=== PATIENT | female | born 1940 | race Caucasian/White ===

== ENCOUNTER 2022-07-19 16:06 | Emergency (ER) | payer MEDICARE, SELFPAY ==
[2022-07-19 16:23] VITALS: BP 157/90; PULSE 72; RESP 18; TEMP 36.8; O2SAT 94; BMI 32.0
--- NOTE | 2022-07-19 16:41 | ED.GENADULT ---
HPI - General Adult General Chief complaint: Nausea/Vomiting Stated complaint: Nausea, vomiting, headache Time Seen by Provider: 07/19/22 16:35 History of Present Illness HPI narrative: This 82-year-old female comes in reporting nausea and vomiting that began this morning. She initially had a headache but states that she no longer has any headache. She does not report any abdominal pain, dysuria, or diarrhea. She does not have respiratory symptoms of cough for congestion she has not had any fever. She continues to feel nauseous. Related Data Previous Rx's Medication Instructions Recorded ondansetron 4 mg disintegrating 4 mg PO Q6H #20 tabs 07/19/22 tablet Allergies Allergy/AdvReac Type Severity Reaction Status Date / Time Penicillins Allergy Verified 07/19/22 16:26 tetracycline Allergy Verified 07/19/22 16:28 Review of Systems Status of ROS: Reports: 10 or more systems reviewed and unremarkable except as noted in History and below Narrative: Constitutional: No fevers, no weight gain or loss. Eyes: No discharge. No vision changes. HENT: No congestion, no sore throat, no ear pain. Cardiovascular: No chest pain, no palpitations. Respiratory: No shortness of breath, no wheezes, no cough. Gastrointestinal: No abdominal pain, no diarrhea. Nausea with vomiting as described above. Genitourinary: No dysuria, no hematuria. Musculoskeletal: Normal range of motion. Skin: No rashes, no pruritis. Neurological: No dizziness, weakness, sensory change, speech change. Endo/Heme/Allergies: No bruising or bleeding. No polydipsia. Pysch: no suicidality, no anxiety, no insomnia. All other systems reviewed and are negative. [facility] Social History Smoking Status: Never smoker Do you use any of these nicotine containing products: None How often do you have a drink containing alcohol: never AUDIT-C Alcohol total score: 0 Exam Narrative: Exam Narrative: Constitutional: Well-developed, well-nourished, no acute distress. HEENT: Normocephalic, atraumatic. Neck: Normal range of motion. Nontender. Supple. Heart: Regular. No murmurs. Normal rate. Intact distal pulses. Lungs: Clear to auscultation. No chest discomfort. No wheezes, rhonchi, or rales. Abdomen: Normal bowel sounds. Nontender. No rebound tenderness. Genitalia: Deferred. Back: No midline tenderness. Normal range of motion. Extremities: Normal range of motion. No injury. Skin: Intact. No rash. Warm. No erythema or pallor. Neurologic: No altered sensation. No weakness. Alert and oriented. Psychiatric: No suicidality. No anxiety or depression. No insomnia. Nursing notes and vitals signs are reviewed. Const: Vital Signs, click to edit/add: Vital Signs - 24 hr 07/19/22 16:23 Temperature 98.3 F Pulse Rate [Right Pulse Oximeter] 72 Respiratory Rate 18 Blood Pressure [Ri ght Upper Arm] 157/90 H Pulse Oximetry 94 Oxygen Delivery Me thod Room Air Course Vital Signs Vital signs: Initial Vital Signs Temperature 98.3 F 07/19/22 16:23 Temperature Source Temporal Artery Scan 07/19/22 16:23 Pulse Rate 72 07/19/22 16:23 Respiratory Rate 18 07/19/22 16:23 Blood Pressure 157/90 H 07/19/22 16:23 Blood Pressure Mean 112 07/19/22 16:23 Blood Pressure Position Sitting 07/19/22 16:23 Pulse Oximetry 94 07/19/22 16:23 Oxygen Delivery Method 07/19/22 16:23 Vital Signs Temperature 98.3 F 07/19/22 16:23 Pulse Rate 72 07/19/22 16:23 Respiratory Rate 18 07/19/22 16:23 Blood Pressure 157/90 H 07/19/22 16:23 Pulse Oximetry 94 07/19/22 16:23 Oxygen Delivery Method 07/19/22 16:23 Temperature 98.3 F 07/19/22 16:23 Pulse Rate 72 07/19/22 16:23 Respiratory Rate 18 07/19/22 16:23 Blood Pressure 157/90 H 07/19/22 16:23 Pulse Oximetry 94 07/19/22 16:23 Oxygen Delivery Method 07/19/22 16:23 Medical Decision Making MDM Narrative Medical decision making narrative: This patient comes in with nausea and vomiting typical of a gastroenteritis. An IV was established and labs were drawn. She received a L of normal saline intravenously along with 4 mg of Zofran. Lab results returned with normal findings except for platelets a bit low at 88. Patient received a 2nd dose of Zofran intravenously as she states that she still was having some nausea. This brought additional relief to her symptoms. She is okay to return home and received a prescription for Zofran. Lab Data Labs: Lab Results 07/19/22 07/19/22 Range/Units 16:40 16:40 WBC 6.05 (4.50-11.00) K/uL RBC 4.17 (4.00-5.20) m/uL Hgb 13.4 (12.0-16.0) gm/dL Hct 40.7 (33.0-51.0) % MCV 98 (80-100) fL MCH 32 (26-34) pg MCHC 33 (32-36) gm/dL Plt Count 88 L (140-440) K/uL Neut % (Auto) 84.1 H (42.0-72.0) % Lymph % (Auto) 9.1 L (20-44) % Harper % (Auto) 6.0 (0.0-11.0) % Eos % (Auto) 0.3 (0.0-7.0) % Baso % (Auto) 0.2 (0.0-3.0) % Neut # (Auto) 5.10 (1.7-7.0) K/uL Lymph # (Auto) 0.60 L (0.90-2.90) K/uL Harper # (Auto) 0.40 (0.00-0.90) K/UL Eos # (Auto) 0.00 (0.00-0.50) K/uL Baso # (Auto) 0.00 (0.00-0.30) K/uL Sodium 135 (135-149) mmol/L Potassium 3.9 (3.6-5.1) mmol/L Chloride 103 (96-114) mmol/L Carbon Dioxide 27 (20-32) mmol/L BUN 14 (7-30) mg/dL Creatinine 0.7 (0.5-1.5) mg/dL Estimated Creat Clear 35.49 Estimated GFR 87 ml/min Glucose 128 H (60-115) mg/dL Calcium 9.4 (8.4-10.6) mg/dL Discharge Plan Discharge Clinical Impression: Gastroenteritis Patient Disposition: Home, Self-Care Condition: Stable Additional Instructions: Take medication as needed and indicated. Increase diet as tolerated. Follow up with MD or return if worsening. Prescriptions: New ondansetron 4 mg tablet,disintegrating 4 mg PO Q6H Qty: 20 0RF Follow Up/Referrals: Provider,Not a Local [Primary Care Provider] - Stand Alone Forms: [employer] Info Instructions
[2022-07-19] MEDS: 0.9 % SODIUM CHLORIDE 1000 ml 1,000 ML IV (17:00)
[2022-07-19 17:01] LABS: White Blood Count* 6.05 K/uL (4.50-11.00)
[2022-07-19 17:02] LABS: Basophils Percent Auto 0.2 % (0.0-3.0); Eosinophils Percent Auto 0.3 % (0.0-7.0); Hematocrit 40.7 % (33.0-51.0); Hemoglobin* 13.4 gm/dL (12.0-16.0); Lymphocytes Percent Auto 9.1 % (20-44); Mean Corpuscular HGB Conc 33 gm/dL (32-36); Mean Corpuscular Hemoglobin 32 pg (26-34); Mean Corpuscular Volume 98 fL (80-100); Neutrophils Percent Auto 84.1 % (42.0-72.0); Platelet Count* 88 K/uL (140-440); Red Blood Count 4.17 m/uL (4.00-5.20); Slide Review Reflex No
[2022-07-19 17:14] LABS: Potassium* 3.9 mmol/L (3.6-5.1)
[2022-07-19 17:15] LABS: Blood Urea Nitrogen* 14 mg/dL (7-30); Calcium* 9.4 mg/dL (8.4-10.6); Carbon Dioxide* 27 mmol/L (20-32); Chloride* 103 mmol/L (96-114); Creatinine* 0.7 mg/dL (0.5-1.5); Est. Creatinine Clearance* 35.49; Estimated Glomerular Filt Rate 87 ml/min; Glucose* 128 mg/dL (60-115); Sodium* 135 mmol/L (135-149)
[2022-07-19] MEDS: ONDANSETRON 2 MG/ML inj 4 MG IVP ×2 (17:52)
--- NOTE | 2022-07-19 17:57 | ED.NURSE ---
the 1st 4mg of zofran was given by this nurse at approx 1700. was charted by Nieves Dhillon at 1730
== END 2022-07-19 18:28 | disposition home or self-care (01) ==
PROVIDERS: Emergency Provider Emergency Medicine Emergency Medical Services
DX: Z53.8 Procedure and treatment not carried out for other reasons (principal)
CPT/HCPCS: 99281; 36415; 80048; 85025; 99284; J2405; J7030

== ENCOUNTER 2022-07-19 21:43 | Emergency (ER) | payer MEDICARE, SELFPAY ==
[2022-07-19 21:50] VITALS: O2SAT 94
[2022-07-19 22:01] VITALS: BP 143/76; PULSE 75; RESP 18; TEMP 37.2; O2SAT 95; BMI 29.9
--- OUTSIDE RECORDS SUMMARY | 2022-07-19 22:57 | XMS_ITS | Encounter Summary ---
:1940 Author Organization [facility] Address [address] [place] [id number] Care Team Providers Name Role Phone Lio Stone MD Primary Care Provider [phone] Reason for Visit Reason Comments Dental Pain Encounter Details Date Type Department Care Team Description 07/24/2020 - [facility] Dental i nfection 07/25/2020 [facility] Emergency Dep t MD [place] [address] [facility] [place] [address] [id number] [phone] [address] [place], [place] [id number] (Wo rk) Social History Tobacco Use Types Packs/Day Years Used Date Smoking Tobacco: Never Smokeless Tobacco: Never Alcohol Use Standard Drinks/Week Comments No 0 (1 standard drink = 0.6 oz pure alcoho l) Sex Assigned at Date Recorded Not on file COVID-19 Exposure Response Date Recorded In the last month, have you been in contact with No / Unsure 07/24/2020 11:46 PM CDT someone who was confirmed or suspected to have Coronavirus / COVID-19? documented as of this encounter Last Filed Vital Signs Vital Sign Reading Time Taken Comments Blood Pressure 177/110 07/24/2020 11:50 PM CDT Pulse 84 07/24/2020 11:50 PM CDT Temperature 36.6 ??C (97.8 ??F) 07/24/2020 11:50 PM CDT Respiratory Rate 16 07/25/2020 12:46 AM CDT Oxygen Saturation 95% 07/24/2020 11:50 PM CDT Inhaled Oxygen Concentration - - Weight - - Height - - Body Mass Index - - documented in this encounter Medications at Time of Discharge Medication Sig Dispensed Refills Start Date End Date clindamycin (CLEOCIN) 300 Take 1 capsule (300 21 capsule 0 1 MG capsule mg) by mouth 3 times daily hydrOXYzine (ATARAX) 25 Take 1-2 tablets 60 tablet 1 2016 MG tablet (25-50 mg) by mouth every 6 hours as needed for itching meloxicam (MOBIC) 7.5 MG TAKE 1 TABLET BY 30 tablet 1 03/15 tabletIndications: Hip MOUTH DAILY pain, right sertraline (ZOLOFT) 25 MG TAKE 1 TAB BY MOUTH 90 tablet 1 0 02/13/2017 tabletIndications: Major DAILY, IF HAVING A depressive disorder, BAD DAY CAN TAKE 1 recurrent episode, mild EXTRA TAB (H) documented as of this encounter ED Notes Aden Ramirez RN - 07/24/2020 11:49 PM CDT Pt in with C/O L upper dental pain. Pt reports she lost her tooth a few days ago and is now having increased pain. No swelling noted. Pt A&Ox4 ABCD's intact David Blue MD - 07/24/2020 11:46 PM CDT History Chief Complaint: Dental Pain HPI Lee Ann Herndon is a 80 year old female who presents with dental pain. The patient states that she lost her left upper tooth a few days ago and woke up tonight with pain. Throbbing aching pain in the empty space over the left upper first premolar mild surrounding gingival swelling. Denies any facial swelling or associated fever, nausea, vomiting, chest pain, shortness of breath, vision change. Allergies: Cephalosporins Clindamycin Erythromycin Penicillins Sympathomimetics Tetracyclines Medications: Atarax mobic zoloft Past Medical History: Arthritis of both knees Colon polyp Depression Esophageal reflux Hiatal hernia Hypertension Parathyroid abnormality Past Surgical History: Ankle surgery Appendectomy D&C Hernia repair Joint replacement Lap cecectomy Right knee replacement Left knee replacement Screws in left ankle Parathyroidectomy Family History: Breast cancer Gallbladder disease Social History: Smoking Status: Never Smoker Smokeless Tobacco: Never Used Alcohol Use: No Drug Use: No PCP: Lio Stone Review of Systems HENT: Positive for dental problem (pain in the left upper ). All other systems reviewed and are negative. Physical Exam Patient Vitals for the past 24 hrs: BP Temp Temp src Pulse Resp SpO2 07/24/20 2350 (!) 177/110 97.8 ??F (36.6 ??C) Temporal 84 16 95 % Physical Exam HEENT: No significant asymmetric facial swelling. No left upper lip for face erythema, vesicles. Intraorally there is mild gingival swelling and erythema over the left upper first premolar bicuspid tooth area. No significant swelling or fluctuance. Overall poor dentition. Absent left bicuspid premolarand obviously cracked first molar, mmm Neck: supple CV: ppi, regular Resp: speaking in full sentences without any resp distress Abd: soft Skin: warm dry well perfused Neuro: Alert, no gross motor or sensory deficits, gait at baseline Emergency Department Course Interventions: 0040 Clindamycin 300 mg oral Emergency Department Course: Past medical records, nursing notes, and vitals reviewed. 0021 I performed an exam of the patient as documented above. Findings and plan explained to the Patient. Patient discharged home with instructions regarding supportive care, medications, and reasons to return. The importance of close follow-up was reviewed. Thepatient was prescribed clindamycin. Impression & Plan Medical Decision Making: Lee Ann Herndon is a 80 year old female who presents to the emergency department today with left upper dental pain with gingival swelling no fluctuance and I do not believe she needs incision and drainage. No significant signs of facial cellulitis at this point. Will start on clindamycin which she s tates she has a sensitivity to but not true allergy. Discharge home no she needs definitive care with dental follow-up. Nothing on examination to suggest acute necrotizing ulcerative gingivitis. Discharge Diagnosis: ICD-10-CM 1. Dental infection K04.7 Disposition: The patient is discharged to home. Discharge Medications: Current Discharge Medication List START taking these medications Details clindamycin (CLEOCIN) 300 MG capsule Take 1 capsule (300 mg) by mouth 3 times daily Qty: 21 capsule, Refills: 0 Scribe Disclosure: Mook Obrien, am serving as a scribe at 12:21 AM on 07/25/2020 to document services personally performed by David Blue MD based on my observations and the provider's statements to me. 07/25/2020 David Blue MD Walker, Jerome Richard, MD 07/25/20 0158 documented in this encounter Plan of Treatment Not on filedocumented as of this encounter Visit Diagnoses Diagnosis Dental infection Acute apical periodontitis of pulpal maria t gin documented in this encounter Administered Medications Inactive Administered Medications - up to 3 most recent administrations Medication Order MAR Action Action Date Dose Rate Site clindamycin (CLEOCIN) capsule 300 Given 07/25/2020 12:40 AM CDT 300 mg mg STAT, 300 mg, Oral, ONCE, On 07/25/20 at 0030, For 1 dose, Indications: dental infection documented in this encounter Active and Recently Administered Medications Times are shown in CDT. Scheduled Medication Order 07/23/2020 07/24/2020 07/25/2020 clindamycin (CLEOCIN) capsule 300 mg (COMPLETED) 0040 (Given - Provider: Karen Estrada) STAT, 300 mg, Oral, ONCE, 07/25/20 a t 0030, For 1 dose, Indications: dental infection documented in this encounter Additional Health Concerns Assessment Noted Time PHQ-9 Depression Total Score: 3 01/18/2017 7:33 AM CDT documented as of this encounter Care Teams Oxygen System Tester Relationship Specialty Start Date End Date Lio Stone MD PCP - General Family Practice 06/19/16 [id number] [place] [address] documented as of this encounter
--- OUTSIDE RECORDS SUMMARY | 2022-07-19 22:57 | XMS_ITS | Encounter Summary ---
:1940 Author Organization Leon Address [facility] [place] [address] Care Team Providers Name Role Phone Lio Stone MD Primary Care Provider [phone] Reason for Visit Auth/Cert Specialty Diagnoses / Procedures Referred By Contact Refer red To Contact Gastroenterology Diagnoses Screening Rh Endoscopy Procedures COLONOSCOPY [address] [place] [address] Phone: Fax: Referral ID Status Reason Start Date Expiration Date Visits Requ ested Visits Authorized [id number] 1 1 Encounter Details Date Type Department Care Team Description 07/03/2016 Hospital Encounter M [facility] Travon Bruce, Endoscopy Ronan BATISTA [address] [place], [place] GASTROENTEROLOGY [address] [address] [facility] [phone] [id number] (Wo rk) Social History Tobacco Use Types Packs/Day Years Used Date Smoking Tobacco: Never Smokeless Tobacco: Never Alcohol Use Standard Drinks/Week Comments No 0 (1 standard drink = 0.6 oz pure alcoho l) Sex Assigned at Date Recorded Not on file documented as of this encounter Last Filed Vital Signs Vital Sign Reading Time Taken Comments Blood Pressure 132/106 07/03/2016 10:30 AM CDT Pulse - - Temperature - - Respiratory Rate 12 07/03/2016 10:30 AM CDT Oxygen Saturation 94% 07/03/2016 10:30 AM CDT Inhaled Oxygen Concentration - - Weight 117 kg (258 lb) 07/03/2016 8:40 AM CDT Height 160 cm (5' 3) 07/03/2016 8:40 AM CDT Body Mass Index 45.7 07/03/2016 8:40 AM CDT documented in this encounter Discharge Instructions Discharge InstructionsAaliyah Biggs RN - 07/03/2016 10:14 AM CDT Images from the original note were not included. Understanding Colon and Rectal Polyps The colon has a smooth lining composed of millions of cells. The colon (also called the large intestine) is a muscular tube that forms the last part of the digestive tract. It absorbs water and stores food waste. The colon is about 4 to 6 feet long. The rectum is the last 6 inches of the colon. The colon and rectum have a smooth lining composed of millions of cells. Changes in these cells can lead to growths in the colon that can become cancerous and should beremoved. When the Colon Lining Changes Changes that occur in the cells that line the colon or rectum can lead to growths called polyps. Over a period of years, polyps can turn cancerous. Removing polyps early may prevent cancer from ever forming. Polyps Polyps are fleshy clumps of tissue that form on the lining of the colon or rectum. Small polyps are usually benign (not cancerous). However, over time, cells in a polyp can change and become cancerous.The larger a polyp grows, the more likely this is to happen. Also, certain types of polyps known as a denomatous polyps are considered premalignant. This means that they will almost always become cancerous if they???re not removed. Cancer Almost all colorectal cancers start when polyp cells begin growing abnormally. As a cancerous tumor grows, it may involve more and more of the colon or rectum. In time, cancer can also grow beyond the colon or rectum and spread to nearby organs or to glands called lymph nodes. The cells can also travel to other parts of the body. This is known as metastasis. The earlier a cancerous tumor is removed, the better the chance of preventing its spread. ?? 1821-0243 Tram [employer], [address] [place] [address], [place] [address]. All rights reserved. This information is not intended as a substitute for professional medical care. Always follow your healthcare professional's instructions. documented in this encounter Medications at Time of Discharge Medication Sig Dispensed Refills Start Date End Date sertraline (ZOLOFT) 25 MG Take 1 tablet (25 90 tablet 1 08/201609/11/2016 tabletIndications: Major mg) by mouth daily depressive disorder, Take 25 mg by mouth recurrent episode, mild daily. If having a (H) bad day can take one extra tablet(PRN). documented as of this encounter Consult Notes Travon Bruce MD - 07/03/2016 9:02 AM CDT Pre-Endoscopy History and Physical Lee Ann Herndon Date of : 1940 Age: [age] year old Date of Procedure: 07/03/2016 Primary care provider: Lio Stone Type of Endoscopy: colonoscopy Reason for Procedure: history of advanced adenoma Type of Anesthesia Anticipated: Moderate (conscious) sedation HPI: Lee Ann is a 76 year old female who will be undergoing the above procedure. A history and physical has been performed. The patient's medications and allergies have been reviewed. The risks and benefits of the procedure and the sedation options and risks were discussed with thepatient. All questions were answered and informed consent was obtained. She denies a personal or family history of anesthesia complications or bleeding disorders. Allergies Allergen Reactions ??? Cephalosporins Hives keflex ??? Clindamycin Diarrhea ??? Erythromycin Nausea and Vomiting and Hives ??? Penicillins Hives and Itching ??? Sympathomimetics Swelling resperidol ??? Tetracyclines Hives and Itching Current Facility-Administered Medications Medication ??? lidocaine 1 % injection 1 mL ??? lidocaine (LMX4) 4% topical cream ??? sodium chloride (PF) 0.9% PF flush 3 mL ??? sodium chloride (PF) 0.9% PF flush 3 mL ??? 0.9% sodium chloride BOLUS ??? sodium chloride (PF) 0.9% PF flush 3 mL ??? ondansetron (ZOFRAN) injection 4 mg Patient Active Problem List Diagnosis ??? Edema ??? Pain in joint, lower leg ??? Generalized osteoarthrosis, unspecified site ??? Anxiety ??? Mild major depression (H) ??? CARDIOVASCULAR SCREENING; LDL GOAL LESS THAN 160 ??? GERD (gastroesophageal reflux disease) ??? Obesity ??? Health Snf ??? HTN, goal below 140/90 ??? Primary hyperparathyroidism (H) ??? Hypocalcemia ??? [place] due to low calcium from parathyroid disease (H) ??? Vitamin D deficiency disease ??? Lumbago ??? ACP (advance care planning) Past Medical History Diagnosis Date ??? Esophageal reflux ??? Depression ??? Hiatal hernia 2010 ??? 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 Hypertension ??? Arthritis of both knees ??? Parathyroid abnormality (H) Past Surgical History Procedure Laterality Date ??? Dilation and curettage after spAb ??? Hernia repair Right ??? Joint replacement Bilateral 2006 - [facility] ??? Ankle surgery Left 2008 - [facility] ??? Appendectomy ??? Parathyroidectomy 01/26/2014 Procedure: PARATHYROIDECTOMY; Surgeon: Vonnie Murphy MD; Location: [facility] OR ??? Colonoscopy 05/30/13 polyps found - repeat in 3 years ??? Colonoscopy 07/03/2016 Dr. Teo GALEAS ??? Orthopedic surgery right knee replacement ??? Orthopedic surgery left knee replacement ??? Orthopedic surgery screws in left ankle Social History Substance Use Topics ??? Smoking status: Never Smoker ??? Smokeless tobacco: Never Used ??? Alcohol Use: No Family History Problem Relation Age of Onset ??? Breast Cancer Mother ??? Breast Cancer Sister ??? Other Cancer Father Pancreatic ??? Gallbladder Disease Sister ??? Colon Cancer No family hx of REVIEW OF SYSTEMS: 5 point ROS negative except as noted above in HPI, including Gen., Resp., CV, GI & system review. PHYSICAL EXAM: Ht 1.6 m (5' 3) Wt 117.028 kg (258 lb) BMI 45.71 kg/m2 Estimated body mass index is 45.71 kg/(m^2) as calculated from the following: Height as of this encounter: 1.6 m (5' 3). Weight as of this encounter: 117.028 kg (258 lb). GENERAL APPEARANCE: healthy MENTAL STATUS: alert AIRWAY EXAM: Mallampatti Class I (visualization of the soft palate, fauces, uvula, anterior and posterior pillars) RESP: lungs clear to auscultation - no rales, rhonchi or wheezes CV: regular rates and rhythm DIAGNOSTICS: Not indicated IMPRESSION ASA Class 1 - Healthy patient, no medical problems PLAN: Colonoscopy The above has been forwarded to the consulting provider. Signed Electronically by: Travon Bruce July 03, 2016 documented in this encounter Plan of Treatment Not on filedocumented as of this encounter Procedures Procedure Name Priority Date/Time Associated Comments Diagnosis SURGICAL PATHOLOGY Routine 07/03/2016 9:23 AM Res ults for this EXAM CDT procedure are i n the results section. COLONOSCOPY Routine 07/03/2016 9:06 AM Results f or this CDT procedure are i n the results section. COLONOSCOPY, WITH 07/03/2016 9:04 AM Screening POLYPECTOMY AND CDT BIOPSY TATTOOING, WITH 07/03/2016 9:04 AM Screening COLONOSCOPY CDT COLONOSCOPY, 07/03/2016 9:04 AM Screening FLEXIBLE, WITH LESION CDT REMOVAL USING SNARE documented in this encounter Results Surgical pathology exam (07/03/2016 9:23 AM CDT) Component Value Ref Test Analysis Performed At Vericept Range Method Time Signature Copath Report Patient Name: LEE ANN HERNDON MR#: [id number] Specimen #: [id number] Collected: 07/03/2016 Received: 07/03/2016 Reported: 07/04/2016 14:03 Ordering Phy(s): TRAVON BRUCE SPECIMEN(S): Cecal polyp FINAL DIAGNOSIS: Cecum, polyp, biopsy/polypectomy- - Fragments of tubular adenoma. - Polyp size: ??15 mm (per endoscopy report). - Incomplete resection (per endoscopy report). - Negative for high-grade dysplasia and malignancy within sa mpled tissue. Electronically signed out by: Lulu Haywood M.D. CLINICAL HISTORY: Screening. GROSS: The specimen labeled cecal large polyp consists of several (4-6) irregular pale dave soft tissue fragments ranging in greatest dimension from 0.1 - 0.4 cm. ??Entirely submitted in a single cassette . (Dictated by: Lulu Haywood MD 07/03/2016 02:53 PM) MICROSCOPIC: Microscopic examination is performed. CPT Codes: A: 26489-MW9 TESTING LAB LOCATION: [facility] [address] [place], [place] ??[address] COLLECTION SITE: Client: [facility] Location: SIVAO (R) Specimen (Source) Anatomical Collection Method Collection Time Re ceived Time Location / / Volume Laterality Polyp CECUM STRUCTURE / 07/03/2016 9:23 AM (morphologic Unknown CDT abnormality) Comment: Lio Stone RN Travon CHAIREZ - ANY Performing Organization Address City/State/ZIP Code Phon e Number COPATH COLONOSCOPY (07/03/2016 9:06 AM CDT) [facility] Method Time Signature COLONOSCOPY [facility] RAD IOLOGY RESULTS Patient Name: Lee Ann Herndon ?Procedure Date: 07/03/2016 9:06 AM ? Accou nt Number: [id number] Date of : 1940 ?Admit Type: Out patient Age: 76 ? Gender: Female Attending MD: Travon Bruce MD ??Instrument Name: 138 Procedure: ?Colonoscopy Indications: ?High risk colon CA surveillance: Personal history ?adenoma with villous component Providers: ?Travon Bruce MD (Doctor), Joy Montana, ?RN (Nurse) Referring MD: ? Lio Stone MD (Refe meño BATISTA) Medicines: ?Fentanyl 100 micrograms IV, Midazolam 4 mg IV Complications: ?No immediate complications. Procedure: ?Pre-Anesthesia Assessment: ?- Prior to the procedure, a History and Physical ?was performed, and patient medications and ?allergies were reviewed. The patient is competent. ?The risks and benefits of the procedure and the ?sedation options and risks were discussed with the ?patient. All questions were answered and informed ?consent was obtained. Patient identification and ?proposed procedure were verified by the physician ?in the pre-procedure area. Mental Status ?E xamination: alert and oriented. Airway ?Examination: normal oropharyngeal airway and neck ?mobility. Respiratory Examination: clear to ?auscultation. CV Examination: normal. Prophylactic ?Antibiotics: The patient does not require ?prophylactic antibiotics. Prior Anticoagulants: The ?patient has taken no previous anticoagulant or ?antiplatelet agents. ASA Grade Assessment: II - A ?patient with mild systemic disease. After reviewing ?the risks and benefits, the patient was deemed in ?satisfactory condition to undergo the procedure. ?The anesthesia plan was to use moderate sedation / ?analgesia (conscious sedation). Immediately prior ?to administration of medications, the patient was ?re-assessed for adequacy to receive sedatives. The ?heart rate, respiratory rate, oxygen saturations, ?blood pressure, adequacy of pulmonary ventilation, ?and response to care were monitored throughout the ?procedure. The physical status of the patient was ?re-assessed after the procedure. ?After obtaining informed consent, the colonoscope ?was passed under direct vision. Throughout the ?procedure, the patient's blood pressure, pulse, and ?oxygen saturations were monitored continuously. The ?Olympus Peds Colonoscope Model #[id number]-H190L, ?[place]#138, SN#[id number] was introduced through the ?anus and advanced to the cecum, identified by ?appendiceal orifice and ileocecal valve. The ?colonoscopy was performed without difficulty. The ?patient tolerated the procedure well. The quality ?of the bowel preparat ion was good. ? Findings: ? A sessile polyp was f ound in the cecum. The polyp was 15 mm in size. The ? polyp was removed with a Printed Piece ld forceps. The polyp was removed with ? a saline injection-li ft technique using a hot snare. Polyp resection was ? incomplete due to proximity to appendiceal orifice an d inability to ? adequately lift the polyp. ? Impression: ? - One 15 mm polyp in the cecum. Incomplete ?resection. Recommendation: ? - Await pathology results. ?- Refer to a colo-rectal surgeon at appointment to ?be scheduled. ? Procedure Code(s): ? --- Professional --- ? 00527, Colonoscopy, flexible, pro ximal to splenic flexure; with removal ? of tumor(s), polyp(s), or other lesion(s) by snare te chnique ? 07066, Colonoscopy, f lexible, proximal to splenic flexure; with directed ? submucosal injection(s), any substance CPT copyright 2013 [employer]. All rights reserved. The codes documented in this report are prelimin bailey and upon speech language pathology assistant review may be revised to meet current compliance requirements. Travon Bruce M.D. Travon Bruce MD 07/03/2016 10:05 AM Number of Addenda: 0 Note Initiated On: 07/03/2016 9:06 AM MRN: ?[id number] Procedure Date: ? 07/03/2016 9:06:50 AM Scope Withdrawal Time: 0 hours 36 minutes 59 seconds Total Procedure Duration: 0 hours 41 minutes 15 seconds Estimated Blood Loss: ? Scope In: 9:14:19 AM Scope Out: 9:55:34 AM Specimen (Source) Anatomical Collection Method Collection Time Re ceived Time Location / / Volume Laterality 07/03/2016 9:06 AM CDT Lio Stone MD PROCEDURES Performing Organization Address City/State/ZIP Code Phon e Number RADIOLOGY RESULTS documented in this encounter Visit Diagnoses Not on filedocumented in this encounter Active and Recently Administered Medications Times are shown in CDT. PRN Medication Order 07/01/2016 07/02/2016 07/03/2016 fentaNYL Citrate (PF) (SUBLIMAZE) injection (CANCELED) 0911 (Given - Provider: Travon Bruce MD) PRN, Starting 07/03/16 at 0911, Intra-procedure midazolam (VERSED) injection (CANCELED) 0911 (Given - Provider: Travon Bruce MD)0938 (Given - Provider: Joy Montana, RN - Comment: vorb)0946 (Given - Provider: Aaliyah Biggs RN - Comment: vorkong burden) PRN, Starting 07/03/16 at 0911, Intra-procedure sodium chloride (PF) 0.9% PF flush 3 mL (CANCELED) 0911 (Given - Provider: Travon Bruce MD)0938 (Given - Provider: Joy Montana RN) 3 mL, Intracatheter, EVERY 1 HOUR PRN, l ine flush, for peripheral IV flush post IV meds, Starting 07/03/16 at 0838, Pre-procedure sodium chloride (PF) 0.9% PF flush 3 mL (CANCELED) 0946 (Given - Provider: Aaliyah Biggs, ERICKSON) 3 mL, Intravenous, EVERY 1 MIN PRN, line flush, after medication administration, Starting 07/03/16 at 0838, For peripheral IV flush post IV meds, Pre-procedure documented in this encounter Additional Health Concerns Assessment Noted Time PHQ-9 Depression Total Score: 18 06/28/2016 7:24 AM CD T documented as of this encounter Care Teams Student Finance Advisor Relationship Specialty Start Date End Date Lio Stone MD PCP - General Family Practice 06/19/16 [address] [place] [address] documented as of this encounter
--- OUTSIDE RECORDS SUMMARY | 2022-07-19 22:57 | XMS_ITS | Encounter Summary ---
:1940 Author Organization [place] Address [address] [place] [address] Care Team Providers Name Role Phone Lio Stone MD Primary Care Provider [phone] Lio Stone MD Unavailable [phone] Lio Stone MD Unavailable [phone] Reason for Visit Reason Comments Ankle Pain Encounter Details Date Type Department Care Team Description 08/27/2016 Emergency [facility] Shemar Chen, Acute right ankle pain; [facility] Emergency Dep t Acute gouty arthritis [address] [facility] [place], [place] [address] [address] [facility] [address] [place] [address] (Wo rk) Social History Tobacco Use Types Packs/Day Years Used Date Smoking Tobacco: Never Smokeless Tobacco: Never Alcohol Use Standard Drinks/Week Comments No 0 (1 standard drink = 0.6 oz pure alcoho l) Sex Assigned at Date Recorded Not on file documented as of this encounter Last Filed Vital Signs Vital Sign Reading Time Taken Comments Blood Pressure 130/86 08/27/2016 4:05 AM [employer] Pulse 106 08/27/2016 2:26 AM [employer] Temperature 36.6 ??C (97.9 ??F) 08/27/2016 2:26 AM [employer] Respiratory Rate 18 08/27/2016 2:26 AM [employer] Oxygen Saturation 99% 08/27/2016 4:05 AM [employer] Inhaled Oxygen Concentration - - Weight - - Height - - Body Mass Index - - documented in this encounter Discharge Instructions AttachmentsThe following attachments cannot be sent through Care Everywhere.GOUT ([place])documented in this encounter Medications at Time of Discharge Medication Sig Dispensed Refills Start Date End Date docusate sodium Take 1 capsule (100 mg) 20 capsule 0 016 10/18/2016 (COLACE) 100 MG by mouth 3 times daily capsule as needed for constipation HYDROcodone-acetamino Take 1-2 tablets by 15 tablet 0 08/2710/18/2016 phen (NORCO) 5-325 MG mouth every 4 hours as per tablet needed for moderate to severe pain sertraline (ZOLOFT) Take 1 tablet (25 mg) 90 tablet 1 02/0909/11/2016 25 MG by mouth daily Take 25 tabletIndications: mg by mouth daily. 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 documented as of this encounter ED Notes Cher Gan RN - 08/27/2016 4:07 AM CST Pt ABCs intact and CMS intact. Ankle splint already applied per MD verbal order. Discharge instructions completed. Prescription provided to patient. Shemar Novak MD - 08/27/2016 2:35 AM CST History Chief Complaint: Ankle Pain HPI Lee Ann Herndon is a 76 year old female with history of gout who presents to the ED for evaluation of right ankle pain. The patient indicates that she woke up this morning with right ankle pain. Shereports that she tried to take a warm bath and did not have significant relief with the warm bath. She denies any other symptoms including cough or cold symptoms. Allergies: Cephalosporins Clindamycin Erythromycin Penicillins Tetracyclines Medications: Zoloft Past Medical History: GERD Depression Hiatal hernia Hypertension Parathyroid abnormality Past Surgical History: D&C Hernia repair Ankle surgery Appendectomy Parathyroidectomy Family History: Cancer Social History: Negative for tobacco use. Negative for alcohol use. Marital Status: Review of Systems Musculoskeletal: Ankle pain All other systems reviewed and are negative. Physical Exam First Vitals: BP: 135/89 mmHg Pulse: 106 Heart Rate: 106 Temp: 97.9 ??F (36.6 ??C) Resp: 18 SpO2: 97 % Physical Exam General: The patient is alert, in no respiratory distress. HENT: Mucous membranes moist. Cardiovascular: Regular rate and rhythm. Good pulses in all four extremities. Normal capillary refill and skin turgor. Respiratory: Lungs are clear. No nasal flaring. No retractions. No wheezing, no crackles. Gastrointestinal: Abdomen soft. No guarding, no rebound. No palpable hernias. Musculoskeletal: No gross deformity. Skin: No rashes or petechiae. Neurologic: The patient is alert and oriented x3. GCS 15. No testable cranial nerve deficit. Followscommands with clear and appropriate speech. Gives appropriate answers. Good strength in all extremities. No gross neurologic deficit. Gross sensation intact. Pupils are round and reactive. No meningismus. Lymphatic: No cervical adenopathy. Bilateral lower extremity swelling no swelling in the right ankleor erythema or the right ankle, pain with movement of the right ankle Psychiatric: The patient is non-tearful. Emergency Department Course Imaging: Radiographic findings were communicated with the patient who voiced understanding of the findings. Ankle XR, G/E 3 views, right 1. No visualized acute fracture, malalignment or other acute osseous abnormality of the right ankle. 2. A small 0.7 cm focus of mild irregularity at the medial aspect of the talar dome. This is nonspecific, but could represent an osteochondral defect. 3. Mild degenerative changes in the tibiotalar joint. 4. Plantar calcaneal spur. As per radiology. Interventions: 0254 Salem 5-325mg PO 0351 Percocet 5-325mg PO Emergency Department Course: Nursing notes and vitals reviewed. I performed an exam of the patient as documented above. The patient was sent for x-ray while in the emergency department, findings above. 0341 I reevaluated the patient and offered to do an provided an arthrocentesis and the patient declines at this time. I gave her an update in regards to her ED course. I personally reviewed the imaging results with the Patient and answered all related questions prior to discharge. Findings and plan explained to the Patient. Patient discharged home with instructions regarding supportive care, medications, and reasons to return. The importance of close follow-up was reviewed. The patient was prescribed Salem and Colace. Impression & Plan Medical Decision Making: Lee Ann Herndon is a 76 year old female with a history of gout who presents without any recent trauma she turned over and suddenly had pain. There is pain with movement of her right ankle only but no signs of erythema, warmth or significant swelling of that joint. She does have some mild swelling of that leg but no shortness of breath, PND or orthopnea or suggest CHF. I discuss doing arthrocentesis but the patient would not consent to it. Therefore, I imaged the joint with x-ray which was negative except for the findings described above, no fracture and suggestion of osteomyelitis. I felt that this was likely gout and the patient twill follow up with her primary care physician. She was written for pain medication and ankle strips were applied. Diagnosis: ICD-10-CM 1. Acute right ankle pain M25.571 2. Acute gouty arthritis M10.9 Discharge Medications: Discharge Medication List as of 08/27/2016 3:45 AM START taking these medications Details HYDROcodone-acetaminophen (NORCO) 5-325 MG per tablet Take 1-2 tablets by mouth every 4 hours as needed for moderate to severe pain, Disp-15 tablet, R-0, Local Print docusate sodium (COLACE) 100 MG capsule Take 1 capsule (100 mg) by mouth 3 times daily as needed forconstipation, Disp-20 capsule, R-0, Local Print Yvan Serrano 08/27/2016 [facility] IYvan Said, am serving as a scribe on 08/27/2016 at 2:35 AM to personally document services performed by Shemar Chen MD based on my observations and the provider's statements to me. Shemar Chen MD 08/27/16 0625 [employer] Radha Nuñez RN - 08/27/2016 2:26 AM CST Pt complains of sudden non traumatic left ankle pain, notes bilateral legs have been swollen for weeks, but the pain is new. [employer] documented in this encounter Plan of Treatment Not on filedocumented as of this encounter Procedures Procedure Name Priority Date/Time Associated Diagnosis Comme nts XR ANKLE RIGHT G/E STAT 08/27/2016 3:16 AM Res ults for this 3 VIEWS [employer] procedure are i n the results section. documented in this encounter Results Ankle XR, G/E 3 views, right (08/27/2016 3:16 AM [employer]) Anatomical Region Laterality Modality Left Ankle Right Computed Radiography Specimen (Source) Anatomical Location Collection Method / Collectio n Time Received Time / Laterality Volume Impressions 08/27/2016 11:47 AM [employer] IMPRESSION: 1. No visualized acute fracture, malalig nment or other acute osseous abnormality of the right ankle. 2. Mild degenerative changes in the tibi otalar joint. A small 0.7 cm focus of mild lucent irregularity at the medial aspect of the talar dome was also present on 04/09/2009, but is mildly more prominent. This could represent cystic degenerative hong ges or an old osteochondral injury. 3. Plantar calcaneal spur. EDWIGE JIMENEZ MD Narrative 08/27/2016 11:47 AM [employer] RIGHT ANKLE 3 VIEWS ?? 08/27/2016 3:16 AM HISTORY: Pain. Evaluate for occult fract ure. COMPARISON: 04/09/2009. Procedure Note Edwige Jimenez MD - 08/27/2016Fo rmatting of this note might be different from the original. RIGHT ANKLE 3 VIEWS 08/27/2016 3:16 AM HISTORY: Pain. Evaluate for occult fract ure. COMPARISON: 04/09/2009. IMPRESSION: 1. No visualized acute fracture, malalig nment or other acute osseous abnormality of the right ankle. 2. Mild degenerative changes in the tibi otalar joint. A small 0.7 cm focus of mild lucent irregularity at the medial aspect of the talar dome was also present on 04/09/2009, but is mildly more prominent. This could represent cystic degenerative hong ges or an old osteochondral injury. 3. Plantar calcaneal spur. EDWIGE JIMENEZ MD Shemar Chen MD IMG DIAGNOSTIC IMAGING ORDER BERNARDO documented in this encounter Visit Diagnoses Diagnosis Acute right ankle pain Acute gouty arthritis Acute gouty arthropathy documented in this encounter Administered Medications Inactive Administered Medications - up to 3 most recent administrations Medication Order MAR Action Action Date Dose Rate Site HYDROcodone-acetaminophen Given 08/27/2016 2:54 AM [employer] 1 tablet (NORCO) 5-325 MG per tablet 1 tablet 1 tablet, Oral, ONCE, On 08/27/16 at 0244, For 1 dose, Maximum acetaminophen dose from all sources= 75 mg/kg/day not to exceed 4 grams oxyCODONE-acetaminophen (PERCOCET) 5-325 MG Given 08/02 3:51 AM [employer] 1 tablet per tablet 1 tablet 1 tablet, Oral, ONCE, On 08/27/16 at 0342, For 1 dose, Maximum acetaminophen dose from all sources= 75 mg/kg/day not to exceed 4 grams documented in this encounter Active and Recently Administered Medications Times are shown in [employer]. Scheduled Medication Order 08/25/2016 08/26/2016 08/27/2016 HYDROcodone-acetaminophen (NORCO) 5-325 MG per tablet 1 tablet ( COMPLETED) 0254 (Given - Provider: Cher Gan RN) 1 tablet, Oral, ONCE, 08/27/16 at 02 44, For 1 dose, Maximum acetaminophen dose from all sources= 75 mg/kg/day not to exceed 4 grams oxyCODONE-acetaminophen (PERCOCET) 5-325 MG per tablet 1 tablet (COMPLETED) 0351 (Given - Provider: Cher Gan RN) 1 tablet, Oral, ONCE, 08/27/16 at 03 42, For 1 dose, Maximum acetaminophen dose from all sources= 75 mg/kg/day not to exceed 4 grams documented in this encounter Additional Health Concerns Assessment Noted Time PHQ-9 Depression Total Score: 18 06/28/2016 7:24 AM CD T documented as of this encounter Care Teams Manager Group Home Relationship Specialty Start Date End Date Lio Stone MD PCP - General Family Practice 06/19/16 [address] [place], [place] [id number] Lio Stone MD PCP - Assigned PCP 07/09/16 12/03/18 [address] [place], [place] [id number] Lio Stone MD Assigned PCP 07/09/16 01/24/20 [address] [place] [address] documented as of this encounter
--- OUTSIDE RECORDS SUMMARY | 2022-07-19 22:57 | XMS_ITS | Encounter Summary ---
:1940 Author Organization [facility] Address [address] [place] [address] Care Team Providers Name Role Phone Lio Stone MD Primary Care Provider [phone] Encounter Details Date Type Department Care Team Description 03/15/2020 Travel Social History Tobacco Use Types Packs/Day Years Used Date Smoking Tobacco: Never Smokeless Tobacco: Never Alcohol Use Standard Drinks/Week Comments No 0 (1 standard drink = 0.6 oz pure alcoho l) Sex Assigned at Date Recorded Not on file COVID-19 Exposure Response Date Recorded In the last month, have you been in contact with No / Unsure 03/15/2020 5:32 PM CDT someone who was confirmed or suspected to have Coronavirus / COVID-19? documented as of this encounter Plan of Treatment Not on filedocumented as of this encounter Visit Diagnoses Not on filedocumented in this encounter Additional Health Concerns Infection Onset Date Last Indicated Resolved Time Rule Out COVID-19 03/15/2020 03/15/2020 03/16/2020 6:2 6 PM CDT Assessment Noted Time PHQ-9 Depression Total Score: 3 01/18/2017 7:33 AM CDT documented as of this encounter Care Teams Lead Investigator Relationship Specialty Start Date End Date Lio Stone MD PCP - General Family Practice 06/19/16 [address] [place] [address] documented as of this encounter
--- OUTSIDE RECORDS SUMMARY | 2022-07-19 22:57 | XMS_ITS | Encounter Summary ---
:1940 Author Organization [facility] Address [facility] [facility] [place] [address] Care Team Providers Name Role Phone Lio Stone MD Primary Care Provider [phone] Encounter Details Date Type Department Care Team Description 07/02/2016 Telephone [facility] Nurse Tricia Mosher, Advisors RN [address] [place] [address] Social History Tobacco Use Types Packs/Day Years Used Date Smoking Tobacco: Never Smokeless Tobacco: Never Alcohol Use Standard Drinks/Week Comments No 0 (1 standard drink = 0.6 oz pure alcoho l) Sex Assigned at Date Recorded Not on file documented as of this encounter Miscellaneous Notes Telephone Encounter - Daylin Mosher RN - 07/02/2016 3:39 PM CDT Call Type: Triage Call Presenting Problem: Patient calling with a question about her prep for colonoscopy tomorrow. Triage Note: Guideline Title: Information Only Call; No Symptom Triage (Adult) Recommended Disposition: Call Provider When Office is Open Original Inclination: Override Disposition: Intended Action: Physician Contacted: No Requesting information not available per approved reference or clinical experience; no triage required. ? YES Requesting regular office appointment ? NO Sign(s) or symptom(s) associated with a diagnosed condition or with a new illness ? NO Requesting information about provider, services or community resources ? NO Call back to complete assessment/clarification of information from prior caller to complete triage ? NO Requesting information and provider is best resource; no triage required. ? NO Requesting provider information for recently scheduled test, procedure; no triage required. Needed information not available per approved resources or clinical experience. ? NO Physician Instructions: Care Advice: documented in this encounter Plan of Treatment Not on filedocumented as of this encounter Visit Diagnoses Not on filedocumented in this encounter Additional Health Concerns Assessment Noted Time PHQ-9 Depression Total Score: 18 06/28/2016 7:24 AM CD T documented as of this encounter Care Teams Propulsion Machinery Service Engineer Relationship Specialty Start Date End Date Lio Stone MD PCP - General Family Practice 06/19/16 [address] [place] [address] documented as of this encounter
--- OUTSIDE RECORDS SUMMARY | 2022-07-19 22:57 | XMS_ITS | Encounter Summary ---
:1940 Author Organization [facility] Address [facility] [place] [address] Care Team Providers Name Role Phone Lio Stone MD Primary Care Provider Lio Stone MD Unavailable [phone] Lio Stone MD Unavailable [phone] Reason for Visit Auth/Cert Specialty Diagnoses / Procedures Referred By Contact Refer red To Contact Surgery Diagnoses Right colon polyp Rh Periop Services Procedures LAPAROSCOPIC CECECTOMY COLECTOMY RIGHT [address] [place], [place] [address] Phone: Fax: Referral ID Status Reason Start Date Expiration Date Visits Requ ested Visits Authorized [id number] 1 1 Encounter Details Date Type Department Care Team Description 10/24/2016 Surgery [facility] Priti KellerROSCOP IC CECECTOMY [facility] delonte Ansari MD WITH LYSIS OF ADHESIONS [address] COLON RECTAL [place], [place] SURGERY [id number] [address] [facility] [phone] [address] [place], [place] [id number] (Wo rk) Surgery Details Date/Time Status Location OR Service Patient Case Case Traum a Class Class Type Case? 10/24/16 1:40 Posted RH OR OR 08 [facility] PM Admit Panel 1 Procedure LRB Anes Op Region Wound Class Commen ts LAPAROSCOPIC N/A General Abdomen II-Clean Contaminated L APAROSCOPIC CECECTOMY WITH LYSIS BEBETO CTOMY WITH LYSIS OF ADHESIONS OF ADHESIONS Surgeon Surgeon Role Service Panel Priti Keller MD Primary [facility] 1 Special Needs Hgt 5'3 and Wgt 265 lbs documented in this encounter Social History Tobacco Use Types Packs/Day Years Used Date Smoking Tobacco: Never Smokeless Tobacco: Never Alcohol Use Standard Drinks/Week Comments No 0 (1 standard drink = 0.6 oz pure alcoho l) Sex Assigned at Date Recorded Not on file documented as of this encounter Last Filed Vital Signs Vital Sign Reading Time Taken Comments Blood Pressure 150/81 10/24/2016 12:07 PM DENTAL NURSE Pulse - - Temperature 36.2 ??C (97.2 ??F) 10/24/2016 12:07 PM DENTAL NURSE Respiratory Rate 18 10/24/2016 12:07 PM DENTAL NURSE Oxygen Saturation 94% 10/24/2016 12:07 PM DENTAL NURSE Inhaled Oxygen Concentration - - Weight 120.5 kg (265 lb 9.6 oz) 10/24/2016 12:02 PM DENTAL NURSE Height 160 cm (5' 3) 10/24/2016 12:02 PM DENTAL NURSE Body Mass Index 47.05 10/24/2016 12:02 PM DENTAL NURSE documented in this encounter Discharge Instructions Discharge InstructionsAlix Barrett RN - 10/24/2016 6:02 PM CST GENERAL ANESTHESIA OR SEDATION ADULT DISCHARGE INSTRUCTIONS SPECIAL PRECAUTIONS FOR 24 HOURS AFTER SURGERY IT IS NOT UNUSUAL TO FEEL LIGHT-HEADED OR FAINT, UP TO 24 HOURS AFTER SURGERY OR WHILE TAKING PAIN MEDICATION. IF YOU HAVE THESE SYMPTOMS; SIT FOR A FEW MINUTES BEFORE STANDING AND HAVE SOMEONE ASSIST YOU WHEN YOU GET UP TO WALK OR USE THE BATHROOM. YOU SHOULD REST AND RELAX FOR THE NEXT 24 HOURS AND YOU MUST MAKE ARRANGEMENTS TO HAVE SOMEONE STAY WITH YOU FOR AT LEAST 24 HOURS AFTER YOUR DISCHARGE. AVOID HAZARDOUS AND STRENUOUS ACTIVITIES. DO NOTMAKE IMPORTANT DECISIONS FOR [address] ANY VEHICLE OR OPERATE MECHANICAL EQUIPMENT FOR 24 HOURS FOLLOWING THE END OF YOUR SURGERY. EVEN THOUGH YOU MAY FEEL NORMAL, YOUR REACTIONS MAY BE AFFECTED BY THE MEDICATION YOU HAVE RECEIVED. DO NOT DRINK ALCOHOLIC BEVERAGES FOR 24 HOURS FOLLOWING YOUR SURGERY. DRINK CLEAR LIQUIDS (APPLE JUICE, NICOLE KALIN, 7-UP, BROTH, ETC.). PROGRESS TO YOUR REGULAR DIET YOU FEEL ABLE. YOU MAY HAVE A DRY MOUTH, A SORE THROAT, MUSCLES ACHES OR TROUBLE SLEEPING. THESE SHOULD GO AWAY AFTER 24 HOURS. CALL YOUR DOCTOR FOR ANY OF THE FOLLOWING: SIGNS OF INFECTION (FEVER, GROWING TENDERNESS AT THE SURGERY SITE, A LARGE AMOUNT OF DRAINAGE OR BLEEDING, SEVERE PAIN, FOUL-SMELLING DRAINAGE, REDNESS OR SWELLING. IT HAS BEEN OVER 8 TO 10 HOURS SINCE SURGERY AND YOU ARE STILL NOT ABLE TO URINATE (PASS WATER). 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 documented as of this encounter Progress Notes Priti Keller MD - 10/25/2016 9:14 AM CST Colon & Rectal Surgery Progress Note Interval History: Postop Day #: 1 Feeling well up walking, voiding Pain controlled Medications: I have reviewed this patient's current medications Physical Exam: Blood pressure 132/53, temperature 98.2 ??F (36.8 ??C), temperature source Oral, resp. rate 16, height 1.6 m (5' 3), weight 120.475 kg (265 lb 9.6 oz), SpO2 92 %, not currently . Intake/Output Summary (Last 24 hours) at 10/25/16 0914 Last data filed at 10/25/16 0800 Gross per 24 hour Intake 2300 ml Output 1825 ml Net 475 ml GEN: alert ABD: Soft, incsions CDi Data: NA 141 10/17/2016 CHLORIDE 106 10/17/2016 BUN 15 10/17/2016 POTASSIUM 4.3 10/17/2016 CO2 27 10/17/2016 CR 0.91 10/17/2016 CR 1.09 06/28/2016 Lab Results Component Value Date HGB 10.4* 10/17/2016 HGB 10.4* 06/28/2016 Lab Results Component Value Date PLT 205 10/17/2016 PLT 168 06/28/2016 Lab Results Component Value Date WBC 7.3 10/17/2016 WBC 7.6 06/28/2016 Assessment and Plan: Dc home Priti Keller MD [facility] Office AL NURSE Jonathan Malagon - 10/24/2016 4:04 PM CST SPIRITUAL HEALTH SERVICES SPIRITUAL ASSESSMENT Progress Note [facility] OR Beds 3 PRIMARY FOCUS: ??? Goals of care ??? Symptom/pain management ??? Emotional/spiritual/confucianist distress ??? Support for coping ILLNESS CIRCUMSTANCES: Reviewed documentation. Reflective conversation shared with Claude, her , and one of her granddaughters which integrated elements of illness and family narratives. ??? Context of Serious Illness/Symptom(s) - Claude is in the hospital to have a colon polyp removed. ??? Persons/Resources Involved - Her , children and grandchildren are her primary sources of support. DISTRESS: ??? Emotional/Existential/Relational Distress - Another one of Claude's granddaughters was in a sever car accident and is currently hospitalized in [place], [place] in critical condition. ??? Spiritual/Judaism Distress - none discussed ??? Social/Cultural/Economic Distress - none discussed SPIRIT (Coping): ??? Advent/Donna - Latter Day ??? Spiritual Practice(s) - Prayer and gladly welcomed prayer ??? Emotional/Existential/Relational Connections - none named SENSE-MAKING: ??? Goals of Care - Claude is unsure if she will be discharged or if she will stay. She said it will beup to the doctor during the procedure. ??? Meaning/Sense-Making - none explicitly stated. PLAN: [facility] will continue to be available per patient/family/staff request. Jonathan Malagon Electric Truck Driver Pager [phone] AL NURSE documented in this encounter H&P Notes Holly Ascencio - 10/23/2016 10:59 AM CST This note is for the purpose of making the H&P performed in clinic within the last 30 days available in the hospital surgical encounter. AL NURSE Source Note - Lio Stone MD - 10/17/2016 10:37 AM DENTAL NURSE [address] [address] Dept: [phone] PRE-OP EVALUATION: Today's date: 10/17/2016 Lee Ann Herndon (: 1940) presents for pre-operative evaluation assessment as requested byDr. Lenore Keller She requires evaluation and anesthesia risk assessment prior to undergoing surgery/procedure for treatment of colon . Proposed procedure: partial colectomy Date of Surgery/ Procedure:10/24/16 Time of Surgery/ Procedure: 10:00 am Hospital/Surgical Facility: [facility] care {SURGERY FAX NUMBER:[id number]::Fax number for surgical facility: [phone] Primary Physician: Lio Stone Type of Anesthesia Anticipated: Patient has a Health Care Directive or Living Will: YES 1. NO - Do you have a history of heart attack, stroke, stent, bypass or surgery on an artery in the head, neck, heart or legs? 2. NO - Do you ever have any pain or discomfort in your chest? 3. NO - DO YOU HAVE A HISTORY OF HEART FAILURE no 3. NO - Do you have a history of Heart Failure? 4. NO - Are you troubled by shortness of breath when: walking on the level, up a slight hill or at night? 5. NO - Do you currently have a cold, bronchitis or other respiratory infection? 6. NO - Do you have a cough, shortness of breath or wheezing? 7. NO - Do you sometimes get pains in the calves of your legs when you walk? 8. NO - Do you or anyone in your family have previous history of blood clots? 9. NO - Do you or does anyone in your family have a serious bleeding problem such as prolonged bleeding following surgeries or cuts? 10. YES - Have you ever had problems with anemia or been told to take iron pills? 11. YES - Have you had any abnormal blood loss such as black, tarry or bloody stools, or abnormal vaginal bleeding? 12. NO - Have you ever had a blood transfusion? 13. NO - Have you or any of your relatives ever had problems with anesthesia? 14. NO - Do you have sleep apnea, excessive snoring or daytime drowsiness? 15. NO - Do you have any prosthetic heart valves? 16. YES- Do you have prosthetic joints? 17. NO - Is there any chance that you may be ? HPI: Brief HPI related to upcoming procedure: had polpy on colonoscopy See problem list for active medical problems. Problems all longstanding and stable, except as noted/documented. See ROS for pertinent symptoms related to these conditions. . MEDICAL HISTORY: Patient Active Problem List Diagnosis Date Noted ??? HTN, goal below 140/90 01/19/2014 Priority: Medium ??? ACP (advance care planning) 08/05/2015 Advance Care Planning 08/05/2015: ACP Review and Resources Provided: Reviewed chart for advance careplan. Lee Ann Herndon has no plan and PRIOR/FULL code status on file. Discussed available resources and provided with information. Confirmed code status reflects current choices pending further ACP discussions. Confirmed/documented legally designated decision maker(s). Added by JAZMIN Gonsalez ??? Lumbago 05/01/2014 ??? Vitamin D deficiency disease 02/09/2014 ??? Hypocalcemia 02/03/2014 ??? 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 Primary hyperparathyroidism (H) 01/26/2014 ??? Health Assisted 02/12/2012 [facility] for senior planning manager. Nithya Tom RN-BSN, [facility] [phone] DX V65.8 REPLACED WITH 75150 HEALTH ASSISTED (01/06/2013) ??? Obesity 01/18/2011 ??? GERD (gastroesophageal reflux disease) 12/15/2010 ??? CARDIOVASCULAR SCREENING; LDL GOAL LESS THAN 160 07/31/2010 ??? Anxiety 04/04/2010 ??? Mild major depression (H) 04/04/2010 ??? Edema 10/23/2003 ??? Pain in joint, lower leg 10/23/2003 ??? Generalized osteoarthrosis, unspecified site 10/23/2003 Past Medical History Diagnosis Date ??? Esophageal [...] ??? Orthopedic surgery screws in left ankle ??? Colonoscopy N/A 07/03/2016 Procedure: COMBINED COLONOSCOPY, SINGLE OR MULTIPLE BIOPSY/POLYPECTOMY BY BIOPSY; Surgeon: Travon Bruce MD; Location: GI Current Outpatient Prescriptions Medication Sig Dispense Refill ??? sertraline (ZOLOFT) 25 MG tablet Take 1 tablet (25 mg) by mouth daily Take 25 mg by mouth daily.If having a bad day can take one extra tablet(PRN). 90 tablet 1 ??? HYDROcodone-acetaminophen (NORCO) 5-325 MG per tablet Take 1-2 tablets by mouth every 4 hours asneeded for moderate to severe pain 15 tablet 0 ??? docusate sodium (COLACE) 100 MG capsule Take 1 capsule (100 mg) by mouth 3 times daily as neededfor constipation 20 capsule 0 OTC products: None, except as noted above Allergies Allergen Reactions ??? Cephalosporins Hives keflex ??? Clindamycin Diarrhea ??? Erythromycin Nausea and Vomiting and Hives ??? Penicillins Hives and Itching ??? Sympathomimetics Swelling resperidol ??? Tetracyclines Hives and Itching Latex Allergy: NO Social History Substance Use Topics ??? Smoking status: Never Smoker ??? Smokeless tobacco: Never Used ??? Alcohol Use: No History Drug Use No REVIEW OF SYSTEMS: C: NEGATIVE for fever, chills, change in weight I: NEGATIVE for worrisome rashes, moles or lesions E: NEGATIVE for vision changes or irritation E/M: NEGATIVE for ear, mouth and throat problems R: NEGATIVE for significant cough or SOB B: NEGATIVE for masses, tenderness or discharge CV: NEGATIVE for chest pain, palpitations or peripheral edema GI: NEGATIVE for nausea, abdominal pain, heartburn, or change in bowel habits : NEGATIVE for frequency, dysuria, or hematuria MUSCULOSKELETAL:arthralgias right hip and low back N: NEGATIVE for weakness, dizziness or paresthesias E: NEGATIVE for temperature intolerance, skin/hair changes P: NEGATIVE for changes in mood or affect EXAM: There were no vitals taken for this visit. GENERAL APPEARANCE: healthy, alert and no distress EYES: EOMI,- PERRL HENT: ear canals and TM's normal and nose and mouth without ulcers or lesions NECK: no adenopathy, no asymmetry, masses, or scars and thyroid normal to palpation RESP: lungs clear to auscultation - no rales, rhonchi or wheezes CV: regular rates and rhythm, normal S1 S2, no S3 or S4 and no murmur, click or rub - ABDOMEN: soft, nontender, no HSM or masses and bowel sounds normal MS: extremities normal- no gross deformities noted, no evidence of inflammation in joints, FROM in all extremities. SKIN: no suspicious lesions or rashes NEURO: Normal strength and tone, sensory exam grossly normal, mentation intact and speech normal PSYCH: mentation appears normal. and affect normal/bright LYMPHATICS: No axillary, cervical, inguinal, or supraclavicular nodes DIAGNOSTICS: EKG: appears normal, NSR, normal axis, normal intervals, no acute ST/T changes c/w ischemia, no LVH by voltage criteria, unchanged from previous tracings Recent Labs Lab Test 06/28/16 2115 06/28/16 1910 06/27/16 1012 02/03/14 0105 12/15/13 1353 HGB 10.4* 10.9* 11.5* < > 13.8 < > -- PLT -- 168 165 < > 135* -- -- INR -- 1.02 -- -- 1.00 -- -- NA -- 142 141 < > 141 -- 140 POTASSIUM -- 4.0 4.4 < > 4.0 -- 4.5 CR -- 1.09* 0.98 < > 0.90 -- 0.97 A1C -- -- -- -- -- -- 5.8 < > = values in this interval not displayed. IMPRESSION: Reason for surgery/procedure: partial colectomy Diagnosis/reason for consult: colon polpy Dr. Keller The proposed surgical procedure is considered INTERMEDIATE risk. REVISED CARDIAC RISK INDEX The patient has the following serious cardiovascular risks for perioperative complications such as (IL, PE, VFib and 3?? AV Block): No serious cardiac risks INTERPRETATION: 1 risks: Class II (low risk - 0.9% complication rate) The patient has the following additional risks for perioperative complications: RECOMMENDATIONS: (Z01.818) Preop general physical exam (primary encounter diagnosis) Comment: Plan: EKG 12-lead complete w/read - Clinics Fit for surgery Signed Electronically by: Lio Stone MD Copy of this evaluation report is provided to requesting physician. [facility] Preop Guidelines AL NURSE documented in this encounter Nursing Notes Estefania Taylor RN - 10/24/2016 8:04 PM CST Report phone to floor ERICKSON Banda. Will deliver filled take home prescription with chart. AL NURSE Estefania Taylor RN - 10/24/2016 7:[address] Keller contacted. Pt. Very sleepy and is requiring 5 l O2 via oxi mask. Orders obtained to have pt stay overnight. Pt is in agreement. AL NURSE documented in this encounter Miscellaneous Notes Plan of Care - Hollie Palmer RN - 10/25/2016 12:01 PM CST Problem: Goal Outcome Summary Goal: Goal Outcome Summary Outcome: Adequate for Discharge Date Met: 10/25/16 A & Ox4, VSS, O2 sats on RA 92%, reports abdominal discomfort, declined intervention. Abdominal lap sites dermabonded, c/d/i. Voiding spontaneously, positive bowel sounds and flatus. PIV removed. Discharge instructions reviewed with patient, [place]/discharge med given to patient. Discharge to home in c/o and granddaughter. AL NURSE Plan of Care - Cheryl Daley RN - 10/25/2016 7:33 AM CST Problem: Individualization Goal: Patient Preferences Outcome: Improving POD#1 Was on 3L O2 via nasal cannula at 00, weaned down to 2 liters, using IS With encouragement---1500, Continuous pulse oximetry in place when sleeping Bowel sounds faint/hypoactive, no flatus. large bruise on left buttock/lower back from a fall that occurred prior to admission. Lap sites with dermabond---CDI Voiding without difficulty, urine dark sofya with sediment Rating abd pain 0-4/10, declined any pain meds this shift Up with SBA and cane Slept well between cares, calls appropriately AL NURSE Plan of Care - Veronika Palmer RN - 10/24/2016 10:41 PM CST Problem: Goal Outcome Summary Goal: Goal Outcome Summary Outcome: No Change Pt currently on 3L O2 via nasal cannula. Oxygen saturation 93-98%. Continuous pulse oximetry in place. Bowel sounds faint and hypoactive, no flatus. Pt has a large bruise on left buttock/lower back from a fall previously. Incisions to abdomen well approximated with liquid bandage. Flores removed at 530pm, pt has no urge to void. Bladder scanned at 2230 for 59 ml. Pt reporting abdominal pain rated at 4/10, one tablet of norco administered for pain. Pt lethargic at times, encouraging oral intake of fluids. 2+ edema to bilateral ankles/feet. BLE slightly oskar/dusky in color. AL NURSE Op Note - Arianna, Priti Ansari MD - 10/24/2016 5:32 PM CST DATE OF PROCEDURE: 10/24/2016 PREOPERATIVE DIAGNOSIS: Endoscopically unresectable polyp at the appendiceal orifice. POSTOPERATIVE DIAGNOSIS: Endoscopically unresectable polyp at the appendiceal orifice. PROCEDURE: Laparoscopic cystectomy and lysis of adhesions. SURGEON: Priti Keller MD COMMUNITY CASE MANAGER: Luz Lemons PA-C ANESTHESIA: General endotracheal anesthesia plus 30 mL of 0.25% Marcaine. INDICATIONS: Lee Ann Herndon is a 76-year-old woman who had a screening colonoscopy and was found to have a 1.5 cm polyp extending into the appendiceal orifice. This was not felt to be endoscopically resectable. Therefore, she was referred for surgical resection. She was briefed on the risks of bleeding, infection, leak, possible need for a more formal right hemicolectomy, depending on the location and scarring. She was also briefed on the risks of anesthesia in general, abdominal surgery, including but not limited to DVT, PE, heart attack, stroke, urinary tract infection, blood clots, leak, damage to surrounding structures and even . She understood and wished to proceed. FINDINGS: There was quite a bit of adhesions and scar tissue surrounding her cecum as she had had a prior open appendectomy. Once these were released, we could clearly see the ileocecal junction and were able to staple across. The appendiceal orifice was in the center of the specimen, and there was a 1.5 cm polyp there with grossly negative margins. DESCRIPTION OF PROCEDURE: After informed consent was obtained, the patient was taken to the operating room, positioned on the operating table in supine position. Pressure points were padded. SCDs were placed. She was intubated, and a Flores catheter and orogastric tube were placed. Her abdomen was prepped and draped in the usual fashion. After appropriate timeout, I began by making a 1 cm incision in the infraumbilical fold. The fascia was incised and peritoneal cavity was entered without difficulty.An 0 Vicryl suture was placed in U fashion at the level of the fascia, and a Josette port was inserted. The abdomen was insufflated to a pressure of 15, and careful inspection did reveal some scarring in the right lower quadrant. No visible peritoneal or liver lesions were seen. Two 5 mm ports were placed in the left lateral abdomen under direct vision after numbing the area. The patient was then positioned in Trendelenburg with the right side up, and we began the tedious task of identifying her anatomy. The lateral attachments of the right colon were divided, and the cecum was elevated up off the retroperitoneum. We then incised some scar tissue from the terminal ileum to the cecum. This was incised. Then the ileocecal valve area was identified. The fold of Treves was divided from the terminal ileum and left more prominently adherent to the ascending colon. The LigaSure was then used to remove some additional scar tissue in what was likely the mesoappendix off of the inferior portion of the cecum. The appendiceal stump was then identified, and the cecum was freed up circumferentially, staying right on the edge of the bowel as there was quite a bit of scar tissue here. Once we had done this, we could elevate the appendiceal stump and felt we had adequate length to staple across. We were able to stable 95% with 1 stapling device after carefully assessing that the ileocecal valve was free. An additional load of the ANALISA blue load universal was used to divide the cecum. The specimen was then placed in an Endocatch bag and removed through the umbilical port without difficulty. This was opened on the backtable, and the presumed appendiceal stump was, in fact that. There was a polyp surrounding the orifice that had at least 1 cm negative margin circumferentially. We then removed the 5 mm ports after irrigating the resection bed, which was nicely hemostatic. The port sites were also hemostatic. CO2 was evacuated from the abdomen. The Josette port was removed, and the fascia was reapproximated with a previously placed 0 Vicryl suture. The wounds were irrigated, and the remainder of the 30 mL ofMarcaine was instilled into the 3 wounds. The skin edges were reapproximated with 4-0 Monocryl and Dermabond. She was taken to the recovery area intubated and in stable condition. ESTIMATED BLOOD LOSS: Less than 10 mL. FLUIDS: She received 1.8 liters of fluid. SPECIMEN: The cecum and appendiceal stump. PRITI KELLER MD MT: [id number] Name: LEE ANN HERNDON MRN: [id number] Account: [id number] : 1940 Procedure Date: 10/24/2016 Document: [id number] cc: Lio Bruce MD AL NURSE Brief Op Note - Luz Lemons PA-C - 10/24/2016 5:11 PM CST [facility] Brief Operative Note Pre-operative diagnosis: Cecal colon polyp Post-operative diagnosis cecal polyp At the appendiceal orifice, grossly negative margins Procedure: Procedure(s): LAPAROSCOPIC CECECTOMY - Wound Class: II-Clean Contaminated Surgeon(s): Surgeon(s) and Role: * Priti Keller MD - Primary Luz Lemons PA-C Estimated blood loss: * No values recorded between 10/24/2016 3:00 PM and 10/24/2016 5:11 PM * Specimens: ID Type Source Tests Collected by Time Destination A : cecum polyp and tissue Tissue Large Intestine, Cecum SURGICAL PATHOLOGY EXAM Priti Keller MD 10/24/2016 4:53 PM Findings: Prior appendectomy, 1.5cm poly at the appendiceal orifice, negative margins IVF: 1800 UOP: Condition on discharge from OR: Satisfactory Luz Lemons PA-C [facility] [phone]. ADDENDUM: PATIENT DATA Indicate Y or N: Home O2 No Hemodialysis No Transplant patient No Cirrhosis No Steroids in last 30 days No Immunomodulators in last 30 days No Anticoagulation at time of surgery No List medication n/a Prior abdominal surgery Yes Pelvic irradiation No Albumin within 30 days if known Hgb within 30 days if known HEMOGLOBIN Date Value Ref Range Status 10/17/2016 10.4* 11.7 - 15.7 g/dL Final ] Cr within 30 days if known CREATININE Date Value Ref Range Status 10/17/2016 0.91 0.52 - 1.04 mg/dL Final ] Body mass index is 47.06 kg/(m^2). OR DATA Emergent No <24 hours No <1 week No Bowel Prep Yes Antibiotics No DVT prophylaxis Heparin Yes SCD Yes None No Drain No ASA (1,2,3,4) 2 OR time (min) 149 Stents No Transfuse >/= 2U No Anastomosis Stapled No Handsewn No Leak Test Positive No Negative No Not done No FOR CANCER ALSO COMPLETE: n/a AL NURSE Pharmacy-Admission Medication History - Miracle Duran [facility] - 10/20/2016 5:45 PM CST Admission medication history interview status for this patient is complete. See [facility] admission navigator for allergy information, prior to admission medications and immunization status. Medication history interview source(s):Patient Medication history resources (including written lists, pill bottles, clinic record):- Primary pharmacy:- [facility] meds completed by pre-admitting nurse Ana Paula Bah and reviewed by pharmacy Actions taken by pharmacist (provider contacted, etc):None Additional medication history information:None Medication reconciliation/reorder completed by provider prior to medication history? N/A For patients on insulin therapy: No Prior to Admission medications Medication Sig Last Dose Taking? Auth Provider sertraline (ZOLOFT) 25 MG tablet Take 1 tablet (25 mg) by mouth daily Take 25 mg by mouth daily. If having a bad day can take one extra tablet(PRN). Yes Lio Stone MD AL NURSE documented in this encounter Plan of Treatment Not on filedocumented as of this encounter Procedures Procedure Name Priority Date/Time Associated Comments Diagnosis SURGICAL PATHOLOGY Routine 10/24/2016 4:53 PM Res ults for this EXAM DENTAL NURSE procedure are i n the results section. EXCISION, CECUM, 10/24/2016 2:10 PM cecal polyp LAPAROSCOPIC DENTAL NURSE Special Needs Hgt 5'3 and Wgt 265 lbs documented in this encounter Results Surgical pathology exam (10/24/2016 4:53 PM DENTAL NURSE) Component Value Ref Test Analysis Performed At [facility] Range Method Time Signature Copath Report Patient Name: LEE ANN HERNDON MR#: [id number] Specimen #: [id number] Collected: 10/24/2016 Received: 10/25/2016 Reported: 10/26/2016 09:12 Ordering Phy(s): PRITI KELLER For improved result formatting, select 'View Enhanced Report Format' under Linked Documents section. SPECIMEN(S): Cecal polyp and tissue FINAL DIAGNOSIS: Cecum, cecectomy. - Tubular adenoma. ??Negative for high grade dysplasia and m alignancy. Margins negative for adenomatous change. Electronically signed out by: Mehdi Sapp M.D. CLINICAL HISTORY: Right colon polyp. GROSS: The specimen is received in formalin labeled with the patien t's name, identifying information and cecum polyp and tissue. ??It c onsists of a 3 x 2.5 cm partially opened cecectomy specimen. ??The serosa is pink-purple with scattered adhesions. ??The mucosa is remark able for a 1.5 x 0.5 cm bosselated friable raised lesion which is 1 cm or greater from the margins. ??The specimen is perpendicularly sectione d. Laborer General sections are submitted in 4 blocks to include the entire lesion. ??Sections with lesion also include perpendicular ma rgins. (Dictated by: Jeremy Godoy 10/25/2016 09:18 AM) MICROSCOPIC: Microscopic evaluation performed. CPT Codes: A: 87156-YF7 TESTING LAB LOCATION: [address] ??[id number] COLLECTION SITE: Client: [facility] Location: [facility] (R) Specimen (Source) Anatomical Collection Method Collection Time Re ceived Time Location / / Volume Laterality Tissue specimen CECUM STRUCTURE / 10/24/2016 4:53 PM (specimen) Unknown DENTAL NURSE Priti Keller MD [facility] Performing Organization Address City/State/ZIP Code Phon e Number COPATH documented in this encounter Visit Diagnoses Not on filedocumented in this encounter Administered Medications Inactive Administered Medications - up to 3 most recent administrations Medication Order MAR Action Action Date Dose Rate Site bupivacaine 0.25 % - Given 10/24/2016 5:08 PM 30 mLs Operative EPINEPHrine 1:200,000 DENTAL NURSE Sit e/Surgical Site (PF) injection PRN, Starting on Sun10/24/16 at 1708, Intra-procedure sodium chloride 0.9% (bag) Given 10/24/2016 5:02 PM 400 mLs Operative Site/Surgical irrigation DENTAL NURSE Site PRN, Starting on Sun10/24/16 at 1702, Intra-procedure documented in this encounter Active and Recently Administered Medications Times are shown in DENTAL NURSE. Scheduled Medication Order 10/23/2016 10/24/2016 10/25/2016 acetaminophen (TYLENOL) tablet 975 mg (COMPLETED) 1232 (Given - Provider: Alberta Magaña RN) 975 mg, Oral, ONCE, Sun10/24/16 at 1215, For 1 dose, IF acetaminophen (TYLENOL) not already order by Anesthesia. Maximum acetaminophen dose from all sources = 75 mg/kg/day not to exceed 4 grams/day., Pre-procedure ciprofloxacin (CIPRO) infusion 400 mg (CANCELED) 1445 (Given - Provider: Gabe Smalls APRN CRNA) 400 mg, Intravenous, SEE ADMIN INSTRUCTI ONS, Starting Sun10/24/16 at 1204, Intra-Op Dose.?Give every 6 hours while patient in surgery, starting 6 hours after pre-op dose.?DO NOT GIVE intra-op dose if CrCl less than 10 mL/min (on dialysi s).?If CrCl less than 50 mL/min, double the time interval between doses., Indications: Surgical Prophylaxis, Pre-procedure heparin sodium PF injection 5,000 Units (COMPLETED) 1258 (Given - Provider: Alberta Magaña RN) 5,000 Units, Subcutaneous, PRE-OP/PRE-IA OCEDURE, Starting Sun10/24/16 at 1245, For 1 dose, Verify order with Information Technology Auditor provider prior to Administering., Pre-procedure metroNIDAZOLE (FLAGYL) infusion 500 mg (COMPLETED) 1425 (Given - Provider: Gabe Smalls APRN CRNA) 500 mg, Intravenous, PRE-OP/PRE-PROCEDUR E, Starting Sun10/24/16 at 1204, For 1 dose, Give within one hour of procedure., Indications: Surgical Prophylaxis, Pre-procedure Continuous Medication Order 10/23/2016 10/24/2016 10/25/2016 lactated ringers infusion (CANCELED) 142 5 (New Bag - Provider: Gabe Smalls APRN CRNA)1453 (New Bag - Provider: Gabe Smalls APRN CRNA)1712 (Anesthesia Volume Adjustment - Provider: Tiffany Pritchard, COKE INSPECTOR CROWN AND BRIDGE TECHNICIAN) at 25 mL/hr, Intravenous, CONTINUOUS, IF patient NOT on dialysis., Pre- procedure, Starting Sun10/24/16 at 1215, Until Sun10/24/16 at 1721 lactated ringers infusion (CANCELED) 174 7 (New Bag - Provider: Alix Barrett, RN) at 100 mL/hr, Intravenous, CONTINUOUS, C ontinue until IV catheter is weaned, PACU, Starting Sun10/24/16 at 1730, Until Sun10/24/16 at 203 PRN Medication Order 10/23/2016 10/24/2016 10/25/2016 bupivacaine 0.25 % - EPINEPHrine 1:200,000 (PF) injection (C ANCELED) 170 (Given - Provider: Priti Keller MD) PRN, Starting Sun10/24/16 at 1708, Intra-procedure HYDROcodone-acetaminophen (NORCO) 5-325 MG per tablet 1-2 ta blet (CANCELED) 2206 (Given - Provider: Veronika Palmer, ERICKSON) 1-2 tablet, Oral, EVERY 4 HOURS PRN, mod erate to severe pain, Starting Sun10/24/16 at 2031, Hold while on ENGLISH AS A SECOND LANGUAGE TEACHER or with regular IV opioid dosing. Maximum acetaminophen dose from all sources= 75 mg/kg/day not to exceed 4 grams, Post-procedure lidocaine 1 % 1 mL (CANCELED) 1436 (Given - Prov ider: Jacques Thomas MD) 1 mL, Other, EVERY 1 HOUR PRN, mild pain with VAD insertion or accessing implanted port, Starting Sun10/24/16 at 1204, Do NOT give if patient has a history of allergy to any local anesthetic or any tj ne product. MAX dose 1 mL subcutaneous OR intradermal in divided doses., Pre-procedure sodium chloride (PF) 0.9% PF flush 3 mL (CANCELED) 2048 (Given - Provider: Nikki Silva LPN) 3 mL, Intravenous, EVERY 1 HOUR PRN, aníbal e flush, post meds or blood draw, Starting Sun10/24/16 at 203, for peripheral IV line flush post IV meds, Post-procedure sodium chloride 0.9% (bag) irrigation (CANCELED) 170 (Given - Provider: Priti Keller MD) PRN, Starting 10/24/16 at 1702, Intra-procedure documented in this encounter Additional Health Concerns Assessment Noted Time PHQ-9 Depression Total Score: 18 06/28/2016 7:24 AM CD T documented as of this encounter Care Teams Electrician Supervisor Substation Relationship Specialty Start Date End Date Lio Stone MD PCP - General Family Practice 06/19/16 [id number] [place], [place] [id number] Lio Stone MD PCP - Assigned PCP 07/09/16 12/03/18 [address] [place], [place] [id number] Lio Stone MD Assigned PCP 07/09/16 01/24/20 [address] [place], [place] [phone] documented as of this encounter
--- OUTSIDE RECORDS SUMMARY | 2022-07-19 22:57 | XMS_ITS | Encounter Summary ---
:1940 Author Organization [place] Address Formerly [facility], [id number] [place] [address] Care Team Providers Name Role Phone Lio Stone MD Primary Care Provider Lio Stone MD Unavailable [phone] Lio Stone MD Unavailable [phone] Reason for Visit Reason Comments Results lab Sinus Problem 1 days Encounter Details Date Type Department Care Team Description 01/17/[address] [facility] Lio Stone Iron d eficiency anemia due to chronic blood loss (Primary Dx); Clinic Lowman MD Quan Hip pain, right [address] [place] [id number] [phone] Social History Tobacco Use Types Packs/Day Years Used Date Smoking Tobacco: Never Smokeless Tobacco: Never Alcohol Use Standard Drinks/Week Comments No 0 (1 standard drink = 0.6 oz pure alcoho l) Sex Assigned at Date Recorded Not on file documented as of this encounter Last Filed Vital Signs Vital Sign Reading Time Taken Comments Blood Pressure 138/80 01/17/2017 11:48 AM CDT Pulse 96 01/17/2017 11:48 AM CDT Temperature 36.8 ??C (98.2 ??F) 01/17/2017 11:48 AM CDT Respiratory Rate 18 01/17/2017 11:48 AM CDT Oxygen Saturation 95% 01/17/2017 11:48 AM CDT Inhaled Oxygen Concentration - - Weight 124.3 kg (274 lb) 01/17/2017 11:48 AM CDT Height 160 cm (5' 3) 01/17/2017 11:48 AM CDT Body Mass Index 48.54 01/17/2017 11:48 AM CDT documented in this encounter Progress Notes Lio Stone MD - 01/17/2017 11:30 AM CDT SUBJECTIVE: Lee Ann Herndon is a 76 year old female who presents to clinic today for the following health issues: Acute Illness Acute illness concerns: sinus Onset: 1 days ?? Fever: no ?? Chills/Sweats: YES ?? Headache (location?): YES ?? Sinus Pressure:YES ?? Conjunctivitis: no ?? Ear Pain: no ?? Rhinorrhea: no ?? Congestion: YES ?? Sore Throat: no ?? Cough: no ?? Wheeze: no ?? Decreased Appetite: YES a little ?? Nausea: no ?? Vomiting: no ?? Diarrhea: no ?? Dysuria/Freq.: no ?? Fatigue/Achiness: YES ?? Sick/Strep Exposure: no Therapies Tried and outcome: Advil this morning Past Medical History: Diagnosis Date ??? Arthritis of both knees ??? 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 Depression ??? Esophageal reflux ??? Hiatal hernia 2010 ??? Hypertension ??? Parathyroid abnormality (H) Past Surgical History: Procedure Laterality Date ??? ANKLE SURGERY Left 2008 - ??? APPENDECTOMY ??? COLONOSCOPY 05/30/13 polyps found - repeat in 3 years ??? COLONOSCOPY 07/03/2016 Dr. Bruce [facility] ??? COLONOSCOPY N/A 07/03/2016 Procedure: COMBINED COLONOSCOPY, SINGLE OR MULTIPLE BIOPSY/POLYPECTOMY BY BIOPSY; Surgeon: Travon Bruce MD; Location: [facility] ??? DILATION AND CURETTAGE after spAb ??? HERNIA REPAIR Right ??? JOINT REPLACEMENT Bilateral 2006 - Theodore Palmer ??? LAPAROSCOPIC CECECTOMY N/A 10/24/2016 Procedure: LAPAROSCOPIC CECECTOMY; Surgeon: Samia Keller MD; Location: [facility] OR ??? ORTHOPEDIC SURGERY right knee replacement ??? ORTHOPEDIC SURGERY left knee replacement ??? ORTHOPEDIC SURGERY screws in left ankle ??? PARATHYROIDECTOMY 01/26/2014 Procedure: PARATHYROIDECTOMY; Surgeon: Vonnie Murphy MD; Location: [facility] OR Family History Problem Relation Age of Onset ??? Breast Cancer Mother ??? Breast Cancer Sister ??? Other Cancer Father Pancreatic ??? Gallbladder Disease Sister ??? Colon Cancer No family hx of Social History Substance Use Topics ??? Smoking status: Never Smoker ??? Smokeless tobacco: Never Used ??? Alcohol use No Hip xray doesn't suggest severe djd, she doesn't want intervention whether it's back Or hip On exam the vital signs are stable Weight is Body mass index is 48.54 kg/(m^2). Eyes show nataliya No neck masses or thyromegaly.Ear nose and throat shows normal No bruits, murmers, rubs or extrasounds. No cardiomegaly or chest wall tenderness. Lungs clear, no abdominal masses or organomegaly. No CVA tenderness. Skin eval no rash No hernias, good range of motion neck, back and extremities. No abnormal skin lesions. Normal genitalia. Good peripheral pulses. No adenopathy. Normal gait and stance. Neck is supple. Back exam shows limited extension lumbar, splints right hip , tender right trochanteric bursa (D50.0) Iron deficiency anemia due to chronic blood loss (primary encounter diagnosis) Comment: Plan: ferrous gluconate (FERGON) 324 (38 FE) MG Tablet: Limit nsaids 6 week follow up (M25.551) Hip pain, right Comment: Plan: meloxicam (MOBIC) 7.5 MG tablet documented in this encounter Nursing Notes Anabel Valenzuela CMA - 01/17/2017 11:30 AM CDT Chief Complaint Patient presents with ??? Results lab ??? Sinus Problem 1 days Initial BP 148/90 (BP Location: Right arm, Patient Position: Chair, Cuff Size: Adult Large) Pulse 96 Temp 98.2 ??F (36.8 ??C) (Oral) Resp 18 Ht 5' 3 (1.6 m) Wt 274 lb (124.3 kg) SpO2 95% BMI 48.54 kg/m2 Estimated body mass index is 48.54 kg/(m^2) as calculated from the following: Height as of this encounter: 5' 3 (1.6 m). Weight as of this encounter: 274 lb (124.3 kg). Medication Reconciliation: complete documented in this encounter Plan of Treatment Not on filedocumented as of this encounter Visit Diagnoses Diagnosis Iron deficiency anemia due to chronic bl ood loss - Primary Iron deficiency anemia secondary to bloo d loss (chronic) Hip pain, right Pain in joint, pelvic region and thigh documented in this encounter Additional Health Concerns Assessment Noted Time PHQ-9 Depression Total Score: 3 01/18/2017 7:33 AM CDT documented as of this encounter Care Teams Plumbing Inspector Relationship Specialty Start Date End Date Lio Stone MD PCP - General Family Practice 06/19/16 [id number] [place] [address] Lio Stone MD PCP - Assigned PCP 07/09/16 12/03/18 [address] [place] [address] Lio Stone MD Assigned PCP 07/09/16 01/24/20 [address] [place] [address] documented as of this encounter
--- OUTSIDE RECORDS SUMMARY | 2022-07-19 22:57 | XMS_ITS | Encounter Summary ---
:1940 Author Organization [place] Address [address] [place] [id number] Care Team Providers Name Role Phone Lio Stone MD Primary Care Provider Lio Stone MD Unavailable [phone] Lio Stone MD Unavailable [phone] Reason for Visit Reason Comments Shortness of Breath Rash Encounter Details Date Type Department Care Team Description 03/10/2017 Emergency [facility] Rustam carlton, Leo Persaud MD [facility] Emergency Dept [facility] [address] [place] [phone] [place] [address] (Wo rk) Social History Tobacco Use Types Packs/Day Years Used Date Smoking Tobacco: Never Smokeless Tobacco: Never Alcohol Use Standard Drinks/Week Comments No 0 (1 standard drink = 0.6 oz pure alcoho l) Sex Assigned at Date Recorded Not on file documented as of this encounter Last Filed Vital Signs Vital Sign Reading Time Taken Comments Blood Pressure 152/84 03/10/2017 4:00 PM CDT Pulse - - Temperature 36.9 ??C (98.5 ??F) 03/10/2017 2:53 PM CDT Respiratory Rate - - Oxygen Saturation 96% 03/10/2017 4:00 PM CDT Inhaled Oxygen Concentration - - Weight - - Height - - Body Mass Index - - documented in this encounter Discharge Instructions Discharge InstructionsHoughland, Leo Hung, MD - 03/10/2017 4:05 PM CDT Images from the original note were not included. Nonspecific Dermatitis Dermatitis is a skin rash caused by something that touches the skin and makes it irritated and inflamed.?? Your skin may be red, swollen, dry, and may be cracked. Blisters may form and ooze. The rash will itch. Dermatitis can form on the face and neck, backs of hands, forearms, genitals, and lower legs. Dermatitis is not passed from person to person. Talk with your health care provider about what may have caused the rash. Common things that cause skin allergies are metal in jewelry, plants like poison oralia or poison oak, and certain skin care products. You will need to avoid the source of your rash in the future to prevent it from coming back. In some cases, the cause of the dermatitis may not be found. Treatment is done to relieve itching and prevent the rash from coming back. The rash should go away in a few days to a few weeks. Home care The health care provider may prescribe medications to relieve swelling and itching. Follow all instructions when using these medications. ?? Avoid anything that heats up your skin, such as hot showers or baths, or direct sunlight. This can make itching worse. ?? Stay away from whatever you think caused the rash. ?? Bathe in warm, not hot, water. Apply a moisturizing lotion after bathing to prevent dry skin. ?? Avoid skin irritants such as wool or silk clothing, grease, oils, harsh soaps, and detergents. ?? Apply cold compresses to soothe your sores to help relieve your symptoms. Do this for 30 minutes 3 to 4 times a day. You can make a cold compress by soaking a cloth in cold water. Squeeze out excesswater. You can add colloidal oatmeal to the water to help reduce itching. For severe itching in a small area, apply an ice pack wrapped in a thin towel. Do this for 20 minutes 3 to 4 times a day. ?? You can also help relieve large areas of itching by taking a lukewarm bath with colloidal oatmealadded to the water. ?? Use hydrocortisone cream for redness and irritation, unless another medicine was prescribed. You can also use benzocaine anesthetic cream or spray. ?? Use oral diphenhydramine to help reduce itching. This is an antihistamine you can buy at drug [employer]. It can make you sleepy, so use lower doses during the daytime. Or you can use loratadine. This is an antihistamine that will not make you sleepy. Don???t use diphenhydramine if you haveglaucoma or have trouble urinating because of an enlarged prostate. ?? Wash your hands or use an antibacterial gel often to prevent the spread of the rash. Follow-up care Follow up with your health care provider. Make an appointment with your health care provider if yoursymptoms do not get better in the next 1 to 2 weeks. When to seek medical advice Call your health care provider right away??if any of these occur: ?? Spreading of the rash to other parts of your body ?? Severe swelling of your face, eyelids, mouth, throat or tongue ?? Trouble urinating due to swelling in the genital area ?? Fever of 100.4??F (38??C) or higher ?? Redness or swelling that gets worse ?? Pain that gets worse ?? Foul-smelling fluid leaking from the skin ?? Yellow-brown crusts on the open blisters ?? Joint pain? [id number] [employer]. [address] [place] [address]. All rights reserved. This information is not intended as a substitute for professional medical care. Always follow your healthcare professional's instructions. documented in this encounter Medications at Time of Discharge Medication Sig Dispensed Refills Start Date End Date hydrOXYzine (ATARAX) 25 Take 1-2 tablets 60 tablet 1 2016 MG tablet (25-50 mg) by mouth every 6 hours as needed for itching sertraline (ZOLOFT) 25 MG TAKE 1 TAB BY MOUTH 90 tablet 1 0 02/13/2017 tabletIndications: Major DAILY, IF HAVING A depressive disorder, BAD DAY CAN TAKE 1 recurrent episode, mild EXTRA TAB (H) predniSONE (DELTASONE) 20 Take 2 tablets (40 8 tablet 0 03/15/2017 MG tablet mg) by mouth daily for 4 days meloxicam (MOBIC) 7.5 MG Take 1 tablet (7.5 30 tablet 1 03/14/2017 tabletIndications: Hip mg) by mouth daily pain, right documented as of this encounter ED Notes Ciara Palmer RN - 03/10/2017 4:16 PM CDT A/O. VSS. PIV removed. Pt verbalized understanding of d/c instructions and ambulated to [facility]. Script rx atarax and prednisone given to pt at time of d/c Oumou Zapata RN - 03/10/2017 2:50 PM CDT Patient presents today with bilateral lower forearm rash that started 3 weeks ago. Notes they started as pustule and is now scabbed and erythemic. Patient also here for SOB that started this AM. AOX4, ABC's intact. Leo Levine MD - 03/10/2017 2:42 PM CDT History Chief Complaint: Shortness of Breath and Rash HPI Lee Ann Herndon is a 76 year old female who presents with rash to the bilateral forearms. She notes onset of an itchy rash to the left arm shortly after gardening three weeks ago. Within a few days she had similarly itchy rash bilateral forearms, which she describes as itchy, nonpainful, with occasional pustules scabs. This has waxed and waned since then but increased today. During an intense moment of itching today, for less than 20 minutes, she felt slightly short of breath and was worried she was having a generalized allergic reaction. She has used Benadryl and topical hydrocortisone with minimal if any relief. She denies chest pain, and subsequent shortness of breath, fevers cough or any other concerns. Allergies: ??? Cephalosporins Hives keflex ??? Clindamycin Diarrhea ??? Erythromycin Nausea and Vomiting and Hives ??? Penicillins Hives and Itching ??? Sympathomimetics Swelling resperidol ??? Tetracyclines Hives and Itching Medications: sertraline (ZOLOFT) 25 MG tablet meloxicam (MOBIC) 7.5 MG tablet Past Medical History: ??? Arthritis of both knees ??? Colon polyp 06/2013 ??? Depression ??? Esophageal reflux ??? Hiatal hernia 2010 ??? Hypertension ??? Parathyroid abnormality (H) Past Surgical History: ??? ANKLE SURGERY Left 2008 - [facility] ??? APPENDECTOMY ??? COLONOSCOPY 05/30/13 polyps found - repeat in 3 years ??? COLONOSCOPY 07/03/2016 Dr. [facility] ??? COLONOSCOPY N/A 07/03/2016 Procedure: COMBINED COLONOSCOPY, [...] Vonnie Murphy MD; Location: [facility] OR Family History: Family History Problem Relation Age of Onset ??? Breast Cancer Mother ??? Breast Cancer Sister ??? Other Cancer Father Pancreatic ??? Gallbladder Disease Sister ??? Colon Cancer No family hx of Social History: Marital Status: [2] Review of Systems Respiratory: Positive as per above Skin: Positive as per above All other systems reviewed and negative Physical Exam First Vitals: BP: 151/81 Heart Rate: 92 Temp: 98.5 ??F (36.9 ??C) SpO2: 98 % Physical Exam Constitutional: Alert, attentive HENT: Nose normal. Posterior pharynx shows no mamadou Normal midline uvula No peritonsillar erythema or swelling No sublingual induration, swelling or tenderness No trismus Normal dentition without gingival swelling or caries Able to extend neck without discomfort Tolerating secretions and able to breathe supine with ease Eyes: EOM are normal. Pupils are equal, round, and reactive to light. CV: regular rate and rhythm; no murmurs, rubs or gallups Chest: Effort normal and breath sounds normal. GI: There is no tenderness. No distension. Normal bowel sounds MSK: Normal range of motion. Neurological: Alert, attentive Skin: Skin is warm and dry. Bilateral dorsal forearms are notable for a raised, pink, papular rash with excoriations and evidence of itching. It is not warm, tender, or apparently painful. There are no vesicular lesions or swelling Emergency Department Course ECG: Normal sinus rhythm, rate 84, no ST or T abnormality, no change from October 17, 2016 Results for orders placed or performed during the hospital encounter of 03/10/17 (from the past 24 hour(s)) CBC + differential Result Value Ref Range WBC 6.6 4.0 - 11.0 10e9/L RBC Count 4.40 3.8 - 5.2 10e12/L Hemoglobin 11.3 (L) 11.7 - 15.7 g/dL Hematocrit 38.2 35.0 - 47.0 % MCV 87 78 - 100 fl MCH 25.7 (L) 26.5 - 33.0 pg MCHC 29.6 (L) 31.5 - 36.5 g/dL RDW 17.2 (H) 10.0 - 15.0 % Platelet Count 155 150 - 450 10e9/L Diff Method Automated Method % Neutrophils 54.9 % % Lymphocytes 31.4 % % Monocytes 7.0 % % Eosinophils 5.8 % % Basophils 0.6 % % Immature Granulocytes 0.3 % Nucleated RBCs 0 0 /100 Absolute Neutrophil 3.6 1.6 - 8.3 10e9/L Absolute Lymphocytes 2.1 0.8 - 5.3 10e9/L Absolute Monocytes 0.5 0.0 - 1.3 10e9/L Absolute Eosinophils 0.4 0.0 - 0.7 10e9/L Absolute Basophils 0.0 0.0 - 0.2 10e9/L Abs Immature Granulocytes 0.0 0 - 0.4 10e9/L Absolute Nucleated RBC 0.0 Basic metabolic panel (BMP) Result Value Ref Range Sodium 141 133 - 144 mmol/L Potassium 4.8 3.4 - 5.3 mmol/L Chloride 107 94 - 109 mmol/L Carbon Dioxide 29 20 - 32 mmol/L Anion Gap 5 3 - 14 mmol/L Glucose 90 70 - 99 mg/dL Urea Nitrogen 18 7 - 30 mg/dL Creatinine 1.06 (H) 0.52 - 1.04 mg/dL GFR Estimate 51 (L) >60 mL/min/1.7m2 GFR Estimate If Black 61 >60 mL/min/1.7m2 Calcium 9.0 8.5 - 10.1 mg/dL EKG 12 lead Result Value Ref Range Interpretation ECG Click View Image link to view waveform and result XR Chest 2 Views Narrative CHEST TWO VIEWS 03/10/2017 3:35 PM HISTORY: 76-year-old patient with dyspnea. Impression IMPRESSION: Since February 03, 2014, heart size is mildly enlarged. There is a relatively large retrocardiac opacity, as well, best visualized on lateral radiograph. Previous CT exam May 2013 demonstrates a moderate to large hiatal hernia, likely cause of opacity. No pleural effusion, pneumothorax, or abnormal area of consolidation. MALI ANGUIANO MD Emergency Department Course: I saw and examined the patient shortly after arrival to the ED bed. I explained my medical impression and plan for care, and the patient consented to this plan. On re-evaluation, the patient is feeling better. I emphasized the importance of PCP follow-up and the strict return precautions provided. The patient demonstrated understanding of and comfortability with this plan. Impression & Plan Medical Decision Making: This is a very pleasant 76-year-old female presents for evaluation of bilateral forearm rash, waxingand waning for the last three weeks. During the afternoon today, was particularly if she she felt exasperated, emotional, and felt slightly short of breath 20 minutes or less. This is not consistent with acute pulmonary embolism, ACS or other more concerning cause. Nevertheless, screening labs performed to evaluate for potential underlying concerning cause such as incidental's significant anemia or acute pulmonary abnormality like pneumonia as, CHF, or pneumothorax. She does have a stable anemia andslightly increased creatinine from previous, but no significant abnormality is noted. She has remained without shortness of breath during her evaluation here today. Regarding the rash, this appears to be a dermatitis or localized allergic reaction given the persistent itching character and waxing and waning character. There is no increased warmth, pain, or tenderness to suggest infection. This is not consistent with erysipelas. This is not consistent with zoster. Given the persistence of symptoms and the lack of improvement with Benadryl, I will start a course of prednisone for five days. She also requests hydroxyzine for itching which is prescribed. I recommended primary care follow-up in 2-3 days and strict return precautions for worsening itching, recurrent shortness of breath, chest pain, or any other concerns. Diagnosis: ICD-10-CM 1. Rash R21 Disposition: Home in improved condition Leo Levine MD [facility] Emergency Department Discharge Medications: New Prescriptions HYDROXYZINE (ATARAX) 25 MG TABLET Take 1-2 tablets (25-50 mg) by mouth every 6 hours as needed for itching PREDNISONE (DELTASONE) 20 MG TABLET Take 2 tablets (40 mg) by mouth daily for 4 days Leo Levine 03/10/2017 [facility] EM[facility]Y DEPART[facility] Leo Levine MD 03/10/17 1613 documented in this encounter Plan of Treatment Not on filedocumented as of this encounter Procedures Procedure Name Priority Date/Time Associated Comments Diagnosis XR CHEST 2 VIEWS STAT 03/10/2017 3:35 PM Resul ts for this CDT procedure are i n the results section. EKG 12-LEAD, TRACING STAT 03/10/2017 2:55 PM R esults for this ONLY CDT procedure are i n the results section. CBC WITH PLATELETS & STAT 03/10/2017 2:51 PM R esults for this DIFFERENTIAL CDT procedure are i n the results section. BASIC METABOLIC PANEL STAT 03/10/2017 2:51 PM Results for this CDT procedure are i n the results section. documented in this encounter Results XR Chest 2 Views (03/10/2017 3:35 PM CDT) Anatomical Region Laterality Modality Chest Digital Radiography Specimen (Source) Anatomical Location Collection Method / Collectio n Time Received Time / Laterality Volume Impressions 03/10/2017 4:03 PM CDT IMPRESSION: Since February 03, 2014, heart size is mildly enlarged. There is a relatively large retrocardiac opacity, as well, best visualized on lateral radiograph. Previous CT exam Aug ust 2012 demonstrates a moderate to large hiatal hernia, likely cause of opacity. No pleural effusion, pneumothorax, or abnormal area of consolidation. MALI ANGUIANO MD Narrative 03/10/2017 4:03 PM CDT CHEST TWO VIEWS ??03/10/2017 3:35 PM HISTORY: 76-year-old patient with dyspne a. Procedure Note Mali Anguiano MD - 03/10/2017 CHEST TWO VIEWS 03/10/2017 3:35 PM HISTORY: 76-year-old patient with dyspne a. IMPRESSION: Since February 03, 2014, heart siz e is mildly enlarged. There is a relatively large retrocardiac opacity, as well, best visualized on lateral radiograph. Previous CT exam Aug ust 2012 demonstrates a moderate to large hiatal hernia, likely cause of opacity. No pleural effusion, pneumothorax, or abnormal area of consolidation. MALI ANGUIANO MD Leo Levine MD IMG DIAGNOSTIC IMAGING ORDER BERNARDO EKG 12 lead (03/10/2017 2:55 PM CDT) [facility] gist Method Time Signature Interpretation ECG Click View RADIOLOGY Image link RESULTS to view waveform and result Specimen (Source) Anatomical Collection Method Collection Time Re ceived Time Location / / Volume Laterality 03/10/2017 2:55 PM CDT Kamille Saldana MD ECG ORDERABLES Performing Organization Address City/State/ZIP Code Phon e Number RADIOLOGY RESULTS (ABNORMAL) Basic metabolic panel (BMP) (03/10/2017 2:51 PM CDT) Analysis Performed At [facility] logist Time Signature Sodium 141 133 - 144 [place] mmol/L [facility] Potassium 4.8 3.4 - 5.3 [facility] mmol/L [facility] Chloride 107 94 - 109 [place] mmol/L [facility] Carbon Dioxide 29 20 - 32 [facility] mmol/L [facility] Anion Gap 5 3 - 14 [facility] mmol/L [facility] Glucose 90 70 - 99 [place] mg/dL [facility] Urea Nitrogen 18 7 - 30 [facility] mg/dL [facility] Creatinine 1.06 (H) 0.52 - [place] 1.04 mg/dL [facility] GFR Estimate 51 (L) >60 [place] mL/min/1.7 [facility] m2 HOSPITAL Comment: Non GFR Calc GFR Estimate If Black 61 >60 mL/min/1.7m2 [facility] Comment: GFR Calc Calcium 9.0 8.5 - 10.1 mg/dL [facility] Specimen Anatomical Collection Method Collection Time Receive d Time (Source) Location / / Volume Laterality Blood specimen 03/10/2017 2:51 PM 017 3:33 (specimen) CDT PM CDT Leo Levine MD LAB - BLOOD ORDERABLES Performing Organization Address City/State/ZIP Code Phon e Number [facility] [address] [place], [place] [address] [phone] [facility] [address] [phone] (ABNORMAL) CBC + differential (03/10/2017 2:51 PM CDT) [facility] gist Method Time Signature WBC 6.6 4.0 - [place] 11.0 [facility] 10e9/L [facility] RBC Count 4.40 3.8 - 5.2 [place] 10e12/L [facility] Hemoglobin 11.3 (L) 11.7 - [place] 15.7 g/dL [facility] Hematocrit 38.2 35.0 - [place] 47.0 % [facility] MCV 87 78 - 100 [facility] MCH 25.7 (L) 26.5 - [place] 33.0 pg [facility] MCHC 29.6 (L) 31.5 - [place] 36.5 g/dL [facility] RDW 17.2 (H) 10.0 - [place] 15.0 % [facility] Platelet Count 155 150 - 450 [place] 10e9/L [facility] Diff Method Automated [facility] % Neutrophils 54.9 % [facility] % Lymphocytes 31.4 % [facility] % Monocytes 7.0 % [facility] % Eosinophils 5.8 % [facility] % Basophils 0.6 % [facility] % Immature 0.3 % [place] Granulocytes [facility] Nucleated RBCs 0 0 /100 [facility] Absolute 3.6 1.6 - 8.3 [place] Neutrophil 10e9/L [facility] Absolute 2.1 0.8 - 5.3 [place] Lymphocytes 10e9/L [facility] Absolute 0.5 0.0 - 1.3 [place] Monocytes 10e9/L [facility] Absolute 0.4 0.0 - 0.7 [place] Eosinophils 10e9/L [facility] Absolute 0.0 0.0 - 0.2 [place] Basophils 10e9/L [facility] Abs Immature 0.0 0 - 0.4 [place] Granulocytes [address] [place] [address] Absolute 0.0 [place] Nucleated RBC [facility] Specimen Anatomical Collection Method Collection Time Receive d Time (Source) Location / / Volume Laterality Blood specimen 03/10/2017 2:51 PM 017 3:33 (specimen) CDT PM CDT Leo Levine MD LAB - BLOOD ORDERABLES Performing Organization Address City/State/ZIP Code Phon e Number [place] [address] [place] [address] [facility] [address] [phone] documented in this encounter Visit Diagnoses Diagnosis Rash Rash and other nonspecific skin eruption documented in this encounter Administered Medications Inactive Administered Medications - up to 3 most recent administrations Medication Order MAR Action Action Date Dose Rate Site hydrOXYzine (ATARAX) tablet 25 mg Given 03/10/2017 4:18 PM CDT 25 mg 25 mg, Oral, ONCE, On 03/10/17 at 1617, For 1 dose predniSONE (DELTASONE) tablet 60 mg Given 03/10/2017 3:57 PM CDT 60 mg 60 mg, Oral, ONCE, On 03/10/17 at 1544, For 1 dose documented in this encounter Active and Recently Administered Medications Times are shown in CDT. Scheduled Medication Order 03/08/2017 03/09/2017 03/10/2017 diphenhydrAMINE (BENADRYL) capsule 50 mg 1544 (Canceled Entry - Provider: Orders Generic Provider - Comment: Automatically canceled at discontinue of medication order) 50 mg, Oral, ONCE, 03/10/17 at 1544, For 1 dose hydrOXYzine (ATARAX) tablet 25 mg (COMPLETED) 1618 (Given - Provider: Ciara Palmer RN) 25 mg, Oral, ONCE, On 03/10/17 at 1617, For 1 dose predniSONE (DELTASONE) tablet 60 mg (COMPLETED) 1557 (Given - Provider: Ciara Palmer RN) 60 mg, Oral, ONCE, 03/10/17 at 1544, For 1 dose documented in this encounter Additional Health Concerns Assessment Noted Time PHQ-9 Depression Total Score: 3 01/18/2017 7:33 AM CDT documented as of this encounter Care Teams Dental Ceramist Helper Relationship Specialty Start Date End Date Lio Stone MD PCP - General Family Practice 06/19/16 [address] [place], [place] [id number] Lio Stone MD PCP - Assigned PCP 07/09/16 12/03/18 [address] [place], [place] [phone] Lio Stone MD Assigned PCP 07/09/16 01/24/20 [address] [place], [place] [id number] documented as of this encounter
--- OUTSIDE RECORDS SUMMARY | 2022-07-19 22:57 | XMS_ITS | Encounter Summary ---
:1940 Author Organization [place] Address [address] [place] [id number] Care Team Providers Name Role Phone Lio Stone MD Primary Care Provider Reason for Visit Reason Comments Fever Headache Encounter Details Date Type Department Care Team Description 03/15/2020 Emergency [facility] Rogelio Hightower MD [facility] [address] [place], [place] [id number] Acute nonintractable [facility] Emergency Aron Matthews MD [facility] [address] [id number] headache, unspecified Dept headache type [address] [place] [address] Social History Tobacco Use Types Packs/Day Years [...] Sign Reading Time Taken Comments Blood Pressure 139/82 03/15/2020 6:30 PM CDT Pulse 95 03/15/2020 6:30 PM CDT Temperature 37.6 ??C (99.6 ??F) 03/15/2020 5:34 PM CDT Respiratory Rate 20 03/15/2020 5:34 PM CDT Oxygen Saturation 91% 03/15/2020 6:30 PM CDT Inhaled Oxygen Concentration - - Weight - - Height - - Body Mass Index - - documented in this encounter Discharge Instructions Discharge InstructionsTiffany Hightower MD - 03/15/2020 9:46 PM CDT Discharge Instructions Headache You were seen today for a headache. Headaches may be caused by many different things such as muscle tension, sinus inflammation, anxiety and stress, having too little sleep, too much alcohol, some medical conditions or injury. You may have a migraine, which is caused by changes in the blood vessels inyour head. At this time your doctor does not find that your headache is a sign of anything dangerousor life-threatening. However, sometimes the signs of serious illness do not show up right away. If you have new or worse symptoms, you may need to be seen again in the emergency department or by your primary doctor. Return to the Emergency Department if: You get a fever of 101 F or higher. Your headache gets much worse. You get a stiff neck with your headache. You get a new headache that is different or worse than headaches you have had before. You are vomiting and can???t keep food or water down. You have blurry or double vision or other problems with your eyes. You have a new weakness on one side of your body. You have difficulty with balance which is new. You or your family thinks you are confused. You have a seizure or convulsion. What can I do to help myself? Pain medications - You may take a pain medication such as Tylenol?? (acetaminophen), Advil??, Nuprin?? (ibuprofen) or Aleve?? (naproxen). If you have been given a narcotic such as Vicodin?? (hydrocodone with acetaminophen), Percocet?? (oxycodone with acetaminophen), codeine, or a muscle relaxant such as Flexeril?? (cyclobenzaprine) or Soma?? (carisoprodol), do not drive for four hours after you have taken it. If the narcotic contains Tylenol?? (acetaminophen), do not take Tylenol?? with it. All narcotics will cause constipation, so eat a high fiber diet. Take a pain reliever as soon as you notice symptoms. Starting medications as soon as you start to have symptoms may lessen the amount of pain you have. Relaxing in a quiet, dark room may help. Get enough sleep and eat meals regularly. Schedule an appointment with your primary physician as instructed, or at least within 1 week. You may need to watch for certain foods or other things which may trigger your headaches. Keeping a journal of your headaches and possible triggers may help you and your primary doctor to identify things which you should avoid which may be causing your headaches. If you were given a prescription for medicine here today, be sure to read all of the information (including the package insert) that comes with your prescription. This will include important information about the medicine, its side effects, and any warnings that you need to know about. The pharmacist who fills the prescription can provide more information and answer questions you may have about the medicine. If you have questions or concerns that the pharmacist cannot address, please call or return to the Emergency Department. Opioid Medication Information Pain medications are among the most commonly prescribed medicines, so we are including this information for all our patients. If you did not receive pain medication or get a prescription for pain medicine, you can ignore it. You may have been given a prescription for an opioid (narcotic) pain medicine and/or have received apain medicine while here in the Emergency Department. These medicines can make you drowsy or impaired. You must not drive, operate dangerous equipment, or engage in any other dangerous activities whiletaking these medications. If you drive while taking these medications, you could be arrested for DUI, or driving under the influence. Do not drink any alcohol while you are taking these medications. Opioid pain medications can cause addiction. If you have a history of chemical dependency of any type, you are at a higher risk of becoming addicted to pain medications. Only take these prescribed medications to treat your pain when all other options have been tried. Take it for as short a time and asfew doses as possible. Store your pain pills in a secure place, as they are frequently stolen and provide a dangerous opportunity for children or visitors in your house to start abusing these powerful medications. We will not replace any lost or stolen medicine. As soon as your pain is better, you should flush all your remaining medication. Many prescription pain medications contain Tylenol?? (acetaminophen), including Vicodin??, Tylenol #3??, [place]??, Lortab??, and Percocet??. You should not take any extra pills of Tylenol?? if you are using these prescription medications or you can get very sick. Do not ever take more than 3000 mg of acetaminophen in any 24 hour period. All opioids tend to cause constipation. Drink plenty of water and eat foods that have a lot of fiber, such as fruits, vegetables, prune juice, apple juice and high fiber cereal. Take a laxative if you don???t move your bowels at least every other day. Miralax??, Milk of Magnesia, Colace??, or Senna?? can be used to keep you regular. Remember that you can always come back to the Emergency Department if you are not able to see your regular doctor in the amount of time listed above, if you get any new symptoms, or if there is anything that worries you. documented in this encounter Medications at Time of Discharge Medication Sig Dispensed Refills Start Date End Date hydrOXYzine (ATARAX) 25 MG Take 1-2 tablets 60 tablet 1 07/2017 tablet (25-50 mg) by mouth every 6 [...] documented as of this encounter ED Notes Anupama Sotelo RN - 03/15/2020 6:06 PM CDT Pt reports worse headache with nausea past 24 hrs, a/o x 4, reports I really dont feel well I neverhave felt this way. No recent fall no Blood thinners, pt reports low grade fevers, no visual disturbance fatigue. Estefania Hansen RN - 03/15/2020 5:34 PM CDT Arrives with 2 days of fever and headache. Alert and oriented, ABCs intact. Tiffany Hightower MD - 03/15/2020 5:31 PM CDT History Chief Complaint: Fever and Headache The history is provided by the patient. Lee Ann Herndon is a 79 year old female with a history of hypertension, hyperparathyroidism, GERD, obesity, anxiety, depression, and osteoarthritis who presents with fever and headache. Patient saysthat last evening she began to note some headache which is gradually worsened since then. She had a temperature of 101 last night. She continues to have headache. She denies any other specific symptoms. She is not aware of feeling short of breath, no cough, no sore throat. She has not been exposed to anyone with COVID infection or in a risky situation. She has felt nauseated but has not vomited. No diarrhea. ?? Allergies: Cephalosporins Clindamycin Erythromycin Penicillins Sympathomimetics Tetracyclines ?? Medications: The patient is not currently on any daily prescription medications. ?? 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 Past Surgical History: Left ankle surgery Appendectomy Dilation and curettage Hernia repair Bilateral knee replacement Parathyroidectomy ?? Family History: Mother - breast cancer Sister(s) - breast cancer, gallbladder disease Father - pancreatic cancer ?? Social History: The patient was unaccompanied to the ED. Smoking Status: never Smokeless Tobacco: never Alcohol Use: no Drug Use: no Marital Status: [2] Review of Systems Constitutional: Positive for fever. HENT: Negative for sore throat. Respiratory: Negative for cough and shortness of breath. Gastrointestinal: Negative for diarrhea, nausea and vomiting. Neurological: Positive for headaches. Physical Exam Patient Vitals for the past 24 hrs: BP Temp Temp src Pulse Resp SpO2 06/15/20 1830 139/82 -- -- 95 -- 91 % 03/15/20 1815 (!) 144/86 -- -- 107 -- 91 % 03/15/20 1734 (!) 153/94 99.6 ??F (37.6 ??C) Oral 102 20 94 % Physical Exam Constitutional: Comments: Pleasant and cooperative During my exam sats would sometimes drop to 89 to 90% which appear to be a good waveform. HENT: Right Ear: Tympanic membrane normal. Left Ear: Tympanic membrane normal. Mouth/Throat: Pharynx: No posterior oropharyngeal erythema. Eyes: Conjunctiva/sclera: Conjunctivae normal. Neck: Musculoskeletal: Neck supple. Comments: No meningismus Cardiovascular: Rate and Rhythm: Normal rate and regular rhythm. Heart sounds: Normal heart sounds. Pulmonary: Effort: Pulmonary effort is normal. Breath sounds: Normal breath sounds. Abdominal: General: Bowel sounds are normal. There is no distension. Palpations: Abdomen is soft. Tenderness: There is no abdominal tenderness. There is no guarding or rebound. Musculoskeletal: Normal range of motion. Skin: General: Skin is warm and dry. Neurological: Mental Status: She is alert. Emergency Department Course Imaging: Radiology findings were communicated with the patient who voiced understanding of the findings. XR chest: IMPRESSION: No significant change. Mild cardiomegaly. Tortuous thoracic aorta. Likely a hiatal hernia is present that is unchanged. Lungs appear hyperinflated but otherwise clear. Report per radiology CT head w/o contrast: IMPRESSION: 1. ??No CT evidence for acute intracranial process. 2. ??Brain atrophy and presumed chronic microvascular ischemic changes as above. Report per radiology CT chest PE w contrast: IMPRESSION: 1. No pulmonary embolus, aortic aneurysm or dissection. 2. Moderate fibroatelectasis without definite infiltrate. Trace nonspecific pleural fluid. Air trapping often associated with small vessel or small airways disease. Report per radiology Laboratory: Laboratory findings were communicated with the patient who voiced understanding of the findings. Lactic acid whole blood: 1.0 BMP: glucose 121 (H) o/w WNL (Creatinine 0.77) CBC: PLT 128 (L) o/w WNL (WBC 10.0, HGB 13.9) Blood Culture x2: Pending Glucose by Meter (Collected 1756): 121 (H) Glucose by Meter (Collected 1802): 111 (H) Interventions: 1759 NS 1L IV Bolus 1758 Zofran 4 mg IV Emergency Department Course: Past medical records, nursing notes, and vitals reviewed. 1904 I performed an exam of the patient as documented above. IV was inserted and blood was drawn for laboratory testing, results above. The patient was sent for a chest XR, chest CT, and head CT while in the emergency department, results above. 2144 I rechecked the patient and discussed the results of her workup thus far. Findings and plan explained to the Patient. Patient discharged home with instructions regarding supportive care, medications, and reasons to return. The importance of close follow-up was reviewed. I personally reviewed the laboratory and imaging results with the Patient and answered all related questions prior to discharge. Impression & Plan Covid-19 Lee Ann Herndon was evaluated during a global COVID-19 pandemic, which necessitated considerationthat the patient might be at risk for infection with the SARS-CoV-2 virus that causes COVID-19. Applicable protocols for evaluation were followed during the patient's care. COVID-19 was considered as part of the patient's evaluation. The plan for testing is: a test was obtained during this visit. Medical Decision Making: Lee Ann Herndon is a 79 year old female who presents to the emergency department complaining of an unusually severe headache and a fever. Given the current COVID pandemic I considered that as a potential etiology though the patient's symptoms are not typical. I considered other potential etiologies including infectious meningitis. She does not have altered mental status, meningeal findings, or significant leukocytosis. I think that is unlikely. While here she is significantly improved. She says she realized that she thinks she was short of fluid and after receiving fluid here her headache has largely abated. I think it is reasonable to discharge the patient home for continued close monitoring. I will have her increase fluid, return if worse or new symptoms, follow-up in clinic in 2 days unlesssymptoms have resolved. Diagnosis: ICD-10-CM 1. Acute nonintractable headache, unspecified headache type R51 Disposition: Discharged to home. Scribe Disclosure: I, Alanis Loera, am serving as a scribe at 7:19 PM on 03/15/2020 to document services personally performed by Tiffany Hightower MD based on my observations and the provider's statements to me. 03/15/2020 [facility] EMERGENCY DEPARTMENT Tiffany Hightower MD 03/15/20 7608 documented in this encounter Miscellaneous Notes Result Encounter Note - Leah Thurman RN - 03/15/2020 9:52 PM CDT Coronavirus (COVID-19) Notification Your result for COVID-19 is Negative Letter sent that will serve as a formal notice for your employer documented in this encounter Plan of Treatment Not on filedocumented as of this encounter Procedures Procedure Name Priority Date/Time Associated Diagnosis Comme nts COVID-19 VIRUS STAT 03/15/2020 9:50 Acute nonintractable Re sults for this (CORONAVIRUS) BY PCR PM CDT headache, unspecifie d procedure are in headache type the results section. CT CHEST PULMONARY STAT 03/15/2020 8:55 Result s for this EMBOLISM W CONTRAST PM CDT procedur e are in the results section. CT HEAD W/O CONTRAST STAT 03/15/2020 8:43 Resu lts for this PM CDT procedure are i n the results section. XR CHEST PORT 1 VIEW STAT 03/15/2020 6:54 Resu lts for this PM CDT procedure are i n the results section. LACTIC ACID WHOLE STAT 03/15/2020 6:44 Results for this BLOOD PM CDT procedure are i n the results section. BLOOD CULTURE STAT 03/15/2020 6:44 Acute nonintractable Res ults for this PM CDT headache, unspecified proced ure are in headache type the results section. BLOOD CULTURE STAT 03/15/2020 6:44 Acute nonintractable Res ults for this PM CDT headache, unspecified proced ure are in headache type the results section. GLUCOSE BY METER Routine 03/15/2020 6:03 Results for this PM CDT procedure are i n the results section. CBC WITH PLATELETS & STAT 03/15/2020 5:57 Resu lts for this DIFFERENTIAL PM CDT procedure are i n the results section. BASIC METABOLIC STAT 03/15/2020 5:57 Results f or this PANEL PM CDT procedure are i n the results section. documented in this encounter Results Symptomatic COVID-19 Virus (Coronavirus) by PCR (03/15/2020 9:50 PM CDT) [facility] Method Time Signature COVID-19 Nasopharyngeal 03/15/2020 [place] Virus PCR to 9:50 PM CDT [facility] Source COVID-19 Not Detected 03/16/2020 [facility] Virus PCR to 6:25 PM CDT [facility] - GENOMICS Result CENTER LABORATORY Comment: Collection of multiple specimens from th e same patient may be necessary to detect the virus. The possibility of a f alse negative should be considered if the patient's recent exposure or clinica l presentation suggests 2019 nCOV infection and diagnostic tests for other causes of illness are negative. Repeat testing may be considered in this setting. Viral RNA was extracted via a validated method and subsequently underwent single step reverse transcriptase-real t tamara polymerase chain reaction using primers to the CDC specified N1,N2 gene targets of CoV2 and human [employer] as an internal control. A negative result does not rule out the presence of real-time PCR inhibitors in the specimen or COVID-19 RNA in esha ntrations below the limit of detection of the assay. The possibility of a fals e negative should be considered if the patients recent exposure or clinical pr esentation suggests COVID-19. Additional testing or repeat testing req uires consultation with the laboratory. Nasopharyngeal specimen is the preferred choice for swab-based SARS CoV2 testing. When collection of a nasopharyn geal swab is not possible the following are acceptable alternatives: an oropharyngeal (OP) specimen collected by a healthcare professional, or a nasal mid-turbinate (NMT) swab collected by a healthcare professional or by onsite self-collection (using a flocked tapered swab), or an anterior nares specimen collected by a healthcare profe ssional or by onsite self-collection (using a round foam swab). (Centers for Disease Control) Testing performed by [facility] [employer], Room 1-210, [address] [place] [address]. T his test was developed and its performance characteristics determined b y the [facility]. It has not been cleared or appr jo by the FDA. The laboratory is regulated under the Cl inical Laboratory Improvement Amendments of 1988 (CLIA-88) as qualifie d to perform high-complexity testing. This test is used for clinical purposes. It should not be regarded as investigational or for research. Specimen (Source) Anatomical Collection Method Collection Time Re ceived Time Location / / Volume Laterality Specimen from 03/15/2020 9:50 03/15/2020 nasopharyngeal PM CDT 10:23 PM CDT structure (specimen) Tiffany Hightower MD LAB - MICRO GENERAL ORDERABL ES Performing Organization Address City/State/ZIP Code Phon e Number [facility] [address] [place] [id number] [facility] Room: 1-210 LABORATORY [place] [address] [phone] CT Chest Pulmonary Embolism w Contrast (03/15/2020 8:55 PM CDT) Anatomical Region Laterality Modality Chest, SUBRAD CT BODY, UMP CT CHEST Comp uted Tomography Specimen (Source) Anatomical Collection Method Collection Time Re ceived Time Location / / Volume Laterality 03/15/2020 8:28 PM CDT Impressions 03/15/2020 9:29 PM CDT IMPRESSION: 1. ??No pulmonary embolus, aortic aneury sm or dissection. 2. ??Moderate fibroatelectasis without d efinite infiltrate. Trace nonspecific pleural fluid. Air trapping often associated with small vessel or small airways disease. Narrative 03/15/2020 9:29 PM CDT EXAM: CT CHEST PULMONARY EMBOLISM W CONTRAST LOCATION: [facility] DATE/TIME: 03/15/2020 8:28 PM INDICATION: Low O2 saturation, fever, sh ortness of breath, rash COMPARISON: 05/27/2013 TECHNIQUE: CT chest pulmonary angiogram during arterial phase injection of IV contrast. Multiplanar reformats and MIP reconstructions were performed. Dose reduction techniques were used. CONTRAST: 89 mL Isovue-370 FINDINGS: ANGIOGRAM CHEST: Pulmonary arteries are normal caliber and negative for pulmonary emboli. Thoracic aorta is negative for dissection. No CT evidence of right heart strain. LUNGS AND PLEURA: Moderate fibroatelecta sis with no focal infiltrate. Air trapping often associated with small vessel or small airways disease. Trace pleural fluid bilaterally. MEDIASTINUM/AXILLAE: Stable moderate to large hiatal hernia. No adenopathy. UPPER ABDOMEN: Hepatic and renal cysts s table requiring no further evaluation. MUSCULOSKELETAL: Degenerative disease. K yphosis. Procedure Note Shayan Basilio MD - 03/15/2020F ormatting of this note might be different from the original. EXAM: CT CHEST PULMONARY EMBOLISM W CONT RAST LOCATION: [facility] DATE/TIME: 03/15/2020 8:28 PM INDICATION: Low O2 saturation, fever, sh ortness of breath, rash COMPARISON: 05/27/2013 TECHNIQUE: CT chest pulmonary angiogram during arterial phase injection of IV contrast. Multiplanar reformats and MIP reconstructions were performed. Dose reduction techniques were used. CONTRAST: 89 mL Isovue-370 FINDINGS: ANGIOGRAM CHEST: Pulmonary arteries are normal caliber and negative for pulmonary emboli. Thoracic aorta is negative for dissection. No CT evidence of right heart strain. LUNGS AND PLEURA: Moderate fibroatelecta sis with no focal infiltrate. Air trapping often associated with small vessel or small airways disease. Trace pleural fluid bilaterally. MEDIASTINUM/AXILLAE: Stable moderate to large hiatal hernia. No adenopathy. UPPER ABDOMEN: Hepatic and renal cysts s table requiring no further evaluation. MUSCULOSKELETAL: Degenerative disease. K yphosis. IMPRESSION: 1. No pulmonary embolus, aortic aneurysm or dissection. 2. Moderate fibroatelectasis without def inite infiltrate. Trace nonspecific pleural fluid. Air trapping often associated with small vessel or small airways disease. Tiffany Hightower MD G CT ORDERABLES CT Head w/o Contrast (03/15/2020 8:43 PM CDT) Anatomical Region Laterality Modality Head, SUBRAD CT NEURO, SUBRAD CT NEURO, UMP CT NEURO, Computed Tomography RAD CT Specimen (Source) Anatomical Collection Method Collection Time Re ceived Time Location / / Volume Laterality 03/15/2020 8:28 PM CDT Impressions 03/15/2020 9:24 PM CDT IMPRESSION: 1. ??No CT evidence for acute intracrani al process. 2. ??Brain atrophy and presumed chronic microvascular ischemic changes as above. Narrative 03/15/2020 9:24 PM CDT EXAM: CT HEAD W/O CONTRAST LOCATION: [facility] DATE/TIME: 03/15/2020 8:28 PM INDICATION: Headache COMPARISON: CT head 12/21/2006 TECHNIQUE: Routine without IV contrast. Multiplanar reformats. Dose reduction techniques were used. FINDINGS: INTRACRANIAL CONTENTS: No intracranial h emorrhage, extraaxial collection, or mass effect. ??No CT evidence of acute infarct. Mild to moderate presumed chronic small vessel ischemic changes. This has mildly progressed compared to the 2017 exam. Mild generalized volume loss. No hydrocephalu s. VISUALIZED ORBITS/SINUSES/MASTOIDS: No i ntraorbital abnormality. No paranasal sinus mucosal disease. No middle ear or mastoid effusion. BONES/SOFT TISSUES: No acute abnormality . Procedure Note Gian Bragg MD - 03/15/2020F ormatting of this note might be different from the original. EXAM: CT HEAD W/O CONTRAST LOCATION: [facility] DATE/TIME: 03/15/2020 8:28 PM INDICATION: Headache COMPARISON: CT head 12/21/2006 TECHNIQUE: Routine without IV contrast. Multiplanar reformats. Dose reduction techniques were used. FINDINGS: INTRACRANIAL CONTENTS: No intracranial h emorrhage, extraaxial collection, or mass effect. No CT evidence of acute infarct. Mild to moderate presumed chronic small vessel ischemic changes. This has mildly progressed compared to the 2017 exam. Mild generalized volume loss. No hydrocephalu s. VISUALIZED ORBITS/SINUSES/MASTOIDS: No i ntraorbital abnormality. No paranasal sinus mucosal disease. No middle ear or mastoid effusion. BONES/SOFT TISSUES: No acute abnormality . IMPRESSION: 1. No CT evidence for acute intracranial process. 2. Brain atrophy and presumed chronic mi crovascular ischemic changes as above. Tiffany Hightower MD IMG CT ORDERABLES XR Chest Port 1 View (03/15/2020 6:54 PM CDT) Anatomical Region Laterality Modality Chest Digital Radiography Specimen (Source) Anatomical Collection Method Collection Time Re ceived Time Location / / Volume Laterality 03/15/2020 6:36 PM CDT Impressions 03/15/2020 6:59 PM CDT IMPRESSION: No significant change. Mild cardiomegaly. Tortuous thoracic aorta. Likely a hiatal hernia is present that is uncha nged. Lungs appear hyperinflated but otherwise clear. Narrative 03/15/2020 6:59 PM CDT EXAM: XR CHEST PORT 1 VW LOCATION: [facility] DATE/TIME: 03/15/2020 6:36 PM INDICATION: Fever COMPARISON: 03/10/2017 Procedure Note Eloy Houston MD - 03/15/2020Formatt ing of this note might be different from the original. EXAM: XR CHEST PORT 1 VW LOCATION: [facility] DATE/TIME: 03/15/2020 6:36 PM INDICATION: Fever COMPARISON: 03/10/2017 IMPRESSION: No significant change. Mild cardiomegaly. Tortuous thoracic aorta. Likely a hiatal hernia is present that is unchanged. Lungs appear hyperinflated but otherwise clear. Tiffany Hightower MD IMG DIAGNOSTIC IMAGING ORDER BERNARDO Lactic acid whole blood (03/15/2020 6:44 PM CDT) P athologist Signature Lactic Acid 1.0 0.7 - 2.0 03/15/2020 [place] mmol/L 7:03 PM [facility] Specimen Anatomical Collection Method Collection Time Receive d Time (Source) Location / / Volume Laterality Blood specimen 03/15/2020 6:44 PM 020 7:01 (specimen) CDT PM CDT Tiffany Hightower MD LAB - BLOOD ORDERABLES Performing Organization Address City/State/ZIP Code Phon e Number [facility] [address] [address] [facility] [address] [phone] Blood culture (03/15/2020 6:44 PM CDT) Patholo gist Method Time Signature Specimen Blood INFECTIOUS Description DISEASES DIAGNOSTIC LABORATORY Special Left Arm 03/15/2020 INFECTIOUS Requests 8:08 PM CDT DISEASES DIAGNOSTIC LABORATORY Culture Micro No growth 03/21/2020 INFECTIOUS 7:06 AM CDT DISEASES DIAGNOSTIC LABORATORY Specimen Anatomical Collection Method Collection Time Receive d Time (Source) Location / / Volume Laterality Blood specimen 03/15/2020 6:44 PM 020 7:06 (specimen) CDT PM CDT Tiffany Hightower MD LAB - MICRO GENERAL ORDERABL ES Performing Organization Address City/State/ZIP Code Phon e Number INFECTIOUS DISEASES [address] [place] [address] DIAGNOSTIC LABORATORY, [facility] INFECTIOUS DISEASES [address] [place] [address], [place] DIAGNOSTIC LABORATORY Blood culture (03/15/2020 6:44 PM CDT) Patholo gist Method Time Signature Specimen Blood INFECTIOUS Description DISEASES DIAGNOSTIC LABORATORY Special Right Arm 03/15/2020 INFECTIOUS Requests 8:08 PM CDT DISEASES DIAGNOSTIC LABORATORY Culture Micro No growth 03/21/2020 INFECTIOUS 7:06 AM CDT DISEASES DIAGNOSTIC LABORATORY Specimen Anatomical Collection Method Collection Time Receive d Time (Source) Location / / Volume Laterality Blood specimen 03/15/2020 6:44 PM 020 7:05 (specimen) CDT PM CDT Tiffany Hightower MD LAB - MICRO GENERAL ORDERABL ES Performing Organization Address City/[facility]/ZIP Code Phon e Number INFECTIOUS DISEASES [address] [place] [address] DIAGNOSTIC LABORATORY, [facility] INFECTIOUS DISEASES [address] [place] [address], [place] DIAGNOSTIC LABORATORY (ABNORMAL) Glucose by meter (03/15/2020 6:03 PM CDT) P athologist Signature Glucose 111 (H) 70 - 99 03/15/2020 [facility] mg/dL 6:09 PM CDT TEST, GLUCOSE Specimen Anatomical Collection Method Collection Time Receive d Time (Source) Location / / Volume Laterality 03/15/2020 6:03 PM 0 6:09 CDT PM CDT Tiffany Hightower MD LAB - BEAKER POCT Performing Organization Address City/State/ZIP Code Phon e Number FV POINT OF CARE TEST, GLUCOSE POINT OF CARE TEST, GLUCOSE (ABNORMAL) Basic metabolic panel (03/15/2020 5:57 PM CDT) P athologist Signature Sodium 137 133 - 144 03/15/2020 [facility] mmol/L 6:44 PM [facility] Potassium 3.8 3.4 - 5.3 03/15/2020 [facility] mmol/L 6:44 PM [facility] Chloride 105 94 - 109 03/15/2020 [facility] mmol/L 6:44 PM [facility] Carbon Dioxide 23 20 - 32 03/15/2020 [facility] mmol/L 6:49 PM [facility] Anion Gap 9 3 - 14 03/15/2020 [facility] mmol/L 6:49 PM [facility] Glucose 121 (H) 70 - 99 03/15/2020 [place] mg/dL 6:49 PM [facility] Urea Nitrogen 10 7 - 30 03/15/2020 [place] mg/dL 6:49 PM [facility] Creatinine 0.77 0.52 - 03/15/2020 [place] 1.04 mg/dL 6:49 PM [facility] GFR Estimate 74 >60 03/15/2020 [place] mL/min/{1. 6:49 PM [facility] 73_m2} HOSPITAL Comment: Non GFR Calc Starting 09/17/2018, serum creatinine ba sed estimated GFR (eGFR) will be calculated using the Chronic Kidney Dise [facility] Epidemiology Collaboration (CKD-EPI) equation. GFR Estimate If 85 >60 mL/min/{1.73_m2} 03/15/2020 6: 49 PM [facility] Comment: GFR Calc Starting 09/17/2018, serum creatinine ba sed estimated GFR (eGFR) will be calculated using the Chronic Kidney Dise [facility] Epidemiology Collaboration (CKD-EPI) equation. Calcium 8.9 8.5 - 10.1 mg/dL 03/15/2020 6:49 PM [facility] Specimen Anatomical Collection Method Collection Time Receive d Time (Source) Location / / Volume Laterality Blood specimen 03/15/2020 5:57 PM 020 6:31 (specimen) CDT PM CDT Aron Matthews MD LAB - BLOOD ORDERABLES Performing Organization Address City/State/ZIP Code Phon e Number [place] [address] [address] [address] [facility] [address] [phone] (ABNORMAL) CBC with platelets differential (03/15/2020 5:57 PM CDT) [facility] Method Time Signature WBC 10.0 4.0 - 03/15/2020 [facility] 11.0 6:47 PM [facility] 10e9/L [facility] RBC Count 4.58 3.8 - 5.2 03/15/2020 [place] 10e12/L 6:[address] [facility] Hemoglobin 13.9 11.7 - 03/15/2020 [facility] 15.7 g/dL 6:47 PM [facility] Hematocrit 43.4 35.0 - 03/15/2020 [facility] 47.0 % 6:47 PM [facility] MCV 95 78 - 100 03/15/2020 [facility] fl 6:47 PM [facility] MCH 30.3 26.5 - 03/15/2020 [facility] 33.0 pg 6:47 PM [facility] MCHC 32.0 31.5 - 03/15/2020 [facility] 36.5 g/dL 6:47 PM [facility] RDW 13.6 10.0 - 03/15/2020 [facility] 15.0 % 6:47 PM [facility] Platelet Count 128 (L) 150 - 450 03/15/2020 [facility] 10e9/L 6:47 PM [facility] Diff Method Automated 03/15/2020 [facility] Method 6:47 PM [facility] % Neutrophils 87.3 % 03/15/2020 [facility] 6:47 PM [facility] % Lymphocytes 8.3 % 03/15/2020 [facility] 6:47 PM [facility] % Monocytes 3.9 % 03/15/2020 [facility] 6:47 PM [facility] % Eosinophils 0.0 % 03/15/2020 [facility] 6:47 PM [facility] % Basophils 0.1 % 03/15/2020 [facility] 6:47 PM [facility] % Immature 0.4 % 03/15/2020 [facility] Granulocytes 6:47 PM [facility] Nucleated RBCs 0 0 /100 03/15/2020 [facility] 6:47 PM [facility] Absolute 8.8 (H) 1.6 - 8.3 03/15/2020 [facility] Neutrophil 10e9/L 6:47 PM [facility] Absolute 0.8 0.8 - 5.3 03/15/2020 [facility] Lymphocytes 10e9/L 6:47 PM [facility] Absolute 0.4 0.0 - 1.3 03/15/2020 [facility] Monocytes 10e9/L 6:47 PM [facility] Absolute 0.0 0.0 - 0.7 03/15/2020 [facility] Eosinophils 10e9/L 6:47 PM [facility] Absolute 0.0 0.0 - 0.2 03/15/2020 [place] Basophils 10e9/L 6:47 PM [facility] Abs Immature 0.0 0 - 0.4 03/15/2020 [place] Granulocytes 10e9/L 6:47 PM [facility] Absolute 0.0 03/15/2020 [place] Nucleated RBC 6:47 PM [facility] Specimen Anatomical Collection Method Collection Time Receive d Time (Source) Location / / Volume Laterality Blood specimen 03/15/2020 5:57 PM 020 6:31 (specimen) CDT PM CDT Aron Matthews MD LAB - BLOOD ORDERABLES Performing Organization Address City/State/ZIP Code Phon e Number [address] [address] [address] [address] [place], [place] [address] [phone] [facility] [address] [place], [place] [address] [place] [address] documented in this encounter Visit Diagnoses Diagnosis Acute nonintractable headache, unspecifi ed headache type documented in this encounter Administered Medications Inactive Administered Medications - up to 3 most recent administrations Medication Order MAR Action Action Date Dose Rate Site 0.9% sodium chloride BOLUS New Bag 03/15/2020 5:59 PM CDT 1,000 mLs 1000 mL/hr Intravenous, 1,000 mL, ONCE, at 1,000 mL/hr, Administer over 1 Hours, On Sun03/15/20 at 1758, For 1 dose 0.9% sodium chloride BOLUS New Bag 03/15/2020 8:47 PM CDT 100 mLs Intravenous, 100 mL, ONCE, On Sun03/15/20 at 2030, For 1 dose iopamidol (ISOVUE-370) solution 500 mL Given 03/15/2020 8:46 PM CDT 89 mLs 500 mL, Intravenous, ONCE, On Sun03/15/20 at 2030, For 1 dose ondansetron (ZOFRAN) injection 4 mg Given 03/15/2020 5:59 PM CDT 4 mg 4 mg, Intravenous, ONCE, Administer over 2-5 Minutes, On Sun03/15/20 at 1758, For 1 dose, Irritant. For ordered IV doses 0.1-4 mg, give IV Push undiluted over 2-5 minutes. sodium chloride (PF) 0.9% PF flush 3 mL 3 mL, Intracatheter, EVERY 1 MIN PRN, li ne flush, for peripheral IV flush post IV meds, Starting on Sun03/15/20 at 1829 sodium chloride (PF) 0.9% PF flush 3 mL 3 mL, Intracatheter, EVERY 8 HOURS, Firs t dose on Sun03/15/20 at 1833, And Q1H PRN, to lock peripheral IV dormant line. documented in this encounter Active and Recently Administered Medications Times are shown in CDT. Scheduled Medication Order 03/13/2020 03/14/2020 03/15/2020 0.9% sodium chloride BOLUS (COMPLETED) 1758 (New Bag - Provider: Anupama Sotelo RN)2145 (Stopped - Provider: Esther Bui RN) Intravenous, 1,000 mL, ONCE, at 1,000 mL /hr, Administer over 1 Hours, On Sun03/15/20 at 1758, For 1 dose 0.9% sodium chloride BOLUS (COMPLETED) 2046 (New Bag - Provider: Korin Leblanc)2145 (Stopped - Provider: Esther Bui RN) Intravenous, 100 mL, ONCE, On Sun03/15/20 at 2030, For 1 dose iopamidol (ISOVUE-370) solution 500 mL (COMPLETED) 2045 (Given - Provider: Korin Leblanc) 500 mL, Intravenous, ONCE, Sun03/15/20 at 2030, For 1 dose ondansetron (ZOFRAN) injection 4 mg (COMPLETED) 1758 (Given - Provider: Anupama Sotelo RN) 4 mg, Intravenous, ONCE, Administer over 2-5 Minutes, Sun03/15/20 at 1758, For 1 dose, Irritant. For ordered IV doses 0.1-4 mg, give IV Push undiluted over 2-5 minutes. sodium chloride (PF) 0.9% PF flush 3 mL 1833 (Canceled Entry - Provider: Kei Generic Provider - Comment: Automatically canceled at discontinue of medication order) 3 mL, Intracatheter, EVERY 8 HOURS, Firs t dose on Sun03/15/20 at 1833, And Q1H PRN, to lock peripheral IV dormant line. PRN Medication Order 03/13/2020 03/14/2020 03/15/2020 sodium chloride (PF) 0.9% PF flush 3 mL 3 mL, Intracatheter, EVERY 1 MIN PRN, michael ne flush, for peripheral IV flush post IV meds, Starting 03/15/20 at 1829 documented in this encounter Additional Health Concerns Infection Onset Date Last Indicated Resolved Time Rule Out COVID-19 03/15/2020 03/15/2020 03/16/2020 6:2 6 PM CDT Assessment Noted Time PHQ-9 Depression Total Score: 3 01/18/2017 7:33 AM CDT documented as of this encounter Care Teams Electric Lineman Relationship Specialty Start Date End Date Lio Stone MD PCP - General Family Practice 06/19/[id number] [place] [id number] documented as of this encounter
--- OUTSIDE RECORDS SUMMARY | 2022-07-19 22:57 | XMS_ITS | Encounter Summary ---
:1940 Author Organization [place] Address On license of [facility] [facility] [place] [address] Care Team Providers Name Role Phone Lio Stone MD Primary Care Provider [phone] Lio Stone MD Unavailable [phone] Lio Stone MD Unavailable [phone] Reason for Visit Reason Comments Pre-Op Exam colon Encounter Details Date Type Department Care Team Description 10/17/2016 Office Visit [facility] Lio Stone Preop general physical Clinic Adri Glass MD exam (Primary Dx) [address] [place] [phone] Social History Tobacco Use Types Packs/Day Years Used Date Smoking Tobacco: Never Smokeless Tobacco: Never Alcohol Use Standard Drinks/Week Comments No 0 (1 standard drink = 0.6 oz pure alcoho l) Sex Assigned at Date Recorded Not on file documented as of this encounter Last Filed Vital Signs Vital Sign Reading Time Taken Comments Blood Pressure 128/70 10/17/2016 10:46 AM LOSS PREVENTION MANAGER Pulse 80 10/17/2016 10:46 AM LOSS PREVENTION MANAGER Temperature 36.9 ??C (98.4 ??F) 10/17/2016 10:46 AM LOSS PREVENTION MANAGER Respiratory Rate 18 10/17/2016 10:46 AM LOSS PREVENTION MANAGER Oxygen Saturation 100% 10/17/2016 10:46 AM LOSS PREVENTION MANAGER Inhaled Oxygen Concentration - - Weight 124.3 kg (274 lb) 10/17/2016 10:46 AM LOSS PREVENTION MANAGER Height 160 cm (5' 3) 10/17/2016 10:46 AM LOSS PREVENTION MANAGER Body Mass Index 48.54 10/17/2016 10:46 AM LOSS PREVENTION MANAGER documented in this encounter Patient Instructions Patient InstructionsAnabel Valenzuela CMA - 10/17/2016 10:37 AM CST Before Your Surgery ??? Call your surgeon if there is any change in your health. This includes signs of a cold or flu (such as a sore throat, runny nose, cough, rash or fever). ??? Do not smoke, drink alcohol or take over the counter medicine (unless your surgeon or primary care doctor tells you to) for the 24 hours before and after surgery. ??? If you take prescribed drugs: Follow your doctor???s orders about which medicines to take and which to stop until after surgery. ??? Eating and drinking prior to surgery: follow the instructions from your surgeon ??? Take a shower or bath the night before surgery. Use the soap your surgeon gave you to gently clean your skin. If you do not have soap from your surgeon, use your regular soap. Do not shave or scrubthe surgery site. Wear clean pajamas and have clean sheets on your bed. PREVENTION MANAGER documented in this encounter Progress Notes Lio Stone MD - 10/17/2016 10:37 AM CST [address] [phone] Dept: [phone] PRE-OP EVALUATION: Today's date: 10/17/2016 Lee Ann Herndon (: 1940) presents for pre-operative evaluation assessment as requested byDr. Lenore Keller She requires evaluation and anesthesia risk assessment prior to undergoing surgery/procedure for treatment of colon . Proposed procedure: partial colectomy Date of Surgery/ Procedure:10/24/16 Time of Surgery/ Procedure: 10:00 am Hospital/Surgical Facility: [facility] care {SURGERY FAX NUMBER:[id number]::Fax number for surgical facility: [phone] Primary Physician: Lio Stone Type of Anesthesia [...] ??? Primary hyperparathyroidism (H) 01/26/2014 ??? [facility] 02/12/[address] [facility] for business process manager. Nithya Tom RN-BSN, [facility] [phone] DX V65.8 REPLACED WITH [id number] [facility] (01/06/2013) ??? Obesity 01/18/2011 ??? GERD (gastroesophageal [...] [place] ??? [facility] ??? Appendectomy ??? Parathyroidectomy 01/26/2014 Procedure: PARATHYROIDECTOMY; Surgeon: Vonnie Murphy MD; Location: [facility] OR ??? Colonoscopy 05/30/13 polyps found - repeat in 3 years ??? Colonoscopy 07/03/2016 Dr. Bruce [facility] ??? Orthopedic surgery right knee replacement ??? [...] cardiovascular risks for perioperative complications such as (CO, PE, VFib and 3?? AV Block): No [...] evaluation report is provided to requesting physician. [place] Preop Guidelines PREVENTION MANAGER documented in this encounter Nursing Notes Anabel Valenzuela CMA - 10/17/2016 10:51 AM CST Chief Complaint Patient presents with ??? Pre-Op Exam colon Initial BP 128/70 mmHg Pulse 80 Temp(Src) 98.4 ??F (36.9 ??C) (Oral) Resp 18 Ht 5' 3 (1.6 m) Wt 274 lb (124.286 kg) BMI 48.55 kg/m2 SpO2 100% Estimated body mass index is 48.55 kg/(m^2) as calculated from the following: Height as of this encounter: 5' 3 (1.6 m). Weight as of this encounter: 274 lb (124.286 kg). BP completed using cuff size: susan Valenzuela PREVENTION MANAGER documented in this encounter Plan of Treatment Not on filedocumented as of this encounter Procedures Procedure Name Priority Date/Time Associated Diagnosis Comme nts BASIC METABOLIC Routine 10/17/2016 11:59 AM Preop general Resu lts for this PANEL LOSS PREVENTION MANAGER physical exam procedure are in the results section. CBC WITH PLATELETS Routine 10/17/2016 11:59 AM Preop general R esults for this LOSS PREVENTION MANAGER physical exam procedure are in the results section. EKG 12-LEAD Routine 10/17/2016 11:36 AM Preop general Results for this COMPLETE W/READ - LOSS PREVENTION MANAGER physical exam procedure are in CLINICS the results section. documented in this encounter Results (ABNORMAL) Basic metabolic panel (Ca, Cl, CO2, Creat, Gluc, K, Na, BUN) (10/17/2016 11:59 AM LOSS PREVENTION MANAGER) Analysis Performed At [facility] Time Signature Sodium 141 133 - 144 [facility] mmol/L [facility] Potassium 4.3 3.4 - 5.3 [facility] mmol/L [facility] Chloride 106 94 - 109 [facility] mmol/L [facility] Carbon Dioxide 27 20 - 32 [facility] mmol/L [facility] Anion Gap 8 3 - 14 [facility] mmol/L [facility] Glucose 101 (H) 70 - 99 [facility] mg/dL [facility] Comment: Non Fasting Urea Nitrogen 15 7 - 30 mg/dL [facility] Creatinine 0.91 0.52 - 1.04 mg/dL [facility] GFR Estimate 60 (L) >60 mL/min/1.7m2 [facility] Comment: Non GFR Calc GFR Estimate If Black 73 >60 mL/min/1.7m2 [facility] Comment: GFR Calc Calcium 9.4 8.5 - 10.1 mg/dL [facility] Specimen Anatomical Collection Method Collection Time Receive d Time (Source) Location / / Volume Laterality Blood specimen 10/17/2016 11:59 7 (specimen) AM LOSS PREVENTION MANAGER 12:00 PM LOSS PREVENTION MANAGER Lio Stone MD LAB - BLOOD ORDERABLES Performing Organization Address City/[facility]/ZIP Code Phon e Number [facility] [address] [place] [address] (ABNORMAL) CBC with platelets (10/17/2016 11:59 AM LOSS PREVENTION MANAGER) Analysis Performed At Patho logist Time Signature WBC 7.3 4.0 - 11.0 [facility] 10e9/L [facility] RBC Count 4.31 3.8 - 5.2 [facility] 10e12/L [facility] Hemoglobin 10.4 (L) 11.7 - [facility] 15.7 g/dL [facility] Hematocrit 35.7 35.0 - [facility] 47.[facility] % [facility] MCV 83 78 - 100 [facility] MCH 24.1 (L) 26.5 - [facility] 33.0 pg [facility] MCHC 29.1 (L) 31.5 - [facility] 36.5 g/dL [facility] RDW 17.6 (H) 10.0 - [facility] 15.0 % [facility] Platelet Count 205 150 - 450 [facility] 10e9/L [facility] Specimen Anatomical Collection Method Collection Time Receive d Time (Source) Location / / Volume Laterality Blood specimen 10/17/2016 11:59 7 (specimen) AM LOSS PREVENTION MANAGER 12:00 PM LOSS PREVENTION MANAGER Lio Stone MD LAB - BLOOD ORDERABLES Performing Organization Address City/State/ZIP Code Phon e Number [facility] [address] [place] [address] EKG 12-lead complete w/read - Clinics (10/17/2016 11:36 AM LOSS PREVENTION MANAGER) Narrative This result has an attachment that is no t available. Lio Stone MD ECG ORDERABLES documented in this encounter Visit Diagnoses Diagnosis Preop general physical exam - Primary Other specified pre-operative examinatio n documented in this encounter Additional Health Concerns Assessment Noted Time PHQ-9 Depression Total Score: 18 06/28/2016 7:24 AM CD T documented as of this encounter Care Teams Seating Captain Relationship Specialty Start Date End Date Lio Stone MD PCP - General Family Practice 06/19/16 [address] [place] [address] Lio Stone MD PCP - Assigned PCP 07/09/16 12/03/18 [address] [place] [address] Lio Stone MD Assigned PCP 07/09/16 01/24/20 [address] [place], [place] [id number] documented as of this encounter
--- OUTSIDE RECORDS SUMMARY | 2022-07-19 22:57 | XMS_ITS | Encounter Summary ---
:1940 Author Organization [place] Address [facility] [place] [address] Care Team Providers Name Role Phone Lio Stone MD Primary Care Provider Reason for Visit Reason Onset Date Comments Patient Request for Note/Letter 08/01/2021 Emotiona l support animal accomodations Encounter Details Date Type Department Care Team Description 08/01/2021 Telephone [facility] Lio Stone Request for Clinic [place] Glass MD Note/Letter (Emotional [address] [address] [facility] support animal [place], [place], [place] accomod ations) [phone] (Wo rk) Social History Tobacco Use Types Packs/Day Years Used Date Smoking Tobacco: Never Smokeless Tobacco: Never Alcohol Use Standard Drinks/Week Comments No 0 (1 standard drink = 0.6 oz pure alcoho l) Sex Assigned at Date Recorded Not on file documented as of this encounter Miscellaneous Notes Telephone Encounter - Abena Salas CMA - 08/23/2021 6:06 PM CST Attempted to contact patient by phone, unable to leave a VM, not set up. Sent a [employer]-chart message Abena Salas/LUIS EDUARDO [place] EM SUPPORT DEVELOPER Telephone Encounter - Tg Rodriguez - 08/22/2021 3:55 PM CST Called unable to leave VM . Will try and call again at a later time . Tg Rodriguez Manufacturing Shift Supervisor EM SUPPORT DEVELOPER Telephone Encounter - Senia Dougherty - 08/04/2021 1:48 PM CDT Tried calling patient. No answer, voice mailbox has not been set up. Senia Dougherty. Manufacturing Shift Supervisor Telephone Encounter - Aaliyah Reynolds RN - 08/02/2021 9:12 AM CDT See note, will need visit, pt SB1 and last appointment 2017, needs appointment, inform pt Patient Contact Attempt # 1 Was call answered? No. Unable to leave message, voice mail not set up Aaliyah Reynolds RN, BSN Message handled by CLINIC NURSE. Telephone Encounter - Kacie Barroso - 08/01/2021 3:49 PM CDT Reason for Call: Form, our goal is to have forms completed with 72 hours, however, some forms may require a visit or additional information. Type of letter, form or note: support animal accomodation Who is the form from?: Patient Where did the form come from: Pt needs a new letter for her support animal- her previous dog and now she has a new one. The complex she lives in is requesting a new letter for this dog. What clinic location was the form placed at?: [facility] Where the form was placed: pt needs drafted letter What number is listed as a contact on the form?: call patient for more info Additional comments: n/a Call taken on 08/01/2021 at 3:50 PM by Kacie Barroso documented in this encounter Plan of Treatment Not on filedocumented as of this encounter Visit Diagnoses Not on filedocumented in this encounter Additional Health Concerns Assessment Noted Time PHQ-9 Depression Total Score: 3 01/18/2017 7:33 AM CDT documented as of this encounter Care Teams Legal Associate Relationship Specialty Start Date End Date Lio Stone MD PCP - General Family Practice 06/19/16 [address] [place] [address] documented as of this encounter
--- OUTSIDE RECORDS SUMMARY | 2022-07-19 22:57 | XMS_ITS | Encounter Summary ---
:1940 Author Organization [place] Address [address] [place] [address]. [place] [address] Care Team Providers Name Role Phone Lio Stone MD Primary Care Provider [phone] Lio Stone MD Unavailable [phone] Lio Stone MD Unavailable [phone] Reason for Visit Reason Comments Medication Refill Sertraline 25 mg Encounter Details Date Type Department Care Team Description 02/11/2017 Refill [facility] Lio [facility] Sg Glass MD (Sertraline 25 mg ) [address] [place] [address] [address] [place] [address] [phone] Social History Tobacco Use Types Packs/Day Years Used Date Smoking Tobacco: Never Smokeless Tobacco: Never Alcohol Use Standard Drinks/Week Comments No 0 (1 standard drink = 0.6 oz pure alcoho l) Sex Assigned at Date Recorded Not on file documented as of this encounter Miscellaneous Notes Telephone Encounter - Aaliyah Reynolds RN - 02/13/2017 4:21 PM CDT Prescription [place] [facility] [place] Protocol. Aaliyah Reynolds RN, BSN Telephone Encounter - Karen Manning - 02/12/2017 9:08 AM CDT Sertraline 25 mg Last Written Prescription Date: 09/11/16 Last Fill Quantity: 90, # refills: 1 Last Office Visit with [facility] [place] care provider: 01/17/17 Dr. Stone Last PHQ-9 score on record= PHQ-9 SCORE 01/17/2017 Total Score - Total Score 3 documented in this encounter Plan of Treatment Not on filedocumented as of this encounter Visit Diagnoses Diagnosis Major depressive disorder, recurrent epi sode, mild (H) Major depressive disorder, recurrent epi sode, mild documented in this encounter Additional Health Concerns Assessment Noted Time PHQ-9 Depression Total Score: 3 01/18/2017 7:33 AM CDT documented as of this encounter Care Teams Crop Farmers Relationship Specialty Start Date End Date Lio Stoen MD PCP - General Family Practice 06/19/16 [id number] [place] [address] Lio Stone MD PCP - Assigned PCP 07/09/16 12/03/18 [address] [place] [address] Lio Stone MD Assigned PCP 07/09/16 01/24/20 [address] [place] [address] documented as of this encounter
--- OUTSIDE RECORDS SUMMARY | 2022-07-19 22:57 | XMS_ITS | Encounter Summary ---
:1940 Author Organization [place] Address [address] [place] [address]. [place] [address] Care Team Providers Name Role Phone Lio Stone MD Primary Care Provider Lio Stone MD Unavailable [phone] Lio Stone MD Unavailable [phone] Reason for Referral Consultation - Closed Specialty Diagnoses / Procedures Referred By Contact Refer red To Contact Orthopedics and Sports Diagnoses Acute right-sided low back pain with sciatica, sciatica laterality unspecified Hip pain, right Lio Stone [facility] [address] [place] [address]?? [place] [id number] [place] [address] Phone: Fax: Referral ID Status Reason Start Date Expiration Date Visits Requ ested Visits Authorized [id number] Closed 11/21/2016 11/21/2017 1 1 CIPAL PLANNER Reason for Visit Reason Comments Other follow up on hemoglobin Encounter Details Date Type Department Care Team Description 11/21/[address] [facility] Lio Stone Acute right-sided low back pain with sciatica, sciatica laterality unspecified (Primary Dx); [facility] [place] MD [facility] Hip pain, right; [address] [place] [address] Iron deficiency anemia due to [place] [address] [phone] Social History Tobacco Use Types Packs/Day Years Used Date Smoking Tobacco: Never Smokeless Tobacco: Never Alcohol Use Standard Drinks/Week Comments No 0 (1 standard drink = 0.6 oz pure alcoho l) Sex Assigned at Date Recorded Not on file documented as of this encounter Last Filed Vital Signs Vital Sign Reading Time Taken Comments Blood Pressure 157/94 11/21/2016 10:46 AM PRINCIPAL PLANNER Pulse 88 11/21/2016 10:46 AM PRINCIPAL PLANNER Temperature 36.7 ??C (98.1 ??F) 11/21/2016 10:46 AM PRINCIPAL PLANNER Respiratory Rate 12 11/21/2016 10:46 AM PRINCIPAL PLANNER Oxygen Saturation - - Inhaled Oxygen - - Concentration Weight 124.3 kg (274 lb) 11/21/2016 10:46 Patient refus ed AM PRINCIPAL PLANNER weight Height - - Body Mass Index 48.54 10/24/2016 12:02 PM PRINCIPAL PLANNER documented in this encounter Progress Notes Lio Stone MD - 11/21/2016 10:30 AM CST SUBJECTIVE: Lee Ann Herndon is a 76 year old female who presents to clinic today for the following health issues: Past Medical History Diagnosis Date ??? Arthritis of both knees ??? 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 Depression ??? Esophageal reflux ??? Hiatal hernia 2010 ??? Hypertension ??? Parathyroid abnormality (H) Past Surgical History Procedure Laterality Date ??? Dilation and curettage after spAb ??? Hernia repair Right ??? Joint replacement Bilateral 2006 - [facility] ??? Ankle surgery Left 2008 - [facility] ??? Appendectomy ??? Parathyroidectomy 01/26/2014 Procedure: PARATHYROIDECTOMY; [...] Travon Bruce MD; Location: [facility] ??? Laparoscopic cecectomy N/A 10/24/2016 Procedure: LAPAROSCOPIC CECECTOMY; Surgeon: Samia Keller MD; Location: [facility] OR Family History Problem Relation Age of Onset ??? Breast Cancer Mother ??? Breast Cancer Sister ??? Other Cancer Father Pancreatic ??? Gallbladder Disease Sister ??? Colon Cancer No family hx of Social History Substance Use Topics ??? Smoking status: Never Smoker ??? Smokeless tobacco: Never Used ??? Alcohol use No REVIEW OF SYSTEMS Generally has been fighting right leg pain, wants to get another orthopedic opinion, has hip and lowback right side issues feeling well until this episode. No problems with vision, hearing, dental or neck pain.Has hph airborne or ingestion allergy No chest pain, palpitations, dyspnea, change in bowel habits, blood in stool or dyspepsia. No rashes, changing moles, weakness, lassitude or back problems. No chronic issues . No dysuria Patient not a smoker. No problems with significant headaches. On exam the vital signs are stable [...] stance. Neck is supple. Back exam shows pain with hip torsion and straight leg raise (M54.40) Acute right-sided low back pain with sciatica, sciatica laterality unspecified (primary encounter diagnosis) Comment: Plan: ORTHO DOUGH MIXING MACHINE OPERATOR REFERRAL, CBC with platelets and differential (M25.551) Hip pain, right Comment: Plan: ORTHO DOUGH MIXING MACHINE OPERATOR REFERRAL, Basic metabolic panel (Ca, Cl, CO2, Creat, Gluc, K, Na, BUN) Follow up on hemoglobin. Patient would like to talk about her arthritis in the hip. The pain is getting worse. CIPAL PLANNER documented in this encounter Nursing Notes Michael Solo - 11/21/2016 10:30 AM CST Chief Complaint Patient presents with ??? Other follow up on hemoglobin Initial BP (!) 157/94 (BP Location: Left arm, Patient Position: Chair, Cuff Size: Adult Large) Pulse88 Temp 98.1 ??F (36.7 ??C) (Oral) Resp 12 Wt 274 lb (124.3 kg) BMI 48.54 kg/m2 Estimated body mass index is 48.54 kg/(m^2) as calculated from the following: Height as of 17: 5' 3 (1.6 m). Weight as of this encounter: 274 lb (124.3 kg). Medication Reconciliation: complete Michael Solo TANDEM MILL OPERATOR CIPAL PLANNER documented in this encounter Plan of Treatment Not on filedocumented as of this encounter Procedures Procedure Name Priority Date/Time Associated Diagnosis Comme nts CBC WITH PLATELETS & Routine 11/21/2016 11:10 Acute right-side d Results for this DIFFERENTIAL AM PRINCIPAL PLANNER low back pain with procedure are in sciatica, sciatica the resul ts laterality section. unspecified FERRITIN Routine 11/21/2016 11:10 Iron deficiency Results for this AM PRINCIPAL PLANNER anemia due to procedure are in chronic blood loss the resul ts section. BASIC METABOLIC PANEL Routine 11/21/2016 11:10 Hip pain, right Results for this AM PRINCIPAL PLANNER procedure are i n the results section. documented in this encounter Results (ABNORMAL) Ferritin (11/21/2016 11:10 AM PRINCIPAL PLANNER) P athologist Signature Ferritin 7 (L) 8 - 252 [facility] ng/mL [facility] Specimen Anatomical Collection Method Collection Time Receive d Time (Source) Location / / Volume Laterality Blood specimen 11/21/2016 11:10 7 1:08 (specimen) AM PRINCIPAL PLANNER PM PRINCIPAL PLANNER Lio Stone MD LAB - BLOOD ORDERABLES Performing Organization Address City/State/ZIP Code Phon e Number [facility] [address] [place] [address] Basic metabolic panel (Ca, Cl, CO2, Creat, Gluc, K, Na, BUN) (11/21/2016 11:10 AM PRINCIPAL PLANNER) athologist Signature Sodium 141 133 - 144 [place] mmol/L [facility] Potassium 4.4 3.4 - 5.3 [place] mmol/L [facility] Chloride 107 94 - 109 [place] mmol/L [facility] Carbon Dioxide 27 20 - 32 [place] mmol/L [facility] Anion Gap 7 3 - 14 [place] mmol/L [facility] Glucose 87 70 - 99 [place] mg/dL [facility] Urea Nitrogen 15 7 - 30 [place] mg/dL [facility] Creatinine 0.80 0.52 - [place] 1.04 mg/dL [facility] GFR Estimate 70 >60 [place] mL/min/1.7 CLINICS m2 [facility] Comment: Non GFR Calc GFR Estimate If Black 85 >60 mL/min/1.7m2 [facility] Comment: GFR Calc Calcium 9.5 8.5 - 10.1 mg/dL [place] [facility] ICS [facility] Specimen Anatomical Collection Method Collection Time Receive d Time (Source) Location / / Volume Laterality Blood specimen 11/21/2016 11:10 7 1:08 (specimen) AM PRINCIPAL PLANNER PM PRINCIPAL PLANNER Lio Stone MD LAB - BLOOD ORDERABLES Performing Organization Address City/State/ZIP Code Phon e Number [facility] [address] [place] [address] (ABNORMAL) CBC with platelets and differential (11/21/2016 11:10 AM PRINCIPAL PLANNER) athologist Signature WBC 6.4 4.0 - 11.0 [place] 10e9/L [facility] RBC Count 4.39 3.8 - 5.2 [place] 10e12/L [facility] Hemoglobin 10.8 (L) 11.7 - 15.7 [place] g/dL [facility] Comment: Results confirmed by repeat yanira t Hematocrit 36.1 35.0 - 47.0 % [facility] MCV 82 78 - 100 fl [facility] MCH 24.6 (L) 26.5 - 33.0 pg [facility] MCHC 29.9 (L) 31.5 - 36.5 g/dL [place] [facility] Comment: Results confirmed by repeat yanira t RDW 18.7 (H) 10.0 - 15.0 % [facility] Platelet Count 183 150 - 450 10e9/L [facility] Diff Method Automated Method [place] [facility] [place] % Neutrophils 60.3 % [facility] % Lymphocytes 29.6 % [facility] % Monocytes 6.0 % [facility] % Eosinophils 3.9 % [facility] % Basophils 0.2 % [facility] Absolute Neutrophil 3.9 1.6 - 8.3 10e9/L [place] [facility] Absolute Lymphocytes 1.9 0.8 - 5.3 10e9/L [facility] Absolute Monocytes 0.4 0.0 - 1.3 10e9/L [facility] Absolute Eosinophils 0.3 0.0 - 0.7 10e9/L [facility] Absolute Basophils 0.0 0.0 - 0.2 10e9/L [facility] Specimen Anatomical Collection Method Collection Time Receive d Time (Source) Location / / Volume Laterality Blood specimen 11/21/2016 11:10 7 1:08 (specimen) AM PRINCIPAL PLANNER PM PRINCIPAL PLANNER Lio Stone MD LAB - BLOOD ORDERABLES Performing Organization Address City/State/ZIP Code Phon e Number [facility] [address] [place] [address] documented in this encounter Visit Diagnoses Diagnosis Acute right-sided low back pain with sci atica, sciatica laterality unspecified - Primary Hip pain, right Pain in joint, pelvic region and thigh 

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
--- OUTSIDE RECORDS SUMMARY | 2022-07-19 22:57 | XMS_ITS | Encounter Summary ---
:1940 Author Organization [place] Address [facility] [place] [address] Care Team Providers Name Role Phone Lio Stone MD Primary Care Provider Lio Stone MD Unavailable [phone] Lio Stone MD Unavailable [phone] Reason for Visit Reason Onset Date Comments Refill Request 09/11/2016 sertraline (ZOLOFT) 25 MG tablet Encounter Details Date Type Department Care Team Description 09/11/2016 [facility] Refill Request Clinic Sg Gordillo MD (sertraline (ZOLOFT) [facility], [address] [place] [address] MG tablet) [address] [place] [address] [place], [place] [phone] (Wo rk) [address] [phone] Social History Tobacco Use Types Packs/Day Years Used Date Smoking Tobacco: Never Smokeless Tobacco: Never Alcohol Use Standard Drinks/Week Comments No 0 (1 standard drink = 0.6 oz pure alcoho l) Sex Assigned at Date Recorded Not on file documented as of this encounter Miscellaneous Notes Telephone Encounter - Siri Gonzales RN - 09/11/2016 3:06 PM CST Routing refill request to provider for review/approval because: PHQ-9 > 4. Siri Gonzales RN SHELLER MACHINE OPERATOR Telephone Encounter - Melanie Ansari - 09/11/2016 3:03 PM CST sertraline (ZOLOFT) 25 MG tablet Last Written Prescription Date: 02/10/16 Last Fill Quantity: 90, # refills: 1 Last Office Visit with [facility] primary care provider: 06/27/2016 Last PHQ-9 score on record= PHQ-9 SCORE 06/27/2016 Total Score - Total Score 18 WILLIAM Devine SHELLER MACHINE OPERATOR documented in this encounter Plan of Treatment Not on filedocumented as of this encounter Visit Diagnoses Diagnosis Major depressive disorder, recurrent epi sode, mild (H) - Primary Major depressive disorder, recurrent epi sode, mild documented in this encounter Additional Health Concerns Assessment Noted Time PHQ-9 Depression Total Score: 18 06/28/2016 7:24 AM CD T documented as of this encounter Care Teams Aerodynamics Engineer Relationship Specialty Start Date End Date Lio Stone MD PCP - General Family Practice 06/19/16 [address] [place] [address] Lio Stone MD PCP - Assigned PCP 07/09/16 12/03/18 [address] [place] [address] Lio Stone MD Assigned PCP 07/09/16 01/24/20 [address] [place] [address] documented as of this encounter
--- OUTSIDE RECORDS SUMMARY | 2022-07-19 22:57 | XMS_ITS | Encounter Summary ---
:1940 Author Organization [place] Address [address] [facility] [place] [address] Care Team Providers Name Role Phone Lio Stone MD Primary Care Provider [phone] Reason for Visit Auth/Cert Specialty Diagnoses / Procedures Referred By Contact Refer red To Contact Gastroenterology Diagnoses Screening Endoscopy Procedures COLONOSCOPY [address] [place] [address] Phone: Fax: Referral ID Status Reason Start Date Expiration Date Visits Requ ested Visits Authorized [id number] 1 1 Encounter Details Date Type Department Care Team Description 07/03/2016 Surgery [facility] Travon Cherry, Col onoscopy with Endoscopy Ronan BATISTA polypectomy by hot [address] [place] snare, saline lift.and [facility] cold forceps [address] [facility] polypectomy [phone] [address] [place], [place] [id number] (Wo rk) Surgery Details Date/Time Status Location OR Service Patient Class Case Case Trauma Class Type Case? 07/03/16 9:00 Posted GI GI A Gastroenterology Outpatient AM Panel 1 Procedure LRB Anes Op Region Wound Class Commen ts Colonoscopy with N/A Conscious Rectum II-Clean Colonosc opy with polypectomy by hot Sedation Contaminated poly pectomy by hot snare, saline snare, sali ne lift.and cold lift.and co ld forceps forceps polypectomy polypectomy TATTOOING, WITH N/A Rectum II-Clean COLONOSCOPY Contaminated COLONOSCOPY, WITH N/A Rectum II-Clean POLYPECTOMY AND Contaminated BIOPSY Surgeon Surgeon Role Service Panel Travon Cherry MD Primary Gastroenterology 1 documented in this encounter Social History Tobacco Use Types Packs/Day Years Used Date Smoking Tobacco: Never Smokeless Tobacco: Never Alcohol Use Standard Drinks/Week Comments No 0 (1 standard drink = 0.6 oz pure alcoho l) Sex Assigned at Date Recorded Not on file documented as of this encounter Last Filed Vital Signs Vital Sign Reading Time Taken Comments Blood Pressure 145/99 07/03/2016 9:30 AM CDT Pulse - - Temperature - - Respiratory Rate 13 07/03/2016 9:30 AM CDT Oxygen Saturation 96% 07/03/2016 9:30 AM CDT Inhaled Oxygen Concentration - - [...] the chance of preventing its spread. ?? [phone] Tram [facility], [address] [place] [address]. All rights reserved. This information is not [...] as of this encounter Consult Notes Travon Cherry MD - 07/03/2016 9:02 AM CDT Pre-Endoscopy History and Physical Lee Ann Escobar Date of : 1940 Age: [age] year [...] (gastroesophageal reflux disease) ??? Obesity ??? Health Halfway ??? HTN, goal below 140/90 ??? Primary [...] the consulting provider. Signed Electronically by: Travon Cherry July 03, 2016 documented in this encounter [...] Component Value Ref Test Analysis Performed At [facility] Range Method Time Signature Copath Report Patient Name: LEE ANN ESCOBAR MR#: [id number] Specimen #: [id number] Collected: 07/03/2016 Received: 07/03/2016 Reported: 07/04/2016 14:03 Ordering Phy(s): TRAVON CHERRY SPECIMEN(S): Cecal polyp FINAL DIAGNOSIS: Cecum, polyp, [...] Microscopic examination is performed. CPT Codes: A: 93985-YS8 TESTING LAB LOCATION: [address] ??[address] COLLECTION SITE: Client: [facility] Location: [facility] (R) Specimen (Source) Anatomical Collection Method Collection Time Re ceived Time Location / / Volume Laterality Polyp CECUM STRUCTURE / 07/03/2016 9:23 AM (morphologic Unknown CDT abnormality) Comment: Lio Stone RN Travon Cherry MD LAB - ANY [facility] Organization Address City/State/ZIP Code Phon e Number [place] COLONOSCOPY (07/03/2016 9:06 AM CDT) [facility] Method Time Signature COLONOSCOPY [facility] RAD IOLOGY RESULTS Patient Name: Lee Ann Escobar ?Procedure Date: 07/03/2016 9:06 AM ? Accou nt Number: [id number] Date of : 1940 ?Admit Type: Out patient Age: 76 ? 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 Lio Stone MD (Refkaylin wilder MD) Medicines: ?Fentanyl 100 micrograms IV, Midazolam 4 [...] and ?oxygen saturations were monitored continuously. The ?[employer] Colonoscope Model #PCF-H190L, ?[place]#138, SN#[id number] was introduced through the ?anus and advanced [...] The ? polyp was removed with a [employer] ld forceps. The polyp was removed with [...] Procedure Code(s): ? --- Professional --- ? 95288, Colonoscopy, flexible, pro ximal to splenic flexure; with removal ? of tumor(s), polyp(s), or other lesion(s) by snare te chnique ? 91573, Colonoscopy, f lexible, proximal to splenic flexure; with directed ? submucosal injection(s), any substance CPT copyright 2013 [employer]. All rights reserved. The codes documented in this report are prelimin bailey and upon right of way supervisor review may be revised to meet current compliance requirements. Travon Cherry M.D. Travon Cherry MD 07/03/2016 10:05 AM Number of Addenda: 0 Note Initiated On: 07/03/2016 9:06 AM MRN: ?[id number] Procedure Date: ? 07/03/2016 9:06:50 AM Scope [...] MAR Action Action Date Dose Rate Site fentaNYL Citrate (PF) (SUBLIMAZE) Given 07/03/2016 9:11 AM CDT 1 00 mcg injection PRN, Starting on Sun07/03/16 at 0911, Intra-procedure midazolam (VERSED) injection Given 07/03/2016 9:46 AM CDT 1 mg PRN, Starting on 07/03/16 at 0911, Intra-procedure Given 07/03/2016 9:38 AM CDT 1 mg Given 07/03/2016 9:11 AM CDT 2 mg sodium chloride (PF) 0.9% PF flush 3 mL Given 07/03/2016 9:38 AM CDT 3 mLs 3 mL, Intracatheter, EVERY 1 HOUR PRN, line flush, for peripheral IV flush post IV meds, Starting on Sun07/03/16 at 0838, Pre-procedure Given 07/03/2016 9:11 AM CDT 3 mLs sodium chloride (PF) 0.9% PF flush 3 mL Given 07/03/2016 9:46 AM CDT 3 mLs 3 mL, Intravenous, EVERY 1 MIN PRN, line flush, after medication administration, Starting on 07/03/16 at 0838, For peripheral IV flush post IV meds, Pre-procedure documented in this encounter Active and Recently Administered Medications Times are shown in CDT. PRN Medication Order 07/01/2016 07/02/2016 07/03/2016 fentaNYL Citrate (PF) (SUBLIMAZE) injection (CANCELED) 0911 (Given - Provider: Travon Cherry MD) PRN, Starting 07/03/16 at 0911, Intra-procedure midazolam (VERSED) injection (CANCELED) 0911 (Given - Provider: Travon Cherry MD)0938 (Given - Provider: Joy Montana, RN - Comment: vorb)0946 (Given - Provider: Aaliyah Biggs RN - Comment: saira burden) PRN, Starting 07/03/16 at 0911, Intra-procedure sodium chloride (PF) 0.9% PF flush 3 mL (CANCELED) 0911 (Given - Provider: Travon Cherry MD)0938 (Given - Provider: Joy Montana RN) 3 mL, Intracatheter, EVERY 1 HOUR PRN, l ine flush, for peripheral IV flush post IV meds, Starting 07/03/16 at 0838, Pre-procedure sodium chloride (PF) 0.9% PF flush 3 mL (CANCELED) 0946 (Given - Provider: Aaliyah Biggs RN) 3 mL, Intravenous, EVERY 1 MIN PRN, line flush, after medication administration, Starting 07/03/16 at 0838, For peripheral IV flush post IV meds, Pre-procedure documented in this encounter Additional Health Concerns Assessment Noted Time PHQ-9 Depression Total Score: 18 06/28/2016 7:24 AM CD T documented as of this encounter Care Teams Dispatch Coordinator Relationship Specialty Start Date End Date Lio Stone MD PCP - General Family Practice 06/19/16 [address] [place] [address] documented as of this encounter
--- OUTSIDE RECORDS SUMMARY | 2022-07-19 22:57 | XMS_ITS | Encounter Summary ---
:1940 Author Organization [facility] [place] Address [address] [place] [address]. [place] [address] Care Team Providers Name Role Phone Lio Stone MD Primary Care Provider [phone] Encounter Details Date Type Department Care Team Description 07/24/2020 Travel Social History Tobacco Use Types Packs/Day [...] documented as of this encounter Care Teams Utility Sales And Service Manager Relationship Specialty Start Date End Date Lio Stone MD PCP - General Family Practice 06/19/16 [address] [place] [address] documented as of this encounter
--- OUTSIDE RECORDS SUMMARY | 2022-07-19 22:57 | XMS_ITS | Encounter Summary ---
:1940 Author Organization [place] Address [facility] [place] [address] Care Team Providers Name Role Phone Lio Stone MD Primary Care Provider Lio Stone MD Unavailable Lio Stone MD Unavailable [phone] Reason for Visit Auth/Cert Specialty Diagnoses / Procedures Referred By Contact Refer red To Contact Surgery Diagnoses Right colon polyp Rh Periop Services Procedures LAPAROSCOPIC CECECTOMY COLECTOMY RIGHT [address] [place], [place] [address] Phone: Fax: Referral ID Status Reason Start Date Expiration Date Visits Requ ested Visits Authorized [id number] 1 1 Encounter Details Date Type Department Care Team Description 10/24/2016 Anesthesia Event [facility] Jacques Thomas MD [facility] ANESTHESIA [address] [place] [address] PeriOp Services Nikki Dejesus, [facility] ANEST[facility]ESIA [address] [place] [address] [address] [place] [address] Anesthesia Record Procedure Summary Procedure Name Responsible Anesthesia Start Anesthesia Stop Anesthesiologist Time Time LAPAROSCOPIC CECECTOMY Jacques Thomas MD 10/24/16 1425 0 10/24/16 1724 WITH LYSIS OF ADHESIONS (Abdomen) Events Date Time Event Comment 10/24/2016 1425 An Start 1431 An Start Data 1436 An Induction 1437 AN START SCOTT 1438 An Intubation 1438 MD Present 1441 MD Present 1441 MD Present 1506 MD Present 1508 Quick Note 19.1 degrees anthony ndelenberg. 1543 MD Present 1614 MD Present 1634 AN END SCOTT BILLING 1634 AN START SEVO 1706 MD Present 1707 AN END SEVO 1720 an stop data 1724 An Stop Electronically s igned by Tiffany Pritchard on October 24, 2016 5:24 PM Name Total midazolam 1mg/mL 2 mg fentaNYL (SUBLIMAZE) injection 250 mcg propofol (DIPRIVAN) injection 10 mg/mL vial 200 mg rocuronium 10mg/mL 70 mg glycopyrrolate 0.2mg/mL 0.7 mg neostigmine 1mg/mL 4 mg dexamethasone 4mg/mL 4 mg ondansetron 2mg/mL 4 mg HYDROmorphone 2 mg ePHEDrine 50mg/mL 5 mg lidocaine 1 % 1 mL 50 mg metroNIDAZOLE (FLAGYL) infusion 500 mg 500 mg ciprofloxacin (CIPRO) infusion 400 mg 400 mg labetalol syringe 20 mg 5 mg lactated ringers infusion 1,800 mL Agents Name O2 Air Exp Sevoflurane Exp Desflurane Blood No blood administrations on file. Lines, Drains, and Airways Type Details Placement Removal Incision/Surgical Site 10/24/16; 1704; 10/24/16 1704 by Abdomen Korin Castellanos RN Peripheral IV 10/24/16; 18 G; Right; 10/24/16 0000 by 10/25/16 1158 by Hand Alix Barrett, Hollie Lo RN RETIRED ETT 10/24/16; 1438; Mask 10/24/16 1438 by 10/24/16 1 753 by Ventilation: Easy with Gabe Smalls Holinka, Ann, RN oral airway; Ease of INSURANCE WRITER CABLE FERRY OPERATOR Intubation: Easy; Airway Size: 7; Cuffed; Oral; Blade Type: Nunez; Blade Size: 2; Place by: ; Insertion Attempts: 1; Breath Sounds: Equal, clear and bilateral; End Tidal CO2: Present; Dentition: Unchanged, Intact; Grade View of Cords: 1 Urethral Catheter 10/24/16; 1445; No; 10/24/16 1445 by 10/24/16 1725 by /GI/SALES DEPARTMENT SUPERVISOR Pelvic Lima Lopez RN Holinka, Ann, RN Procedure; 16 fr documented in this encounter Social History Tobacco Use Types Packs/Day Years Used Date Smoking Tobacco: Never Smokeless Tobacco: Never Alcohol Use Standard Drinks/Week Comments No 0 (1 standard drink = 0.6 oz pure alcoho l) Sex Assigned at Date Recorded Not on file documented as of this encounter OR Notes Anesthesia Postprocedure Evaluation - Elvis Griffin MD - 10/24/2016 7:46 PM CST Patient: Lee Ann Herndon LAPAROSCOPIC CECECTOMY (N/A Abdomen) Additional InformationProcedure(s): LAPAROSCOPIC CECECTOMY - Wound Class: II-Clean Contaminated Diagnosis:Right colon polyp Diagnosis Additional Information: cecal polyp?? At the appendiceal orifice, grossly negative margins?? Anesthesia Type: General, ETT Note: Anesthesia Post Evaluation Patient location during evaluation: PACU Patient participation: Able to fully participate in evaluation Level of consciousness: awake Pain management: adequate Airway patency: patent Cardiovascular status: acceptable Respiratory status: acceptable Hydration status: acceptable PONV: none Anesthetic complications: None Last vitals: Filed Vitals: 10/24/16 1900 10/24/16 1915 10/24/16 1930 BP: 136/81 136/72 132/82 Temp: Resp: 12 11 11 SpO2: 90% 90% 90% Electronically Signed By: Elvis Griffin MD October 24, 2016 7:46 PM LING MACHINE TENDER Anesthesia Postprocedure Evaluation - Jacques Thomas MD - 10/24/2016 5:55 PM CST Patient: Lee Ann Herndon LAPAROSCOPIC CECECTOMY (N/A Abdomen) Additional InformationProcedure(s): LAPAROSCOPIC CECECTOMY - Wound Class: II-Clean Contaminated Diagnosis:Right colon polyp Diagnosis Additional Information: cecal polyp?? At the appendiceal orifice, grossly negative margins?? Anesthesia Type: General, ETT Note: Anesthesia Post Evaluation Patient location during evaluation: PACU Patient participation: Able to fully participate in evaluation Anesthetic complications: None Last vitals: Filed Vitals: 10/24/16 1730 10/24/16 1735 10/24/16 1740 BP: 139/78 139/78 138/77 Temp: Resp: 7 7 7 SpO2: 98% 97% 97% Electronically Signed By: Jacques Thomas MD October 24, 2016 5:55 PM LING MACHINE TENDER Anesthesia Preprocedure Evaluation - Juan Daniel Lindsey MD - 10/24/2016 1:13 PM RATTLING MACHINE TENDER Anesthesia Evaluation . Pt has had prior anesthetic. Type: General ROS/MED HX ENT/Pulmonary: - neg pulmonary ROS Neurologic: - neg neurologic ROS Cardiovascular: (+) hypertension----. : . . . :. . METS/Exercise Tolerance: Hematologic: - neg hematologic ROS Musculoskeletal: - neg musculoskeletal ROS GI/Hepatic: (+) GERD Asymptomatic on medication, hiatal hernia, Other GI/Hepatic right colon polyp Renal/Genitourinary: - ROS Renal section negative Endo: (+) Obesity, . Psychiatric: (+) psychiatric history depression Infectious Disease: - neg infectious disease ROS Malignancy: - no malignancy Other: (+) No chance of C-spine cleared: N/A, no H/O Chronic Pain,no other significant disability - neg other ROS Physical Exam Normal systems: cardiovascular, pulmonary and dental Airway Mallampati: II TM distance: >3 FB Neck ROM: full Dental Cardiovascular Pulmonary Anesthesia Plan History & Physical Review History and physical reviewed and following examination; no interval change. ASA Status: 2 . NPO Status: > 8 hours Plan for General with Intravenous induction. Maintenance will be Balanced. PONV prophylaxis: Ondansetron (or other 5HT-3) and Dexamethasone or Solumedrol Postoperative Care Postoperative pain management: IV analgesics. Consents Anesthetic plan, risks, benefits and alternatives discussed with: Patient. Use of blood products discussed: Yes. Use of blood products discussed with Patient. Consented to blood products. . . LING MACHINE TENDER documented in this encounter Miscellaneous Notes Anesthesia Care Transfer Note - Pritchard, Tiffany Ammy, INSURANCE WRITER CABLE FERRY OPERATOR - 10/24/2016 5:23 PM CST Patient: Lee Ann Herndon LAPAROSCOPIC CECECTOMY (N/A Abdomen) Additional InformationProcedure(s): LAPAROSCOPIC CECECTOMY - Wound Class: II-Clean Contaminated Diagnosis: Right colon polyp Diagnosis Additional Information: No value filed. Anesthesia Type: General Note: Airway :ETT Patient transferred to:PACU Comments: Pt to OR with ETT on O2. Report to RN Vitals: (Last set prior to Anesthesia Care Transfer) Electronically Signed By: Tiffany Pritchard APRN CRNA October 24, 2016 5:23 PM LING MACHINE TENDER documented in this encounter Plan of Treatment Not on filedocumented as of this encounter Visit Diagnoses Not on filedocumented in this encounter Administered Medications Inactive Administered Medications - up to 3 most recent administrations Medication Order MAR Action Action Date Dose Rate Site ciprofloxacin (CIPRO) infusion 400 Given 10/24/2016 2:45 PM RATTLING MACHINE TENDER 400 mg mg Routine, 400 mg, Intravenous, SEE ADMIN INSTRUCTIONS, Starting on Sun10/24/16 at 1204, Intra-Op Dose.?Give every 6 hours while patient in surgery, starting 6 hours after pre-op dose.?DO NOT GIVE intra-op dose if CrCl less than 10 mL/min (on dialysis).?If CrCl less than 50 mL/min, double the time interval between doses., Indications: Perioperative Pharmacoprophylaxis, Pre-procedure dexamethasone (DECADRON) injection Given 10/24/2016 2:36 PM RATTLING MACHINE TENDER 4 mg PRN, Administer over 1-4 Minutes, Starting on Sun10/24/16 at 1436, Anesthesia Intra-op ePHEDrine injection Given 10/24/2016 3:08 PM RATTLING MACHINE TENDER 5 mg PRN, Starting on Sun10/24/16 at 1508, Anesthesia Intra-op fentaNYL Citrate (PF) (SUBLIMAZE) inject ion Given 10/24/2016 4:03 PM RATTLING MACHINE TENDER 50 mcg PRN, moderate to severe pain, Starting on Sun10/24/16 at 1436, Anesthesia Intra-op Given 10/24/2016 3:33 PM RATTLING MACHINE TENDER 100 mcg Given 10/24/2016 2:36 PM RATTLING MACHINE TENDER 100 mcg glycopyrrolate (ROBINUL) injection Given 10/24/2016 5:04 PM RATTLING MACHINE TENDER 0.6 mg PRN, Starting on Sun10/24/16 at 1436, Anesthesia Intra-op Given 10/24/2016 2:36 PM RATTLING MACHINE TENDER 0.1 mg HYDROmorphone (DILAUDID) injection Given 10/24/2016 3:19 PM RATTLING MACHINE TENDER 1 mg PRN, moderate to severe pain, Starting on Sun10/24/16 at 1453, Anesthesia Intra-op Given 10/24/2016 2:53 PM RATTLING MACHINE TENDER 1 mg labetalol (NORMODYNE/TRANDATE) injection Given 10/24/2016 4:43 PM RATTLING MACHINE TENDER 5 mg PRN, high blood pressure, Starting on Sun10/24/16 at 1643, Anesthesia Intra-op lactated ringers infusion New Bag 10/24/2016 2:53 PM RATTLING MACHINE TENDER at 25 mL/hr, Intravenous, CONTINUOUS, IF patient NOT on dialysis., Pre-procedure, Starting on Sun10/24/16 at 1215, Until Sun10/24/16 at 1721 New Bag 10/24/2016 2:25 PM RATTLING MACHINE TENDER lidocaine 1 % 1 mL Given 10/24/2016 2:36 PM RATTLING MACHINE TENDER 50 mg 1 mL, Other, EVERY 1 HOUR PRN, mild pain with VAD insertion or accessing implanted port, Starting on Sun10/24/16 at 1204, Do NOT give if patient has a history of allergy to any local anesthetic or any jus product. MAX dose 1 mL subcutaneous OR intradermal in divided doses., Pre-procedure metroNIDAZOLE (FLAGYL) infusion 500 mg Given 10/24/2016 2:25 PM RATTLING MACHINE TENDER 500 mg Routine, 500 mg, Intravenous, PRE-OP/PRE-PROCEDURE, Starting on Sun10/24/16 at 1204, For 1 dose, Give within one hour of procedure., Indications: Perioperative Pharmacoprophylaxis, Pre-procedure midazolam (VERSED) injection Given 10/24/2016 2:25 PM RATTLING MACHINE TENDER 2 mg PRN, anxiety, Starting on Sun10/24/16 at 1425, Anesthesia Intra-op neostigmine (PROSTIGMINE) injection Given 10/24/2016 5:04 PM RATTLING MACHINE TENDER 4 mg Intravenous, PRN, Starting on Sun10/24/16 at 1704, Anesthesia Intra-op ondansetron (ZOFRAN) injection Given 10/24/2016 2:36 PM RATTLING MACHINE TENDER 4 mg PRN, nausea, vomiting, Administer over 2-5 Minutes, Starting on Sun10/24/16 at 1436, Anesthesia Intra-op propofol (DIPRIVAN) injection 10 mg/mL v ial Given 10/24/2016 2:36 PM RATTLING MACHINE TENDER 200 mg PRN, Starting on Sun10/24/16 at 1436, Anesthesia Intra-op rocuronium (ZEMURON) injection Given 10/24/2016 4:37 PM RATTLING MACHINE TENDER 10 mg PRN, Starting on Sun10/24/16 at 1436, Anesthesia Intra-op Given 10/24/2016 4:02 PM RATTLING MACHINE TENDER 10 mg Given 10/24/2016 3:33 PM RATTLING MACHINE TENDER 10 mg documented in this encounter Additional Health Concerns Assessment Noted Time PHQ-9 Depression Total Score: 18 06/28/2016 7:24 AM CD T documented as of this encounter Care Teams Bunghole Borer Relationship Specialty Start Date End Date Lio Stone MD PCP - General Family Practice 06/19/16 [address] [place] [address] Lio Stone MD PCP - Assigned PCP 07/09/16 12/03/18 [address] [place] [address] Lio Stone MD Assigned PCP 07/09/16 01/24/20 [address] [place] [address] documented as of this encounter
--- OUTSIDE RECORDS SUMMARY | 2022-07-19 22:57 | XMS_ITS | Encounter Summary ---
:1940 Author Organization [place] Address [facility] [address] Care Team Providers Name Role Phone Lio Stone MD Primary Care Provider Lio Stone MD Unavailable [phone] Lio Stone MD Unavailable [phone] Reason for Visit Reason Comments Medication Refill meloxicam (MOBIC) 7.5 MG tab let Encounter Details Date Type Department Care Team Description 03/14/[address] [facility] Lio Stone Medica tion Refill Clinic Adri Glass MD (meloxicam (MOBIC) 7.5 [address] [facility] [address] MG tablet) [place] [address] [phone] (Wo rk) Social History Tobacco Use Types Packs/Day Years Used Date Smoking Tobacco: Never Smokeless Tobacco: Never Alcohol Use Standard Drinks/Week Comments No 0 (1 standard drink = 0.6 oz pure alcoho l) Sex Assigned at Date Recorded Not on file documented as of this encounter Miscellaneous Notes Telephone Encounter - Michelle William RN - 03/15/2017 1:53 PM CDT Lab will be due 06/28/17. Medication approved per standing orders. Michelle William RN Creatinine Date Value Ref Range Status 03/10/2017 1.06 (H) 0.52 - 1.04 mg/dL Final Lab Results Component Value Date AST 14 06/28/2016 Lab Results Component Value Date ALT 17 06/28/2016 BP Readings from Last 3 Encounters: 03/10/17 152/84 01/17/17 138/80 11/21/16 (!) 157/94 Telephone Encounter - Yudelka Tinoco - 03/14/2017 1:22 PM CDT meloxicam (MOBIC) 7.5 MG tablet Last Written Prescription Date: Last Fill Quantity: 30,02/12/2017 # refills: 1 Last Office Visit with [facility], P or [facility] prescribing provider: 01/17/2017-Dr Stone documented in this encounter Plan of Treatment Not on filedocumented as of this encounter Visit Diagnoses Diagnosis Hip pain, right Pain in joint, pelvic region and thigh documented in this encounter Additional Health Concerns Assessment Noted Time PHQ-9 Depression Total Score: 3 01/18/2017 7:33 AM CDT documented as of this encounter Care Teams Client Delivery Specialist Relationship Specialty Start Date End Date Lio Stone MD PCP - General Family Practice 06/19/16 [address] [place] [address] Lio Stone MD PCP - Assigned PCP 07/09/16 12/03/18 [address] [place] [address] Lio Stone MD Assigned PCP 07/09/16 01/24/20 [address] [place] [address] documented as of this encounter
--- OUTSIDE RECORDS SUMMARY | 2022-07-19 22:57 | XMS_ITS | Clinical Summary ---
:1940 Author Organization [facility] Address [address] [place] [address] Care Team Providers Name Role Phone Lio Stone MD Primary Care Provider [phone] Allergies Active Allergy Reactions Severity Noted Date Comments Cephalosporins Hives 10/23/2003 keflex Clindamycin Diarrhea 07/27/2007 Erythromycin Nausea and Vomiting, Hives 10/23/2003 Penicillins Hives, Itching 10/23/2003 Sympathomimetics Swelling 10/23/2003 resperidol Tetracyclines Hives, Itching 10/23/2003 Medications Medication Sig Dispensed Refills Start Date End Date Status sertraline (ZOLOFT) 25 TAKE 1 TAB BY 90 tablet 1 02/13/2017 Active MG tabletIndications: MOUTH DAILY, IF Major depressive HAVING A BAD DAY disorder, recurrent CAN TAKE 1 EXTRA episode, mild (H) TAB hydrOXYzine (ATARAX) Take 1-2 tablets 60 tablet 1 03/10/2017 Active 25 MG tablet (25-50 mg) by mouth every 6 hours as needed for itching meloxicam (MOBIC) 7.5 TAKE 1 TABLET BY 30 tablet 1 03/15/2017 Active MG tabletIndications: MOUTH DAILY Hip pain, right clindamycin (CLEOCIN) Take 1 capsule 21 capsule 0 07/25/2020 Active 300 MG capsule (300 mg) by mouth 3 times daily Active Problems Problem Noted Date Adenomatous colon polyp 10/24/2016 ACP (advance care planning) 08/05/2015 Overview: Advance Care Planning 08/05/2015: ACP Rev iew and Resources Provided: Reviewed chart for advance care plan. Lee Ann Herndon has no plan and PRIOR/FULL code status on file. Discussed available resources and provided with information. Confirme d code status reflects current choices pending further ACP discussions. Confirmed/documented legally designated decision maker(s). Added by Sanjiv Pritchard, VEGETABLE CUTTER Lumbago 05/01/2014 Vitamin D deficiency disease 02/09/2014 Hypocalcemia 02/03/2014 Tetany due to low calcium from parathyroid disease 03/2014 Primary hyperparathyroidism 01/26/2014 HTN, goal below 140/90 01/19/2014 Health Alf 02/12/2012 Overview: [facility] for mental health program manager. Nithya Tom RN-BSN, [facility] [phone] DX V65.8 REPLACED WITH [id number] (01/06/2013) Obesity 01/18/2011 GERD (gastroesophageal reflux disease) 12/15/2010 CARDIOVASCULAR SCREENING; LDL GOAL LESS THAN 160 07/31 Anxiety 04/04/2010 Mild major depression 04/04/2010 Edema 10/23/2003 Pain in joint, lower leg 10/23/2003 Generalized osteoarthrosis, unspecified site 4 Resolved Problems Problem Noted Date Resolved Date Gout 09/11/2014 02/10/2016 Overview: Problem list name updated by automated p rocess. Provider to review Hypertension 12/31/2013 04/28/2014 iamAFTERCARE FOLLOWING JOINT REPLACEMENT 02/07/2006 05/23/2006 iamKNEE JOINT REPLACEMENT STATUS 02/07/2006 006 Other general medical examination for administrative purpose s 12/19/2004 02/06/2011 Congestive heart failure 10/23/2003 12/15/2013 Overview: Problem list name updated by automated p rocess. Provider to review Depressive disorder, not elsewhere classified 10/23/2003 04/04/2010 Immunizations Name Administration Dates Next Due Pneumo Conj 13-V (2010&after) 06/02/2015 Pneumococcal 23 valent 06/19/1997 TD (ADULT, 7+) 06/19/1997 TDAP Vaccine (Adacel) 02/28/2008 Zoster vaccine, live 06/02/2015 Family History Medical History Relation Comments Other Cancer Father Pancreatic Breast Cancer Mother Breast Cancer Sister 1 Gallbladder Disease Sister 3 Colon Cancer No family hx of Relation Status Comments Brother 1 (Age 23) x1 Brother 2 (Age 70) x1 Father (Age 70) Maternal Grandfather Maternal Grandmother Mother (Age 56) Paternal Grandfather Paternal Grandmother Sister 1 Alive x3 Sister 2 (Age 43) x1 Sister 3 Social History Tobacco Use Types Packs/Day Years Used Date Smoking Tobacco: Never Smokeless Tobacco: Never Tobacco Cessation: Counseling Given: Yes Alcohol Use Standard Drinks/Week Comments No 0 (1 standard drink = 0.6 oz pure alcoho l) Sex Assigned at Date Recorded Not on file Last Filed Vital Signs Vital Sign Reading [...] Mass Index 48.54 01/17/2017 11:48 AM CDT Plan of Treatment Health Maintenance Due Date Last Done Comments ANNUAL REVIEW OF HM ORDERS 1942 CT COLONOGRAPHY 1940 DEXA 1940 FIT-DNA (Cologuard) 1940 FLEX SIG 1940 HEPATITIS B IMMUNIZATION (1 1940 of 3 - 3-dose series) COVID-19 Vaccine (#1) 1940 MEDICARE ANNUAL WELLNESS 2007 VISIT ZOSTER IMMUNIZATION (2 of 07/28/2015 06/02/2015 3) Pneumococcal Vaccine: 65+ 06/02/2016 06/02/2015, 06/19/1997 Years (#3) FALL RISK ASSESSMENT 03/09/2017 03/09/2016, 06/05/2014 FIT 06/28/2017 06/28/2016 PHQ-9 07/19/2017 01/17/2017, 06/27/2016, 03/09/2016, Additional history exists LIPID 05/26/2018 05/26/2013, 07/28/2002 COLONOSCOPY 07/03/2019 07/03/2016, 07/03/2016, 05/30/2013 COLORECTAL CANCER SCREENING 07/03/2019 ADVANCE CARE PLANNING 08/05/2020 08/05/2015, 08/05/2015, 03/20/2011 (Declined) INFLUENZA VACCINE (#1) 2022 DTAP/TDAP/TD IMMUNIZATION 07/10/2028 07/10/2018, 07/10/2018 , (4 - Td or Tdap) 02/28/2008, Additional history exists DEPRESSION ACTION PLAN Completed 03/09/2016, 06/05/2014, 05/26/2013, Additional history exists IPV IMMUNIZATION Aged Out No longer eligi ble based on patient 's age to complete this topic MENINGITIS IMMUNIZATION Aged Out No longe r eligible based on patient 's age to complete this topic Insurance Payer Benefit Plan / Subscriber ID Effective Dates Phone Addre ss Type Group ARE [facility] MEDICARE [id number] 2019-Present [phone] [address] [place] [address] Advance Directives For more information, please contact: [phone] Documents on File Type Date Recorded 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
--- NOTE | 2022-07-19 22:58 | ED_ITS ---
HPI - URI/Sore Throat General Date Seen: 07/19/22 Chief Complaint: Ear/Nose/Throat Problem Stated Complaint: Pain around face, sinus infection Time Seen by Provider: 07/19/22 21:49 Source: patient Mode of arrival: ambulatory Limitations: no limitations History of Present Illness HPI Narrative: Patient is 82-year-old female presents here with her , she was seen earlier in the day about 6 hours ago in our emergency room for nausea vomiting, she failed she tells me to explained to the ER physician that she was having facial fullness at that time. She comes back increase she thinks she has a sinus infection. She thinks this is the cause of her vomiting and nausea, she has not vomited since she has been here. She feels fullness in her mid face and also above her eyes. Specially when she lays down. This is consistent with previous sinus infections she tells me, she denies a fever, has felt chilled at times and the feeling of a runny nose has been going on for about a week. She has a slight cough associated with this. No overt headache, neck discomfort, shortness of breath, chest pain, abdominal pain, dysuria frequency rashes or other symptoms. She tells me she is extremely healthy and does not even have a primary care physician. 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 She is on no chronic medications, but is allergic to penicillins, and tetracycline. Has not been taking any dysm-twh-loelshs medications for this. MD elicited complaint: nasal congestion and sinus pain Pertinent past history: sinusitis Onset (ago): day(s) Consistency: constant Severity: moderate Description of mucous: clear Able to tolerate fluids by mouth: Yes Exacerbating factors: changing head position and supine positioning Relieving factors: nothing Associated symptoms: denies other symptoms Treatments prior to arrival: none Related Data Previous Rx's Medication Instructions Recorded nirmatrelvir 300 mg (150 mg See Rx Instructions PO .COMPLEX 07/19/22 x2)-ritonavir 100 mg tablet,dose #30 ea pack(EUA) (Paxlovid) ondansetron 4 mg disintegrating 4 mg PO Q6H #20 tabs 07/19/22 tablet Allergies Allergy/AdvReac Type Severity Reaction Status Date / Time ampicillin Allergy Mild Hives Verified 07/19/22 22:01 Cephalosporins Allergy Mild Hives Verified 07/19/22 22:27 erythromycin base Allergy Mild Hives, Verified 07/19/22 22:27 Nausea/Vomiting Penicillins Allergy Mild Hives Verified 07/19/22 22:01 tetracycline Allergy Mild Hives Verified 07/19/22 22:01 clindamycin AdvReac Mild Diarrhea Verified 07/19/22 22:27 Review of Systems Status of ROS: Reports: 10 or more systems reviewed and unremarkable except as noted in History and below [facility] Medical History Anxiety Arthritis of both knees CHF (congestive heart failure) Edema Generalized osteoarthritis GERD (gastroesophageal reflux disease) Gout Hiatal hernia Hypertension Hypocalcemia Lumbago Mild major depression Obesity Primary hyperparathyroidism Vitamin D deficiency disease Surgical History H/O dilation and curettage H/O hernia repair History of ankle surgery History of appendectomy History of left knee replacement History of orthopedic surgery History of parathyroidectomy History of total right knee replacement S/P cecostomy Social History Smoking Status: Never smoker Do you use any of these nicotine containing products: None How often do you have a drink containing alcohol: never How often do you have six or more drinks on one occasion: Never AUDIT-C Alcohol total score: 0 Non-prescribed substance use: denies use Exam Narrative: Exam Narrative: Patient is seen in room 7 in no apparent distress, her vital signs are stable, she is alert communicative and nontoxic. Pupils are equal round reactive to light there is no scleral icterus redness TMs bilaterally are normal, oropharynx is normal her sinus mucosa bilaterally is engorged, her sinuses do appear to transilluminate. But are tender to palpation both over her maxillary and frontal regions. Oropharynx is otherwise normal, her neck is supple full range of motion is elicited, with absence of meningismus. Good air entry is noted bilaterally with no wheezing crackles noted she is mildly kyphotic, heart sounds S1-S2 are normal there is no S3-S4 clicks murmurs or gallops noted. Abdominal exam is soft obese there is no guarding no organomegaly, bowel sounds are normal, there is no tenderness to palpation. No CVA tenderness she moves all extremities independently and well. Absence of rashes are noted. Const: Vital Signs, click to edit/add: Vital Signs - 24 hr 07/19/22 22:01 Temperature 98.9 F Pulse Rate [Right Pulse Oximeter] 75 Respiratory Rate 18 Blood Pressure [Ri ght Upper Arm] 143/76 H Pulse Oximetry 95 Oxygen Delivery Me thod Room Air Documenting provider has reviewed patient's vital signs: yes Common normals: no apparent distress Course Course Hospital Course: Patient is seen and assessed she is nontoxic she is COVID positive, her symptoms have been for 5-7 days but her real symptoms have been only for the last 2 so I would tend air on the side of that she is still in the window for treatment with Paxlovid. We went over the risks benefits and side effects, and I went through the liver pool interaction check her, and her Zofran and Zithromax would be safe with this. She may use Tylenol for the discomfort, and we went over worsening, and monitoring using an oxygen saturation monitor P Vital Signs Vital signs: Initial Vital Signs Temperature 98.9 F 07/19/22 22:01 Temperature Source Temporal Artery Scan 07/19/22 22:01 Pulse Rate 75 07/19/22 22:01 Respiratory Rate 18 07/19/22 22:01 Blood Pressure 143/76 H 07/19/22 22:01 Blood Pressure Mean 98 07/19/22 22:01 Blood Pressure Position Sitting 07/19/22 22:01 Pulse Oximetry 95 07/19/22 22:01 Oxygen Delivery Method 07/19/22 22:01 Vital Signs Temperature 98.9 F 07/19/22 22:01 Pulse Rate 75 07/19/22 22:01 Respiratory Rate 18 07/19/22 22:01 Blood Pressure 143/76 H 07/19/22 22:01 Pulse Oximetry 95 07/19/22 22:01 Oxygen Delivery Method 07/19/22 22:01 Temperature 98.9 F 07/19/22 22:01 Pulse Rate 75 07/19/22 22:01 Respiratory Rate 18 07/19/22 22:01 Blood Pressure 143/76 H 07/19/22 22:01 Pulse Oximetry 95 07/19/22 22:01 Oxygen Delivery Method 07/19/22 22:01 MDM - URI/Sore Throat MDM Narrative Medical decision making narrative: I discussed with her that she seems to be nontoxic, I believe and I agree with her that the vomiting could be from the nasal discharge in she is swallowing it. She has a very benign examination today, but is consistent with both time and clinical sinusitis. I did talk to her that I think a COVID swab would be appropriate at this point. Even though she is vaccinated without the booster. Differential Diagnosis Differential diagnosis: Likely upper respiratory infection, otitis media, sinusitis, viral infection, bronchitis, influenza and pharyngitis Medical Records Attestation: I reviewed the patient's medical records. Lab Data Attestation: I reviewed the patient's lab results. Labs: Lab Results 07/19/22 Range/Units 22:25 SARS-CoV-2 (PCR) POSITIVE SARS-CoV-2 A (Negative) Influenza Type A (PCR) Negative PCR FLU A (Negative) Influenza Type B (PCR) Negative PCR FLU B (Negative) RSV (PCR) Negative PCR RSV (Negative) Discharge Plan Discharge Clinical Impression: COVID-19, Sinusitis Patient Disposition: Home w/ Parent or Adult Condition: Stable Instructions: Rhinosinusitis (DC), COVID-19 (Coronavirus Disease 2019) (ED) Additional Instructions: Home rest use of Zithromax as directed you may use her Zofran with this, I have given you a prescription for Paxil of it also, it is an antiviral that we use for COVID. It would be preferable if you try this, then 1. Side effect of this is diarrhea, fatigue, Avoid exposure of other individuals, Prescriptions: New Paxlovid (EUA) 300 mg (150 mg x 2)-100 mg tablets,dose pack See Rx Instructions .ROUTE .COMPLEX Qty: 30 0RF Rx Instructions: take TWO 150 mg tablets of nirmatrelvir with ONE 100 mg tablet of ritonavir twice daily for 5 days No Action ondansetron 4 mg tablet,disintegrating 4 mg PO Q6H Qty: 20 0RF Follow Up/Referrals: Provider,Not a Local [Primary Care Provider] - Stand Alone Forms: [facility] Info Inst[facility]
--- OUTSIDE RECORDS SUMMARY | 2022-07-19 22:58 | XMS_ITS | Encounter Summary ---
:1940 Author Organization [place] Address [facility] [place] [address] Care Team Providers Name Role Phone Julia White MD Primary Care Provider Reason for Visit Reason Comments Wrist right painful starting yesterday, having troubles using it now as the pain is worsening Encounter Details Date Type Department Care Team Description 09/01/2014 Office Visit [facility] Jordan Zhao Acute gou ty arthritis (Primary Dx); Clinic Sg Patrick MD Primary hyperparathyroidism (H); [place] [address] [address], [address] Vitamin D deficiency disease [place], [place] [phone] [id number] Social History Tobacco Use Types Packs/Day Years Used Date Smoking Tobacco: Never Smokeless Tobacco: Never Alcohol Use Standard Drinks/Week Comments No 0 (1 standard drink = 0.6 oz pure alcoho l) Sex Assigned at Date Recorded Not on file documented as of this encounter Last Filed Vital Signs Vital Sign Reading Time Taken Comments Blood Pressure 138/92 09/01/2014 6:58 AM WHARF LABORER Pulse 98 09/01/2014 6:58 AM WHARF LABORER Temperature 36.8 ??C (98.2 ??F) 09/01/2014 6:58 AM WHARF LABORER Respiratory Rate - - Oxygen Saturation 94% 09/01/2014 6:58 AM WHARF LABORER Inhaled Oxygen Concentration - - Weight - - Height 156.8 cm (5' 1.75) 09/01/2014 6:58 AM WHARF LABORER Body Mass Index - - documented in this encounter Progress Notes Jordan Zhao MD - 09/01/2014 6:58 AM CST HPI SUBJECTIVE: Lee Ann Herndon is a 74 year old female who presents to clinic today for the following health issues: Musculoskeletal problem/pain ?? Duration: 1-2 days ?? Description Location: Right Wrist ?? Intensity: severe ?? Accompanying signs and symptoms: none ?? History Previous similar problem: no Previous evaluation: none ?? Precipitating or alleviating factors: Trauma or overuse: no Aggravating factors include: pain is awful at all times, unable to use cane on right side ?? Therapies tried and outcome: rest/inactivity, heat, ice and NSAID - aleve Very painful R wrist, red, swollen. Started two nights ago, getting progressively worse. Uses cane, is very difficult to get around with it. No falls, changes in activity. No fever, some baseline tingling in fingers but no new weakness or change in sensation. Has a history of parathyroid disease. Is no t currently taking a vitamin D supplement. Was told she had pseudogout last March when having some similar pain in contralateral wrist. Tried 220mg Aleve this am, didn't help much. Meds reviewed. Does not smoke. Review of Systems Constitutional: Negative for fever and malaise/fatigue. HENT: Negative. Respiratory: Negative for shortness of breath. Cardiovascular: Negative for chest pain and palpitations. Musculoskeletal: Positive for joint pain. Physical Exam Constitutional: She is oriented to person, place, and time and well-developed, well-nourished, and in no distress. Eyes: Conjunctivae and EOM are normal. Cardiovascular: Normal rate, regular rhythm and normal heart sounds. Pulmonary/Chest: Effort normal and breath sounds normal. Musculoskeletal: She exhibits no edema. Right wrist: She exhibits decreased range of motion, tenderness and swelling. She exhibits no bony tenderness. Swelling and redness over radial aspect of extensor wrist, and around distal ulnar prominence. Neurological: She is alert and oriented to person, place, and time. Skin: Skin is warm and dry. Vitals reviewed. (274.01) Acute gouty arthritis (primary encounter diagnosis) Comment: Plan: predniSONE (DELTASONE) 20 MG tablet, Uric acid (252.01) Primary hyperparathyroidism Comment: has not been recheck in several months Plan: Basic metabolic panel (275.41) Hypocalcemia Comment: Plan: Basic metabolic panel (268.9) Vitamin D deficiency disease Comment: not currently taking supplement Plan: Vitamin D Deficiency RTC in 1w Jordan Zhao MD F LABORER documented in this encounter Nursing Notes Elinor Mcmillan CMA - 09/01/2014 7:02 AM CST Chief Complaint Patient presents with ??? Wrist right painful starting yesterday, having troubles using it now as the pain is worsening Initial BP 138/92 Pulse 98 Temp(Src) 98.2 ??F (36.8 ??C) (Oral) Ht 5' 1.75 (1.568 m) Wt SpO2 94% Estimated body mass index is 0.00 kg/(m^2) as calculated from the following: Height as of this encounter: 5' 1.75 (1.568 m). Weight as of this encounter: 0 lb (0 kg). BP completed using cuff size: large Elinor Mcmillan CMA F LABORER documented in this encounter Plan of Treatment Not on filedocumented as of this encounter Procedures Procedure Name Priority Date/Time Associated Diagnosis Comme nts VITAMIN D Routine 09/01/2014 7:27 Vitamin D deficiency Resu lts for this DEFICIENCY AM WHARF LABORER disease procedure are i n SCREENING the results section. URIC ACID Routine 09/01/2014 7:27 Acute gouty arthritis Res ults for this AM WHARF LABORER procedure are i n the results section. BASIC METABOLIC Routine 09/01/2014 7:27 Primary Results f or this PANEL AM WHARF LABORER Hyperparathyroid ism (H) procedure are in Hypocalcemia the results section. documented in this encounter Results (ABNORMAL) Vitamin D Deficiency (09/01/2014 7:27 AM WHARF LABORER) Component Value Ref Test Analysis Performed At [facility] Range Method Time Signature Vitamin D <13 30 - 75 [facility] Deficiency Season, race, dietary intake , and treatment affect the concentration of ug/L UNIVERSITY screening 40-bhsfils-Dfxoedn D. Value s may decrease during winter months and increase [facility] during summer months. Values less than 30 ug/L may indicate Vitamin D deficiency. Vitamin D determiniation is routinely performed by an immunoassay specific for 25 hydroxyvitamin D3. ??If an individual is on vitamin D2 (ergocalciferol) supplementation, please spe cify 25 [place] vitamin D2 and D3 level determination by LCMSMS test VITD23. (L) Specimen Anatomical Collection Method Collection Time Receive d Time (Source) Location / / Volume Laterality Blood specimen 09/01/2014 7:27 AM 014 7:28 (specimen) WHARF LABORER AM WHARF LABORER Jordan Zhao MD LAB - BLOOD ORDERABLES Performing Organization Address City/State/ZIP Code Phon e Number [address] [address] [facility] Uric acid (09/01/2014 7:27 AM WHARF LABORER) athologist Signature Uric Acid 5.3 2.6 - 6.0 [facility] mg/dL [place] Comment: Effective 04/29/2014, the reference range for this assay has changed to reflect new instrumentation/methodology. Specimen Anatomical Collection Method Collection Time Receive d Time (Source) Location / / Volume Laterality Blood specimen 09/01/2014 7:27 AM 014 7:28 (specimen) WHARF LABORER AM WHARF LABORER Jordan Zhao MD LAB - BLOOD ORDERABLES Performing Organization Address City/State/ZIP Code Phon e Number [facility] [address] [place] [address] [facility] [address] [place] [phone] Basic metabolic panel (09/01/2014 7:27 AM WHARF LABORER) athologist Signature Sodium 141 133 - 144 [facility] mmol/L [place] Potassium 4.6 3.4 - 5.3 [facility] mmol/L [place] Chloride 107 94 - 109 [facility] mmol/L [place] Carbon Dioxide 26 20 - 32 [facility] mmol/L [place] Anion Gap 8 3 - 14 [facility] mmol/L [place] Glucose 93 70 - 99 [facility] mg/dL [place] Comment: Effective 04/29/2014, the reference range for this assay has changed to reflect new instrumentation/methodology. Urea Nitrogen 21 7 - 30 mg/dL [facility] [place] Comment: Effective 04/29/2014, the reference range for this assay has changed to reflect new instrumentation/methodology. Creatinine 0.87 0.52 - 1.04 mg/dL [facility] GFR Estimate 64 >60 mL/min/1.7m2 [facility] Comment: Non GFR Calc GFR Estimate If Black 77 >60 mL/min/1.7m2 F [facility] Comment: GFR Calc Calcium 9.4 8.5 - 10.1 mg/dL [facility] [place] Comment: Effective 04/29/2014, the reference range for this assay has changed to reflect new instrumentation/methodology. Specimen Anatomical Collection Method Collection Time Receive d Time (Source) Location / / Volume Laterality Blood specimen 09/01/2014 7:27 AM 014 7:28 (specimen) WHARF LABORER AM WHARF LABORER Jordan Zhao MD LAB - BLOOD ORDERABLES Performing Organization Address City/State/[facility] Code Phon e Number [facility] [address] [place] [address] [facility] [address] [place], [place] [address] documented in this encounter Visit Diagnoses Diagnosis Acute gouty arthritis - Primary Acute gouty arthropathy Primary hyperparathyroidism (H) Primary hyperparathyroidism Hypocalcemia Vitamin D deficiency disease Unspecified vitamin D deficiency documented in this encounter Care Teams Corrections Specialist Relationship Specialty Start Date End Date Julia White MD PCP - General Family Practice 12/18/13 11/01/14 [address] [place] [address] documented as of this encounter
--- OUTSIDE RECORDS SUMMARY | 2022-07-19 22:58 | XMS_ITS | Encounter Summary ---
:1940 Author Organization [place] Address [facility] [place] [address] Care Team Providers Name Role Phone Julia White MD Primary Care Provider Reason for Visit Reason Onset Date Comments No Show 01/29/2016 Encounter Details Date Type Department Care Team Description 01/29/2016 Office Visit [facility] Julia White, NO SHOW (Primary Dx) Clinic [place] [id number] [place] [phone] [id number] Social History Tobacco Use Types Packs/Day Years Used Date Smoking Tobacco: Never Smokeless Tobacco: Never Alcohol Use Standard Drinks/Week Comments No 0 (1 standard drink = 0.6 oz pure alcoho l) Sex Assigned at Date Recorded Not on file documented as of this encounter Progress Notes Julia Figueroa MD - 01/29/2016 9:15 AM CDT This patient was a no show for this scheduled appointment. documented in this encounter Plan of Treatment Not on filedocumented as of this encounter Visit Diagnoses Diagnosis NO SHOW - Primary documented in this encounter Care Teams Facility Mechanic Relationship Specialty Start Date End Date Julia White MD PCP - General Family Practice 01/29/16 02/09/16 [address] [place] [address] documented as of this encounter
--- OUTSIDE RECORDS SUMMARY | 2022-07-19 22:58 | XMS_ITS | Encounter Summary ---
:1940 Author Organization [place] Address [address] [place] [address]. [place] [address] Care Team Providers Name Role Phone Julia White MD Primary Care Provider Reason for Visit Reason Onset Date Comments Panel Management 09/17/2014 Encounter Details Date Type Department Care Team Description 09/17/2014 Telephone [facility] Fely Denton Panel Management S[place] Gordillo [place] [id number] [place] [address] [address] [place] [address] [place] [phone] Social History Tobacco Use Types Packs/Day Years Used Date Smoking Tobacco: Never Smokeless Tobacco: Never Alcohol Use Standard Drinks/Week Comments No 0 (1 standard drink = 0.6 oz pure alcoho l) Sex Assigned at Date Recorded Not on file documented as of this encounter Miscellaneous Notes Telephone Encounter - Natividad Duncan CMA - 09/17/2014 11:33 AM CST Panel Management Review Date of last visit with a [facility] provider: Dr. Zhao on 09/01/14. Date of next visit with a [facility] provider: Dr. Denton on 12/03/14. Problem List Patient Active Problem List Diagnosis ??? EDEMA ??? JOINT PAIN-LOWER LEG ??? GENERAL OSTEOARTHROSIS ??? Anxiety ??? Mild Major Depression ??? CARDIOVASCULAR SCREENING; LDL GOAL LESS THAN 160 ??? GERD (GASTROESOPHAGEAL REFLUX DISEASE) ??? Obesity ??? Health Assisted ??? HTN, goal below 140/90 ??? Primary hyperparathyroidism ??? Hypocalcemia ??? 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 Vitamin D deficiency disease ??? Lumbago ??? Gout, unspecified Health Maintenance List Health Maintenance Topic Date Due ??? DEXA SCAN SCREENING (SYSTEM ASSIGNED) 2007 ??? MAMMO SCREEN Q2 YR (SYSTEM ASSIGNED) 01/18/2013 ??? INFLUENZA VACCINE (SYSTEM ASSIGNED) 06/01/2014 ??? PHQ-9 Q6 MONTHS (NO INBASKET) 12/03/2014 ??? FALL RISK ASSESSMENT 06/05/2015 ??? DEPRESSION ACTION PLAN Q1 YR (NO INBASKET) 06/05/2015 ??? ADVANCE DIRECTIVE PLANNING Q5 YRS (NO INBASKET) 03/20/2016 ??? COLONOSCOPY Q3 YR INBASKET MESSAGE 05/30/2016 ??? TETANUS IMMUNIZATION (SYSTEM ASSIGNED) 02/27/2018 ??? LIPID SCREEN Q5 YR FEMALE (SYSTEM ASSIGNED) 05/26/2018 ??? PNEUMOVAX ([facility] ASSIGNED) Completed For diabetic patients with hyperlipidemia, only choose diabetes. Patient has the following on her problem list: Depression / Dysthymia review PHQ-9 SCORE ([facility]) 02/14/2012 05/26/2013 12/08/2013 Total Score 2 14 0 Patient is due for: PHQ9 and RUDDY-7. Hypertension Review Blood pressure goal on problem list: <140/90 Last three blood pressure readings: BP Readings from Last 3 Encounters: 09/01/14 138/92 06/05/14 130/88 04/28/14 152/100 Blood pressure: Failed Composite cancer screening Chart review shows that this patient is due/due soon for the following Mammogram and DEXA Scan No results found for this basename: pap Past Surgical History Procedure Laterality Date ??? C nonspecific procedure s/p x 2, spAb x 1 ??? C nonspecific procedure s/p appendectomy ??? C nonspecific procedure s/p D&C after spAb ??? Surgical history of - hernia repair, rt inguinal ??? Surgical history of - 2006 knee replacement BOTH sides - [facility] ??? Colonoscopy 05/30/13 polyps found - repeat in 3 years ??? Surgical history of - 2009 left ankle surgery - [facility] ??? Appendectomy ??? Hernia repair ??? Orthopedic surgery bilat knee replaclement-- ankle repair ??? Parathyroidectomy 01/26/2014 Procedure: PARATHYROIDECTOMY; Surgeon: Vonnie Murphy MD; Location: [facility] OR Is hysterectomy listed in surgical history? No Is mastectomy listed in surgical history? No Tobacco History History Smoking status ??? Never Smoker Smokeless tobacco ??? Never Used Summary: Patient is due/failing the following: DEXA Scan and MAMMOGRAM Action needed: Patient needs office visit for a mammogram and DEXA Scan. Type of outreach: Sent letter. Questions for provider review: None Please indicate office visit, lab, MTM, or nurse appt if needed. Indicate fasting or not fasting. *NON-FASTING* Natividad Duncan CMA Chart routed to Provider . UIT BREAKER SUPERVISOR documented in this encounter Plan of Treatment Not on filedocumented as of this encounter Visit Diagnoses Not on filedocumented in this encounter Care Teams Warehouse Order Selector Relationship Specialty Start Date End Date Julia White MD PCP - General Family Practice 12/18/13 11/01/14 [address] [place] [address] documented as of this encounter
--- OUTSIDE RECORDS SUMMARY | 2022-07-19 22:58 | XMS_ITS | Encounter Summary ---
:1940 Author Organization [place] Address [address] [place] [address] Care Team Providers Name Role Phone Korin Gutierrez DO Primary Care Provider Reason for Visit Reason Onset Date Comments Panel Management 04/21/2016 bp Encounter Details Date Type Department Care Team Description 04/21/[address] [facility] Korin Gutierrez Pan el Management (bp) Clinic [address] [address] [facility] [place] [phone] [place] [address] (Wo rk) Social History Tobacco Use Types Packs/Day Years Used Date Smoking Tobacco: Never Smokeless Tobacco: Never Alcohol Use Standard Drinks/Week Comments No 0 (1 standard drink = 0.6 oz pure alcoho l) Sex Assigned at Date Recorded Not on file documented as of this encounter Miscellaneous Notes Telephone Encounter - Lizzette Venegas Corry, NUMERICAL CONTROL MACHINE TOOL OPERATOR - 04/21/2016 10:09 AM CDT Panel Management Review Patient has the following on her problem list: Hypertension Last three blood pressure readings: BP Readings from Last 3 Encounters: 04/12/16 140/82 03/09/16 154/90 02/10/16 168/92 Blood pressure: Failed HTN Guidelines: Age 18-59 BP range: Less than 140/90 Age 60-85 with Diabetes: Less than 140/90 Age 60-85 without Diabetes: less than 150/90 Composite cancer screening Chart review shows that this patient is due/due soon for the following Mammogram Summary: Patient is due/failing the following: BP CHECK and MAMMOGRAM Action needed: Patient needs nurse only appointment. Type of outreach: Phone, spoke to patient. WAS VERY ANGRY AND DOES NOT WANT TO SEE PCP ANYMORE, WOULD NOT CONSULT WITHME AT ALL Questions for provider review: None Lizzette Venegas CMA Chart routed to NONE . documented in this encounter Plan of Treatment Not on filedocumented as of this encounter Visit Diagnoses Not on filedocumented in this encounter Additional Health Concerns Assessment Noted Time PHQ-9 Depression Total Score: 03/10/2016 7:14 AM CD T documented as of this encounter Care Teams Media Director Relationship Specialty Start Date End Date Korin Gutierrez DO PCP - General Family Practice 03/09/16 06/18/16 documented as of this encounter
--- OUTSIDE RECORDS SUMMARY | 2022-07-19 22:58 | XMS_ITS | Encounter Summary ---
:1940 Author Organization [facility] Address [address] [place] [address]. [place] [address] Care Team Providers Name Role Phone Julia White MD Primary Care Provider Reason for Visit Reason Onset Date Comments ER F/U 04/15/2014 ER f/u 04/14/14 Subc onjunctival Haemorrhage, Htn Encounter Details Date Type Department Care Team Description 04/15/2014 Telephone [facility] Julia White, ER F/U (ER f/u 04/14/14 Clinic Adri Reynoso MD Subconjunctival [address] [place] [address] Haemorrhage, Htn) [place] [phone] Social History Tobacco Use Types Packs/Day Years Used Date Smoking Tobacco: Never Smokeless Tobacco: Never Alcohol Use Standard Drinks/Week Comments No 0 (1 standard drink = 0.6 oz pure alcoho l) Sex Assigned at Date Recorded Not on file documented as of this encounter Miscellaneous Notes Telephone Encounter - Melly Esposito RN - 04/16/2014 9:01 AM CDT ED/Discharge Protocol Hi, my name is Melly Esposito, a registered nurse, and I am calling on behalf of Dr. Zhao's officeat [facility]. I am calling to follow up and see how things are going for you after your recent visit. I see that you were in the (ER/UC/IP) on 04/14/14. How are you doing now that you are home? Looks better today No pain or itching currently Is patient experiencing symptoms that may require a hospital visit? no Discharge Instructions Let's review your discharge instructions. What is/are the follow-up recommendations? Pt. Response: Will follow up with eye doctor. Would like to find a New PCP. Were you instructed to make a follow-up appointment? Pt. Response: Yes. Has appointment been made? No. Can I help you schedule that appointment? patient wants to wait a few more days and was told it could take 2-3 weeks to clear up When you see the provider, I would recommend that you bring your discharge instructions with you. Medications How many new medications are you on since your hospitalization/ED visit? 0-1 How many of your current medicines changed (dose, timing, name, etc.) while you were in the hospital/ED visit? 0-1 Do you have questions about your medications? No Were you newly diagnosed with heart failure, COPD, diabetes or did you have a heart attack? No For patients on insulin: Did you start on insulin in the hospital or did you have your insulin dosechanged? No Medication reconciliation completed? Yes Was MTM referral placed (*Make sure to put transitions as reason for referral)? No Call Summary Do you have any questions or concerns about your condition or care plan at the moment? No Triage nurse advice given: Advised to follow up as needed. 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 Even if the clinic is not open, triage nurses are available / tohelp you. We would like you to know that our clinic has extended hours (provide information). We also have urgent care (provide details on closest location and hours/contact info) Thank you for your time and take care! Melly Esposito RN, BSN Telephone Encounter - Senia Dougherty - 04/15/2014 3:46 PM CDT Please call patient for ER f/u 04/14/14 Subconjunctival Haemorrhage, , Htn. Senia Dougherty. Hearing Therapist. documented in this encounter Plan of Treatment Not on filedocumented as of this encounter Visit Diagnoses Not on filedocumented in this encounter Care Teams Television Director Relationship Specialty Start Date End Date Julia White MD PCP - General Family Practice 12/18/13 11/01/14 [address] [place] [address] documented as of this encounter
--- OUTSIDE RECORDS SUMMARY | 2022-07-19 22:58 | XMS_ITS | Encounter Summary ---
:1940 Author Organization [place] Address [facility] [place] [address] Care Team Providers Name Role Phone Julia White MD Primary Care Provider Reason for Visit Reason Comments Clinic Care Coordination - Initial Chart review for ED Follow up for 04/14/14 Encounter Details Date Type Department Care Team Description 04/17/2014 Documentation Only [facility] Julia White danna [facility] - ZENOBIA Roberson MD Coordination - MANAGEMENT DEPT [id number] [address] Initial (Chart ... [address] [address] [place] [address] Social History Tobacco Use Types Packs/Day Years Used Date Smoking Tobacco: Never Smokeless Tobacco: Never Alcohol Use Standard Drinks/Week Comments No 0 (1 standard drink = 0.6 oz pure alcoho l) Sex Assigned at Date Recorded Not on file documented as of this encounter Progress Notes Kacie Ramos LSW - 04/17/2014 3:34 PM CDT Clinic Care Coordination Assessment Chart reviewed for ED follow up for 04/14/14. Patrol Driver notes that patient received clinic follow up on 04/15/14. No case management follow up needed at this time. Patient was assessed by this ticket writer on 04/08/14 following her previous ED visit. PCP: Julia Figueroa Referral Source: ED list Utilization: Multiple ED visits. Patient is [facility] member. Plan: Patient would like to change PCP. Patient will make follow up appointment with any provider if concerns do not improve. JAZMIN Winters [facility] [phone] April 17, 2014 documented in this encounter Plan of Treatment Not on filedocumented as of this encounter Visit Diagnoses Not on filedocumented in this encounter Care Teams Clerical Supervisor Relationship Specialty Start Date End Date Julia White MD PCP - General Family Practice 12/18/13 11/01/14 [address] [place] [address] documented as of this encounter
--- OUTSIDE RECORDS SUMMARY | 2022-07-19 22:58 | XMS_ITS | Encounter Summary ---
:1940 Author Organization [place] Address [address] [facility] [facility] [place] [address] Care Team Providers Name Role Phone Julia White MD Primary Care Provider Reason for Referral [facility] - Closed Specialty Diagnoses / Procedures Referred By Contact Refer red To Contact Diagnoses LBP (low back pain) Fely Denton, [facility] [id number] [place] [address] [place] [address] Phone: [phone] Referral ID Status Reason Start Date Expiration Date Visits Requ ested Visits Authorized [id number] Closed 04/28/2014 10/25/2014 1 1 Reason for Visit Reason Comments Back Pain Low-Mid back pain since arou nd the end of December. Encounter Details Date Type Department Care Team Description 04/28/2014 Office Visit [facility] Fely Denton LBP (lo w back pain) (Primary Dx); Clinic Sg Gordillo MD HTN, goal below 140/90 [address] [place] [address] [facility], [address] [place] [address] [place], [place] [phone] (Wo rk) [address] [phone] Social History Tobacco Use Types Packs/Day Years Used Date Smoking Tobacco: Never Smokeless Tobacco: Never Alcohol Use Standard Drinks/Week Comments No 0 (1 standard drink = 0.6 oz pure alcoho l) Sex Assigned at Date Recorded Not on file documented as of this encounter Last Filed Vital Signs Vital Sign Reading Time Taken Comments Blood Pressure 152/100 04/28/2014 9:50 AM CDT Pulse 92 04/28/2014 9:50 AM CDT Temperature 37.1 ??C (98.7 ??F) 04/28/2014 9:50 AM CDT Respiratory Rate 16 04/28/2014 9:50 AM CDT Oxygen Saturation - - Inhaled Oxygen Concentration - - Weight 114.7 kg (252 lb 12.8 oz) 04/28/2014 9:50 AM CDT Height 156.8 cm (5' 1.75) 04/28/2014 9:50 AM CDT Body Mass Index 46.61 04/28/2014 9:50 AM CDT documented in this encounter Progress Notes Fely Denton MD - 04/28/2014 9:55 AM CDT SUBJECTIVE: Lee Ann Herndon is a 74 year old female who presents to clinic today for the following health issues: Seen in ED, right eye with redness, no pain, told to follow up if not improving, she can see fine, is improving now, has not seen by eye doctor Back Pain ?? Onset: January Specific cause: None Parathyroid surgery in December, started in January, gradual, mid back Uses cane due to ankle surgery yrs ago, left ankle is weak and has to use a cane due to this. ?? Description: Location of pain: low back both and middle of back both Character of pain: stabbing Pain radiation:none ?? Intensity: severe, 10/10 ?? Accompanying Signs & Symptoms: Fever: no Numbness or weakness in legs: no Dysuria or Hematuria: no Bowel or bladder incontinence: no ?? History: Any injury (lifting, bending, twisting): no Work Injury: no History of back problems: no prior back problems Any previous MRI or X-rays: NO Due to pneumonia scar, CT scan of lungs done in past Any history of back surgery: no Any cancer history: no ?? Precipitating factors: leaning over, sharp shooting pain that is fleeting ?? Mild scoliosis Worsened by: Bending. ?? Alleviating factors: Improved by: heat AND cold ?? Therapies Tried and outcome: cold therapy and heat therapy-has NOT helped. Patient presents for evaluation of hypertension. She indicates that she is feeling well and denies any symptoms referable to her elevated blood pressure. Specifically denies chest pain, palpitations, dyspnea, orthopnea, PND or peripheral edema. Current medication regimen is as listed below. Patient denies any side effects of medication, but stopped lisinopril months ago, no follow up done. Problem list and histories reviewed & adjusted, as indicated. Additional history: as documented PROBLEMS TO ADD ON... Problem list, Medication list, Allergies, and Medical/Social/Surgical histories reviewed in [facility] andupdated as appropriate. ROS: C: NEGATIVE for fever, chills, change in weight E/M: NEGATIVE for ear, mouth and throat problems R: NEGATIVE for significant cough or SOB CV: NEGATIVE for chest pain, palpitations or peripheral edema OBJECTIVE: BP 152/100 Pulse 92 Temp(Src) 98.7 ??F (37.1 ??C) (Oral) Resp 16 Ht 5' 1.75 (1.568 m) Wt 252 lb 12.8 oz (114.669 kg) BMI 46.64 kg/m2 Body mass index is 46.64 kg/(m^2). GENERAL: healthy, alert, well nourished, well hydrated, no distress HENT: ear canals- normal; TMs- normal; Nose- normal; Mouth- no ulcers, no lesions NECK: no tenderness, no adenopathy, no asymmetry, no masses, no stiffness; thyroid- normal to palpation RESP: lungs clear to auscultation - no rales, no rhonchi, no wheezes CV: regular rates and rhythm, normal S1 S2, no S3 or S4 and no murmur, no click or rub - ABDOMEN: soft, no tenderness, no hepatosplenomegaly, no masses, normal bowel sounds MS: extremities- no gross deformities noted, no edema SKIN: no suspicious lesions, no rashes ASSESSMENT/PLAN: (724.2) LBP (low back pain) (primary encounter diagnosis) Comment: on going for months, suspect muscle, recommended urine sample testing, patient refused today, says she knows it is not her kidneys, if something changes, will follow up for this test Plan: [facility] PT, HAND, AND CHIROPRACTIC REFERRAL, methocarbamol (ROBAXIN) 500 MG tablet, DISCONTINUED: methocarbamol (ROBAXIN) 500 MG tablet Potential medication side effects were discussed with the patient; let me know if any occur. (401.9) HTN, goal below 140/90 Comment: Potential medication side effects were discussed with the patient; let me know if any occur. Plan: amLODIPine (NORVASC) 5 MG tablet Follow up for BP check in 1-2 wks Counseling regarding treating high BP and when and how was most of this visit, 30 min appointment> 50% in counseling Follow up with Provider - 1 month, or after PHYSICAL THERAPY finished Fely Denton MD [facility] documented in this encounter Nursing Notes Natividad Duncan CMA - 04/28/2014 9:54 AM CDT Chief Complaint Patient presents with ??? Back Pain Low-Mid back pain since around the end of December. Initial BP 152/100 Pulse 92 Temp(Src) 98.7 ??F (37.1 ??C) (Oral) Resp 16 Ht 5' 1.75 (1.568 m) Wt 252 lb 12.8 oz (114.669 kg) BMI 46.64 kg/m2 Estimated body mass index is 46.64 kg/(m^2) as calculated from the following: Height as of this encounter: 5' 1.75 (1.568 m). Weight as of this encounter: 252 lb 12.8 oz (114.669 kg). BP completed using cuff size large right arm. Natividad Duncan CMA documented in this encounter Plan of Treatment Scheduled Referrals Name Type Priority Associated Diagnoses Order S chedule [facility] PT, HAND, AND Referral Routine LBP (low back pain) Ord ered: 04/28/2014 CHIROPRACTIC REFERRAL documented as of this encounter Visit Diagnoses Diagnosis LBP (low back pain) - Primary Lumbago HTN, goal below 140/90 Unspecified essential hypertension documented in this encounter Care Teams Joint Filler Relationship Specialty Start Date End Date Julia White MD PCP - General Family Practice 12/18/13 2 [address] [place] [address] documented as of this encounter
--- OUTSIDE RECORDS SUMMARY | 2022-07-19 22:58 | XMS_ITS | Encounter Summary ---
:1940 Author Organization [place] Address [facility] [place] [address] Care Team Providers Name Role Phone Fely Denton MD Primary Care Provider [phone] Reason for Visit Reason Comments Hypertension Refill Request Encounter Details Date Type Department Care Team Description 01/22/2015 Office Visit [facility] Fely Denton HTN, go al below 140/90 (Primary Dx); Clinic Sg Gordillo MD Mild major depression (H); [place] [address] [facility] Asymptomatic postmenopausal status (age- related) (natural); [address], [address] [place], [place] Visit [place] [address] Social History Tobacco Use Types Packs/Day Years Used Date Smoking Tobacco: Never Smokeless Tobacco: Never Alcohol Use Standard Drinks/Week Comments No 0 (1 standard drink = 0.6 oz pure alcoho l) Sex Assigned at Date Recorded Not on file documented as of this encounter Last Filed Vital Signs Vital Sign Reading Time Taken Comments Blood Pressure 138/88 01/22/2015 2:45 PM CDT Pulse 79 01/22/2015 11:41 AM CDT Temperature 36.7 ??C (98 ??F) 01/22/2015 11:41 AM CDT Respiratory Rate 16 01/22/2015 11:41 AM CDT Oxygen Saturation 96% 01/22/2015 11:41 AM CDT Inhaled Oxygen Concentration - - Weight - - Height - - Body Mass Index - - documented in this encounter Progress Notes Fely Denton MD - 01/22/2015 11:29 AM CDT HPI SUBJECTIVE: Lee Ann Herndon is a 74 year old female who presents to clinic today for the following health issues: Hypertension Follow-up ?? Outpatient blood pressures are being checked at home. Results are 133-78. ?? Low Salt Diet: no added salt ?? norvasc 5mg, since March, rare swelling in the ankles, better by morning, is only side effects ?? Never tried anyother medications. ?? Really wanting 1 yr refills Depression and Anxiety Follow-Up ?? Status since last visit: No change ?? Other associated symptoms:None ?? Complicating factors: ?? Significant life event: Yes- Grandson had medical concerns. ?? Current substance abuse: None ?? Has been taking zoloft 25mg, but sometimes has been taking 50mg to help with her stress PHQ-9 SCORE ([facility]) 02/14/2012 05/26/2013 12/08/2013 Total Score 2 14 0 RUDDY-7 SCORE 05/26/2013 12/08/2013 Total Score 13 0 PHQ-9 Slovenian PHQ-9 Any Language GAD7 ?? Amount of exercise or physical activity: None ?? Problems taking medications regularly: No ?? Medication side effects: none ?? Diet: regular (no restrictions) PROBLEMS TO ADD ON... Problem list and histories reviewed & adjusted, as indicated. Additional history: as documented BP Readings from Last 3 Encounters: 01/22/15 144/90 09/01/14 138/92 06/05/14 130/88 Wt Readings from Last 3 Encounters: 04/28/14 252 lb 12.8 oz (114.669 kg) 01/26/14 260 lb 2.3 oz (118 kg) 01/26/14 260 lb 2.3 oz (118 kg) Labs reviewed in [facility] Problem list, Medication list, Allergies, and Medical/Social/Surgical histories reviewed in [facility] andupdated as appropriate. ROS: Constitutional, HEENT, cardiovascular, pulmonary, gi and gu systems are negative, except as otherwise noted. OBJECTIVE: BP 144/90 Pulse 79 Temp(Src) 98 ??F (36.7 ??C) (Oral) Resp 16 SpO2 96% There is no weight on file to calculate BMI. GENERAL: healthy, alert and no distress EYES: Eyes grossly normal to inspection, PERRL and conjunctivae and sclerae normal HENT: ear canals and TM's normal, nose and mouth without ulcers or lesions NECK: no adenopathy, no asymmetry, masses, or scars and thyroid normal to palpation RESP: lungs clear to auscultation - no rales, rhonchi or wheezes CV: regular rate and rhythm, normal S1 S2, no S3 or S4, no murmur, click or rub, no peripheral edemaand peripheral pulses strong MS: no gross musculoskeletal defects noted, no edema Diagnostic Test Results: none ASSESSMENT/PLAN: Hypertension; slightly worsened Associated with the following complications: None Plan: Medications: Raise the dose to 10mg norvasc, patient declined adding on a med 1. HTN, goal below 140/90 Recheck BP at home, and follow up 6 months(pt wants to be seen yrly) - amLODIPine (NORVASC) 10 MG tablet; Take 1 tablet (10 mg) by mouth daily Dispense: 90 tablet; Refill: 1 2. Mild major depression Will raise dose to 50mg, follow up 6 month - sertraline (ZOLOFT) 50 MG tablet; Take 1 tablet (50 mg) by mouth daily Dispense: 90 tablet; Refill: 1 3. Asymptomatic postmenopausal status (age-related) (natural) Patient refused dexa 4. Visit for screening mammogram Patient refused mammogram, but understands I will keep reminding her Work on weight loss Regular exercise Fely Denton MD [facility] Physical Exam documented in this encounter Nursing Notes Natividad Dunn CMA - 01/22/2015 11:44 AM CDT Chief Complaint Patient presents with ??? Hypertension ??? Refill Request Initial BP 144/90 Pulse 79 Temp(Src) 98 ??F (36.7 ??C) (Oral) Resp 16 SpO2 96% Estimated body mass index is 0.00 kg/(m^2) as calculated from the following: Height as of 14: 5' 1.75 (1.568 m). Weight as of 09/01/14: 0 lb (0 kg). BP completed using cuff size large RIGHT arm. Patient declined weight and height. Natividad Dunn CMA documented in this encounter Miscellaneous Notes Addendum Note - Natividad Dunn CMA - 01/22/2015 3:34 PM CDT Addended by: NATIVIDAD DUNN on: 01/22/2015 03:34 PM Modules accepted: Orders, SmartSet Addendum Note - Natividad Dunn CMA - 01/22/2015 3:27 PM CDT Addended by: NATIVIDAD DUNN on: 01/22/2015 03:27 PM Modules accepted: SmartSet documented in this encounter Plan of Treatment Not on filedocumented as of this encounter Visit Diagnoses Diagnosis HTN, goal below 140/90 - Primary Unspecified essential hypertension Mild major depression (H) Major depressive disorder, single episod e, mild Asymptomatic postmenopausal status (age- related) (natural) Visit for screening mammogram Other screening mammogram documented in this encounter Care Teams Machinist Apprentice Wood Relationship Specialty Start Date End Date Fely Denton MD PCP - General Family Practice 11/02/14 01/28/16 documented as of this encounter
--- OUTSIDE RECORDS SUMMARY | 2022-07-19 22:58 | XMS_ITS | Encounter Summary ---
:1940 Author Organization [place] Address [facility] [place] [address] Care Team Providers Name Role Phone Korin Gutierrez DO Primary Care Provider Reason for Visit Reason Onset Date Comments Panel Management 03/20/2016 Encounter Details Date Type Department Care Team Description 03/20/2016 Telephone [facility] Fely Denton Panel Management Sg Gordillo [place] [id number] [place] [address] [address] [place] [address] [place] [address] [phone] Social History Tobacco Use Types Packs/Day Years Used Date Smoking Tobacco: Never Smokeless Tobacco: Never Alcohol Use Standard Drinks/Week Comments No 0 (1 standard drink = 0.6 oz pure alcoho l) Sex Assigned at Date Recorded Not on file documented as of this encounter Miscellaneous Notes Telephone Encounter - Linda Oconnor - 04/14/2016 2:12 PM CDT Patient established care with Dr Ferrer at in March 2016 Telephone Encounter - Natividad Duncan CMA - 03/20/2016 2:45 PM CDT Panel Management Review Patient has the following on her problem list: Depression / Dysthymia review PHQ-9 SCORE 12/08/2013 01/22/2015 03/09/2016 Total Score 0 3 - Total Score - - 10 Patient is due for: None Hypertension Last three blood pressure readings: BP Readings from Last 3 Encounters: 03/09/16 154/90 02/10/16 168/92 01/29/16 126/71 Blood pressure: Failed HTN Guidelines: Age 18-59 BP range: Less than 140/90 Age 60-85 with Diabetes: Less than 140/90 Age 60-85 without Diabetes: less than 150/90 Composite cancer screening Chart review shows that this patient is due/due soon for the following Mammogram and Fecal Colorectal (FIT) Summary: Patient is due/failing the following: BP CHECK, FIT and MAMMOGRAM Action needed: Patient needs office visit for a mammogram and atient needs non-fasting lab only appointment Type of outreach: Sent [employer] message. Questions for provider review: None Natividad Duncan CMA Chart routed to Care Team . documented in this encounter Plan of Treatment Not on filedocumented as of this encounter Visit Diagnoses Not on filedocumented in this encounter Additional Health Concerns Assessment Noted Time PHQ-9 Depression Total Score: 10 03/10/2016 7:14 AM CD T documented as of this encounter Care Teams Drawing Box Tender Relationship Specialty Start Date End Date Korin Gutierrez DO PCP - General Family Practice 03/09/16 06/18/16 documented as of this encounter
--- OUTSIDE RECORDS SUMMARY | 2022-07-19 22:58 | XMS_ITS | Encounter Summary ---
:1940 Author Organization [place] Address [address] [place] [address] Care Team Providers Name Role Phone Julia White MD Primary Care Provider Encounter Details Date Type Department Care Team Description 04/25/2014 Telephone [facility] Allyson Bowers, RN [id number] [address] Social History Tobacco Use Types Packs/Day Years Used Date Smoking Tobacco: Never Smokeless Tobacco: Never Alcohol Use Standard Drinks/Week Comments No 0 (1 standard drink = 0.6 oz pure alcoho l) Sex Assigned at Date Recorded Not on file documented as of this encounter Miscellaneous Notes Telephone Encounter - Allyson Bowers RN - 04/25/2014 8:06 PM CDT Call Type: Triage Call Presenting Problem: I have pain in my back and abd for past 4 days. Not constantly bad. I can feel it most of the time, but movement always makes it worse. It's often a 10/10 scale with movement. Triage Note: Guideline Title: Abdominal Pain Recommended Disposition: See ED Immediately Original Inclination: Would have called clinic Override Disposition: Intended Action: Patient does not know Physician Contacted: No Generalized or localized pain made worse with cough, movement, or standing up straight ? YES Pain described as deep, boring, or tearing ? NO Swallowed alkali or button battery ? NO Injury to abdomen ? NO Following a therapeutic OR elective ? NO New or worsening signs and symptoms that may indicate shock ? NO AND injury to abdomen ? NO AND abdominal pain/cramping OR back pain ? NO , less than 20 weeks gestation AND vaginal bleeding ? NO , more than 20 weeks gestation AND vaginal bleeding ? NO , gestation less than 20 weeks AND signs of labor ? NO , 20-37 weeks gestation AND signs of labor ? NO , gestation more than 37 weeks AND signs of labor ? NO AND heartburn ? NO Following ingestion of toxic or caustic substance ? NO Over 50 years of age AND new onset (first episode) unbearable back or abdominal pain ? NO Known abdominal aneurysm (swollen or ballooning aorta) AND sudden onset of unbearable abdominal pain ? NO Unbearable abdominal/pelvic pain ? NO Generalized abdominal pain that progresses to localized pain AND any of the following: loss of appetite, vomiting starting after pain, any fever, OR unable to carry out normal activities ? NO Food or foreign body feels stuck in esophagus. ? NO Recent childbirth or miscarriage ? NO GI bleeding, more than streaks or scant amount of blood or passing black tarry stool(s) ? NO Swallowed sharp object (pin, needle, piece of glass) OR an object longer than 2 inches (5 cm) or wider than 3/4 inch (2 cm) wide ? NO Chest discomfort associated with shortness of breath, sweating, odd heartbeats or different heart rate, nausea, vomiting, lightheadedness, or fainting lasting 5 or more minutes now or within the last hour ? NO Chest pain spreading to the shoulders, neck, jaw, in one or both arms, stomach or back lasting 5 or more minutes now or within the last hour. Pain is NOT associated with taking a deep breath or a productive cough, movement, or touch to a localized area. ? NO Pressure, fullness, squeezing sensation or pain anywhere in the chest lasting 5 or more minutes now or within the last hour. Pain is NOT associated with taking a deep breath or a productive cough, movement, or touch to a localized area on the chest. ? NO Physician Instructions: Care Advice: Another adult should drive. Pain medication or laxatives should not be taken until symptoms are evaluated. Do not eat or drink anything until evaluated by provider. documented in this encounter Plan of Treatment Not on filedocumented as of this encounter Visit Diagnoses Not on filedocumented in this encounter Care Teams Brewmaster Relationship Specialty Start Date End Date Julia White MD PCP - General Family Practice 12/18/13 11/01/14 [address] [place] [address] documented as of this encounter
--- OUTSIDE RECORDS SUMMARY | 2022-07-19 22:58 | XMS_ITS | Encounter Summary ---
:1940 Author Organization [place] Address [address] [facility] [place] [address] Care Team Providers Name Role Phone Julia White MD Primary Care Provider Reason for Visit Reason Onset Date Comments Formulary Issue 04/28/2014 Robaxin not covered- -needs prior auth Encounter Details Date Type Department Care Team Description 04/28/2014 Telephone [facility] Fely Denton Formula ry Issue Clinic Sg Gordillo MD (Robaxin not [address] [facility], [address] [place] [address] covered--needs prior [address] [place] [address] auth) [place], [place] [phone] (Wo rk) [id number] [phone] Social History Tobacco Use Types Packs/Day Years Used Date Smoking Tobacco: Never Smokeless Tobacco: Never Alcohol Use Standard Drinks/Week Comments No 0 (1 standard drink = 0.6 oz pure alcoho l) Sex Assigned at Date Recorded Not on file documented as of this encounter Miscellaneous Notes Telephone Encounter - Siri Gonzales RN - 04/28/2014 2:53 PM CDT Patient notified. She states that Flexeril also requires a prior auth but it only costs $4 so she isjust going to pay for it. Siri Gonzales RN Telephone Encounter - Fely Denton MD - 04/28/2014 2:05 PM CDT Changed to flexeril Telephone Encounter - Siri Gonzales, ERICKSON - 04/28/2014 12:07 PM CDT Patient calling stating she was just seen and given an rx for Robaxin and her insurance does not cover it. States it needs a prior auth. Patient would like an alternative medication prescribed rather than wait for a prior auth. Please send alternative medication to pharmacy. [phone] Siri Gonzales RN documented in this encounter Plan of Treatment Not on filedocumented as of this encounter Visit Diagnoses Diagnosis LBP (low back pain) - Primary Lumbago Breast screening Breast screening, unspecified documented in this encounter Care Teams Meter/Relay Craftsman Relationship Specialty Start Date End Date Julia White MD PCP - General Family Practice 12/18/13 11/01/14 [address] [place] [address] documented as of this encounter
--- OUTSIDE RECORDS SUMMARY | 2022-07-19 22:58 | XMS_ITS | Encounter Summary ---
:1940 Author Organization [facility] Address [address] [place] [address] Care Team Providers Name Role Phone Fely Denton MD Primary Care Provider [phone] Reason for Visit Reason Comments Leg Swelling Encounter Details Date Type Department Care Team Description [facility] Emergency Dep t lower extremity [address] [place] [id number] [phone] (Wo rk) Social History Tobacco Use Types Packs/Day Years Used Date Smoking Tobacco: Never Smokeless Tobacco: Never Alcohol Use Standard Drinks/Week Comments No 0 (1 standard drink = 0.6 oz pure alcoho l) Sex Assigned at Date Recorded Not on file documented as of this encounter Last Filed Vital Signs Vital Sign Reading Time Taken Comments Blood Pressure 125/80 03/13/2015 6:18 PM CDT Pulse 94 03/13/2015 6:18 PM CDT Temperature 36.6 ??C (97.9 ??F) 03/13/2015 4:34 PM CDT Respiratory Rate 20 03/13/2015 6:18 PM CDT Oxygen Saturation 97% 03/13/2015 6:18 PM CDT Inhaled Oxygen Concentration - - Weight - - Height - - Body Mass Index - - documented in this encounter Discharge Instructions Discharge InstructionsMarixa Walden MD - 03/13/2015 6:34 PM CDT Images from the original note were not included. Stop the norvasc. Compression hose and elevate legs above the heart. Start lasix (BP and water pill) 2-3x per day as tolerated. Followup Sunday or Sunday with Dr Denton. Blood Pressure Discharge Instructions: Your blood pressure was checked while you were in the emergency department today. The last reading we obtained was 191/97. Please read the guidelines below about what these numbers mean and what you should do about them. If your systolic blood pressure (the top number) is less than 120 and your diastolic blood pressure (the bottom number) is less than 80, then your blood pressure is normal. There is nothing more that you need to do about it. If your systolic blood pressure (the top number) is 120-139 or your diastolic blood pressure (the bottom number) is 80-89, your blood pressure may be higher than it should be. You should have your blood pressure rechecked within a year by a primary care provider. If your systolic blood pressure (the top number) is 140 or greater or your diastolic blood pressure (the bottom number) is 90 or greater, you may have high blood pressure. High blood pressure is treatable, but if left untreated over time it can put you at risk for heart attack, stroke, or kidney failure. You should have your blood pressure rechecked by a primary care provider within the next 4 weeks. If your provider in the emergency department today gave you specific instructions to follow-up with your doctor or provider even sooner than that, you should follow that instruction and not wait for upto 4 weeks for your follow-up visit. Leg Swelling in Both Legs Swelling of the feet, ankles, and legs is called edema. It is caused by excess fluid that has collected in the tissues. Extra fluid in the body settles in the lowest part because of gravity. This is why the legs and feet are most affected. Some of the causes for edema include: ?? Disease of the heart like congestive heart failure ?? Standing or sitting for long periods of time. Sitting with your legs in the down position may do this. ?? Infection of the feet or legs ?? Blood pooling in the veins of your legs (venous insufficiency) ?? Dilated veins in your lower leg (varicose veins) ?? Garters or other clothing that is tight on your legs. This will cause blood to pool in your legs because the clothing limits blood flow. ?? Some medicines. These include hormones like control pills. They also include some blood pressure medicines like calcium channel blockers and steroids. Other medicines include some antidepressants like MAO inhibitors and tricyclics. ?? Menstrual periods that cause you to retain fluids ?? Many types of renal disease ?? Liver failure??or cirrhosis ?? . Some swelling is normal, but a sudden increase in leg swelling or weight gain can be asign of a dangerous complication of .. ?? Poor nutrition Medical treatment will depend on what is causing the swelling in your legs. Your health care provider may prescribe water pills (diuretics) to get rid of the extra fluid. Home care Follow these guidelines when caring for yourself at home: ?? Don't wear clothing like garters that is tight on your legs. ?? Keep your legs up while lying or sitting. ?? If infection, injury, or recent surgery is causing the swelling, stay off your legs as much as possible until symptoms get better. ?? If your health care provider says that your leg swelling is caused by venous insufficiency or varicose veins, don't sit or quality control inspector one place for long periods of time. Take breaks and walk about every few hours. Brisk walking is a good exercise. It helps circulate the blood that has collected in your leg. Talk with your provider about using support stockings to stop daytime leg swelling. ?? If your provider says that heart disease is causing your leg swelling, follow a low-salt diet to stop extra fluid from staying in your body. Follow-up care Follow up with your health care provider, or as advised. When to seek medical advice Call your health care provider right away if any of these occur: ?? New shortness of breath or chest pain ?? Shortness of breath or chest pain that gets worse ?? Swelling in both legs or ankles that gets worse ?? Swelling of the abdomen ?? Redness, warmth, or swelling in one leg ?? Fever of 100.4??F (38??C) or higher, or as directed by your health care provider ?? Yellow color to your skin or eyes ?? Rapid, unexplained weight gain ? [id number] [employer]. [address] [place] [address], [place] [address]. All rights reserved. This information is not intended as a substitute for professional medical care. Always follow your healthcare professional's instructions. documented in this encounter Medications at Time of Discharge Medication Sig Dispensed Refills Start Date End Date amLODIPine (NORVASC) 10 Take 1 tablet (10 mg) 90 tablet 1 0 01/22/2015 01/29/2016 MG tabletIndications: by mouth daily HTN, goal below 140/90 amLODIPine (NORVASC) 5 Take 1 tablet (5 mg) 30 tablet 0 01/29/2016 MG tabletIndications: by mouth daily HTN, goal below 140/90 furosemide (LASIX) 40 MG Take 1 tablet (40 mg) 30 tablet 0 03/13/2015 01/29/2016 tablet by mouth 3 times daily IBUPROFEN PO Take 200 mg by mouth 0 as needed for moderate pain [id number] Zzzquil, take 1 0 capsule daily as needed sertraline (ZOLOFT) 25 Take 25 mg by mouth 0 02/10/2016 MG tablet daily. If having a bad day can take one extra tablet(PRN). sertraline (ZOLOFT) 50 Take 1 tablet (50 mg) 90 tablet 1 01/29/2016 MG tabletIndications: by mouth daily Mild major depression (H) documented as of this encounter ED Notes Saima Irwin RN - 03/13/2015 4:35 PM CDT Pt c/o of leg swelling for past 2 days. Pt states that her planning consultant doubled dose of Norvasc and stated she may have some leg swelling. Pt attempted to go to but it was closed. Pt denies pain.ABCs intact. Alert and oriented x3 Marixa Walden MD - 03/13/2015 4:30 PM CDT History Chief Complaint: Leg Swelling HPI Lee Ann Herndon is a 74 year old female who presents to the ED for evaluation of leg swelling. The patient reports that she had her amlodipine dose doubled a few weeks ago, but over the last few days her bilateral legs have become swollen to the point that she cannot put on her shoes. She denies any chest pain, difficulty breathing, palpitations, history of blood clots, appetite change, or historyof cardiac issues. No chest pain or SOB. No weakness. No recent travel or history of DVTs. No fevers. No redness. No headaches. No history of venous insufficiency. Allergies: Cephalosporins Clindamycin Erythromycin Lisinopril Penicillins Sympathomimetics Tetracyclines Medications: Zoloft Norvasc Ibuprofen Past Medical History: GERD Depressive disorder Hiatal hernia Colon polyp Hypertension Arthritis Thyroid disease Past Surgical History: Appendectomy Hernia repair - right inguinal Bilateral knee replacement Parathyroidectomy Left ankle surgery Family History: Breast Cancer - Mother, Sister Social History: Smoking Status: Never Smoker Smokeless Tobacco: Never Used Alcohol Use: No Review of Systems Constitutional: Negative for appetite change. Respiratory: Negative for shortness of breath. Cardiovascular: Positive for leg swelling (bilateral). Negative for chest pain and palpitations. All other systems reviewed and are negative. Pt c/o of leg swelling for past 2 days. Pt states that her planning consultant doubled dose of Norvasc and stated she may have some leg swelling. Pt attempted to go to but it was closed. Pt denies pain. Physical Exam First Vitals: BP: 191/97 mmHg Temp: 97.9 ??F (36.6 ??C) Temp src: Oral Pulse: 104 Resp: 18 SpO2: 98 % (normal) Physical Exam GEN: patient smiling, no distress HEAD: atraumatic, normocephalic EYES: pupils reactive (3plus to 2plus), extraocular muscles intact, conjunctivae normal ENT: TMs flat and white bilaterally, oropharynx normal with no erythema or exudate, mucus membranes moist, nose mucosa pink with no exudate bilaterally NECK: no cervical LAD, no meningeal signs, trachea midline, no carotid bruits or JVD RESPIRATORY: no tachypnea, breath sounds clear to auscultation (no rales, wheezes, rhonchi) CVS: normal S1/S2, II/ systolic murmurs/rubs/S3 gallops ABDOMEN: soft, nontender, no masses or organomegaly, no rebound, positive bowel sounds BACK: no costovertebral angle tenderness, no spinal tenderness EXTREMITIES: intact pulses x 4, full range of motion at joints, no clubbing/cyanosis, 4 plus edema on legs MUSCULOSKELETAL: no deformities SKIN: warm and dry, no acute rashes or ulceration, no erythema or fluctuance NEURO: GCS 15, cranial nerves intact. Motor- moves all 4 extremities . Sensation- intact . Coordination- ambulatory. Overall symmetrical exam HEME: no bruising or petechiae/contusions LYMPH: no lymphadenopathy Emergency Department Course Imaging: Radiographic findings were communicated with the patient who voiced understanding of the findings. Lower extremities, bilateral, venous US: 1. Normal venous Doppler of both lower extremities. Per radiology. Laboratory: CBC: PLT 143 low, o/w WNL (WBC 6.3, HGB 12.0) CMP: Glucose 131 high, Calcium 8.2 low, o/w WNL (Creatinine 0.90) Troponin I: <0.015 (WNL) BNP: 70 (WNL) UA: All negative Interventions: 1654 Lasix 40mg IV Heplock Cardiac monitoring Emergency Department Course: Nursing notes and vitals reviewed. I performed an exam of the patient as documented above. IV inserted and blood drawn. The patient was placed on continuous cardiac monitoring and pulse oximetry. The above laboratory workup was performed. The above imaging workup was performed. 1814: Discussed results with patient. Gave patient copies of results (applicable labs, CT scans and/or ultrasound). Answered questions. Asked patient to followup with PCP. I personally reviewed the laboratory results with the Patient and answered all related questions prior to discharge. Findings and plan explained to the Patient. Patient discharged home with instructions regarding supportive care, medications, and reasons to return. The importance of close follow-up was reviewed. The patient was prescribed Lasix. BP 125/80 mmHg Pulse 94 Temp(Src) 97.9 ??F (36.6 ??C) (Oral) Resp 20 SpO2 97% Discussed results with patient. Gave patient copies of results (applicable labs, CT scans and/or ultrasound). Answered questions. Asked patient to followup with PCP. Impression & Plan Differential diagnosis for extremity pain: edema, lymphedema, DVT Medical Decision Making: This is a 74 year old female who has bilateral lower extremity swelling. The patient admits that shehas had her Norvasc recently increased through her PCP. She does have bilateral edema. There is no evidence of CHF on exam, and her ultrasound is negative for DVT. Urinalysis is negative and her creatinine is normal, showing she has normal renal functions. BNP is also not consistent with CHF. The planis to stop the Norvasc and start the patient on Lasix. We did recheck her BP here in the ED, this is125/80. She will do the lasix BID or TID over the next couple of days, and follow up with her PCP early next week. Diagnosis: 1. (782.3) Bilateral edema of lower extremity Disposition: Home. She will get compression hoes and she should ice and rest the area. Discharge Medications: The Patient was prescribed Lasix 40mg tablet 3x daily. Instructions to patient: Stop the norvasc. Compression hose and elevate legs above the heart. Start lasix (BP and water pill) 2-3x per day as tolerated. Followup Sunday or Sunday with Dr Denton. Jonh Obrien, doreen serving as a scribe on 03/13/2015 at 1632 to personally document services performed by Dr. Walden based on the provider's statements to me. [facility] EMERGENCY DEPARTMENT Marixa Walden MD 03/14/15 1133 documented in this encounter Plan of Treatment Not on filedocumented as of this encounter Procedures Procedure Name Priority Date/Time Associated Comments Diagnosis ROUTINE UA WITH STAT 03/13/2015 5:40 PM Result s for this MICROSCOPIC CDT procedure are i n the results section. US LOWER EXTREMITY STAT 03/13/2015 5:39 PM Res ults for this VENOUS DUPLEX CDT procedure are in BILATERAL the results section. CBC WITH PLATELETS & STAT 03/13/2015 4:52 PM R esults for this DIFFERENTIAL CDT procedure are i n the results section. TROPONIN I STAT 03/13/2015 4:52 PM Results f or this CDT procedure are i n the results section. NT PROBNP INPATIENT STAT 03/13/2015 4:52 PM Re sults for this CDT procedure are i n the results section. COMPREHENSIVE STAT 03/13/2015 4:52 PM Results for this METABOLIC PANEL CDT procedure ar e in the results section. documented in this encounter Results UA with Microscopic (03/13/2015 5:40 PM CDT) [facility] Method Time Signature Color Urine Straw [facility] Appearance Urine Clear [facility] Glucose Urine Negative NEG mg/dL [facility] Bilirubin Urine Negative NEG [facility] Ketones Urine Negative NEG mg/dL [facility] Specific [place] 1.003 1.003 - [place] Urine 1.035 [facility] Blood Urine Negative NEG [facility] pH Urine 6.5 5.0 - 7.0 [place] pH [facility] Protein Albumin Negative NEG mg/dL [facility] Urobilinogen Normal 0.0 - 2.0 [place] mg/dL mg/dL [facility] Nitrite Urine Negative NEG [facility] Leukocyte Negative NEG [place] Esterase Urine [facility] Source Midstream [facility] WBC Urine <1 0 - 2 [facility] RBC Urine <1 0 - 2 [facility] Specimen Anatomical Collection Method Collection Time Receive d Time (Source) Location / / Volume Laterality Urine specimen URINE SPECIMEN 03/13/2015 5:40 PM 03/13 5:57 (specimen) OBTAINED BY CLEAN CDT PM CDT CATCH PROCEDURE / Unknown Marixa Walden MD LAB - URINE ORDERABLES Performing Organization Address City/State/ZIP Code Phon e Number [facility] [address] [place], [place] [address] [facility] [address] [phone] Lower extremities, bilateral, venous US (03/13/2015 5:39 PM CDT) Anatomical Region Laterality Modality Vascular, Thigh, Leg Ultrasound Specimen (Source) Anatomical Location Collection Method / Collectio n Time Received Time / Laterality Volume Impressions 03/13/2015 6:13 PM CDT IMPRESSION: Normal venous Doppler of both lower extremities. SANGEETHA STRINGER MD Narrative 03/13/2015 6:13 PM CDT US LOWER EXTREMITY VENOUS DUPLEX BILATERAL ??03/13/2015 5:39 PM HISTORY: ??Leg swelling. COMPARISON: Left leg Doppler 02/28/2013. FINDINGS: Venous Doppler of both lower e xtremities with waveform spectral analysis. Exam is normal. No ev idence for deep venous thrombosis. No change on the left since prior exam of 02/28/2013. Procedure Note Sangeetha Stringer MD - 03/13/2015Forma tting of this note might be different from the original. US LOWER EXTREMITY VENOUS DUPLEX BILATER AL 03/13/2015 5:39 PM HISTORY: Leg swelling. COMPARISON: Left leg Doppler 02/28/2013. FINDINGS: Venous Doppler of both lower e xtremities with waveform spectral analysis. Exam is normal. No ev idence for deep venous thrombosis. No change on the left since prior exam of 02/28/2013. IMPRESSION IMPRESSION: Normal venous Doppler of bot h lower extremities. SANGEETHA STRINGER MD Marixa Walden MD IMG US ORDERABLES Troponin I (03/13/2015 4:52 PM CDT) [facility] gist Method Time Signature Troponin I ES <0.015 0.000 - [place] The 99th percentile for uppe r reference range is 0.045 ug/L. ??Troponin values in 0.045 [facility] the range of 0.045 - 0.120 ug/L may be associated wit h risks of adverse ug/L HOSPITAL clinical events. Specimen Anatomical Collection Method Collection Time Receive d Time (Source) Location / / Volume Laterality Blood specimen 03/13/2015 4:52 PM 015 5:22 (specimen) CDT PM CDT Marixa Walden MD LAB - BLOOD ORDERABLES Performing Organization Address City/State/ZIP Code Phon e Number [place] [address] [place] [id number] HOSPITAL [facility] [address] [phone] (ABNORMAL) Comprehensive metabolic panel (03/13/2015 4:52 PM CDT) athologist Signature Sodium 142 133 - 144 [place] mmol/L [facility] Potassium 3.6 3.4 - 5.3 [place] mmol/L [facility] Chloride 108 94 - 109 [place] mmol/L [facility] Carbon Dioxide 25 20 - 32 [place] mmol/L [facility] Anion Gap 9 3 - 14 [place] mmol/L [facility] Glucose 131 (H) 70 - 99 [place] mg/dL [facility] Urea Nitrogen 17 7 - 30 [place] mg/dL [facility] Creatinine 0.90 0.52 - [place] 1.04 mg/dL [facility] GFR Estimate 61 >60 [place] mL/min/1.[address] Comment: Non GFR Calc GFR Estimate If Black 74 >60 mL/min/1.7m2 F [facility] Comment: GFR Calc Calcium 8.2 (L) 8.5 - 10.1 mg/dL [facility] Bilirubin Total 0.4 0.2 - 1.3 mg/dL [facility] Albumin 3.7 3.4 - 5.0 g/dL [facility] Protein Total 7.2 6.8 - 8.8 g/dL [facility] Alkaline Phosphatase 87 40 - 150 U/L [facility] ALT 19 0 - 50 U/L [facility]ITAL AST 15 0 - 45 U/L [facility] HOS PITAL Specimen Anatomical Collection Method Collection Time Receive d Time (Source) Location / / Volume Laterality Blood specimen 03/13/2015 4:52 PM 015 5:22 (specimen) CDT PM CDT Marixa Walden MD LAB - BLOOD ORDERABLES Performing Organization Address City/State/ZIP Code Phon e Number [place] [address] [place] [address] [facility] [address] [phone] (ABNORMAL) CBC with platelets differential (03/13/2015 4:52 PM CDT) [facility] Method Time Signature WBC 6.3 4.0 - [place] 11.0 [facility] 10e9/L [facility] RBC Count 4.23 3.8 - 5.2 [place] 10e12/L [facility] Hemoglobin 12.0 11.7 - [place] 15.7 g/dL [facility] Hematocrit 38.6 35.0 - [place] 47.0 % [facility] MCV 91 78 - 100 [facility] MCH 28.4 26.5 - [facility] 33.0 pg [facility] MCHC 31.1 (L) 31.5 - [place] 36.5 g/dL [facility] RDW 14.1 10.0 - [place] 15.0 % [facility] Platelet Count 143 (L) 150 - 450 [place] 10e9/L [facility] Diff Method Automated [place] Method [facility] % Neutrophils 60.5 % [facility] % Lymphocytes 28.3 % [facility] % Monocytes 6.4 % [facility] % Eosinophils 4.3 % [facility] % Basophils 0.3 % [facility] % Immature 0.2 % [place] Granulocytes [facility] Absolute 3.8 1.6 - 8.3 [place] Neutrophil 10e9/L [facility] Absolute 1.8 0.8 - 5.3 [place] Lymphocytes 10e9/L [facility] Absolute 0.4 0.0 - 1.3 [place] Monocytes 10e9/L [facility] Absolute 0.3 0.0 - 0.7 [place] Eosinophils 10e9/L [facility] Absolute 0.0 0.0 - 0.2 [place] Basophils 10e9/L [facility] Abs Immature 0.0 0 - 0.4 [place] Granulocytes 10e9/L [facility] Specimen Anatomical Collection Method Collection Time Receive d Time (Source) Location / / Volume Laterality Blood specimen 03/13/2015 4:52 PM 015 5:22 (specimen) CDT PM CDT Marixa Walden MD LAB - BLOOD ORDERABLES Performing Organization Address City/State/ZIP Code Phon e Number [place] [address] [place] [address] [facility] [address] [phone] Nt probnp inpatient (03/13/2015 4:52 PM CDT) athologist Signature N-Terminal Pro 70 0 - 900 [place] BNP Inpatient pg/mL [facility] Comment: Reference range shown and results flagge d as abnormal are suggested inpatient cut points for confirming diagnosis if CHF in an acute setting. Establishing a baseline value for each individual silver ent is useful for follow-up. An inpatient or emergency department NT-pr oPBNP <300 pg/mL effectively rules out acute CHF, with 99% negative predictive value. The outpatient non-acute reference range for ruling out CHF is: 0-125 pg/mL (age 18 to less than 75) 0-450 pg/mL (age 75 yrs and older) Specimen Anatomical Collection Method Collection Time Receive d Time (Source) Location / / Volume Laterality Blood specimen 03/13/2015 4:52 PM 015 5:22 (specimen) CDT PM CDT Marixa Walden MD LAB - BLOOD ORDERABLES Performing Organization Address City/State/ZIP Code Phon e Number [facility] [address] [place], [place] [address] [facility] [address] [place], [place] [address] [place] [address] documented in this encounter Visit Diagnoses Diagnosis Bilateral edema of lower extremity Edema documented in this encounter Administered Medications Inactive Administered Medications - up to 3 most recent administrations Medication Order MAR Action Action Date Dose Rate Site furosemide (LASIX) injection 40 mg Given 03/13/2015 4:54 PM CDT 40 mg 40 mg, Intravenous, ONCE, On 03/13/15 at 1639, For 1 dose documented in this encounter Active and Recently Administered Medications Times are shown in CDT. Scheduled Medication Order 03/11/2015 03/12/2015 03/13/2015 furosemide (LASIX) injection 40 mg (COMPLETED) 8004 (Given - Provider: Saima Irwin RN) 40 mg, Intravenous, ONCE, 03/13/15 at 1639, For 1 dose documented in this encounter Care Teams Loan Interviewer Mortgage Relationship Specialty Start Date End Date Fely Denton MD PCP - General Family Practice 11/02/14 01/28/16 documented as of this encounter
--- OUTSIDE RECORDS SUMMARY | 2022-07-19 22:58 | XMS_ITS | Encounter Summary ---
:1940 Author Organization [facility] Address [address] [place] [address] Care Team Providers Name Role Phone Lio Stone MD Primary Care Provider [phone] Reason for Visit Reason Onset Date Comments Forms 06/19/2016 Reasonable Accommoda tion Form Encounter Details Date Type Department Care Team Description 06/19/2016 Telephone [facility] Korin Gutierrez, For ms ([facility] [place] DO Accommodation Form) [id number] [place] [id number] [facility] [phone] [place] [address] (Wo rk) Social History Tobacco Use Types Packs/Day Years Used Date Smoking Tobacco: Never Smokeless Tobacco: Never Alcohol Use Standard Drinks/Week Comments No 0 (1 standard drink = 0.6 oz pure alcoho l) Sex Assigned at Date Recorded Not on file documented as of this encounter Miscellaneous Notes Telephone Encounter - Reta Whitney - 06/19/2016 10:04 AM CDT appt made with dr dioni Whitney/Physiotherapy Practice Manager Telephone Encounter - Korin Ferrer DO - 06/19/2016 9:45 AM CDT Please have pt make an appt for this paperwork to be filled out Telephone Encounter - Reta Whitney - 06/19/2016 9:23 AM CDT Reasonable accommodation form received for Dr Ferrer to fill out and sign Reta Whitney/Physiotherapy Practice Manager documented in this encounter Plan of Treatment Not on filedocumented as of this encounter Visit Diagnoses Not on filedocumented in this encounter Additional Health Concerns Assessment Noted Time PHQ-9 Depression Total Score: 10 03/10/2016 7:14 AM CD T documented as of this encounter Care Teams Business Affairs Manager Relationship Specialty Start Date End Date Lio Stone MD PCP - General Family Practice 06/19/16 [address] [place] [address] documented as of this encounter
--- OUTSIDE RECORDS SUMMARY | 2022-07-19 22:58 | XMS_ITS | Encounter Summary ---
:1940 Author Organization [facility] Address [address] [place] [address] Care Team Providers Name Role Phone Korin Gutierrez DO Primary Care Provider Reason for Visit Reason Comments Consult hyperparathyroid Encounter Details Date Type Department Care Team Description 04/12/2016 Office Visit [facility] Vonnie [facility] (Primary Dx) [place] [address] [place] [address] [phone] Social History Tobacco Use Types Packs/Day Years Used Date Smoking Tobacco: Never Smokeless Tobacco: Never Tobacco Cessation: Counseling Given: Yes Alcohol Use Standard Drinks/Week Comments No 0 (1 standard drink = 0.6 oz pure alcoho l) Sex Assigned at Date Recorded Not on file documented as of this encounter Last Filed Vital Signs Vital Sign Reading Time Taken Comments Blood Pressure 140/82 04/12/2016 2:05 PM CDT Pulse 79 04/12/2016 2:05 PM CDT Temperature - - Respiratory Rate - - Oxygen Saturation 96% 04/12/2016 2:05 PM CDT Inhaled Oxygen Concentration - - Weight 117 kg (258 lb) 04/12/2016 2:05 PM CDT pt report ed Height 160 cm (5' 3) 04/12/2016 2:05 PM CDT pt report ed Body Mass Index 45.7 04/12/2016 2:05 PM CDT documented in this encounter Progress Notes Vonnie Murphy MD - 04/12/2016 2:41 PM CDT History of Present Illness: Lee Ann Herndon is a 76 year old female who is sent by Dr. Korin Ferrer for evaluation of high PTHlevels with a normal Calcium two years after neck exploration and removal of two parathyroid adenomas. She has complaints of restless legs and hoarseness and leg cramps. Her calcium was 8.2 on 03/13/2015 and 8.6 on 02/28/2016. A PTH level drawn 02/10/2016 was 187. Her operative and pathology reports are reviewed and she had two abnormal parathyroid glands removed and two normal ones seen. She has been vitamin D deficient and denies having renal failure (confirmed by normal labs) or having gastric bypass. No [place] use. There is no family history of parathyroid disease. She is not on thyroid medications. Past Medical History Diagnosis Date ??? Esophageal reflux ??? Depressive disorder, not elsewhere classified ??? Hiatal hernia 2010 ??? 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 Hypertension ??? Arthritis knees ??? Thyroid disease ??? Gout 09/11/2014 Problem list name updated by automated process. Provider to review Past Surgical History Procedure Laterality Date ??? [...] 3 years ??? Surgical history of - 2008 left ankle surgery - [facility] ??? Appendectomy ??? Hernia repair ??? Orthopedic surgery bilat knee replaclement-- ankle repair ??? Parathyroidectomy 01/26/2014 Procedure: PARATHYROIDECTOMY; Surgeon: Vonnie Murphy MD; Location: [facility] OR Allergies Allergen Reactions ??? Cephalosporins Hives keflex ??? Clindamycin Diarrhea ??? Erythromycin Nausea and Vomiting and Hives ??? Penicillins Hives and Itching ??? Sympathomimetics Swelling resperidol ??? Tetracyclines Hives and Itching Smoking History: has never smoked. Review of Systems: See HPI Physical Exam: BP 140/82 mmHg Pulse 79 Ht 5' 3 (1.6 m) Wt 258 lb (117.028 kg) BMI 45.71 kg/m2 SpO2 96% ? No Well developed, well nourished female in no apparent distress. HEENT: Normocephalic, atraumatic. Neck: Visible scars. Range of motion is normal. No neck masses. Thyroid: Palpably normal. Lymph: No cervical adenopathy. Respirations: Unlabored. Neurologic: Alert. Speech is clear. Moves all extremities with good strength. Skin: Warm, dry and no rash. Psychologic: Alert, appropriate range of emotions. Labs: Calcium-8.2-8.6 PTH-187 Assessment and Plan: Lee Ann an elevated PTH with a normal calcium level. This is not consistent with recurrent primary hyperparathyroidism. No further surgery or imaging is indicated at this time. Certainly, any patient with multi gland disease (she had two abnormal glands at initial surgery) is higher risk for recurrence. However, there is no evidence for this with normal calcium. In fact, I can make her worse with operation. I suspect her high PTH is on the basis of Vitamin D Deficiency and have suggested at least 2000 Units daily. I would like her to have an annual calcium level checked. Would only check a PTH if the calcium level iselevated. For hoarseness, would have ENT eval if it persists. She is aware and will let us know if needed. Vonnie Murphy MD Please route or send letter to: Primary Care Provider (PCP). Send dictated letter only to the referring physician. 30 minutes spent with the patient, over 50% as counseling. . HPI ROS Physical Exam Yenny Wolfe CMA - 04/12/2016 2:11 PM CDT HPI ROS (Review of Systems): Positive for weight gain and anemia. Cardiovascular: Positive for leg pain. Genitourinary: Positive for nocturia. Physical Exam documented in this encounter Plan of Treatment Not on filedocumented as of this encounter Visit Diagnoses Diagnosis Cramp of limb - Primary documented in this encounter Additional Health Concerns Assessment Noted Time PHQ-9 Depression Total Score: 10 03/10/2016 7:14 AM CD T documented as of this encounter Care Teams Sales And Service Specialist Relationship Specialty Start Date End Date Korin Gutierrez DO PCP - General Family Practice 03/09/16 06/18/16 documented as of this encounter
--- OUTSIDE RECORDS SUMMARY | 2022-07-19 22:58 | XMS_ITS | Encounter Summary ---
:1940 Author Organization [facility] Address [address] [facility] [place] [address] Care Team Providers Name Role Phone Julia White MD Primary Care Provider Reason for Visit [facility] (Routine) - Closed Specialty Diagnoses / Procedures Referred By Contact Refer red To Contact Fely Denton MD [facility] Sports & [id number] [facility] Physical Therapy - [address] [address] [facility] [address] [place] [address] Phone: Fax: Referral ID Status Reason Start Date Expiration Date Visits V isits Requested Authorized [facility]/UCARE/LBP/ Closed 04/29/2014 08/14/2014 8 [id number] Encounter Details Date Type Department Care Team Description 05/08/2014 Therapy Visit [facility] Christal Escoto ( Primary Dx) Rehabilitation Services [facility] Patrick Warba [address] [facility] [id number] [place] [address] [address] [place] [address] Social History Tobacco Use Types Packs/Day Years Used Date Smoking Tobacco: Never Smokeless Tobacco: Never Alcohol Use Standard Drinks/Week Comments No 0 (1 standard drink = 0.6 oz pure alcoho l) Sex Assigned at Date Recorded Not on file documented as of this encounter Progress Notes Harvey Escoto PT - 06/24/2014 9:38 AM CDT Subjective: HPI Objective: System Physical Exam General ROS Assessment/Plan: DISCHARGE REPORT Progress reporting period is from 05/01/14 to 05/08/14. SUBJECTIVE Subjective changes noted by patient: . Subjective: was doing little better, until back was hit by door knob and then twisted while picking up paper from floor. Pt feels HEP helping. Final status unknown as pt failed to return. Current pain level is 5/10 . Previous pain level was Initial Pain level: 9/10. Changes in function: Yes (See Goal flowsheet attached for changes in current functional level) Adverse reaction to treatment or activity: activity - ran into door knob OBJECTIVE Changes noted in objective findings: Objective: very gaurded with all movement ASSESSMENT/PLAN Updated problem list and treatment plan: Diagnosis 1: LBP STG/LTGs have been met or progress has been made towards goals: Yes (See Goal flow sheet completed today.) Assessment of Progress: The patient's condition is improving. The patient has not returned to therapy. Current status is unknown. Self Management Plans: Patient has been instructed in a home treatment program. Patient has been instructed in self management of symptoms. I have re-evaluated this patient and find that the nature, scope, duration and intensity of the therapy is appropriate for the medical condition of the patient. Lee Ann continues to require the following intervention to meet STG and LTG's: PT intervention is no longer required to meet STG/LTG. Recommendations: This patient is ready to be discharged from therapy and continue their home treatment program. Please refer to the daily flowsheet for treatment today, total treatment time and time spent performing 1:1 timed codes. documented in this encounter Miscellaneous Notes Addendum Note - Harvey Escoto PT - 06/24/2014 9:40 AM CDT Addended by: HARVEY ESCOTO on: 06/24/2014 09:40 AM Modules accepted: Orders documented in this encounter Plan of Treatment Not on filedocumented as of this encounter Procedures Procedure Name Priority Date/Time Associated Diagnosis Comme nts [facility] NEUROMUSCULAR Routine 05/08/2014 9:11 AM Lumbago RE-EDUCATION CDT [facility] THERAPEUTIC EXERCISES Routine 05/08/2014 9:11 AM Lumbago CDT [facility] HOT OR COLD PACKS Routine 05/08/2014 9:11 AM Lumbago THERAPY CDT documented in this encounter Visit Diagnoses Diagnosis Lumbago - Primary documented in this encounter Care Teams Nuclear Powerplant Mechanic Relationship Specialty Start Date End Date Julia White MD PCP - General Family Practice 12/18/13 11/01/14 [address] [place] [address] documented as of this encounter
--- OUTSIDE RECORDS SUMMARY | 2022-07-19 22:58 | XMS_ITS | Encounter Summary ---
:1940 Author Organization [facility] Address [address] [place] [address]. [place] [address] Care Team Providers Name Role Phone Fely Denton MD Primary Care Provider [phone] Reason for Visit Reason Onset Date Comments Outreach 08/05/2015 Encounter Details Date Type Department Care Team Description 08/05/2015 Telephone [facility] Sanjiv Pritchard LSW [facility] MANAGEMENT DEPT [address] [facility] [address] [place] [address] [place] [address] [place] [address] [phone] Social History Tobacco Use Types Packs/Day Years Used Date Smoking Tobacco: Never Smokeless Tobacco: Never Alcohol Use Standard Drinks/Week Comments No 0 (1 standard drink = 0.6 oz pure alcoho l) Sex Assigned at Date Recorded Not on file documented as of this encounter Miscellaneous Notes Telephone Encounter - Sanjiv Pritchard LSW - 08/05/2015 2:11 PM CHIEF METEOROLOGIST Advance Care Planning 08/05/2015: ACP Review and Resources Provided: Is Your Serious Illness the Elephant in Your Doctor's Examining Room?. [employer]. Lee Ann Herndon has no plan and PRIOR/FULL code status on file. Discussed available resources andprovided with information. Confirmed code status reflects current choices pending further ACP discussions. Confirmed/documented legally designated decision maker(s). Ms. Herndon denies any further assistance with ACP. No further contact is necessary at this time. JAZMIN Galvan FPA Advance Care Planning Pinking Machine Operator August 05, 2015 F METEOROLOGIST documented in this encounter Plan of Treatment Not on filedocumented as of this encounter Visit Diagnoses Diagnosis ACP (advance care planning) - Primary Other specified counseling documented in this encounter Care Teams Shaper Operator Relationship Specialty Start Date End Date Fely Denton MD PCP - General Family Practice 11/02/14 01/28/16 documented as of this encounter
--- OUTSIDE RECORDS SUMMARY | 2022-07-19 22:58 | XMS_ITS | Encounter Summary ---
:1940 Author Organization [facility] Address [address] [place] [address]. [place] [address] Care Team Providers Name Role Phone Fely Denton MD Primary Care Provider [phone] Reason for Visit (Routine) - Closed Specialty Diagnoses / Procedures Referred By Contact Refer red To Contact Radiology / Diagnoses epic, sb pt, MRI safe, titanium knee replacements bilateral. Rh Mri cc Radiology[place] [address] [employer] [address] [place] [address] Phone: Fax: Referral ID Status Reason Start Date Expiration Date Visits Requ ested Visits Authorized [id number] Closed 02/17/2016 02/10/2017 1 1 Encounter Details Date Type Department Care Team Description [facility]/17[facility]2016 [facility] MD Rand Hip pain, right [address] [address] [address] [place] [address] [id number] Social History Tobacco Use Types Packs/Day Years Used Date Smoking Tobacco: Never Smokeless Tobacco: Never Alcohol Use Standard Drinks/Week Comments No 0 (1 standard drink = 0.6 oz pure alcoho l) Sex Assigned at Date Recorded Not on file documented as of this encounter Medications at Time of Discharge Medication Sig Dispensed Refills Start Date End Date IBUPROFEN PO Take 200 mg by mouth 0 as needed for moderate pain [id number] Zzzquil, take 1 0 capsule daily as needed sertraline (ZOLOFT) 25 Take 1 tablet (25 mg) 90 tablet 1 09/11/2016 MG tabletIndications: by mouth daily Take 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 documented as of this encounter Plan of Treatment Not on filedocumented as of this encounter Procedures Procedure Name Priority Date/Time Associated Diagnosis Comme nts MR LUMBAR SPINE W/O Routine 02/17/2016 6:45 PM Sciatica, right Results for this CONTRAST CDT Hip pain, right procedure ar e in the results section. documented in this encounter Results MR Lumbar Spine w/o Contrast (02/17/2016 6:45 PM CDT) Anatomical Region Laterality Modality Spine, SUBRAD MR MSK, UMP MR SPINE Magne tic Resonance Specimen (Source) Anatomical Location Collection Method / Collectio n Time Received Time / Laterality Volume Impressions 02/18/2016 4:30 PM CDT IMPRESSION: 1. 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 Borderlin e-mild central stenosis L4-L5 related to multiple factors. No other ce ntral stenosis. 2. No significant foraminal narrowing th roughout the lumbar spine. 3. Curvature of the lumbar spine convex to the left. JOHN MARINO MD Narrative 02/18/2016 4:30 PM CDT LUMBAR SPINE WITHOUT CONTRAST ?? 02/17/2016 ?? 6:45 PM HISTORY: Back and right buttock and leg pain with tingling, numbness and weakness for 6 months. TECHNIQUE: Sagittal T1 and T2 and STIR, axial proton density and T2 images. Coronal T1-weighted images were also obtained. COMPARISON: None. FINDINGS: Five functional lumbar vertebr al segments are assumed. The caudal thecal sac contents appear intrin sically normal. There is a subtle degenerative anterolisthesis of L 4 on L5 and minimal degenerative retrolisthesis of L1 on L2. Alignment in the sagittal plane is otherwise normal. There is mild curvature of the lumbar spine convex to the left. Several scattered Sc hmorl's nodes are seen, largest involving the superior endplate of L4. Mild benign peridiscal degenerative signal change is seen at so me levels. T12-L1: Signal loss, mild posterior disc space narrowing and minimal disc bulging without disc protrusion or central or foraminal stenosis. Posterior facets are normal. L1-L2: Signal loss, moderate disc space narrowing and no disc bulge/protrusion or central or foraminal stenosis. Posterior facets are normal. L2-L3: Signal loss without disc space na rrowing. There are a few tiny annular fissures posteriorly. Minimal di sc bulging without disc protrusion or central or foraminal steno sis. Posterior facets show mild degenerative change, right greater than left. L3-L4: Signal loss, mild right-sided deg enerative disc space narrowing and minimal disc bulging without disc pr otrusion or central or foraminal stenosis. Mild posterior facet degenerative changes bilaterally. There is also mild thickeni ng of the ligamentum flavum. L4-L5: Signal loss without disc space na rrowing. Minimal disc bulging without disc protrusion. Moderate sheet rocker ior facet degenerative changes with subtle degenerative anterolisthesis . Borderline-mild central stenosis related to the bulging disc, ma rked thickening of the ligament flavum and dorsal epidural fat. No significant foraminal narrowing bilaterally. L5-S1: Signal loss without disc space na rrowing or disc bulge/protrusion. No central stenosis. M inimal left foraminal narrowing related to moderate posterior facet degenerative changes, left greater than right. ?? Procedure Note John Marino MD - 02/18/2016Fo rmatting of this note might be different from the original. LUMBAR SPINE WITHOUT CONTRAST 02/17/2016 6:45 PM HISTORY: Back and right buttock and leg pain with tingling, numbness and weakness for 6 months. TECHNIQUE: Sagittal T1 and T2 and STIR, axial proton density and T2 images. Coronal T1-weighted images were also obtained. COMPARISON: None. FINDINGS: Five functional lumbar vertebr al segments are assumed. The caudal thecal sac contents appear intrin sically normal. There is a subtle degenerative anterolisthesis of L 4 on L5 and minimal degenerative retrolisthesis of L1 on L2. Alignment in the sagittal plane is otherwise normal. There is mild curvature of the lumbar spine convex to the left. Several scattered Sc hmorl's nodes are seen, largest involving the superior endplate of L4. Mild benign peridiscal degenerative signal change is seen at so me levels. T12-L1: Signal loss, mild posterior disc space narrowing and minimal disc bulging without disc protrusion or central or foraminal stenosis. Posterior facets are normal. L1-L2: Signal loss, moderate disc space narrowing and no disc bulge/protrusion or central or foraminal stenosis. Posterior facets are normal. L2-L3: Signal loss without disc space na rrowing. There are a few tiny annular fissures posteriorly. Minimal di sc bulging without disc protrusion or central or foraminal steno sis. Posterior facets show mild degenerative change, right greater than left. L3-L4: Signal loss, mild right-sided deg enerative disc space narrowing and minimal disc bulging without disc pr otrusion or central or foraminal stenosis. Mild posterior facet degenerative changes bilaterally. There is also mild thickeni ng of the ligamentum flavum. L4-L5: Signal loss without disc space na rrowing. Minimal disc bulging without disc protrusion. Moderate sheet rocker ior facet degenerative changes with subtle degenerative anterolisthesis . Borderline-mild central stenosis related to the bulging disc, ma rked thickening of the ligament flavum and dorsal epidural fat. No significant foraminal narrowing bilaterally. L5-S1: Signal loss without disc space na rrowing or disc bulge/protrusion. No central stenosis. M inimal left foraminal narrowing related to moderate posterior facet degenerative changes, left greater than right. IMPRESSION: 1. 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 Borderlin e-mild central stenosis L4-L5 related to multiple factors. No other ce ntral stenosis. 2. No significant foraminal narrowing th roughout the lumbar spine. 3. Curvature of the lumbar spine convex to the left. OJHN MARINO MD Fely Denton MD IMG MRI ORDERABLES documented in this encounter Visit Diagnoses Diagnosis Sciatica, right Hip pain, right Pain in joint, pelvic region and thigh documented in this encounter Care Teams Commercial Diver Relationship Specialty Start Date End Date Fely Denton MD PCP - General Family Practice 02/10/16 03/08/16 documented as of this encounter
--- OUTSIDE RECORDS SUMMARY | 2022-07-19 22:58 | XMS_ITS | Encounter Summary ---
:1940 Author Organization [place] Address [address] [place] [address] Care Team Providers Name Role Phone Lio Stone MD Primary Care Provider [phone] Reason for Visit Reason Comments Rectal Bleeding Encounter Details Date Type Department Care Team Description 06/28/2016 Emergency [facility] Leo Oropeza MD Rectal bleeding; [facility] Emergency Dep t [facility] Gastritis [address] [facility] [address] [place], [place] [id number] [phone] Social History Tobacco Use Types Packs/Day Years Used Date Smoking Tobacco: Never Smokeless Tobacco: Never Alcohol Use Standard Drinks/Week Comments No 0 (1 standard drink = 0.6 oz pure alcoho l) Sex Assigned at Date Recorded Not on file documented as of this encounter Last Filed Vital Signs Vital Sign Reading Time Taken Comments Blood Pressure 123/74 06/28/2016 10:00 PM CDT Pulse 93 06/28/2016 7:06 PM CDT Temperature 36.7 ??C (98.1 ??F) 06/28/2016 7:06 PM CDT Respiratory Rate 18 06/28/2016 7:06 PM CDT Oxygen Saturation 94% 06/28/2016 10:00 PM CDT Inhaled Oxygen Concentration - - Weight - - Height - - Body Mass Index - - documented in this encounter Discharge Instructions Discharge InstructionsAmLeo enciso MD - 06/28/2016 10:09 PM CDT Images from the original note were not included. Gastritis (Adult) Gastritis is??inflammation and??irritation of the stomach lining.??It can be present for a short time (acute) or be long lasting (chronic). Gastritis is often caused by infection with bacteria called??H pylori.??More than a third of people in the [place] have this bacteria in their bodies. In many cases,??H pylori??causes no problems or symptoms. In some people, though, the infection irritates the stomachlining and causes gastritis. Other causes of stomach irritation include drinking alcohol or taking pain-relieving medicines called NSAIDs (such as aspirin or ibuprofen).?? Symptoms of gastritis can include: ?? Abdominal pain or bloating ?? Loss of appetite ?? Nausea or vomiting ?? Vomiting blood or having black stools ?? Feeling more tired than usual An inflamed and irritated stomach lining is more likely to develop a sore called an ulcer. To help prevent this, gastritis should be treated. Home care If needed, medicines may be prescribed. If you have??H pylori??infection, treating it will likely relieve your symptoms. Other changes can help reduce stomach irritation and help it heal. ?? If you have been prescribed medicines for??H pylori??infection, take them as directed. Take all of the medicine until it is finished or your healthcare provider tells you to stop, even if you feel better. ?? Your healthcare provider may recommend avoiding NSAIDs. If you take daily aspirin for your heart or other medical reasons, do not stop without talking to your healthcare provider first. ?? Avoid drinking alcohol. ?? Stop smoking. Smoking can irritate the stomach and delay healing. As much as possible, stay away from second hand smoke. Follow-up care Follow up with your healthcare provider, or as advised by our staff. Testing may be needed to check for inflammation or an ulcer. When to seek medical advice Call your healthcare provider for any of the following: ?? Stomach pain that gets worse or moves to the lower right abdomen (appendix area) ?? Chest pain that appears or gets worse, or spreads to the back, neck, shoulder, or arm ?? Frequent vomiting (can???t keep down liquids) ?? Blood in the stool or vomit (red or black in color) ?? Feeling weak or dizzy ?? Fever of 100.4??F (38??C) or higher, or as directed by your healthcare provider ?? [phone] [employer]. [address] [place] [address], [place] [address]. All rights reserved. This information is not intended as a substitute for professional medical care. Always follow your healthcare professional's instructions. AttachmentsThe following attachments cannot be sent through Care Everywhere. RECTAL BLEEDING, EVALUATING AND TREATING (TAJIK)documented in this encounter Medications at Time of Discharge Medication Sig Dispensed Refills Start Date End Date pantoprazole (PROTONIX) Take 1 tablet (40 30 tablet 0 06/2807/03/2016 40 MG enteric coated mg) by mouth daily tablet Take 30-60 minutes before a meal. sertraline (ZOLOFT) 25 MG Take 1 tablet (25 90 tablet 1 08/201609/11/2016 tabletIndications: Major mg) by mouth daily depressive disorder, Take 25 mg by mouth recurrent episode, mild daily. If having a (H) bad day can take one extra tablet(PRN). documented as of this encounter ED Notes Jess Hutton RN - 06/28/2016 10:08 PM CDT at bedside. NDRAT Briseida Small RN - 06/28/2016 7:04 PM CDT Pt presents to ED with c/o rectal bleeding. Pt states it started this afternoon. States she had a liquid BM x 2 and it was black in color. Pt was on naprosyn usually only 1 time a day or every other day. States this is the first time she has ever had any dark stools or bleeding from her rectum. States she has some abdominal cramping and feels maybe she has had some progressive SOB when exerting herself, such as going up the stairs. Leo Oropeza MD - 06/28/2016 7:01 PM CDT History Chief Complaint: Dark stools HPI Lee Ann Herndon is a 76 year old female who presents with dark stools. The patient has been taking Naproxen daily to treat for hip arthritis and noticed some dark colored stools this morning. Her stools were noted to be normal up until today. She was concerned with possible GI bleed and decided to present to the ED for evaluation. She notes some weakness but denies fever, chills, nausea, vomiting,abdominal pain, diarrhea, lightheadedness, dizziness, or any other associated symptoms. The patient also noted that she was seen yesterday by her PCP for a check up and, although she is unsure why, hadlabs drawn then. Allergies: Cephalosporins Clindamycin Erythromycin Penicillins Sympathomimetics Tetracyclines Medications: Naproxen Zoloft Past Medical History:? 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 Past Surgical History:? Appendectomy D&C Hernia Repair Bilateral knee replacement Left ankle surgery Hernia repair Parathyroidectomy Family History:? Breast Cancer Social History: Marital Status:? Smoking status: Never Alcohol use: No Review of Systems Constitutional: Negative for fever and chills. Gastrointestinal: Negative for nausea, vomiting, abdominal pain and diarrhea. Melena Neurological: Positive for weakness. Negative for dizziness and light-headedness. All other systems reviewed and are negative. Physical Exam Patient Vitals for the past 24 hrs: BP Temp Temp src Pulse Heart Rate Resp SpO2 06/28/16 2200 123/74 mmHg - - - - - 94 % 06/28/16 2140 110/64 mmHg - - - 88 - 93 % 06/28/162121 132/55 mmHg - - - - - 95 % 06/28/162000 145/86 mmHg - - - 80 - 94 % 06/28/161958 - - - - - - 93 % 06/28/16 190 176/90 mmHg 98.1 ??F (36.7 ??C) Oral 93 93 18 93 % Physical Exam Nursing note and vitals reviewed. Constitutional: Cooperative. HENT: Mouth/Throat: Mucous membranes are normal. Cardiovascular: Normal rate, regular rhythm and normal heart sounds. No murmur. Pulmonary/Chest: Effort normal and breath sounds normal. No respiratory distress. No wheezes. No rales. Abdominal: Soft. Normal appearance and bowel sounds are normal. No distension. There is no tenderness. There is no rigidity and no guarding. Rectal: brown stool noted in the rectal vault. Neurological: Alert. Skin: Skin is warm and dry. No rash noted. Psychiatric: Normal mood and affect. Emergency Department Course Laboratory: 1909: CBC: WBC 7.6 (WNL) HGB 10.9 (L) PLT 168 (WNL) 1909: CMP: Cr 1.09 (H) Glucose 92 (WNL). GFR 49. Calcium 8.4. Rest WNL 2114: Hemoglobin: 10.4 (L) Occult Blood Stool: positive INR: 1.02 (WNL) PTT: 31 (WNL) ABO/Rh: A+ Interventions: 2121: Protonix 40 mg IV ED Course: The patient arrived in triage where her vitals were measured and recorded. The patient was then escorted back to the emergency department. Nursing notes and past medical history reviewed. I performed a physical examination of the patient as documented above. I explained the plan with the patient who consents to this. A peripheral IV was established. Blood was drawn and sent to the laboratory for testing, see above results. The patient received the above interventions. I personally reviewed the laboratory results with the Patient and answered all related questions prior to discharge. Findings and plan explained to the Patient. Patient discharged home with instructions regarding supportive care, medications, and reasons to return. The importance of close follow-up was reviewed. Impression & Plan Medical Decision Making: Patient is a 76 year old female who presents with dark stools. On my exam, she has a brown stool butthis microscopically positive for blood. Hemoglobin is 10.9 and on recheck 2 hours later was 10.4. She is hemodynamically stable. We discussed admission versus outpatient with close follow up option and she would very much like to go home. She is here with her who lives close by and I think this is very reasonable. I will start her on a proton pump inhibitor and she did receive IV Protonix here. She uses Naproxen regularly and I suspect NSAID induced gastritis is the cause of her microscopicbleeding. Appropriate return precautions were discussed specifically if she has any more black stools she needs to return for a recheck on her hemoglobin, otherwise she will be discharged home in stable condition. Diagnosis: ICD-10-CM 1. Rectal bleeding K62.5 2. Gastritis K29.70 Disposition: Discharge to home. Discharge Medications: New Prescriptions PANTOPRAZOLE (PROTONIX) 40 MG ENTERIC COATED TABLET Take 1 tablet (40 mg) by mouth daily Take 30-60minutes before a meal. I, Loy Mansfield, am serving as a scribe on 06/28/2016 at 7:01 PM to personally document services performed by Leo Oropeza MD, based on my observations and the provider's statements to me. Leo Oropeza MD 06/28/16 2342 documented in this encounter Plan of Treatment Not on filedocumented as of this encounter Procedures Procedure Name Priority Date/Time Associated Comments Diagnosis HEMOGLOBIN Timed 06/28/2016 9:15 PM Results f or this CDT procedure are i n the results section. OCCULT BLOOD STOOL STAT 06/28/2016 7:15 PM Res ults for this CDT procedure are i n the results section. CBC WITH PLATELETS & STAT 06/28/2016 7:10 PM R esults for this DIFFERENTIAL CDT procedure are i n the results section. INR STAT 06/28/2016 7:10 PM Results f or this CDT procedure are i n the results section. PARTIAL THROMBOPLASTIN STAT 06/28/2016 7:10 PM Results for this TIME CDT procedure are i n the results section. COMPREHENSIVE METABOLIC STAT 06/28/2016 7:10 PM Results for this PANEL CDT procedure are i n the results section. ABO/RH TYPE AND SCREEN STAT 06/28/2016 7:10 PM Results for this CDT procedure are i n the results section. documented in this encounter Results (ABNORMAL) Hemoglobin (06/28/2016 9:15 PM CDT) athologist Signature Hemoglobin 10.4 (L) 11.7 - 15.7 [place] g/dL [facility] Specimen Anatomical Collection Method Collection Time Receive d Time (Source) Location / / Volume Laterality Blood specimen 06/28/2016 9:15 PM 016 9:22 (specimen) CDT PM CDT Leo Oropeza MD LAB - BLOOD ORDERABLES Performing Organization Address City/[facility]/ZIP Code Phon e Number M [facility] [address] [place], [place] [address] [facility] [address] [place], [place] [address], [facility] [phone] (ABNORMAL) Occult blood stool (06/28/2016 7:15 PM CDT) [facility] Method Time Signature Occult Blood Positive NEG [place] CORRECTED ON 06/28 AT 1934: PREVIOUSLY REPORTED [id number] CORRECTED ON [facility] 06/28 AT 1931: PREVIOUSLY REPORTED Positive HOSPITAL (A) Specimen Anatomical Collection Method Collection Time Receive d Time (Source) Location / / Volume Laterality Stool specimen 06/28/2016 7:15 PM 016 7:28 (specimen) CDT PM CDT Leo Oropeza MD LAB - STOOLS ORDERABLES Performing Organization Address City/[facility]/ZIP Code Phon e Number M [facility] [address] [place], [place] [address] [facility] [address] [place], [place] [address], [facility] [phone] ABO/Rh type and screen (06/28/2016 7:10 PM CDT) [facility] Signature ABO A [facility] RH(D) Pos [facility] Antibody Neg [place] Screen [facility] Test Valid [facility] HOSPITAL Specimen 07/01/2016 [facility] Specimen Anatomical Collection Method Collection Time Receive d Time (Source) Location / / Volume Laterality Blood specimen 06/28/2016 7:10 PM 016 7:36 (specimen) CDT PM CDT Leo Oropeza MD LAB - BLOOD BANK TEST ORDER Performing Organization Address City/[facility]/ZIP Code Phon e Number M [facility] [address] [place], [place] [address] [facility] [address] [place], [place] [address] [facility] [phone] (ABNORMAL) Comprehensive metabolic panel (06/28/2016 7:10 PM CDT) Analysis Performed At Patho logist Time Signature Sodium 142 133 - 144 [place] mmol/L [facility] Potassium 4.0 3.4 - 5.3 [place] mmol/L [facility] Chloride 109 94 - 109 [place] mmol/L [facility] Carbon Dioxide 27 20 - 32 [place] mmol/L [facility] Anion Gap 6 3 - 14 [place] mmol/L [facility] Glucose 92 70 - 99 [place] mg/dL [facility] Urea Nitrogen 24 7 - 30 [place] mg/dL [facility] Creatinine 1.09 (H) 0.52 - [place] 1.04 mg/dL [facility] GFR Estimate 49 (L) >60 [place] mL/min/1.7 [facility] m2 HOSPITAL Comment: Non GFR Calc GFR Estimate If Black 59 (L) >60 mL/min/1.7m2 F [facility] Comment: GFR Calc Calcium 8.4 (L) 8.5 - 10.1 mg/dL [facility] Bilirubin Total 0.3 0.2 - 1.3 mg/dL [facility] Albumin 3.5 3.4 - 5.0 g/dL [facility] Protein Total 6.8 6.8 - 8.8 g/dL [facility] Alkaline Phosphatase 82 40 - 150 U/L [facility] ALT 17 0 - 50 U/L [facility] AST 14 0 - 45 U/L [facility] [place] Specimen Anatomical Collection Method Collection Time Receive d Time (Source) Location / / Volume Laterality Blood specimen 06/28/2016 7:10 PM 016 7:36 (specimen) CDT PM CDT Leo Oropeza MD LAB - BLOOD ORDERABLES Performing Organization Address City/State/ZIP Code Phon e Number M [facility] [address] [place], [place] [address] [facility] [address] [place], [place] [address] [phone] Partial thromboplastin time (06/28/2016 7:10 PM CDT) P athologist Signature PTT 31 22 - 37 sec [facility] Specimen Anatomical Collection Method Collection Time Receive d Time (Source) Location / / Volume Laterality Blood specimen 06/28/2016 7:10 PM 016 7:36 (specimen) CDT PM CDT Leo Oropeza MD LAB - BLOOD ORDERABLES Performing Organization Address City/[facility]/ZIP [facility] Phon e Number [facility] [address] [place], [place] [address] [facility] [address] [place] [address], [facility] [phone] INR (06/28/2016 7:10 PM CDT) athologist Signature INR 1.02 0.86 - 1.14 [facility] Specimen Anatomical Collection Method Collection Time Receive d Time (Source) Location / / Volume Laterality Blood specimen 06/28/2016 7:10 PM 016 7:36 (specimen) CDT PM CDT Leo Oropeza MD LAB - BLOOD ORDERABLES Performing Organization Address City/[facility] Phon e Number M [facility] [address] [place] [address] [facility] [address] [place] [address], [facility] [phone] (ABNORMAL) CBC with platelets differential (06/28/2016 7:10 PM CDT) Patholo gist Method Time Signature WBC 7.6 4.0 - [place] 11.0 [facility] 10e9/L HOSPITAL RBC Count 4.15 3.8 - 5.2 [place] 10e12/L [facility] Hemoglobin 10.9 (L) 11.7 - [place] 15.7 g/dL [facility] Hematocrit 36.9 35.0 - [place] 47.0 % [facility] MCV 89 78 - 100 [facility] MCH 26.3 (L) 26.5 - [place] 33.0 pg [facility] MCHC 29.5 (L) 31.5 - [place] 36.5 g/dL [facility] RDW 16.0 (H) 10.0 - [place] 15.0 % [facility] Platelet Count 168 150 - 450 [place] [id number] [facility] Diff Method Automated [facility] % Neutrophils 54.3 % [facility] % Lymphocytes 32.0 % [facility] % Monocytes 8.1 % [facility] % Eosinophils 4.8 % [facility] % Basophils 0.4 % [facility] % Immature 0.4 % [place] Granulocytes [facility] Nucleated RBCs 0 0 /100 [facility] Absolute 4.1 1.6 - 8.3 [place] Neutrophil 10e9/L [facility] Absolute 2.4 0.8 - 5.3 [place] [facility] Absolute 0.6 0.0 - 1.3 [place] Monocytes [address] [place] [address] Absolute 0.4 0.0 - 0.7 [place] Eosinophils [address] [place] [address] Absolute 0.0 0.0 - 0.2 [place] Basophils [address] [place] [address] Abs Immature 0.0 0 - 0.4 [place] Granulocytes [address] [place] [address] Absolute 0.0 [place] Nucleated RBC [facility] Specimen Anatomical Collection Method Collection Time Receive d Time (Source) Location / / Volume Laterality Blood specimen 06/28/2016 7:10 PM 016 7:36 (specimen) CDT PM CDT Leo Oropeza MD LAB - BLOOD ORDERABLES Performing Organization Address City/State/ZIP Code Phon e Number M [place] [address] [place], [place] [address] [phone] [facility] [address] [phone] documented in this encounter Visit Diagnoses Diagnosis Rectal bleeding Hemorrhage of rectum and anus Gastritis Unspecified gastritis and gastroduodenit is without mention of hemorrhage documented in this encounter Administered Medications Inactive Administered Medications - up to 3 most recent administrations Medication Order MAR Action Action Date Dose Rate Site pantoprazole (PROTONIX) 40 mg IV Given 06/28/2016 9:22 PM CDT 40 mg push injection 40 mg, Intravenous, ONCE, Administer over 2 Minutes, On Sun06/28/16 at 2031, For 1 dose, Reconstitute vial with 10mLs Saline and administer IV Push documented in this encounter Active and Recently Administered Medications Times are shown in CDT. Scheduled Medication Order 06/26/2016 06/27/2016 06/28/2016 pantoprazole (PROTONIX) 40 mg IV push injection (COMPLETED) 2121 (Given - Provider: Briseida Small RN) 40 mg, Intravenous, ONCE, for 2 Minutes, 06/28/16 at 2030, For 1 dose, Reconstitute vial with 10mLs Saline and administer IV Push documented in this encounter Additional Health Concerns Assessment Noted Time PHQ-9 Depression Total Score: 18 06/28/2016 7:24 AM CD T documented as of this encounter Care Teams Dispatch Clerk Relationship Specialty Start Date End Date Lio Stone MD PCP - General Family Practice 06/19/16 [address] [place] [address] documented as of this encounter
--- OUTSIDE RECORDS SUMMARY | 2022-07-19 22:58 | XMS_ITS | Encounter Summary ---
:1940 Author Organization [place] Address [address] [place] [address] Care Team Providers Name Role Phone Korin Gutierrez DO Primary Care Provider Encounter Details Date Type Department Care Team Description 03/09/2016 Radiant Appointment [facility] Korin Gutierrez Hip pain, right [address] [place] [address] [facility] [phone] [place] [address] Social History Tobacco Use Types Packs/Day Years Used Date Smoking Tobacco: Never Smokeless Tobacco: Never Alcohol Use Standard Drinks/Week Comments No 0 (1 standard drink = 0.6 oz pure alcoho l) Sex Assigned at Date Recorded Not on file documented as of this encounter Plan of Treatment Not on filedocumented as of this encounter Procedures Procedure Name Priority Date/Time Associated Diagnosis Comme nts XR HIP BILATERAL 2 Routine 03/09/2016 3:10 PM Hip pain, right Results for this VIEWS EACH CDT procedure are i n the results section. documented in this encounter Results XR Hip Bilateral 2 Views Each (03/09/2016 3:10 PM CDT) Anatomical Region Laterality Modality Hip Bilateral Computed Radiography Specimen (Source) Anatomical Location Collection Method / Collectio n Time Received Time / Laterality Volume Impressions 03/10/2016 7:35 AM CDT IMPRESSION: Negative. JAZZY ROWLAND MD Narrative 03/10/2016 7:35 AM CDT XR HIP BILATERAL 2 VIEWS EACH 03/10/2016 7:35 AM HISTORY: Pain in right hip ? Procedure Note Jazzy Rowland MD - 03/10/2016Formatt ing of this note might be different from the original. XR HIP BILATERAL 2 VIEWS EACH 03/10/2016 7:35 AM HISTORY: Pain in right hip IMPRESSION: Negative. JAZZY ROWLAND MD Korin Gutierrez DO IMG DIAGNOSTIC IMAGING ORDER BERNARD[place] documented in this encounter Visit Diagnoses Diagnosis Hip pain, right Pain in joint, pelvic region and thigh documented in this encounter Additional Health Concerns Assessment Noted Time PHQ-9 Depression Total Score: 03/10/2016 7:14 AM CD T documented as of this encounter Care Teams Core Rescuer Relationship Specialty Start Date End Date Korin Gutierrez DO PCP - General Family Practice 03/09/16 06/18/16 documented as of this encounter
--- OUTSIDE RECORDS SUMMARY | 2022-07-19 22:58 | XMS_ITS | Encounter Summary ---
:1940 Author Organization [place] Address [facility] [place] [address] Care Team Providers Name Role Phone Julia White MD Primary Care Provider Reason for Visit Reason Comments RECHECK 1 mo, blood pressure Encounter Details Date Type Department Care Team Description 06/05/2014 Office Visit [facility] Fely Denton HTN, go al below 140/90 (Primary Dx); Clinic Sg Gordillo MD Obesity; [place] [address] [facility] [address], [address], [address] [place] [address] [place], [place] [phone] (Wo rk) [id number] [phone] Social History Tobacco Use Types Packs/Day Years Used Date Smoking Tobacco: Never Smokeless Tobacco: Never Alcohol Use Standard Drinks/Week Comments No 0 (1 standard drink = 0.6 oz pure alcoho l) Sex Assigned at Date Recorded Not on file documented as of this encounter Last Filed Vital Signs Vital Sign Reading Time Taken Comments Blood Pressure 130/88 06/05/2014 10:00 AM CDT Pulse 76 06/05/2014 10:00 AM CDT Temperature 36.9 ??C (98.5 ??F) 06/05/2014 10:00 AM CDT Respiratory Rate 20 06/05/2014 10:00 AM CDT Oxygen Saturation - - Inhaled Oxygen Concentration - - Weight - - Height - - Body Mass Index - - documented in this encounter Progress Notes Fely Denton MD - 06/05/2014 9:52 AM CDT SUBJECTIVE: Lee Ann Herndon is a 74 year old female who presents to clinic today for the following health issues: Hypertension Follow-up ?? Outpatient blood pressures are being checked at home and store. Results are 130/80. ?? Low Salt Diet: not monitoring salt ?? Now taking her med daily, amlodipine, no longer has ringing in her ears, feels well ?? Amount of exercise or physical activity: 6-7 days/week for an average of 15- 30 minutes ?? Problems taking medications regularly: No ?? Medication side effects: none ?? Diet: [employer]riSystem diet History Substance Use Topics ??? Smoking status: Never Smoker ??? Smokeless tobacco: Never Used ??? Alcohol Use: No Worries about Grandson, age 23, patient raised him, and rides atv, has an accident and he is ok, butstill worries a lot. See RUDDY, and PHQ-9 Takes zquil once per week , this helps her sleep. Problem list and histories reviewed & adjusted, as indicated. Additional history: as documented PROBLEMS TO ADD ON...did PHYSICAL THERAPY, and had to pay 20$ per visit, and paid 100$ for 1 month, and now improving, doing the exercises at home. Feels it was not worth it. Did feel a small twinge when picking up grandson, but doing better now, is walking every day. Is on weight reduction program, nutrisytem, not hungry, and loosing 12# so far Labs reviewed in [facility] Problem list, Medication list, Allergies, and Medical/Social/Surgical histories reviewed in [facility] andupdated as appropriate. ROS: C: NEGATIVE for fever, chills, change in weight E/M: NEGATIVE for ear, mouth and throat problems R: NEGATIVE for significant cough or SOB CV: NEGATIVE for chest pain, palpitations or peripheral edema OBJECTIVE: BP 130/88 Pulse 76 Temp(Src) 98.5 ??F (36.9 ??C) (Oral) Resp 20 Wt ? No Body mass index is 0.00 kg/(m^2). GENERAL: healthy, alert, well nourished, well hydrated, no distress RESP: lungs clear to auscultation - no rales, no rhonchi, no wheezes CV: regular rates and rhythm, normal S1 S2, no S3 or S4 and no murmur, no click or rub - MS: extremities- no gross deformities noted, no edema SKIN: no suspicious lesions, no rashes ASSESSMENT/PLAN: (401.9) HTN, goal below 140/90 (primary encounter diagnosis) Comment: well controlled Plan: continue same, patient doing well (278.00) Obesity Comment: working on her own with diet, exercise Plan: (724.5) Backache, unspecified Comment: doing much better, continue home exercises Plan: Follow up with Provider - 6 month Fely Denton MD [facility] documented in this encounter Nursing Notes Apurva Skinner MA - 06/05/2014 10:05 AM CDT Chief Complaint Patient presents with ??? RECHECK 1 mo, blood pressure Initial BP 130/88 Pulse 76 Temp(Src) 98.5 ??F (36.9 ??C) (Oral) Resp 20 Wt ? No Estimated body mass index is 0.00 kg/(m^2) as calculated from the following: Height as of 04/28/14: 5' 1.75 (1.568 m). Weight as of this encounter: 0 lb (0 kg). BP completed using cuff size: large Apurva Skinner MA documented in this encounter Plan of Treatment Not on filedocumented as of this encounter Visit Diagnoses Diagnosis HTN, goal below 140/90 - Primary Unspecified essential hypertension Obesity Obesity, unspecified Backache, unspecified documented in this encounter Care Teams Outboard Technician Relationship Specialty Start Date End Date Julia White MD PCP - General Family Practice 12/18/13 11/01/14 [id number] [place] [address] documented as of this encounter
--- OUTSIDE RECORDS SUMMARY | 2022-07-19 22:58 | XMS_ITS | Encounter Summary ---
:1940 Author Organization [facility] Address [address] [place] [address] Care Team Providers Name Role Phone Julia White MD Primary Care Provider Reason for Visit Reason Comments Muscle Pain Encounter Details Date Type Department Care Team Description 01/29/2016 [facility] Carlee Ngo MD [facility] Emergency Dept [facility] [address] [place] [address] [place] [address] [phone] (Wo rk) Social History Tobacco Use Types Packs/Day Years Used Date Smoking Tobacco: Never Smokeless Tobacco: Never Alcohol Use Standard Drinks/Week Comments No 0 (1 standard drink = 0.6 oz pure alcoho l) Sex Assigned at Date Recorded Not on file documented as of this encounter Last Filed Vital Signs Vital Sign Reading Time Taken Comments Blood Pressure 126/71 01/29/2016 9:25 AM CDT Pulse 84 01/29/2016 7:50 AM CDT Temperature 36.7 ??C (98.1 ??F) 01/29/2016 7:50 AM CDT Respiratory Rate 20 01/29/2016 7:50 AM CDT Oxygen Saturation 93% 01/29/2016 9:25 AM CDT Inhaled Oxygen Concentration - - Weight 102.1 kg (225 lb) 01/29/2016 7:50 AM CDT Height 157.5 cm (5' 2) 01/29/2016 7:50 AM CDT Body Mass Index 41.15 01/29/2016 7:50 AM CDT documented in this encounter Discharge Instructions Discharge InstructionsCarlee Ngo MD - 01/29/2016 9:53 AM CDT Images from the original note were not included. Please follow up with your regular physician closely. Please return to the ED if your symptoms worsen or if you develop new or concerning symptoms. Muscle Spasm A muscle spasm (also called a cramp) is an involuntary muscle contraction. The muscle tightens quickly and strongly. A hard lump may form in the muscle. Muscle spasms are very painful. Read on to learnmore about muscle spasms and how to treat and prevent them. What Causes Muscles to Spasm? Often, the cause of a muscle spasm is not known.??Muscle spasm is due to irritation of muscle fibers. Some things can make a muscle spasm more likely. These include: ?? Injury ?? Heavy exercise ?? Overtired muscles ?? A muscle held in one position for a long time ?? Dehydration ?? Low levels of certain minerals in the body ?? Taking certain medications, such as diuretics or water pills ?? Certain medical conditions, such as kidney failure or diabetes ?? Being Stopping a Muscle Spasm Muscle spasms often come and go quickly. When a muscle goes into spasm, very gently stretch and massage the muscle. This may help calm the muscle fibers. Then rest the muscle. Preventing Muscle Spasms Although there is little or no evidence that staying hydrated, taking certain vitamins or minerals or stretching works to prevent cramps, these measures may help and have other benefits. Talk to your??health care provider??about steps to take to avoid muscle spasms. These may include: ?? Drinking enough fluids to avoid dehydration, especially when you exercise. ?? Taking vitamin or mineral supplements. ?? Getting regular exercise. ?? Stretching regularly. ?? Taking lako-iql-euwouim medications such as ibuprofen or naproxen. ?? Taking a prescription muscle relaxant. ?? [id number] [employer] [address] [place] [address], [place] [address]. All rights reserved. This information is not intended as a substitute for professional medical care. Always follow your healthcare professional's instructions. documented in this encounter Medications at Time of Discharge Medication Sig Dispensed Refills Start Date End Date cyclobenzaprine (FLEXERIL) Take 1 tablet (10 20 tablet 0 02/04/2016 10 MG tablet mg) by mouth 3 times daily as needed for muscle spasms IBUPROFEN PO Take 200 mg by 0 06/28/20 16 mouth as needed for moderate pain [id number] Zzzquil, take 1 0 capsule daily as needed sertraline (ZOLOFT) 25 MG Take 25 mg by mouth 0 02/10/2016 tablet daily. If having a bad day can take one extra tablet(PRN). documented as of this encounter ED Notes Annalisa Frazier RN - 01/29/2016 7:48 AM CDT Muscle pains to all extremities that feel like charley horses. Has been going on for a couple of weeks but has been getting steadily worse. Pain intensified that patient felt that she needed to be seen today. Worst in right leg, hip, and gluteus. Carlee Ngo MD - 01/29/2016 7:47 AM CDT History Chief Complaint: Muscle pain HPI Lee Ann Herndon is a 75 year old female who presents with muscle aches to her extremities. Claudeicedescribes feeling pain in her extremities (bilateral upper and lower) but worse in the right leg starting a few weeks ago, and continually persisting waxing and waning and increasing. This pain is whatbrings her to the ED today, and describes it as a ???Santo horse?? -like spasms. She describes mild pain starting without provocation, persisting and exacerbating to the point of causing her difficulty walking. She also describes bilateral tingling in hands, but this has been a chronic condition. She has also had chronic hypocalcemia in the past, despite drinking milk and taking calcium supplements (which she does not tolerate well). She denies fever, rashes, history of blood clots or blood thinner use. She also describes normal eating, drinking, urine, and stool activity. 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 Gastrointestinal: Negative for diarrhea, constipation and blood in stool. Genitourinary: Negative for urgency, frequency, hematuria, decreased urine volume and difficulty urinating. Musculoskeletal: Positive for myalgias (waxing and waning spasms throughout extremities) and gait problem (difficulty walking due to pain). Skin: Negative for rash. Neurological: Positive for numbness (chronic bilateral @ upper extremity). Physical Exam Patient Vitals for the past 24 hrs: BP Temp Temp src Pulse Resp SpO2 Height Weight 01/29/16 0924 - - - - - 91 % - - 01/29/16 0923 130/71 mmHg - - - - - - - 01/29/16 0850 124/62 mmHg - - - - 96 % - - 01/29/16 0820 137/80 mmHg - - - - 94 % - - 01/29/16 0750 153/83 mmHg 98.1 ??F (36.7 ??C) Oral 84 20 96 % 1.575 m (5' 2) 102.059 kg (225 lb) Physical Exam Constitutional: The patient is oriented to person, place, and time. Alert and cooperative. HENT: Right Ear: External ear normal. Left Ear: External ear normal. Nose: Nose normal. Mouth/Throat: Uvula is midline, oropharynx is clear and moist and mucous membranes are normal. No posterior oropharyngeal edema or erythema. Eyes: Conjunctivae, EOM and lids are normal. Pupils are equal, round, and reactive to light. Neck: Trachea normal. Normal range of motion. Neck supple. Cardiovascular: Normal rate, regular rhythm, normal heart sounds, and intact distal pulses. Pulmonary/Chest: Effort normal and breath sounds equal bilaterally. No crackles or wheezing. Abdominal: Soft. No tenderness. No rebound and no guarding. Musculoskeletal: Normal range of motion. No bony extremity tenderness. Trace pitting edema to lower extremities bilaterally. Neurological: Alert and Oriented. Strength 5/5 in upper and lower extremities bilaterally. Sensationintact to light touch throughout. Skin: Skin is dry. Varicose veins to bilateral lower extremities. Emergency Department Course Imaging: Radiographic findings were communicated with the patient who voiced understanding of the findings. US Lower Extremities, Bilateral, Venous views: Findings: No DVT is demonstrated in either lower extremity. Impression: Negative Read by radiology. Laboratory: BMP: WNL (Creatinine 0.87) CBC: HGB 10.5 (L), MCHC 30.4(L), RDW 15.9(H) o/w WNL (WBC 5.2, HGB 10.5, PLT 153) Magnesium: 2.2 CK Total: 100 Interventions: NS 1L IV Bolus Toradol 15 mg IV Zofran 4 mg IV Emergency Department Course: Past medical records, nursing notes, and vitals reviewed. 0753: I performed an exam of the patient and obtained history, as documented above. IV inserted and blood drawn. The patient was sent for a Ultrasound while in the emergency department, findings above. I personally reviewed the laboratory results with the Patient and answered all related questions prior to discharge. I rechecked the patient. Findings and plan explained to the Patient. Patient discharged home with instructions regarding supportive care, medications, and reasons to return as well as the importance ofclose follow-up was reviewed. Impression & Plan Medical Decision Making: Lee Ann Herndon is a 75 year old female with a history of hypertension, gout, depression, GERD, and hypocalcemia who presents to the ED for evaluation of diffuse muscle cramps. Upon presentation to the ED, the patient is nontoxic appearing. She is hypertensive but vitals are otherwise within normallimits and stable. During her ED visit, her blood pressure improved to within normal limits. On exam, she is well appearing. She is alert, oriented, and neurologic exam is nonfocal. Cardiopulmonary exam is unremarkable and abdomen is soft and nontender throughout. On exam of her bilateral lower extremities, she does have trace pitting edema bilaterally with evidence of varicose veins. She has no bony tenderness throughout. She has full active range of motion of all her extremities without significant pain. She is neurovascularly intact. The rest of her exam is as mentioned above. She was given Toradol. CBC is remarkable for a hemoglobin of 10.5, but is otherwise unremarkable. CK is within normal limits. Magnesium is within normal limits. BMP is within normal limits. An ultrasound of the bilaterallower extremities was obtained and demonstrates no evidence of DVT. These results were discussed with the patient and she voiced understanding. The etiology of the patient???s symptoms is unclear at this time. Her work up here is relatively unremarkable. She has no evidence on exam to suggest an infectious process. Given that she is well appearing and, with an unremarkable work up, I do feel she can be discharged to home. I did discuss with the patient that I recommend [facility] and she notes understanding and agreement with this plan. She was provided a prescription for Flexeril. Return instructions were given. She was stable/improved at the time of discharge. Diagnosis: ICD-10-CM 1. Cramp of limb R25.2 Disposition: discharged to home Discharge Medications: Details cyclobenzaprine (FLEXERIL) 10 MG tablet Take 1 tablet (10 mg) by mouth 3 times daily as needed for muscle spasms, Disp-20 tablet, R-0, Local Print IJuan Daniel am serving as a scribe at 7:53 AM on 01/29/2016 to document services personally performed by Carlee Ngo MD based on my observations and the provider's statements to me. Carlee Ngo MD 01/29/162002 documented in this encounter Plan of Treatment Not on filedocumented as of this encounter Procedures Procedure Name Priority Date/Time Associated Comments Diagnosis US LOWER EXTREMITY STAT 01/29/2016 9:32 AM Res ults for this VENOUS DUPLEX CDT procedure are in BILATERAL the results section. CBC WITH PLATELETS & STAT 01/29/2016 8:07 AM R esults for this DIFFERENTIAL CDT procedure are i n the results section. MAGNESIUM STAT 01/29/2016 8:07 AM Results f or this CDT procedure are i n the results section. CK TOTAL STAT 01/29/2016 8:07 AM Results f or this CDT procedure are i n the results section. BASIC METABOLIC PANEL STAT 01/29/2016 8:07 AM Results for this CDT procedure are i n the results section. documented in this encounter Results Lower extremities, bilateral, venous US (01/29/2016 9:32 AM CDT) Anatomical Region Laterality Modality Vascular, Thigh, Leg Ultrasound Specimen (Source) Anatomical Location Collection Method / Collectio n Time Received Time / Laterality Volume Impressions 01/29/2016 9:33 AM CDT IMPRESSION: Negative. PARTH LOPEZ MD Narrative 01/29/2016 9:33 AM CDT US LOWER EXTREMITY VENOUS DUPLEX BILATERAL 01/29/2016 9:32 AM HISTORY: Bilateral leg pain. TECHNIQUE: Imaged deep venous structures of each lower extremity include the common femoral veins, superf icial femoral veins, popliteal veins, and visualized posterior deep hector f veins. ??Color flow and spectral Doppler with waveform analysis performed. COMPARISON: None. FINDINGS: No DVT is demonstrated in [facility] lower extremity. Procedure Note Parth Lopez MD - 01/29/2016 US LOWER EXTREMITY VENOUS DUPLEX BILATER AL 01/29/2016 9:32 AM HISTORY: Bilateral leg pain. TECHNIQUE: Imaged deep venous structures of each lower extremity include the common femoral veins, superf icial femoral veins, popliteal veins, and visualized posterior deep hector f veins. Color flow and spectral Doppler with waveform analysis performed. COMPARISON: None. FINDINGS: No DVT is demonstrated in [facility] lower extremity. IMPRESSION: Negative. PARTH LOPEZ MD Carlee Ngo MD IMG US ORDERABLES (ABNORMAL) CBC + differential (01/29/2016 8:07 AM CDT) [facility] Method Time Signature WBC 5.2 4.0 - [place] 11.0 [facility] 10e9/L HOSPITAL RBC Count 3.93 3.8 - 5.2 [place] 10e12/L [facility] Hemoglobin 10.5 (L) 11.7 - [place] 15.7 g/dL [facility] Hematocrit 34.5 (L) 35.0 - [place] 47.0 % [facility] MCV 88 78 - 100 [facility] MCH 26.7 26.5 - [place] 33.0 pg [facility] MCHC 30.4 (L) 31.5 - [place] 36.5 g/dL [facility] RDW 15.9 (H) 10.0 - [place] 15.0 % [facility] Platelet Count 153 150 - [address] Diff Method Automated [facility] % Neutrophils 58.2 % [facility] % Lymphocytes 30.2 % [facility] % Monocytes 7.3 % [facility] % Eosinophils 3.3 % [facility] % Basophils 0.4 % [facility] % Immature 0.6 % [place] Granulocytes [facility] Nucleated RBCs 0 0 /100 [facility] Absolute 3.0 1.6 - 8.3 [place] Neutrophil 10e9/L [facility] Absolute 1.6 0.8 - 5.3 [place] Lymphocytes 10e9/L [facility] Absolute 0.4 0.0 - 1.3 [place] Monocytes 10e9/L [facility] Absolute 0.2 0.0 - 0.7 [place] Eosinophils [address] [place] [address] Absolute 0.0 0.0 - 0.2 [place] Basophils 10e9[facility] Abs Immature 0.0 0 - 0.4 [place] Granulocytes [address] [place] [address] Absolute 0.0 [place] Nucleated RBC [facility] Specimen Anatomical Collection Method Collection Time Receive d Time (Source) Location / / Volume Laterality Blood specimen 01/29/2016 8:07 AM 016 8:22 (specimen) CDT AM CDT Carlee Ngo MD LAB - BLOOD ORDERABLES Performing Organization Address City/[facility]/ZIP Code Phon e Number [place] [address] [address] [place] [address] [phone] CK total (01/29/2016 8:07 AM CDT) P athologist Signature CK Total 100 30 - 225 [facility] Specimen Anatomical Collection Method Collection Time Receive d Time (Source) Location / / Volume Laterality Blood specimen 01/29/2016 8:07 AM 016 8:22 (specimen) CDT AM CDT Carlee Ngo MD LAB - BLOOD ORDERABLES Performing Organization Address City/State/ZIP Code Phon e Number [facility] [address] [address] [facility] [address] [place], [place] [address], [facility] [phone] Magnesium (01/29/2016 8:07 AM CDT) athologist Signature Magnesium 2.2 1.6 - 2.3 [facility] mg/dL HOSPITAL Specimen Anatomical Collection Method Collection Time Receive d Time (Source) Location / / Volume Laterality Blood specimen 01/29/2016 8:07 AM 016 8:22 (specimen) CDT AM CDT Carlee Ngo MD LAB - BLOOD ORDERABLES Performing Organization Address City/State/ZIP Code Phon e Number [place] [address] [address] [place], [place] [address] [place] [address] [address] [place], [place] [address], [facility] [phone] Basic metabolic panel (BMP) (01/29/2016 8:07 AM CDT) athologist Signature Sodium 139 133 - 144 [place] mmol/L [facility] Potassium 4.4 3.4 - 5.3 [place] mmol/L [facility] Chloride 109 94 - 109 [place] mmol/L [facility] Carbon Dioxide 24 20 - 32 [place] mmol/L [facility] Anion Gap 6 3 - 14 [place] mmol/L [facility] Glucose 99 70 - 99 [place] mg/dL [facility] Urea Nitrogen 18 7 - 30 [place] mg/dL [facility] Creatinine 0.87 0.52 - [place] 1.04 mg/dL [facility] GFR Estimate 63 >60 [place] mL/min/1.[address] Comment: Non GFR Calc GFR Estimate If Black 77 >60 mL/min/1.7m2 F [facility] Comment: GFR Calc Calcium 8.6 8.5 - 10.1 mg/dL [facility] Specimen Anatomical Collection Method Collection Time Receive d Time (Source) Location / / Volume Laterality Blood specimen 01/29/2016 8:07 AM 016 8:22 (specimen) CDT AM CDT Carlee Ngo MD LAB - BLOOD ORDERABLES Performing Organization Address City/State/ZIP Code Phon e Number [facility] [address], [place] [address] [facility] [address] [place], [place] [address] [phone] documented in this encounter Visit Diagnoses Diagnosis Cramp of limb documented in this encounter Administered Medications Inactive Administered Medications - up to 3 most recent administrations Medication Order MAR Action Action Date Dose Rate Site 0.9% sodium chloride BOLUS New Bag 01/29/2016 8:06 AM CDT 1,000 mLs 1000 mL/hr Intravenous, 1,000 mL, ONCE, at 1,000 mL/hr, Administer over 1 Hours, On 01/29/16 at 0752, For 1 dose ketorolac (TORADOL) injection 15 mg Given 01/29/2016 8:34 AM CDT 15 mg 15 mg, Intravenous, ONCE, On 01/29/16 at 0811, For 1 dose ondansetron (ZOFRAN) injection 4 mg Given 01/29/2016 8:33 AM CDT 4 mg 4 mg, Intravenous, ONCE, Administer over 2-5 Minutes, On 01/29/16 at 0811, For 1 dose documented in this encounter Active and Recently Administered Medications Times are shown in CDT. Scheduled Medication Order 01/27/2016 01/28/2016 01/29/2016 0.9% sodium chloride BOLUS (COMPLETED) 0806 (New Bag - Provider: Annalisa Frazier RN)0953 (Stopped - Provider: Annalisa Frazier RN) Intravenous, 1,000 mL, ONCE, at 1,000 mL /hr, Administer over 1 Hours, On 01/29/16 at 0752, For 1 dose ketorolac (TORADOL) injection 15 mg (COMPLETED) 0834 (Given - Provider: Annalisa Frazier, RN) 15 mg, Intravenous, ONCE, 01/29/16 at 0811, For 1 dose ondansetron (ZOFRAN) injection 4 mg (COMPLETED) 832 (Given - Provider: Annalisa Frazier, RN) 4 mg, Intravenous, ONCE, for 2 Minutes, 01/29/16 at 0811, For 1 dose documented in this encounter Care Teams Radiotelegraph Operator Relationship Specialty Start Date End Date Julia White MD PCP - General Family Practice 01/29/16 02/09/16 [address] [place] [address] documented as of this encounter
--- OUTSIDE RECORDS SUMMARY | 2022-07-19 22:58 | XMS_ITS | Encounter Summary ---
:1940 Author Organization [place] Address [address] [place] [address] Care Team Providers Name Role Phone Julia White MD Primary Care Provider Reason for Visit [facility] (Routine) - Closed Specialty Diagnoses / Procedures Referred By Contact Refer red To Contact Fely Denton MD [facility] & [address] [facility] - [address] [address] [facility] [address] [place] [address] Phone: Fax: Referral ID Status Reason Start Date Expiration Date Visits V isits Requested Authorized [facility]/UCARE/LBP/ Closed 04/29/2014 08/14/2014 8 [id number] Encounter Details Date Type Department Care Team Description 05/01/2014 Therapy Visit [facility] Christal Mathew ( Primary Dx) Rehabilitation Services [facility] [place] [address] [facility] [id number] [place] [address] [address] [place] [phone] Social History Tobacco Use Types Packs/Day Years Used Date Smoking Tobacco: Never Smokeless Tobacco: Never Alcohol Use Standard Drinks/Week Comments No 0 (1 standard drink = 0.6 oz pure alcoho l) Sex Assigned at Date Recorded Not on file documented as of this encounter Progress Notes Shahrzad Stevenson - 05/01/2014 10:42 AM CDT Subjective: Pertinent medical history includes: Osteoarthritis, overweight, high blood pressure and depression.Medical allergies: yes (Antibiotics). Other surgeries include: Orthopedic surgery (Knees, ankle). Current medications: Muscle relaxants, anti-depressants and high blood pressure medication. 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 Barriers include: None as reported by patient. Red flags: None as reported by patient. Oswestry Score: 28 % Objective: System Physical Exam General ROS Assessment/Plan: Darnell Mathew, PT - 05/01/2014 9:37 AM CDT Subjective: Lee Ann Herndon is a 74 year old female with a lumbar condition. Condition occurred with: Insidious onset. Condition occurred: for unknown reasons. This is a new condition Pt c/o LBP since 01/2014. Denies injury. MD visit date 04/28/14. Uses cane due to previous L ankle surgery, but has been walking less due to LBP.. Patient reports pain: Thoracic spine right, thoracic spine left, central thoracic spine, upper thoracic spine, mid thoracic spine, lower thoracic spine, lumbar spine right, lumbar spine left, central lumbar spine, upper lumbar spine, mid lumbar spine and lower lumbar spine (L>R). Pain is described as sharp, shooting and stabbing and reported as 3/10 and 9/10. Associated symptoms: Loss of motion/stiffness and loss of strength. Pain is the same all the time. Symptoms are exacerbated by bending, twisting and lifting and relieved by nothing and muscle relaxants. Since onset symptoms are gradually worsening. General health as reported by patient is good. Objective: Gait: Assistive Devices: Cane Lumbar/SI Evaluation ROM: Arom wnl lumbar: poor martine to all ROM, rep testing increased pain and decreased ROM. AROM Lumbar: Flexion: Min loss +/- Ext: Mod/max loss + Side Bend: Left: Min/mod loss + Right: Mod loss + Rotation: Left: Right: Side [place]: Left: Min/mod loss + Right: Min/mod loss + Strength: poor core stab recruitment. abd strength 2-/5 Lumbar Myotomes: Lumbar myotomes: B L/E grossly 4-/5 (L ankle 3 to 3+/5. Neural Tension/Mobility: Left side: Slump and Priyank-Lumbar positive. Right side: Slump and Priyank-Lumbar positive. Lumbar Palpation: Tenderness present at Left: Quadratus Lumborum and Erector Spinae Tenderness present at Right: Quadratus Lumborum and Erector Spinae Functional Tests: Single Leg Bridge: Left: Right: % of Uninvolved: N/A General ROS Assessment/Plan: Patient is a 74 year old female with lumbar complaints. Patient has the following significant findings with corresponding treatment plan. Diagnosis 1: LBP Pain - hot/cold therapy, US, electric stimulation, manual therapy, directional preference exercise and home program Decreased ROM/flexibility - manual therapy and therapeutic exercise Decreased strength - therapeutic exercise and therapeutic activities Decreased proprioception - neuro re-education and therapeutic activities Impaired gait - gait training Impaired muscle performance - neuro re-education Decreased function - therapeutic activities Impaired posture - neuro re-education Previous and current functional limitations: (See Goal Flow Sheet for this information) Short term and skilled nursing goals: (See Goal Flow Sheet for this information) Communication ability: Patient appears to be able to clearly communicate and understand verbal and written communication and follow directions correctly. Treatment Explanation - The following has been discussed with the patient: RX ordered/plan of care Anticipated outcomes Possible risks and side effects This patient would benefit from PT intervention to resume normal activities. Rehab potential is fair. Frequency: 1 X week, once daily Duration: for 8 weeks Discharge Plan: Achieve all LTG. Independent in home treatment program. Reach maximal therapeutic benefit. Please refer to the daily flowsheet for treatment today, total treatment time and time spent performing 1:1 timed codes. documented in this encounter Plan of Treatment Not on filedocumented as of this encounter Procedures Procedure Name Priority Date/Time Associated Diagnosis Comme nts [facility] NEUROMUSCULAR Routine 05/01/2014 10:32 AM Lumbago RE-EDUCATION CDT [facility] HOT OR COLD PACKS Routine 05/01/2014 10:32 AM Lumbago THERAPY CDT documented in this encounter Visit Diagnoses Diagnosis Lumbago - Primary documented in this encounter Care Teams Imaging Services Director Relationship Specialty Start Date End Date Julia White MD PCP - General Family Practice 12/18/13 11/01/14 [address] [place] [address] documented as of this encounter
--- OUTSIDE RECORDS SUMMARY | 2022-07-19 22:58 | XMS_ITS | Encounter Summary ---
:1940 Author Organization [place] Address [address] [place] [address]. [place] [address] Care Team Providers Name Role Phone Fely Denton MD Primary Care Provider [phone] Reason for Visit Reason Onset Date Comments Refill Request 12/24/2014 Amlodipine 5 MG Encounter Details Date Type Department Care Team Description 12/24/2014 Refill [facility] Fely Denton Refill Request Clinic Sg Gordillo MD (Amlodipine 5 MG) [address] [place] [address] [place], [place] [phone] (Wo rk) [address] [phone] Social History Tobacco Use Types Packs/Day Years Used Date Smoking Tobacco: Never Smokeless Tobacco: Never Alcohol Use Standard Drinks/Week Comments No 0 (1 standard drink = 0.6 oz pure alcoho l) Sex Assigned at Date Recorded Not on file documented as of this encounter Miscellaneous Notes Telephone Encounter - Melly Esposito RN - 12/24/2014 2:17 PM CDT Per June pt needed to follow up in 6 months. Spoke with patient and she is currently taking care of her grandson in [facility] and does not know when she will be back (he had a subdural hematoma and cannot drive). Sent in one month until she is able to get back down here. Melly Esposito RN, BSN Telephone Encounter - Matt Sykuldeep Oumou Kellen - 12/24/2014 2:09 PM CDT [facility] refill request Amlodipine 5 MG Qty 30 Last OV: 09/01/2015 Last Refill: 06/18/2014 HYPERTENSION MEDS BP Readings from Last 3 Encounters: 09/01/14 138/92 06/05/14 130/88 04/28/14 152/100 Potassium Date Value Ref Range Status 09/01/2014 4.6 3.4 - 5.3 mmol/L Final ] Creatinine Date Value Ref Range Status 09/01/2014 0.87 0.52 - 1.04 mg/dL Final CALCIUM CHANNEL BLOCKERS Calan/Verelan/IsoptinSR (verapamil) Cardizem/Dilacor/Cartia/Tiazac (diltiazem) Norvasc (amlodipine) Plendil, Procardia/Adalat, Sular OV AND REFILLS Q 12 MTHS IF BP <140/90 OV AND REFILLS Q 6 MTHS IF BP >140/90 DM <140/90 Vascular Disease: <130/80 Tests: Annual Creatinine If BP reviewed and plan is noted, can refill. Recheck BP and labs in 1-2 mths after dosage change If BP is still elevated and labs are abnormal, forward to provider. documented in this encounter Plan of Treatment Not on filedocumented as of this encounter Visit Diagnoses Diagnosis HTN, goal below 140/90 - Primary Unspecified essential hypertension documented in this encounter Care Teams Roller Embosser Relationship Specialty Start Date End Date Fely Denton MD PCP - General Family Practice 11/02/14 01/28/16 documented as of this encounter
--- OUTSIDE RECORDS SUMMARY | 2022-07-19 22:58 | XMS_ITS | Encounter Summary ---
:1940 Author Organization [place] Address [facility] [address] Care Team Providers Name Role Phone Korin Gutierrez DO Primary Care Provider Reason for Referral Consultation - Closed Specialty Diagnoses / Procedures Referred By Contact Refer red To Contact Diagnoses Primary hyperparathyroidism (H) Korin Gutierrez M [facility] [address] [facility] [address] [facility] [address] [place] [phone] Referral ID Status Reason Start Date Expiration Date Visits Requ ested Visits Authorized [id number] Closed 03/09/2016 03/09/2017 1 1 Reason for Visit Reason Comments Establish Care Thyroid Disease Referral has had parathyroid surgery, Encounter Details Date Type Department Care Team Description 03/09/2016 Office Visit [facility] Korin Gutierrez Hip pain, right (Primary Dx); Clinic Adri Bang DO Primary hyperparathyroidism (H); [place] [address] [place] [address] Essential hypertension with goal blood pressure less than 140/90; [address] [place] [address] Morbid obesity due to excess calories (H ) [facility] [address] [facility] [phone] [place] [address] Social History Tobacco Use Types Packs/Day Years Used Date Smoking Tobacco: Never Smokeless Tobacco: Never Alcohol Use Standard Drinks/Week Comments No 0 (1 standard drink = 0.6 oz pure alcoho l) Sex Assigned at Date Recorded Not on file documented as of this encounter Last Filed Vital Signs Vital Sign Reading Time Taken Comments Blood Pressure 154/90 03/09/2016 2:21 PM CDT Pulse 90 03/09/2016 2:21 PM CDT Temperature 37.1 ??C (98.7 ??F) 03/09/2016 2:21 PM CDT Respiratory Rate 16 03/09/2016 2:21 PM CDT Oxygen Saturation 95% 03/09/2016 2:21 PM CDT Inhaled Oxygen Concentration - - Weight 122 kg (269 lb) 03/09/2016 2:21 PM CDT Height 157.5 cm (5' 2) 03/09/2016 2:21 PM CDT Body Mass Index 49.2 03/09/2016 2:21 PM CDT documented in this encounter Progress Notes Korin Ferrer, - 03/09/2016 2:12 PM CDT SUBJECTIVE: Lee Ann Herndon is a 75 year old female who presents to clinic today for the following health issues: Est Care-parathyroid concerns- Patient was diagnosed with primary hyperparathyroidism in 2013 after she presented to the ER with tetany 2/2 hypocalcemia. She underwent surgical removal of the right andleft superior parathyroid glands after adenomas were found there. She felt well since then until over the past month or so she noticed worsening hoarseness in her voice and recurrent leg pain. Her PTH was checked and was elevated again. She needs a referral to her surgeon for further treatment. HTN-Patient has had HTN for quite awhile now. Was started on amlodipine, but this caused leg swelling so she stopped taking it. She is wondering if there is something different she can try instead. Right hip pain- Patient has had issues with hip pain and low back pain in the past. She has been watching her grandson more lately and since she's been more active her right hip is bothering her more. She is using a cane to help her walk. She takes 200mg ibuprofen BID and ices the area which is helpful but doesn't last long. No history of injuries to her hip. 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 Problem list and histories reviewed & adjusted, as indicated. Additional history: as documented Problem list, Medication list, Allergies, and Medical/Social/Surgical histories reviewed in EPIC andupdated as appropriate. ROS: Constitutional, HEENT, cardiovascular, pulmonary, gi and gu systems are negative, except as otherwise noted. OBJECTIVE: BP 154/90 mmHg Pulse 90 Temp(Src) 98.7 ??F (37.1 ??C) (Oral) Resp 16 Ht 5' 2 (1.575 m) Wt269 lb (122.018 kg) BMI 49.19 kg/m2 SpO2 95% Body mass index is 49.19 kg/(m^2). GENERAL: healthy, alert and no distress NECK: no adenopathy, no asymmetry, masses, or scars and thyroid normal to palpation RESP: lungs clear to auscultation - no rales, rhonchi or wheezes CV: regular rate and rhythm, normal S1 S2, no S3 or S4, no murmur, click or rub, no peripheral edemaand peripheral pulses strong MS: +TTP in anterior hip area. +Pain with all ROM, especially with abduction and external rotation ASSESSMENT/PLAN: 1. Primary hyperparathyroidism (H) - PTH in the 180s, likely needs further surgery - Will refer back to the surgeon that performed her surgery in 2013 - Calcium in December is normal. Patient wishes to avoid a blood draw today. - GENERAL SURG ADULT REFERRAL 2. Hip pain, right - Likely OA from what XR looks like - Discussed getting an MRI to check for labral tears, etc, but she'd like to wait for now - Switch to naproxen instead of ibuprofen to get longer lasting pain relief - Advised seeing a sports med doc for a hip injection and she is skeptical of this but will think about it - XR Hip Bilateral 2 Views Each; Future - naproxen (NAPROSYN) 500 MG tablet; Take 1 tablet (500 mg) by mouth 2 times daily as needed for moderate pain Dispense: 60 tablet; Refill: 1 3. Essential hypertension with goal blood pressure less than 140/90 - Patient stopped amlodipine on her own 2/2 swelling in her legs - Will start lisinopril - I'd like to get her BP under control BEFORE any parathyroid procedures if we can - lisinopril-hydrochlorothiazide (PRINZIDE,ZESTORETIC) 20-25 MG per tablet; Take 1 tablet by mouth daily Dispense: 30 tablet; Refill: 3 4. Morbid obesity due to excess calories (H) - Patient requested a referral to the weight loss clinic - Advised that we deal with the above problems first and once everything is stable will initiate referral F/U in 1 month or sooner if needed Korin Ferrer DO [facility] documented in this encounter Nursing Notes Lizzette Venegas CMA - 03/09/2016 2:26 PM CDT Chief Complaint Patient presents with ??? Establish Care ??? Thyroid Disease ??? Referral has had parathyroid surgery, Initial BP 154/90 mmHg Pulse 90 Temp(Src) 98.7 ??F (37.1 ??C) (Oral) Resp 16 Ht 5' 2 (1.575m) Wt 269 lb (122.018 kg) BMI 49.19 kg/m2 SpO2 95%BMIHIS@ BP completed using cuff size regular long rt Arm Health Maintenance Updated with Patient:Yes Tobacco Verified: Yes Payor/Verify RX Benefits/Reconcile Disp Completed if allowed: Yes Family History Updated: Yes Immunizations Up to Date: yes Mychart Offered: Yes Lizzette Venegas MA documented in this encounter Miscellaneous Notes Addendum Note - Korin Ferrer DO - 03/09/2016 4:10 PM CDT Addended by: KORIN FERRER on: 03/09/2016 04:10 PM Modules accepted: Orders documented in this encounter Plan of Treatment Scheduled Referrals Name Type Priority Associated Diagnoses Order S chedule GENERAL SURG ADULT Referral Routine Primary hyperparathyro idism Ordered: REFERRAL (H) 03/09/2016 documented as of this encounter Results XR Hip Bilateral 2 [...] encounter Visit Diagnoses Diagnosis Hip pain, right - Primary Pain in joint, pelvic region and thigh Primary hyperparathyroidism (H) Primary hyperparathyroidism Essential hypertension with goal blood p ressure less than 140/90 Morbid obesity due to excess calories (H ) Hip pain, right Pain in joint, pelvic region and thigh documented in this encounter Additional Health Concerns Assessment Noted Time PHQ-9 Depression Total Score: 10 03/10/2016 7:14 AM CD T documented as of this encounter Care Teams Balloon Seller Relationship Specialty Start Date End Date Korin Gutierrez DO PCP - General Family Practice 03/09/16 06/18/16 documented as of this encounter
--- OUTSIDE RECORDS SUMMARY | 2022-07-19 22:58 | XMS_ITS | Encounter Summary ---
:1940 Author Organization [place] Address [facility] [place] [address] Care Team Providers Name Role Phone Julia White MD Primary Care Provider Encounter Details Date Type Department Care Team Description 09/04/2014 Orders Only [facility] Jordan Zhao Vitamin D deficiency Clinic Sg Patrick MD disease (Primary Dx) [place] [address] [facility], [address] [place] [address] [place], [place] [phone] (Wo rk) [address] [phone] Social History Tobacco Use Types Packs/Day Years Used Date Smoking Tobacco: Never Smokeless Tobacco: Never Alcohol Use Standard Drinks/Week Comments No 0 (1 standard drink = 0.6 oz pure alcoho l) Sex Assigned at Date Recorded Not on file documented as of this encounter Plan of Treatment Not on filedocumented as of this encounter Visit Diagnoses Diagnosis Vitamin D deficiency disease - Primary Unspecified vitamin D deficiency documented in this encounter Care Teams Package Liner Relationship Specialty Start Date End Date Julia White MD PCP - General Family Practice 12/18/13 11/01/14 [address] [place], [place] [id number] documented as of this encounter
--- OUTSIDE RECORDS SUMMARY | 2022-07-19 22:58 | XMS_ITS | Encounter Summary ---
:1940 Author Organization [place] Address [address] [place] [address] Care Team Providers Name Role Phone Julia White MD Primary Care Provider Reason for Visit Reason Comments No Show Encounter Details Date Type Department Care Team Description 04/15/2014 Office Visit [facility] Jordan Zhao NO SHOW ( Primary Dx) [place] [address] [place] [address] [facility], [address] [place] [address] [place], [place] [phone] (Wo rk) [address] [phone] Social History Tobacco Use Types Packs/Day Years Used Date Smoking Tobacco: Never Smokeless Tobacco: Never Alcohol Use Standard Drinks/Week Comments No 0 (1 standard drink = 0.6 oz pure alcoho l) Sex Assigned at Date Recorded Not on file documented as of this encounter Progress Notes Marisol [place] MA - 04/15/2014 7:37 AM CDT Patient no-showed today's appointment; provider notified for review of record. documented in this encounter Plan of Treatment Not on filedocumented as of this encounter Visit Diagnoses Diagnosis NO SHOW - Primary documented in this encounter Care Teams Oil Spot Washer Relationship Specialty Start Date End Date Julia White MD PCP - General Family Practice 12/18/13 11/01/14 [address] [place] [address] documented as of this encounter
--- OUTSIDE RECORDS SUMMARY | 2022-07-19 22:58 | XMS_ITS | Encounter Summary ---
:1940 Author Organization [place] Address [address] [place] [address]. [place] [address] Care Team Providers Name Role Phone Julia White MD Primary Care Provider Reason for Visit Reason Onset Date Comments Refill Request 06/18/2014 Norvasc 5mg Encounter Details Date Type Department Care Team Description 06/18/[address] [facility] Fely Denton Refill Request (Norvasc [facility] [place] MD Rand 5mg) [address] [facility], [address] [place] [address] [place] [address] [place], [place] [phone] (Wo rk) [address] [phone] Social History Tobacco Use Types Packs/Day Years Used Date Smoking Tobacco: Never Smokeless Tobacco: Never Alcohol Use Standard Drinks/Week Comments No 0 (1 standard drink = 0.6 oz pure alcoho l) Sex Assigned at Date Recorded Not on file documented as of this encounter Miscellaneous Notes Telephone Encounter - Siri Gonzales RN - 06/18/2014 9:13 AM CDT Pending Prescriptions: Disp Refills amLODIPine (NORVASC) 5 MG tablet 30 tab*1 Sig: Take 1 tablet (5 mg) by mouth daily NORVASC Last Office Visit R/T Diagnosis: 06/05/2014 BP Readings from Last 3 Encounters: 06/05/14 130/88 04/28/14 152/100 04/14/14 194/93 Creatinine Date Value Range Status 02/04/2014 0.94 0.52 - 1.04 mg/dL Final Medication approved per standing orders. Siri Gonzales RN documented in this encounter Plan of Treatment Not on filedocumented as of this encounter Visit Diagnoses Diagnosis HTN, goal below 140/90 Unspecified essential hypertension documented in this encounter Care Teams Livestock Dealer Relationship Specialty Start Date End Date Julia White MD PCP - General Family Practice 12/18/13 11/01/14 [address] [place] [address] documented as of this encounter
--- OUTSIDE RECORDS SUMMARY | 2022-07-19 22:58 | XMS_ITS | Encounter Summary ---
:1940 Author Organization [place] Address [facility], later [facility] [place] [address] Care Team Providers Name Role Phone Fely Denton MD Primary Care Provider [phone] Reason for Referral Medication Prior Authorization (Routine) - Closed Specialty Diagnoses / Procedures Referred By Contact Refer red To Contact Diagnoses Sciatica, [place] [address] [place] [address] Referral ID Status Reason Start Date Expiration Date Visits Requ ested Visits Authorized [id number] Closed Reason for Visit Reason Comments Leg Pain right upper leg pain Encounter Details Date Type Department Care Team Description 02/10/[address] [facility] Fely Denton Sciatic a, right (Primary Dx); Clinic Sg Gordillo MD Anemia, unspecified anemia type; [place] [address] [address] Hip pain, right; Road, [address] [place] [address] Major depressive disorder, recurrent epi sode, mild (H); [place], [place] [phone] (Wo rk) Special screening for malignant neoplasm s, colon [id number] [phone] Social History Tobacco Use Types Packs/Day Years Used Date Smoking Tobacco: Never Smokeless Tobacco: Never Alcohol Use Standard Drinks/Week Comments No 0 (1 standard drink = 0.6 oz pure alcoho l) Sex Assigned at Date Recorded Not on file documented as of this encounter Last Filed Vital Signs Vital Sign Reading Time Taken Comments Blood Pressure 168/92 02/10/2016 11:45 AM CDT Pulse 96 02/10/2016 11:45 AM CDT Temperature 36.8 ??C (98.3 ??F) 02/10/2016 11:45 AM CDT Respiratory Rate 20 02/10/2016 11:45 AM CDT Oxygen Saturation - - Inhaled Oxygen Concentration - - Weight 122 kg (269 lb) 02/10/2016 11:45 AM CDT Height - - Body Mass Index 49.2 01/29/2016 7:50 AM CDT documented in this encounter Progress Notes Fely Denton MD - 02/10/2016 11:44 AM CDT HPI SUBJECTIVE: Lee Ann Herndon is a 75 year old female who presents to clinic today for the following health issues: Joint Pain ?? Onset: 3 wks+, had 5 yo grandson for 1 week, may have lifted to much? No incident that she can recall. ?? Seen in ED for same reason, at the time the pain was down both legs, upper and lower, but now is focused on the right side, buttock pain , to the knee, worse with sitting, getting up out of chair, hurts in the hip /groin as well, but no problems crossing her legs, feels her hip is fine ?? Description: Location: right hip and right leg Character: Sharp ?? Intensity: moderate, 6/10 ?? Progression of Symptoms: worse ?? Accompanying Signs & Symptoms: Other symptoms: radiation of pain to knee, at times past the knee ?? History: Previous similar pain: no ?? Precipitating factors: Trauma or overuse: YES- see above ?? Alleviating factors: Improved by: ice ?? Therapies Tried and outcome: flexeril was way to strong, given 10mg and hated that Anemia found in ED, no hx of this, no vaginal or rectal bleeding, feels well, she is worried about her PTH levels, s/p parathyroidectomy in the past PROBLEMS TO ADD ON...MDD, on zoloft 25mg, this helps with her anxiety, her son is very ill, that is why she is taking care of grandson Problem list and histories reviewed & adjusted, as indicated. Additional history: as documented BP Readings from Last 3 Encounters: 02/10/16 168/92 01/29/16 126/71 03/13/15 125/80 Wt Readings from Last 3 Encounters: 02/10/16 269 lb (122.018 kg) 01/29/16 225 lb (102.059 kg) 04/28/14 252 lb 12.8 oz (114.669 kg) Labs reviewed in [facility] Problem list, Medication list, Allergies, and Medical/Social/Surgical histories reviewed in [facility] andupdated as appropriate. ROS: Constitutional, HEENT, cardiovascular, pulmonary, gi and gu systems are negative, except as otherwise noted. OBJECTIVE: BP 168/92 mmHg Pulse 96 Temp(Src) 98.3 ??F (36.8 ??C) (Oral) Resp 20 Wt 269 lb (122.018 kg) Body mass index is 49.19 kg/(m^2). GENERAL: healthy, alert and no distress EYES: [...] no gross musculoskeletal defects noted, no edema SKIN: no suspicious lesions or rashes NEURO: Normal strength and tone, mentation intact and speech normal BACK: no CVA tenderness, no paralumbar tenderness Comprehensive back pain exam: No tenderness, Pain limits the following motions: bending, Lower extremity strength functional and equal on both sides, Lower extremity reflexes within normal limits bilaterally, Lower extremity sensation normal and equal on both sides and Straight leg raise negative bilaterally PSYCH: mentation appears normal, affect normal/bright Diagnostic Test Results: none ASSESSMENT/PLAN: Hypertension; much worse Associated with the following complications: None Plan: Patient refused medication, feels her BP is fine at home, knows it is her stress, illness in her sonetc, she will continue to monitor it at home 1. Sciatica, right Patient declined offered PHYSICAL THERAPY and does not want higher dose of prednisone that needed - MR Lumbar Spine w/o Contrast; Future - predniSONE (DELTASONE) 20 MG tablet; Take 2 tablets (40 mg) by mouth daily for 5 days Dispense: 10tablet; Refill: 0 - Parathyroid Hormone Intact 2. Anemia, unspecified anemia type Work up started, c-scope due 05/16 - Folate - Iron and iron binding capacity - Vitamin B12 - Parathyroid Hormone Intact 3. Hip pain, right - MR Lumbar Spine w/o Contrast; Future - predniSONE (DELTASONE) 20 MG tablet; Take 2 tablets (40 mg) by mouth daily for 5 days Dispense: 10tablet; Refill: 0 - Parathyroid Hormone Intact 4. Major depressive disorder, recurrent episode, mild (HCC) Continue same - sertraline (ZOLOFT) 25 MG tablet; Take 1 tablet (25 mg) by mouth daily Take 25 mg by mouth daily. If having a bad day can take one extra tablet(PRN). Dispense: 90 tablet; Refill: 1 5. Special screening for malignant neoplasms, colon - Fecal colorectal cancer screen (FIT); Future Work on weight loss Regular exercise Follow up after MRI Fely Denton MD [facility] Physical Exam documented in this encounter Nursing Notes Natividad Duncan CMA - 02/10/2016 11:48 AM CDT Chief Complaint Patient presents with ??? Leg Pain right upper leg pain Initial BP 168/92 mmHg Pulse 96 Temp(Src) 98.3 ??F (36.8 ??C) (Oral) Resp 20 Wt 269 lb (122.018 kg) Estimated body mass index is 49.19 kg/(m^2) as calculated from the following: Height as of 01/28/16: 5' 2 (1.575 m). Weight as of this encounter: 269 lb (122.018 kg). BP completed using cuff size large right arm. Natividad Duncan CMA documented in this encounter Plan of Treatment Not on filedocumented as of this encounter Procedures Procedure Name Priority Date/Time Associated Diagnosis Comme nts PARATHYROID HORMONE Routine 02/10/2016 12:16 Sciatica, r ight Results for this INTACT PM CDT Anemia, unspecified procedur e are in anemia type the results Hip pain, right section. IRON AND IRON Routine 02/10/2016 12:16 Anemia, unspecified Res ults for this BINDING CAPACITY PM CDT anemia type procedure a re in the results section. FOLATE Routine 02/10/2016 12:16 Anemia, unspecified Resu lts for this PM CDT anemia type procedure are i n the results section. VITAMIN B12 Routine 02/10/2016 12:16 Anemia, unspecified Resu lts for this PM CDT anemia type procedure are i n the results section. [...] Minimal disc bulging without disc protrusion. Moderate master printer ior facet degenerative changes with subtle degenerative [...] Minimal disc bulging without disc protrusion. Moderate master printer ior facet degenerative changes with subtle degenerative [...] convex to the left. JOHN MARINO MD Fely Denton MD [facility] MRI ORDERABLES (ABNORMAL) Parathyroid Hormone Intact (02/10/2016 12:16 PM CDT) [facility] Method Time Signature Parathyroid 187 (H) 12 - 72 [facility] Intact pg/mL [facility] Specimen Anatomical Collection Method Collection Time Receive d Time (Source) Location / / Volume Laterality Blood specimen 02/10/2016 12:16 6 (specimen) PM CDT 12:17 PM CDT Fely Denton MD LAB - BLOOD ORDERABLES Performing Organization Address City/State/ZIP Code Phon e Number [facility] [address] [place] [address] [facility] Vitamin B12 (02/10/2016 12:16 PM CDT) athologist Signature Vitamin B12 294 193 - 986 [facility] pg/mL [facility] Comment: Interp: [id number] = Normal Specimen Anatomical Collection Method Collection Time Receive d Time (Source) Location / / Volume Laterality Blood specimen 02/10/2016 12:16 6 (specimen) PM CDT 12:17 PM CDT Fely Denton MD LAB - BLOOD ORDERABLES Performing Organization Address City/[facility]/ZIP Code Phon e Number [facility] [address] [place] [address] [facility] (ABNORMAL) Iron and iron binding capacity (02/10/2016 12:16 PM CDT) [facility] gist Method Time Signature Iron 32 (L) 35 - 180 [place] ug/dL [facility] Iron Binding 435 (H) 240 - 430 [place] Cap ug/dL [facility] Iron Saturation 7 (L) 15 - 46 % [facility] Specimen Anatomical Collection Method Collection Time Receive d Time (Source) Location / / Volume Laterality Blood specimen 02/10/2016 12:16 6 (specimen) PM CDT 12:17 PM CDT Fely Denton MD LAB - BLOOD ORDERABLES Performing Organization Address City/[facility]/ZIP Code Phon e Number [facility] [address] [place] [address] [facility] [address] [place], [place] [address] [facility] [address] [place] [address], [place] [phone] Folate (02/10/2016 12:16 PM CDT) athologist Signature Folate 12.4 >5.4 ng/mL [facility] Comment: Interp: >5.4 ng/mL = Normal Specimen Anatomical Collection Method Collection Time Receive d Time (Source) Location / / Volume Laterality Blood specimen 02/10/2016 12:16 6 (specimen) PM CDT 12:17 PM CDT Fely Denton MD LAB - BLOOD ORDERABLES Performing Organization Address City/State/ZIP Code Phon e Number [facility] [address] [place], [place] [id number] [place] [address] documented in this encounter Visit Diagnoses Diagnosis Sciatica, right - Primary Anemia, unspecified anemia type Hip pain, right Pain in joint, pelvic region and thigh Major depressive disorder, recurrent epi sode, mild (H) Major depressive disorder, recurrent epi sode, mild Special screening for malignant neoplasm s, colon Sciatica, right Hip pain, right Pain in joint, pelvic region and thigh documented in this encounter Care Teams Tool Crib Supervisor Relationship Specialty Start Date End Date Fely Denton MD PCP - General Family Practice 02/10/16 03/08/16 documented as of this encounter
--- OUTSIDE RECORDS SUMMARY | 2022-07-19 22:58 | XMS_ITS | Encounter Summary ---
:1940 Author Organization [place] Address [facility] [place] [address] Care Team Providers Name Role Phone Fely Denton MD Primary Care Provider [phone] Korin Gutierrez DO Primary Care Provider Reason for Visit Reason Onset Date Comments Nurse Advice Line 03/06/2016 referral Parathyroid and a refill Encounter Details Date Type Department Care Team Description 03/06/2016 Telephone [facility] Fely Denton Nurse Javier dvice Line Clinic Sg Gordillo MD (referral Parathyroid [address] [facility], [address] [place] [address] ANISASkylar and a refill) [address] [place] [address] [place], [place] [phone] (Wo rk) [address] [phone] Social History Tobacco Use Types Packs/Day Years Used Date Smoking Tobacco: Never Smokeless Tobacco: Never Alcohol Use Standard Drinks/Week Comments No 0 (1 standard drink = 0.6 oz pure alcoho l) Sex Assigned at Date Recorded Not on file documented as of this encounter Miscellaneous Notes Telephone Encounter - Siri Gonzales RN - 03/07/2016 2:53 PM CDT Patient has an appointment scheduled with Dr. Ferrer 03/09/2016 to establish care. LMOM for patient to call clinic back. 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 She needs to follow up with me to discuss this. The other option is sending her to neurology as nextstep. Prednisone should not be continued if it has not helped a lot already, this mostly works for pinchednerves, which she does not. Telephone Encounter - Fely Denton MD - 03/06/2016 12:49 PM CDT Please call patient back to see if she still needs referral for parathyroid, DR Murphy, and which clinic is he with? Her MRI Telephone Encounter - Sarah Troy - 03/06/2016 10:31 AM CDT Patient started to request to put in a referral to Dr. Murphy regarding her parathyroid and alsoa refill for predniSONE (DELTASONE) 20 MG tablet. During the phone call patient wanted to know if she had to follow up with Dr. Denton, I did explain to patient that Dr. Denton did what her to follow up after she had the MRI done. Patient wanted to make a future appointment but ended up getting up set because Dr. Denton didn't have any openings this week and said that she doesn't like to see other doctors then her primary. Patient didn't let me get in a word after that, she yelled and then hung up. She did state her leg wasn't getting any better. Sarah Troy Sleeve Tailor documented in this encounter Plan of Treatment Not on filedocumented as of this encounter Visit Diagnoses Not on filedocumented in this encounter Care Teams Overlock Hemmer Relationship Specialty Start Date End Date Fely Denton MD PCP - General Family Practice 02/10/16 03/08/16 Korin Gutierrez DO PCP - General Family Practice 03/09/16 06/18/16 documented as of this encounter
--- OUTSIDE RECORDS SUMMARY | 2022-07-19 22:58 | XMS_ITS | Encounter Summary ---
:1940 Author Organization [place] Address [address] [place] [address] Care Team Providers Name Role Phone Julia White MD Primary Care Provider Reason for Visit Reason Comments Eye Problem Right eye red/blood started yesterday Encounter Details Date Type Department Care Team Description 04/14/2014 Emergency [facility] Clive Mcmahon, Sub conjunctival haemorrhage (Primary Dx); [facility] Emergency HTN (hypertension) Dept [facility] [address] [place], [place] [address] [facility] [address] [place] [address] [place], [place] [address] (Wo rk) Social History Tobacco Use Types Packs/Day Years Used Date Smoking Tobacco: Never Smokeless Tobacco: Never Alcohol Use Standard Drinks/Week Comments No 0 (1 standard drink = 0.6 oz pure alcoho l) Sex Assigned at Date Recorded Not on file documented as of this encounter Last Filed Vital Signs Vital Sign Reading Time Taken Comments Blood Pressure 194/93 04/14/2014 8:57 PM CDT Pulse 86 04/14/2014 8:57 PM CDT Temperature 36.8 ??C (98.3 ??F) 04/14/2014 8:57 PM CDT Respiratory Rate 18 04/14/2014 8:57 PM CDT Oxygen Saturation 95% 04/14/2014 8:57 PM CDT Inhaled Oxygen Concentration - - Weight - - Height - - Body Mass Index - - documented in this encounter Discharge Instructions Discharge InstructionsMailander, Clive P, MD - 04/14/2014 10:21 PM CDT Home Back SP Subconjunctival Hemorrhage A subconjunctival hemorrhage is a result of a broken blood vessel in the white portion of the eye. It is usually painless and may be caused by coughing, sneezing or vomiting. An injury to the eye can cause this. It can also be a sign of hypertension (high blood pressure) or a bleeding disorder. Although it can look frightening, the presence of the blood is not serious. The blood will be reabsorbed without treatment within 2-3 weeks. Home Care: You may continue your usual activities. Get Prompt Medical Attention if any of the following occur: ?? Pain in the eye ?? Change in vision ?? The blood does not disappear within three weeks ?? Increasing redness or swelling of the eye ?? Severe headache or dizziness ?? Other signs of bruising or bleeding from other parts of your body ?? [id number] [place] [address]. All rights reserved. This information is not intended as a substitute for professional medical care. Always follow your healthcare professional's instructions. documented in this encounter Medications at Time of Discharge Medication Sig Dispensed Refills Start Date End Date calcium carbonate (OS-HAVEN Take 2 tablets 90 tablet 0 201304/28/2014 500 MG CROW. CA) 500 MG (1,000 mg) by tabletIndications: mouth 3 times Hypocalcemia daily calcium citrate Take 1 tablet (950 100 tablet 0 02/04/2014 0 01/22/2015 (CALCITRATE) 950 MG mg) by mouth 4 tabletIndications: times daily Hypocalcemia HYDROcodone-acetaminophen Take 1-2 tablets 28 tablet 0 12/3104/28/2014 (NORCO) 5-325 MG per by mouth every 4 tabletIndications: Primary hours as needed hyperparathyroidism (H) for moderate to severe pain IBUPROFEN PO Take 200 mg by 0 06/28/20 16 mouth as needed for moderate pain ORDER FOR DMEIndications: Equipment being 2 Units 0 05/2604/28/2014 Edema ordered: compression stockings 15-20 mmhg [id number] Zzzquil, take 1 0 capsule daily as needed Sertraline HCl (ZOLOFT PO) Take 25 mg by 0 04/28/2014 mouth daily Sertraline HCl (ZOLOFT PO) Take 25 mg by 0 01/22/2015 mouth daily as needed (if having a bad day can take one extra tablet) documented as of this encounter ED Notes Jonelle Oreilly RN - 04/14/2014 9:02 PM CDT Patient present to the ER with daughter for right bloody eye w/ clot per patient report that she noticed yesterday. Denies any eye pain or discomfort. ABC's are intact. Cliev Mcmahon MD - 04/14/2014 8:55 PM CDT History Chief Complaint: Eye Redness; right HPI Lee Ann Herndon is a 74 year old female who presents to the ED at 2103 for evaluation of eye redness. The patient reports she noticed scleral redness to the lateral aspect of her right eye yesterdayevening. She states she currently feels a foreign body sensation in this eye but denies any visual changes or eye pain. She denies that she has had any injury to the eye or felt anything get into her eye. She has not had any episodes of vomiting, excessive straining or harsh cough. Of note the patientis hypertensive, and when asked about this she confirms this is not unusual for her. The patient voices no other concerns or complaints at this time specifically headache, chest pain, abdominal pain or other new symptoms. Allergies: Cephalosporins. Clindamycin. Erythromycin. Lisinopril. Penicillins. Sympathomimetics. Tetracyclines. Medications: Vicodin. Ibuprofen. Zoloft. Calcitrate. Os-Haven. Past Medical History: Thyroid disease. Arthritis. Hypertension. Colon polyp. Hiatal hernia. Depressive disorder. Esophageal reflux. Mild major depression. Anxiety. GERD. Obesity. Past Surgical History: Parathyroidectomy. Bilateral knee replacement. Ankle repair. Hernia repair. Appendectomy. D&C. Family History: Positive for breast cancer, mother and sister. Social History: The patient denies use of tobacco, alcohol, or illicit drugs. Review of Systems Eyes: Positive for redness. Negative for pain and visual disturbance. All other systems reviewed and are negative. Physical Exam First Vitals: BP 194/93 Pulse 86 Temp(Src) 98.3 ??F (36.8 ??C) (Oral) Resp 18 SpO2 95% Visual Acuity: Right: 20/50 Left: 20/30 Physical Exam Vital signs and nursing notes reviewed. Constitutional: No distress HENT: Oropharynx is clear and moist Eyes: Right Eye: Small apparent capillary collection versus subconjunctival clot, measuring approximately 1-2mm at the 10 o'clock position. There was diffuse redness of sclera at the lateral aspect. Noevidence of hyphema. Normal pupillary response. No bleeding from the sclera noted. Ocular pressure of right eye measured twice at 10 and 13. Neck: normal range of motion Cardiovascular: Normal rate, regular rhythm, normal heart sounds. Pulmonary/Chest: Effort normal and breath sounds normal. No respiratory distress. Abdominal: Soft. Bowel sounds are normal. There is no tenderness. No rebound or guarding. Musculoskeletal: No joint swelling or edema. Neurological: Alert and oriented x3. Skin: Skin is warm and dry. No rash noted. No petechia Emergency Department Course After reviewing nursing notes and the patient's past medical history, I examined the patient here int emergency department. I discussed with her the plan of care and she he/she was in agreement withthis plan. I discussed the case with Dr. Gutiérrez from [facility] who was in agreement with the plan and stated he would see the patient in clinic tomorrow. Recheck. The patient is resting comfortably. She will be discharged to home. All questions were answered prior to discharge, and the patient was told to follow up with Ophthalmology per discharge instructions. Reasons for return as well as follow up were reviewed with the patient. She understands and agrees to this plan. Impression & Plan Medical Decision Making: Patient is a 74 year old female who presents with redness to the sclera of the eye, as well as a foreign body sensation. On examination, she had no evidence of obvious foreign body. She did have a subconjunctival hemorrhage. There is no evidence of glaucoma or significant visual abnormality. She had no evidence of bleeding from the sclera itself. There did appear to be a raised area at the 10 o'clockposition. This could have been a chronic process which is more noticeable due to the subconjunctivalhemorrhage; however, I did feel she warranted evaluation as an outpatient with Ophthalmology. Therefore, I contacted Dr. Gutiérrez from [facility]. He agrees with the plan of treatment and he does not recommend anything else at this time aside from follow up in their clinic tomorrow. The patient is instructed to call their office in the morning for recheck tomorrow. She is not on blood thinners, and this seems to be a nontraumatic and spontaneous process. If she has sudden severe eye pain or vision loss, she is to return immediately. She was also noted to be hypertensive which is an ongoing issue for several years and is not a new process; therefore, I did not treat this, and she will follow up for recheck with her PCP.The patient understands this plan and will be discharged to home. Diagnosis: 1. (372.72) Subconjunctival haemorrhage (primary encounter diagnosis) 2. (401.9) HTN (hypertension) Mari Obrien, am serving as a scribe on 04/14/2014 at 8:55 PM to personally document services performed by Dr. Mcmahon based on my observations and the provider's statements to me. Clive Mcmahon MD 04/15/14 1004 documented in this encounter Plan of Treatment Not on filedocumented as of this encounter Visit Diagnoses Diagnosis Subconjunctival haemorrhage - Primary Conjunctival hemorrhage HTN (hypertension) Unspecified essential hypertension documented in this encounter Active and Recently Administered Medications Care Teams Balance Recesser Relationship Specialty Start Date End Date Julia White MD PCP - General Family Practice 12/18/13 11/01/14 [id number] [place] [address] documented as of this encounter
--- OUTSIDE RECORDS SUMMARY | 2022-07-19 22:58 | XMS_ITS | Encounter Summary ---
:1940 Author Organization [place] Address [facility] [place] [address] Care Team Providers Name Role Phone Lio Stone MD Primary Care Provider [phone] Reason for Referral Diagnostic Procedure Outpatient - Closed Specialty Diagnoses / Procedures Referred By Contact Refer red To Contact Diagnoses History of colonic polyps Lio Stone [facility] [id number] [place] [address] [address] [place], [place] [address] [place] [address] Phone: Fax: Referral ID Status Reason Start Date Expiration Date Visits Requ ested Visits Authorized [id number] Closed 06/27/2016 06/27/2017 1 1 Reason for Visit Reason Comments Forms Encounter Details Date Type Department Care Team Description 06/27/2016 Office Visit [facility] Lio Stone y of colonic polyps (Primary Dx); Clinic Adri Glass MD Essential hypertension, hypertension wit h unspecified goal; [address] [facility] [address] Asymptomatic postmenopausal status; [place], [place] Visit f or screening mammogram; [id number] Hip pain, right; [phone] Vitamin D defic iency disease (Work) Social History Tobacco Use Types Packs/Day Years Used Date Smoking Tobacco: Never Smokeless Tobacco: Never Alcohol Use Standard Drinks/Week Comments No 0 (1 standard drink = 0.6 oz pure alcoho l) Sex Assigned at Date Recorded Not on file documented as of this encounter Last Filed Vital Signs Vital Sign Reading Time Taken Comments Blood Pressure 138/82 06/27/2016 9:50 AM CDT Pulse 95 06/27/2016 9:50 AM CDT Temperature 36.8 ??C (98.3 ??F) 06/27/2016 9:50 AM CDT Respiratory Rate 14 06/27/2016 9:50 AM CDT Oxygen Saturation 96% 06/27/2016 9:50 AM CDT Inhaled Oxygen Concentration - - Weight 117 kg (258 lb) 06/27/2016 9:50 AM CDT Height 160 cm (5' 3) 06/27/2016 9:50 AM CDT Body Mass Index 45.7 06/27/2016 9:50 AM CDT documented in this encounter Progress Notes Lio Stone MD - 06/27/2016 9:50 AM CDT SUBJECTIVE: Lee Ann Herndon is a 76 year old female who presents to clinic today for the following health issues She has disabling depression, hypocalcemia and osteoarthritis and has requested housing varience in her apartment to have a dog Discussed her health maintenance needs, disabling hip pain. She has her daughter with her who is local but not on site where she lives Problem list and histories reviewed & adjusted, as indicated. Additional history: PAST MEDICAL HISTORY: Past Medical History Diagnosis Date ??? Esophageal reflux ??? Depression ??? Hiatal hernia 2010 ??? 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 Hypertension ??? Arthritis of both knees ??? Parathyroid abnormality (H) PAST SURGICAL HISTORY: Past Surgical History Procedure Laterality Date ??? Dilation and curettage after spAb ??? Hernia repair Right ??? Joint replacement Bilateral 2006 - [facility] ??? Colonoscopy 05/30/13 polyps found - repeat in 3 years ??? Ankle surgery Left 2008 - [facility] ??? Appendectomy ??? Parathyroidectomy 01/26/2014 Procedure: PARATHYROIDECTOMY; Surgeon: Vonnie Murphy MD; Location: [facility] FAMILY HISTORY: Family History Problem Relation Age of Onset ??? Breast Cancer Mother ??? Breast Cancer Sister ??? Other Cancer Father Pancreatic ??? Gallbladder Disease Sister SOCIAL HISTORY: Social History Substance Use Topics ??? Smoking status: Never Smoker ??? Smokeless tobacco: Never Used ??? Alcohol Use: No On exam the vital signs are stable Weight is Body mass index is 45.71 kg/(m^2). Eyes show nataliya No neck masses or thyromegaly.Ear nose and throat shows normal. Affect is flaat No bruits, murmers, rubs or extrasounds. No cardiomegaly or chest wall tenderness. Lungs clear, no abdominal masses or organomegaly. No CVA tenderness. Skin eval no rashes, splints back and extremities.. Good peripheral pulses. No adenopathy. Normal gait and stance. Neck is supple. Back exam shows limited lateral flexion (Z86.010) History of colonic polyps (primary encounter diagnosis) Comment: Plan: GASTROENTEROLOGY ADULT REFERRAL +/- PROCEDURE Get colon check (I10) Essential hypertension, hypertension with unspecified goal Comment: Plan: Basic metabolic panel (Ca, Cl, CO2, Creat, Gluc, K, Na, BUN) At goal (Z78.0) Asymptomatic postmenopausal status Comment: Plan: DEXA HIP/PELVIS/SPINE - Future depression (Z12.31) Visit for screening mammogram Comment: Plan: MA SCREENING DIGITAL BILAT - Future (s+30) And dexa (M25.551) Hip pain, right Comment: Plan: DEXA HIP/PELVIS/SPINE - Future, CBC with platelets (E55.9) Vitamin D deficiency disease Comment: Plan: dexa documented in this encounter Plan of Treatment Scheduled Referrals Name Type Priority Associated Diagnoses [facility] Referral Routine History of colonic Ordered: 06/27/2016 REFERRAL +/- PROCEDURE polyps documented as of this encounter Procedures Procedure Name Priority Date/Time Associated Diagnosis Comme nts BASIC METABOLIC Routine 06/27/2016 10:12 Essential Results for this PANEL AM CDT hypertension, procedure are in hypertension with the result s unspecified goal section. CBC WITH PLATELETS Routine 06/27/2016 10:12 Hip pain, right Re sults for this AM CDT procedure are i n the results section. documented in this encounter Results (ABNORMAL) CBC with platelets (06/27/2016 10:12 AM CDT) P athologist Signature WBC 6.2 4.0 - 11.0 [place] 10e9/L [facility] RBC Count 4.23 3.8 - 5.2 [place] 10e12/L [facility] Hemoglobin 11.5 (L) 11.7 - 15.7 [place] g/dL [facility] Hematocrit 37.3 35.0 - 47.0 [place] % [facility] MCV 88 78 - 100 fl [facility] MCH 27.2 26.5 - 33.0 [place] pg [facility] MCHC 30.8 (L) 31.5 - 36.5 [place] g/dL [facility] Comment: Reviewed: OK with previous RDW 16.5 (H) 10.0 - 15.0 % [facility] Platelet Count 165 150 - 450 10e9/L [facility] Specimen Anatomical Collection Method Collection Time Receive d Time (Source) Location / / Volume Laterality Blood specimen 06/27/2016 10:12 6 (specimen) AM CDT 10:13 AM CDT Lio Stone MD LAB - BLOOD ORDERABLES Performing Organization Address City/State/ZIP Code Phon e Number [facility] [address] [place], [place] [id number] (ABNORMAL) Basic metabolic panel (Ca, Cl, CO2, Creat, Gluc, K, Na, BUN) (06/27/2016 10:12 AM CDT) Analysis Performed At Patho logist Time Signature Sodium 141 133 - 144 [place] mmol/L [facility] Potassium 4.4 3.4 - 5.3 [place] mmol/L [facility] Chloride 109 94 - 109 [place] mmol/L [facility] Carbon Dioxide 24 20 - 32 [place] mmol/L [facility] Anion Gap 8 3 - 14 [place] mmol/L [facility] Glucose 88 70 - 99 [place] mg/dL [facility] Urea Nitrogen 20 7 - 30 [place] mg/dL [facility] Creatinine 0.98 0.52 - [place] 1.04 mg/dL [facility] GFR Estimate 55 (L) >60 [place] mL/min/1.[address] [facility] Comment: Non GFR Calc GFR Estimate If Black 67 >60 mL/min/1.7m2 F [facility] Comment: GFR Calc Calcium 9.0 8.5 - 10.1 mg/dL [place] CLIN ICS [facility] Specimen Anatomical Collection Method Collection Time Receive d Time (Source) Location / / Volume Laterality Blood specimen 06/27/2016 10:12 6 (specimen) AM CDT 10:13 AM CDT Lio Stone MD LAB - BLOOD ORDERABLES Performing Organization Address City/State/ZIP Code Phon e Number [facility] [address] [place] [address] documented in this encounter Visit Diagnoses Diagnosis History of colonic polyps - Primary Personal history of colonic polyps Essential hypertension, hypertension wit h unspecified goal Asymptomatic postmenopausal status Visit for screening mammogram Other screening mammogram Hip pain, right Pain in joint, pelvic region and thigh Vitamin D deficiency disease Unspecified vitamin D deficiency documented in this encounter Additional Health Concerns Assessment Noted Time PHQ-9 Depression Total Score: 18 06/28/2016 7:24 AM CD T documented as of this encounter Care Teams Pipelines Superintendent Relationship Specialty Start Date End Date Lio Stone MD PCP - General Family Practice 06/19/16 [address] [place] [address] documented as of this encounter
--- OUTSIDE RECORDS SUMMARY | 2022-07-19 22:59 | XMS_ITS | Encounter Summary ---
:1940 Author Organization [place] Address [facility]0 [facility] [place] [address] Care Team Providers Name Role Phone Julia White MD Primary Care Provider Reason for Visit Reason Onset Date Comments Orders 02/09/2014 Encounter Details Date Type Department Care Team Description 02/09/2014 Telephone [facility] Julia White MD Orders [place] [id number] [place] [id number] [place] [address] [place] [address] [phone] Social History Tobacco Use Types Packs/Day Years Used Date Smoking Tobacco: Never Smokeless Tobacco: Never Alcohol Use Standard Drinks/Week Comments No 0 (1 standard drink = 0.6 oz pure alcoho l) Sex Assigned at Date Recorded Not on file documented as of this encounter Miscellaneous Notes Telephone Encounter - Haley Busch CMA - 02/09/2014 1:46 PM CDT Haley Busch, Photo Studio Assistant Spoke with patient. Gave her the below message. Also sent a letter as a reminder for her along with the Vitamin d result. Telephone Encounter - Julia Figueroa MD - 02/09/2014 5:26 AM CDT Patient has very low vitamin D level in hospital. I will send in a megadose of vitamin D to take once per week for 8 weeks. When this is finished, I recommend vitamin D3 2000 IU per day. This can be obtained at any pharmacy without a prescription. We can recheck a vitamin D level in 6-12 months Can you let her know I sent this rx [facility] on [facility] documented in this encounter Plan of Treatment Not on filedocumented as of this encounter Visit Diagnoses Diagnosis Vitamin D deficiency disease - Primary Unspecified vitamin D deficiency documented in this encounter Care Teams Mid Level Java Developer Relationship Specialty Start Date End Date Julia White MD PCP - General Family Practice 12/18/13 11/01/14 [address] [place] [address] documented as of this encounter
--- OUTSIDE RECORDS SUMMARY | 2022-07-19 22:59 | XMS_ITS | Encounter Summary ---
:1940 Author Organization [place] Address [address] [facility] [place] [address] Care Team Providers Name Role Phone Julia White MD Primary Care Provider Reason for Visit (Routine) - Closed Specialty Diagnoses / Procedures Referred By Contact Refer red To Contact Radiology / Radiology. Diagnoses EPIC Rh Ultrasound Procedures US HEAD NECK SOFT TISSUE [address] [place] [address] Phone: Fax: Referral ID Status Reason Start Date Expiration Date Visits Requ ested Visits Authorized [id number] Closed 12/18/2013 12/18/2014 1 1 Encounter Details Date Type Department Care Team Description 12/22/2013 Hospital Encounter [facility] Julia White Hyperparathyroidism, unspecified (H); Atif Roberson MD Hypercalcemia [address] [address] [facility] [address] [facility] [phone] [place] [address] Social History Tobacco Use Types Packs/Day Years Used Date Smoking Tobacco: Never Smokeless Tobacco: Never Alcohol Use Standard Drinks/Week Comments No 0 (1 standard drink = 0.6 oz pure alcoho l) Sex Assigned at Date Recorded Not on file documented as of this encounter Medications at Time of Discharge Medication Sig Dispensed Refills Start Date End Date lisinopril Take 1 tablet (5 mg) 30 tablet 3 12/15/2013/2 10/2013 (PRINIVIL,ZESTRIL) 5 MG by mouth daily tabletIndications: Hypertension ORDER FOR Equipment being 2 Units 0 05/26/2013 4 DMEIndications: Edema ordered: compression stockings 15-20 mmhg [id number] Zzzquil, take 1 0 capsule daily as needed sertraline (ZOLOFT) 50 Take 1 tablet (50 mg) 180 tablet 3 02/03/2014 MG tabletIndications: by mouth 2 times Mild major depression daily (H), Anxiety documented as of this encounter Plan of Treatment Not on filedocumented as of this encounter Procedures Procedure Name Priority Date/Time Associated Diagnosis Comme nts US HEAD NECK SOFT Routine 12/22/2013 10:30 AM Hyperparathyroid ism, Results for this TISSUE CDT unspecified (H) procedure are in Hypercalcemia the results section. documented in this encounter Results US Head Neck Soft Tissue (12/22/2013 10:30 AM CDT) Anatomical Region Laterality Modality Head Ultrasound Specimen (Source) Anatomical Location Collection Method / Collectio n Time Received Time / Laterality Volume Impressions 12/22/2013 3:50 PM CDT IMPRESSION: Negative soft tissue neck study. ALEXUS GARCÍA MD Narrative 12/22/2013 3:50 PM CDT ULTRASOUND HEAD AND NECK SOFT TISSUE ??12/22/2013 10:30 AM HISTORY: Hyperparathyroidism, unspecifie d. COMPARISON: None. FINDINGS: The thyroid is somewhat small but otherwise unremarkable. Right lobe measures 2.8 x 1.4 x 0.9 cm, left lobe measures 3.4 x 1.4 x 1.3 cm. The isthmus is normal in thickne ss. No discrete nodules. No parathyroids identified. There is no yosef dence for cervical adenopathy bilaterally by size or morphology. ? Procedure Note Alexus García MD - 12/22/2013Fo rmatting of this note might be different from the original. ULTRASOUND HEAD AND NECK SOFT TISSUE 11/30 10:30 AM HISTORY: Hyperparathyroidism, unspecifie d. COMPARISON: None. FINDINGS: The thyroid is somewhat small but otherwise unremarkable. Right lobe measures 2.8 x 1.4 x 0.9 cm, left lobe measures 3.4 x 1.4 x 1.3 cm. The isthmus is normal in thickne ss. No discrete nodules. No parathyroids identified. There is no yosef dence for cervical adenopathy bilaterally by size or morphology. IMPRESSION IMPRESSION: Negative soft tissue neck st udy. ALEXUS GARCÍA MD Julia White MD IMG US ORDERABLES documented in this encounter Visit Diagnoses Diagnosis Hyperparathyroidism, unspecified (H) Hyperparathyroidism, unspecified Hypercalcemia documented in this encounter Care Teams Railroad Track Mechanic Relationship Specialty Start Date End Date Julia White MD PCP - General Family Practice 12/18/13 2 [address] [place] [address] documented as of this encounter
--- OUTSIDE RECORDS SUMMARY | 2022-07-19 22:59 | XMS_ITS | Encounter Summary ---
:1940 Author Organization [place] Address [address] [facility] [place] [address] Care Team Providers Name Role Phone Julia White MD Primary Care Provider Reason for Visit (Routine) - Closed Specialty Diagnoses / Procedures Referred By Contact Refer red To Contact Radiology / Radiology. Diagnoses Epic Order, sb Reta, must be done with Spec CT per ordering physician, code per [place], no thyroid meds or contrast studies Nuclear M edicine Procedures NM INJECT [address] [place] [address] Phone: Referral ID Status Reason Start Date Expiration Date Visits Requ ested Visits Authorized [id number] Closed 01/01/2014 12/31/2014 1 1 Encounter Details Date Type Department Care Team Description 01/06/2014 [facility], Primary Encounter [facility] MD Vonnie hyperparathyroidism (H) [address] [place] [address] [phone] Social History Tobacco Use Types Packs/Day Years [...] 1 tablet (5 mg) 30 tablet 3 12/15/2013 04/2 10/2013 (PRINIVIL,ZESTRIL) 5 MG by mouth daily tabletIndications: Hypertension ORDER FOR Equipment being 2 Units 0 05/26/2013 4 DMEIndications: Edema ordered: compression stockings 15-20 mmhg [id number] Zzzquil, take 1 0 capsule daily as needed sertraline (ZOLOFT) 50 Take 1 tablet (50 mg) 180 tablet 3 02/03/2014 MG tabletIndications: by mouth 2 times Mild major depression daily (H), Anxiety documented as of this encounter Plan of Treatment Not on filedocumented as of this encounter Procedures Procedure Name Priority Date/Time Associated Diagnosis Comme nts NM PARATHYROID Routine 01/06/2014 11:09 Primary Results f or this PLANAR W/SPECT & AM CDT hyperparathyroidism (H) procedure are in CT DUAL the results section. documented in this encounter Results NM Parathy Plnr Img w Bill Spect & CT (01/06/2014 11:09 AM CDT) Anatomical Region Laterality Modality Neck Nuclear Medicine Specimen (Source) Anatomical Location Collection Method / Collectio n Time Received Time / Laterality Volume Impressions 01/06/2014 11:23 AM CDT IMPRESSION: Negative parathyroid scan. KAMERON MAZARIEGOS MD Narrative 01/06/2014 11:23 AM CDT NM PARATHYROID PLANAR W/SPECT & CT DUAL ?? 01/06/2014 11:09 AM HISTORY: Primary hyperparathyroidism. COMPARISON: None. TECHNIQUE: The patient received 892 uCi of I-123 orally and 28.6 mCi of Tc-99 sestamibi. Dynamic images were obtained of the thyroid gland following sestamibi administration. CT i maging was performed in several planes. FINDINGS: Normal activity identified in the thyroid gland. No focal area of abnormal uptake identified in th e neck or upper chest. No definite parathyroid adenoma identified. Normal activity identified in the salivary glands. Remainder of the sc an is negative. Procedure Note Kameron Mazariegos MD - 01/06/2014F ormatting of this note might be different from the original. NM PARATHYROID PLANAR W/SPECT & CT DUAL 01/06/2014 11:09 AM HISTORY: Primary hyperparathyroidism. COMPARISON: None. TECHNIQUE: The patient received 892 uCi of I-123 orally and 28.6 mCi of Tc-99 sestamibi. Dynamic images were obtained of the thyroid gland following sestamibi administration. CT i maging was performed in several planes. FINDINGS: Normal activity identified in the thyroid gland. No focal area of abnormal uptake identified in th e neck or upper chest. No definite parathyroid adenoma identified. Normal activity identified in the salivary glands. Remainder of the sc an is negative. IMPRESSION IMPRESSION: Negative parathyroid scan. KAMERON MAZARIEGOS MD Vonnie Murphy MD IMG NM ORDERABLES documented in this encounter Visit Diagnoses Diagnosis Primary hyperparathyroidism (H) Primary hyperparathyroidism Primary hyperparathyroidism (H) Primary hyperparathyroidism documented in this encounter Administered Medications Inactive Administered Medications - up to 3 most recent administrations Medication Order MAR Action Action Date Dose Rate Site sodium iodide I-123 radioisotope Given 01/06/2014 8:05 AM CDT 89 2 uCi capsule 800 uCi 800 uCi, Oral, ONCE, On Tu01/06/14 at 0830, For 1 dose, Supplied by, and administered by Nuclear Medicine. *HW* documented in this encounter Care Teams Youth Services Librarian Relationship Specialty Start Date End Date Julia White MD PCP - General Family Practice 12/18/13 11/01/14 [address] [place] [address] documented as of this encounter
--- OUTSIDE RECORDS SUMMARY | 2022-07-19 22:59 | XMS_ITS | Encounter Summary ---
:1940 Author Organization [facility] Address [address] [facility] [place] [address] Care Team Providers Name Role Phone Julia White MD Primary Care Provider Reason for Visit Reason Comments Clinic Care Coordination - Initial ED Follow Up 04/07/14 - Calcium pyrophosphate deposition disease of wrist Care Team Encounter Details Date Type Department Care Team Description 04/08/2014 Care Coordination [facility] ZENOBIA Roberson MD Coordination - Initial MANAGEMENT DEPT [id number] (ED Follow Up 04/07/14- [address] Calcium pyrophosphate [address] [place], [place] [address] [place] [address] wrist); Care Team [phone] Social History Tobacco Use Types Packs/Day Years Used Date Smoking Tobacco: Never Smokeless Tobacco: Never Alcohol Use Standard Drinks/Week Comments No 0 (1 standard drink = 0.6 oz pure alcoho l) Sex Assigned at Date Recorded Not on file documented as of this encounter Progress Notes Kacie Ramos, COLOR CONTROL SUPERVISOR - 04/14/2014 2:16 PM CDT Care Coordination Initial Assessment Outreach to patient; second attempt. Introduced self as Freight Unloader and explained Care Coordination role. Identity verified. PCP: Julia Figueroa Referral Source: ED/IP List Utilization: ED visits in last year: 2: 02/03/14 Hypocalcemia, 01/26/14 Hyperparathyroid Hospital Admits in last year: 1: 02/03/14 Health Maintenance Reviewed: Yes. Overdue for Mammo and Dexa Scan. Current Medical Health Concerns: Hypertension Patient Active Problem List Diagnosis ??? EDEMA ??? JOINT PAIN-LOWER LEG ??? GENERAL OSTEOARTHROSIS ??? Anxiety ??? Mild Major Depression ??? CARDIOVASCULAR SCREENING; LDL GOAL LESS THAN 160 ??? GERD (GASTROESOPHAGEAL REFLUX DISEASE) ??? Obesity ??? [facility] ??? Hypertension ??? HTN, goal below 140/90 ??? Primary hyperparathyroidism ??? Hypocalcemia ??? 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 Vitamin D deficiency disease Patient/Caregiver Understanding: Good. 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 She states she is feeling better since her visit last week, stating the swelling is reduced,she is no longer in pain, and the area is no longer red. Medication Management: Method of Taking: Out of bottles at given times Medications Reviewed: Yes Functional Status: Independent with all ADL/IADL's Transportation: Drives Cognitive Function : A & O DME: Cane, if needed. Ricob elier Current Behavioral Health Concerns: Anxiety: Noted in EMR Depression: Patient takes Sertraline to manage Patient/Caregiver Understanding: She reports that she is very sensitive to medications and had harshreactions to Prednisone but would not elaborate on the symptoms. She stated she has finished the entire course, and this was the first time she has even used this drug. She states her eye is red and she attributes this to Prednisone. She stated she will see a doctor if symptoms have not improved in the next day or two. Patient reports being very unhappy with [facility] and stated she will not go back to another clinic or hospital. She reports she was sent up to the second floor during the last hospitalization to receive an IV. She stated she told the nurses that the IV needed to be removed but the nurses would not remove it as they informed her she might need another dose of IV medication. She stated that she told them they could start another line later if needed. She reports the IV site was inflamed and painful the next day, causing her to need to see a physician. She reports she was very satisfied with her last PCP who is no longer at the clinic, and does not like that she was dumped into a new provider who does not have many days at the clinic. She reports she was dissatisfied with the doctor because she called a prescription into patient's pharmacy based upon test results, without discussing the course of treatment with the patient. Aircraft Engineer asked patient if she has seen any other providers in the clinic that she may want to switch to, and she reports there may be one doctor in anotherclinic that she would try to see because it is her daughter's doctor. Aircraft Engineer validated patient's feelings and encouraged her to shop around for a physician that she is comfortable working with. Aircraft Engineer offered to make an appointment for patient at the [facility], but she declined. Aircraft Engineer offered the patient relations' phone number for [facility], but patient declined. Patient has a cane that she uses when her ankle bothers her. She has grab bars in the bathroom. Drives. No concerns or desire for services. Psychosocial: Living Situation: Lives with in 55+ senior apartment community. Gaps: Health Maintenance: Mammo and Dexa Scan overdue. Patient unhappy with [facility] services and may not return Behavioral Health: Depression Resources Given: Offered assistance making medical appointment with new doctor and offered hospital patient relations' phone number, both declined. Aircraft Engineer stated patient was welcome to call web content writer backif she has any questions or would like resources in the future. Plan: No further action required at this time. Patient not interested in another follow up call. 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 Prescribed Prednisone; F/U appointment needed in 3 days. Outreach attempted x 1. Left message on voicemail with call back information and requested return call. Plan: Will attempt to contact in 1 business days and await response to message. JAZMIN Winters Field Identification Specialist [phone] April 08, 2014 documented in this encounter Plan of Treatment Not on filedocumented as of this encounter Visit Diagnoses Not on filedocumented in this encounter Care Teams Wrapper Sheeter Relationship Specialty Start Date End Date Julia White MD PCP - General Family Practice 12/18/13 11/01/14 [id number] [place] [address] documented as of this encounter
--- OUTSIDE RECORDS SUMMARY | 2022-07-19 22:59 | XMS_ITS | Encounter Summary ---
:1940 Author Organization [facility] Address [address] [place] [id number] Care Team Providers Name Role Phone Julia White MD Primary Care Provider Reason for Visit Auth/Cert - Closed Specialty Diagnoses / Procedures Referred By Contact Refer red To Contact Surgery Diagnoses Hyerparathyroidism Rh Periop Services Procedures PARATHYROIDECTOMY [address] [place], [place] [phone] Phone: Fax: Referral ID Status Reason Start Date Expiration Date Visits Requ ested Visits Authorized [id number] Closed 1 1 Encounter Details Date Type Department Care Team Description 01/26/2014 [facility] Primary - Encounter [facility] MD Vonnie hyperparathyroidism (H) 01/27/2014 [address] [place], [place] [id number] Social History Tobacco Use Types Packs/Day Years Used Date Smoking Tobacco: Never Smokeless Tobacco: Never Alcohol Use Standard Drinks/Week Comments No 0 (1 standard drink = 0.6 oz pure alcoho l) Sex Assigned at Date Recorded Not on file documented as of this encounter Last Filed Vital Signs Vital Sign Reading Time Taken Comments Blood Pressure 130/74 01/27/2014 10:53 AM CDT Pulse 70 01/27/2014 6:21 AM CDT Temperature 36.2 ??C (97.2 ??F) 01/27/2014 6:21 AM CDT Respiratory Rate 18 01/27/2014 10:53 AM CDT Oxygen Saturation 92% 01/27/2014 10:53 AM CDT Inhaled Oxygen Concentration - - Weight 118 kg (260 lb 2.3 oz) 01/26/2014 5:38 PM CDT Height 160 cm (5' 2.99) 01/26/2014 5:38 PM CDT Body Mass Index 46.09 01/26/2014 5:38 PM CDT documented in this encounter Discharge Instructions Discharge InstructionsVonnie Soler MD - 01/27/2014 10:18 AM CDT HOME CARE FOLLOWING PARATHYROID SURGERY Annia Andino E. Gavin Special instructions for Lee Ann Herndon: --Discharge medications: Calcium supplement and [place] Calcium Taper Schedule: Take two tablets every 8 hours for three days, then decrease to two tablets every 12 hours for one week, then decrease to one tablet every 12 hours for one week, then decrease to one tablet daily until gone. --Follow up appointment with Dr. Soler in 1-3 weeks, follow up with PCP in 4-8 weeks. RESULTS: Call the office regarding your final pathology report if you have not received your results after 2 full business days. INCISIONAL CARE: ??? You may expect a small amount of drainage from your previous drain site. Cover with bandage as needed. ??? After removing the dressing, you may shower. Do not submerse the incision for 1 week. ??? Sutures will absorb and do not need to be removed. ??? Leave the steri-strip (white paper tape) in place until it falls off, or remove at 2 weeks aftersurgery. ??? A lump/ridge under the incision is normal and will gradually resolve. ACTIVITY: Light Activity -- you may immediately be up and about as tolerated. Driving -- you may drive when comfortable and off narcotic pain medications. Light Work -- resume when comfortable off pain medications. (If you can drive, you probably can work.) Strenuous Work/Activity -- limit lifting to 20 pounds for 1 week. Progressively increase with time. Active Sports (running, biking, etc.) -- resume when comfortable. DIET: No restrictions. Increased fluid intake is recommended. While taking pain medications, increase dietary fiber or add a fiber supplementation like Metamucil or Citrucel to help prevent constipation - a possible side effect of pain medications. DISCOMFORT: Use pain medications as prescribed by your surgeon. Take the pain medication with some food, when possible, to minimize side effects. Intermittent use of ice packs may help during the first 48 hours. Expect gradual improvement. CALCIUM SUPPLEMENTATION: Most patients are prescribed to take a calcium supplement after surgery. Please take as prescribed. Watch for symptoms of numbness or tingling around the mouth or in the fingers or toes. This may be a sign of a low calcium level. If this happens, take an extra dose of your calcium supplement. If the symptoms persist, please contact the office. You may need to have your blood calcium level checked by doing a simple blood test. We may also need to make further adjustments in your dose of calcium supplementation. At times, an office visit is required. RETURN APPOINTMENT: Schedule a follow-up visit 1-3 weeks post-op (you may do this any time after surgery is scheduled). Office CONTACT US IF THE FOLLOWING DEVELOPS: 1. A fever that is above 101?? 2. If there is a large amount of drainage, bleeding, or swelling. 3. Severe pain that is not relieved by your prescription. 4. Drainage that is thick, cloudy, yellow, green or white. 5. Any other questions not answered by ???Frequently Asked Questions?? sheet. FREQUENTLY ASKED QUESTIONS: Q: How should my incision look? A: Normally your incision will appear slightly swollen with light redness directly along the incision itself as it heals. It may feel like a bump or ridge as the healing/scarring happens, and over time(3-4 months) this bump or ridge feeling should slowly go away. In general, clear or pink watery drainage can be normal at first as your incision heals, but should decrease over time. Q: How do I know if my incision is infected? A: Look at your incision for signs of infection, like redness around the incision spreading to surrounding skin, or drainage of cloudy or foul-smelling drainage. If you feel warm, check your temperature to see if you are running a fever. If any of these things occur, please notify the nurse at our office. We may need you to come into the office for an incision check. Q: How do I take care of my incision? A: If you have a dressing in place - Starting the day after surgery, replace the dressing 1-2 times a day until there is no further drainage from the incision. At that time, a dressing is no longer needed. Try to minimize tape on the skin if irritation is occurring at the tape sites. If you have significant irritation from tape on the skin, please call the office to discuss other method of dressing your incision. Small pieces of tape called ???steri-strips?? may be present directly overlying your incision; these may be removed 10 days after surgery unless otherwise specified by your surgeon. If these tapes start to loosen at the ends, you may trim them back until they fall off or are removed. A: If you had ???Dermabond?? tissue glue used as a dressing (this causes your incision to look shiny with a clear covering over it) - This type of dressing wears off with time and does not require more dressings over the top unless it is draining around the glue as it wears off. Do not apply ointments or lotions over the incisions until the glue has completely worn off. Q: There is a piece of tape or a sticky ???lead?? still on my skin. Can I remove this? A: Sometimes the sticky ???leads?? used for monitoring during surgery or for evaluation in the emergency department are not all removed while you are in the hospital. These sometimes have a tab or metal dot on them. You can easily remove these on your own, like taking off a band-aid. If there is a gel substance under the ???lead?? , simply wipe/clean it off with a washcloth or paper towel. Q: What can I do to minimize constipation (very hard stools, or lack of stools)? A: Stay well hydrated. Increase your dietary fiber intake or take a fiber supplement -with plenty ofwater. Walk around frequently. You may consider an fito-zxl-[id number] stool-softener. Your Pharmacist can assist you with choosing one that is stocked at your pharmacy. Constipation is also one of the most common side effects of pain medication. If you are using pain medication, be pro-active and try toPREVENT problems with constipation by taking the steps above BEFORE constipation becomes a problem. Q: What do I do if I need more pain medications? A: Call the office to receive refills. Be aware that certain pain meds cannot be called into a pharmacy and actually require a paper prescription. A change may be made in your pain med as you progress thru your recovery period or if you have side effects to certain meds. --Pain meds are NOT refilled after 5pm on weekdays, and NOT AT ALL on the weekends, so please look ahead to prevent problems. Q: Why am I having a hard time sleeping now that I am at home? A: Many medications you receive while you are in the hospital can impact your sleep for a number of days after your surgery/hospitalization. Decreased level of activity and naps during the day may alsomake sleeping at night difficult. Try to minimize day-time naps, and get up frequently during the day to walk around your home during your recovery time. Sleep aides may be of some help, but are not recommended for long-term use. Q: I am having some back discomfort. What should I do? A: This may be related to certain positioning that was required for your surgery, extended periods of time in bed, or other changes in your overall activity level. You may try ice, heat, acetaminophen,or ibuprofen to treat this temporarily. Note that many pain medications have acetaminophen in them and would state this on the prescription bottle. Be sure not to exceed the maximum of 4000mg per day of acetaminophen. If the pain you are having does not resolve, is severe, or is a flare of back pain you have had onother occasions prior to surgery, please contact your primary physician for further recommendations or for an appointment to be examined at their office. Q: Why am I having headaches? A: Headaches can be caused by many things: caffeine withdrawal, use of pain meds, dehydration, high blood pressure, lack of sleep, over-activity/exhaustion, flare-up of usual migraine headaches. If youfeel this is related to muscle tension (a band-like feeling around the head, or a pressure at the low-back of the head) you may try ice or heat to this area. You may need to drink more fluids (try electrolyte drink like Gatorade), rest, or take your usual migraine medications. If your headaches do not resolve, worsen, are accompanied by other symptoms, or if your blood pressure is high, please call your primary physician for recommendation and/or examination. Q: I am unable to urinate. What do I do? A: A small percentage of people can have difficulty urinating initially after surgery. This includesbeing able to urinate only a very small amount at a time and feeling discomfort or pressure in the very low abdomen. This is called ???urinary retention?? , and is actually an urgent situation. Proceedto your nearest Emergency department for evaluation (not an Urgent Care Center). Sometimes the bladder does not work correctly after certain medications you receive during surgery, or related to certain procedures. You may need to have a catheter placed until your bladder recovers. When planning to goto an Emergency department, it may help to call the ER to let them know you are coming in for this problem after a surgery. This may help you get in quicker to be evaluated. If you have symptoms of a urinary tract infection, please contact your primary physician for the proper evaluation and treatment. If you have other questions, please call the office Sunday thru Sunday between 8am and 5pm to discuss with the nurse or physician assistant terminal manager. # There is a surgeon LABEL CUTTER on weekday evenings and over the weekend in case of urgent need only, andmay be contacted at the same number. If you are having an emergency, call 911 or proceed to your nearest emergency department. documented in this encounter Medications at Time of Discharge Medication Sig Dispensed Refills Start Date End Date calcium carbonate (OS-HAVEN Take 2 tablets 100 tablet 0 201302/03/2014 500 MG [place]) 500 MG (1,000 mg) by tabletIndications: Primary mouth every 8 hyperparathyroidism (H) hours HYDROcodone-acetaminophen Take 1-2 tablets 28 tablet 0 12/3104/28/2014 (NORCO) 5-325 MG per by mouth every 4 tabletIndications: Primary hours as needed hyperparathyroidism (H) for moderate to severe pain ORDER FOR DMEIndications: Equipment being 2 Units 0 05/2604/28/2014 Edema ordered: compression stockings 15-20 mmhg [id number] Zzzquil, take 1 0 capsule daily as needed sertraline (ZOLOFT) 50 MG Take 1 tablet (50 180 tablet 3 02/03/2014 tabletIndications: Mild mg) by mouth 2 major depression (H), times daily Anxiety documented as of this encounter Progress Notes Vonnie Soler MD - 02/02/2014 8:44 AM CDT Quick Note: These results are as expected and will be discussed at the follow up visit. Vonnie Soler MD Vonnei Soler MD - 01/27/2014 10:14 AM CDT [facility] General Surgery Progress Note Assessment and Plan: Assessment: POD#1 s/p Procedure(s) with comments: PARATHYROIDECTOMY - Neck Exploration, Excision Parathyroid Adenoma, Pre Operative Sestimibi Injection, Rapid PTH Assay Doing well, calcium is great. Plan: Discharge today RTC with Dr. Soler in 1-3 weeks. RTC with Development Specialist in 4-6 weeks. Interval History: Feels good. Voice is normal. Physical Exam: Blood pressure 125/72, pulse 70, temperature 97.2 ??F (36.2 ??C), temperature source Oral, resp. rate 18, height 1.6 m (5' 2.99), weight 118 kg (260 lb 2.3 oz), SpO2 94 %. I/O last 3 completed shifts: In: 4401 [P.O.:500; I.V.:3901] Out: 1375 [Urine:1300; Drains:45; Blood:30] Neck - flat, no seroma/hematoma. Incision - clean, dry, intact. No erythema. Drain - No leakage around site. Output: pink/light pink & thin. DC'd without issue. Chv[place]ek's - negative Data: Recent Labs Lab Test 01/27/14 0610 01/26/14 2108 01/19/14 1341 12/15/13 1353 02/11/12 1955 03/20/11 0931 01/12/11 0845 HAVEN 9.1 9.5 -- 11.0* 11.4* -- 11.2* PTHI -- -- -- 583* -- -- -- HGB -- -- 14.0 -- 12.8 14.6 13.8 Vonnie Soler MD Imtiaz Sepulveda, ERICKSON - 01/26/2014 9:41 PM CDT Pt. walked hallway tolerated well.pt c/o headache and sore throat 03/10t ,refused norco ,IV dilaudid 0.2 mg given. patient requested to have forbes in until operations supervisor chemical cleaning. Jose Rodriguez - 01/26/2014 12:33 PM CDT 24.8mCi Tc99m SESTAMIBI injected for parathyroid adenoma detection. Jose Rodriguez, [facility]. documented in this encounter H&P Notes Holly Ascencio - 01/23/2014 9:55 AM CDT This note is for the purpose of making the H&P performed in clinic within the last 30 days available in the hospital surgical encounter. Source Note - Juan Daniel Arechiga MD - 01/19/2014 12:29 PM CDT PRE-OP EVALUATION: Today's date: 01/19/2014 (: 1940.) Lee Ann Herndon presents for pre-operative evaluation assessment as requested by Dr. Vonnie Soler. He requires evaluation and anesthesia risk assessment prior to undergoing surgery/procedure for treatment of parathyroid . Proposed procedure: Neck Expoloration, Exicison Parathyroid Adenoma, Pre Operative Sestimibi Injection, Rapid PTH Assay Date of Surgery/ Procedure: 01/26/2014 Time of Surgery/ Procedure: 12.30 pm Hospital/Surgical Facility: [facility] Primary Physician: Henry Dumont MD Type of Anesthesia Anticipated: General Patient has a Health Care Directive or Living Will: NO HPI: 1. NO - Do you have a history of heart attack, stroke, stent, bypass or surgery on an artery in the head, neck, heart or legs? 2. NO - Do you ever have any pain or discomfort in your chest? 3. NO - Have you ever had a severe pain across the front of your chest lasting for half an hour or more? 4. NO - Do you have a history of Congestive Heart Failure? 5. NO - Are you troubled by shortness of breath when: walking on the level/ up a slight hill/ at night? 6. NO - Does your chest ever sound wheezy or whistling? 7. NO - Do you currently have a cold, bronchitis or other respiratory infection? 8. NO - Have you had a cold, bronchitis or other respiratory infection within the last 2 weeks? 9. NO - Do you usually have a cough? 10. NO - Do you sometimes get pains in the calves of your legs when you walk? 11. NO - Do you or anyone in your family have previous history of blood clots? 12. NO - Do you or does anyone in your family have a serious bleeding problem such as prolonged bleeding following surgeries or cuts? 13. NO - Have you ever had problems with anemia or been told to take iron pills? 14. NO - Have you had any abnormal blood loss such as black, tarry or bloody stools, or abnormal vaginal bleeding? 15. NO - Have you ever had a blood transfusion? 16. NO - Have you or any of your relatives ever had problems with anesthesia? 17. NO - Do you have sleep apnea, excessive snoring or daytime drowsiness? 18. NO - Do you have any prosthetic heart valves? 19. YES - Do you have prosthetic joints? 20. NO - Is there any chance that you may be ? MEDICAL HISTORY: Past Medical History Diagnosis Date ??? Esophageal reflux ??? Depressive disorder, not elsewhere classified ??? Hiatal hernia 2010 ??? 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 Arthritis knees and left ankle ??? HTN, goal below 140/90 01/19/2014 Pt denies Current Outpatient Prescriptions Medication Sig Dispense Refill ??? sertraline (ZOLOFT) 50 MG tablet Take 1 tablet (50 mg) by mouth 2 times daily 180 tablet 3 ??? [id number] Zquil, take 1 capsule daily ??? ORDER FOR DME Equipment being ordered: compression stockings 15-20 mmhg 2 Units 0 Past Surgical History Procedure Laterality Date ??? [...] Orthopedic surgery bilat knee replaclement-- ankle repair OTC products: Zegerid, Zequil Multiple allergies to antibiotics, lisinopril caused dizziness Latex Allergy: NO History Social History ??? Marital Status: Spouse Name: Sacha Number of Children: 5 ??? Years of Education: N/A Occupational History ??? unemployed Unknown Social History Main Topics ??? Smoking status: Never Smoker ??? Smokeless tobacco: Never Used ??? Alcohol Use: No ??? Drug Use: No ??? Sexually Active: Yes -- Male partner(s) Other Topics Concern ??? Not on file Social History Narrative 2 children of her own and 3 step children History Drug Use No REVIEW OF SYSTEMS: C: NEGATIVE for fever, chills, change in weight E/M: NEGATIVE for ear, mouth and throat problems ENT/MOUTH: NEGATIVE for ear, mouth and throat problems and occasional dyspepsia, belching R: NEGATIVE for significant cough or SOB CV: NEGATIVE for chest pain, palpitations stable Pedal Edema since surgery EXAM: BP 152/96 Pulse 88 Temp(Src) 98.8 ??F (37.1 ??C) (Oral) Resp 14 Ht Wt GENERAL APPEARANCE: healthy, alert and no distress HENT: ear canals and TM's normal and nose and mouth without ulcers or lesions RESP: lungs clear to auscultation - no rales, rhonchi or wheezes CV: regular rate and rhythm, normal S1 S2, no S3 or S4 and no murmur, click or rub CV: regular rates and rhythm, normal S1 S2, no S3 or S4, no murmur, click or rub and 1 plus edema, varicose veins ABDOMEN: soft, nontender, no HSM or masses and bowel sounds normal DIAGNOSTICS: EKG: appears normal, NSR, normal axis, normal intervals, no acute ST/T changes c/w ischemia, no LVH by voltage criteria IMPRESSION: Reason for surgery/procedure: hyperparathyroid disease Diagnosis/reason for consult: assess perioperative risk The proposed surgical procedure is considered LOW risk. REVISED CARDIAC RISK INDEX The patient has the following serious cardiovascular risks for perioperative complications such as (NV, PE, VFib and 3?? AV Block): No serious cardiac risks INTERPRETATION: 0 risks: Class I (very low risk - 0.4% complication rate) The patient has the following additional risks for perioperative complications: No identified additional risks Pt with untreated borderline HTN, recent fall in GFR GFR Estimate Date Value Range Status 12/15/2013 57* >60 mL/min/1.7m2 Final 05/27/2013 71 >60 mL/min/1.7m2 Final 02/11/2012 78 >60 mL/min/1.7m2 Final GFR Estimate If Black Date Value Range Status 12/15/2013 69 >60 mL/min/1.7m2 Final 05/27/2013 86 >60 mL/min/1.7m2 Final 02/11/2012 >90 >60 mL/min/1.7m2 Final ICD-9-CM 1. Preop general physical exam V72.83 EKG 12-lead complete w/read - Clinics Hemoglobin RECOMMENDATIONS: --Approval given to proceed with proposed procedure, without further diagnostic evaluation Signed Electronically by: Juan Daniel Arechiga MD Copy of this evaluation report is provided to requesting physician. [facility] Preop Guidelines 2012 documented in this encounter ED Notes Aaliyah Boss RN - 01/27/2014 11:09 AM CDT OBSERVATION patient END time: 1109 Aaliyah Boss RN - 01/27/2014 9:27 AM CDT Up to bathroom with standby assist. Walks with cane Magalys Byers RN - 01/27/2014 6:00 AM CDT Bedside blood sugar 109 documented in this encounter Miscellaneous Notes Plan of Care - Jay Martinez RN - 01/27/2014 10:20 AM CDT Problem: IP GENERAL POC-ADULT,OB,BEHAVIORAL FVCPM Goal: Discharge Planning (Adult, OB, Behavioral, Peds) PRIMARY DIAGNOSIS/PROCEDURE: Parathroidectomy OUTPATIENT/OBSERVATION GOALS TO BE MET BEFORE DISCHARGE: 1. Stable vital signs Yes 2. Tolerating diet:Yes 3. Pain controlled with oral pain medications: Yes 4. Positive bowel sounds: Yes 5. Voiding without difficulty: Yes 6. Able to ambulate: Yes 7. Provider specific discharge goals met: Yes Plan of Care - Jay Martinez RN - 01/27/2014 7:45 AM CDT Problem: IP GENERAL POC-ADULT,OB,BEHAVIORAL FVCPM Goal: Discharge Planning (Adult, OB, Behavioral, Peds) PRIMARY DIAGNOSIS/PROCEDURE: Total Parathroidectomy OUTPATIENT/OBSERVATION GOALS TO BE MET BEFORE DISCHARGE: 1. Stable vital signs Yes 2. Tolerating diet:Yes 3. Pain controlled with oral pain medications: Yes 4. Positive bowel sounds: Yes 5. Voiding without difficulty: Forbes dc, need to voie 6. Able to ambulate: No 7. Provider specific discharge goals met: No Patient reported headache, pain rated 5/10. Plan of Care - Magalys Byers RN - 01/27/2014 3:53 AM CDT Problem: IP GENERAL POC-ADULT,OB,BEHAVIORAL FVCPM Goal: Discharge Planning (Adult, OB, Behavioral, Peds) PRIMARY DIAGNOSIS/PROCEDURE Parathyroidectomy OUTPATIENT/OBSERVATION GOALS TO BE MET BEFORE DISCHARGE: 1. Stable vital signs Yes 2. Tolerating diet:no Intermittent nausea, not sure if related to oral fluids or anesthesia 3. Pain controlled with oral pain medications: No chooses not to take pain medication 4. Positive bowel sounds: Yes 5. Voiding without difficulty: No forbes will come out at 0600 6. Able to ambulate: Yes 7. Provider specific discharge goals met: No Plan of Care - Magalys Byers RN - 01/27/2014 1:53 AM CDT Problem: IP GENERAL POC-ADULT,OB,BEHAVIORAL FVCPM Goal: Discharge Planning (Adult, OB, Behavioral, Peds) PRIMARY DIAGNOSIS/PROCEDURE Parathyroidectomy OUTPATIENT/OBSERVATION GOALS TO BE MET BEFORE DISCHARGE: 1. Stable vital signs Yes 2. Tolerating diet:Yes tolerating full liquids 3. Pain controlled with oral pain medications: no, has not needed pain meds (other than once on evenings when she was given IV pain medications per pt preference) 4. Positive bowel sounds: Yes 5. Voiding without difficulty: No Has forbes in; requests leaving it in until 0600 6. Able to ambulate: yes 7. Provider specific discharge goals met: No Plan of Care - Imtiaz Sepulveda RN - 01/26/2014 9:17 PM CDT Problem: IP GENERAL POC-ADULT,OB,BEHAVIORAL FVCPM Goal: Individualization/Patient-Specific Goal (Adult,OB,Behavioral The patient and/or their call center support representative will achieve their patient-specific goals related to the plan of care. The patient-specific goals include: Outcome: Improving PRIMARY DIAGNOSIS/PROCEDURE: parathyroidectomy OUTPATIENT/OBSERVATION GOALS TO BE MET BEFORE DISCHARGE: 1. Stable vital signs Yes 2. Tolerating diet:Yes 3. Pain controlled with oral pain medications: Yes 4. Positive bowel sounds: Yes 5. Voiding without difficulty: No,pt still has forbes 6. Able to ambulate: Yes 7. Provider specific discharge goals met: No Pharmacy-Admission Medication History - Maral Underwood RPH - 01/26/2014 8:36 PM CDT Pharmacy reviewed prior to admission med list from pre-admitting rn. Plan of Care - Imtiaz Sepulveda RN - 01/26/2014 5:15 PM CDT Problem: IP GENERAL POC-ADULT,OB,BEHAVIORAL FVCPM Goal: Individualization/Patient-Specific Goal (Adult,OB,Behavioral The patient and/or their call center support representative will achieve their patient-specific goals related to the plan of care. The patient-specific goals include: Outcome: No Change PRIMARY DIAGNOSIS/PROCEDURE: parathyroidectomy OUTPATIENT/OBSERVATION GOALS TO BE MET BEFORE DISCHARGE: 1. Stable vital signs Yes 2. Tolerating diet:No 3. Pain controlled with oral pain medications: No 4. Positive bowel sounds: No 5. Voiding without difficulty: No 6. Able to ambulate: No 7. Provider specific discharge goals met: No Op Note - Vonnie Soler MD - 01/26/2014 3:13 PM CDT General Surgery Operative Note PREOPERATIVE DIAGNOSIS: Primary hyperparathyroidism. POSTOPERATIVE DIAGNOSIS: Primary hyperparathyroidism. 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 ANESTHESIA: General. PREOPERATIVE MEDICATIONS: Levaquin. SURGEON: Vonnie Soler MD CUSTOMER SUCCESS SPECIALIST: Sarah Agosto PA-C ESTIMATED BLOOD LOSS: 30 cc's INDICATIONS: Lee Ann Herndon is a 73 year old female who has primary hyperparathyroidism. She hashad symptoms of fatigue, irritability, difficulty concentrating and depression. She has been found to have an elevated calcium of 11.0. She has a non-localizing sestamibi, but I can see a finding on both the right and left sides. She presents today for neck exploration, excision of parathyroid adenoma. Her PTH preoperatively is 498. DESCRIPTION OF PROCEDURE: The patient was placed supine, head and neck in extension and a bump between the scapulae. Transverse cervical neck creases had been marked in the preinduction area and the one most suitable was utilized for exposure. The gamma probe was utilized to find the area of increasedcounts which correlated with the preoperative localizing sestimibi. Incision was made, superior and inferior skin flaps raised. Midline fascia opened and reflected to the right. An abnormal parathyroidwas identified at the right superior location. It was meticulously dissected from the surrounding tissue and submitted for frozen section which confirmed a 0.262 gram hypercellular parathyroid. We then explored the right inferior neck. During the exploration, I encountered what I believe to be the second parathyroid. It was not biopsied but appeared to represent normal parathyroid tissue. The site was irrigated and inspected for hemostasis. The PTH assays were sent at 15 and 25 minutes post-excisionand the first value came back at 514, signifying that we were not done with the dissection. We then explored the left side and found a normal appearing parathyroid gland on the posterior aspect of the thyroid gland. We did find increased counts in the deep inferior neck and upper mediastinum where I wo ndered about another adenoma. A very large adenoma was found lateral to the esophagus and deep on the spine in the upper mediastinum. It was 2.6 grams and hypercellular. PTH assays were sent at 15 and 25 minutes post-excision of that large gland and the first value came back as 59.7, signifying the completeness of the procedure. The patient's incision site was then closed with running 3-0 Vicryl for the midline fascia, interrupted for platysma and 4-0 subcuticular Monocryl for skin. Marcaine 0.25% plain was instilled and the patient transferred to recovery in good condition. INTRAOPERATIVE FINDINGS: 1. A 2.6 gram hypercellular left superior parathyroid (mediastinal) adenoma and 0.262 gm right superior adenoma. Case done with increased difficulty. 2. Second left-sided parathyroid appeared to be grossly normal. 3. PTH assay diminished from 498 to 59.7 at 15 minutes post excision and 36.8 at 25 minutes post excision. 4. Grossly small thyroid. 5. Bilateral recurrent laryngeal nerve seen, function confirmed by nerve monitor. Specimens: ID Type Source Tests Collected by Time Destination A : Right Superior Parathyroid Tissue Head/Neck SURGICAL PATHOLOGY EXAM Vonnie Soler MD 01/26/2014 1:55 PM Pathology B : Left Parathyroid Tissue Head/Neck SURGICAL PATHOLOGY EXAM Vonnie Soler MD 01/26/2014 2:41 PM Pathology 1 : PTH O.R. Blood PARATHORMONE INTACT INTRAOPERATIVE Vonnie Soler MD 01/26/2014 2:10 PM Clinical Lab 2 : PTH O.R. Blood PARATHORMONE INTACT INTRAOPERATIVE Vonnie Soler MD 01/26/2014 2:57 PM Clinical Lab 3 : PTH O.R. Blood PARATHORMONE INTACT INTRAOPERATIVE Vonnie Soler MD 01/26/2014 3:08 PM Clinical Lab Vonnie Soler MD documented in this encounter Plan of Treatment Not on filedocumented as of this encounter Procedures Procedure Name Priority Date/Time Associated Diagnosis Comme nts CALCIUM Timed 01/27/2014 6:10 Primary Results for AM CDT hyperparathyroidism (H) this procedure are in the results section. GLUCOSE BY METER Routine 01/27/2014 5:54 Primary Results for AM CDT hyperparathyroidism (H) this procedure are in the results section. CALCIUM Timed 01/26/2014 9:08 Primary Results for PM CDT hyperparathyroidism (H) this procedure are in the results section. GLUCOSE BY METER Routine 01/26/2014 6:34 Primary Results for PM CDT hyperparathyroidism (H) this procedure are in the results section. PARATHYROID HORMONE STAT 01/26/2014 3:08 Primary Resul ts for INTACT INTRAOPERATIVE PM CDT hyperparathyroidism (H) this procedure are in the results section. PARATHYROID HORMONE STAT 01/26/2014 2:57 Primary Resul ts for INTACT INTRAOPERATIVE PM CDT hyperparathyroidism (H) this procedure are in the results section. PARATHYROID HORMONE STAT 01/26/2014 2:10 Primary Resul ts for INTACT INTRAOPERATIVE PM CDT hyperparathyroidism (H) this procedure are in the results section. SURGICAL PATHOLOGY EXAM Routine 01/26/2014 1:55 R esults for PM CDT this procedure are in the results section. PARATHYROIDECTOMY 01/26/2014 Hyerparathyroidism 12:53 PM CDT Special Needs 5'3.5 / 233# per H&P NM PARATHYROID Routine 01/26/2014 12:36 Primary Results f or SURGICAL INJECTION PM CDT hyperparathyroidism (H ) this procedure are in the results section. PARATHYROID HORMONE STAT 01/26/2014 11:20 Primary Resu lts for INTACT INTRAOPERATIVE AM CDT hyperparathyroidism (H) this procedure are in the results section. PATHOLOGY RESULT - 01/26/2014 12:00 HIM SCAN AM CDT PATHOLOGY RESULT - 01/26/2014 12:00 HIM SCAN AM CDT documented in this encounter Results Calcium (01/27/2014 6:10 AM CDT) athologist Signature Calcium 9.1 8.5 - 10.4 [facility] mg/dL [facility] Specimen Anatomical Collection Method Collection Time Receive d Time (Source) Location / / Volume Laterality Blood specimen 01/27/2014 6:10 AM 014 6:23 (specimen) CDT AM CDT Vonnie Soler MD LAB - BLOOD ORDERABLES Performing Organization Address City/State/ZIP Code Phon e Number [place] [address], [place] [address] [facility] (ABNORMAL) Glucose by meter (01/27/2014 5:54 AM CDT) athologist Signature Glucose 109 (H) 60 - 99 POINT OF CARE mg/dL TEST, GLUCOSE Specimen Anatomical Collection Method Collection Time Receive d Time (Source) Location / / Volume Laterality 01/27/2014 5:54 AM 4 9:50 CDT PM CDT Vonnie Soler MD LAB - BEAKER POCT Performing Organization Address City/State/ZIP [facility] Phon e Number [place] POINT OF CARE TEST, GLUCOSE POINT OF CARE TEST, GLUCOSE Calcium (01/26/2014 9:08 PM CDT) athologist Signature Calcium 9.5 8.5 - 10.4 [facility] mg/dL [facility] Specimen Anatomical Collection Method Collection Time Receive d Time (Source) Location / / Volume Laterality Blood specimen 01/26/2014 9:08 PM 014 9:18 (specimen) CDT PM CDT Vonnie Soler MD LAB - BLOOD ORDERABLES Performing Organization Address City/State/ZIP Code Phon e Number M [facility] [address] [place], [place] [address] [facility] (ABNORMAL) Glucose by meter (01/26/2014 6:34 PM CDT) P athologist Signature Glucose 155 (H) 60 - 99 POINT OF CARE mg/dL TEST, GLUCOSE Specimen Anatomical Collection Method Collection Time Receive d Time (Source) Location / / Volume Laterality 01/26/2014 6:34 PM 4 6:40 CDT PM CDT Vonnie Soler MD LAB - BEAKER POCT Performing Organization Address City/[facility]/ZIP Code Phon e Number [place] POINT OF CARE TEST, GLUCOSE POINT OF CARE TEST, GLUCOSE Parathormone intact intraoperative (01/26/2014 3:08 PM CDT) [facility] gist Method Time Signature Parathyroid Hormone 36.8 12 - 72 [place] Intact pg/mL [facility] LAB Comment: [facility] Specimen Anatomical Collection Method Collection Time Receive d Time (Source) Location / / Volume Laterality 01/26/2014 3:08 PM 4 3:11 CDT PM CDT Vonnie Soler MD LAB - BLOOD ORDERABLES Performing Organization Address City/[facility]/ZIP Code Phon e Number M [facility] [address] [place], [place] [address] [facility] Parathormone intact intraoperative (01/26/2014 2:57 PM CDT) Patholo gist Method Time Signature Parathyroid Hormone 59.7 12 - 72 [place] Intact pg/mL [facility] LAB Comment: CALLED OT OR1 @1530 ON 01/26/14 BY MT Specimen Anatomical Collection Method Collection Time Receive d Time (Source) Location / / Volume Laterality 01/26/2014 2:57 PM 4 3:00 CDT PM CDT Vonnie Soler MD LAB - BLOOD ORDERABLES Performing Organization Address City/State/ZIP Code Phon e Number M [facility] [address] [place], [place] [address] [facility] (ABNORMAL) Parathormone intact intraoperative (01/26/2014 2:10 PM CDT) [facility] [employer] Method Time Signature Parathyroid 514 (H) 12 - 72 [place] Hormone Intact pg/mL [facility] Intraoperative HOSPITAL LAB Comment: [place] .[id number] AT 1440T ON 01.26.14 BY BINH Crowell Specimen Anatomical Collection Method Collection Time Receive d Time (Source) Location / / Volume Laterality 01/26/2014 2:10 PM 4 2:13 CDT PM CDT Vonnie Soler MD LAB - BLOOD ORDERABLES Performing Organization Address City/State/ZIP Code Suni e Moriah Foreman [facility] [address] [place], [place] [address] [facility] Surgical pathology exam (01/26/2014 1:55 PM CDT) Component Value Ref Test Analysis Performed At [facility] [employer] Range Method Time Signature Copath Report Patient Name: LEE ANN HERNDON MR#: [id number] Specimen #: [id number] Collected: 01/26/2014 Received: 01/26/2014 Reported: 01/27/2014 14:35 Ordering Phy(s): VONNIE SOLER Additional Phy(s): JULIA BARCLAY SPECIMEN(S): A: Parathyroid gland, right superior B: Parathyroid gland, left FINAL DIAGNOSIS: A. ??Parathyroid gland, right superior, excision - Enlarged and hypercellular parathyroid gland with cystic changes. B. ??Parathyroid gland, left, excision - Enlarged and hyperc ellular parathyroid gland. COMMENT: The left parathyroid gland has the appearance of parathyroid adenoma. There is a well-circumscribed hypercellular proliferation. ? ?It is bordered by parathyroid gland with adipose tissue. ??The rig ht superior parathyroid gland shows increased size and cellularity. ??Co rrelation with rapid PTH and clinical findings is recommended. Electronically signed out by: Chadd Flowers M.D. CLINICAL HISTORY: Hyperparathyroidism. GROSS: A. ??The specimen, labeled right superior parathyroid gland, consists of 0.262 g and 1.5 cm x 0.5 cm x 0.2 cm yellow-brown soft gland . ??The specimen is submitted in its entirety. 1 -frozen section and 2 -serial sections of the rest of the specimen. (Dictated by: Chadd Flowers MD 01/26/2014 02:25 PM) B. ??The specimen, labeled left parathyroid gland, consist s of a 1.62 gm and 2.6 cm in diameter dave to brown soft parathyroid glan d. ??The specimen is submitted in its entirety. SUMMARY OF SECTIONS: 1. ??Frozen section. 2 and 3. ??Serial sections of the rest of the gland. MGP/kd INTRAOPERATIVE CONSULTATION: FROZEN SECTION DIAGNOSIS: A. ??Right superior parathyroid gland: -Enlarged and hypercellular parathyroid gland (MGP). B. ??Left parathyroid gland: -Enlarged and hypercellular parathyroid gland (MGP). MICROSCOPIC: A and B. ??Microscopic examination was performed. MGP/kd 01-27-14 CPT Codes: A: 63472-OB1, 83770-KI B: 75160-KT2, 43334-BT TESTING LAB LOCATION: [address] ??[id number] COLLECTION SITE: Client: [facility] Location: RHOR (R) Specimen Anatomical Collection Method Collection Time Receive d Time (Source) Location / / Volume Laterality 01/26/2014 1:55 PM 4 2:05 CDT PM CDT Vonnie Soler MD LAB - ANY Performing Organization Address City/State/ZIP Code Phon e Number [place] Parathyroid Surgical Injection (01/26/2014 12:36 PM CDT) Anatomical Region Laterality Modality Neck Nuclear Medicine Specimen (Source) Anatomical Location Collection Method / Collectio n Time Received Time / Laterality Volume Narrative 01/26/2014 3:22 PM CDT NUCLEAR MEDICINE PARATHYROID SURGICAL INJECTION ??01/26/2014 12:36 PM ?? HISTORY: Primary hyperparathyroidism. Pr esurgical injection. TECHNIQUE: 24.8 mCi technetium 99m sesta mibi prior to surgery for parathyroid adenoma detection. KIANNA ELAINE MD Procedure Note Kianna Elaine MD - 01/26/2014Form atting of this note might be different from the original. NUCLEAR MEDICINE PARATHYROID SURGICAL IN JECTION 01/26/2014 12:36 PM HISTORY: Primary hyperparathyroidism. Pr esurgical injection. TECHNIQUE: 24.8 mCi technetium 99m sesta mibi prior to surgery for parathyroid adenoma detection. KIANNA ELAINE MD Vonnie Soler MD IMG NM ORDERABLES (ABNORMAL) Parathormone Intact Intraoperative (01/26/2014 11:20 AM CDT) [facility] gist Method Time Signature Parathyroid 498 (H) 12 - 72 [place] Hormone Intact pg/mL [facility] LAB Comment: Called to GERRY NEWTON IN [place] AT 1151T ON 12.31 BY BINH Crowell Specimen Anatomical Collection Method Collection Time Receive d Time (Source) Location / / Volume Laterality Blood specimen 01/26/2014 11:20 4 (specimen) AM CDT 11:22 AM CDT Vonnie Soler MD LAB - BLOOD ORDERABLES Performing Organization Address City/State/ZIP Code Phon e Number M [facility] [address], [place] [address] [facility] PATHOLOGY RESULT - HIM SCAN (01/26/2014 12:00 AM CDT) Specimen (Source) Anatomical Location Collection Method / Collectio n Time Received Time / Laterality Volume 01/26/2014 Narrative This result has an attachment that is no t available. Provider Scan LAB - [place] SPECIAL DIAG OR DERABLES PATHOLOGY RESULT - HIM SCAN (01/26/2014 12:00 AM CDT) Specimen (Source) Anatomical Location Collection Method / Collectio n Time Received Time / Laterality Volume 01/26/2014 Narrative This result has an attachment that is no t available. Provider Scan LAB - [place] SPECIAL DIAG OR DERABLES documented in this encounter Visit Diagnoses Diagnosis Primary hyperparathyroidism (H) Primary hyperparathyroidism Primary hyperparathyroidism (H) Primary hyperparathyroidism documented in this encounter Administered Medications Inactive Administered Medications - up to 3 most recent administrations Medication Order MAR Action Action Date Dose Rate Site acetaminophen (OFIRMEV) 10 Given 01/26/2014 4:33 PM 1,000 mg 4 00 mL/hr mg/mL infusion 1,000 mg CDT 1,000 mg, Intravenous, at 400 mL/hr, ONCE PRN, other, if pain relief not effective after narcotic dose, Administer over 15 Minutes, Starting on Sun01/26/14 at 1558, For 1 dose, Maximum dose of acetaminophen is 4000 mg from all sources., PACU acetaminophen (TYLENOL) tablet 325 mg Given 01/27/2014 7:47 AM CDT 325 mg 325 mg, Oral, EVERY 4 HOURS PRN, mild pain, fever, Starting on Sun01/27/14 at 0325, Acetaminophen taken fron the [place] order Maximum acetaminophen dose from all sources = 75 mg/kg/day not to exceed 4 grams/day. calcium carbonate (OS-HAVEN 500 mg [place]. Ca) Given 01/27 5:34 AM CDT 1,000 mg tablet 1,000 mg 1,000 mg (2 tablet), Oral, EVERY 12 HOURS SCHEDULED, First dose (after last reorder) on Sun01/26/14 at 2000, May substitute equivalent dose Calcium suspension or Tums if patient unable to swallow tablets. OS-HAVEN 500 = 1250 mg calcium carbonate Given 01/26/2014 7:38 PM CDT 1,000 mg HYDROmorphone (DILAUDID) injection 0.2 m g Given 01/26/2014 9:29 PM CDT 0.2 mg 0.2 mg, Intravenous, EVERY 2 HOURS PRN, severe pain, or if patient unable to take PO, Starting on Sun01/26/14 at 1719, Hold while on LUBRICATING SPECIALIST. lactated ringers Rate/Dose Verify 01/27/2014 6:24 AM CDT 1,000 mLs 1 00 mL/hr infusion at 100 mL/hr, Intravenous, CONTINUOUS, Saline lock when taking po well., Starting on Sun01/26/14 at 1730, Until Sun01/27/14 at 1339 New Bag 01/27/2014 3:08 AM CDT 1,000 mLs 100 mL/hr New Bag 01/26/2014 5:33 PM CDT 1,000 mLs 100 mL/hr ondansetron (ZOFRAN) injection 4 mg Given 01/27/2014 6:51 AM CDT 4 mg 4 mg, Intravenous, EVERY 6 HOURS PRN, nausea, vomiting, Administer over 2-5 Minutes, Starting on Sun01/26/14 at 1719, This is Step 1 of nausea and vomiting protocol. If nausea not resolved in 15 minutes, go to Step 2 (Prochlorperazine). Given 01/27/2014 1:15 AM CDT 4 mg phenol-menthol (CEPASTAT) lozenge 1-2 Given 01/26/2014 5:37 PM C DT 2 lozenges lozenge 1-2 lozenge, Buccal, EVERY 1 HOUR PRN, sore throat, Starting on Sun01/26/14 at 1719, For sore throat without fever. sodium chloride (PF) 0.9% PF flush 3 mL Given 01/26/2014 5:35 PM CDT 3 mLs 3 mL, Intravenous, EVERY 8 HOURS, First dose on Sun01/26/14 at 1730, to lock peripheral IV dormant line. Also Ordered Q1H PRN technetium sestamibi 1 UD per study (Tc99m Given 01/26 12:45 PM CDT 24.8 mCi MiBi) radioisotope injection 25 mCi 25 mCi, Intravenous, ONCE, On Sun01/26/14 at 1245, For 1 dose, Radioisotope, supplied by and administered by Nuclear Medicine. *HW* documented in this encounter Active and Recently Administered Medications Times are shown in CDT. Scheduled Medication Order 01/25/2014 01/26/2014 01/27/2014 calcium carbonate (OS-HAVEN 500 mg [place]. Ca) tablet 1,000 mg 1938 (Given - Provider: Imtiaz Sepulveda RN) 0534 (Given - Provider: Caren Gant) 1,000 mg (2 tablet), Oral, EVERY 12 HOUR S SCHEDULED, First dose on Sun01/26/14 at 2000, May substitute equivalent dose Calcium suspension or Tums if patient unable to swallow tablets. OS-HAVEN 500 = 1250 mg calcium carbonate levofloxacin (LEVAQUIN) IVPB 500 mg (COMPLETED) 1300 (Given - Provider: Marsha Byrnes APRN AMALGAMATOR) 500 mg, Intravenous, PRE-OP/PRE-PROCEDUR E, Starting Sun01/26/14 at 1113, For 1 dose, Administer at a rate of no greater than 100mL/hr, Indications: Surgical Prophylaxis, Pre-procedure sodium chloride (PF) 0.9% PF flush 3 mL (CANCELED) 1735 (Given - Provider: Imtiaz Sepulveda RN) 0048 (Not Given - Provider: Magalys anaya RN - Reason: IV Infusing)0903 (Not Given - Provider: Jay Martniez, ERICKSON - Reason: End Administration) 3 mL, Intravenous, EVERY 8 HOURS, First dose on Sun01/26/14 at 1730, to lock peripheral IV dormant line. Also Ordered Q1H PRN technetium sestamibi 1 UD per study (Tc9 9m MiBi) radioisotope injection 25 mCi (COMPLETED) 1245 (Given - Provider: Jose Rodriguez) 25 mCi, Intravenous, ONCE, Sun01/26/14 a t 1245, For 1 dose, Radioisotope, supplied by and administered by Nuclear Medicine. *HW* Continuous Medication Order 01/25/2014 01/26/2014 01/27/2014 lactated ringers infusion (CANCELED) 125 9 (New Bag - Provider: Marsha Byrnes APRN CRNA)1336 (New Bag - Provider: Marsha Byrnes APRN AMALGAMATOR)1455 (New Bag - Provider: Marsha Byrnes APRN AMALGAMATOR) 1021 (Stopped - Provider: Jay Martinez RN - Comment: stopped by other, dc purpose) at 75-100 mL/hr, Intravenous, CONTINUOUS , UNLESS otherwise indicated., Pre- procedure, Starting Sun01/26/14 at 1130, Until Sun01/26/14 at 1546 1529 (Anesthesia Volume Adjustment - Provider: Marsha Byrnes APRN CRNA) lactated ringers infusion (CANCELED) 173 3 (New Bag - Provider: Imtiaz Sepulveda, ERICKSON) 0308 (New Bag - Provider: Magalys Byers, RN)0624 (Rate/Dose Verify - Provider: Magalys Byers, RN)0900 (Stopped - Provider: Jay Martinez, ERICKSON) at 100 mL/hr, Intravenous, CONTINUOUS, S hany lock when taking po well., Starting Sun01/26/14 at 1730, Until Sun01/27/14 at 1339 PRN Medication Order 01/25/2014 01/26/2014 01/27/2014 acetaminophen (OFIRMEV) 10 mg/mL infusion 1,000 mg (COMPLETE D) 1633 (Given - Provider: Meenu Banks RN) 1,000 mg, Intravenous, at 400 mL/hr, ONC E PRN, 1 dose, Starting Sun01/26/14 at 1558, Until Discontinued, other, if pain relief not effective after narcotic dose, PACU, Maximum dose of acetaminophen is 4000 mg from all sources. acetaminophen (TYLENOL) tablet 325 mg (CANCELED) 07 (Given - Provider: Jay Martinez RN) 325 mg, Oral, EVERY 4 HOURS PRN, mild pa in, fever, Starting Sun01/27/14 at 0325, Acetaminophen taken fron the [place] order Maximum acetaminophen dose from all sources = 75 mg/kg/day not to exceed 4 grams/day. bupivacaine (MARCAINE) 0.25 % injection (CANCELED) 151 (Given - Provider: Vonnie Soler MD) PRN, Starting Sun01/26/14 at 1512, Intra-procedure HYDROcodone-acetaminophen (NORCO) 5-325 MG per tablet 1 tablet 1 tablet, Oral, EVERY 4 HOURS PRN, moder ate to severe pain, Starting Sun01/26/14 at 1719, Hold while on LUBRICATING SPECIALIST or with regular IV opioid dosing. Maximum acetaminophen dose from all sources= 75 mg/kg/day not to exceed 4 grams HYDROmorphone (DILAUDID) injection 0.2 mg (CANCELED) 2128 (Given - Provider: Imtiaz Sepulveda RN - Comment: IVP) 0.2 mg, Intravenous, EVERY 2 HOURS PRN, Starting Sun01/26/14 at 1719, Until Sun01/27/14 at 1339, severe pain, or if patient unable to take PO, Hold while on LUBRICATING SPECIALIST. ondansetron (ZOFRAN) injection 4 mg (CANCELED) 0115 (Given - Provider: Magalys Byers, RN)0651 (Given - Provider: Mgaalys Byers, RN) 4 mg, Intravenous, EVERY 6 HOURS PRN, na usea, vomiting, for 2 Minutes, Starting Sun01/26/14 at 1719, This is Step 1 of nausea and vomiting protocol. If nausea not resolved in 15 minutes, go to Step 2 (Prochlorperazine). phenol-menthol (CEPASTAT) lozenge 1-2 lozenge (CANCELED) 1737 (Given - Provider: Imtiaz Sepulveda RN) 1-2 lozenge, Buccal, EVERY 1 HOUR PRN, s ore throat, Starting 01/26/14 at 1719, For sore throat without fever. documented in this encounter Care Teams Hospital Unit Coordinator Relationship Specialty Start Date End Date Julia White MD PCP - General Family Practice 12/18/13 11/01/14 [address] [place] [address] documented as of this encounter
--- OUTSIDE RECORDS SUMMARY | 2022-07-19 22:59 | XMS_ITS | Encounter Summary ---
:1940 Author Organization [place] Address [facility] [place] [address] Care Team Providers Name Role Phone Julia White MD Primary Care Provider Reason for Visit Reason Comments Surgical Followup PO excision of right superio r and left superior parathyroid adenoma bilat neck exploration 2013 Encounter Details Date Type Department Care Team Description 02/11/2014 Office Visit [facility] Vonnie Murphy Foll ow-up Surgery Clinic MD examination, [place] [address] following unspecified [address] ([address] [place] [address] [phone] Social History Tobacco Use Types Packs/Day Years Used Date Smoking Tobacco: Never Smokeless Tobacco: Never Alcohol Use Standard Drinks/Week Comments No 0 (1 standard drink = 0.6 oz pure alcoho l) Sex Assigned at Date Recorded Not on file documented as of this encounter Progress Notes Vonnie Murphy MD - 02/11/2014 12:30 PM CDT Progress Note/Post-op Follow up: Lee Ann is here for follow up after bilateral neck exploration, excision of the right superior and left superior parathyroid adenomas 2 1/2 weeks ago. She reports better energy. Overall, she has noticed improvement in her symptoms of fogginess or difficulty concentrating. She was admitted for post-op hypocalcemia which is indicative of a curative operation, exacerbated by the Vitamin D deficiency. Denies numbness or tingling. Incisional discomfort is nearly resolved. Physical Exam: There were no vitals taken for this visit. General: Appears well, in no acute distress HEENT: Chvostek's sign is negative. Neck: Incision site healing nicely, Healing ridge is noticable. Range of motion is normal. Neuro: Voice is Normal. Calcium today is 9.2 Pathology: Parathyroid adenoma, 2.6 gm, left superior parathyroid gland, Right superior gland 0.26 grams and hypercellular. Assessment and Plan: Lee Ann is doing well after bilateral neck exploration, excision of the superior parathyroid parathyroid adenomas. I recommend a follow up with Dr Figueroa in the next few weeks for Vitamin D deficiency, and scheduling of her DEXA. I would recommend checking her calcium at least annually. I would only check a PTH if her calcium level is elevated. I would be happy to see her if there are any ongoing issues, but currently, there are no signs of post-operative complications. Vonnie Murphy MD Please route to: Primary Care Provider (PCP) HPI ROS Physical Exam documented in this encounter Plan of Treatment Not on filedocumented as of this encounter Visit Diagnoses Diagnosis Follow-up examination, following unspeci fied surgery - Primary documented in this encounter Care Teams Chairman And Chief Executive Officer Relationship Specialty Start Date End Date Julia White MD PCP - General Family Practice 12/18/13 11/01/14 [address] [place] [address] documented as of this encounter
--- OUTSIDE RECORDS SUMMARY | 2022-07-19 22:59 | XMS_ITS | Encounter Summary ---
:1940 Author Organization [place] Address [address] [place] [address] Care Team Providers Name Role Phone Julia White MD Primary Care Provider Encounter Details Date Type Department Care Team Description 01/15/2014 Orders Only [facility], Primary hy perparathyroidism [facility] MD Vonnie (H) (Primary Dx) [address] [place] [phone] [place], [place] [phone] [id number] Social History Tobacco Use Types Packs/Day Years Used Date Smoking Tobacco: Never Smokeless Tobacco: Never Alcohol Use Standard Drinks/Week Comments No 0 (1 standard drink = 0.6 oz pure alcoho l) Sex Assigned at Date Recorded Not on file documented as of this encounter Plan of Treatment Not on filedocumented as of this encounter Visit Diagnoses Diagnosis Primary hyperparathyroidism (H) - Primar y Primary hyperparathyroidism documented in this encounter Care Teams Tool Programmer Relationship Specialty Start Date End Date Julia White MD PCP - General Family Practice 12/18/13 11/01/14 [address] [place] [address] documented as of this encounter
--- OUTSIDE RECORDS SUMMARY | 2022-07-19 22:59 | XMS_ITS | Encounter Summary ---
:1940 Author Organization [place] Address [address] [place] [address] Care Team Providers Name Role Phone Julia White MD Primary Care Provider Encounter Details Date Type Department Care Team Description 02/11/2014 Hospital Encounter [facility] Vonnie Murphy , Hypocalcemia [facility] [address] [facility] [address] [place], [place] [phone] [place] [address] [phone] (Wo rk) Social History Tobacco Use Types Packs/Day Years Used Date Smoking Tobacco: Never Smokeless Tobacco: Never Alcohol Use Standard Drinks/Week Comments No 0 (1 standard drink = 0.6 oz pure alcoho l) Sex Assigned at Date Recorded Not on file documented as of this encounter Medications at Time of Discharge Medication Sig Dispensed Refills Start Date End Date cholecalciferol 27302 Take 1 capsule by 8 capsule 0 014 03/31/2014 UNITS capsuleIndications: mouth once a week Vitamin D deficiency for 8 doses disease calcium carbonate (OS-HAVEN Take 2 tablets 90 tablet 0 201304/28/2014 500 MG [place]) 500 MG (1,000 mg) by tabletIndications: mouth 3 times Hypocalcemia daily calcium citrate Take 1 tablet (950 100 tablet 0 02/04/2014 0 01/22/2015 (CALCITRATE) 950 MG mg) by mouth 4 tabletIndications: times daily Hypocalcemia HYDROcodone-acetaminophen Take 1-2 tablets tablet 0 12/3104/28/2014 (NORCO) 5-325 MG per by mouth every 4 tabletIndications: Primary hours as needed hyperparathyroidism (H) for moderate to severe pain IBUPROFEN PO Take 200 mg by 0 06/28/20 16 mouth as needed for moderate pain ORDER FOR DMEIndications: Equipment being 2 Units 0 05/2604/28/2014 Edema ordered: compression stockings 15-20 mmhg [id number] Zzzquil, take 1 0 capsule daily as needed Sertraline HCl (ZOLOFT PO) Take 25 mg by 0 04/28/2014 mouth daily Sertraline HCl (ZOLOFT PO) Take 25 mg by 0 01/22/2015 mouth daily as needed (if having a bad day can take one extra tablet) documented as of this encounter Plan of Treatment Not on filedocumented as of this encounter Procedures Procedure Name Priority Date/Time Associated Diagnosis Comme nts CALCIUM IONIZED Routine 02/11/2014 10:55 AM Hypocalcemia Resul ts for this CDT procedure are i n the results section. CALCIUM Routine 02/11/2014 10:55 AM Hypocalcemia Results for this CDT procedure are i n the results section. documented in this encounter Results Calcium ionized (02/11/2014 10:55 AM CDT) athologist Signature Calcium Ionized 4.7 4.4 - 5.2 [place] mg/dL [facility] Specimen Anatomical Collection Method Collection Time Receive d Time (Source) Location / / Volume Laterality Blood specimen 02/11/2014 10:55 4 (specimen) AM CDT 11:03 AM CDT Sarah Machado PA-C LAB - BLOOD ORDERABLES Performing Organization Address City/State/ZIP Code Phon e Number M [facility] [address] [place], [place] [address] [facility] Calcium (02/11/2014 10:55 AM CDT) athologist Signature Calcium 9.2 8.5 - 10.4 [facility] mg/dL [facility] Specimen Anatomical Collection Method Collection Time Receive d Time (Source) Location / / Volume Laterality Blood specimen 02/11/2014 10:55 4 (specimen) AM CDT 11:03 AM CDT Sarah Machado PA-C LAB - BLOOD ORDERABLES Performing Organization Address City/State/ZIP Code Phon e Number M [facility] [address] [place], [place] [address] [facility] documented in this encounter Visit Diagnoses Diagnosis Hypocalcemia documented in this encounter Care Teams Foil Cutter Relationship Specialty Start Date End Date Julia White MD PCP - General Family Practice 12/18/13 11/01/14 [address] [place], [place] [id number] documented as of this encounter
--- OUTSIDE RECORDS SUMMARY | 2022-07-19 22:59 | XMS_ITS | Encounter Summary ---
:1940 Author Organization [place] Address [address] [place] [address] Care Team Providers Name Role Phone Julia White MD Primary Care Provider Reason for Visit Reason Comments Consult hyperparathyroid Encounter Details Date Type Department Care Team Description 12/31/2013 Office Visit [facility], Primary hyperparathyroidism Surgery Clinic MD Vonnie (H) (Primary Dx) [place] [address] [facility] [address] [place] [phone] Social History Tobacco Use Types Packs/Day Years Used Date Smoking Tobacco: Never Smokeless Tobacco: Never Alcohol Use Standard Drinks/Week Comments No 0 (1 standard drink = 0.6 oz pure alcoho l) Sex Assigned at Date Recorded Not on file documented as of this encounter Last Filed Vital Signs Vital Sign Reading Time Taken Comments Blood Pressure 142/80 12/31/2013 3:05 PM CDT Pulse 80 12/31/2013 3:05 PM CDT Temperature - - Respiratory Rate - - Oxygen Saturation - - Inhaled Oxygen Concentration - - Weight 105.7 kg (233 lb) 12/31/2013 3:05 PM CDT pt repo rted Height 161.3 cm (5' 3.5) 12/31/2013 3:05 PM CDT pt rep orted Body Mass Index 40.63 12/31/2013 3:05 PM CDT documented in this encounter Patient Instructions Patient InstructionsMarisol Yanes - 12/31/2013 4:[address] SCAN w/ SPECT DUAL ISOTOPE Date: 01-06-14 Time: 9:00 AM Location: [place] [address] [place] [address] Please check in at the skyway lobby at 8:45 AM documented in this encounter Progress Notes Briseida Merino CMA - 12/31/2013 3:08 PM CDT HPI ROS (Review of Systems): Respiratory: Positive for pneumonia. Physical Exam Vonnie Murphy MD - 12/30/2013 12:06 PM CDT History of Present Illness: Lee Ann Herndon is a 73 year old female who is sent by Dr Julia White for evaluation of hypercalcemia. She had an elevated calcium found on screening bloodwork. She has a calcium level as high as 11.0. She has had the elevated calcium for an unknown length of time. She has constitutional symptoms of fatigue, depression, irritability, muscle weakness and frequent urination. She has no history of kidney stones. She has not had bony fractures. A DEXA scan shows not done yet. There is no family history of parathyroid disease. Lee Ann has no prior neck surgery.. She is not on thyroid medications. Past Medical History Diagnosis Date ??? Esophageal reflux ??? Depressive disorder, not elsewhere classified ??? Hiatal hernia 2010 ??? 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 C nonspecific procedure s/p x [...] - 2009 left ankle surgery - [facility] Allergies Allergen Reactions ??? Cephalosporins keflex ??? Clindamycin Diarrhea ??? Erythromycin ??? Ethanol zoloft ??? Penicillins ??? Risperidone ??? Sympathomimetics resperidol ??? Tetracyclines ??? Wellbutrin (Bupropion Hydrobromide) Review of Systems: pneumonia Physical Exam: There were no vitals taken for this visit. Well developed, well nourished female in no apparent distress. HEENT: Normocephalic, atraumatic. Neck: Short, thick and suitable neck creases seen. Range of motion is normal. No neck masses. Thyroid: Palpably normal. Lymph: No cervical adenopathy. Respirations: Unlabored. Neurologic: Alert. Speech is clear. Moves all extremities with good strength. Skin: Warm, dry and no rash. Psychologic: Alert, appropriate range of emotions. Labs: Calcium-11.0 [id number] Imaging: Sestimibi Scan with SPECT-Ordered Ultrasound- normal Assessment and Plan: Lee Ann has primary hyperparathyroidism and is a candidate for surgery because of symptoms. We discussed the possibility of single adenoma (85%) vs dual adenoma or hyperplasia (15%). If the imaging studies suggest that there is a good probability of a single adenoma, I would recommend a minimally invasive neck exploration with the sestimibi injection to minimize the operative incision and the rapid PTH assay to assess the completeness of the procedure. Lee Ann is aware of the risks to the recurrent laryngeal nerve and the risk of hypocalcemia, particularly with treatment of parathyroid hyperplasia. She is also aware of the 1-2 % risk of failure to cure. She is anxious to proceed with surgery in the next few weeks. Vonnie Murphy MD Please route to: Primary Care Provider (PCP). 30 minutes spent with the patient, over 50% as counseling. . HPI ROS Physical Exam documented in this encounter Plan of Treatment Not on filedocumented as of this encounter Visit Diagnoses Diagnosis Primary hyperparathyroidism (H) - Primar y Primary hyperparathyroidism documented in this encounter Care Teams Gum Sprayer Relationship Specialty Start Date End Date Julia White MD PCP - General Family Practice 12/18/13 11/01/14 [address] [place] [address] documented as of this encounter
--- OUTSIDE RECORDS SUMMARY | 2022-07-19 22:59 | XMS_ITS | Encounter Summary ---
:1940 Author Organization [place] Address [facility] [place] [address] Care Team Providers Name Role Phone Julia White MD Primary Care Provider Reason for Visit Reason Onset Date Comments Surgical Followup 02/09/2014 nursing Encounter Details Date Type Department Care Team Description 02/09/2014 Telephone [facility] Vonnie Murphy, Surg ical Followup Surgery Clinic (nursing) [place] [address] [facility] [address] [place] [address] [place], [place] [phone] (Wo rk) [address] [phone] Social History Tobacco Use Types Packs/Day Years Used Date Smoking Tobacco: Never Smokeless Tobacco: Never Alcohol Use Standard Drinks/Week Comments No 0 (1 standard drink = 0.6 oz pure alcoho l) Sex Assigned at Date Recorded Not on file documented as of this encounter Miscellaneous Notes Telephone Encounter - Magalis Parrish - 02/09/2014 10:08 AM CDT S/P: Excision of right superior and left superior (mediastinal) parathyroid adenoma, Bilateral neck exploration. 01/26/14 Patient called regarding appointment this 02/11/14 which was changed to noon. Wanting to make sure 1. Lab appointment didn't need to be changed. 2. Correct Calcium lab has been ordered. Patient was not aware of where she should go for lab draw. Also reports, cellulitis from IV which she is being treated with antibiotics for. Multiple concerns regarding hospital stay, I offered an appointment today, also to speak with officeadministrator. Patient prefers to discuss with Dr. Murphy at office visit. Plan: Will talk with Dr. Murphy, to make sure, calcium labs are correct. Magalis Parrish RN documented in this encounter Plan of Treatment Not on filedocumented as of this encounter Visit Diagnoses Not on filedocumented in this encounter Care Teams Concrete Form Setter Relationship Specialty Start Date End Date Julia White MD PCP - General Family Practice 12/18/13 11/01/14 [address] [place] [address] documented as of this encounter
--- OUTSIDE RECORDS SUMMARY | 2022-07-19 22:59 | XMS_ITS | Encounter Summary ---
:1940 Author Organization [place] Address [address] [place] [address] Care Team Providers Name Role Phone Julia White MD Primary Care Provider Reason for Visit Reason Comments Wrist Pain Encounter Details Date Type Department Care Team Description 04/07/2014 Emergency [facility] Emergency Dep dacia Persaud MD deposition disease of [address] [facility] wrist (Primary Dx) [place], [place] [address] [phone] [place], [place] [address] (Wo rk) Social History Tobacco Use Types Packs/Day Years Used Date Smoking Tobacco: Never Smokeless Tobacco: Never Alcohol Use Standard Drinks/Week Comments No 0 (1 standard drink = 0.6 oz pure alcoho l) Sex Assigned at Date Recorded Not on file documented as of this encounter Last Filed Vital Signs Vital Sign Reading Time Taken Comments Blood Pressure 143/98 04/07/2014 7:23 PM CDT Pulse 91 04/07/2014 7:23 PM CDT Temperature 36.9 ??C (98.4 ??F) 04/07/2014 6:25 PM CDT Respiratory Rate 20 04/07/2014 7:23 PM CDT Oxygen Saturation 98% 04/07/2014 6:25 PM CDT Inhaled Oxygen Concentration - - Weight - - Height - - Body Mass Index - - documented in this encounter Discharge Instructions Discharge InstructionsLaredo RanchettesLeo stephenson MD - 04/07/2014 7:24 PM CDT Please see the attached information from the resource, UpToDate, for further information. Please return immediately for worse pain, swelling, or any other concerns. documented in this encounter Medications at Time of Discharge Medication Sig Dispensed Refills Start Date End Date predniSONE (DELTASONE) 20 Take 2 tablets (40 10 tablet 0 04/12/2014 MG tablet mg) by mouth daily for 5 days Take two tablets (= 40mg) each day for 5 (five) days calcium carbonate (OS-HECTOR Take 2 tablets 90 tablet 0 201304/28/2014 500 MG [place]. [place]) 500 MG (1,000 mg) by tabletIndications: [...] 05/2604/28/2014 Edema ordered: compression stockings 15-20 mmhg [id number] Zzzquil, take 1 0 capsule daily as needed Sertraline HCl (ZOLOFT PO) Take 25 mg by 0 04/28/2014 mouth daily Sertraline HCl (ZOLOFT PO) Take 25 mg by 0 01/22/2015 mouth daily as needed (if having a bad day can take one extra tablet) documented as of this encounter ED Notes Oumou Casper RN - 04/07/2014 6:23 PM CDT Left wrist pain started two days ago, no known injury. Today she has noted increased pain, swelling,and redness in this area. No known injury, no insect bites. Leo Levine MD - 04/07/2014 6:22 PM CDT History Chief Complaint: Wrist Pain HPI Lee Ann Herndon is a 73 year old female, right hand dominant, who presents with wrist pain. The patient reports several days of atraumatic left wrist pain. She continues that today she wore an elastic support, and upon removal this evening, she noted swelling and redness over the distal ulna which was never previously present. Here, she rates her pain as 7/10, with range of motion or palpation, none with axial loading or lying still. She denies history of similar. She denies fever or chills. She denies weakness, numbness, or tingling in the distal LUE. Allergies: Cephalosporins Clindamycin Erythromycin Lisinopril Penicillins Sympathomimetics Tetracyclines Medications: Os-hector Calcitrate Zoloft Ibuprofen [place] Past Medical History: GERD Depression Hiatal hernia Hypertension General osteoarthrosis Past Surgical History: Appendectomy D & C Hernia repair Coloscopy Ankle repair Bilateral knee replacement Parathyroidectomy Family / Social History: Family history: breast cancer (mother, sister) Marital Status: [2] Social History: never smoker, no alcohol use, here with spouse Review of Systems Constitutional: Negative for fever and chills. Musculoskeletal: Positive left wrist pain, as in HPI Skin: Negative for wound. Left wrist redness and swelling, as in HPI Neurological: Negative for weakness and numbness. All other systems reviewed and are negative. Physical Exam First Vitals: BP 213/128 Pulse 104 Temp(Src) 98.4 ??F (36.9 ??C) (Oral) Resp 22 SpO2 98% Physical Exam Constitutional: Alert, attentive Cardiovascular: 2+ radial and ulnar pulses to the bilateral upper extremities Neurological: 5/5 strength to the radian, ulnar and median motor distributions; sensation intact to light touch to the radian, ulnar and median distributions MSK: No effusion to the joint, no pain with axial loading, and no bony tenderness; Mild warmth to a patch of erythema that overlies the distal ulnar, dorsal aspect; mild tenderness to the volar aspect of the ulna, no other tenderness; soft tissue swelling to the lateral ulna Skin: Skin is warm and dry. Emergency Department Course Imaging: Radiographic findings were communicated with the patient who voiced understanding of the findings. XR left wrist: IMPRESSION: No acute fractures or dislocations. Anatomic alignment. Some faint radiodensities along the ulnar side of the radiocarpal joint suggested and could represent chondrocalcinosis in the setting of crystalline arthropathy such as calcium pyrophosphate deposition disease. There is some soft tissue swelling about the carpus. Preliminary reading per radiology. Emergency Department Course: I examined the patient. Plan of care discussed. The patient agrees with this plan. 1909 - XR left wrist obtained. Results as above. Findings discussed with the patient. Patient was placed in a Velcro wrist splint. The patient will be discharged home to follow up with primary care doctor per discharge instructions. Indications for return to the ED were discussed and the patient understands. All questions were answered prior to discharge. Discharge orders: Prednisone 20 mg tablet, two tablets daily for 5 days Impression & Plan Medical Decision Making: Lee Ann Herndon is a 73 year old female who presents for evaluation of acute left wrist pain, localizing over the distal ulna. There is some erythema to the dorsal aspect of the distal ulna, lateralsoft tissue swelling and volar tenderness. Differential includes possible cellulitis, although the skin is not tender, inflammatory or septic arthritis. In absence of pain with axial loading, fever, etc, septic arthritis seems unlikely. Incidentally, calcium deposition is seen on xray consistent with pseudogout and this is most consistent with this subacute course. She declines Colchicine and insteadwould like to trial Prednisone. She understands that aspiration would confirm CPPD and would not like to undergo this procedure at this time; given XR findings and no apparent effusion, I believe this is reasonable.This will be prescribed and she will follow up with her primary doctor, be immobilized,and recommended supportive measures. Incidentally, her BP was noted to be significantly elevated upon arrival. This was in the absence ofsignificant pain or any symptoms of hypertensive emergency. On recheck, without intervention, the BPis much improved and tachycardia resolved. Diagnosis: ICD-9-CM 1. 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 Emergency Department I, Gavino Vanegas, am serving as a scribe at 6:23 PM on 04/07/2014 to document services personally performed by Leo Levine MD, based on my observations and the provider's statements to me. Leo Levine MD 04/07/14 194 documented in this encounter Plan of Treatment Not on filedocumented as of this encounter Procedures Procedure Name Priority Date/Time Associated Diagnosis Comme nts XR WRIST LEFT G/E 3 STAT 04/07/2014 7:03 PM Re sults for this VIEWS CDT procedure are i n the results section. documented in this encounter Results Wrist XR, G/E 3 views, left (04/07/2014 7:03 PM CDT) Anatomical Region Laterality Modality Left Wrist Left Computed Radiography Specimen (Source) Anatomical Location Collection Method / Collectio n Time Received Time / Laterality Volume Impressions 04/07/2014 8:11 PM CDT IMPRESSION: No acute fractures or dislocations. Anatomic alignment. Some faint radiodensities along the ulna r side of the radiocarpal joint suggested and could represent lurdes drocalcinosis in the setting of crystalline arthropathy such as calci um pyrophosphate deposition disease. There is some soft tissue swell ing about the carpus. LEONOR LORA MD Narrative 04/07/2014 8:11 PM CDT LEFT WRIST THREE OR MORE VIEWS 04/07/2014 7:03 PM HISTORY: Pain. COMPARISON: None. Procedure Note Leonor Lora MD - 04/07/2014Forma tting of this note might be different from the original. LEFT WRIST THREE OR MORE VIEWS 04/07/2014 7:03 PM HISTORY: Pain. COMPARISON: None. IMPRESSION IMPRESSION: No acute fractures or disloc ations. Anatomic alignment. Some faint radiodensities along the ulna r side of the radiocarpal joint suggested and could represent lurdes drocalcinosis in the setting of crystalline arthropathy such as calci um pyrophosphate deposition disease. There is some soft tissue swell ing about the carpus. LEONOR LORA MD Leo Levine MD IMG DIAGNOSTIC IMAGING ORDER BERNARDO documented in this encounter Visit Diagnoses Diagnosis Calcium pyrophosphate deposition disease of wrist - Primary Other disorder of calcium metabolism documented in this encounter Administered Medications Inactive Administered Medications - up to 3 most recent administrations Medication Order MAR Action Action Date Dose Rate Site predniSONE (DELTASONE) tablet 60 mg Given 04/07/2014 7:41 PM CDT 60 mg 60 mg, Oral, ONCE, On Sun04/07/14 at 1936, For 1 dose documented in this encounter Active and Recently Administered Medications Times are shown in CDT. Scheduled Medication Order 04/05/2014 04/06/2014 04/07/2014 predniSONE (DELTASONE) tablet 60 mg (COMPLETED) 194 (Given - Provider: Oumou Casper RN) 60 mg, Oral, ONCE, Sun04/07/14 at 1936, For 1 dose documented in this encounter Care Teams Farm Operator Relationship Specialty Start Date End Date Julia White MD PCP - General Family Practice 12/18/13 11/01/14 [address] [place] [address] documented as of this encounter
--- OUTSIDE RECORDS SUMMARY | 2022-07-19 22:59 | XMS_ITS | Encounter Summary ---
:1940 Author Organization [place] Address [facility] [place] [address] Care Team Providers Name Role Phone Julia White MD Primary Care Provider Reason for Visit Reason Onset Date Comments ER F/U 04/08/2014 ER [facility] PYROPHOSP HATE DEPOSITION DISEASE OF WRIST 04/07/14 Encounter Details Date Type Department Care Team Description 04/08/2014 Telephone [facility] Julia White, ER F/U (ER [facility] [place] MD PYROPHOSPHATE DEPOSITION [address] [facility] [id number] [place] [address] AVE DISEASE OF WRIST 04/07/14) [place] [address] [phone] Social History Tobacco Use Types Packs/Day Years Used Date Smoking Tobacco: Never Smokeless Tobacco: Never Alcohol Use Standard Drinks/Week Comments No 0 (1 standard drink = 0.6 oz pure alcoho l) Sex Assigned at Date Recorded Not on file documented as of this encounter Miscellaneous Notes Telephone Encounter - Michelle William RN - 04/14/2014 11:26 AM CDT Care co-ordination called. Michelle William RN Telephone Encounter - Olivia Ventura - 04/08/2014 10:11 AM CDT Please call patient for ER follow up. Olivia Ventura Ibm [employer] Commerce Consultant documented in this encounter Plan of Treatment Not on filedocumented as of this encounter Visit Diagnoses Not on filedocumented in this encounter Care Teams Line Runner Relationship Specialty Start Date End Date Julia White MD PCP - General Family Practice 12/18/13 11/01/14 [address] [place] [address] documented as of this encounter
--- OUTSIDE RECORDS SUMMARY | 2022-07-19 22:59 | XMS_ITS | Encounter Summary ---
:1940 Author Organization [place] Address [facility] [place] [address] Care Team Providers Name Role Phone Julia White MD Primary Care Provider Reason for Visit Reason Onset Date Comments Patient Request 02/09/2014 telephone call from provider Encounter Details Date Type Department Care Team Description 02/09/2014 Telephone [facility] Julia White MD Patient Request Clinic [address] (telephone call from [address] [place] [address] provider ) [place], [place] [phone] Social History Tobacco Use Types Packs/Day Years Used Date Smoking Tobacco: Never Smokeless Tobacco: Never Alcohol Use Standard Drinks/Week Comments No 0 (1 standard drink = 0.6 oz pure alcoho l) Sex Assigned at Date Recorded Not on file documented as of this encounter Miscellaneous Notes Telephone Encounter - Eduardo Ivey RN - 02/09/2014 1:57 PM CDT Lee Ann [phone]. Lee Ann calls in response to results call from [facility] earlier today. She is quite upset that a prescription was sent to her pharmacy before she was informed of the results and plan. In the future, she wants to be a part of her treatment plan.prior to orders and expects a telephone call from the doctor. She reports had an adverse reaction to Vitamin D 50,000 IU in the past and cannot tolerate more thanVit D 1000 IU daily. Eduardo Ivey, RN documented in this encounter Plan of Treatment Not on filedocumented as of this encounter Visit Diagnoses Not on filedocumented in this encounter Care Teams Legal Billing Clerk Relationship Specialty Start Date End Date Julia White MD PCP - General Family Practice 12/18/13 11/01/14 [address] [place] [address] documented as of this encounter
--- OUTSIDE RECORDS SUMMARY | 2022-07-19 22:59 | XMS_ITS | Encounter Summary ---
:1940 Author Organization [place] Address [facility] [place] [address] Care Team Providers Name Role Phone Ranjith Hughes MD Primary Care Provider Reason for Referral Consultation - Closed Specialty Diagnoses / Procedures Referred By Contact Refer red To Contact Diagnoses Hyperparathyroidism, unspecified (H) Julia White MD [facility] SUR[facility] [id number] [place] [address] [facility] [place], [place] [address] [facility] [address] [place] [address] Phone: Fax: Referral ID Status Reason Start Date Expiration Date Visits Requ ested Visits Authorized [id number] Closed 12/17/2013 06/15/2014 1 1 Encounter Details Date Type Department Care Team Description 12/17/2013 Orders Only [facility] Julia White, Hyperpa rathyroidism, unspecified (H) (Primary Dx); [facility] [place] Hypercalcemia [address] [address] [phone] Social History Tobacco Use Types Packs/Day Years Used Date Smoking Tobacco: Never Smokeless Tobacco: Never Alcohol Use Standard Drinks/Week Comments No 0 (1 standard drink = 0.6 oz pure alcoho l) Sex Assigned at Date Recorded Not on file documented as of this encounter Progress Notes Julia Figueroa MD - 12/17/2013 4:41 PM CDT . documented in this encounter Plan of Treatment Scheduled Referrals Name Type Priority Associated Diagnoses Order S chedule GENERAL SURG ADULT Referral Routine Hyperparathyroidism, O rdered: 12/17/2013 REFERRAL unspecified (H) documented as of this encounter Visit Diagnoses Diagnosis Hyperparathyroidism, unspecified (H) - P rimary Hyperparathyroidism, unspecified Hypercalcemia documented in this encounter Care Teams Traveling Inventory Associate Relationship Specialty Start Date End Date Ranjith Hughes MD PCP - General 07/11/02 12/17/13 [address] [place] [address] documented as of this encounter
--- OUTSIDE RECORDS SUMMARY | 2022-07-19 22:59 | XMS_ITS | Encounter Summary ---
:1940 Author Organization [place] Address [facility] [place] [address] Care Team Providers Name Role Phone Julia White MD Primary Care Provider Reason for Visit Reason Onset Date Comments Panel Management 03/27/2014 HTN, Depression Encounter Details Date Type Department Care Team Description 03/27/2014 Telephone [facility] Julia White MD Panel Management (HTN, [facility] [id number] [place] [address] Depression) [address] [place] [phone] Social History Tobacco Use Types Packs/Day Years Used Date Smoking Tobacco: Never Smokeless Tobacco: Never Alcohol Use Standard Drinks/Week Comments No 0 (1 standard drink = 0.6 oz pure alcoho l) Sex Assigned at Date Recorded Not on file documented as of this encounter Miscellaneous Notes Telephone Encounter - Oumou Lundy - 03/27/2014 11:46 AM CDT Panel Management Review Date of last visit with a [facility] provider: Jeffrey on 02/11/14. Date of next visit with a [facility] provider: None. Problem List Patient Active Problem List Diagnosis ??? EDEMA ??? JOINT PAIN-LOWER LEG ??? GENERAL OSTEOARTHROSIS ??? Anxiety ??? Mild Major Depression ??? CARDIOVASCULAR SCREENING; LDL GOAL LESS THAN 160 ??? GERD (GASTROESOPHAGEAL REFLUX DISEASE) ??? Obesity ??? Health Nursing Home ??? Hypertension ??? HTN, goal below 140/90 ??? Primary hyperparathyroidism ??? Hypocalcemia ??? 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 Vitamin D deficiency disease Health Maintenance List Health Maintenance Topic Date Due ??? DEXA SCAN SCREENING (SYSTEM ASSIGNED) 2007 ??? MAMMO SCREEN Q2 YR (SYSTEM ASSIGNED) 01/18/2013 ??? DEPRESSION ACTION PLAN Q1 YR (NO INBASKET) 05/26/2014 ??? PHQ-9 Q6 MONTHS (NO INBASKET) 06/10/2014 ??? INFLUENZA VACCINE (SYSTEM ASSIGNED) 07/01/2014 ??? ADVANCE DIRECTIVE PLANNING Q5 YRS (NO INBASKET) 03/20/2016 ??? COLONOSCOPY Q3 YR INBASKET MESSAGE 05/30/2016 ??? TETANUS IMMUNIZATION (SYSTEM ASSIGNED) 02/27/2018 ??? LIPID SCREEN Q5 YR FEMALE (SYSTEM ASSIGNED) 05/26/2018 ??? PNEUMOVAX ([facility] ASSIGNED) Completed For diabetic patients with hyperlipidemia, only choose diabetes. Patient has the following on her problem list: Depression / Dysthymia review PHQ-9 SCORE ([facility]) 02/14/2012 05/26/2013 12/08/2013 Total Score 2 14 0 Patient is due for: None Hypertension Review Blood pressure goal on problem list: <140/90 Last three blood pressure readings: BP Readings from Last 3 Encounters: 02/04/14 152/61 01/27/14 130/74 01/27/14 130/74 Blood pressure: Failed Composite cancer screening Chart review shows that this patient is due/due soon for the following Mammogram No results found for this basename: pap [...] Used Summary: Patient is due/failing the following: BP CHECK and MAMMOGRAM Action needed: Patient needs nurse only appointment. and schedule mammogram Type of outreach: Sent Gudog message. Questions for provider review: None Please indicate office visit, lab, MTM, or nurse appt if needed. Indicate fasting or not fasting. Lizz Lundy CMA Chart routed to Care Team . documented in this encounter Plan of Treatment Not on filedocumented as of this encounter Visit Diagnoses Not on filedocumented in this encounter Care Teams Division Controller Relationship Specialty Start Date End Date Julia White MD PCP - General Family Practice 12/18/13 11/01/14 [address] [place] [address] documented as of this encounter
--- OUTSIDE RECORDS SUMMARY | 2022-07-19 22:59 | XMS_ITS | Encounter Summary ---
:1940 Author Organization [place] Address [facility] [place] [address] Care Team Providers Name Role Phone Julia White MD Primary Care Provider Reason for Visit Reason Onset Date Comments ER F/U 01/29/2014 ER f/u 01/27/14 Not Listed Encounter Details Date Type Department Care Team Description 01/29/2014 Telephone [facility] Julia White MD ER F/U (ER f/u 01/27/[address] Not Listed) [address] [place] [phone] Social History Tobacco Use Types Packs/Day Years Used Date Smoking Tobacco: Never Smokeless Tobacco: Never Alcohol Use Standard Drinks/Week Comments No 0 (1 standard drink = 0.6 oz pure alcoho l) Sex Assigned at Date Recorded Not on file documented as of this encounter Miscellaneous Notes Telephone Encounter - Michelle William RN - 01/30/2014 1:22 PM CDT Electrician Wiring involved. Michelle William RN Telephone Encounter - Senia Dougherty - 01/29/2014 1:50 PM CDT Please call patient for ER f/u 01/27/14 Not Listed. Senia Dougherty. Pump Tender. documented in this encounter Plan of Treatment Not on filedocumented as of this encounter Visit Diagnoses Not on filedocumented in this encounter Care Teams Engineer Booster And Exhauster Relationship Specialty Start Date End Date Julia White MD PCP - General Family Practice 12/18/13 11/01/14 [address] [place] [address] documented as of this encounter
--- OUTSIDE RECORDS SUMMARY | 2022-07-19 22:59 | XMS_ITS | Encounter Summary ---
:1940 Author Organization [facility] Address [address] [place] [address]. [place] [address] Care Team Providers Name Role Phone Julia White MD Primary Care Provider Reason for Visit Reason Comments Pre-Op Exam Encounter Details Date Type Department Care Team Description 01/19/2014 Office Visit [facility] Juan Daniel Arechiga Preop g [facility] physical [facility] [place] exam (Primary Dx) [id number] [place] [phone] [id number] Social History Tobacco Use Types Packs/Day Years Used Date Smoking Tobacco: Never Smokeless Tobacco: Never Alcohol Use Standard Drinks/Week Comments No 0 (1 standard drink = 0.6 oz pure alcoho l) Sex Assigned at Date Recorded Not on file documented as of this encounter Last Filed Vital Signs Vital Sign Reading Time Taken Comments Blood Pressure 152/96 01/19/2014 12:37 PM CDT Pulse 88 01/19/2014 12:37 PM CDT Temperature 37.1 ??C (98.8 ??F) 01/19/2014 12:37 PM CDT Respiratory Rate 14 01/19/2014 12:37 PM CDT Oxygen Saturation - - Inhaled Oxygen Concentration - - Weight - - Height - - Body Mass Index - - documented in this encounter Progress Notes Juan Daniel Arechiga MD - 01/19/2014 12:29 PM CDT PRE-OP EVALUATION: Today's date: 01/19/2014 (: 1940.) Lee Ann Herndon presents for pre-operative evaluation assessment as requested by Dr. Vonnie Murphy. He requires evaluation and anesthesia risk assessment prior to undergoing surgery/procedure for treatment of parathyroid . Proposed procedure: Neck Expoloration, Exicison Parathyroid Adenoma, Pre Operative Sestimibi Injection, Rapid PTH Assay Date of Surgery/ Procedure: 01/26/2014 Time of Surgery/ Procedure: 12.30 pm Hospital/Surgical Facility: [facility] Primary Physician: Henry Dumont MD Type of [...] 2 times daily 180 tablet 3 ??? [id number] Zquil, take 1 capsule daily ??? ORDER [...] Social History ??? Marital Status: Spouse Name: Muldraugh Number of Children: 5 ??? Years of [...] cardiovascular risks for perioperative complications such as (OK, PE, VFib and 3?? AV Block): No [...] evaluation report is provided to requesting physician. [facility] Preop Guidelines 2013 documented in this encounter Nursing Notes Mary Reyes CMA - 01/19/2014 12:41 PM CDT Chief Complaint Patient presents with ??? Pre-Op Exam Initial BP 152/96 Pulse 88 Temp(Src) 98.8 ??F (37.1 ??C) (Oral) Resp 14 Ht Wt Cannot calculate BMI with a height equal to zero. BP completed using cuff size: large RA Health Maintenance reviewed. Mary Reyes MA documented in this encounter Plan of Treatment Not on filedocumented as of this encounter Procedures Procedure Name Priority Date/Time Associated Comments Diagnosis HEMOGLOBIN Routine 01/19/2014 1:41 PM Preop general Results for this CDT physical exam procedure are in the results section. EKG 12-LEAD COMPLETE Routine 01/19/2014 Preop general Result s for this W/READ - CLINICS physical exam procedure are in the results section. documented in this encounter Results Hemoglobin (01/19/2014 1:41 PM CDT) P athologist Signature Hemoglobin 14.0 11.7 - 15.7 [place] g/dL [facility] Specimen Anatomical Collection Method Collection Time Receive d Time (Source) Location / / Volume Laterality Blood specimen 01/19/2014 1:41 PM 014 1:42 (specimen) CDT PM CDT Juan Daniel Arechiga MD LAB - BLOOD ORDERABLES Performing Organization Address City/State/ZIP Code Phon e Number [facility] [address] [place] [address] EKG 12-lead complete w/read - Clinics (01/19/2014) Narrative This result has an attachment that is no t available. Juan Daniel Arechiga MD ECG ORDERABLES documented in this encounter Visit Diagnoses Diagnosis Preop general physical exam - Primary Other specified pre-operative examinatio n documented in this encounter Care Teams Consumer Loan Officer Relationship Specialty Start Date End Date Julia White MD PCP - General Family Practice 12/18/13 11/01/14 [address] [place] [address] documented as of this encounter
--- OUTSIDE RECORDS SUMMARY | 2022-07-19 22:59 | XMS_ITS | Encounter Summary ---
:1940 Author Organization [facility] Address [facility] [place] [address] Care Team Providers Name Role Phone Julia White MD Primary Care Provider Reason for Visit Reason Comments [facility] Care Team Clinic Care Coordination - Follow-up Encounter Details Date Type Department Care Team Description 01/28/2014 Care Coordination [facility] Julia White C ASE ENGLISH COMPOSITION TEACHER - [facility]; Care Team; MANAGEMENT DEPT [id number] [facility] [address] [place] [address], Coordination - [place] [address] [place] [address] Follow-up Esther TUSHAR [phone] Social History Tobacco Use Types Packs/Day Years Used Date Smoking Tobacco: Never Smokeless Tobacco: Never Alcohol Use Standard Drinks/Week Comments No 0 (1 standard drink = 0.6 oz pure alcoho l) Sex Assigned at Date Recorded Not on file documented as of this encounter Progress Notes Nithya Tom RN - 02/11/2014 12:42 PM CDT Clinic Care Coordination follow up assessment: Gaps identified on last contact: none Plan from last contact: F/u with PCP/CM to f/u is needed Progress: no f/u needed d/t seen in clinic today. Questions/concerns addressed by PCP New Gaps Identified: none New/Continuing plan: No outreach needed at this time Nithya Tom RN-BSN, LEWIS, FPA/FMG [facility] Hvac Service Manager [phone] Nithya Tom RN - 01/28/2014 1:32 PM CDT Care Coordination Initial Assessment Outreach to patient. Spoke with spouse. Introduced self as Carpenter Supervisor and explained Care Coordination role. States pt is sleeping. States she is doing well. States she has a little upset stomach and REAL earlier, now doing ok. No concerns. Advised to have her make f/u with PCP within a week. PCP: Julia Figueroa Referral Source: ED/IP List Utilization: No concerns at this time Health Maintenance Reviewed: NA Current Medical Health Concerns: Parathyroidectomy Patient/Caregiver Understanding: not addressed Medication Management: no concerns Functional Status: Independent with all ADL/IADL's Current Behavioral Health Concerns: Anxiety and mild major depression per chart review Patient/Caregiver Understanding: N/a Psychosocial: Living Situation: With spouse Gaps: None identified Resources Given: None Plan: Pt to f/u with PCP Will review chart in two weeks and f/u with pt if necessary Nithya Tom RN-BSN, LEWIS, FPA/FMG [facility] Hvac Service Manager [phone] documented in this encounter Plan of Treatment Not on filedocumented as of this encounter Visit Diagnoses Not on filedocumented in this encounter Care Teams Memorial Marker Designer Relationship Specialty Start Date End Date Julia White MD PCP - General Family Practice 12/18/13 11/01/14 [address] [place] [address] documented as of this encounter
--- OUTSIDE RECORDS SUMMARY | 2022-07-19 22:59 | XMS_ITS | Encounter Summary ---
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) Hypocalcemia 2 Medical Surgical [address] [place], [place] [address] Phone: Fax: Referral ID Status Reason Start Date Expiration Date Visits Requ ested Visits Authorized Closed 02/03/2014 08/02/2014 Encounter Details Date Type Department Care Team Description 02/03/2014 - Emergency [facility] Mayra Buck MD [facility] [address] [place], [place] [id number] Hypocalcemia (Primary Dx); 02/04/2014 [place] [address] Medical Ishaan Miranda MD [address] [place], [place] [id number] Tetany due to low calcium from parathyro id disease (H) Surgical [address] [place] [address] Social History Tobacco Use Types Packs/Day Years Used Date Smoking Tobacco: Never Smokeless Tobacco: Never Alcohol Use Standard Drinks/Week Comments No 0 (1 standard drink = 0.6 oz pure alcoho l) Sex Assigned at Date Recorded Not on file documented as of this encounter Last Filed Vital Signs Vital Sign Reading Time Taken Comments Blood Pressure 152/61 02/04/2014 7:00 AM CDT Pulse 82 02/03/2014 2:02 AM CDT Temperature 36.8 ??C (98.3 ??F) 02/04/2014 7:00 AM CDT Respiratory Rate 16 02/04/2014 7:00 AM CDT Oxygen Saturation 95% 02/04/2014 7:00 AM CDT Inhaled Oxygen Concentration - - Weight - - Height - - Body Mass Index - - documented in this encounter Discharge Summaries Jhon Oconnor MD - 02/04/2014 5:19 PM CDT PRIMARY CARE PHYSICIAN: Dr. Julia White. DISCHARGE DIAGNOSES: 1. Acute symptomatic hypercalcemia. 2. Surgery by Dr. Soler, partial parathyroidectomy on 01/26/2014. 3. Neck pain and headache as well. DISCHARGE DISPOSITION: Home. DISCHARGE MEDICATIONS: The patient's medications include: 1. Calcium citrate 500 mg tablets with 500 elemental calcium, and she was increased from twice a dayto 3 times a day, 2 tablets. 2. Vicodin 5/325 one to two tablets every 4 hours as needed for pain. 3. Ibuprofen 200 mg as needed for moderate pain as well. 4. Prior to arrival medication also includes Zoloft 25 mg p.o. daily. DISCHARGE INSTRUCTIONS: DIET: Regular as tolerated. ACTIVITIES: As tolerated. FOLLOWUP: Follow up with her primary physician, Dr. Julia Whtie at [facility]. CONDITION ON DISCHARGE: The patient is comfortable and asymptomatic. She was seen by Dr. Soler the day before discharge and recommendation is to check with her in the next 1 week if she has any symptoms. BRIEF HOSPITAL SUMMARY: Lee Ann Herndon is a 73-year-old female who had a partial parathyroidectomy on 01/26/2014, who came in with symptoms of nausea, vomiting and muscle spasm in the neck and theback as well. This was initially thought to be related to severe hypocalcemia and tetany; however, she significantly improved with calcium replacement and she did not have any severe symptoms of hypocalcemia. I spoke detailed plan of care with Dr. Soler who did surgery on 01/26/2014. The patient's calcium was normalized and the patient was discharged on increased dose of her calcium citrate as an outpatient to be followed by Dr. Soler as an outpatient as well with a blood draw. The patientotherwise was stable and had no other symptoms on the day of discharge. She was aware of the plan ofcare and she will be seen by her primary provider as well as Dr. Soler. Of note, the patient required IV calcium hospital in the emergency room and the PTH was determined as well as vitamin D level, which is pending at time of dictation. This will be followed by her primary provider as well as Dr. Soler. The patient and family understood the plan of care and the patient was discharged in stable condition. JHON OCONNOR MD MT: #[id number] Name: LEE ANN HERNDON Account: [id number] : 1940 Admit Date: Discharge Date: 02/04/2014 Document: [id number] cc: Julia Soler MD documented in this encounter Discharge Instructions Discharge Sarah Pollard PA-C - 02/04/2014 11:36 AM CDT HOME CARE FOLLOWING PARATHYROID SURGERY Annia Andino E. Gavin Special instructions for Lee Ann Herndon: --Continue Calcium supplement: Calcium Taper Schedule: Take one tablet every 6 hours until symptoms are gone, then 8 hours for one week, then decrease to one tablet every 12 hours for one week, then decrease to one tablet every 12 hours for one week, then decrease to one tablet daily until gone. If your symptoms return, try taking another Calcium tablet. If that doesn't help, call our clinic. --Stop at [facility] for a blood calcium level on 02/11 before your follow-up appointment with Dr. Soler. Follow up with [place] in 4-6 weeks. RESULTS: Call the office regarding your [...] Walk around frequently. You may consider an [id number] stool-softener. Your Pharmacist can assist you with [...] to discuss with the nurse or physician captain assistant. # There is a surgeon [employer] WORK[employer] on weekday evenings and over the weekend [...] tablets 90 tablet 0 201304/28/2014 500 MG [place]. 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 F/u Dr. Soler next week, Calcium blood draw prior to appt. Interval History: Feels much better. No paresthesias. No c/o. Wants to go home. Tolerating diet, voiding ok. Physical Exam: Blood pressure 152/61, pulse 82, temperature 98.3 ??F (36.8 ??C), temperature source Oral, resp. rate 16, SpO2 95 %. I/O last 3 completed shifts: In: 2259 [P.O.:680; I.V.:1579] Out: - Neck: Incision cdi Chvosteks negative Data: Recent Labs Lab Test 02/03/14 0105 01/19/14 1341 02/11/12 1955 01/12/11 0845 HGB 13.8 14.0 12.8 < > 13.8 WBC 8.1 -- 6.9 -- 8.2 < > = values in this interval not displayed. Recent Labs Lab 02/04/14 0615 02/03/14 0840 02/03/14 0105 NA 144 142 141 POTASSIUM 4.6 4.5 4.0 CHLORIDE 110* 106 106 CO2 26 26 22 ANIONGAP 7 9 13 GLC 94 103* 101* BUN 13 13 16 CR 0.94 0.91 0.90 GFRESTIMATED 59* 61 62 GFRESTBLACK 71 74 75 HAVEN 7.8* 8.7 8.2* MAG -- -- 2.0 Recent labs and studies reviewed. Sarah Agosto PA-C Vonnie Soler MD - 02/03/2014 1:50 PM CDT PTH is 104, slightly high is appropriate with low calcium level. The remaining parathyroid glands are functioning. Expect will tolerate oral calcium replacement and taper of calcium without the need for Rocaltrol. Vitamin D level is still pending. Vonnie Soler MD Jhon Oconnor MD - 02/03/2014 1:50 PM CDT [facility] Hospitalist Progress Note Name: Lee Ann Herndon Date of : 1940 Age: [age] year old Date of admission: 02/03/2014 Primary care provider: Julia Figueroa Patient is a 73-year-old female who had partial parathyroidectomy 8 days ago. She presents now with symptomatic hypocalcemia. Past Medical History: Past Medical History Diagnosis Date ??? Esophageal reflux ??? Depressive disorder, not elsewhere classified ??? Hiatal hernia 2010 ??? 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 Hypertension ??? Arthritis knees ??? Thyroid disease Interval History: Patient was seen and examined Medical records reviewed including overnight events and nursing notes and concerns. doing well; no cp, sob, n/v/d, or abd pain. Patient is better today. She was seen by surgical team and she remained stable. No fevers chills or nausea or vomiting. Physical Exam: All vitals have been reviewed BP Readings from Last 1 Encounters: 02/03/14 157/85 Pulse Readings from Last 1 Encounters: 02/03/14 82 Resp Readings from Last 1 Encounters: 02/03/14 20 Temp Readings from Last 1 Encounters: 02/03/14 100.7 ??F (38.2 ??C) Oral SpO2 Readings from Last 1 Encounters: 02/03/14 94% Wt Readings from Last 1 Encounters: 01/26/14 118 kg (260 lb 2.3 oz) Ht Readings from Last 1 Encounters: 01/26/14 1.6 m (5' 2.99) GENERAL: Pleasant and cooperative. No acute distress. EYES: Pupils equal and round. No scleral erythema or icterus. ENT: External ears are normal without deformity. Posterior oropharynx is without erythem, swelling, or exudate. NECK: Supple. No masses or swelling. No tenderness. Thyroid is normal without mass or tenderness. CHEST: Clear to auscultation. Normal breath sounds. No retractions. CV: Regular rate and rhythm. No JVD. Pulses normal. ABDOMEN: Bowel sounds present. No tenderness. No masses or hernia. EXTREMETIES: No clubbing, cyanosis, or ischemia. SKIN: Warm and dry to touch. No wounds or rashes. NEUROLOGIC: Strength and sensation are normal. Deep tendon reflexes are normal. Cranial nerves are normal. Medications: I have reviewed this patient's current medications Data: No intake or output data in the 24 hours ending 05/06/14 1350 Wt Readings from Last 5 Encounters: 01/26/14 118 kg (260 lb 2.3 oz) 01/26/14 118 kg (260 lb 2.3 oz) 12/31/13 105.688 kg (233 lb) 12/15/13 105.688 kg (233 lb) 05/26/13 105.733 kg (233 lb 1.6 oz) All laboratory and imaging data in the past 24 hours reviewed Recent Labs Lab 02/03/14 0105 WBC 8.1 HGB 13.8 HCT 43.3 MCV 96 PLT 135* No results found for this basename: CULT, in the last 168 hours Recent Labs Lab 02/03/14 0840 02/03/14 0105 NA 142 141 POTASSIUM 4.5 4.0 CHLORIDE 106 106 CO2 26 22 ANIONGAP 9 13 GLC 103* 101* BUN 13 16 CR 0.91 0.90 GFRESTIMATED 61 62 GFRESTBLACK 74 75 HAVEN 8.7 8.2* MAG -- 2.0 Recent Labs Lab 02/03/14 0840 02/03/14 0105 CR 0.91 0.90 Recent Labs Lab 02/03/14 0840 02/03/14 0105 GLC 103* 101* Recent Labs Lab 02/03/14 0105 HGB 13.8 Recent Labs Lab 02/03/14 0105 INR 1.00 Recent Labs Lab 02/03/14 0105 PLT 135* Recent Labs Lab 02/03/14 0105 TROPI <0.012 Recent Results (from the past 48 hour(s)) XR CHEST 2 VW Narrative: XR CHEST 2 VW 02/03/2014 6:57 AM HISTORY: SOB, Impression: IMPRESSION: Cardiomegaly. Chest otherwise negative. JAZZY ROWLAND MD Assessment and Plan: Patient is a 73-year-old female who had partial parathyroidectomy 8 days ago. She presents now withsymptomatic hypocalcemia. 1. Symptomatic hypocalcemia This is due to recent partial parathyroidectomy and non-tolerance of calcium carbonate. Patient is stable today but continues to have back spasm which is improving. Patient was seen and examined by surgery and input is appreciated. Repeat ionized calcium is normal today. Hold on IV calcium and continue oral placement. Dr. Soler is following. 2. Postop day 8 after partial parathyroidectomy on January 26. -Surgery following. 3. Gastroesophageal reflux disease and hiatal hernia. Currently not on medications. 4. Depression. Continue Zoloft. 5. Hypertension. Currently not on medication. 6. Disposition-discharge in the morning documented in this encounter H&P Notes Ishaan Miranda MD - 02/03/2014 7:16 AM CDT [facility] History and Physical Hospitalist Service Ishaan Miranda MD, MD LeeA nn Herndon Date of : 1940 Age: [age] year old Date of Admission: 02/03/2014 Assessment and Plan: Patient is a 73-year-old female who had partial parathyroidectomy 7 days ago. She presents now with symptomatic hypocalcemia. 1. Symptomatic hypocalcemia. This is due to recent partial parathyroidectomy and non-tolerance of calcium carbonate. She will be admitted under observation status. She'll be hydrated. Antiemetic medications will be available. She'll get one more dose of calcium gluconate. I will try calcium citrate instead of calcium carbonate. I will see if Dr. Soler can see this patient in follow- up. She may need calcitriol supplement as well. 2. Postop day 7 after partial parathyroidectomy on January 26. 3. Gastroesophageal reflux disease and hiatal hernia. Currently not on medications. 4. Depression. Continue Zoloft. 5. Hypertension. Currently not on medication. 6. Disposition. Admitted as an observation patient Code Status: Full Code Primary Care Physician: Julia Figueroa [phone] Chief Complaint: Nausea, vomiting, muscle spasms in neck and back. History is obtained from Lee Ann and her as well as medical record History of Present Illness: Lee Ann Herndon is a 73 year old female who presented with 3 days of progressive muscle spasms in her neck and back. She had partial parathyroidectomy on January 26. The surgery was uncomplicated. Postoperatively, she was started on calcium supplementation with taper. Initially she tolerated this okay for the first couple of days. Possibly 4 or 5 days ago, however, she began to develop nausea and some vomiting. She denied fever,diarrhea, or infectious symptoms. She continued to take the calcium supplements for a couple of more days but then was unable to. She's been unable to take the calcium supp lements for the last 2 days. She's developed muscle spasms in her neck and back have been painful. Finally she came to the emergency department for evaluation overnight. She was found to have low ionized and total calcium. She was given calcium chloride with improvement of symptoms. Her symptoms did not, however, completely resolve. She was admitted under observation status for ongoing potassium replacement trial of calcium citrate and low of calcium carbonate. Past Medical History: Patient Active Problem List Diagnosis ??? EDEMA ??? JOINT PAIN-LOWER LEG ??? GENERAL OSTEOARTHROSIS ??? Anxiety ??? Mild Major Depression ??? CARDIOVASCULAR SCREENING; LDL GOAL LESS THAN 160 ??? GERD (GASTROESOPHAGEAL REFLUX DISEASE) ??? Obesity ??? Health Snf ??? Hypertension ??? HTN, goal below 140/90 ??? Primary hyperparathyroidism ??? Hypocalcemia ??? 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 Esophageal reflux ??? Depressive disorder, not elsewhere classified ??? Hiatal hernia 2010 ??? 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 Hypertension ??? Arthritis knees ??? Thyroid disease Past Surgical History: Past Surgical History Procedure Laterality Date ??? [...] ??? Parathyroidectomy 01/26/2014 Procedure: PARATHYROIDECTOMY; Surgeon: Vonnie Soler MD; Location: OR Home Medications: Prior to Admission medications Medication Sig Last Dose Taking? Auth Provider HYDROcodone-acetaminophen (NORCO) 5-325 MG per tablet Take 1-2 tablets by mouth every 4 hours as needed for moderate to severe pain Yes Vonnie Soler MD calcium carbonate (OS-HAVEN 500 MG [place]. [place]) 500 MG tablet Take 2 tablets (1,000 mg) by mouth every 8 hours Yes Vonnie Soler MD sertraline (ZOLOFT) 50 MG tablet Take 1 tablet (50 mg) by mouth 2 times daily Patient taking differently: daily Yes Julia Figueroa MD [id number] Zzzquil, take 1 capsule daily. Reported, Patient ORDER FOR DME Equipment being ordered: compression stockings 15-20 mmhg Ranjith Hughes MD Allergies: Allergies Allergen Reactions ??? Cephalosporins Hives keflex ??? Clindamycin Diarrhea ??? Erythromycin Nausea and Vomiting and Hives ??? Lisinopril Dizzy ??? Penicillins Hives and Itching ??? Sympathomimetics Swelling resperidol ??? Tetracyclines Hives and Itching Social History: History Substance Use Topics ??? Smoking status: Never Smoker ??? Smokeless tobacco: Never Used ??? Alcohol Use: No Family History: Family History Problem Relation Age of Onset ??? Breast CA Mother ??? Breast CA Sister Review of Systems: The 10 point Review of Systems is negative other than as noted in the HPI. Physical Exam: Blood pressure 169/80, pulse 82, temperature 100.2 ??F (37.9 ??C), temperature source Oral, resp. rate 20, SpO2 95 %. 0 lbs 0 oz GENERAL: Pleasant and cooperative. No acute distress. EYES: Pupils equal and round. No scleral erythema or icterus. ENT: External ears are normal without deformity. Posterior oropharynx is without erythem, swelling, or exudate. NECK: Supple. No masses or swelling. No tenderness. Thyroid is normal without mass or tenderness. CHEST: Clear to auscultation. Normal breath sounds. No retractions. CV: Regular rate and rhythm. No JVD. Pulses normal. ABDOMEN: Bowel sounds present. No tenderness. No masses or hernia. EXTREMETIES: No clubbing, cyanosis, or ischemia. SKIN: Warm and dry to touch. No wounds or rashes. NEUROLOGIC: Strength and sensation are normal. Deep tendon reflexes are normal. Cranial nerves are normal. Data: All new lab and imaging data was reviewed. Results for orders placed during the hospital encounter of 02/03/14 (from the past 24 hour(s)) CBC WITH PLATELETS DIFFERENTIAL Result Value Range WBC 8.1 4.0 - 11.0 10e9/L RBC Count 4.53 3.8 - 5.2 10e12/L Hemoglobin 13.8 11.7 - 15.7 g/dL Hematocrit 43.3 35.0 - 47.0 % MCV 96 78 - 100 fl MCH 30.5 26.5 - 33.0 pg MCHC 31.9 31.5 - 36.5 g/dL RDW 14.1 10.0 - 15.0 % Platelet Count 135 (*) 150 - 450 10e9/L Diff Method Automated Method % Neutrophils 58.4 % Lymphocytes 32.0 % Monocytes 6.3 % Eosinophils 3.0 % Basophils 0.1 % Immature Granulocytes 0.2 Absolute Neutrophil 4.8 1.6 - 8.3 10e9/L Absolute Lymphocytes 2.6 0.8 - 5.3 10e9/L Absolute Monoctyes 0.5 0.0 - 1.3 10e9/L Absolute Eosinophils 0.2 0.0 - 0.7 10e9/L Absolute Basophils 0.0 0.0 - 0.2 10e9/L Abs Immature Granulocytes 0.0 0 - 0.4 10e9/L INR Result Value Range INR 1.00 0.86 - 1.14 BASIC METABOLIC PANEL Result Value Range Sodium 141 133 - 144 mmol/L Potassium 4.0 3.4 - 5.3 mmol/L Chloride 106 94 - 109 mmol/L Carbon Dioxide 22 20 - 32 mmol/L Anion Gap 13 6 - 17 mmol/L Glucose 101 (*) 60 - 99 mg/dL Urea Nitrogen 16 7 - 30 mg/dL Creatinine 0.90 0.52 - 1.04 mg/dL GFR Estimate 62 >60 mL/min/1.7m2 GFR Estimate If Black 75 >60 mL/min/1.7m2 Calcium 8.2 (*) 8.5 - 10.4 mg/dL MAGNESIUM Result Value Range Magnesium 2.0 1.6 - 2.3 mg/dL CK TOTAL Result Value Range CK Total 103 30 - 225 U/L CALCIUM IONIZED Result Value Range Calcium Ionized 4.1 (*) 4.4 - 5.2 mg/dL TROPONIN I Result Value Range Troponin I ES <0.012 0.000 - 0.034 ug/L XR CHEST 2 VW Narrative: XR CHEST 2 VW 02/03/2014 6:57 AM HISTORY: SOB, Impression: IMPRESSION: Cardiomegaly. Chest otherwise negative. JAZZY ROWLAND MD documented in this encounter Consult Notes Vonnie Soler MD - 02/03/2014 9:32 AM CDT SURGICAL CONSULTATION REQUESTING PHYSICIAN: Dr. Ishaan Miranda. HISTORY OF PRESENT ILLNESS: I was asked to see Lee Ann Herndon, a 73-year-old female who is wellknown to myself. I initially met Lee Ann on 12/30/2013 for of hyperparathyroidism. She has had an elevated calcium for an unknown period of time. Her calcium was 11.0 and PTH was 583. She had sestamibi imaging, which was interpreted as negative but was suspicious for potential adenomas in each side of her neck. She had surgery done on 01/26/2014, and at that time, we removed a right superior and a large left superior (mediastinal) parathyroid adenoma. Her PTH assay which was quite high preoperativelyat 498, diminished to 36.8 at 25 minutes post-excision. She was monitored overnight and discharged to home the following day. The patient reports that she has been unable to keep her oral calcium replacement down as she would vomit it up. She started to develop symptoms of muscle cramping and facial tingling, particularly yesterday. This has been going on for about 4-5 days, although was milder at kinjal t time. She was admitted through the emergency room when she found to have a calcium of 8.2 and responded to IV calcium. This morning, she has no complaints, although feels that her lips are slightly tingling still. PHYSICAL EXAMINATION: She has a negative Chvostek's sign and normal voice. Her incision site is healing nicely, slight ecchymoses noted. I have reviewed her labs. She did have a calcium of 8.2 on admission, it is now 8.7. Her ionized calcium was 4.1, now 4.6. PTH level does not appear to be drawn, so I did add that on. ASSESSMENT: A 73-year-old female with symptomatic hypocalcemia following successful parathyroid surgery for dual adenomas. I suspect Lee Ann has had longstanding hyperparathyroidism and she may have symptoms of transient hypocalcemia which can persist 8 or more days after successful parathyroid surgery. I have added a PTH to this morning's labs as I want to confirm that the 2 remaining parathyroid glands are functioning. I would hold off on further intravenous calcium, unless the calcium is very low,so we can see if she is able to maintain on oral replacement. I would plan on replacing her at least1 gram of elemental calcium t.i.d. for the next week. I agree with the admission opinion that likelythe problem was exacerbated by her inability to keep the oral replacement down. Lastly, I agree she might need Rocaltrol, especially if she is vitamin D deficient. I will add the vitamin D level to [employer] work as well. I would hold on adding it for now, we will follow along with you. Thank you for the referral. VONNIE SOLER MD MT: [id number] Name: LEE ANN HERNDON MRN: [id number] Account: [id number] : 1940 Consult Date: 02/03/2014 Document: [id number] cc: Ihsaan Miranda MD Vonnie Soler MD - 02/03/2014 9:19 AM CDT Patient seen and examined. Full consult dictated. Appreciate Dr Miranda's care of Lee Ann. Recommendations: - I added a PTH to this mornings labs. Want to confirm function of the two remaining parathyroid glands. Natural for them to be suppressed and symptoms of hypocalemia can persist for up to 8 days aftersuccessful parathyroid surgery. - I would hold off on further iv calcium, unless calcium is very low, so we can see if she is able to maintain on oral replacement, likely will need 3-4 grams of elemental calcium per day in divided doses. I typically taper dose by one gram a week until off all supplemental calcium. Agree that part ofthe problem was her inability to keep the oral replacement down in the early post-operative period. - Agree she might need rocaltrol, especially if she is vitamin D deficient. Will add Vitamin D levelas well. Hold on adding for now. - Will follow with you. Vonnie Soler MD documented in this encounter ED Notes Odell Bailey RN - 02/03/2014 5:17 AM CDT Pt stated pain in muscles is coming back. Dr. Buck notified. Odell Bailey RN - 02/03/2014 4:11 AM CDT Pt states feeling better but still muscle pain and tightness in legs and neck. Tesfaye Buck MD - 02/03/2014 2:06 AM CDT History Chief Complaint: Muscle spasms HPI Lee Ann Herndon is a 73 year old female with a history of hyperparathyroidism, status post parathyroidectomy 01/26/14 who presents with muscle spasms. The patient states that the calcium supplements she was taking after parathyroidectomy made her sick to her stomach and she would vomit with taking them. She had diffuse severe muscle cramping that began yesterday with some shortness of breath that feels like someone is holding onto my throat. Pain from muscle spasm is particularly severe in her back and neck. She feels slightly nauseous. Due to the persistence of the spams, she came to the ED for further evaluation. Patient denies any fevers, chills, abdominal pain, or changes in bowel or bladder habits. Allergies: Allergies Allergen Reactions ??? Cephalosporins Hives keflex ??? Clindamycin Diarrhea ??? Erythromycin Nausea and Vomiting and Hives ??? Lisinopril Dizzy ??? Penicillins Hives and Itching ??? Sympathomimetics Swelling resperidol ??? Tetracyclines Hives and Itching Medications: [place] 5-325 mg Calcium carbonate Zoloft Past Medical History: GERD Depression Hiatal hernia Colon polyp Hypertension Arthritis Thyroid disease Edema Hyperparathyroidism Obesity Anxiety Osteoarthrosis Past Surgical History: Procedure Laterality Date ??? C nonspecific procedure [...] ??? Parathyroidectomy 01/26/2014 Procedure: PARATHYROIDECTOMY; Surgeon: Vonnie Soler MD; Location: [facility] OR Family History: Breast CA, mother, sister Social History: Marital Status: , the patient is here with her . Never smoker Alcohol use: no Review of Systems Constitutional: Negative for fever and chills. Gastrointestinal: Positive for nausea and vomiting. Musculoskeletal: Muscle spasms All other systems reviewed and are negative. Physical Exam First Vitals: BP: 167/98 mmHg Pulse: 82 Temp: 98.2 ??F (36.8 ??C) Resp: 24 SpO2: 98 % Physical Exam CONST: Alert. Oriented x 3. Has intermittent episodes of visible discomfort due to pain from spasms throughout body, but particularly at bilateral lower neck and upper thoracic back region. Between these episodes which occur multiple times per minute on initial exam, appears slightly more comfortable,but not completely relieved of pain distress. Appears slightly anxious. Lying back on stretcher. HENT: No injection, erythema, or edema. No tonsillar exudates or hypertrophy present bilaterally. Nofocal swelling suggestive of abscess. Uvula midline. EYES: No discharge. Normal conjunctiva bilaterally. Non-icteric. EOMI bilaterally. No deviation. No proptosis. No ptosis or lid tremor bilatereally. No nystagmus. PERRLA. NECK: No bony tenderness or deformity midline cervical spine. Horizontal surgical wound at lower anterior neck appears to be healing well, no discharge, erythema, crepitus, or induration. Wound is mildly tender over incision only. No palpable seroma or swelling near wound or at wound site. Tenderness present at bilateral paravertebral muscles level C4-7. ROM decreased secondary to spasms. Trachea midline. No stridor. No pulsatile masses. CARDIO:Regular rate and rhythm. No murmurs, rubs, or gallops with auscultation. JVD absent. No cyanosis of all distal extremities. No mottling. No pallor. No pulsatile lesions of neck or near wound of neck. No peripheral edema. RESP/CHEST:Normal effort, no distress. Clear to auscultation bilaterally, no wheezes, rales, or rubs. ABD/GI: Soft, Non-tender, No rebound or guarding. No distension. No organomegaly. No palpable mass. Normal bowel sounds. No palpable hernia.. : No CVA tenderness to percussion bilaterally. and No flank tenderness to palpation bilaterally. MUSC: Palpable spasm episodes of trapezius region bilaterally. Decreased ROM at neck 2/2 to this andfrequent shoulder shrugging and mild extension of neck as a result. Tenderness present at sites as per NECK section and bilateral upper T- spine paravertebral muscle region T1-T5 with palpable spasming.No midline T or L-spine tenderness or deformities. No bony deformities or soft tissue deformities ofall extremities. No edema in extremities. All compartments of extremities and C, T, and L-spine paravertebral muscles are soft between spasms. NEURO:Alert and Oriented x 3. Normal speech. CN's 2-12 intact. No seizure activity or tremor although frequent tetany of lower neck and upper back is present for 3-4 second intervals multiple times perminute on initial exam. No facial spasms were evident on initial exam. Chovstek sign positive right side, not definite present left side. Occasional spasm movements upper shoulders with shrugging. Irregular motor agitation Bilat UE's more than Bilat LE's which are more spasm-like than seizure or tremor-like in appearance. No persistent tetany or carpal-pedal spasms. Normal sensation all extremities throughout. Coordination abnormal due to frequent spasms, although near normal in Bilat UE's between spasm episodes. Not able to test gait due to spasms causing intense pain episodes. SKIN: No rash, petechiae, purpura, cellulitis, cyanosis, erythema, or skin breaks. PSYCH: Anxious appearing, normal judgement. Emergency Department Course ECG: Indication: Rule out cardiac Findings: Normal sinus rhythm, normal ECG read at 2:[address] Buck Ventricular rate: 82 bpm TX interval: 140 ms QRS duration: 84 ms QT/QTc: 382/446 ms Imaging: CXR: Limited due to sitting position, no acute process. Reading per Dr. Buck Radiographic findings were communicated with the patient who voiced understanding of the findings. Laboratory: CBC: WBC 8.1, HGB 13.8, PLT 135 (H) BMP: Creatinine: 0.90, calcium 8.2 (L), glucose 101 (H), o/w WNL INR: 1.00 Magnesium: 2.0 CK total: 1.3 Calcium ionized: 4.1 (L) Troponin I: <0.012 Interventions: Calcium gluconate 1 g IV Calcium chloride 1 g IV Zofran 4 mg IV Emergency Department Course: Nursing notes and vitals reviewed. I performed an exam of the patient as documented above. IV inserted and blood drawn. CXR obtained. Results as above. Findings discussed with the patient. Findings and plan explained to the Patient and who consents to admission. Discussed the patient with Dr. Miranda, who will admit the patient to a medical bed for further monitoring, evaluation,and treatment. Impression & Plan Medical Decision Makin73 year old female who underwent recent parathyroidectomies who presents today with muscles spasms and inability to tolerate her oral calcium supplementation. She appears to have tetani secondary to a slightly low calcium. I suspect it dropped quickly and that is why she is having the tetani out of proportion to the hypocalcemia. She was supplemented here with calcium chloride which did give her significant improvement but did not give her resolution. I will admit her for likely ongoing IV supplementation as the initial dose is likely not going to last more than a few hours. Patient was agreeable to this plan. Otherwise I see no emergent conditions including no significant cardiac abnormality. Diagnosis: Visit Diagnosis, Associated Orders, and Comments ICD-9-CM 1. Hypocalcemia 275.41 2. 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 Nausea/VOmiting 2/2 medication I, Kacie Sheffield, am serving as a scribe on 02/03/2014 to document services personally performed by Tesfaye Buck MD, based on my observations and the provider's statements to me. Kacie Sheffield 02/03/2014 [facility] EMERGENCY DEPARTMENT Tesfaye Buck MD 02/09/14 [id number] documented in this encounter Miscellaneous Notes Plan of Care - Yanelis Chow CM - 02/04/2014 11:40 AM CDT Patient plans on having lab drawn here at the hospital instead of going to her PCP office. No followup arranged. Plan of Care - Holly Chance RN - 02/04/2014 5:38 AM CDT Problem: IP GENERAL POC-ADULT,OB,BEHAVIORAL [facility]CPM Goal: Individualization/Patient-Specific Goal (Adult,OB,Behavioral The patient and/or their off premise service representative will achieve their patient-specific goals related to the plan of care. The patient-specific goals include: Outcome: Improving Ibuprofen given during night for neck aching with good relief. Up to BR with SBA, tolerating well. No dizziness when up like she had experienced during evening shift. Plan of Care - Holly Chance RN - 02/04/2014 5:35 AM CDT Problem: Fall/Trauma/Injury Risk (Adult, Obstetrics) Goal: Identify Signs and Symptoms and Related Risk Factors Signs and symptoms and related risk factors are identified upon initiation of Human Response Clinical Practice Guideline (CPG) Outcome: Improving Plan of Care - Susan Hamm RN - 02/03/2014 10:27 PM CDT Problem: Fall/Trauma/Injury Risk (Adult, Obstetrics) Goal: Identify Signs and Symptoms and Related Risk Factors Signs and symptoms and related risk factors are identified upon initiation of Human Response Clinical Practice Guideline (CPG) Outcome: Improving VSS, Afebrile. Lung sounds clear. +BS +flatus. Tolerating diet. Voiding good amounts up independent . Pain controlled. Skin controlled. Old incision on ant neck covered with seri strips, Moves well. Alert and oriented pleasant. No significant issues this shift. Recheck Ca tomorrow morning and if normal limits patient can dc home. Ibp for pain control Plan of Care - Marlena Dejesus RN - 02/03/2014 3:10 PM CDT Problem: General Plan of Care Goal: Plan of Care Review Outcome: Improving Pt complains of neck and back spasms; improved this afternoon, however, still very sore/stiff. Pt took norco x1 and ibuprofen x1. Heating pad at bedside. IV calcium gluconate given x1 this am; PO calcium TID as ordered; pt tolerating and denies nausea. Pt frustrated and felt that she should not have any pain since my calcium is back in normal range. Educated patient. Plan to recheck labs as ordered. Up with SBA x1. Pharmacy-Admission Medication History - Ana M Barroso [facility] - 02/03/2014 11:18 AM CDT Admission medication history interview status for this patient is complete. See [facility] admission navigator for allergy information, prior to admission medications and immunization status. Medication history interview source(s):Patient Medication history resources (including written lists, pill bottles, clinic record):None Primary pharmacy:[facility] in [place] Changes made to HAM CLERK medication list: Added: ibuprofen Deleted: Changed: calcium, Zoloft, ZZquil, Actions taken by pharmacist (provider contacted, etc):None Additional medication history information:None Medication reconciliation/reorder completed by provider prior to medication history? Yes Prior to Admission medications Medication Sig Last Dose Taking? Auth Provider calcium carbonate (OS-HAVEN 500 MG [place]. [place]) 500 MG tablet Take 1,000 mg by mouth 2 times daily 02/02/2014 at Unknown time Yes Dummy, Bfp User Sertraline HCl (ZOLOFT PO) Take 25 mg by mouth daily Past Week at Unknown time Yes Dummy, Bfp User Sertraline HCl (ZOLOFT PO) Take 25 mg by mouth daily as needed (if having a bad day can take one extra tablet) Yes Dummy, Bfp User IBUPROFEN PO Take 200 mg by mouth as needed for moderate pain Past Week at Unknown time Yes Dummy, Bfp User HYDROcodone-acetaminophen (NORCO) 5-325 MG per tablet Take 1-2 tablets by mouth every 4 hours as needed for moderate to severe pain 02/02/2014 at Unknown time Yes Vonnie Soler MD [id number] Zzzquil, take 1 capsule daily as needed Past Week at Unknown time Yes Reported, Patient ORDER FOR DME Equipment being ordered: compression stockings 15-20 mmhg Ranjith Hughes MD documented in this encounter Plan of Treatment Not on filedocumented as of this encounter Procedures Procedure Name Priority Date/Time Associated Diagnosis Comme nts CALCIUM IONIZED Routine 02/04/2014 9:10 AM Hypocalcemia Result s for this CDT procedure are i n the results section. BASIC METABOLIC PANEL Routine 02/04/2014 6:15 AM Hypocalcemia Results for this CDT procedure are i n the results section. GLUCOSE BY METER Routine 02/03/2014 11:10 Hypocalcemia Results for this PM CDT procedure are i n the results section. VITAMIN D DEFICIENCY Routine 02/03/2014 8:40 AM Hypocalcemia R esults for this SCREENING CDT procedure are i n the results section. PARATHYROID HORMONE Routine 02/03/2014 8:40 AM Hypocalcemia Re sults for this INTACT CDT procedure are i n the results section. IONIZED CALCIUM Routine 02/03/2014 8:40 AM Hypocalcemia Result s for this CDT procedure are i n the results section. BASIC METABOLIC PANEL Routine 02/03/2014 8:40 AM Hypocalcemia Results for this CDT procedure are i n the results section. XR CHEST 2 VIEWS STAT 02/03/2014 3:25 AM Resul ts for this CDT procedure are i n the results section. EKG 12-LEAD, TRACING STAT 02/03/2014 2:33 AM R esults for this ONLY CDT procedure are i n the results section. CBC WITH PLATELETS & STAT 02/03/2014 1:05 AM R esults for this DIFFERENTIAL CDT procedure are i n the results section. TROPONIN I STAT 02/03/2014 1:05 AM Results f or this CDT procedure are i n the results section. INR STAT 02/03/2014 1:05 AM Results f or this CDT procedure are i n the results section. MAGNESIUM STAT 02/03/2014 1:05 AM Results f or this CDT procedure are i n the results section. CK TOTAL STAT 02/03/2014 1:05 AM Results f or this CDT procedure are i n the results section. CALCIUM IONIZED STAT 02/03/2014 1:05 AM Result s for this CDT procedure are i n the results section. BASIC METABOLIC PANEL STAT 02/03/2014 1:05 AM Results for this CDT procedure are i n the results section. documented in this encounter Results Calcium ionized (02/04/2014 9:10 AM CDT) athologist Signature Calcium Ionized 4.4 4.4 - 5.2 [place] mg/dL [facility] Specimen Anatomical Collection Method Collection Time Receive d Time (Source) Location / / Volume Laterality Blood specimen 02/04/2014 9:10 AM 014 9:23 (specimen) CDT AM CDT Jhon Oconnor MD LAB - BLOOD ORDERABLES Performing Organization Address City/State/ZIP Code Phon e Number [place] [address] [address] [facility] (ABNORMAL) Basic metabolic panel (02/04/2014 6:15 AM CDT) athologist Signature Sodium 144 133 - 144 [place] mmol/L [facility] Potassium 4.6 3.4 - 5.3 [place] mmol/L [facility] Chloride 110 (H) 94 - 109 [place] mmol/L [facility] Carbon Dioxide 26 20 - 32 [place] mmol/L [facility] Anion Gap 7 6 - 17 [place] mmol/L [facility] Glucose 94 60 - 99 [place] mg/dL [facility] Urea Nitrogen 13 7 - 30 [place] mg/dL [facility] Creatinine 0.94 0.52 - [facility] 1.04 mg/dL [facility] GFR Estimate 59 (L) >60 [place] mL/min/1.[address] [place] [address] LAB GFR Estimate If 71 >60 [place] Black mL/min/1.[address] [place] [address] LAB Calcium 7.8 (L) 8.5 - 10.4 [place] mg/dL [facility] Specimen Anatomical Collection Method Collection Time Receive d Time (Source) Location / / Volume Laterality Blood specimen 02/04/2014 6:15 AM 014 6:46 (specimen) CDT AM CDT Ishaan Miranda MD LAB - BLOOD ORDERABLES Performing Organization Address City/State/ZIP Code Phon e Number [facility] [address] [place], [place] [address] [facility] Glucose by meter (02/03/2014 11:10 PM CDT) P athologist Signature Glucose 99 60 - 99 POINT OF CARE mg/dL TEST, GLUCOSE Specimen Anatomical Collection Method Collection Time Receive d Time (Source) Location / / Volume Laterality 02/03/2014 11:10 02/03/2014 PM CDT 11:15 PM CDT Ishaan Miranda MD LAB - BEAKER POCT Performing Organization Address City/[facility]/ZIP Code Phon e Number [facility] POINT OF CARE TEST, GLUCOSE POINT OF CARE TEST, GLUCOSE (ABNORMAL) Vitamin D Deficiency (02/03/2014 8:40 AM CDT) Component Value Ref Test Analysis Performed At Patholo gist Range Method Time Signature Vitamin D <13 30 - 75 [facility] Deficiency Season, race, dietary intake , and treatment affect the concentration of ug/L [facility] screening [id number] D. Value s may decrease during winter months and increase CAMPUS LABS during summer months. Values less than 30 ug/L may indicate Vitamin D deficiency. Vitamin D determiniation is routinely performed by an immunoassay specific for 25 hydroxyvitamin D3. ??If an individual is on vitamin D2 (ergocalciferol) supplementation, please spe cify 25 [place] vitamin D2 and D3 level determination by LCMSMS test [id number]. ??For questions, please contact the lab oratory at [phone]. (L) Specimen Anatomical Collection Method Collection Time Receive d Time (Source) Location / / Volume Laterality 02/03/2014 8:40 AM 4 8:58 CDT AM CDT Ishaan Miranda MD LAB - BLOOD ORDERABLES Performing Organization Address City/State/ZIP Code Phon e Number [facility] [address] [place] [address] [facility] LABS (ABNORMAL) Parathormone intact (02/03/2014 8:40 AM CDT) Patholo gist Method Time Signature Parathyroid 104 (H) 12 - 72 [facility] Hormone Intact pg/mL [facility] LABS Comment: Test Added Specimen Anatomical Collection Method Collection Time Receive d Time (Source) Location / / Volume Laterality 02/03/2014 8:40 AM 4 9:09 CDT AM CDT Ishaan Miranda MD LAB - BLOOD ORDERABLES Performing Organization Address City/[facility]/ZIP Code Phon e Number [facility] [address] [place] [address] [facility]S Calcium ionized whole blood (Add on or recollect) (02/03/2014 8:40 AM CDT) athologist Signature Calcium Ionized 4.6 4.4 - 5.2 [place] Whole Blood mg/dL [facility] Specimen Anatomical Collection Method Collection Time Receive d Time (Source) Location / / Volume Laterality Blood specimen 02/03/2014 8:40 AM 014 8:59 (specimen) CDT AM CDT Ishaan Miranda MD LAB - BLOOD ORDERABLES Performing Organization Address City/State/ZIP Code Phon e Number [facility] [address] [place], [place] [address] [facility] LAB (ABNORMAL) Basic metabolic panel (02/03/2014 8:40 AM CDT) athologist Signature Sodium 142 133 - 144 [place] mmol/L [facility] Potassium 4.5 3.4 - 5.3 [place] mmol/L [facility] Chloride 106 94 - 109 [place] mmol/L [facility] Carbon Dioxide 26 20 - 32 [place] mmol/L [facility] Anion Gap 9 6 - 17 [place] mmol/L [facility] Glucose 103 (H) 60 - 99 [place] mg/dL [facility] Urea Nitrogen 13 7 - 30 [place] mg/dL [facility] Creatinine 0.91 0.52 - [facility] 1.04 mg/dL [facility] GFR Estimate 61 >60 [place] mL/min/1.7 [facility] m2 [facility] LAB GFR Estimate If 74 >60 [place] Black mL/min/1.7 [facility] m2 [facility] Calcium 8.7 8.5 - 10.4 [place] mg/dL [facility] Specimen Anatomical Collection Method Collection Time Receive d Time (Source) Location / / Volume Laterality Blood specimen 02/03/2014 8:40 AM 014 8:58 (specimen) CDT AM CDT Ishaan Miranda MD LAB - BLOOD ORDERABLES Performing Organization Address City/State/ZIP Code Phon e Number M [facility] [address] [place], [place] [address] [facility] Chest XR, PA & LAT (02/03/2014 3:25 AM CDT) Anatomical Region Laterality Modality Chest Computed Radiography Specimen (Source) Anatomical Location Collection Method / Collectio n Time Received Time / Laterality Volume Impressions 02/03/2014 6:57 AM CDT IMPRESSION: Cardiomegaly. Chest otherwise negative. JAZZY ROWLAND MD Narrative 02/03/2014 6:57 AM CDT XR CHEST 2 VW 02/03/2014 6:57 AM HISTORY: SOB, ? Procedure Note Jazzy Rowland MD - 02/03/2014Formatt ing of this note might be different from the original. XR CHEST 2 VW 02/03/2014 6:57 AM HISTORY: SOB, IMPRESSION IMPRESSION: Cardiomegaly. Chest otherwis e negative. JAZZY ROWLAND MD Tesfaye Buck MD IMG DIAGNOSTIC IMAGING ORDER BERNARDO EKG 12-lead, tracing only (02/03/2014 2:33 AM CDT) [facility] gist Method Time Signature Interpretation ECG Click View RADIOLOGY Image link RESULTS to view waveform and result Specimen (Source) Anatomical Collection Method Collection Time Re ceived Time Location / / Volume Laterality 02/03/2014 2:33 AM CDT Tesfaye Buck MD ECG ORDERABLES Performing Organization Address City/State/ZIP Code Phon e Number RADIOLOGY RESULTS Troponin I (02/03/2014 1:05 AM CDT) athologist Signature Troponin I ES <0.012 0.000 - [place] 0.034 ug/L [facility] Specimen Anatomical Collection Method Collection Time Receive d Time (Source) Location / / Volume Laterality Blood specimen 02/03/2014 1:05 AM 014 2:47 (specimen) CDT AM CDT Tesfaye Buck MD LAB - BLOOD ORDERABLES Performing Organization Address City/[facility]/ZIP [facility] [place] Phon e Number [facility] [address] [place], [place] [phone] [place] [address] LAB (ABNORMAL) Calcium ionized (02/03/2014 1:05 AM CDT) athologist Signature Calcium 4.1 (L) 4.4 - 5.2 [place] Ionized mg/dL [facility] Specimen Anatomical Collection Method Collection Time Receive d Time (Source) Location / / Volume Laterality Blood specimen 02/03/2014 1:05 AM 014 2:47 (specimen) CDT AM CDT Tesfaye Buck MD LAB - BLOOD ORDERABLES Performing Organization Address City/[facility]/ZIP Code Phon e Number [facility] [address] [place], [place] [address] [phone] [place] [address] LAB CK total (02/03/2014 1:05 AM CDT) athologist Signature CK Total 103 30 - 225 [facility] U/L [facility] Specimen Anatomical Collection Method Collection Time Receive d Time (Source) Location / / Volume Laterality Blood specimen 02/03/2014 1:05 AM 014 2:47 (specimen) CDT AM CDT Tesfaye Buck MD LAB - BLOOD ORDERABLES Performing Organization Address City/[facility] Phon e Number [facility] [address] [place], [place] [address] [phone] [place] [address] LAB Magnesium (02/03/2014 1:05 AM CDT) athologist Signature Magnesium 2.0 1.6 - 2.3 [facility] mg/dL [facility] Specimen Anatomical Collection Method Collection Time Receive d Time (Source) Location / / Volume Laterality Blood specimen 02/03/2014 1:05 AM 014 2:47 (specimen) CDT AM CDT Tesfaye Buck MD LAB - BLOOD ORDERABLES Performing Organization Address City/[facility] Code Phon e Moriah Foreman [facility] [address] [place], [place] [address] [facility] LAB (ABNORMAL) Basic metabolic panel (02/03/2014 1:05 AM CDT) athologist Signature Sodium 141 133 - 144 [place] mmol/L [facility] Potassium 4.0 3.4 - 5.3 [place] mmol/L [facility] Chloride 106 94 - 109 [place] mmol/L [facility] Carbon Dioxide 22 20 - 32 [place] mmol/L [facility] Anion Gap 13 6 - 17 [place] mmol/L [facility] Glucose 101 (H) 60 - 99 [place] mg/dL [facility] Urea Nitrogen 16 7 - 30 [place] mg/dL [facility] Creatinine 0.90 0.52 - [facility] 1.04 mg/dL [facility] GFR Estimate 62 >60 [place] mL/min/1.[address] LAB GFR Estimate If 75 >60 [place] mL/min/1.[address] LAB Calcium 8.2 (L) 8.5 - 10.4 [place] mg/dL [facility] Specimen Anatomical Collection Method Collection Time Receive d Time (Source) Location / / Volume Laterality Blood specimen 02/03/2014 1:05 AM 014 2:47 (specimen) CDT AM CDT Tesfaye Buck MD LAB - BLOOD ORDERABLES Performing Organization Address City/[facility]/ZIP Code Phon e Number Kellen [facility] [address] [place], [place] [address] [facility] INR (02/03/2014 1:05 AM CDT) athologist Signature INR 1.00 0.86 - 1.14 [facility] LAB Specimen Anatomical Collection Method Collection Time Receive d Time (Source) Location / / Volume Laterality Blood specimen 02/03/2014 1:05 AM 014 2:47 (specimen) CDT AM CDT Tesfaye Buck MD LAB - BLOOD ORDERABLES Performing Organization Address City/State/ZIP Code Phon e Moriah M [facility] [address] [place], [place] [address] [facility] LAB (ABNORMAL) CBC with platelets differential (02/03/2014 1:05 AM CDT) [facility] gist Method Time Signature WBC 8.1 4.0 - [place] 11.0 [facility] 10e9/L [facility] RBC Count 4.53 3.8 - 5.2 [place] 10e12/L [facility] Hemoglobin 13.8 11.7 - [place] 15.7 g/dL [facility] Hematocrit 43.3 35.0 - [place] 47.0 % [facility] MCV 96 78 - 100 [place] fl [facility] MCH 30.5 26.5 - [place] 33.0 pg [facility] MCHC 31.9 31.5 - [place] 36.5 g/dL [facility] RDW 14.1 10.0 - [place] 15.0 % [facility] Platelet Count 135 (L) 150 - 450 [place] [address]e/[facility] LAB Diff Method Automated [facility] LAB % Neutrophils 58.4 % [facility] % Lymphocytes 32.0 % [facility] % Monocytes 6.3 % [facility] % Eosinophils 3.0 % [facility] % Basophils 0.1 % [facility] % Immature 0.2 % [place] Granulocytes [facility] Absolute 4.8 1.6 - 8.3 [place] Neutrophil 10e9/L [facility] Absolute 2.6 0.8 - 5.3 [place] Lymphocytes 10e9/L [facility] Absolute 0.5 0.0 - 1.3 [place] Monocytes 10e9/L [facility] Absolute 0.2 0.0 - 0.7 [place] Eosinophils 10e9/L [facility] Absolute 0.0 0.0 - 0.2 [place] Basophils 10e9/L [facility] Abs Immature 0.0 0 - 0.4 FRIERSON Granulocytes 10e9/L [facility] Specimen Anatomical Collection Method Collection Time Receive d Time (Source) Location / / Volume Laterality Blood specimen 02/03/2014 1:05 AM 014 2:47 (specimen) CDT AM CDT Tesfaye Buck MD LAB - BLOOD ORDERABLES Performing Organization Address City/State/ZIP Code Phon e Number M [facility] [address] [place], [place] [address] [facility] documented in this encounter Visit Diagnoses Diagnosis Hypocalcemia - Primary Hypocalcemia [place] due to low calcium from parathyro id disease (H) Hypoparathyroidism [place] due to low calcium from parathyro id disease (H) Hypoparathyroidism documented in this encounter Admitting Diagnoses Diagnosis Hypocalcemia [place] due to low calcium from parathyro id disease (H) Hypoparathyroidism documented in this encounter Administered Medications Inactive Administered Medications - up to 3 most recent administrations Medication Order MAR Action Action Date Dose Rate Site 0.9 % sodium chloride IV Rate/Dose Verify 02/04/2014 12:00 AM 1,000 mLs 75 mL/hr solution CDT at 75 mL/hr, Intravenous, CONTINUOUS, Starting on Sun02/03/14 at 0730, Until Sun02/04/14 at 1411 New Bag 02/03/2014 10:35 PM CDT 1,000 mLs 75 mL/hr New Bag 02/03/2014 8:30 AM CDT 1,000 mLs 75 mL/hr calcium chloride injection 1 g Given 02/03/2014 3:37 AM CDT 1 g 1 g, Intravenous, Administer over 3 Minutes, ONCE, On Sun02/03/14 at 0330, For 1 dose, For non-emergent use administer in central line only; CAUTION: contains high calcium concentration, Max Rate 50 mg/min injection. calcium citrate (CALCITRATE) tablet 950 mg Given 02/04/2014 8:04 AM CDT 950 mg 950 mg, Oral, 3 TIMES DAILY WITH MEALS, First dose on Sun02/03/14 at 0900 Given 02/03/2014 5:47 PM CDT 950 mg Given 02/03/2014 12:17 PM CDT 950 mg calcium gluconate 1 g in D5W 100 mL IVPB Given 02/03/2014 5:46 AM CDT 1 g 100 mL/hr 1 g, Intravenous, Administer over 60 Minutes, at 100 mL/hr, ONCE, On Sun02/03/14 at 0530, For 1 dose calcium gluconate 1,000 mg in NaCl Given 02/03/2014 8:25 AM CDT 1,000 mg 100 mL/hr 0.9% 100 mL injection 1,000 mg, Intravenous, Administer over 0.5-1 Hours, at 100-200 mL/hr, ONCE, On Sun02/03/14 at 0745, For 1 dose HYDROcodone-acetaminophen (NORCO) 5-325 MG Given 02/03 8:31 AM CDT 1 tablet per tablet 1-2 tablet 1-2 tablet, Oral, EVERY 4 HOURS PRN, moderate to severe pain, Starting on Sun02/03/14 at 0711, Maximum acetaminophen dose from all sources= 75 mg/kg/day not to exceed 4 grams ibuprofen (ADVIL,MOTRIN) tablet 400 mg Given 02/04/2014 12:46 AM CDT 400 mg 400 mg, Oral, EVERY 6 HOURS PRN, other, mild pain, Starting on Sun02/03/14 at 0713, Alternate acetaminophen (if ordered) with ibuprofen Given 02/03/2014 5:47 PM CDT 400 mg Given 02/03/2014 12:24 PM CDT 400 mg ondansetron (ZOFRAN) injection 4 mg Given 02/03/2014 2:32 AM CDT 4 mg 4 mg, Intravenous, EVERY 30 MIN PRN, nausea, vomiting, Administer over 2-5 Minutes, Starting on Sun02/03/14 at 0219, For 3 doses, May repeat in 30 minutes as needed, up to 3 doses. sertraline (ZOLOFT) tablet 25 mg Given 02/04/2014 8:04 AM CDT 25 mg 25 mg, Oral, DAILY, First dose (after last modification) on Sun02/04/14 at 0900 documented in this encounter Active and Recently Administered Medications Times are shown in CDT. Scheduled Medication Order 02/02/2014 02/03/2014 02/04/2014 calcium chloride injection 1 g (COMPLETED) 0337 (Given - Provider: Arlene Carr RN) 1 g, Intravenous, for 3 Minutes, ONCE, T 02/03/14 at 0330, For 1 dose, For non- emergent use administer in central line only; CAUTION: contains high calcium concentration, Max Rate 50 mg/min injection. calcium citrate (CALCITRATE) tablet 950 mg (CANCELED) 0949 (Given - Provider: Marlena Dejesus RN)1217 (Given - Provider: Marlena Dejesus RN)1747 (Given - Provider: Susan Hamm, RN) 0804 (Given - Provider: Belkis ruiz RN) 950 mg, Oral, 3 TIMES DAILY WITH MEALS, First dose on Sun02/03/14 at 0900 calcium citrate (CALCITRATE) tablet 950 mg 950 mg, Oral, 4 TIMES DAILY, First dose on Sun02/04/14 at 1300 calcium gluconate 1 g in D5W 100 mL IVPB (COMPLETED) 0546 (Given - Provider: Odell Bailey RN)0550 (ED Infusing on Admission/transfer - Provider: Odell Bailey RN) 1 g, Intravenous, for 60 Minutes, ONCE, Sun02/03/14 at 0530, For 1 dose calcium gluconate 1,000 mg in NaCl 0.9% 100 mL injection (CO MPLETED) 0825 (Given - Provider: Marlena Dejesus RN - Comment: stopped 924) 1,000 mg, Intravenous, for 0.500 Hours, ONCE, Sun02/03/14 at 0745 , For 1 dose sertraline (ZOLOFT) tablet 25 mg (CANCELED) 0804 (Given - Provider: Belkis Cochran RN) 25 mg, Oral, DAILY, First dose on Sun02/04/14 at 0900 Continuous Medication Order 02/02/2014 02/03/2014 02/04/2014 0.9 % sodium chloride IV solution (CANCELED) 0830 (New Bag - Provider: Marlena Dejesus RN)2235 (New Bag - Provider: Susan Hamm RN) 0000 (Rate/Dose Verify - Provider: Holly Chance RN)0801 (Stopped - Provider: Belkis Cochran RN) at 75 mL/hr, Intravenous, CONTINUOUS, St arting Sun02/03/14 at 0730, Until Sun02/04/14 at 1411 PRN Medication Order 02/02/2014 02/03/2014 02/04/2014 HYDROcodone-acetaminophen (NORCO) 5-325 MG per tablet 1-2 ta blet (CANCELED) 0831 (Given - Provider: Marlena Dejesus, RN) 1-2 tablet, Oral, EVERY 4 HOURS PRN, mod erate to severe pain, Starting Sun02/03/14 at 0711, Maximum acetaminophen dose from all sources= 75 mg/kg/day not to exceed 4 grams ibuprofen (ADVIL,MOTRIN) tablet 400 mg (CANCELED) 1224 (Given - Provider: Marlena Dejesus, RN)1747 (Given - Provider: Susan Hamm RN) 0046 (Given - Provider: Holly Chance RN) 400 mg, Oral, EVERY 6 HOURS PRN, other, mild pain, Starting Sun02/03/14 at 0713, Alternate acetaminophen (if ordered) with ibuprofen ondansetron (ZOFRAN) injection 4 mg (CANCELED) 0232 (Given - Provider: Odell Bailey RN) 4 mg, Intravenous, EVERY 30 MIN PRN, rupal sea, vomiting, for 2 Minutes, Starting Sun02/03/14 at 0219, For 3 doses, May repeat in 30 minutes as needed, up to 3 doses. documented in this encounter Care Teams Beer Still Runner Compounder Relationship Specialty Start Date End Date Julia White MD PCP - General Family Practice 12/18/13 11/01/14 [address] [place] [address] documented as of this encounter
--- OUTSIDE RECORDS SUMMARY | 2022-07-19 22:59 | XMS_ITS | Encounter Summary ---
:1940 Author Organization [facility] Address [address] [place] [address] Care Team Providers Name Role Phone Julia White MD Primary Care Provider Reason for Visit Auth/Cert - Closed Specialty Diagnoses / Procedures Referred By Contact Refer red To Contact Surgery Diagnoses Hyerparathyroidism Rh Periop Services Procedures PARATHYROIDECTOMY [address] [place] [address] Phone: Fax: Referral ID Status Reason Start Date Expiration Date Visits Requ ested Visits Authorized [id number] Closed 1 1 Encounter Details Date Type Department Care Team Description 01/26/2014 Anesthesia Event [facility] Leo Castellanos MD [facility] [id number] [place], [place] [address] [facility] PeriOp Servic Marsha Burch APRN CRNA [facility] [address] [place], [place] [id number] [address] [place] [address] Anesthesia Record Procedure Summary Procedure Name Responsible Anesthesia Start Anesthesia Stop Anesthesiologist Time Time Bilateral Neck Leo Castellanos MD 01/26/14 1259 4 1549 Exploration, Excision Bilateral Superior Parathyroid Adenoma, Pre Operative Sestimibi Injection, Rapid PTH Assay (Bilateral: Neck) Events Date Time Event Comment 01/26/2014 1259 An Start 1303 An Start Data 1316 MD Present 1320 An Induction 1320 AN START SEVO 1320 MD Present 1323 An Intubation 1323 MD Present 1325 MD Present 1353 MD Present 1429 MD Present 1438 MD Present 1506 An Surgeon on Cuff 1529 AN END SEVO 1534 MD Present 1544 an stop data 1548 MD Present 1549 An Stop Electronically s igned by Marsha Byrnes on January 26 4 3:50 PM Name Total midazolam 1mg/mL 2 mg fentanyl 50mcg/mL 300 mcg lidocaine 1% 30 mg propofol 10mg/mL 200 mg rocuronium 10mg/mL 40 mg glycopyrrolate 0.2mg/mL 0.2 mg dexamethasone 4mg/mL 8 mg ondansetron 2mg/mL 4 mg HYDROmorphone 1mg/ml 1 mg phenylephrine 10mg/mL 250 mcg levofloxacin (LEVAQUIN) IVPB 500 mg 500 mg metoprolol 2 mg labetalol 5 mg lactated ringers infusion 2,300 mL Agents Name O2 Air Exp Sevoflurane Blood No blood administrations on file. Lines, Drains, and Airways Type Details Placement Removal Urethral Catheter 01/26/14; No; 16 fr 01/26/14 0000 by 01/27/14 0600 by Sharmin Tee Becky A, RN Marie, ERICKSON Closed/Suction Drain 01/26/14; Neck; Bulb; 16 01/26/14 0000 by 0 01/27/14 1038 by Sharmin Forde Mary Kay, Marie, RN RN Peripheral IV 01/26/14; 1216; 18 G; 01/26/14 1216 by 01/27/14 0820 by Right; Hand Elvis Griffin Peterson, Jessica MD Lee RETIRED ETT 01/26/14; 1323; Airway 01/26/14 1323 by 01/26/14 1541 by Size: 7; Cuffed; Oral Marsha Byrnes her, Marsha endotracheal tube; Place RICHARD Douglas CRNA, APRN SPIKEMAKING SUPERVISOR by: ss; Insertion Attempts: 1; Secured at (cm)to lip: 23 cm; Breath Sounds: Equal, clear and bilateral; End Tidal CO2: Present; Dentition: Intact; Grade View of Cords: 1; Airway Adjuncts: Carlock scope Incision/Surgical Site 01/26/14; 1529; Neck; 01/26/14 1529 by 2150 by 06/28/16; 2149 Sharmin Tee Erin E, Marie, RN RN documented in this encounter Social History Tobacco Use Types Packs/Day Years Used Date Smoking Tobacco: Never Smokeless Tobacco: Never Alcohol Use Standard Drinks/Week Comments No 0 (1 standard drink = 0.6 oz pure alcoho l) Sex Assigned at Date Recorded Not on file documented as of this encounter OR Notes Anesthesia Postprocedure Evaluation - Leo Castellanos MD - 01/26/2014 6:17 PM CDT Anesthesia Post-Evaluation Note Patient: Lee Ann Herndon Patient location: PACU Procedure(s) Performed: Procedure(s) with comments: PARATHYROIDECTOMY - Neck Exploration, Excision Parathyroid Adenoma, Pre Operative Sestimibi Injection, Rapid PTH Assay Anesthesia type: General, ETT Post Op Diagnosis: * No post-op diagnosis entered *. Post Op Diagnosis Additional Comments:Hyperparathyroidism Patient Condition Respiratory Function (RR / SpO2 / Airway Patency): Satisfactory Cardiac Function (HR / Rhythm / BP): Satisfactory Mental Status: Satisfactory Temperature: Satisfactory Pain Control: Satisfactory PONV: None Beta-Jesus Therapy: None indicated Hydration Status: Satisfactory Last Vitals: Filed Vitals: 01/26/14 1645 01/26/14 1738 01/26/14 1816 BP: 145/85 126/74 128/74 Temp: 98.6 ??F (37 ??C) Resp: 08 18 16 SpO2: 92% 93% 94% Additional Comments: AK Anesthesia Preprocedure Evaluation - Elvis Griffin MD - 01/26/2014 12:24 PM CDT Anesthesia Evaluation . Pt has had prior anesthetic. No history of anesthetic complications ROS/MED HX ENT/Pulmonary: Neurologic: Cardiovascular: (+) hypertension . : . . . :. . METS/Exercise Tolerance: Hematologic: Musculoskeletal: GI/Hepatic: (+) GERD hiatal hernia, Renal/Genitourinary: Endo: Psychiatric: (+) psychiatric history depression Infectious Disease: Malignancy: Other: Physical Exam Normal systems: cardiovascular and pulmonary Airway Mallampati: II TM distance: >3 FB Neck ROM: full Dental Cardiovascular Pulmonary Anesthesia Plan ASA Score: 2 . Plan for General and ETT - with Propofol and Intravenous induction.Maintenance will be Balanced. Routine analgesia and antiemetics to be used for post-operative care. Anesthetic plan, risks, benefits and alternatives discussed with: patient or automobile rental representative. History & Physical Review History and physical reviewed; no interval change. . documented in this encounter Miscellaneous Notes Anesthesia Care Transfer Note - Marsha Byrnes APRN CRNA - 01/26/2014 3:49 PM CDT Patient tolerated procedure well. VSS. TOF 4/4. Suctioned. Spontaneous respirations.Anesthesia Care Transfer Note Patient: Lee Ann Herndon Transferred to: PACU Patient vital signs: stable Airway: none documented in this encounter Plan of Treatment Not on filedocumented as of this encounter Visit Diagnoses Not on filedocumented in this encounter Administered Medications Inactive Administered Medications - up to 3 most recent administrations Medication Order MAR Action Action Date Dose Rate Site dexamethasone (DECADRON) injection Given 01/26/2014 1:20 PM CDT 8 mg PRN, Administer over 1-4 Minutes, Starting on Sun01/26/14 at 1320, Anesthesia Intra-op fentaNYL (SUBLIMAZE) injection Given 01/26/2014 2:57 PM CDT 50 mcg PRN, moderate to severe pain, Starting on Sun01/26/14 at 1320, Anesthesia Intra-op Given 01/26/2014 2:24 PM CDT 50 mcg Given 01/26/2014 2:22 PM CDT 50 mcg glycopyrrolate (ROBINUL) injection Given 01/26/2014 1:20 PM CDT 0.2 mg PRN, Starting on Sun01/26/14 at 1320, Anesthesia Intra-op HYDROmorphone (PF) (DILAUDID) injection Given 01/26/2014 2:04 PM CDT 0.5 mg PRN, moderate to severe pain, Starting on Sun01/26/14 at 1343, Anesthesia Intra-op Given 01/26/2014 1:43 PM CDT 0.5 mg labetalol (NORMODYNE,TRANDATE) injection Given 01/26/2014 3:36 PM CDT 5 mg PRN, high blood pressure, Starting on Sun01/26/14 at 1536, Anesthesia Intra-op lactated ringers infusion New Bag 01/26/2014 2:55 PM CDT at 75-100 mL/hr, Intravenous, CONTINUOUS, UNLESS otherwise indicated., Pre-procedure, Starting on Sun01/26/14 at 1130, Until Sun01/26/14 at 1546 New Bag 01/26/2014 1:36 PM CDT New Bag 01/26/2014 12:59 PM CDT levofloxacin (LEVAQUIN) IVPB 500 mg Given 01/26/2014 1:00 PM CDT 500 mg Routine, 500 mg, Intravenous, PRE-OP/PRE-PROCEDURE, Starting on Sun01/26/14 at 1113, For 1 dose, Administer at a rate of no greater than 100mL/hr, Indications: Perioperative Pharmacoprophylaxis, Pre-procedure lidocaine 1 % injection Given 01/26/2014 1:20 PM CDT 30 mg PRN, Starting on Sun01/26/14 at 1320, Anesthesia Intra-op metoprolol (LOPRESSOR) injection Given 01/26/2014 3:34 PM CDT 1 mg PRN, high blood pressure, Starting on Sun01/26/14 at 1328, Anesthesia Intra-op Given 01/26/2014 1:28 PM CDT 1 mg midazolam (VERSED) injection Given 01/26/2014 1:00 PM CDT 2 mg PRN, anxiety, Starting on Sun01/26/14 at 1300, Anesthesia Intra-op ondansetron (ZOFRAN) injection Given 01/26/2014 3:12 PM CDT 4 mg PRN, nausea, vomiting, Administer over 2-5 Minutes, Starting on Sun01/26/14 at 1512, Anesthesia Intra-op phenylephrine (WENDY-SYNEPHRINE) injection Given 01/26/2014 3:09 PM CDT 100 mcg PRN, Starting on Sun01/26/14 at 1331, Anesthesia Intra-op Given 01/26/2014 1:45 PM CDT 50 mcg Given 01/26/2014 1:31 PM CDT 100 mcg propofol (DIPRIVAN) injection 10 mg/mL v ial Given 01/26/2014 1:20 PM CDT 200 mg PRN, Starting on Sun01/26/14 at 1320, Anesthesia Intra-op rocuronium (ZEMURON) injection Given 01/26/2014 1:20 PM CDT 40 mg PRN, Starting on Sun01/26/14 at 1320, Anesthesia Intra-op documented in this encounter Care Teams Maritime Officer Relationship Specialty Start Date End Date Julia White MD PCP - General Family Practice 12/18/13 11/01/14 [address] [place] [address] documented as of this encounter
--- OUTSIDE RECORDS SUMMARY | 2022-07-19 22:59 | XMS_ITS | Encounter Summary ---
:1940 Author Organization [facility] Address [address] [place] [address] Care Team Providers Name Role Phone Julia White MD Primary Care Provider Reason for Visit Auth/Cert - Closed Specialty Diagnoses / Procedures Referred By Contact Refer red To Contact Surgery Diagnoses Hyerparathyroidism Rh Periop Services Procedures PARATHYROIDECTOMY [address] [place], [place] [address] Phone: Fax: Referral ID Status Reason Start Date Expiration Date Visits Requ ested Visits Authorized [id number] Closed 1 1 Encounter Details Date Type Department Care Team Description 01/26/2014 Surgery [facility] Guttormson, Vonnie, Bila teral [place]ck [place] PeriOp Servic es Exploration, Excision [address] Bilateral [place], [place] [address] Parathyroid [place], [address] [place] [address] Pre Operative Sestimibi [phone] (Wo rk) Injection, Rapid PTH Assay Surgery Details Date/Time Status Location OR Service Patient Case Class Case Type Trauma Class Case? 01/26/14 12:50 Posted RH OR OR 01 General Same Day PM Surgery Panel 1 Procedure LRB Anes Op Region Wound Class Commen ts Bilateral Neck Bilateral General Neck I-Clean Bilateral Neck Exploration, Excision Exp loration, Excision Bilateral Superior Bilate ral [place] Parathyroid Adenoma, Para thyroid Adenoma, Pre Operative Sestimibi P re Operative Injection, Rapid PTH Sest imibi Injection, Assay Rapid PTH Assa y Surgeon Surgeon Role Service Panel Vonnie Soler MD Primary General 1 Sarah Machado PA-C Assisting Cooler Service Supervisor Authorizati on 1 Special Needs 5'3.5 / 233# per H&P documented in this encounter Social History Tobacco Use Types Packs/Day Years Used Date Smoking Tobacco: Never Smokeless Tobacco: Never Alcohol Use Standard Drinks/Week Comments No 0 (1 standard drink = 0.6 oz pure alcoho l) Sex Assigned at Date Recorded Not on file documented as of this encounter Last Filed Vital Signs Vital Sign Reading Time Taken Comments Blood Pressure 142/93 01/26/2014 11:20 AM CDT Pulse - - Temperature 36.9 ??C (98.4 ??F) 01/26/2014 11:20 AM CDT Respiratory Rate 20 01/26/2014 11:20 AM CDT Oxygen Saturation 94% 01/26/2014 11:20 AM CDT Inhaled Oxygen Concentration - - Weight 108.9 kg (240 lb 1.3 oz) 01/26/2014 11:20 AM CDT Height 160 cm (5' 3) 01/26/2014 11:20 AM CDT Body Mass Index 46.09 01/26/2014 5:38 PM CDT documented in this encounter Discharge Instructions Discharge InstructionsVonnie Soler MD - 01/27/2014 10:18 AM CDT HOME CARE FOLLOWING PARATHYROID SURGERY Annia Andino E. Gavin Special instructions for Lee Ann Herndon: --Discharge medications: Calcium supplement and Whitakers Calcium Taper Schedule: Take two tablets every [...] Walk around frequently. You may consider an tlqt-bxi-mwhjeue stool-softener. Your Pharmacist can assist you with [...] to discuss with the nurse or physician infertility medical assistant. # There is a surgeon DIRECTOR OF CASINO on weekday evenings and over the weekend [...] tablets 100 tablet 0 201302/03/2014 500 MG [place]. [place]) 500 MG (1,000 mg) by tabletIndications: Primary mouth every 8 hyperparathyroidism (H) hours HYDROcodone-acetaminophen Take 1-2 tablets 28 tablet 0 12/3104/28/2014 (NORCO) 5-325 MG per by mouth every 4 tabletIndications: Primary hours as needed hyperparathyroidism (H) for moderate to severe pain ORDER FOR DMEIndications: Equipment being 2 Units 0 05/2604/28/2014 Edema ordered: compression stockings 15-20 mmhg [id number] Zzzquil, take 1 0 capsule daily as [...] the follow up visit. Vonnie Soler MD Vonnie Soler MD - 01/27/2014 10:14 AM CDT [facility] General Surgery Progress Note Assessment and Plan: Assessment: POD#1 s/p Procedure(s) with comments: PARATHYROIDECTOMY - Neck Exploration, Excision Parathyroid Adenoma, Pre Operative Sestimibi Injection, Rapid PTH Assay Doing well, calcium is great. Plan: Discharge today RTC with Dr. Soler in 1-3 weeks. RTC with Car Wash Supervisor in 4-6 weeks. Interval History: Feels good. [...] tolerated well.pt c/o headache and sore throat 10t ,refused norco ,IV dilaudid 0.2 mg given. patient requested to have forbes in until kids activities coach. Jose Rodriguez - 01/26/2014 12:33 PM CDT 24.8mCi Tc99m SESTAMIBI injected for parathyroid adenoma detection. Jose Rodriguez, [facility] med. documented in this encounter H&P Notes Holly [...] of Surgery/ Procedure: 12.30 pm Hospital/Surgical Facility: [facility] Primary Physician: Henry Dumont MD Type of [...] 2 times daily 180 tablet 3 ??? [id number] Zquil, take 1 capsule daily ??? ORDER [...] cardiovascular risks for perioperative complications such as (MD, PE, VFib and 3?? AV Block): No [...] evaluation report is provided to requesting physician. [facility] Preop Guidelines 2013 documented in this encounter ED Notes Aaliyah [...] Individualization/Patient-Specific Goal (Adult,OB,Behavioral The patient and/or their risk control representative will achieve their patient-specific goals related [...] Individualization/Patient-Specific Goal (Adult,OB,Behavioral The patient and/or their risk control representative will achieve their patient-specific goals related [...] PREOPERATIVE MEDICATIONS: Levaquin. SURGEON: Vonnie Soler MD MANAGER NICU: Sarah Agosto PA-C ESTIMATED BLOOD LOSS: 30 [...] athologist Signature Calcium 9.1 8.5 - 10.4 [facility] mg/dL [facility] Specimen Anatomical Collection Method Collection Time Receive d Time (Source) Location / / Volume Laterality Blood specimen 01/27/2014 6:10 AM 014 6:23 (specimen) CDT AM CDT Vonnie Soler MD LAB - BLOOD ORDERABLES Performing Organization Address City/State/ZIP Code Phon e Number [facility] [address], [place] [address] [facility] (ABNORMAL) Glucose by meter (01/27/2014 5:54 AM CDT) athologist Signature Glucose 109 (H) 60 - 99 POINT OF CARE mg/dL TEST, GLUCOSE Specimen Anatomical Collection Method Collection Time Receive d Time (Source) Location / / Volume Laterality 01/27/2014 5:54 AM 4 9:50 CDT PM CDT Vonnie Soler MD LAB - BEAKER POCT Performing Organization Address City/[facility]/ZIP Code Phon e Number FV POINT OF CARE TEST, GLUCOSE POINT OF CARE TEST, GLUCOSE Calcium (01/26/2014 9:08 PM CDT) P athologist Signature Calcium 9.5 8.5 - 10.4 [facility] mg/dL HOSPITAL LAB Specimen Anatomical Collection Method Collection Time Receive d Time (Source) Location / / Volume Laterality Blood specimen 01/26/2014 9:08 PM 014 9:18 (specimen) CDT PM CDT Vonnie Soler MD LAB - BLOOD ORDERABLES Performing Organization Address [facility] Code Phon e Number M [facility] [address] [place], [place] [address] [facility] (ABNORMAL) Glucose by meter (01/26/2014 6:34 PM CDT) P athologist Signature Glucose 155 (H) 60 - 99 POINT OF CARE mg/dL TEST, GLUCOSE Specimen Anatomical Collection Method Collection Time Receive d Time (Source) Location / / Volume Laterality 01/26/2014 6:34 PM 4 6:40 CDT PM CDT Vonnie Soler MD LAB - BEAKER POCT Performing Organization Address [facility]/ZIP Code Phon e Number FV POINT OF CARE TEST, GLUCOSE POINT OF CARE TEST, GLUCOSE Parathormone intact intraoperative (01/26/2014 3:08 PM CDT) Patholo gist Method Time Signature Parathyroid Hormone 36.8 12 - 72 [place] Intact pg/mL [facility]ITAL LAB Comment: CALLED MAGALYS Feliciano IN RHPACU ON AT 1606,VL Specimen Anatomical Collection Method Collection Time Receive d Time (Source) Location / / Volume Laterality 01/26/2014 3:08 PM 4 3:11 CDT PM CDT Vonnie Soler MD LAB - BLOOD ORDERABLES Performing Organization Address City/[facility]/ZIP Code Phon e Number M [place] [address], [place] [address] [facility] Parathormone intact intraoperative (01/26/2014 2:57 PM CDT) [facility] Method Time Signature Parathyroid Hormone 59.7 12 - 72 [place] Intact pg/mL [facility] LAB Comment: CALLED OT OR1 @1530 ON 01/26/14 BY RANDAL Specimen Anatomical Collection Method Collection Time Receive d Time (Source) Location / / Volume Laterality 01/26/2014 2:57 PM 4 3:00 CDT PM CDT Vonnie Soler MD LAB - BLOOD ORDERABLES Performing Organization Address City/[facility] Phon e Number [place] [address], [place] [address] [facility] (ABNORMAL) Parathormone intact intraoperative (01/26/2014 2:10 PM CDT) [facility] Signature Parathyroid 514 (H) 12 - 72 [place] Hormone Intact pg/mL [facility] LAB Comment: Called [place] THU[place] .[address] AT 1440T ON 01.26.14 BY BINH Crowell Specimen Anatomical Collection Method Collection Time Receive d Time (Source) Location / / Volume Laterality 01/26/2014 2:10 PM 4 2:13 CDT PM CDT Vonnie Soler MD LAB - BLOOD ORDERABLES Performing Organization Address City/[facility] Code Phon e Moriah [place] [address], [place] [address] [facility] Surgical pathology exam (01/26/2014 1:55 PM CDT) Component Value Ref Test Analysis Performed At [facility] Method Time Signature Copath Report Patient Name: LEE ANN HERNDON MR#: [id number] Specimen #: [id number] Collected: 01/26/2014 Received: 01/26/2014 Reported: 01/27/2014 14:35 [...] and B. ??Microscopic examination was performed. MGP/kd DT/01-27- CPT Codes: A: 93512-UF2, 81894-QG B: 53782-LX0, 76457-FW TESTING LAB LOCATION: [address] ??[address] COLLECTION SITE: Client: [facility] Location: SANDER (R) Specimen Anatomical Collection Method Collection Time Receive d Time (Source) Location / / Volume Laterality 01/26/2014 1:55 PM 4 2:05 CDT PM CDT Vonnie Soler MD LAB - BEAKER AP Performing Organization Address City/State/ZIP Code Phon e [...] Parathormone Intact Intraoperative (01/26/2014 11:20 AM CDT) [facility] Method Time Signature Parathyroid 498 (H) 12 - 72 [place] Hormone Intact pg/mL [facility] LAB Comment: Called to GERRY NEWTON IN SDS AT 1151T ON 4.2 8.14 BY BINH Crowell Specimen Anatomical Collection Method Collection Time Receive d Time (Source) Location / / Volume Laterality Blood specimen 01/26/2014 11:20 4 (specimen) AM CDT 11:22 AM CDT Vonnie Soler MD LAB - BLOOD ORDERABLES Performing Organization Address City/State/ZIP Code Phon e Number [place] [address], [place] [address] [facility] PATHOLOGY RESULT - HIM SCAN [...] DERABLES documented in this encounter Visit Diagnoses Not [...] Sun01/27/14 at 0325, Acetaminophen taken fron the Whitakers order Maximum acetaminophen dose from all sources = 75 mg/kg/day not to exceed 4 grams/day. bupivacaine (MARCAINE) Given 01/26/2014 3:12 PM 10 mLs Operative Site/Surgical 0.25 % injection CDT Site PRN, Starting on Sun01/26/14 at 1512, Intra-procedure calcium carbonate (OS-HAVEN 500 mg [place]. [place]) Given 01/27 5:34 AM CDT 1,000 [...] on Sun01/26/14 at 1719, Hold while on STRAND AND BINDER CONTROLLER. lactated ringers Rate/Dose Verify 01/27/2014 6:24 AM [...] shown in CDT. Scheduled Medication Order 01/25/2014 01/26/201401/2701/27/2014 calcium carbonate (OS-HAVEN 500 mg [place]. Ca) tablet 1,000 mg 1938 (Given - [...] 1300 (Given - Provider: Marsha Byrnes APRN CRNA) 500 mg, Intravenous, PRE-OP/PRE-PROCEDUR E, Starting Sun01/26/14 at 1113, For 1 dose, Administer at a rate of no greater than 100mL/hr, Indications: Surgical Prophylaxis, Pre-procedure sodium chloride (PF) 0.9% PF flush 3 mL (CANCELED) 1735 (Given - Provider: Imtiaz Sepulveda RN) 0048 (Not Given - Provider: Magalys anaya RN - Reason: IV Infusing)0903 (Not Given - Provider: Jay Martinez RN - Reason: End Administration) 3 mL, Intravenous, [...] (New Bag - Provider: Marsha Byrnes APRN CRNA)1455 (New Bag - Provider: Marsha Byrnes APRN CRNA) 1021 (Stopped - Provider: Jay Martinez RN - Comment: stopped by other, dc purpose) at 75-100 mL/hr, Intravenous, CONTINUOUS , UNLESS otherwise indicated., Pre- procedure, Starting Sun01/26/14 at 1130, Until Sun01/26/14 at 1546 1529 (Anesthesia Volume Adjustment - Provider: Marsha Byrnes, INDUSTRIAL RELATIONS MANAGER RETAIL LINK ANALYST) lactated ringers infusion (CANCELED) 173 3 (New Bag - Provider: Imtiaz Sepulveda, RN) 0308 (New Bag - Provider: Magalys Byers, [...] sources. acetaminophen (TYLENOL) tablet 325 mg (CANCELED) 0747 (Given - Provider: Jay Martinez, ERICKSON) 325 mg, Oral, EVERY 4 HOURS PRN, mild pa in, fever, Starting Sun01/27/14 at 0325, Acetaminophen taken fron the Whitakers order Maximum acetaminophen dose from all sources = 75 mg/kg/day not to exceed 4 grams/day. bupivacaine (MARCAINE) 0.25 % injection (CANCELED) 1512 (Given - Provider: Vonnie Soler MD) PRN, Starting Sun01/26/14 at 1512, Intra-procedure HYDROcodone-acetaminophen (NORCO) 5-325 MG per tablet 1 tablet 1 tablet, Oral, EVERY 4 HOURS PRN, moder ate to severe pain, Starting Sun01/26/14 at 1719, Hold while on STRAND AND BINDER CONTROLLER or with regular IV opioid dosing. Maximum acetaminophen dose from all sources= 75 mg/kg/day not to exceed 4 grams HYDROmorphone (DILAUDID) injection 0.2 mg (CANCELED) 2128 (Given - Provider: Imtiaz Sepulveda RN - Comment: IVP) 0.2 mg, Intravenous, EVERY 2 HOURS PRN, Starting 01/26/14 at 1719, Until Tu01/27/14 at 1339, severe pain, or if patient unable to take PO, Hold while on STRAND AND BINDER CONTROLLER. ondansetron (ZOFRAN) injection 4 mg (CANCELED) 0115 (Given - Provider: Magalys Byers, RN)0651 (Given - Provider: Magalys Byers, RN) 4 mg, Intravenous, EVERY 6 HOURS PRN, na usea, vomiting, for 2 Minutes, Starting Sun01/26/14 at 1719, This is Step 1 of nausea and vomiting protocol. If nausea not resolved in 15 minutes, go to Step 2 (Prochlorperazine). phenol-menthol (CEPASTAT) lozenge 1-2 lozenge (CANCELED) 1736 (Given - Provider: Imtiaz Sepulveda RN) 1-2 lozenge, Buccal, EVERY 1 HOUR PRN, s ore throat, Starting 01/26/14 at 1719, For sore throat without fever. documented in this encounter Care Teams Polymerization Supervisor Relationship Specialty Start Date End Date Julia White MD PCP - General Family Practice 12/18/13 11/01/14 [address] [place] [address] documented as of this encounter
--- OUTSIDE RECORDS SUMMARY | 2022-07-19 22:59 | XMS_ITS | Encounter Summary ---
:1940 Author Organization [facility] Address [facility]ly [facility] [place] [address] Care Team Providers Name Role Phone Julia White MD Primary Care Provider Encounter Details Date Type Department Care Team Description 02/04/2014 Orders Only [facility] Sarah Machado Hypocalcem ia (Primary Surgery Clinic SHIMA Simmons Dx) [place] [address] [facility] [address] [facility] [facility] [address] [place] [phone] Social History Tobacco Use Types Packs/Day Years Used Date Smoking Tobacco: Never Smokeless Tobacco: Never Alcohol Use Standard Drinks/Week Comments No 0 (1 standard drink = 0.6 oz pure alcoho l) Sex Assigned at Date Recorded Not on file documented as of this encounter Plan of Treatment Not on filedocumented as of this encounter Visit Diagnoses Diagnosis Hypocalcemia - Primary documented in this encounter Care Teams Charge Gang Weigher Relationship Specialty Start Date End Date Julia White MD PCP - General Family Practice 12/18/13 11/01/14 [address] [place], [place] [id number] documented as of this encounter
--- OUTSIDE RECORDS SUMMARY | 2022-07-19 22:59 | XMS_ITS | Encounter Summary ---
:1940 Author Organization [facility] Address [address] [facility] [place] [address] Care Team Providers Name Role Phone Julia White MD Primary Care Provider Reason for Visit (Routine) - Closed Specialty Diagnoses / Procedures Referred By Contact Refer red To Contact Radiology / Radiology. Diagnoses Epic Order, sb Reta, must be done with Spec CT per ordering physician, code per Vannessa, no thyroid meds or contrast studies Sh Nuclear M edicine Procedures NM PARATHY PL DUAL ISOTOPE [address] [place] [address] Phone: Referral ID Status Reason Start Date Expiration Date Visits Requ ested Visits Authorized [id number] Closed 01/01/2014 12/31/2014 1 1 Encounter Details Date Type Department Care Team Description 01/06/2014 [facility], Primary Encounter [facility] Imaging MD Vonnie hyperparathyroidism (H) [address] [place] [address] [phone] Social History Tobacco Use Types Packs/Day Years [...] DMEIndications: Edema ordered: compression stockings 15-20 mmhg [id number] Zzzquil, take 1 0 capsule daily as [...] (H) Primary hyperparathyroidism documented in this encounter Care Teams Commercial Pilot Relationship Specialty Start Date End Date Julia White MD PCP - General Family Practice 12/18/13 11/01/14 [address] [place] [address] documented as of this encounter
--- OUTSIDE RECORDS SUMMARY | 2022-07-19 22:59 | XMS_ITS | Encounter Summary ---
:1940 Author Organization [facility] Address [address] [facility] [place] [address] Care Team Providers Name Role Phone Julia White MD Primary Care Provider Reason for Visit (Routine) - Closed Specialty Diagnoses / Procedures Referred By Contact Refer red To Contact Radiology / Radiology. Diagnoses Epic Order, sb Reta, must be done with Spec CT per ordering physician, code per Vannessa, no thyroid meds or contrast studies Sh Nuclear M edicine Procedures NM INJECT [address] [place] [address] Phone: Referral ID Status Reason Start Date Expiration Date Visits Requ ested Visits Authorized [id number] Closed 01/01/2014 12/31/2014 1 1 Encounter Details Date Type Department Care Team Description 01/06/2014 Hospital Encounter [facility] Vonnie [facility] [address] [place] [address] [place], [place] [address] (Wo rk) Social History Tobacco Use Types [...] 1 tablet (5 mg) 30 tablet 3 12/15/201[address] 10/2013 (PRINIVIL,ZESTRIL) 5 MG by mouth daily tabletIndications: Hypertension ORDER FOR Equipment being 2 Units 0 05/26/2013 4 DMEIndications: Edema ordered: compression stockings 15-20 mmhg [id number] Zzzquil, take 1 0 capsule daily as [...] ORDERABLES documented in this encounter Visit Diagnoses Not on filedocumented in this encounter Administered Medications Inactive Administered Medications - up to 3 most recent administrations Medication Order MAR Action Action Date Dose Rate Site technetium sestamibi 1 UD Given 01/06/2014 9:59 AM 28.6 millicur ies per study (Tc99m MiBi) CDT radioisotope injection 25 susana Curie 25 millicurie, Intravenous, ONCE, On Tu01/06/14 at 1000, For 1 dose, Radioisotope, supplied by and administered by Nuclear Medicine. *HW* documented in this encounter Care Teams Web Programmer Relationship Specialty Start Date End Date Julia White MD PCP - General Family Practice 12/18/13 11/01/14 [address] [place] [address] documented as of this encounter
--- OUTSIDE RECORDS SUMMARY | 2022-07-19 23:00 | XMS_ITS | Encounter Summary ---
:1940 Author Organization [facility] Address [facility] [place] [address] Care Team Providers Name Role Phone Ranjith Hughes MD Primary Care Provider Reason for Visit Reason Onset Date Comments Orders 05/26/[address] chest to be whole body CT Encounter Details Date Type Department Care Team Description 05/26/2013 Telephone [facility] Ranjith Hughes, Kei (Wants CT chest Clinic Adri Reynoso MD to be whole body CT) [address] [place] [phone] Social History Tobacco Use Types Packs/Day Years Used Date Smoking Tobacco: Never Smokeless Tobacco: Never Alcohol Use Standard Drinks/Week Comments No 0 (1 standard drink = 0.6 oz pure alcoho l) Sex Assigned at Date Recorded Not on file documented as of this encounter Miscellaneous Notes Telephone Encounter - StewartMichelle - 05/27/2013 8:18 AM CDT Called patient and advised of Dr. Hughes's message below. Advised he would want colonoscopy and that she has that arranged already. Did already discuss this with Dr. Hughes before calling patient andhe does not feel full body necessary. Looked back and went over past scans and patient has not had full body scan in past. Stated it was 02/11/12 at ER. That was for abdomen and pelvis. We are rechecking pneumonia so Dr. Hughes does not feel appropriate for full body. Patient not happy that can not have full body scan, stated I don't care what you do then I am not going and hung-up on me. Discussedagain with Dr. Hughes and is standing by his decision to only do Chest CT and he states it is her de pression that is not doing well. Message handled by Nurse Triage Michelle William R.N. Telephone Encounter - Michelle William - 05/27/2013 8:08 AM CDT L/M to call. Colonoscopy set-up already for 05/30/13. Michelle William RN Telephone Encounter - Ranjith Hughes MD - 05/26/2013 7:37 PM CDT No for rectal bleeding it would not be a CT would be colonoscopy Telephone Encounter - Michelle William - 05/26/2013 1:50 PM CDT Called back and wants to add since appointment this am she had bloody mucous discharge from rectum. Michelle William RN Telephone Encounter - Michelle William - 05/26/2013 1:47 PM CDT Patient calls and states saw Dr. Hughes this am and ordered CT of chest. Wants order changed to be full body CT. Advised would send to Dr. Hughes to review and if he feels should be full body he willchange order. States had full body one year ago and wants same. Appointment tomorrow for wants orderchanged today. Message handled by Nurse Triage Michelle William R.N. documented in this encounter Plan of Treatment Not on filedocumented as of this encounter Visit Diagnoses Not on filedocumented in this encounter Care Teams Helicopter Technician Relationship Specialty Start Date End Date Ranjith Hughes MD PCP - General 07/11/02 12/17/13 [address] [place] [address] documented as of this encounter
--- OUTSIDE RECORDS SUMMARY | 2022-07-19 23:00 | XMS_ITS | Encounter Summary ---
:1940 Author Organization [place] Address [address] [facility] [place] [address] Care Team Providers Name Role Phone Ranjith Hughes MD Primary Care Provider Reason for Visit (Routine) - Closed Specialty Diagnoses / Procedures Referred By Contact Refer red To Contact Radiology Diagnoses CT CHEST W/ CONTRAST* Procedure Notes: Special screening for malignant neoplasms of other sites. Previous abnormal CT. Pneumonia. Rh Ct Scan Procedures RADIOLOGY [address] [place], [place] [address] Phone: Fax: Referral ID Status Reason Start Date Expiration Date Visits Requ ested Visits Authorized [id number] Closed 05/26/2013 05/26/2014 1 1 Encounter Details Date Type Department Care Team Description 05/27/2013 Hospital Encounter [facility] Brandi Hughes ial screening [facility] MD Ranjith for malignant [address] [facility] [address] neoplasms of other [place], [place] S sites [id number] [facility] [phone] [place] [address] Social History Tobacco Use Types Packs/Day Years Used Date Smoking Tobacco: Never Smokeless Tobacco: Never Alcohol Use Standard Drinks/Week Comments No 0 (1 standard drink = 0.6 oz pure alcoho l) Sex Assigned at Date Recorded Not on file documented as of this encounter Medications at Time of Discharge Medication Sig Dispensed Refills Start Date End Date citalopram (CELEXA) 10 Take 1 tablet (10 mg) 30 tablet 0 05/30/2013 MG tabletIndications: by mouth daily Mild major depression (H) ORDER FOR Equipment being 2 Units 0 05/26/2013 4 DMEIndications: Edema ordered: compression stockings 15-20 mmhg [id number] Zzzquil, take 1 capsule 0 06/28/2016 daily as needed SERTRALINE HCL PO Take by mouth daily 0 06/16/2013 documented as of this encounter Miscellaneous Notes Initial Assessments - Abstract, Provider - 05/28/2013 12:37 PM CDT documented in this encounter Plan of Treatment Not on filedocumented as of this encounter Procedures Procedure Name Priority Date/Time Associated Comments Diagnosis CT CHEST W CONTRAST Routine 05/27/2013 11:07 AM Special screen ing Results for this CDT for malignant procedure are in neoplasms of other the resul ts sites section. ISTAT CREATININE Routine 05/27/2013 10:24 AM Resu lts for this POCT CDT procedure are i n the results section. documented in this encounter Results CT Chest w Contrast (05/27/2013 11:07 AM CDT) Anatomical Region Laterality Modality Chest, SUBRAD CT BODY, UMP CT CHEST Comp uted Tomography Specimen (Source) Anatomical Collection Method Collection Time Re ceived Time Location / / Volume Laterality 05/27/2013 11:07 AM CDT Impressions 05/27/2013 3:39 PM CDT IMPRESSION: 1. No acute abnormality. 2. Previously noted consolidation at the medial left upper lobe has resolved in the interval since 2010. 3. Moderate to large hiatal hernia is st able containing the proximal stomach. 4. Hepatic and left renal cysts. LEONOR LORA MD Narrative 05/27/2013 3:[address] CHEST WITH CONTRAST May 27, 2013 1 1:07 AM HISTORY: Abnormal CT. Pneumonia. TECHNIQUE: Scans obtained from the apice s through the diaphragm with IV contrast. 91 mL of Optiray-320 IV inj ected. COMPARISON: Chest CT 01/12/2011. FINDINGS: No acute airspace disease. The previously noted focal consolidation along the medial left uppe r lobe has resolved since 2010. Mild atelectasis medial lung bases adjacent to a moderate to large hiatal hernia. This hiatal hernia contains the proximal stomach, and its configuration appears s table. There are no chest effusions identified. No acute mediastin al abnormality is seen. No enlarged lymph nodes by size criteria. T here are several hepatic cysts present. One of the larger lesions at the medial right liver is smaller measuring 3.9 cm, previously 7.5 cm, series 2 image 53. Left renal cyst is noted as well. Procedure Note Leonor Lora MD - 05/27/2013Forma tting of this note might be different from the original. CT CHEST WITH CONTRAST May 27, 2013 1 1:07 AM HISTORY: Abnormal CT. Pneumonia. TECHNIQUE: Scans obtained from the apice s through the diaphragm with IV contrast. 91 mL of Optiray-320 IV inj ected. COMPARISON: Chest CT 01/12/2011. FINDINGS: No acute airspace disease. The previously noted focal consolidation along the medial left uppe r lobe has resolved since 2010. Mild atelectasis medial lung bases adjacent to a moderate to large hiatal hernia. This hiatal hernia contains the proximal stomach, and its configuration appears s table. There are no chest effusions identified. No acute mediastin al abnormality is seen. No enlarged lymph nodes by size criteria. T here are several hepatic cysts present. One of the larger lesions at the medial right liver is smaller measuring 3.9 cm, previously 7.5 cm, series 2 image 53. Left renal cyst is noted as well. IMPRESSION IMPRESSION: 1. No acute abnormality. 2. Previously noted consolidation at the medial left upper lobe has resolved in the interval since 2010. 3. Moderate to large hiatal hernia is st able containing the proximal stomach. 4. Hepatic and left renal cysts. LEONOR LORA MD Ranjith Hughes MD IMG CT ORDERABLES Creatinine POCT (05/27/2013 10:24 AM CDT) P athologist Signature Creatinine 0.8 0.52 - POINT OF CARE 1.04 mg/dL TEST, HANDHELD METER GFR Estimate 71 >60 POINT OF CARE mL/min/1.7 TEST, HANDHELD m2 METER GFR Estimate If 86 >60 POINT OF CARE Black mL/min/1.7 TEST, HANDHELD m2 METER Specimen Anatomical Collection Method Collection Time Receive d Time (Source) Location / / Volume Laterality 05/27/2013 10:24 05/27/2013 AM CDT 10:30 AM CDT Ranjith Hughes MD LAB - [facility] POCT Performing Organization Address City/State/ZIP Code Phon e Number FV POINT OF CARE TEST, HANDHELD METER POINT OF CARE TEST, HANDHELD METER documented in this encounter Visit Diagnoses Diagnosis Special screening for malignant neoplasm s of other sites documented in this encounter Administered Medications Inactive Administered Medications - up to 3 most recent administrations Medication Order MAR Action Action Date Dose Rate Site ioversol (OPTIRAY 320) iv Given 05/27/2013 11:04 AM CDT 91 mLs solution 68% 100 mL 100 mL, Intravenous, ONCE, On Sun05/27/13 at 1100, For 1 dose sodium chloride 0.9 % BOLUS 1,000 mL New Bag 05/27/2013 11:04 AM CDT 70 mLs Intravenous, 1,000 mL, ONCE, On Sun05/27/13 at 1100, For 1 dose documented in this encounter Care Teams Locket Maker Relationship Specialty Start Date End Date Ranjith Hughes MD PCP - General 07/11/02 12/17/13 [address] [place] [address] documented as of this encounter
--- OUTSIDE RECORDS SUMMARY | 2022-07-19 23:00 | XMS_ITS | Encounter Summary ---
:1940 Author Organization [place] Address [facility] [place] [address] Care Team Providers Name Role Phone Ranjith Hughes MD Primary Care Provider Reason for Visit Reason Onset Date Comments Patient Request 01/06/2011 Encounter Details Date Type Department Care Team Description 01/06/2011 Telephone [facility] Ranjith Hughes MD Patient Request [place] [phone] (Wo rk) Social History Tobacco Use Types Packs/Day Years Used Date Smoking Tobacco: Never Alcohol Use Standard Drinks/Week Comments No 0 (1 standard drink = 0.6 oz pure alcoho l) Sex Assigned at Date Recorded Not on file documented as of this encounter Miscellaneous Notes Telephone Encounter - Sofia Pitts - 01/10/2011 9:47 AM CDT Pt calling back to request appt. For tomorrow because she is just to tired to come in today to be seen. Double booked pt in appt. For tomorrow- 01/11/11 per message below. Pt states she has been ill for the past month. Was unable to get in here, [facility] for her illness which only helped a little, and now she is very tired, body aches, headaches, cough, occasional wheezing, and SOB. Afebrile. Pt wants to see . Informed pt if her symptoms were to worsen with SOB, labored breathing, persistent cough she should go into the ER for evaluation and treatment. Pt verbalized understanding. Hellen Pitts R.N. Telephone Encounter - Ranjith Hughes - 01/06/2011 12:20 PM CDT Double bood Telephone Encounter - Eduardo Borja - 01/06/2011 10:49 AM CDT Lee Ann calls, on clindamycin and not feeling better. She asks for appointment with Dr. Hughes on Sunday or Sunday. Apologized and informed no openings. Offered to find alternate provider. Before I had a chance to look to see who had openings, she stated she did not want to see Dr. Logan he was charles in the hospital when I had knee replacement or Dr. Arechiga he is no good. She then said, never mind, I will just put up with it, and hung up the phone. Would Dr. Hughes please consider calling Lee Ann? [phone] (home) Or if OK to be double booked, we can do that. Thanks. Eduardo Borja, RN documented in this encounter Plan of Treatment Not on filedocumented as of this encounter Visit Diagnoses Not on filedocumented in this encounter Care Teams Senior Director Relationship Specialty Start Date End Date Ranjith Hughes MD PCP - General 07/11/02 12/17/13 [address] [place] [address] documented as of this encounter
--- OUTSIDE RECORDS SUMMARY | 2022-07-19 23:00 | XMS_ITS | Encounter Summary ---
:1940 Author Organization [place] Address [address] [place] [address]. [place] [address] Care Team Providers Name Role Phone Ranjith Hughes MD Primary Care Provider Reason for Visit Reason Comments Hospital F/U f/u from 01/18/11 pneumonia p t has sinus congestion from weather-allergies? Encounter Details Date Type Department Care Team Description 02/06/2011 Office Visit [facility] Lio Stone Pneumo jaime; [facility] MD Quan JOINT PAIN-LOWER LEG; [address] [facility] [id number] [place] [address] GENERAL OSTEOARTHROSIS; [place], [place] Edema; [id number] GERD (GASTROESOPHAGEAL REFLUX DISEASE) [phone] Social History Tobacco Use Types Packs/Day Years Used Date Smoking Tobacco: Never Smokeless Tobacco: Never Alcohol Use Standard Drinks/Week Comments No 0 (1 standard drink = 0.6 oz pure alcoho l) Sex Assigned at Date Recorded Not on file documented as of this encounter Last Filed Vital Signs Vital Sign Reading Time Taken Comments Blood Pressure 138/88 02/06/2011 11:15 AM CDT Pulse 85 02/06/2011 11:15 AM CDT Temperature 36.8 ??C (98.3 ??F) 02/06/2011 11:15 AM CDT Respiratory Rate 12 02/06/2011 11:15 AM CDT Oxygen Saturation 96% 02/06/2011 11:15 AM CDT Inhaled Oxygen Concentration - - Weight - - Height - - Body Mass Index - - documented in this encounter Patient Instructions Patient InstructionsLio Stone - 02/06/2011 11:39 AM CDT Come next time with no breakfast, water is just fine and we will check cholesterol In second half of March We'll talk about ct scan then documented in this encounter Progress Notes Lio Stone - 02/06/2011 11:37 AM CDT Patient complains of congestion with sore throat, nasal congestion and sinus pain. Some mucopurulantdischarge but no upper dental pain and no sustained fever. Duration less than one month. Feels like chest is much better after her bronchitis/pneumonia Has had sore throat for a few days, off antibiotics for two weeks . Has history of airborn allergy or asthma. No chest pain, diaphoresis, or sob. Non productive cough. TMs dull not*red, sinus tenderness none lungs clear, s1s2,soft abd,no distress, cyanosis or stridor. A:URI with pharyngitis P:fluids, antipyretics,rest and vit c as directed. Recheck PRN worsening or non-improvement over 5 days. Discussed signs of systemic or constutional illness. Will need follow up ct of chest in March for issues with upper lobe infiltrate rule out mass Fasting labs at her Yaritza visit documented in this encounter Nursing Notes 02/06/2011 11:15 AM CDT >> HILARIA LOPEZ Mon February 06, 2011 11:20 AM Patient presents with: Hospital F/U - f/u from 01/18/11 pneumonia Initial BP 140/90 Pulse 85 Temp(Src) 98.3 ??F (36.8 ??C) (Oral) SpO2 96% Estimated Body mass index is 34.54 kg/(m^2) as calculated from the following: Height as of 01/13/10: 5' 3(1.6 m). Weight as of 10/16/09: 195 lb(88.451 kg). BP completed using cuff size large r arm Health Maintenance Updated with Patient: Yes Hilaria Lopez CMA documented in this encounter Plan of Treatment Not on filedocumented as of this encounter Visit Diagnoses Diagnosis Pneumonia Pneumonia, organism unspecified JOINT PAIN-LOWER LEG Pain in joint, lower leg GENERAL OSTEOARTHROSIS Generalized osteoarthrosis, unspecified site Edema GERD (gastroesophageal reflux disease) Esophageal reflux documented in this encounter Care Teams Ribbing Machine Operator Relationship Specialty Start Date End Date Ranjith Hughes MD PCP - General 07/11/02 12/17/13 [address] [place] [address] documented as of this encounter
--- OUTSIDE RECORDS SUMMARY | 2022-07-19 23:00 | XMS_ITS | Encounter Summary ---
:1940 Author Organization [place] Address [facility] [place] [address] Care Team Providers Name Role Phone Ranjith Hughes MD Primary Care Provider Reason for Visit Reason Onset Date Comments ENAMEL SHADER - FOLLOW UP 03/03/2013 Encounter Details Date Type Department Care Team Description 03/03/2013 Telephone [facility] Demarco Ordaz ENAMEL SHADER - [facility] - [facility] PH[facility]IC[facility] [address] [place] [address] [place] [address] [phone] Social History Tobacco Use Types Packs/Day Years Used Date Smoking Tobacco: Never Smokeless Tobacco: Never Alcohol Use Standard Drinks/Week Comments No 0 (1 standard drink = 0.6 oz pure alcoho l) Sex Assigned at Date Recorded Not on file documented as of this encounter Miscellaneous Notes Telephone Encounter - Lakisha Patrick - 03/03/2013 1:48 PM CDT This [employer]PA [employer] member was seen in the emergency room at [facility] on 02/28/13. EPIC reviewed. Patient did not access primary care clinic prior to going to the Emergency Room. Patient had an admission complaint of Leg Cellulitis. Patient was discharged to home without services. Attempted to contact patient for ER follow up. No answer at this time. Has not made follow up apptwith Ranjith Hughes as recommended.at this time. Left message reminding her to do so and to call meif any questions about her cellulitis and or ED visit. Claude Patrick Rn FPA/JOSEG [employer] [facility] documented in this encounter Plan of Treatment Not on filedocumented as of this encounter Visit Diagnoses Not on filedocumented in this encounter Care Teams Automobile Radio Repairer Relationship Specialty Start Date End Date Ranjith Hughes MD PCP - General 07/11/02 3 [address] [place] [address] documented as of this encounter
--- OUTSIDE RECORDS SUMMARY | 2022-07-19 23:00 | XMS_ITS | Encounter Summary ---
:1940 Author Organization [place] Address [address] [place] [address] Care Team Providers Name Role Phone Ranjith Hughes MD Primary Care Provider Reason for Visit Reason Comments Other ankle pain, swelling, rednes s Encounter Details Date Type Department Care Team Description 02/28/2013 Emergency [facility] Leo Levine L [facility] Emergency Dep t cellulitis (Primary [address] [facility]) [facility] [phone] [address] [facility] [phone] [place], [place] [address] (Wo rk) Social History Tobacco Use Types Packs/Day Years Used Date Smoking Tobacco: Never Smokeless Tobacco: Never Alcohol Use Standard Drinks/Week Comments No 0 (1 standard drink = 0.6 oz pure alcoho l) Sex Assigned at Date Recorded Not on file documented as of this encounter Last Filed Vital Signs Vital Sign Reading Time Taken Comments Blood Pressure 161/86 02/28/2013 6:33 PM CDT Pulse 89 02/28/2013 6:33 PM CDT Temperature 36.6 ??C (97.8 ??F) 02/28/2013 6:33 PM CDT Respiratory Rate 18 02/28/2013 6:33 PM CDT Oxygen Saturation 98% 02/28/2013 6:33 PM CDT Inhaled Oxygen Concentration - - Weight - - Height - - Body Mass Index - - documented in this encounter Discharge Instructions Discharge InstructionsLeo Levine MD - 02/28/2013 7:35 PM CDT Discharge Instructions Cellulitis Cellulitis is an infection of the skin that occurs when bacteria enter the skin. Symptoms are generally redness, swelling, warmth and pain. Your infection appeared to be appropriate to treat at home with antibiotics. However, sometimes your infection may be worse than it seemed at first, or may worsenwith time. If you have new or worse symptoms, you may need to be seen again in the emergency department or by your primary doctor Return to the Emergency Department if: The redness, pain, or swelling gets a lot worse. If the red area was marked, return if it is red beyond the marked area. You are unable to get your antibiotics, or are vomiting them up or you can???t take them. You are feeling more ill, weak or lightheaded. You start to run a new fever (temperature >101) Anything else about the infection worries or concerns you. Treatment: Start your antibiotics right away, and take them as prescribed. Be sure to finish the whole prescription, even if you are better. Apply a heating pad, warm packs, or warm water soaks to the infected area for 15 minutes at a time,at least 3 times a day. Do not use a heating pad on your feet or legs if you have diabetes. Do not sleep with a heating pad on, since this can cause julien or skin injury. Rest your injured area for at least 1-2 days. After that you may start using your extremity again as long as there is not too much pain. Raise the injured area above the level of your heart as much as possible in the first 1-2 days. Acetaminophen (Tylenol or generic) or ibuprofen (Motrin, Advil, or generic) help reduce pain and fever and may help you feel more comfortable. Be sure to read and follow the package directions, and ask your doctor if you have questions. Follow-up with your doctor: Re-check in clinic within 2-3 days Remember that you can always come back [...] Date clindamycin (CLEOCIN) 300 Take 1 capsule by 28 capsule 0 03/07/2013 MG capsule mouth 4 times daily for 7 days. levofloxacin (LEVAQUIN) Take 1 tablet by 7 tablet 0 201105/26/2013 500 MG tabletIndications: mouth daily. Pneumonia sertraline (ZOLOFT) 50 MG Take 2 tablets by 60 tablet 2 05/26/2013 tabletIndications: mouth daily. Anxiety documented as of this encounter ED Notes Leo Levine MD - 02/28/2013 6:59 PM CDT History Chief Complaint: Other HPI Lee Ann Herndon is a 72 year old female who presents with left lower leg pain and rash. She notesseeing this 1-2 days ago in the absence of trauma or extensive travel. The pain is worse with walking or dorsiflexion of the foot, and is constant and dull. She denies fevers, chills, nausea or vomiting. She denies dyspnea or chest pain. Allergies: Allergies Allergen Reactions ??? Cephalosporins keflex ??? Clindamycin Diarrhea ??? Erythromycin ??? Ethanol zoloft ??? Penicillins ??? Risperidone ??? Sympathomimetics resperidol ??? Tetracyclines ??? Wellbutrin (Bupropion Hydrobromide) Medications: sertraline (ZOLOFT) 50 MG tablet levofloxacin (LEVAQUIN) 500 MG tablet Past Medical History: Past Medical History Diagnosis Date ??? Esophageal reflux ??? Depressive disorder, not elsewhere classified Past Surgical History: Past Surgical History Procedure Date ??? C nonspecific procedure s/p x 2, spAb x 1 ??? C nonspecific procedure s/p appendectomy ??? C nonspecific procedure s/p D&C after spAb ??? Surgical history of - hernia repair, rt inguinal ??? Surgical history of - knee replacement on the rt Social History: , spouse present in the ED Review of Systems Gen: no fevers or chills Skin: positive as per above All other systems reviewed and negative Physical Exam First Vitals: BP: 161/86 mmHg Pulse: 89 Temp: 97.8 ??F (36.6 ??C) Resp: 18 SpO2: 98 % Physical Exam Constitutional: Alert, attentive CV: 2+ DP and PT pulses, brisk distal cap refill MSK: area of tenderness to the left lower leg, anterolateral aspect where there is also faint erythema in a 5 cm diameter distribution Neurological: 5/5 strength to the DF, PF, EHL and FHL motor functions; sensation intact to the DP, SP, T, S and S distributions Skin: Skin is warm and dry. Area of erythema as per MSK Emergency Department Course Imaging: LLE US: negative for DVT. Radiology read. Emergency Department Course: I saw and examined the patient shortly after arrival to the ED bed. I explained my medical impression and plan for care, and the patient consented to this plan. On re-evaluation, the patient is comfortable. I reviewed the negative ultrasound and the plan for treatment of cellulitis. I emphasized the importance of PCP follow-up and the strict return precautionsprovided. The patient demonstrated understanding of and comfortability with this plan. Impression & Plan Medical Decision Making: This is a very pleasant 72 year old female who presented with painful and small area of erythema andlower leg pain. Given the faint erythema and small distribution without clear nidus for infection, US was performed to rule out DVT. This is most consistent with cellulitis. There is no rapid spread, pain out of proportion to exam, or other findings to suggest necrotizing infection. The patient has multiple drug allergies, making strep/mssa coverage potentially difficult. She does note, however, thatshe is not truly allergic to clindamycin, that she has had some diarrhea but no other difficulty tolerating or reactions. She would like to take this instead of bactrim. I recommended primary care follo w-up for recheck in 3-5 days. I advised strict return precautions for pain, fever, vomiting, or any other concerning symptoms. Diagnosis: 1. Cellulitis, left lower extremity Disposition: Home in improved condition Leo Levine MD [facility] Emergency Department Leo Levine MD 02/28/13 2126 Saad Bailey RN - 02/28/2013 6:32 PM CDT Left ankle pain, swelling and redness. Patient thinks that she has cellulitis. ABCDs intact. documented in this encounter Plan of Treatment Not on filedocumented as of this encounter Procedures Procedure Name Priority Date/Time Associated Diagnosis Comme nts US LOWER EXTREMITY STAT 02/28/2013 7:29 PM Res ults for this VENOUS DUPLEX LEFT CDT procedure are in the results section. documented in this encounter Results US Lower Extremity Venous Duplex Left (02/28/2013 7:29 PM CDT) Anatomical Region Laterality Modality Vascular, Thigh, Leg Other Specimen (Source) Anatomical Collection Method Collection Time Re ceived Time Location / / Volume Laterality 02/28/2013 7:29 PM CDT Impressions 03/01/2013 9:52 AM CDT IMPRESSION: No evidence of thrombus in the major veins of the left lower extremity. EDWIGE JIMENEZ MD Narrative 03/01/2013 9:52 AM CDT ULTRASOUND VENOUS LEFT LOWER EXTREMITY W ITH DOPPLER 02/28/2013 7:29 PM HISTORY: Left lower extremity pain and s welling. Evaluate for deep venous thrombus. COMPARISON: None. FINDINGS: Normal compressibility and unr emarkable Doppler waveform evaluation of the left common femoral, f emoral, popliteal and posterior tibial veins. Procedure Note Edwige Jimenez MD - 03/01/2013Fo rmatting of this note might be different from the original. ULTRASOUND VENOUS LEFT LOWER EXTREMITY W ITH DOPPLER 02/28/2013 7:29 PM HISTORY: Left lower extremity pain and s welling. Evaluate for deep venous thrombus. COMPARISON: None. FINDINGS: Normal compressibility and unr emarkable Doppler waveform evaluation of the left common femoral, f emoral, popliteal and posterior tibial veins. IMPRESSION IMPRESSION: No evidence of thrombus in t he major veins of the left lower extremity. EDWIGE JIMENEZ MD Leo Levine MD IMG US ORDERABLES documented in this encounter Visit Diagnoses Diagnosis Lower extremity cellulitis - Primary Cellulitis and abscess of leg, except fo ot documented in this encounter Care Teams Travel Pt Relationship Specialty Start Date End Date Ranjith Hughes MD PCP - General 07/11/02 12/17/[address] [place] [address] documented as of this encounter
--- OUTSIDE RECORDS SUMMARY | 2022-07-19 23:00 | XMS_ITS | Encounter Summary ---
:1940 Author Organization [place] Address [facility]0 [facility] [place] [address] Care Team Providers Name Role Phone Ranjith Hughes MD Primary Care Provider Reason for Visit Reason Comments Nausea, Vomiting, & Diarrhea Had the flu several weeks ago. Patient states she feels as if she never fully recove red. Hasn't felt well. Diarrhea and nausea since today. No actual vomiting but 'terrible nausea'. Upper abdominal discomfort and 'low abdominal cramping'. Encounter Details Date Type Department Care Team Description 02/11/2012 Emergency [facility] Marixa Walden, At electasis of left lung; [facility] Emergency Dep t Pneumonia; [address] [facility] [place] [id number] [phone] (Wo rk) Social History Tobacco Use Types Packs/Day Years Used Date Smoking Tobacco: Never Smokeless Tobacco: Never Alcohol Use Standard Drinks/Week Comments No 0 (1 standard drink = 0.6 oz pure alcoho l) Sex Assigned at Date Recorded Not on file documented as of this encounter Last Filed Vital Signs Vital Sign Reading Time Taken Comments Blood Pressure 119/74 02/11/2012 10:57 PM CDT Pulse 81 02/11/2012 10:57 PM CDT Temperature 36.8 ??C (98.3 ??F) 02/11/2012 7:26 PM CDT Respiratory Rate 18 02/11/2012 10:57 PM CDT Oxygen Saturation 92% 02/11/2012 10:57 PM CDT Inhaled Oxygen Concentration - - Weight - - Height - - Body Mass Index - - documented in this encounter Discharge Instructions Discharge InstructionsMarixa Walden MD - 02/11/2012 10:51 PM CDT Images from the original note were not included. Copy of your labs. Take all the antibiotics (levaquin). Followup Dr Hughes in 1-2 days. Come back if you feel worse. Reasons to return: chest pain, shortness of breath, nausea/vomiting, bleeding, confusion, blood in stools, dizziness, passing out, increasing headache, weakness, inability to walk. Also return if cough, difficulty breathing, nausea/vomiting, confusion, or any other problems. Please followup with your doctor in 1-3 days. Come back if not improving. PNEUMONIA (Adult) Pneumonia is an infection deep within the lung, in the small air sacs (alveoli). It may be due to a virus or bacteria and is usually treated with an antibiotic. Severe cases require treatment in the hospital. Milder cases can be treated at home. Symptoms usually start to improve during the first??2 days of treatment. HOME CARE: ?? Rest at home for the first 2-3 days or until you feel stronger. When resuming activity, don???t let yourself become overly tired. ?? Avoid exposure to cigarette smoke (yours or others). ?? You may use acetaminophen (Tylenol) or ibuprofen (Motrin, Advil) to control fever or pain, unlessanother medicine was prescribed. [NOTE: If you have chronic liver or kidney disease or ever had a stomach ulcer or GI bleeding, talk with your doctor before using these medicines.] (Aspirin should never be used in anyone under 18 years of age who is ill with a fever. It may cause severe liver damage.) ?? Your appetite may be poor so a light diet is fine. ?? Keep well hydrated by drinking 6-8 glasses of fluids per day (water, sport drinks such as Gatorade, sodas without caffeine, juices, tea, soup, etc.). This will help loosen secretions in the lung, making it easier for you to cough up the phlegm (sputum). If you also have heart or kidney disease, check with your doctor before you drink extra amounts of fluids. ?? Finish all antibiotic medicine prescribed, even if you are feeling better after a few days. FOLLOW UP with your doctor in the next 2-3 days (or as advised) to be sure you are responding properly to the medicine. [NOTE: If you are age 65 or older, or if you have chronic lung disease (asthma, emphysema or COPD), we recommend??the pneumococcal vaccination and a yearly??influenza??vaccination??(flu-shot) every . Ask your doctor about this.] [NOTE: If you had an X-ray or EKG (cardiogram), it will be reviewed by a specialist. You will be notified of any new findings that may affect your care.] GET PROMPT MEDICAL ATTENTION if any of the following occur: ?? Not getting better within the first 48 hours of treatment ?? Increasing shortness of breath or rapid breathing (over 25 breaths/minute) ?? Coughing up blood or increasing chest pain with breathing ?? Fever of 100.4??F (38??C) oral or higher, not better with fever medication ?? Increasing weakness, dizziness or fainting ?? Increasing thirst or dry mouth ?? Sinus pain, headache or a stiff neck ?? Chest pain not caused by coughing ?? [id number] [facility], [address] [place] [address], [place] [address]. All rights reserved. This information is not intended as a substitute for professional medical care. Always follow your healthcare professional's instructions.Home Back SP ATELECTASIS The lung is full of tiny air sacs that fill with each breath. These air sacs allow oxygen in the airyou breathe to enter the blood stream.??Atelectasis is a condition where some of the air sacs have closed so there is no air movement in that part of the lung.??This can cause a drop in oxygen levels.?? Atelectasis may be due to any of the following: ?? Prolonged bed rest ?? Pattern of shallow breathing ?? Heavy sedation ?? Obesity ?? A foreign object in one of the air passages ?? A tumor (benign or malignant) that presses on an air passage The treatment for atelectasis depends on the cause. HOME CARE 1. If your atelectasis is due to bed rest, sedation, shallow breathing or obesity, do the following to help increase air flow in your lungs and expand the air sacs again. ?? If you were given an incentive spirometer breathing device (???Triflow?? ), use it as directed. ?? Otherwise, take four very deep breaths every 1-2 hours while awake. As you exhale, purse your lips as if you if you were blowing up a balloon. (If possible, actually blow up a balloon or a rubber glove.) 2. If atelectasis was due to other causes, follow your doctor's advice for home care. FOLLOW UP with your doctor or as advised by our staff. RETURN PROMPTLY if you develop any of the following symptoms: ?? Shortness of breath ?? Chest pain that is worse with breathing ?? Cough with congestion,??colored or bloody sputum ?? Dizziness, weakness or fainting ?? Development or worsening of abdominal pain ?? Fever over 100.4??F (38.0??C) ?? [id number] [place] [address]. All rights reserved. This information is not intended as a substitute for professional medical care. Always follow your healthcare professional's instructions. documented in this encounter Medications at Time of Discharge Medication Sig Dispensed Refills Start Date End Date levofloxacin (LEVAQUIN) Take 1 tablet by 7 tablet 0 201102/18/2012 500 MG tablet mouth daily for 7 days. [place]-3 Fatty Acids 500 Take by mouth. Take 0 06/201102/14/2012 MG CAPS 1 capsule daily Omeprazole-Sodium Take 1 capsule by 30 capsule 0 07/05/2010 02/14/2012 Bicarbonate 20-1100 MG mouth daily. CAPSIndications: GERD (gastroesophageal reflux disease) sertraline (ZOLOFT) 50 MG Take 2 tablets by 60 tablet 5 06/13/2012 tabletIndications: mouth daily. Anxiety documented as of this encounter ED Notes Darnell Chaudhari RN - 02/11/2012 8:15 PM CDT Pt drinking contrast dye in anticipation of poss ct Marixa Walden MD - 02/11/2012 7:46 PM CDT History Chief Complaint: Nausea, Vomiting, & Diarrhea HPI Lee Ann Herndon is a 71 year old female who presents with nausea, vomiting, diarrhea. Patient hadthe flut several weeks ago and does not think that she has recovered. Very tired and fatigued. Thepatient states she ate some chicken last night for dinner and then had about 7 episodes of diarrhea starting at 0700 along with some nausea and vomiting as well all day today. She says she is also experiencing some abdominal pain which she currently rates as a 5-6/10 in severity. She says the abdominal pain is off and on, and when she gets the pain she starts feeling very nauseous. Left sided crampy discomfort that makes it hard to breathe. She reports a decrease in urine production today and some chills. No known fevers. No recent antibiotics. No blood in diarrhea. She notes she had the flu a few weeks ago and has not yet fully recovered. The patient denies fever,cough, chest pain, shortness of breath, difficulty breathing, leg swelling, blood in stool, changes in bowel or bladder habits, or any other complaints. Allergies: Penicillins Cephalosporins (keflex) Erythromycin Tetracyclines Sympathomimetics Ethanol (zoloft) Clindamycin Wellbutrin Risperidone Medications: Zoloft Align Past medical history: Esophageal reflux Depressive disorder GERD Anxiety CHF General osteoarthritis Obesity Past Surgical History: S/p x2 spAb x1 Appendectomy S/p D&C after spAb Right inguinal hernia repair Right knee replacement Family / Social History: No past pertinent family history. Marital Status: [2] Social History: Negative for tobacco use. Negative for alcohol use. Review of Systems Constitutional: Positive for chills. Negative for fever. Respiratory: Negative for cough and shortness of breath. Cardiovascular: Negative for chest pain and leg swelling. Gastrointestinal: Positive for nausea, vomiting, abdominal pain and diarrhea. Negative for blood in stool. Genitourinary: Negative for dysuria. All other systems reviewed and are negative. Subjective fevers and chills. No recent antibiotics. Fatigued. Decreased UOP. No dysuria. Diarrhea, loose stools. Nauseated, Dizzy, no syncope. Productive cough several weeks ago. SOB with exertion. Denies chest pain. Physical Exam First Vitals: BP: 155/94 mmHg Heart Rate: 96 Temp: 98.3 ??F (36.8 ??C) Resp: 20 SpO2: 96 % (normal) Physical Exam GEN: patient smiling, no distress, appears tired, at bedside HEAD: atraumatic, normocephalic EYES: pupils reactive (3plus to 2plus), extraocular muscles intact, conjunctivae normal ENT: TMs flat and white bilaterally, oropharynx normal with no erythema or exudate, mucus membranes dry, floor of mouth is soft, midface stable, nose mucosa pink with no exudate bilaterally NECK: no posterior midline tenderness, no meningeal signs, trachea midline, no carotid bruits or JVD RESPIRATORY: no tachypnea, breath sounds clear to auscultation (no rales, wheezes, rhonchi), chest wall nontender, normal phonation CVS: normal S1/S2, no murmurs/rubs/gallops ABDOMEN: soft, tender left upper quadrant around costal margins, no masses or organomegaly, no rebound, positive bowel sounds, obese, no peritoneal signs BACK: no costovertebral angle tenderness, no spinal tenderness EXTREMITIES: intact pulses x 4, full range of motion at joints, no clubbing/cyanosis/edema MUSCULOSKELETAL: no deformities SKIN: warm and dry, no acute rashes or ulceration, no erythema or fluctuance NEURO: GCS 15, cranial nerves intact. Motor- moves all 4 extremities with 5/5 strength, muscle bulk normal. Sensation- intact all dermatones to pinprick and light touch. Reflexes- DTRs 2plus. Coordination- romberg negative, normal tandem gait, no ataxia. Overall symmetrical exam HEME: no bruising or petechiae/contusions LYMPH: no lymphadenopathy Emergency Department Course Imaging: CT abd/pelvis: 1. Small left pleural effusion with atelectasis left lung base. 2. Moderate sized hiatal hernia. 3. Hepatic and left renal cysts. 4. Remainder of the scan is negative per radiology. Laboratory: CBC: PLT 118 low, o/w WNL (WBC 6.9, HGB 12.8) CMP: Calcium 11.4 high, o/w WNL (creatinine 0.74) Lipase: 48 (normal) UA: blood trace, mucous present, o/w negative Interventions: Morphine 2 mg IV NS 1 L IV Zofran 4 mg IV Ketorolac 30 mg IV Iohexol 25 mL PO (PO contrast) Iopamidol 100 mL IV (IV contrast) Emergency Department Course: The patient was examined here in the Emergency Department by myself, findings above. IV inserted and blood drawn. The patient was placed on continuous cardiac monitoring and pulse oximetry. The patient was sent for a CT abd/pelvis while in the emergency department, findings above. BP 119/74 Pulse 81 Temp(Src) 98.3 ??F (36.8 ??C) (Tympanic) Resp 18 SpO2 92% 9pm discussed results with patient and family. Incentive spirometer given. Patient is feeling better after above interventions. Rechecked the patient, findings and plan explained to the patient. Patient discharged home, status improved, with instructions regarding supportive care, medications, and reasons to return as well as the importance of close follow-up was reviewed. Patient given incentive spirometry instructions. Impression & Plan Differential diagnosis: appendicitis, intussusception, torsion of testicles or ovaries, UTI, obstruction, hepatitis, ileus, hernia, referred pain, strep pharyngitis, pyelonephritis, mono, GI bleeding, colitis, kidney stones, AAA, perforated viscus, cholecystitis, pancreatitis. [facility] Diagnoses: The patient has probable Pneumonia Blood cultures not indicated in this non-icu patient. Antibiotics were begun prior to admission based on a suspected diagnosis of simple community acquired pneumonia. Medical Decision Making: Initially she was complaining of abdominal pain, and nausea vomiting, and diarrhea. She was given Zofran in addition to hydration with saline and was feeling better after one dose of motrin. The CT scan of her abdomen did not show any acute intraabdominal pathology. However, it was noted that she had a telectasis with a new left base infiltrate. Disposition is to home. Instructions to patient: Copy of your labs. Take all the antibiotics (levaquin). Followup Dr Hughes in 1-2 days. Come back if you feel worse. Reasons to return: chest pain, shortness of breath, nausea/vomiting, bleeding, confusion, blood in stools, dizziness, passing out, increasing headache, weakness, inability to walk. Also return if cough, difficulty breathing, nausea/vomiting, confusion, or any other problems. Please followup with your doctor in 1-3 days. Come back if not improving. PNEUMONIA (Adult) Pneumonia is an infection deep within the lung, in the small air sacs (alveoli). It may be due to a virus or bacteria and is usually treated with an antibiotic. Severe cases require treatment in the hospital. Milder cases can be treated at home. Symptoms usually start to improve during the first 2 days of treatment. HOME CARE: Rest at home for the first 2-3 days or until you feel stronger. When resuming activity, don???t let yourself become overly tired. Avoid exposure to cigarette smoke (yours or others). You may use acetaminophen (Tylenol) or ibuprofen (Motrin, Advil) to control fever or pain, unless another medicine was prescribed. [NOTE: If you have chronic liver or kidney disease or ever had a stomach ulcer or GI bleeding, talk with your doctor before using these medicines.] (Aspirin should never be used in anyone under 18 years of age who is ill with a fever. It may cause severe liver damage.) Your appetite may be poor so a light diet is fine. Keep well hydrated by drinking 6-8 glasses of fluids per day (water, sport drinks such as Gatorade, sodas without caffeine, juices, tea, soup, etc.). This will help loosen secretions in the lung, making it easier for you to cough up the phlegm (sputum). If you also have heart or kidney disease, check with your doctor before you drink extra amounts of fluids. Finish all antibiotic medicine prescribed, even if you are feeling better after a few days. FOLLOW UP with your doctor in the next 2-3 days (or as advised) to be sure you are responding properly to the medicine. [NOTE: If you are age 65 or older, or if you have chronic lung disease (asthma, emphysema or COPD), we recommend the pneumococcal vaccination and a yearly influenza vaccination (flu-shot) every .Ask your doctor about this.] [NOTE: If you had an X-ray or EKG (cardiogram), it will be reviewed by a specialist. You will be notified of any new findings that may affect your care.] GET PROMPT MEDICAL ATTENTION if any of the following occur: Not getting better within the first 48 hours of treatment Increasing shortness of breath or rapid breathing (over 25 breaths/minute) Coughing up blood or increasing chest pain with breathing Fever of 100.4??F (38??C) oral or higher, not better with fever medication Increasing weakness, dizziness or fainting Increasing thirst or dry mouth Sinus pain, headache or a stiff neck Chest pain not caused by coughing ?? [id number] [place] [address]. All rights reserved. This information is not intended as a substitute for professional medical care. Always follow your healthcare professional's instructions.Home Back SP ATELECTASIS The lung is full of tiny air sacs that fill with each breath. These air sacs allow oxygen in the airyou breathe to enter the blood stream. Atelectasis is a condition where some of the air sacs have closed so there is no air movement in that part of the lung. This can cause a drop in oxygen levels. Atelectasis may be due to any of the following: Prolonged bed rest Pattern of shallow breathing Heavy sedation Obesity A foreign object in one of the air passages A tumor (benign or malignant) that presses on an air passage The treatment for atelectasis depends on the cause. HOME CARE 1. If your atelectasis is due to bed rest, sedation, shallow breathing or obesity, do the following to help increase air flow in your lungs and expand the air sacs again. If you were given an incentive spirometer breathing device (???Triflow?? ), use it as directed. Otherwise, take four very deep breaths every 1-2 hours while awake. As you exhale, purse your lips as if you if you were blowing up a balloon. (If possible, actually blow up a balloon or a rubber glove.) 2. If atelectasis was due to other causes, follow your doctor's advice for home care. FOLLOW UP with your doctor or as advised by our staff. RETURN PROMPTLY if you develop any of the following symptoms: Shortness of breath Chest pain that is worse with breathing Cough with congestion, colored or bloody sputum Dizziness, weakness or fainting Development or worsening of abdominal pain Fever over 100.4??F (38.0??C) ?? [id number] [facility], [address] [place] [id number]. All rights reserved. This information is not intended as a substitute for professional medical care. Always follow your healthcare professional's instructions. Diagnosis: 1. 518.0AS Atelectasis of left lung. 2. 486F Pneumonia. 3. 789.00AF Abdominal pain, resolved. I, Jonh Dillon, am serving as a scribe on 02/11/2012 at 7:46 PM to personally document services performed by Dr. Walden based on my observations and the provider's statements to me. Jonh Dillon 02/11/2012 [facility] EMERGENCY DEPART[facility] Marixa Walden MD 02/12/12 1652 Darnell Chaudhari RN - 02/11/2012 7:43 PM CDT Pt states several weeks ago I had the flu. Pt states it took 1 week after having the flu that she was not able to have BM. Pt concerned about possible ileus. Bijal Paez RN - 02/11/2012 7:34 PM CDT Patient is on Zoloft 100mg and 'Align' OTC. Bijal Paez RN - 02/11/2012 7:28 PM CDT Patient is alert. Skin is pink, warm and dry. Mucous membranes are moist. Diarrhea 6-7 times today, all of it prior to lunch. documented in this encounter Miscellaneous Notes Initial Assessments - Krystal Provider - 02/12/2012 8:35 PM CDT documented in this encounter Plan of Treatment Not on filedocumented as of this encounter Procedures Procedure Name Priority Date/Time Associated Comments Diagnosis CT ABDOMEN PELVIS W STAT 02/11/2012 9:47 PM Re sults for this CONTRAST CDT procedure are i n the results section. ROUTINE UA WITH STAT 02/11/2012 9:05 PM Result s for this MICROSCOPIC CDT procedure are i n the results section. CBC WITH PLATELETS & STAT 02/11/2012 7:55 PM R esults for this DIFFERENTIAL CDT procedure are i n the results section. LIPASE STAT 02/11/2012 7:55 PM Results f or this CDT procedure are i n the results section. COMPREHENSIVE STAT 02/11/2012 7:55 PM Results for this METABOLIC PANEL CDT procedure ar e in the results section. documented in this encounter Results CT Abdomen pelvis w contrast* (02/11/2012 9:47 PM CDT) Anatomical Region Laterality Modality Abdomen/Pelvis, SUBRAD CT BODY, UMP CT ABDOMEN PELVIS Computed Tomography Specimen (Source) Anatomical Collection Method Collection Time Re ceived Time Location / / Volume Laterality 02/11/2012 9:47 PM CDT Impressions 02/11/2012 10:[address] ABDOMEN/PELVIS WITH CONTRAST ??January 9:47:00 PM HISTORY: Left-sided abdominal pain. Prev ious appendectomy. TECHNIQUE: Scans obtained from the diaph ragm through the pelvis with oral and IV contrast. 100 ??mL Isovue ?? 370 ??injected. COMPARISON: CT chest 01/12/2011. FINDINGS: Small left pleural effusion wi th atelectasis left lung base. Moderate sized hiatal hernia. Multiple c ysts identified in the liver. The largest is in the right lobe and has decreased in size since 01/12/2011. Liver, spleen, and pancreas a re otherwise normal. Left renal cyst again noted. Both kidneys are otherwise normal. No abdominal or pelvic adenopathy. Colon an d small bowel are normal without evidence of obstruction. Pelvic phleboliths. Remainder of the scan is negative. IMPRESSION: 1. Small left pleural effusion with atel ectasis left lung base. 2. Moderate sized hiatal hernia. 3. Hepatic and left renal cysts. 4. Remainder of the scan is negative. Marixa Walden MD IMG CT ORDERABLES (ABNORMAL) UA with Microscopic (02/11/2012 9:05 PM CDT) Component Value Ref Test Analysis Performed At [facility] gist Range Method Time Signature Color Urine Light Yellow [facility] Appearance Urine Clear [facility] Glucose Urine Negative NEG [place] mg/dL [facility] Bilirubin Urine Negative NEG [facility] Ketones Urine Negative NEG [place] mg/dL [facility] Specific [place] 1.012 1.003 - [place] Urine 1.035 [facility] Blood Urine Trace (A) NEG [facility] pH Urine 6.0 5.0 - [place] 7.0 pH [facility] Protein Albumin Negative NEG [place] Urine mg/dL [facility] Urobilinogen Normal 0.0 - [place] mg/dL 2.0 [facility] Nitrite Urine Negative NEG [facility] Leukocyte Negative NEG [place] Esterase Urine [facility] Source Unspecified [facility] WBC Urine 1 0 - 2 [facility] RBC Urine <1 0 - 2 [facility] Mucous Urine Present (A) NEG /LPF [facility] Specimen Anatomical Collection Method Collection Time Receive d Time (Source) Location / / Volume Laterality Urine specimen URINE SPECIMEN 02/11/2012 9:05 PM 02/10 9:14 (specimen) OBTAINED BY CLEAN CDT PM CDT CATCH PROCEDURE / Unknown Marixa Walden MD LAB - URINE ORDERABLES Performing Organization Address City/[facility]/ZIP Code Phon e Number [address] [facility] Lipase (02/11/2012 7:55 PM CDT) P athologist Signature Lipase 48 20 - 250 [facility]/L [facility] Specimen Anatomical Collection Method Collection Time Receive d Time (Source) Location / / Volume Laterality Blood specimen 02/11/2012 7:55 PM 012 8:13 (specimen) CDT PM CDT Marixa Walden MD LAB - BLOOD ORDERABLES Performing Organization Address City/[facility] Phon e Number [facility] [address] [place], [place] [address] [facility] (ABNORMAL) Comprehensive metabolic panel (02/11/2012 7:55 PM CDT) [facility] Method Time Signature Sodium 140 133 - 144 [place] mmol/L [facility] Potassium 4.4 3.4 - 5.3 [place] mmol/L [facility] Chloride 106 94 - 109 [place] mmol/L [facility] Carbon Dioxide 24 20 - 32 [place] mmol/L [facility] Anion Gap 10 6 - 17 [place] mmol/L [facility] Glucose 89 60 - 99 [place] mg/dL [facility] Urea Nitrogen 21 7 - 30 [place] mg/dL [facility] Creatinine 0.74 0.52 - [facility] 1.04 mg/dL [facility] GFR Estimate 78 >60 [place] mL/min/1.[address] [place] [address] LAB GFR Estimate If >90 >60 [place] Black mL/min/1.[address] [place] [address] LAB Calcium 11.4 (H) 8.5 - 10.4 [place] mg/dL [facility] Bilirubin Total 0.6 0.2 - 1.3 [place] mg/dL [facility] Albumin 4.1 3.3 - 4.9 [place] g/dL [facility] Protein Total 7.0 6.8 - 8.8 [place] g/dL [facility] Alkaline 127 40 - 150 [place] Phosphatase U/L [facility] ALT 7 0 - 50 U/L [facility] AST 20 0 - 45 U/L [facility] Specimen Anatomical Collection Method Collection Time Receive d Time (Source) Location / / Volume Laterality Blood specimen 02/11/2012 7:55 PM 012 8:13 (specimen) CDT PM CDT Marixa Walden MD LAB - BLOOD ORDERABLES Performing Organization Address City/State/ZIP Code Phon e Number [facility] [address] [place], [place] [address] [facility] (ABNORMAL) CBC with platelets differential (02/11/2012 7:55 PM CDT) [facility] Method Time Signature WBC 6.9 4.0 - [facility] 11.0 [facility] 10e9/L [facility] RBC Count 4.25 3.8 - 5.2 [place] 10e12/L [facility] Hemoglobin 12.8 11.7 - [place] 15.7 g/dL [facility] Hematocrit 39.8 35.0 - [facility] 47.0 % [facility] MCV 94 78 - 100 [place] fl [facility] MCH 30.1 26.5 - [facility] 33.0 pg [facility] MCHC 32.2 31.5 - [place] 36.5 g/dL [facility] RDW 13.4 10.0 - [facility] 15.0 % [facility] Platelet Count 118 (L) 150 - 450 [place] 10e9L [facility] Diff Method Automated [facility] % Neutrophils 65.0 40 - 75 % [facility] % Lymphocytes 26.8 20 - 48 % [facility] % Monocytes 6.4 0 - 12 % [facility] % Eosinophils 1.4 0 - 6 % [facility] % Basophils 0.1 0 - 2 % [facility] % Immature 0.3 0 - 0.4 % [place] Granulocytes [facility] Absolute 4.5 1.6 - 8.3 [place] Neutrophil 10e9/L [facility] Absolute 1.9 0.8 - 5.3 [place] Lymphocytes 10e9[facility] Absolute 0.4 0.0 - 1.3 [place] Monocytes 10e9[facility] Absolute 0.1 0.0 - 0.7 [place] Eosinophils 10e9/L [facility] Absolute 0.0 0.0 - 0.2 [place] Basophils 10e9[facility] Abs Immature 0.0 0 - 0.03 [place] Granulocytes [address] [place] [address] LAB Specimen Anatomical Collection Method Collection Time Receive d Time (Source) Location / / Volume Laterality Blood specimen 02/11/2012 7:55 PM 012 8:13 (specimen) CDT PM CDT Marixa Walden MD LAB - BLOOD ORDERABLES Performing Organization Address City/State/ZIP Code Phon e Number [facility] [address], [place] [address] [facility] documented in this encounter Visit Diagnoses Diagnosis Atelectasis of left lung Pulmonary collapse Pneumonia Pneumonia, organism unspecified Abdominal pain Abdominal pain, unspecified site documented in this encounter Administered Medications Inactive Administered Medications - up to 3 most recent administrations Medication Order MAR Action Action Date Dose Rate Site iopamidol (ISOVUE-370) 76% Given 02/11/2012 9:39 PM CDT 100 mLs solution 100 mL 100 mL, Intravenous, ONCE, On 02/11/12 at 2130, For 1 dose ketorolac (TORADOL) injection 30 mg Given 02/11/2012 8:10 PM CDT 30 mg 30 mg, Intravenous, ONCE, On 02/11/12 at 2000, For 1 dose morphine 4 MG/ML injection Given 02/11/2012 8:03 PM CDT 2 mg Starting on 02/11/12 at 1948, For 1 dose, DARNELL CHAUDHARI: Cabinet Override ondansetron (ZOFRAN) 2 MG/ML injection Starting on 02/11/12 at 1948, For 1 dose, Gregory CHAUDHARI: Cabinet Override ondansetron (ZOFRAN) injection 4 mg Given 02/11/2012 8:03 PM CDT 4 mg 4 mg, Intravenous, ONCE, Administer over 2-5 Minutes, On 02/11/12 at 2100, For 1 dose sodium chloride 0.9 % BOLUS 1,000 New Bag 02/11/2012 8:04 PM C DT 1,000 mLs mL/hr mL Intravenous, 1,000 mL, ONCE, On 02/11/12 at 2000, For 1 dose documented in this encounter Active and Recently Administered Medications Times are shown in CDT. Scheduled Medication Order 02/09/2012 02/10/2012 02/11/2012 iopamidol (ISOVUE-370) 76% solution 100 mL (COMPLETED) 2138 (Given - Provider: Yanelis Morfin) 100 mL, Intravenous, ONCE, 02/11/12 at 2130, For 1 dose ketorolac (TORADOL) injection 30 mg (COMPLETED) 2009 (Given - Provider: Darnell Chaudhari RN) 30 mg, Intravenous, ONCE, 02/11/12 at 2000, For 1 dose ondansetron (ZOFRAN) injection 4 mg (COMPLETED) 2002 (Given - Provider: Darnell Chaudhari RN) 4 mg, Intravenous, ONCE, for 2 Minutes, 02/11/12 at 2100, For 1 dose sodium chloride 0.9 % BOLUS 1,000 mL (COMPLETED) 2003 (New Bag - Provider: Darnell Chaudhari, RN)2099 (Stopped - Provider: Darnell Chaudhari RN) Intravenous, 1,000 mL, ONCE, [place] 02/11/12 at 2000, For 1 dose No Frequency Medication Order 02/09/2012 02/10/2012 02/11/2012 morphine 4 MG/ML injection (COMPLETED) 2002 (Given - Provider: Darnell Chaudhari, ERICKSON) Starting 02/11/12 at 1948, For 1 dose, DARNELL CHAUDHARI: Warren et Antolin documented in this encounter Care Teams Birth Attendant Relationship Specialty Start Date End Date Ranjith Hughes MD PCP - General 07/11/02 12/17/13 [address] [place] [address] documented as of this encounter
--- OUTSIDE RECORDS SUMMARY | 2022-07-19 23:00 | XMS_ITS | Encounter Summary ---
:1940 Author Organization [facility] Address [address] [place] [address]. 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 02/12/2012 ER follow up Encounter Details Date Type Department Care Team Description 02/12/2012 Telephone [facility] Nimo Robles - FOLLOW [facility] - CARE (ER follow up) MANAGEMENT DEPT [facility] [address] [address] Social History Tobacco Use Types Packs/Day Years Used Date Smoking Tobacco: Never Smokeless Tobacco: Never Alcohol Use Standard Drinks/Week Comments No 0 (1 standard drink = 0.6 oz pure alcoho l) Sex Assigned at Date Recorded Not on file documented as of this encounter Miscellaneous Notes Telephone Encounter - Carlee Box - 02/12/2012 2:58 PM CDT Lee Ann [place] [phone] (home) This [employer] member was seen in the emergency room at [facility] on 02-11-12. EPIC reviewed. Patient did not access primary care clinic prior to going to the Emergency Room. Patient had an admission complaint of a knee injury. Patient was discharged to home without services. Contacted patient for ER follow up. Patient reports understanding of discharge medications and instructions. Explained the benefits of finishing out the antibiotic as prescribed. Patient aware to callpcp if any problems arise with prescribed medications. Has made follow up appt with Ranjith Hughes MD as recommended on 02-14-12. Information forwarded to case finisher for review. Carlee Box LPN 2:56 PM February 12, 2012 [facility]. (Phone number: [phone]) documented in this encounter Plan of Treatment Not on filedocumented as of this encounter Visit Diagnoses Not on filedocumented in this encounter Care Teams Commercial Field Inspector Relationship Specialty Start Date End Date Ranjith Hughes MD PCP - General 07/11/02 12/17/13 [address] [place] [address] documented as of this encounter
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
--- OUTSIDE RECORDS SUMMARY | 2022-07-19 23:00 | XMS_ITS | Encounter Summary ---
:1940 Author Organization [facility] Address [facility] [place] [address] Care Team Providers Name Role Phone Ranjith Hughes MD Primary Care Provider Reason for Visit Reason Onset Date Comments Colonoscopy 07/17/2011 Encounter Details Date Type Department Care Team Description 07/17/2011 Telephone [facility] Julia White MD Colonoscopy [facility] [id number] [place] [id number] [place] [id number] [place] [address] [phone] Social History Tobacco Use Types Packs/Day Years Used Date Smoking Tobacco: Never Smokeless Tobacco: Never Alcohol Use Standard Drinks/Week Comments No 0 (1 standard drink = 0.6 oz pure alcoho l) Sex Assigned at Date Recorded Not on file documented as of this encounter Miscellaneous Notes Telephone Encounter - Michelle William - 07/17/2011 2:08 PM CDT Spoke with patient and tried to encourage colonoscopy and mammogram. States refuses. Wants to know procedure on how colonoscopy is cleaned. Wants us to call and find this information out if we want herto do the test. Then hung-up on me. Message handled by Nurse Triage Michelle William R.N. Telephone Encounter - Julia Figueroa MD - 07/17/2011 12:53 PM CDT Patient is overdue for colonoscopy. Colonoscopies are recommended starting at age 50. [address] order if patient is agreeable This is important for colon cancer screening documented in this encounter Plan of Treatment Not on filedocumented as of this encounter Visit Diagnoses Not on filedocumented in this encounter Care Teams Supervisor Powder [employer] Canning Relationship Specialty Start Date End Date Ranjith Hughes MD PCP - General 07/11/02 12/17/13 [address] [place] [address] documented as of this encounter
--- OUTSIDE RECORDS SUMMARY | 2022-07-19 23:00 | XMS_ITS | Encounter Summary ---
:1940 Author Organization [facility] Address [address] [place] [address]. [place] [address] Care Team Providers Name Role Phone Ranjith Hughes MD Primary Care Provider Reason for Visit Reason Onset Date Comments Refill Request 06/13/2012 Zoloft Encounter Details Date Type Department Care Team Description 06/13/[address] [facility] Ranjith Hughes MD Refill Request (Zoloft) [address] [phone] Social History Tobacco Use Types Packs/Day Years Used Date Smoking Tobacco: Never Smokeless Tobacco: Never Alcohol Use Standard Drinks/Week Comments No 0 (1 standard drink = 0.6 oz pure alcoho l) Sex Assigned at Date Recorded Not on file documented as of this encounter Miscellaneous Notes Telephone Encounter - Davontemary louMichelle - 06/13/2012 11:23 AM CDT DEPRESSION/ANXIETY Last Office Visit R/T Diagnosis: 02/14/12 Provider Notes:recheck x [address] recheck DX: Anxiety SSRI: Zoloft OV: 6mths or as indicated in chart. If <18 yrs of age q 3 mths or as indicated in chart Should have OV 1-2 mths after initial RX ANXIETY: follow up q 12 mths Tests: PHQ-9 q 6 mths If PHQ9 has been done once in the last 6 mths, and if score is 5 or less, OK to refill for 12 mths ANXIETY: if SSRI for anxiety, PHQ9 is not needed Max Refills: 6mths Medication approved per standing orders. Message handled by Nurse Triage Michelle William R.N. documented in this encounter Plan of Treatment Not on filedocumented as of this encounter Visit Diagnoses Diagnosis Anxiety - Primary Anxiety state, unspecified documented in this encounter Care Teams Advanced Practice Nurse Relationship Specialty Start Date End Date Ranjith Hughes MD PCP - General 07/11/02 12/17/13 [address] [place] [address] documented as of this encounter
--- OUTSIDE RECORDS SUMMARY | 2022-07-19 23:00 | XMS_ITS | Encounter Summary ---
:1940 Author Organization [facility] Address [address] [place] [address] Care Team Providers Name Role Phone Ranjith Hughes MD Primary Care Provider Encounter Details Date Type Department Care Team Description 01/12/2011 Results Only [facility] Saud Gibbs MD Hospital Results [facility] [address] [facility] [address] [place] [address] (Wo rk) Social History Tobacco Use Types Packs/Day Years Used Date Smoking Tobacco: Never Alcohol Use Standard Drinks/Week Comments No 0 (1 standard drink = 0.6 oz pure alcoho l) Sex Assigned at Date Recorded Not on file documented as of this encounter Plan of Treatment Not on filedocumented as of this encounter Procedures Procedure Name Priority Date/Time Associated Diagnosis Comme nts CT CHEST W CONTRAST Routine 01/12/2011 9:22 AM Re sults for this CDT procedure are i n the results section. documented in this encounter Results CT Chest w contrast* (01/12/2011 9:22 AM CDT) Anatomical Region Laterality Modality Chest, SUBRAD CT BODY, UMP CT CHEST Comp uted Tomography Specimen (Source) Anatomical Collection Method Collection Time Re ceived Time Location / / Volume Laterality 01/12/2011 9:22 AM CDT Impressions 01/12/2011 9:[address] CHEST WITH CONTRAST Jan 12, 2011 9:22 :00 AM HISTORY: Chest pain. Shortness of breath . Cough. Rule out PE. TECHNIQUE: Scans obtained from the apice s through the diaphragm with IV contrast. 80 ??mL of Optiray 350 ??in jected. COMPARISON: None. FINDINGS: Pulmonary arteries are well op acified and appear patent without evidence of pulmonary embolus. T iny left pleural effusion. Multiple mildly prominent lymph nodes in the upper mediastinum. No hilar adenopathy identified. Nodular are a of infiltration and probable atelectasis in the left upper lobe anter iorly and medially. This could be secondary to pneumonitis, however, an underlying neoplasm in this region cannot be excluded. Followup scan is recommended for further evaluation. Scattered fibrotic changes i n the left lower lobe with probable mild bronchiectasis in both low er lobes. Moderate hiatal hernia. Large cyst in the right lobe of the liver with several smaller cysts in the remainder of the liver. Sma ll cyst in the left kidney. Upper abdomen is otherwise negative. Deg enerative changes thoracic spine. Remainder of the scan is negative . IMPRESSION: 1. No evidence for pulmonary embolus. 2. Tiny left pleural effusion. 3. Nodular infiltration and atelectasis in the left upper lobe which could be secondary to pneumonitis. Under lying neoplasm cannot be excluded. Followup scan recommended. 4. Multiple mildly prominent lymph nodes in the upper mediastinum. 5. Scattered fibrotic changes in the lef t lower lobe with mild bronchiectasis in the lower lobes. 6. Moderate hiatal hernia. 7. Hepatic and left renal cysts. Saud Gibbs MD IMG CT ORDERABLES documented in this encounter Visit Diagnoses Not on filedocumented in this encounter Care Teams Us Customs And Border Officer Relationship Specialty Start Date End Date Ranjith Hughes MD PCP - General 07/11/02 12/17/13 [address] [place] [address] documented as of this encounter
--- OUTSIDE RECORDS SUMMARY | 2022-07-19 23:00 | XMS_ITS | Encounter Summary ---
:1940 Author Organization [facility] Address [address] [place] [address]. [place] [address] Care Team Providers Name Role Phone Ranjith Hughes MD Primary Care Provider Reason for Visit Reason Onset Date Comments Refill Request 06/17/2013 Encounter Details Date Type Department Care Team Description 06/16/2013 Refill [facility] Ranjith Hughes MD Refill Request [place] [address] [phone] Social History Tobacco Use Types Packs/Day Years Used Date Smoking Tobacco: Never Smokeless Tobacco: Never Alcohol Use Standard Drinks/Week Comments No 0 (1 standard drink = 0.6 oz pure alcoho l) Sex Assigned at Date Recorded Not on file documented as of this encounter Miscellaneous Notes Telephone Encounter - Radha Jones - 06/17/2013 9:11 AM CDT msg sent notifying pt. Telephone Encounter - Radha Jones - 06/16/2013 9:23 AM CDT Pt calling. She states that she was recently started on Citalopram and was instructed to call PCP and let him know how this was working for her. Pt states that it gives her bad, disturbing dreams and would like to go back on Sertraline 50 mg BID as this worked for her in the past w/o adverse effects. T'd up, please approve or deny. Please let pt know when addressed via [facility]. Message handled by Nurse Rachel Peres RN documented in this encounter Plan of Treatment Not on filedocumented as of this encounter Visit Diagnoses Diagnosis Mild major depression (H) - Primary Major depressive disorder, single episod e, mild Anxiety Anxiety state, unspecified documented in this encounter Care Teams Subway Conductor Relationship Specialty Start Date End Date Ranjith Hughes MD PCP - General 07/11/02 12/17/13 [address] [place] [address] documented as of this encounter
--- OUTSIDE RECORDS SUMMARY | 2022-07-19 23:00 | XMS_ITS | Encounter Summary ---
:1940 Author Organization [place] Address [facility] [place] [address] Care Team Providers Name Role Phone Ranjith Boo MD Primary Care Provider Reason for Visit Auth/Cert - Closed Specialty Diagnoses / Procedures Referred By Contact Refer red To Contact Gastroenterology Diagnoses Screening Rh Endoscopy Procedures COLONOSCOPY [address] [place] [address] Phone: Fax: Referral ID Status Reason Start Date Expiration Date Visits Requ ested Visits Authorized [id number] Closed 1 1 Encounter Details Date Type Department Care Team Description 05/30/2013 Hospital Encounter [facility] Maryam Cain , Endoscopy Ronan BATISTA [address] [place], [place] GASTROINTESTINAL [id number] [facility] [phone] [place] [address] (Wo rk) Social History Tobacco Use Types Packs/Day Years Used Date Smoking Tobacco: Never Smokeless Tobacco: Never Alcohol Use Standard Drinks/Week Comments No 0 (1 standard drink = 0.6 oz pure alcoho l) Sex Assigned at Date Recorded Not on file documented as of this encounter Last Filed Vital Signs Vital Sign Reading Time Taken Comments Blood Pressure 142/86 05/30/2013 11:30 AM CDT Pulse - - Temperature - - Respiratory Rate 12 05/30/2013 11:30 AM CDT Oxygen Saturation 94% 05/30/2013 11:30 AM CDT Inhaled Oxygen Concentration - - Weight - - Height - - Body Mass Index - - documented in this encounter Discharge Instructions Discharge InstructionsThomas Jo RN - 05/30/2013 11:18 AM CDT Images from the original note [...] the chance of preventing its spread. ?? [phone] Tram Garcia, [address] [place] [address], [place] [address]. All rights reserved. This information is not intended as a substitute for professional medical care. Always follow your healthcare professional's instructions. documented in this encounter Medications at Time of Discharge Medication Sig Dispensed Refills Start Date End Date SERTRALINE HCL PO Take by mouth daily 0 06/16/2013 ORDER FOR Equipment being 2 Units 0 05/26/2013 4 DMEIndications: Edema ordered: compression stockings 15-20 mmhg [id number] Zzzquil, take 1 capsule 0 06/28/2016 daily as needed documented as of this encounter Progress Notes Maryam Cain MD - 06/04/2013 9:54 AM CDT Quick Note: Pt informed of results. Will need redo in 3 yr. documented in this encounter H&P Notes Maryam Cain MD - 05/30/2013 10:17 AM CDT Pre-Endoscopy History and Physical Lee Ann Herndon Date of : 1940 Age: [age] year old Date of Procedure: 05/30/2013 Primary care provider: Ranjith Boo Type of Endoscopy: Colonoscopy with possible biopsy, possible polypectomy Reason for Procedure: screen Type of Anesthesia Anticipated: Conscious Sedation HPI: Lee Ann is a 73 year old female who will be undergoing [...] history of anesthesia complications or bleeding disorders. Patient Active Problem List Diagnosis ??? CONGESTIVE HEART FAILURE, UNSPEC ??? EDEMA ??? JOINT PAIN-LOWER LEG ??? GENERAL OSTEOARTHROSIS ??? Anxiety ??? Mild Major Depression ??? CARDIOVASCULAR SCREENING; LDL GOAL LESS THAN 160 ??? GERD (GASTROESOPHAGEAL REFLUX DISEASE) ??? Obesity ??? Health Nursing Home Past Medical History Diagnosis Date ??? Esophageal reflux ??? Depressive disorder, not elsewhere classified ??? Hiatal hernia 2010 Past Surgical History Procedure Date ??? C nonspecific procedure s/p x 2, spAb x 1 ??? C nonspecific procedure s/p appendectomy ??? C nonspecific procedure s/p D&C after spAb ??? Surgical history of - hernia repair, rt inguinal ??? Surgical history of - knee replacement on the rt History Substance Use Topics ??? Smoking status: Never Smoker ??? Smokeless tobacco: Never Used ??? Alcohol Use: No History reviewed. No pertinent family history. Prior to Admission medications Medication Sig Start Date End Date Taking? Authorizing Provider SERTRALINE HCL PO Take by mouth daily Yes Reported, Patient [id number] Zquil, take 1 capsule daily Reported, Patient ORDER FOR DME Equipment being ordered: compression stockings 15-20 mmhg 05/26/13 Ranjith Boo MD Allergies Allergen Reactions ??? Cephalosporins keflex ??? Clindamycin Diarrhea ??? Erythromycin ??? Ethanol zoloft ??? Penicillins ??? Risperidone ??? Sympathomimetics resperidol ??? Tetracyclines ??? Wellbutrin (Bupropion Hydrobromide) REVIEW OF SYSTEMS: 5 point ROS negative except as noted above in HPI, including Gen., Resp., CV, GI & system review. PHYSICAL EXAM: There were no vitals taken for this visit. Estimated Body mass index is 42.63 kg/(m^2) as calculatedfrom the following: Height as of 05/26/13: 5' 2(1.575 m). Weight as of 05/26/13: 233 lb 1.6 oz(105.733 kg). GENERAL APPEARANCE: alert, and oriented MENTAL STATUS: alert AIRWAY EXAM: Mallampatti Class II (visualization of the soft palate, fauces, and uvula) RESP: lungs clear to auscultation - no rales, rhonchi or wheezes CV: regular rates and rhythm DIAGNOSTICS: Not indicated IMPRESSION ASA Class 2 - Mild systemic disease PLAN: Plan for Colonoscopy with possible biopsy, possible polypectomy. We discussed the risks, benefits and alternatives and the patient wished to proceed. The above has been forwarded to the consulting provider. Signed Electronically by: Maryam Cain May 30, 2013 documented in this encounter Plan of Treatment Not on filedocumented as of this encounter Procedures Procedure Name Priority Date/Time Associated Comments Diagnosis SURGICAL PATHOLOGY Routine 05/30/2013 10:49 Resul ts for this EXAM AM CDT procedure are i n the results section. COLONOSCOPY, 05/30/2013 10:20 polyps FLEXIBLE, WITH LESION AM CDT REMOVAL USING SNARE COLONOSCOPY Routine 05/30/2013 10:19 Results for this AM CDT procedure are i n the results section. documented in this encounter Results Surgical pathology exam (05/30/2013 10:49 AM CDT) Component Value Ref Test Analysis Performed At [facility] gist Range Method Time Signature Copath Report Patient Name: LEE ANN HERNDON MR#: [id number] Specimen #: [id number] Collected: 05/30/2013 Received: 05/30/2013 Reported: 06/03/2013 16:57 Ordering Phy(s): MARYAM CAIN Additional Phy(s): RANJIHT BOO SPECIMEN(S): Sigmoid colon polyp FINAL DIAGNOSIS: Colon, sigmoid, biopsies - ? 1. ??Tubulovillous adenoma (one). ? 2. ??Tubular adenoma (one). Electronically signed out by: Chadd Flowers M.D. CLINICAL HISTORY: Bloody stools. ??Polyp. GROSS: The specimen, labeled polyps x2, sigmoid colon, consists o f two pink-dave polypoid soft tissue portions measuring 0.4 and 0.6 cm in greatest dimension. ??The base of the larger polyp is inked black. ??The larger polyp is bisected and the specimen is entirely submit shahida in one cassette. ??SA/k MICROSCOPIC: Sections show one tubulovillous adenoma and one tubular kelly trey. ??There is no evidence of high grade dysplasia or malignancy. MGP/betty 06-03-13 TESTING LAB LOCATION: [address] ??[address] COLLECTION SITE: Client: [facility] Location: MIRIAM (R) Specimen Anatomical Collection Method Collection Time Receive d Time (Source) Location / / Volume Laterality 05/30/2013 10:49 05/30/2013 AM CDT 11:30 AM CDT Maryam CHAIREZ - ANY [place] Performing Organization Address City/State/ZIP Code Phon e Number COPATH COLONOSCOPY (05/30/2013 10:19 AM CDT) [facility] gist Method Time Signature COLONOSCOPY [facility] RAD IOLOGY RESULTS Patient Name: Lee Ann ruiz ?Procedure Date: 05/30/2013 10:19:06 AM ? Date of : 1940 ?Admit Type: Outpatient ? Age: 73 ? Gender: Female ? Attending MD: Maryam Riley MD ? Procedure: ?Colonoscopy Indications: ?Screening for colorec amy malignant neoplasm Providers: ?Maryam Cain MD Referring MD: ? Ranjith Boo MD Medicines: ?Midazolam 2 mg IV, Fentanyl 100 micrograms IV Complications: ?No immediate complications Procedure: ?Pre-Anesthesia Assessment: ?- Prior to the [...] were verified by the physician ?in the procedure room. Mental Status Examination: ?alert and oriented. Airway Examination: normal ?oropharyngeal airway and neck mobility. Respiratory ?Examination: clear to auscultation. CV Examination: ?normal. Prophylactic Antibiotics: The patient does ?not require prophylactic antibiotics. Prior ?Anticoagulants: The patient has taken no previous ?anticoagulant or antiplatelet agents. ASA Grade ?Assessment: II - A patient with mild systemic ?disease. After reviewing the risks and benefits, ?the patient was deemed in satisfactory condition to ?undergo the procedure. The anesthesia plan was to ?use moderate sedation / analgesia (conscious ?sedation). Immediately prior to administration of ?medications, the patient was re-assessed for ?adequacy to receive sedatives. The heart rate, ?respiratory rate, oxygen saturations, blood ?pressure, adequacy of pulmonary ventilation, and ?response to care were monitored throughout the ?procedure. The physical status of the patient was ?re-assessed after the procedure. ?After obtaining informed consent, the colonoscope ?was passed under direct vision. Throughout the ?procedure, the patient's blood pressure, pulse, and ?oxygen saturations were monitored continuously. The ?Colonoscope was introduced through the anus and ?advanced to the cecum, identified by appendiceal ?orifice & ileocecal valve. The colonoscopy was ?performed without difficulty. The patient tolerated ?the procedure well. The quality of the bowel ?preparation was good. ? Findings: ? The perianal and digital rectal examinations were nor mal. Two ? pedunculated polyps were found in the sig moid colon. The polyps were 3 ? to 5 mm in size. These polyps were remove d with a hot snare. Resection ? and retrieval were complete. The exam was otherwise w ithout ? abnormality.The retroflexed view of the distal rect um was normal and ? showed no anal or rectal abnormalities. ? Impression: ? - Two 3 to 5 mm polyps in the sigmoid colon. ?Resected and retrieve d. ?- The examination was otherwise normal. Recommendation: ? - Await pathology results. ?- Repeat colonoscopy after studies are complete for ?surveillance based on pathology results. ? Electronically signed by Maryam Cain MD Maryam Cain MD Signed Date: 05/30/2013 10:56:46 AM Number of Addenda: 0 I was physically present for the entire viewing portion of t he exam. Note Initiated On: 05/30/2013 10:19:06 AM Scope Withdrawal Time: 0 hours 7 minutes 51 seconds Scope Withdrawal Time: 0 hours 7 minutes 51 seconds Total Procedure Duration: 0 hours 16 minutes 26 seconds Total Procedure Duration: 0 hours 16 minutes 26 seconds Specimen (Source) Anatomical Collection Method Collection Time Re ceived Time Location / / Volume Laterality 05/30/2013 10:19 AM CDT Ranjith Boo MD PROCEDURES Performing Organization Address City/State/ZIP Code Phon e Number RADIOLOGY RESULTS documented in this encounter Visit Diagnoses Not on filedocumented in this encounter Active and Recently Administered Medications Times are shown in CDT. PRN Medication Order 05/28/2013 05/29/2013 05/30/2013 fentaNYL (SUBLIMAZE) injection (CANCELED) 1034 (Given - Provider: Annalisa Kinney RN) PRN, Starting 05/30/13 at 1034, moderate to severe pain, Intr a-procedure midazolam (VERSED) injection (CANCELED) 1034 (Given - Provider: Annalisa Kinney, RN)1037 (Given - Provider: Annalisa Kinney, RN) PRN, Starting Sun05/30/13 at 1034, anxiety, Intra-procedure documented in this encounter Care Teams Director Talent Acquisition Relationship Specialty Start Date End Date Ranjith Boo MD PCP - General 07/11/02 12/17/13 [address] [place] [address] documented as of this encounter
--- OUTSIDE RECORDS SUMMARY | 2022-07-19 23:00 | XMS_ITS | Encounter Summary ---
:1940 Author Organization [place] Address [facility] 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 01/17/2011 ED f/u call Encounter Details Date Type Department Care Team Description 01/17/2011 Telephone [place] [facility] Nimo Sarah SHIP DESIGN TEACHER - FOLLOW UP [facility] - CARE (ED f/u ca ll) MANAGEMENT DEPT [address] [place] [id number] Social History Tobacco Use Types Packs/Day Years Used Date Smoking Tobacco: Never Smokeless Tobacco: Never Alcohol Use Standard Drinks/Week Comments No 0 (1 standard drink = 0.6 oz pure alcoho l) Sex Assigned at Date Recorded Not on file documented as of this encounter Miscellaneous Notes Telephone Encounter - Nimo Sarah - 01/17/2011 2:06 PM CDT Spoke with patient regarding ED visit for pneumonitis w/cough. Says is slowly getting better on Levaquin. Does have a f/u appt to see Dr Stone since Dr Hughes is booked out. Appt scheduled for 01/18/11. No questions or concerns other than the difficulty of getting in to see Dr Hughes. Nimo Sarah RN-BC, FPA Certified Court Interpreter, documented in this encounter Plan of Treatment Not on filedocumented as of this encounter Visit Diagnoses Not on filedocumented in this encounter Care Teams Rescue Worker Relationship Specialty Start Date End Date Ranjith Hughes MD PCP - General 07/11/02 12/17/13 [address] [place] [address] documented as of this encounter
--- OUTSIDE RECORDS SUMMARY | 2022-07-19 23:00 | XMS_ITS | Encounter Summary ---
:1940 Author Organization [place] Address [address] [place] [address]. [place] [address] Care Team Providers Name Role Phone Ranjith Hughes MD Primary Care Provider Reason for Visit Reason Comments Cough ER f/u 01/12/11 pneumonia---s lightly improved---c/o green tinged sputum-on levaquin Pre Visit Planning - Done PVP completed 01/17/2011 lf Encounter Details Date Type Department Care Team Description 01/18/2011 Office Visit [facility] Lio Stone; Clinic [place] MD Quan Pneumonia; [address] [place] [address] CONGESTIVE HEART FAILURE, UNSPEC; [place], [place] Edema; [phone] JOINT PAIN-LOWER LEG; [phone] GENERAL OSTEOAR THROSIS; (Work) Obesity Social History Tobacco Use Types Packs/Day Years Used Date Smoking Tobacco: Never Smokeless Tobacco: Never Alcohol Use Standard Drinks/Week Comments No 0 (1 standard drink = 0.6 oz pure alcoho l) Sex Assigned at Date Recorded Not on file documented as of this encounter Last Filed Vital Signs Vital Sign Reading Time Taken Comments Blood Pressure 140/96 01/18/2011 11:28 AM CDT Pulse 105 01/18/2011 11:28 AM CDT Temperature 36.8 ??C (98.3 ??F) 01/18/2011 11:28 AM CDT Respiratory Rate 20 01/18/2011 11:28 AM CDT Oxygen Saturation 94% 01/18/2011 11:28 AM CDT Inhaled Oxygen Concentration - - Weight - - Height - - Body Mass Index - - documented in this encounter Progress Notes Lio Stone - 01/18/2011 11:58 AM CDT SUBJECTIVE: CC: Lee Ann Herndon is a 70 year old female who presents for follow up pneumonia HPI: cough less, no dyspnea, has bad osteoarthritis, question of chest mass on CT, discussed the role of follow up films PROBLEM LIST: Patient Active Problem List Diagnoses Code ??? CONGESTIVE HEART FAILURE, UNSPEC 428.0 ??? EDEMA 782.3 ??? JOINT PAIN-LOWER LEG 719.46 ??? GENERAL OSTEOARTHROSIS 715.00 ??? MED EXAM NEC-ADMIN PURP V70.3 ??? Anxiety 300.00E ??? Mild Major Depression 296.21E ??? CARDIOVASCULAR SCREENING; LDL GOAL LESS THAN 160 V81.2LR ??? GERD (GASTROESOPHAGEAL REFLUX DISEASE) 530.81K PAST MEDICAL HISTORY: Past Medical History Diagnosis Date ??? ESOPHAGEAL REFLUX ??? Depressive disorder, not elsewhere classified PAST SURGICAL HISTORY: Past Surgical History Procedure Date ??? C nonspecific procedure s/p x 2, spAb x 1 ??? C nonspecific procedure s/p appendectomy ??? C nonspecific procedure s/p D&C after spAb ??? Surgical history of - hernia repair, rt inguinal ??? Surgical history of - knee replacement on the rt CURRENT MEDICATIONS: Current outpatient prescriptions Medication Sig ??? levofloxacin (LEVAQUIN) 500 MG tablet Take 1 tablet by mouth daily for 5 days. ??? sertraline (ZOLOFT) 50 MG tablet Take by mouth. take 1 tablet by mouth daily. ??? Omeprazole-Sodium Bicarbonate 20-1100 MG CAPS Take 1 capsule by mouth daily. FAMILY HISTORY: History reviewed. No pertinent family history. HEALTH MAINTENANCE: REVIEW OF OUTSIDE RECORDS: NO REVIEW OF SYSTEMS: C: NEGATIVE for fever, chills I: NEGATIVE for worrisome rashes, moles or lesions E: NEGATIVE for vision changes R: NEGATIVE for significant cough or SOB CV: NEGATIVE for chest pain, palpitations GI: NEGATIVE for nausea, abdominal pain, heartburn, or change in bowel habits : NEGATIVE for frequency, dysuria, or hematuria M: NEGATIVE for significant arthralgias or myalgia N: NEGATIVE for weakness, dizziness or paresthesias or headache EXAM: BP 140/96 Pulse 105 Temp(Src) 98.3 ??F (36.8 ??C) (Oral) Resp 20 SpO2 94% GENERAL APPEARANCE: healthy, alert and no distress EXAM: GENERAL APPEARANCE: healthy, alert and no distress EYES: EOMI, PERRL HENT: ear canals and TM's normal [...] HSM or masses and bowel sounds normal ASSESSMENT/PLAN 1. PHARYNGITIS (462Y) 2. Pneumonia (486F) 3. CONGESTIVE HEART FAILURE, UNSPEC (428.0) 4. Edema (782.3) 5. JOINT PAIN-LOWER LEG (719.46) 6. GENERAL OSTEOARTHROSIS (715.00) 462Y PHARYNGITIS Comment: improving Plan: 486F Pneumonia Comment: Plan: levofloxacin (LEVAQUIN) 500 MG tablet Five more days prn 428.0 CONGESTIVE HEART FAILURE, UNSPEC Comment: Plan: no edema 782.3 Edema Comment: Plan: 719.46 JOINT PAIN-LOWER LEG Comment: Plan: left knee oa severe, CANE 715.00 GENERAL OSTEOARTHROSIS Comment: obese Plan: I have discussed with patient the risks, benefits, medications, treatment options and modalities. I have instructed the patient to call or schedule a follow-up appointment if any problems or failureto improve. documented in this encounter Nursing Notes 01/18/2011 11:30 AM CDT >> HILARIA LOPEZ SunJan 18, 2011 11:33 AM Patient presents with: Cough - f/u pneumonia---slightly improved---c/o green tinged sputum Pre Visit Planning - Done - PVP completed 01/17/2011 lf Initial BP 140/96 Pulse 105 Temp(Src) 98.3 ??F (36.8 ??C) (Oral) Resp 20 SpO2 94% Estimated Body mass index is 34.54 kg/(m^2) as calculated from the following: Height as of 01/13/10: 5' 3(1.6 m). Weight as of 07/16/09: 195 lb(88.451 kg). BP completed using cuff size large r arm Health Maintenance Updated with Patient: Yes Hilaria Lopez CMA documented in this encounter Plan of Treatment Not on filedocumented as of this encounter Visit Diagnoses Diagnosis Pharyngitis Acute pharyngitis Pneumonia Pneumonia, organism unspecified CONGESTIVE HEART FAILURE, UNSPEC Congestive heart failure, unspecified Edema JOINT PAIN-LOWER LEG Pain in joint, lower leg GENERAL OSTEOARTHROSIS Generalized osteoarthrosis, unspecified site Obesity Obesity, unspecified documented in this encounter Care Teams Steel Hanger Relationship Specialty Start Date End Date Ranjith Hughes MD PCP - General 07/11/02 12/17/13 [address] [place] [address] documented as of this encounter
--- OUTSIDE RECORDS SUMMARY | 2022-07-19 23:00 | XMS_ITS | Encounter Summary ---
:1940 Author Organization [place] Address [facility] [place] [address] Care Team Providers Name Role Phone Ranjith Boo MD Primary Care Provider Reason for Visit Auth/Cert - Closed Specialty Diagnoses / Procedures Referred By Contact Refer red To Contact Gastroenterology Diagnoses Screening Endoscopy Procedures COLONOSCOPY [address] [place] [address] Phone: Fax: Referral ID Status Reason Start Date Expiration Date Visits Requ ested Visits Authorized [id number] Closed 1 1 Encounter Details Date Type Department Care Team Description 05/30/2013 Surgery [facility] Maryam Cain, [place] noscopy polyp by Endoscopy Ronan BATISTA snare [address] [place], [place] GASTROINTESTINAL [address] [address] [phone] [place] [address] Surgery Details Date/Time Status Location OR Service Patient Class Case Case Trauma Class Type Case? 05/30/13 Posted GI GI A Gastroenterology Outpatient 10:30 AM Panel 1 Procedure LRB Anes Op Region Wound Class Commen ts Colonoscopy polyp N/A Conscious Rectum II-Clean Colonos copy polyp by snare Sedation Contaminated by snare Surgeon Surgeon Role Service Panel Maryam Cain MD Primary Gastroenterology 1 documented in this [...] the chance of preventing its spread. ?? [phone] Tram Garcia, [address] [place] [address], [place] [address]. All rights reserved. This information is not intended as a substitute for professional medical care. Always follow your healthcare professional's instructions. documented in this encounter Medications at Time of Discharge Medication Sig Dispensed Refills Start Date End Date ORDER FOR Equipment being 2 Units 0 05/26/2013 4 DMEIndications: Edema ordered: compression stockings 15-20 mmhg [id number] Zzzquil, take 1 capsule 0 06/28/2016 daily as needed SERTRALINE HCL PO Take by mouth daily 0 06/16/2013 documented as of this encounter Progress Notes Maryam Cain MD - 06/04/2013 9:54 AM CDT Quick Note: Pt informed of results. Will need redo in 3 yr. documented in this encounter H&P Notes Maryam Cain MD - 05/30/2013 10:17 AM CDT Pre-Endoscopy History and Physical Lee Ann Escobar Date of : 1940 Age: [age] year [...] (GASTROESOPHAGEAL REFLUX DISEASE) ??? Obesity ??? [facility] Past Medical History Diagnosis Date ??? Esophageal [...] Take by mouth daily Yes Reported, Patient [id number] Zquil, take 1 capsule daily Reported, Patient [...] Component Value Ref Test Analysis Performed At [facility] M Squared Films Range Method Time Signature Copath Report Patient Name: LEE ANN ESCOBAR MR#: [id number] Specimen #: [id number] Collected: 05/30/2013 Received: 05/30/2013 Reported: 06/03/2013 16:57 Ordering Phy(s): MARYAM CAIN Additional Phy(s): RANJITH BOO SPECIMEN(S): Sigmoid colon polyp FINAL DIAGNOSIS: [...] evidence of high grade dysplasia or malignancy. MGP/kd 06-03-13 TESTING LAB LOCATION: [address] ??[address] COLLECTION SITE: Client: [facility] Location: RHENDO (R) Specimen Anatomical Collection Method Collection Time Receive d Time (Source) Location / / Volume Laterality 05/30/2013 10:49 05/30/2013 AM CDT 11:30 AM CDT Maryam AGARWAL Performing Organization Address City/State/ZIP Code Phon e Number COPATH COLONOSCOPY (05/30/2013 10:19 AM CDT) [facility] Method Time Signature COLONOSCOPY [facility] RAD IOLOGY RESULTS Patient Name: Lee Ann [...] Action Action Date Dose Rate Site fentaNYL (SUBLIMAZE) injection Given 05/30/2013 10:34 AM CDT 100 mcg PRN, moderate to severe pain, Starting on Sun05/30/13 at 1034, Intra-procedure midazolam (VERSED) injection Given 05/30/2013 10:37 AM CDT 1 mg PRN, anxiety, Starting on Sun05/30/13 at 1034, Intra-procedure Given 05/30/2013 10:34 AM CDT 1 mg documented in this encounter Active and Recently Administered Medications Times are shown in CDT. PRN Medication Order 05/28/2013 05/29/2013 05/30/2013 fentaNYL (SUBLIMAZE) injection (CANCELED) 1034 (Given - Provider: Annalisa Kinney RN) PRN, Starting Sun05/30/13 at 1034, moderate to severe pain, Intr a-procedure midazolam (VERSED) injection (CANCELED) 1034 (Given - Provider: Annalisa Kinney RN)1037 (Given - Provider: Annalisa Kinney RN) PRN, Starting Sun05/30/13 at 1034, anxiety, Intra-procedure documented in this encounter Care Teams Registered Nurse Midwife Relationship Specialty Start Date End Date Ranjith Boo MD PCP - General 07/11/02 12/17/13 [address] [place] [address] documented as of this encounter
--- OUTSIDE RECORDS SUMMARY | 2022-07-19 23:00 | XMS_ITS | Encounter Summary ---
:1940 Author Organization [facility] Address [facility] [place] [address] Care Team Providers Name Role Phone Ranjith Hughes MD Primary Care Provider Reason for Visit Reason Onset Date Comments Patient Request 01/21/2011 pharmacy calling- Encounter Details Date Type Department Care Team Description 01/21/2011 [facility] Ranjith Hughes Patien t Request Clinic Cum[place]qu[place] MD (pharmacy calling-) [address] [place] [phone] Social History Tobacco Use Types Packs/Day Years Used Date Smoking Tobacco: Never Smokeless Tobacco: Never Alcohol Use Standard Drinks/Week Comments No 0 (1 standard drink = 0.6 oz pure alcoho l) Sex Assigned at Date Recorded Not on file documented as of this encounter Miscellaneous Notes Telephone Encounter - Lio Stone - 01/23/2011 2:52 PM CDT Ok to switch, new rx Telephone Encounter - Aaliyah Reynolds - 01/23/2011 11:45 AM CDT JM, see below Aaliyah Reynolds RN, BSN Message handled by Nurse Triage with Erik. Telephone Encounter - Huma Arguelles - 01/21/2011 11:36 AM CDT pharmacy calling- levaquin prescribed on 01/18-- this drug not covered and is also on patients allergy list. Ins will cover Cipro Please advise pharm. Sent to govind Reyes) Huma Arguelles documented in this encounter Plan of Treatment Not on filedocumented as of this encounter Visit Diagnoses Diagnosis Bronchitis - Primary Bronchitis, not specified as acute or ch ronic documented in this encounter Care Teams Health Advocate Relationship Specialty Start Date End Date Ranjith Hughes MD PCP - General 07/11/02 12/17/13 [address] [place] [address] documented as of this encounter
--- OUTSIDE RECORDS SUMMARY | 2022-07-19 23:00 | XMS_ITS | Encounter Summary ---
:1940 Author Organization [place] Address [address] [place] [address]. [place] [address] Care Team Providers Name Role Phone Ranjith Hughes MD Primary Care Provider Reason for Visit Reason Comments Cough frequent cough, swollen glan ds, earache, chest hurts, bodyaches, backaches, headaches, fatigu e x 1 month Depression follow up medications Encounter Details Date Type Department Care Team Description 01/11/2011 Office Visit [facility] Ranjith Hughes, Audi y (Primary Dx); Clinic [place] [facility] [address] [place] [phone] Social History Tobacco Use Types Packs/Day Years Used Date Smoking Tobacco: Never Alcohol Use Standard Drinks/Week Comments No 0 (1 standard drink = 0.6 oz pure alcoho l) Sex Assigned at Date Recorded Not on file documented as of this encounter Last Filed Vital Signs Vital Sign Reading Time Taken Comments Blood Pressure 126/82 01/11/2011 8:59 AM CDT Pulse 102 01/11/2011 8:59 AM CDT Temperature 37.3 ??C (99.1 ??F) 01/11/2011 8:59 AM CDT Respiratory Rate 20 01/11/2011 8:59 AM CDT Oxygen Saturation 93% 01/11/2011 8:59 AM CDT Inhaled Oxygen Concentration - - Weight - - Height - - Body Mass Index - - documented in this encounter Progress Notes Ranjith Hughes - 01/22/2011 6:50 PM CDT SUBJECTIVE: Lee Ann Herndon, a 70 year old female scheduled an appointment to discuss the following issues: ANXIETY Medical, social, surgical, and family histories reviewed. ROS: C: NEGATIVE for fever, chills E: NEGATIVE for vision changes RESP:as above CV: NEGATIVE for chest pain, palpitations GI: NEGATIVE for nausea, abdominal pain, heartburn, or change in bowel habits : NEGATIVE for frequency, dysuria, or hematuria M: NEGATIVE for significant arthralgias or myalgia N: NEGATIVE for weakness, dizziness or paresthesias or headache OBJECTIVE: BP 126/82 Pulse 102 Temp(Src) 99.1 ??F (37.3 ??C) (Oral) Resp 20 SpO2 93% EXAM: GENERAL APPEARANCE: healthy, alert and no [...] HSM or masses and bowel sounds normal ASSESSMENT/PLAN: 300.00E Anxiety (primary encounter diagnosis) Comment: Plan: sertraline (ZOLOFT) 50 MG tablet, X-ray Chest 2 vws*, CBC with platelets differential, guaiFENesin/codeine (ROBITUSSIN AC) 100-10 MG/5ML SOLN, levofloxacin (LEVAQUIN) 5 MG/ML, levofloxacin (LEVAQUIN) 5 MG/ML she is complaining about chronic chronic cough. She's had several treatments with no response she is asking for IV antibiotics. She does not seem to be short of breath. She is worried about pneumonia,Or physical examination is not consistent with this. Her concerns for her cough could be secondary to her anxiety for which We know that she has a history. Please see the above orders She is to return the clinic after her treatment with IV antibiotics. She will need to go to the hospital to pick Line placed 25 minutes was spent in examination and consultation documented in this encounter Nursing Notes 01/11/2011 8:45 AM CDT >> JULIA GASCA Wed Jan 11, 2011 9:03 AM Patient presents with: Cough - frequent cough, swollen glands, earache, chest hurts, bodyaches, backaches, headaches, fatigue x 1 month Depression - follow up medications Initial BP 126/82 Pulse 102 Temp(Src) 99.1 ??F (37.3 ??C) (Oral) Resp 20 SpO2 93% Estimated Body mass index is 34.54 kg/(m^2) as calculated from the following: Height as of 01/13/10: 5' 3(1.6 m). Weight as of 07/16/09: 195 lb(88.451 kg). BP completed using cuff size large Right Arm Unable to get new height and weight as patient too weak and in wheelchair. Health Maintenance reviewed - Yes: Tobacco Verified: Yes Payor/Verify RX Benefits/Reconcile Disp Completed if allowed: Yes Family History Updated: Yes MyChart Offered: Yes Immunizations Up to Date: Yes Julia Gasca SUPERINTENDENT STEVEDORING documented in this encounter Plan of Treatment Not on filedocumented as of this encounter Procedures Procedure Name Priority Date/Time Associated Comments Diagnosis XR CHEST 2 VIEWS Routine 01/11/2011 10:12 Anxiety Results for this AM CDT procedure are i n the results section. CBC WITH PLATELETS & Routine 01/11/2011 9:33 AM Anxiety R esults for this DIFFERENTIAL CDT procedure are i n the results section. documented in this encounter Results X-ray Chest 2 vws* (01/11/2011 10:12 AM CDT) Anatomical Region Laterality Modality Chest Other Specimen (Source) Anatomical Collection Method Collection Time Re ceived Time Location / / Volume Laterality 01/11/2011 10:12 AM CDT Impressions 01/11/2011 1:17 PM CDT CHEST, PA AND LATERAL ??Jan 11, 2011 10: 12:00 AM ?? HISTORY: Anxiety. COMPARISON: 08/09/2010. FINDINGS: There is slight increased prom inence of the vascularity since last August, and this is probabl y mild venous hypertension. There is slight cardiomegaly, and the he art is slightly larger. A large hiatal hernia shadow is present be hind the heart; this is unchanged. A few scattered chronic linea r shadows in the bases, probably some discoid atelectasis or fib rosis. ?? IMPRESSION: Mild cardiomegaly and slight venous hypertension. Ranjith Hughes MD IMG DIAGNOSTIC IMAGING ORDER BERNARDO (ABNORMAL) CBC with platelets differential (01/11/2011 9:33 AM CDT) [facility] gist Method Time Signature WBC 8.4 4.0 - [facility] 11.0 [facility] 10e9/L CLINIC LAB RBC Count 4.66 3.8 - 5.2 [place] 10e12/L [facility] Hemoglobin 14.2 11.7 - [facility] 15.7 g/dL [facility] Hematocrit 43.7 35.0 - [facility] 47.0 % [facility] MCV 94 78 - 100 [place] fl [facility] MCH 30.5 26.5 - [facility] 33.0 pg [facility] MCHC 32.5 31.5 - [facility] 36.[facility] g/dL [facility] RDW 13.9 10.0 - [facility] 15.0 % [facility] Platelet Count 136 (L) 150 - 450 [place] 10e9/L [facility] Diff Method Automated [place] Method [facility] % Neutrophils 71.7 40 - 75 % [facility] % Lymphocytes 20.5 20 - 48 % [facility] % Monocytes 6.8 0 - 12 % [facility] % Eosinophils 0.9 0 - 6 % [facility] % Basophils 0.1 0 - 2 % [facility] Absolute 6.0 1.6 - 8.3 [place] Neutrophil 10e9/L [facility] Absolute 1.7 0.8 - 5.3 [facility] Lymphocytes 10e9/L [facility] Absolute 0.6 0.0 - 1.3 [place] Monocytes 10e9/L [facility] Absolute 0.1 0.0 - 0.7 [facility] Eosinophils 10e9/L [facility] Absolute 0.0 0.0 - 0.2 [place] Basophils 10e9/L [facility] Specimen Anatomical Collection Method Collection Time Receive d Time (Source) Location / / Volume Laterality Blood specimen 01/11/2011 9:33 AM 011 9:35 (specimen) CDT AM CDT Ranjith Hughes MD LAB - BLOOD ORDERABLES Performing Organization Address City/State/ZIP Code Phon e Number [facility] [address] [place] [address] [facility] documented in this encounter Visit Diagnoses Diagnosis Anxiety - Primary Anxiety state, unspecified Cough documented in this encounter Care Teams Veterinary Medicine Scientist Relationship Specialty Start Date End Date Ranjith Hughes MD PCP - General 07/11/02 12/17/13 [address] [place] [address] documented as of this encounter
--- OUTSIDE RECORDS SUMMARY | 2022-07-19 23:00 | XMS_ITS | Encounter Summary ---
:1940 Author Organization [place] Address [address] [place] [address]. [place] [address] Care Team Providers Name Role Phone Ranjith Hughes MD Primary Care Provider Encounter Details Date Type Department Care Team Description 08/13/2010 Telephone [facility] Ranjith Hughes MD [place] [phone] [phone] Social History Tobacco Use Types Packs/Day Years Used Date Smoking Tobacco: Never Alcohol Use Standard Drinks/Week Comments No 0 (1 standard drink = 0.6 oz pure alcoho l) Sex Assigned at Date Recorded Not on file documented as of this encounter Miscellaneous Notes Telephone Encounter - Michelle Woods - 08/19/2010 9:07 AM CST Unable to reach pt. Michelle Woods CMA PLATER Telephone Encounter - Michelle Woods - 08/17/2010 2:46 PM CST lmom for pt to call back to [place]. Michelle Woods CMA PLATER Telephone Encounter - Ranjith Hughes - 08/17/2010 12:48 PM CST Call to check in with patient PLATER Telephone Encounter - Sheila Oliva - 08/13/2010 7:38 AM CST Please call Lee Ann, she had to cancel Sunday appointment due to weather. Can her recheck get in 08/18 or some time this week. PLATER documented in this encounter Plan of Treatment Not on filedocumented as of this encounter Visit Diagnoses Not on filedocumented in this encounter Care Teams Raiser Helper Relationship Specialty Start Date End Date Ranjith Hughes MD PCP - General 07/11/02 12/17/13 [address] [place] [address] documented as of this encounter
--- OUTSIDE RECORDS SUMMARY | 2022-07-19 23:00 | XMS_ITS | Encounter Summary ---
:1940 Author Organization [place] Address [facility] [place] [address] Care Team Providers Name Role Phone Ranjith Hughes MD Primary Care Provider Reason for Visit Reason Comments Depression Establish Care Encounter Details Date Type Department Care Team Description 12/15/2013 Office Visit [facility] Julia White, Mild domitila manrique depression (H) (Primary Dx); Clinic Adri Reynoso MD Anxiety; [address] [place] [address] Hypertension; [place], [place] Family history of diabetes mellitus; [id number] Hypercalcemia [phone] Social History Tobacco Use Types Packs/Day Years Used Date Smoking Tobacco: Never Smokeless Tobacco: Never Alcohol Use Standard Drinks/Week Comments No 0 (1 standard drink = 0.6 oz pure alcoho l) Sex Assigned at Date Recorded Not on file documented as of this encounter Last Filed Vital Signs Vital Sign Reading Time Taken Comments Blood Pressure 138/94 12/15/2013 1:18 PM CDT Pulse 90 12/15/2013 1:18 PM CDT Temperature 36.9 ??C (98.4 ??F) 12/15/2013 1:18 PM CDT Respiratory Rate - - Oxygen Saturation 96% 12/15/2013 1:18 PM CDT Inhaled Oxygen - - Concentration Weight 105.7 kg (233 lb) 12/15/2013 1:18 PM per patient , refused CDT to get on scale. Height - - Body Mass Index 42.62 05/26/2013 7:56 AM CDT documented in this encounter Progress Notes Julia Figueroa MD - 12/15/2013 1:20 PM CDT SUBJECTIVE: Lee Ann Herndon is a 73 year old female who presents to clinic today for the following health issues: She is here for a recheck on depression. She is feeling well on her current medication and does not wish to stop at this time. She has no concerns at this time. She is here to establish primary care. Depression Follow-Up ?? Status since last visit: Improved irritable without the medication ?? See PHQ-9 for current symptoms. ?? Other associated symptoms:None ?? Complicating factors: Significant life event: Yes- Daughter is getting Current substance abuse: None Anxiety / Panic symptoms: No PHQ-9 Chilean PHQ-9 Any Language ?? Amount of exercise or physical activity: None ?? Problems taking medications regularly: No ?? Medication side effects: none ?? Diet: regular (no restrictions) Past Medical History Diagnosis Date ??? Esophageal [...] - 2008 left ankle surgery - [place] MEDICATIONS: Current Outpatient Prescriptions Medication ??? sertraline (ZOLOFT) 50 MG tablet ??? lisinopril (PRINIVIL,ZESTRIL) 5 MG tablet ??? [id number] ??? ORDER FOR DME SOCIAL HISTORY: History Substance Use Topics ??? Smoking status: Never Smoker ??? Smokeless tobacco: Never Used ??? Alcohol Use: No History reviewed. No pertinent family history. Objective: Blood pressure 138/94, pulse 90, temperature 98.4 ??F (36.9 ??C), temperature source Tympanic, weight 233 lb (105.688 kg), SpO2 96.00%. Chest: Clear to auscultation bilaterally. No wheezes, rales or retractions. CV: Regular rate and rhythm without murmurs, rubs or gallops. ABDOMEN: Positive bowel sounds, soft, nondistended and nontender. No masses are palpated and there is no organomegaly or inguinal lymphadenopathy. Affect: full Mood: good The patient denies suidal thought PHQ-9: 0 Assessment: 1. Depression - doing very well 2. HCM - is due for dexa and mammogram 3. hypertension - this has been ongoing and patient is currently not taking anything for this 4. Family history of diabetes 5. Upon reviewing records, patient has had hypercalcemia for years - wonder about status of bones and parathyroid gland Plan: 1. See [facility]are orders for labs 2. Will start lisinopril 3. The potential side effects of the prescription medication were discussed with the patient. 4. Refills per [facility] 5. Ordered DEXA 6. Discussed mammo and patient will wait for now 7. Recheck in 2 months - will do CPE at that time - patient does not need paps anymore documented in this encounter Nursing Notes 12/15/2013 1:30 PM CDT >> JHONY FLORES Mon Dec 15, 2013 1:23 PM Patient presents with: Depression Establish Care Initial BP 138/94 Pulse 90 Temp 98.4 ??F (36.9 ??C) (Tympanic) Wt 233 lb (105.688 kg) SpO2 96% Estimated Body mass index is 42.61 kg/(m^2) as calculated from the following: Height as of 05/26/13: 5' 2(1.575 m). Weight as of this encounter: 233 lb(105.688 kg). BP completed using cuff size large Right Arm Health Maintenance reviewed - Yes: (UTD) Tobacco Verified: Yes Family History Updated: Yes Immunizations Up to Date: Yes Lizz Flores CMA documented in this encounter Miscellaneous Notes Addendum Note - Farnaz Kilgore - 12/15/2013 2:42 PM CDT Addended by: FARNAZ KILGORE on: 12/15/2013 02:42 PM Modules accepted: Orders documented in this encounter Plan of Treatment Not on filedocumented as of this encounter Procedures Procedure Name Priority Date/Time Associated Diagnosis Comme nts TSH Routine 12/15/2013 1:53 Hypertension Results for this PM CDT procedure are i n the results section. PARATHYROID HORMONE Routine 12/15/2013 1:53 Hypercalcemia Resu lts for this INTACT PM CDT procedure are i n the results section. HEMOGLOBIN A1C Routine 12/15/2013 1:53 Family history of Resul ts for this PM CDT diabetes mellitus procedure are in the results section. COMPREHENSIVE Routine 12/15/2013 1:53 Hypercalcemia Results fo r this METABOLIC PANEL PM CDT procedure ar e in the results section. documented in this encounter Results TSH (12/15/2013 1:53 PM CDT) athologist Signature TSH 2.41 0.4 - 5.0 [facility] mU/L [place] Specimen Anatomical Collection Method Collection Time Receive d Time (Source) Location / / Volume Laterality Blood specimen 12/15/2013 1:53 PM 014 2:43 (specimen) CDT PM CDT Julia White MD LAB - BLOOD ORDERABLES Performing Organization Address City/State/ZIP Code Phon e Number [facility] [address] [place] [id number] [facility] [address] [place], [place] [address] (ABNORMAL) Parathormone intact (12/15/2013 1:53 PM CDT) [facility] gist Method Time Signature Parathyroid 583 (H) 12 - 72 [facility] Hormone Intact pg/mL [facility] Specimen Anatomical Collection Method Collection Time Receive d Time (Source) Location / / Volume Laterality Blood specimen 12/15/2013 1:53 PM 014 1:57 (specimen) CDT PM CDT Julia White MD LAB - BLOOD ORDERABLES Performing Organization Address City/State/ZIP Code Phon e Number [facility] [address] [place] [address] [facility] LAB[facility] (ABNORMAL) Comprehensive metabolic panel (12/15/2013 1:53 PM CDT) Analysis Performed At Patho logist Time Signature Sodium 140 133 - 144 [facility] mmol/L [facility] Potassium 4.5 3.4 - 5.3 [facility] mmol/L [facility] Chloride 104 94 - 109 [facility] mmol/L [facility] Carbon Dioxide 26 20 - 32 [facility] mmol/L [facility] Anion Gap 11 6 - 17 [facility] mmol/L [facility] Glucose 84 60 - 99 [facility] mg/dL [facility] Urea Nitrogen 21 7 - 30 [facility] mg/dL [facility] Creatinine 0.97 0.52 - [facility] 1.04 mg/dL [facility] GFR Estimate 57 (L) >60 [facility] mL/min/1.7 [facility] m2 GFR Estimate If 69 >60 [facility] mL/min/1.7 [facility] m2 Calcium 11.0 (H) 8.5 - 10.4 [facility] mg/dL [facility] Bilirubin Total 0.4 0.2 - 1.3 [facility] mg/dL [facility] Albumin 4.0 3.3 - 4.9 [facility] g/dL [facility] Comment: Reference range changed on 06/02. Protein Total 6.9 6.8 - 8.8 g/dL [facility] Comment: As of 08, reference range reflects plasma specimen type. Alkaline Phosphatase 117 40 - 150 U/L [facility] ALT 14 0 - 50 U/L [facility] [place] AST 20 0 - 45 U/L [facility] [place] Specimen Anatomical Collection Method Collection Time Receive d Time (Source) Location / / Volume Laterality Blood specimen 12/15/2013 1:53 PM 014 1:57 (specimen) CDT PM CDT Julia White MD LAB - BLOOD ORDERABLES Performing Organization Address City/State/ZIP Code Phon e Number [facility] [address] [place] [address] Hemoglobin A1c (12/15/2013 1:53 PM CDT) P athologist Signature Hemoglobin A1C 5.8 4.3 - 6.0 [facility] % [facility] Specimen Anatomical Collection Method Collection Time Receive d Time (Source) Location / / Volume Laterality Blood specimen 12/15/2013 1:53 PM 014 1:57 (specimen) CDT PM CDT Julia White MD LAB - BLOOD ORDERABLES Performing Organization Address City/State/ZIP Code Phon e Number [facility] [id number] [place] [id number] documented in this encounter Visit Diagnoses Diagnosis Mild major depression (H) - Primary Major depressive disorder, single episod e, mild Anxiety Anxiety state, unspecified Hypertension Unspecified essential hypertension Family history of diabetes mellitus Hypercalcemia documented in this encounter Care Teams Digital Learning Platforms Manager Relationship Specialty Start Date End Date Ranjith Hughes MD PCP - General 07/11/02 12/17/13 [address] [place] [address] documented as of this encounter
--- OUTSIDE RECORDS SUMMARY | 2022-07-19 23:00 | XMS_ITS | Encounter Summary ---
:1940 Author Organization [place] Address [facility] [place] [address] Care Team Providers Name Role Phone Ranjith Hughes MD Primary Care Provider Reason for Visit Reason Comments Hospital F/U is still taking abx but was only given 7 days and feels she needs more than that to get better Encounter Details Date Type Department Care Team Description 02/14/2012 Office Visit [facility] Ranjith Hughes, Pneumfaviola sandoval (Primary Dx); Clinic [place] Mild major depression (H) [address] [place] [phone] [id number] Social History Tobacco Use Types Packs/Day Years Used Date Smoking Tobacco: Never Smokeless Tobacco: Never Alcohol Use Standard Drinks/Week Comments No 0 (1 standard drink = 0.6 oz pure alcoho l) Sex Assigned at Date Recorded Not on file documented as of this encounter Last Filed Vital Signs Vital Sign Reading Time Taken Comments Blood Pressure 124/74 02/14/2012 10:40 AM CDT Pulse 85 02/14/2012 10:40 AM CDT Temperature 36.8 ??C (98.2 ??F) 02/14/2012 10:40 AM CDT Respiratory Rate 18 02/14/2012 10:40 AM CDT Oxygen Saturation 96% 02/14/2012 10:40 AM CDT Inhaled Oxygen Concentration - - Weight - - Height - - Body Mass Index - - documented in this encounter Progress Notes Ranjith Hughes MD - 02/14/2012 10:58 AM CDT SUBJECTIVE: Lee Ann Herndon, a 71 year old female scheduled an appointment to discuss the following issues: PNEUMONIA; Still complaining of shortness of breath also concerned about shingles. No current rash but has some discomfort Shingles; Medical, social, surgical, and family histories reviewed. ROS: C: NEGATIVE for fever, chills INTEGUMENTARY/SKIN: As above with discomfort left side of her neck E: NEGATIVE for vision changes R: NEGATIVE for significant cough or SOB CV: NEGATIVE for chest pain, palpitations GI: NEGATIVE for nausea, abdominal pain, heartburn, or change in bowel habits : NEGATIVE for frequency, dysuria, or hematuria M: NEGATIVE for significant arthralgias or myalgia N: NEGATIVE for weakness, dizziness or paresthesias or headache OBJECTIVE: BP 124/74 Pulse 85 Temp(Src) 98.2 ??F (36.8 ??C) (Oral) Resp 18 SpO2 96% EXAM: GENERAL APPEARANCE: healthy, alert and no [...] or masses and bowel sounds normal ASSESSMENT/PLAN: 486F Pneumonia (primary encounter diagnosis) Comment: Plan: 71-year-old female with History of pneumonia. Her physical examination seemed to be somewhat better and was previously air excursion her lungs is very good. Still with cough that is productive [address] as recheck. Please review her records to see why we need to recheck her CT documented in this encounter Nursing Notes 02/14/2012 10:00 AM CDT >> JULIA ALVA SunFebruary 14, 2012 10:44 AM Patient presents with: Hospital F/U - is still taking abx but was only given 7 days and feels she needs more than that to get better Initial BP 124/74 Pulse 85 Temp(Src) 98.2 ??F (36.8 ??C) (Oral) Resp 18 SpO2 96% Estimated Body mass index is 36.84 kg/(m^2) as calculated from the following: Height as of 09/20/11: 5' 1(1.549 m). Weight as of 09/20/11: 195 lb(88.451 kg).. BP completed using cuff size large Health Maintenance Updated with Patient: Yes Tobacco Verified: Yes Payor/Verify RX Benefits/Reconcile Disp Completed if allowed: Yes Family History Updated: Yes Immunizations Up to Date: Yes Mychart Offered: Yes Julia Alva CMA documented in this encounter Plan of Treatment Not on filedocumented as of this encounter Visit Diagnoses Diagnosis Pneumonia - Primary Pneumonia, organism unspecified Mild major depression (H) Major depressive disorder, single episod e, mild documented in this encounter Care Teams Legal Specialist Relationship Specialty Start Date End Date Ranjith Hughes MD PCP - General 07/11/02 12/17/13 [address] [place] [address] documented as of this encounter
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
--- OUTSIDE RECORDS SUMMARY | 2022-07-19 23:00 | XMS_ITS | Encounter Summary ---
:1940 Author Organization [place] Address [address] [place] [address]. [place] [address] Care Team Providers Name Role Phone Ranjith Hughes MD Primary Care Provider Reason for Visit Reason Onset Date Comments Refill Request 09/22/2011 Zoloft Encounter Details Date Type Department Care Team Description 09/22/[address] [facility] Ranjith Hughes MD Refill Request (Zoloft) [address] [phone] Social History Tobacco Use Types Packs/Day Years Used Date Smoking Tobacco: Never Smokeless Tobacco: Never Alcohol Use Standard Drinks/Week Comments No 0 (1 standard drink = 0.6 oz pure alcoho l) Sex Assigned at Date Recorded Not on file documented as of this encounter Miscellaneous Notes Telephone Encounter - Huma Arguelles - 10/02/2011 2:52 PM CST Faxed to [facility] Telephone Encounter - Kristi Gant - 09/29/2011 4:01 PM [facility]ER FARMER Addended by: KRISTI GANT on: 09/29/2011 Modules accepted: Orders ER FARMER Telephone Encounter - Kristi Gant - 09/29/2011 11:49 AM CST PHQ9 completed. Medication approved per standing orders. Message handled by Nurse Triage Kristi Gant R.N. ER FARMER Telephone Encounter - Kristi Gant - 09/22/2011 10:22 AM CST DEPRESSION/ANXIETY Last Office Visit R/T Diagnosis: 03/20/11 Provider Notes:recheck x Not noted Last PHQ-9 score on record= 7 Date: 01/11/11 SSRI: Zoloft OV: 6mths or as indicated [...] PHQ9 is not needed Max Refills: 6mths Needs PHQ9 and visit. L/M to call. Message handled by Nurse Triage Kristi Gant R.N. ER FARMER documented in this encounter Plan of Treatment Not on filedocumented as of this encounter Visit Diagnoses Diagnosis Anxiety Anxiety state, unspecified Screening for depression documented in this encounter Care Teams Communications Administrator Relationship Specialty Start Date End Date Ranjith Hughes MD PCP - General 07/11/02 12/17/13 [address] [facility] [place] [address] documented as of this encounter
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
--- OUTSIDE RECORDS SUMMARY | 2022-07-19 23:00 | XMS_ITS | Encounter Summary ---
:1940 Author Organization [place] Address [address] [place] [address] Care Team Providers Name Role Phone Ranjith Hughes MD Primary Care Provider Reason for Referral Referral not Required - Closed Specialty Diagnoses / Procedures Referred By Contact Refer red To Contact Diagnoses Special screening for malignant neoplasms of other sites Ranjith Hughes MD [address] [place] [address] Phone: Fax: Referral ID Status Reason Start Date Expiration Date Visits Requ ested Visits Authorized [id number] Closed 05/26/2013 11/22/2013 1 1 Reason for Visit Reason Comments Depression recheck Blood Draw FASTING for labs Encounter Details Date Type Department Care Team Description 05/26/2013 Office Visit [facility] Ranjith Hughes Mild m ajor depression (H) (Primary Dx); Clinic [place] MD Edema; [address] [place] [address] GERD (gastroesophageal reflux disease); [place], [place] Special screening for malignant neoplasms of other sites [phone] Social History Tobacco Use Types Packs/Day Years Used Date Smoking Tobacco: Never Smokeless Tobacco: Never Alcohol Use Standard Drinks/Week Comments No 0 (1 standard drink = 0.6 oz pure alcoho l) Sex Assigned at Date Recorded Not on file documented as of this encounter Last Filed Vital Signs Vital Sign Reading Time Taken Comments Blood Pressure 144/82 05/26/2013 7:56 AM CDT Pulse 87 05/26/2013 7:56 AM CDT Temperature 37.1 ??C (98.7 ??F) 05/26/2013 7:56 AM CDT Respiratory Rate 16 05/26/2013 7:56 AM CDT Oxygen Saturation 95% 05/26/2013 7:56 AM CDT Inhaled Oxygen Concentration - - Weight 105.7 kg (233 lb 1.6 oz) 05/26/2013 7:56 AM CDT Height 157.5 cm (5' 2) 05/26/2013 7:56 AM CDT Body Mass Index 42.63 05/26/2013 7:56 AM CDT documented in this encounter Progress Notes Ranjith Hughes MD - 05/26/2013 8:00 AM CDT SUBJECTIVE: Lee Ann Herndon is a 73 year old female who presents to clinic today for the following health issues: Depression Follow-Up ?? Status since last visit: Worsened ?? See PHQ-9 for current symptoms. ?? Other associated symptoms:None ?? Complicating factors: Significant life event: Yes- Son in law leaving his family Current substance abuse: None Anxiety / Panic / Manic symptoms: No PHQ-9 Ivorian PHQ-9 Any Language ?? Amount of exercise or daily activities, outside of work: 5-7 day(s) per week ?? Problems taking medications regularly Not applicable ?? Medication side effects: none ?? Diet: regular (no restrictions) History Substance Use Topics ??? Smoking status: Never Smoker ??? Smokeless tobacco: Never Used ??? Alcohol Use: No Problem list and histories reviewed & adjusted, as indicated. Additional history: as documented PROBLEMS TO ADD ON... Patient Active Problem List Diagnosis ??? CONGESTIVE HEART FAILURE, UNSPEC ??? EDEMA ??? JOINT PAIN-LOWER LEG ??? GENERAL OSTEOARTHROSIS ??? Anxiety ??? Mild Major Depression ??? CARDIOVASCULAR SCREENING; LDL GOAL LESS THAN 160 ??? GERD (GASTROESOPHAGEAL REFLUX DISEASE) ??? Obesity ??? Health Long-Term Past Surgical History Procedure Date ??? C [...] No History reviewed. No pertinent family history. ROS: C: NEGATIVE for fever, chills, change in weight E/M: NEGATIVE for ear, mouth and throat problems R: NEGATIVE for significant cough or SOB Gi; see hx Ext; has had some edema CV: NEGATIVE for chest pain, palpitations or peripheral edema PSYCHIATRIC: depression OBJECTIVE: BP 144/82 Pulse 87 Temp 98.7 ??F (37.1 ??C) (Oral) Resp 16 Ht 5' 2 (1.575 m) Wt 233 lb 1.6 oz (105.733 kg) BMI 42.63 kg/m2 SpO2 95% Body mass index is 42.63 kg/(m^2). GENERAL: healthy, alert, well nourished, well [...] no hepatosplenomegaly, no masses, normal bowel sounds NEURO: strength and tone- normal, sensory exam- grossly normal, mentation- intact, speech- normal, reflexes- symmetric. Psych; feels depressed says she is depressed. In addition she's crying worried Extremities; edema to her ankles ASSESSMENT/PLAN: 1. Mild major depression (296.21) DEPRESSION ACTION PLAN (DAP), Lipid panel reflex to direct LDL, PHQ-9 Depression Screening, citalopram (CELEXA) 10 MG tablet 2. Edema; compression stockings 3. gerd Has had CT scan with previous pneumonia. This could be from reflux Will follow up with CT scan , in next several months. See Patient Instructions Ranjith Hughes MD, [facility] documented in this encounter Nursing Notes 05/26/2013 8:15 AM CDT >> EMMANUELLE PFEIFFER Mon May 26, 2013 8:08 AM Patient presents with: Depression - recheck Blood Draw - FASTING for labs Initial BP 144/82 Pulse 87 Temp 98.7 ??F (37.1 ??C) (Oral) Resp 16 Ht 5' 2 (1.575 m) Wt 233 lb 1.6 oz (105.733 kg) BMI 42.63 kg/m2 SpO2 95% Estimated Body mass index is 42.63 kg/(m^2) ascalculated from the following: Height as of this encounter: 5' 2(1.575 m). Weight as of this encounter: 233 lb 1.6 oz(105.733 kg). BP completed using cuff size large Right Arm Health Maintenance reviewed - Yes: (pt is aware, she will have colonoscopy and declined mammo. Will have labs today, complete phq-9 today) Tobacco Verified: Yes Family History Updated: Yes MyChart Offered: Yes Immunizations Up to Date: Needs pneumovax Emmanuelle Pfeiffer, TRAFFIC ASSISTANT documented in this encounter Plan of Treatment Scheduled Referrals Name Type Priority Associated Diagnoses Order S [facility] GASTROENTEROLOGY ADULT Referral Routine Special screening for Ordered: 05/26/2013 REFERRAL +/- PROCEDURE malignant neoplasm s of other sites documented as of this encounter Procedures Procedure Name Priority Date/Time Associated Diagnosis Comme nts LIPID REFLEX TO Routine 05/26/2013 8:28 AM Mild major Result s for this DIRECT LDL PANEL CDT depression (H) procedure are in the results section. documented in this encounter Results Lipid panel reflex to direct LDL (05/26/2013 8:28 AM CDT) P athologist Signature Cholesterol 178 0 - 200 [facility] mg/dL CLINIC LAB Comment: LDL Cholesterol is the primary guide to therapy. The NCEP recommends further evaluation of: patients with cholesterol greater than 200 mg/dL if additional risk facto rs are present, cholesterol greater than 240 mg/dL, triglycerides greater than 1 50 mg/dL, or HDL less than 40 mg/dL. Triglycerides 143 0 - 150 mg/dL [facility] HDL Cholesterol 90 50 - 110 mg/dL [facility] LDL Cholesterol Calculated 59 0 - 129 mg/dL [facility] Comment: LDL Cholesterol is the primary guide to therapy: LDL-cholesterol goal in high risk patients is <100 mg/dL and in very high risk patients is <70 mg/dL. VLDL-Cholesterol 29 0 - 30 mg/dL [facility] Cholesterol/HDL Ratio 2.0 0.0 - 5.0 [facility] Specimen Anatomical Collection Method Collection Time Receive d Time (Source) Location / / Volume Laterality Blood specimen 05/26/2013 8:28 AM 013 8:31 (specimen) CDT AM CDT Ranjith Hughes MD LAB - BLOOD ORDERABLES Performing Organization Address City/State/ZIP Code Phon e Number [facility] [address] [place] [address] [facility] [address] [place] [address] documented in this encounter Visit Diagnoses Diagnosis Mild major depression (H) - Primary Major depressive disorder, single episod e, mild Edema GERD (gastroesophageal reflux disease) Esophageal reflux Special screening for malignant neoplasm s of other sites documented in this encounter Care Teams Traffic Maintenance Officer Relationship Specialty Start Date End Date Ranjith Hughes MD PCP - General 07/11/02 12/17/13 [address] [place] [address] documented as of this encounter
--- OUTSIDE RECORDS SUMMARY | 2022-07-19 23:00 | XMS_ITS | Encounter Summary ---
:1940 Author Organization [place] Address [address] [place] [address] Care Team Providers Name Role Phone Ranjith Hughes MD Primary Care Provider Encounter Details Date Type Department Care Team Description 01/12/2011 Results Only INTERFACED REPORT Unknown, Doctor, Social History Tobacco Use Types Packs/Day Years Used Date Smoking Tobacco: Never Alcohol Use Standard Drinks/Week Comments No 0 (1 standard drink = 0.6 oz pure alcoho l) Sex Assigned at Date Recorded Not on file documented as of this encounter Plan of Treatment Not on filedocumented as of this encounter Procedures Procedure Name Priority Date/Time Associated Diagnosis Comme nts EKG 12-LEAD, Routine 01/12/2011 8:47 AM Results f or this TRACING ONLY CDT procedure are i n the results section. documented in this encounter Results EKG 12-lead, tracing only (01/12/2011 8:47 AM CDT) Component Value Ref Range Test Analysis Performed Pathologis t Method Time At Signature Ventricular Rate 93 BPM RADIOLOGY RESULTS Atrial Rate 93 BPM RADIOLOGY RESULTS HI Interval 142 ms RADIOLOGY RESULTS QRS Duration 84 ms RADIOLOGY RESULTS QT 338 ms RADIOLOGY RESULTS QTc 420 ms RADIOLOGY RESULTS P Dime Box 7 degrees RADIOLOGY RESULTS R AXIS 2 degrees RADIOLOGY RESULTS T Dime Box 18 degrees RADIOLOGY RESULTS Interpretation Sinus rhythm RADIOLOGY ECG RESULTS Interpretation Normal ECG RADIOLOGY ECG RESULTS Interpretation Unconfirmed report - interpr etation of this ECG is computer generated - see RADIOLOGY ECG medical record for final interpretation RESULTS Specimen (Source) Anatomical Collection Method Collection Time Re ceived Time Location / / Volume Laterality 01/12/2011 8:47 AM CDT Doctor Unknown MD ECG ORDERABLES Performing Organization Address City/State/ZIP Code Phon e Number RADIOLOGY RESULTS documented in this encounter Visit Diagnoses Not on filedocumented in this encounter Care Teams Grill Associate Relationship Specialty Start Date End Date Ranjith Hughes MD PCP - General 07/11/02 12/17/13 [address] [place] [address] documented as of this encounter
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
--- OUTSIDE RECORDS SUMMARY | 2022-07-19 23:00 | XMS_ITS | Encounter Summary ---
:1940 Author Organization [place] Address [address] [place] [address] Care Team Providers Name Role Phone Ranjith Hughes MD Primary Care Provider Reason for Visit Reason Onset Date Comments Erroneous encounter-disregard 06/16/2011 Encounter Details Date Type Department Care Team Description 06/16/2011 [facility] Ranjith Hughes MD Erroneous [place] [id number] [place] [address] encounter-disregard [address] [place] [id number] [phone] Social History Tobacco Use Types Packs/Day Years [...] on filedocumented in this encounter Care Teams Warp Doffer Relationship Specialty Start Date End Date Ranjith Hughes MD PCP - General 07/11/02 12/17/13 [address] [place] [address] documented as of this encounter
--- OUTSIDE RECORDS SUMMARY | 2022-07-19 23:00 | XMS_ITS | Encounter Summary ---
:1940 Author Organization [facility] Address [address] [place] [address] Care Team Providers Name Role Phone Ranjith Hughes MD Primary Care Provider Reason for Visit Reason Onset Date Comments Panel Management 12/08/2013 Depresion, mammogram Encounter Details Date Type Department Care Team Description 12/08/2013 Telephone [facility] (Depresion, mammogram) [id number] [place] [id number] Social History Tobacco Use Types Packs/Day Years Used Date Smoking Tobacco: Never Smokeless Tobacco: Never Alcohol Use Standard Drinks/Week Comments No 0 (1 standard drink = 0.6 oz pure alcoho l) Sex Assigned at Date Recorded Not on file documented as of this encounter Miscellaneous Notes Telephone Encounter - NikkieOumou - 12/08/2013 10:55 AM CDT Panel Management Review Date of last visit with a [facility] provider: Saul on 05/26/13. Date of next visit with a [facility] provider: None. Problem List Patient Active Problem List Diagnosis ??? CONGESTIVE HEART FAILURE, UNSPEC ??? EDEMA ??? JOINT PAIN-LOWER LEG ??? GENERAL OSTEOARTHROSIS ??? Anxiety ??? Mild Major Depression ??? CARDIOVASCULAR SCREENING; LDL GOAL LESS THAN 160 ??? GERD (GASTROESOPHAGEAL REFLUX DISEASE) ??? Obesity ??? Health Skilled Nursing Health Maintenance List Health Maintenance Topic Date Due ??? Pneumovax ([facility] Assigned) 2007 ??? Dexa Scan Screening (System Assigned) 2007 ??? Mammo Screen Q2 Yr (System Assigned) 01/18/2013 ??? Phq-9 Q6 Months (No Inbasket) 11/26/2013 ??? Depression Action Plan Q1 Yr (No Inbasket) 05/26/2014 ??? Influenza Vaccine (System Assigned) 07/01/2014 ??? Advance Directive Planning Q5 Yrs (No Inbasket) 03/20/2016 ??? Colonoscopy Q3 Yr Inbasket Message 05/30/2016 ??? Tetanus Immunization (System Assigned) 02/27/2018 ??? Lipid Screen Q5 Yr Female (System Assigned) 05/26/2018 For diabetic patients with hyperlipidemia, only choose diabetes. Patient has the following on her problem list: Depression / Dysthymia review PHQ-9 SCORE (FM) 09/22/2011 02/14/2012 05/26/2013 Total Score 1 2 14 Patient is due for: PHQ9 Composite cancer screening Chart review shows that this patient is due/due soon for the following Mammogram No results found for this basename: pap Past Surgical History Procedure Date ??? C nonspecific procedure s/p x 2, spAb x 1 ??? C nonspecific procedure s/p appendectomy ??? C nonspecific procedure s/p D&C after spAb ??? Surgical history of - hernia repair, rt inguinal ??? Surgical history of - knee replacement on the rt ??? Colonoscopy 05/30/13 polyps found - repeat in 3 years Is hysterectomy listed in surgical history? No Is mastectomy listed in surgical history? No Tobacco History History Smoking status ??? Never Smoker Smokeless tobacco ??? Never Used Summary: Patient is due/failing the following: MAMMOGRAM and PHQ9 Action needed: Patient needs office visit for Depression Follow uo., Patient needs to do PHQ9. and schedule mammogram Type of outreach: Phone, spoke to patient. PHQ-9 updated and scheduled for a [facility] hospital care apt with Cindy on 12/12/13. Questions for provider review: None Please indicate [...] unspecified documented in this encounter Care Teams Highway Engineering Technician Relationship Specialty Start Date End Date Ranjith Hughes MD PCP - General 07/11/02 12/17/13 [address] [place] [address] documented as of this encounter
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
--- OUTSIDE RECORDS SUMMARY | 2022-07-19 23:00 | XMS_ITS | Encounter Summary ---
:1940 Author Organization [facility] Address [address] [place] [address] Care Team Providers Name Role Phone Ranjith Hughes MD Primary Care Provider Encounter Details Date Type Department Care Team Description 01/12/2011 Hospital Laboratory [facility] Saud Gibbs Ma rtin, [facility] Results [facility] [address] [facility] [address] [place] [address] (Wo rk) Social History Tobacco Use Types Packs/Day Years Used Date Smoking Tobacco: Never Alcohol Use Standard Drinks/Week Comments No 0 (1 standard drink = 0.6 oz pure alcoho l) Sex Assigned at Date Recorded Not on file documented as of this encounter Plan of Treatment Not on filedocumented as of this encounter Procedures Procedure Name Priority Date/Time Associated Comments Diagnosis CBC WITH PLATELETS & STAT 01/12/2011 8:45 AM R esults for this DIFFERENTIAL CDT procedure are i n the results section. TROPONIN I STAT 01/12/2011 8:45 AM Results f or this CDT procedure are i n the results section. NT PROBNP INPATIENT STAT 01/12/2011 8:45 AM Re sults for this CDT procedure are i n the results section. COMPREHENSIVE STAT 01/12/2011 8:45 AM Results for this METABOLIC PANEL CDT procedure ar e in the results section. documented in this encounter Results Troponin I (01/12/2011 8:45 AM CDT) [facility] Method Time Signature Troponin I ES <0.012 0.000 - [place] Reviewed, acceptable 0.034 [facility] ug/L [facility] Specimen Anatomical Collection Method Collection Time Receive d Time (Source) Location / / Volume Laterality 01/12/2011 8:45 AM 1 8:57 CDT AM CDT Saud Gibbs MD LAB - BLOOD ORDERABLES Performing Organization Address City/[facility]/ZIP [facility] Phon kaylin Foreman [facility] [address] [place], [place] [address] [facility] Nt probnp inpatient (01/12/2011 8:45 AM CDT) P athologist Signature N-Terminal Pro 40 0 - 900 [place] BNP Inpatient pg/mL [facility] Comment: Reference range shown and results flagge [...] Time (Source) Location / / Volume Laterality 01/12/2011 8:45 AM 1 8:57 CDT AM CDT Saud Gibbs MD LAB - BLOOD ORDERABLES Performing Organization Address City/[facility] Phon e Moriah Foreman [facility] [address] [place], [place] [address] [facility] (ABNORMAL) Comprehensive metabolic panel (01/12/2011 8:45 AM CDT) Patholo gist Method Time Signature Sodium 138 133 - 144 [place] mmol/L [facility] Potassium 4.6 3.4 - 5.3 [place] mmol/L [facility] Chloride 103 94 - 109 [place] mmol/L [facility] Carbon Dioxide 26 20 - 32 [place] mmol/L [facility] Anion Gap 9 6 - 17 [place] mmol/L [facility] Glucose 106 (H) 60 - 99 [place] mg/dL [facility] Urea Nitrogen 13 7 - 30 [place] mg/dL [facility] Creatinine 0.96 0.52 - [facility] 1.04 mg/dL [facility] GFR Estimate 58 (L) >60 [place] mL/min/1.[address] [place] [address] LAB GFR Estimate If 70 >60 [place] Black mL/min/1.[address] LAB Calcium 11.2 (H) 8.5 - 10.4 [place] mg/dL [facility] Bilirubin Total 1.2 0.2 - 1.3 [place] mg/dL [facility] Albumin 4.8 3.3 - 4.9 [place] g/dL [facility] Protein Total 8.4 6.8 - 8.8 [place] g/dL [facility] Alkaline 134 40 - 150 [place] Phosphatase U/L [facility] ALT 14 0 - 50 U/L [facility] AST 18 0 - 45 U/L [facility] Specimen Anatomical Collection Method Collection Time Receive d Time (Source) Location / / Volume Laterality 01/12/2011 8:45 AM 1 8:57 CDT AM CDT Saud Gibbs MD LAB - BLOOD ORDERABLES Performing Organization Address City/State/ZIP Code [facility] e Number [address] [facility] (ABNORMAL) CBC with platelets differential (01/12/2011 8:45 AM CDT) [facility] gist Method Time Signature WBC 8.2 4.0 - [facility] 11.0 [facility] 10e9/L [facility] RBC Count 4.50 3.8 - 5.2 [place] 10e12/L [facility] Hemoglobin 13.8 11.7 - [facility] 15.7 g/dL [facility] Hematocrit 42.0 35.0 - [facility] 47.0 % [facility] MCV 93 78 - 100 [facility] MCH 30.7 26.5 - [facility] 33.0 pg [facility] MCHC 32.9 31.5 - [facility] 36.5 g/dL [facility] RDW 13.6 10.0 - [facility] 15.0 % [facility] Platelet Count 129 (L) 150 - 450 [place] 10e9/L [facility] Diff Method Automated [facility] % Neutrophils 71.1 40 - 75 % [facility] % Lymphocytes 21.2 20 - 48 % [facility] % Monocytes 6.8 0 - 12 % [facility] % Eosinophils 0.7 0 - 6 % [facility] % Basophils 0.2 0 - 2 % [facility] Absolute 5.8 1.6 - 8.3 [place] Neutrophil 10e9/L [facility] Absolute 1.7 0.8 - 5.3 [place] Lymphocytes 10e9/L [facility] Absolute 0.6 0.0 - 1.3 [place] Monocytes 10e9/L [facility] Absolute 0.1 0.0 - 0.7 [place] Eosinophils 10e9/L [facility] Absolute 0.0 0.0 - 0.2 [place] Basophils 10e/L [facility] Specimen Anatomical Collection Method Collection Time Receive d Time (Source) Location / / Volume Laterality 01/12/2011 8:45 AM 1 8:57 CDT AM CDT Saud Gibbs MD LAB - BLOOD ORDERABLES Performing Organization Address City/State/ZIP Code Phon e Number [place] [address] [address] [place], [place] [address] [facility] documented in this encounter Visit Diagnoses Not on filedocumented in this encounter Care Teams Business Support Associate Relationship Specialty Start Date End Date Ranjith Hughes MD PCP - General 07/11/02 12/17/13 [address] [place] [address] documented as of this encounter
--- OUTSIDE RECORDS SUMMARY | 2022-07-19 23:00 | XMS_ITS | Encounter Summary ---
:1940 Author Organization [facility] Address [address] [place] [address]. [place] [address] Care Team Providers Name Role Phone Ranjith Hughes MD Primary Care Provider Encounter Details Date Type Department Care Team Description 01/12/2011 Emergency room [facility] Results [facility] JENNIFER GRIDER [address] [place], [place] [address] Social History Tobacco Use Types Packs/Day Years Used Date Smoking Tobacco: Never Alcohol Use Standard Drinks/Week Comments No 0 (1 standard drink = 0.6 oz pure alcoho l) Sex Assigned at Date Recorded Not on file documented as of this encounter Progress Notes Interface, Coke Loader - 01/13/2011 8:06 PM CDT FINAL Chief Complaint - History of Present Illness - MD Time:: 08:08 - Chief Complaint: Cough, shortness of breath, fatigue - HPI: Brady Escobar is a 70-year-old female who presents to the emergency department for evaluation of above stated complaints. The patient reports having productive cough with green sputum and cold symptoms for one month during which she was treated with 10-day course of clindamycin and now starting to get short of breath and fatigued. She further explains that she has been feeling tired, sweaty and short of breath with exertion since last week. She states that she could no do her regular activities of daily living anymore as she is having hard time walking around or driving as she is having symptoms of cough, sore gland which ends up giving her an ear pain as well as a headache, sore back and nausea. However, she is not having any chest pain, palpitations or leg swelling. The patient was seen and evaluated with a chest x-ray at her primary care doctor yesterday which showed mild cardiomegaly and slight venous hypertension no pneumonia. During her visit, she reports that it was mentioned that she might need IV antibiotic to treat for possible infection. Additionally, patient reports that her just recently got over similar symptoms as hers. - .: PE and DVT Risk Factors: The patient denies any personal history of pulmonary embolism or deep vein thrombosis. The patient denies any history of recent travel, trauma or injury to the lower extremities. She also denies any surgery, hospitalization, or immobilization within the past 60 days. Medications - Medication: Sertraline - Medication: Antidepressant - Medication: Omeprazole - Medication: Advil Allergies Ampicillin;Hives penicillin;Hives Keflex;Hives tetracycline;Hives Erythromycin;Hives Zoloft;Hives Wellbutrin;Hives Celexa;Hives Effexor;Hives Risperdal;Rash cephalosporins;Hives Past Medical/Family History - -: 1. Bilateral knee replacement 2. Left foot surgery 3. Arthritis 4. Chronic Back Pain 5. Depression 6. GERD 7. Pneumonia at young age Social History - - The patient is accompanied by her . - Is negative for Tobacco use, Alcohol use - - never smoked Review of Systems - - All other systems negative except - General Negative for fever, Positive for malaise/fatigue - Cardiovascular Negative for chest pain, Negative for leg swelling - Respiratory Positive for cough, Positive for shortness of breath - Gastrointestinal Positive for nausea - Musculoskeletal Positive for back pain Vital Signs-Triage Temp F: 98.6 degrees F Temp C: 37 degrees C Temp site: Oral Heart Rate: 64 bpm Resp Rate: 24 Pulse Oximetry: 95 Oxygen Delivery: Room air Cuff Systolic BP mmH Cuff Diastolic BP mmH Physical Exam - Constitutional Well developed, nourished - HENT atraumatic, right external ear normal, left external ear normal, oropharynx clear and moist, nose normal, TM's normal, face and scalp normal. - Eyes pupils equal, round, and reactive to light, conjunctiva normal, extraocular movements normal, no right discharge present, no left discharge present, no scleral icterus present - Neck range of motion normal, supple, no cervical adenopathy present - Cardiovascular normal rate, regular rhythm, heart sounds normal, no murmur present, no rub present - Pul/Chest Wall effort normal, no respiratory distress present, Faint expiratory wheeze, no consolidation or rhonchi heard. - Abdominal soft, bowel sounds present, no distention present, no tenderness present, no rebound present, no guarding present, no mass present - Musculoskeletal normal range of motion, no deformity present, mild edema to her lower extremities. - Neurologic alert, oriented x3, Surya Coma Score is 15, DTR's normal, no cranial nerve deficit present, normal coordination, normal strength, normal sensory - Skin warm, dry, non-diaphoretic, no erythema present, no rash present - . Slightly anxious. Laboratory information - -: CBC: Platelet count 129 low, o/w WNL (WBC 8.2, HGB 13.8) CMB: Glucose level 106 high, GFR estimated 58 low, Calcium level: 11.2 high, o/w WNL (Cr 0.96) BNP: 40 WNL Troponin: < 0.012 WNL Diagnostic information - -: ECG: Indication: shortness of breath Findings: Normal sinus rhythm with a ventricular rate of 93 bpm. Normal ECG. R wave axis: 2 Imaging: CT Chest with contrast: IMPRESSION: 1. No evidence for pulmonary embolus. 2. Tiny left pleural effusion. 3. Nodular infiltration and atelectasis in the left upper lobe which could be secondary to pneumonitis. Underlying neoplasm cannot be excluded. Followup scan recommended. 4. Multiple mildly prominent lymph nodes in the upper mediastinum. 5. Scattered fibrotic changes in the left lower lobe with mild bronchiectasis in the lower lobes. 6. Moderate hiatal hernia. 7. Hepatic and left renal cysts. Reading per Dr. Mazariegos, Radiology. ED Course: Interventions/Consultations/Procedures - -: Interventions: Albuterol 2.5mg/3 mL, Inhalation solution, Nebulizer Levaquin 750 mg IV injection ED Course: I reviewed the patient's medical record. The patient was placed on a ux designer and continuous pulse oximeter. Patient was given supplemental oxygen via nasal canula. IV inserted. 08:08 AM The patient was seen and examined by myself. I discussed the course of care with the patient including laboratory and diagnostic studies. She understands and is agreeable to the plan. 10:08 AM I spoke to Dr. Hughes, patient's primary care doctor. Recheck. I discussed the laboratory and radiology results with the patient and she understands. The patient will be discharged home to follow up with primary care doctor per discharge instructions. Indications for return to the ED were discussed and the patient understands. All questions were answered prior to discharge. Medical Decision Making - -: Ms. Escobar comes in with cough lasting for a month and low energy. She was set up to have PICC line placed and IV Levaquin after being seen by her doctor. I went ahead and did further evaluation because I was not clear as to if we had a specific diagnosis. Part of my evaluation, I did CBC, chemistry panel, d-dimer, troponin, BNP which were negative. No sign of heart failure. CT scan did show what appeared to be pneumonitis in the left upper lobe as well as reactive lymph nodes making them more suggestive of infectious etiology. This could be viral or bacterial. Because it has been going on for a month, I gave her Levaquin 750 mg IV as above here in the emergency department and we were going to set her up with a PICC line but after discussing with her plan, she preferred to have oral medication and I felt that was reasonable. I already had spoken to Dr. Hughes and we made a plan to have oral medication at this point. Diagnosis - -: 1. Pneumonitis with persistent cough Disposition Plan - -: Disposition home. Follow up in 5 days with PMD. Return to the ER, if worsening. Prescriptions: 1. Levaquin 500 mg tablet PO every day x 9 days 2. Diflucan 200 mg tablet PO one time only # 2 for vaginitis. Scribe Disclosure I, Julia Lucio ,am serving as a scribe to document services personally performed by Dr. Saud Reagan , based on my observations and the provider's statements to me. Electronically signed on 01/13/2011 20:06 by SAUD REAGAN MD As dictated by JULIA MARTE MT: MG Name: BRADY ESCOBAR MRN: [id number] Account: [id number] : 1940 Visit Date: 01/12/2011 Document: [id number] documented in this encounter Plan of Treatment Not on filedocumented as of this encounter Visit Diagnoses Not on filedocumented in this encounter Care Teams Pull Out Operator Relationship Specialty Start Date End Date Ranjith Hughes MD PCP - General 07/11/02 12/17/13 [address] [place] [address] documented as of this encounter
--- OUTSIDE RECORDS SUMMARY | 2022-07-19 23:01 | XMS_ITS | Encounter Summary ---
:1940 Author Organization [place] Address [facility] [place] [address] Care Team Providers Name Role Phone Ranjith Hughes MD Primary Care Provider Encounter Details Date Type Department Care Team Description 02/20/2007 Historic Notes INTERFACED REPORT Interface, Transcript on, Social History Tobacco Use Types Packs/Day Years Used Date Smoking Tobacco: Never Alcohol Use Standard Drinks/Week Comments No 0 (1 standard drink = 0.6 oz pure alcoho l) Sex Assigned at Date Recorded Not on file documented as of this encounter Progress Notes Interface, Cardroom Plastic Card Grader - 12/19/2010 3:25 PM CDT CC Met with patient to discuss home CPM machine. Patient would like to use [facility] for home CPM machine. Discharged planned for 02/20 Spoke with Yoko at [facility] gave referal and faxed orders. No further discharged planning required. [Signature] Author:Pam Babin (RN) [Signed 20-Feb-2007 09:43] Interface, Cardroom Plastic Card Grader - 12/19/2010 3:25 PM CDT Patient Status Patient Status - Physical status Stable (s/s of potential complications absent or manageable) - Psychosocial status Stable Discharge Planning - Discharge From: [facility] - Patient Care Unit: med/surg 2 - PCU - Discharge To: Home/Alternative home - Method of discharge: Wheel Chair - Transportation: Private Discharge Information Discharge Information - Valuables returned Valuables returned - Discharge information Discharge instructions reviewed with pt/family/so - Accompanied by Spouse - Mode of Travel Wheelchair Medications and Prescriptions Medications and Prescriptions - Medications and Prescriptions given to patient Prescriptions Support Services Support Services - Is home care recommended? No - Supplies sent/ordered No - Equipment sent/ordered Yes, home CPM - Equipment vendor [facility] - Equipment vendor phone [phone] number - Equipment vendor fax number [phone] - Equipment arranged by [facility] [employer] - Other Services arranged No Special Care Needs and Instructions - Diet Instructions: regular diet, drink plenty of fluids. - Activity Instructions: As tolerated, use walker. Continue with leg exercises and CPM - Report temp if greater 101 degrees F than: - Signs or symptoms to call Incision opens, is draining anything the physician: cream, yellow, or green and is foul smelling. Fever with chills Skin around incision is red, hot, swollen and more painful. Calf pain or sudden shortness of breath Continue using ice Do not rest with pillow under knee. - Who patient should call: Dr. Palmer - Phone number of who patient [phone]- should call: - Additional instructions for Ok to shower, not bathes wound care: - Additional instructions for May apply gauze to incision for comfort dressings: - Is patient going home with No IV Catheter?: Follow Up Care - Physician name: Dr. Palmer call for appointment [phone] - When to see physician: 7-10 days Signatures Nadia Hancock (RN) Authored: Patient Status, Discharge Planning, Discharge Information, Medications and Prescriptions, Special Care Needs and Instructions, Follow Up Care Pam Babin (RN) Authored: Support Services Interface, Cardroom Plastic Card Grader - 12/19/2010 3:24 PM CDT General Information General Information - Type of Note Initial Evaluation - Patient Profile Review Yes - Onset Date 18-Feb-07 - Referring Physician Dr. Palmer - Patient/Family Goals home - History of Present Problem pt with DJD requiring L TKA - Treatment Diagnosis decreased ADL I - Precautions/Limitations knee immobilizer - Weight Bearing Status Weight bearing as tolerated; L LE Cognitive Cognitive Status - Level of Consciousness Alert - Follows Commands and 100% of the time; Able to follow Answers Questions multi-step instructions - Personal Safety/Judgement Intact Muscle Tone Tone - Tone Tone was appropriate in all areas Range of Motion (Assessment) Comments: UE WFL Strength (Assessment) Comments: UE WFL ADL: Prior Level of Functioning Self Care: Prior Level of Functioning - Prior level of Independent functioning: - Bathing: Lower Body: Independent - Oral Care: Independent - Toileting: Independent - Eating: Independent - Bed Mobility: Independent - Grooming: Independent - Dressing: Upper Body: Independent - Dressing: Lower Body: Independent - Comments: Pt. lives with spouse and is I all ADLs/IALDs, driving and childcare. Pt. has a shower chair ADL: Current Level of Functioning Self Care: Current Level of Functioning - Toileting: Independent - Eating: Independent - Grooming: Independent - Dressing: Upper Body: Independent - Dressing: Lower Body: Independent - Comments: Pt able verbalize energy conservation techniques and demonstrated good walker safety (handouts provided) Functional Performance Transfer - Walk-In Shower Stand by assist Transfer: Prognosis/Impression Impression - Skilled Criteria for No Therapy Intervention Met - Criteria not met for No problems identified which require skilled therapy skilled intervention intervention - Assessment Pt. demonstrated I to standby assist self cares with minimal training. - Discharge Destination Home - Risks and Benefits of Yes Treatment have been explained. - Patient, family and/or Yes staff in agreement with Plan of Care Katie Montero (Therapist) Authored: General Information, Cognitive, Muscle Tone, Range of Motion (Assessment), Strength (Assessment), ADL: Prior Level of Functioning, ADL: Current Level of Functioning , Functional Performance, Prognosis/Impression Interface, Cardroom Plastic Card Grader - 12/19/2010 3:23 PM CDT Discharge Summary Discharge - Reason for Discharge Discharge from facility, to home - Progress toward achieving Goals met short term goals/long wall shear operator goals - Continued Therapy Yes Recommended - Rationale/ Recommendations outpatient PT for TKA Roselyn Clayton (PT) Authored: Discharge Summary documented in this encounter Plan of Treatment Not on filedocumented as of this encounter Visit Diagnoses Not on filedocumented in this encounter Care Teams Financial Counselor Relationship Specialty Start Date End Date Ranjith Hughes MD PCP - General 07/11/02 12/17/13 [address] [place] [address] documented as of this encounter
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
--- OUTSIDE RECORDS SUMMARY | 2022-07-19 23:01 | XMS_ITS | Encounter Summary ---
:1940 Author Organization [place] Address [facility] [place] [address] Care Team Providers Name Role Phone Ranjith Hughes MD Primary Care Provider Reason for Visit Reason Onset Date Comments Formulary Issue 01/19/2010 celebrex Encounter Details Date Type Department Care Team Description 01/19/2010 Telephone [facility] Ranjith Hughes Formul ary Issue [facility] [place] MD (celebrex) [address] [id number] Social History Tobacco Use Types Packs/Day Years Used Date Smoking Tobacco: Never Alcohol Use Standard Drinks/Week Comments No 0 (1 standard drink = 0.6 oz pure alcoho l) Sex Assigned at Date Recorded Not on file documented as of this encounter Miscellaneous Notes Telephone Encounter - Nimo Davis - 01/19/2010 11:10 AM CDT Called [employer] [facility] medicare- approved for one year, pharmacy notified. Nimo Davis RN documented in this encounter Plan of Treatment Not on filedocumented as of this encounter Visit Diagnoses Not on filedocumented in this encounter Care Teams Police Captain Precinct Relationship Specialty Start Date End Date Ranjith Hughes MD PCP - General 07/11/02 12/17/13 [address] [place] [address] documented as of this encounter
--- OUTSIDE RECORDS SUMMARY | 2022-07-19 23:01 | XMS_ITS | Encounter Summary ---
:1940 Author Organization [place] Address [address] [place] [address] Care Team Providers Name Role Phone Ranjith Hughes MD Primary Care Provider Encounter Details Date Type Department Care Team Description 03/08/2009 Historic Results INTERFACED REPORT Kathy Mosqueda MD [facility] [address] [place], [place] [address] (Wo rk) Social History [...] Procedure Name Priority Date/Time Associated Comments Diagnosis INR Routine 03/08/2009 11:36 Results for this AM CDT procedure are i n the results section. PARTIAL THROMBOPLASTIN Routine 03/08/2009 11:36 R esults for this TIME AM CDT procedure are i n the results section. HEMOGLOBIN Routine 03/08/2009 11:36 Results for this AM CDT procedure are i n the results section. BASIC METABOLIC PANEL Routine 03/08/2009 11:36 Re sults for this AM CDT procedure are i n the results section. documented in this encounter Results (ABNORMAL) Basic metabolic panel (03/08/2009 11:36 AM CDT) P athologist Signature Sodium 138 133 - 144 MISYS mmol/L Potassium 4.7 3.4 - 5.3 MISYS mmol/L Chloride 104 94 - 109 MISYS mmol/L Carbon Dioxide 27 20 - 32 MISYS mmol/L Glucose 90 60 - 99 MISYS mg/dL Urea Nitrogen 18 7 - 30 MISYS mg/dL Creatinine 0.89 0.52 - 1.04 MISYS mg/dL Comment: New IDMS-traceable calibration beginning 01/30/08 GFR Estimate 63 >60 mL/min/1.7m2 MISYS GFR Estimate If Black 77 >60 mL/min/1.7m2 M ISYS Calcium 11.4 (H) 8.5 - 10.4 mg/dL MISYS Anion Gap 7 6 - 17 mmol/L MISYS Specimen Anatomical Collection Method Collection Time Receive d Time (Source) Location / / Volume Laterality 03/08/2009 11:36 03/08/2009 AM CDT 11:47 AM CDT Darnell Mosqueda MD LAB - BLOOD ORDERABLES Performing Organization Address City/[facility]/ZIP Code Phon e Number MISYS Hemoglobin (03/08/2009 11:36 AM CDT) P athologist Signature Hemoglobin 14.4 11.7 - 15.7 MIS[facility] g/dL Specimen Anatomical Collection Method Collection Time Receive d Time (Source) Location / / Volume Laterality 03/08/2009 11:36 03/08/2009 AM CDT 11:47 AM CDT Darnell Mosqueda MD LAB - BLOOD ORDERABLES Performing Organization Address City/[facility]/ZIP Code Phon e Number MISYS INR (03/08/2009 11:36 AM CDT) P athologist Signature INR 0.95 0.86 - 1.14 MIS[facility] Specimen Anatomical Collection Method Collection Time Receive d Time (Source) Location / / Volume Laterality 03/08/2009 11:36 03/08/2009 AM CDT 12:01 PM CDT Darnell Mosqueda MD LAB - BLOOD ORDERABLES Performing Organization Address City/State/ZIP Code Phon e Number MISYS Partial thromboplastin time (03/08/2009 11:36 AM CDT) P athologist Signature PTT 27 22 - 37 sec MISYS Specimen Anatomical Collection Method Collection Time Receive d Time (Source) Location / / Volume Laterality 03/08/2009 11:36 03/08/2009 AM CDT 12:01 PM CDT Darnell Mosqueda MD LAB - BLOOD ORDERABLES Performing Organization Address City/State/ZIP Code Phon e Number MISYS documented in this encounter Visit Diagnoses Not on filedocumented in this encounter Care Teams Sheet Cutting Operator Relationship Specialty Start Date End Date Ranjith Hughes MD PCP - General 07/11/02 12/17/13 [address] [place] [address] documented as of this encounter
--- OUTSIDE RECORDS SUMMARY | 2022-07-19 23:01 | XMS_ITS | Encounter Summary ---
:1940 Author Organization [place] Address [address] [place] [address] Care Team Providers Name Role Phone Ranjith Hughes MD Primary Care Provider Encounter Details Date Type Department Care Team Description 08/09/2010 Emergency room [facility] Results EMERGENCY PHYSI JENNIFER GRIDER [address] [place], [place] [address] Social History Tobacco Use Types Packs/Day Years Used Date Smoking Tobacco: Never Alcohol Use Standard Drinks/Week Comments No 0 (1 standard drink = 0.6 oz pure alcoho l) Sex Assigned at Date Recorded Not on file documented as of this encounter Progress Notes Interface, Vice President Of Business Development - 08/09/2010 1:58 AM CAR BUILDER FINAL Chief Complaint - History of Present Illness - MD Time:: 00:06 - Chief Complaint: Headache, Cough - HPI: Brady Escobar is a 70 y. o. female with a history of chronic back pain who presents at [facility] to the ED for evaluation of cough and headache. The patient states she has had a cough and congestion with associated green sputum production for the past 24 to 36 hours. She also complains of headache with radiation of this pain into here ears. She denies any radiation of this head pain down into her neck She notes she has also felt feverish, but denies any fever currently here in the ED. She also complains of associated nausea but has not yet vomited. Here in the ED, she rates her overall pain as a 6 out of 10. The patient denies any chest pain but complains of a constant, feeling of having to cough. The patient also denies any chills, malaise as well as any hemoptysis. Medications - Medications: Zoloft Celebrex Zegmed Omeprazole Allergies Ampicillin;Hives penicillin;Hives Keflex;Hives tetracycline;Hives Erythromycin;Hives Zoloft;Hives Wellbutrin;Hives Celexa;Hives Effexor;Hives Risperdal;Rash cephalosporins;Hives Past Medical/Family History - H is positive for: Arthritis, Chronic Back Pain, Depression, GERD - Family History: No family history was provided. Review of Systems - - All other systems negative except - General Negative for fever, Negative for chills, Negative for malaise/fatigue - HENT Positive for headaches, Positive for ear pain - Cardiovascular Negative for chest pain - Respiratory Positive for cough, Negative for hemoptysis, Positive for sputum production - Gastrointestinal Positive for nausea, Negative for vomiting - Musculoskeletal Negative for neck pain - ROS Note Positive for Back Pain (Chronic) Vital Signs-Triage Temp F: 98.6 degrees F Temp C: 37 degrees C Temp site: Oral Heart Rate: 98 bpm Resp Rate: 22 Pulse Oximetry: 100 Oxygen Delivery: Room air Cuff Systolic BP mmH Cuff Diastolic BP mmH Physical Exam - Constitutional no distress present - HENT atraumatic, right external ear normal, left external ear normal, oropharynx clear and moist - Eyes pupils equal, round, and reactive to light, conjunctiva normal, extraocular movements normal, no scleral icterus present - Neck range of motion normal, no jugular vein distention present, no cervical adenopathy present - Cardiovascular normal rate, regular rhythm, heart sounds normal, no murmur present, no rub present, no gallop present - Pul/Chest Wall effort normal, breath sounds normal, Chest sounds clear, despite the patient's cough. - Abdominal soft, bowel sounds present, no distention present, no tenderness present, no rebound present, no guarding present, no mass present - Neurologic alert, oriented x3, no cranial nerve deficit present, normal coordination, normal strength, normal sensory - Skin warm, dry, no rash present, normal color present - Heme/Lymph no lymphadenopathy Laboratory information - -: CBC: Platelet Count 113 low, o/w WNL (WBC 6.9, HGB 13.7) BMP: Ca 11.0 high, o/w WNL (Creatinine 0.92) Blood Cultures: Pending Diagnostic information - -: Imaging: CXR: Negative. ED Course: Interventions/Consultations/Procedures - -: Interventions: Duoneb 2.5 mg/3 ml Neb ED Course: IV inserted and blood drawn. The patient was placed on oxygen via nasal cannula and continuous blood pressure monitoring and pulse oximetry. The patient was sent for a CXR while in the emergency department, findings above. The patient reported good relief of symptoms after the above interventions. Rechecked the patient, findings and plan explained to the patient and significant other. Patient discharged home, status improved, with instructions regarding supportive care, medications, and reasons to return as well as the importance of close follow-up were reviewed. Medical Decision Making - -: The patient presents with history and physical exam as noted above. Differential diagnosis includes sinusitis, bronchitis, or pneumonia. Diagnostic eval reveals no evidence of pneumonia on chest x-ray. laboratory values are outlined above as well. The patient received treatments as noted above with improvement in her symptoms. I reviewed the results and diagnostic findings with the patient and feel she is deemed safe to be discharged home with a prescription for Clindamycin and Albuterol MDI, which were provided. She is to follow up with her primary care provider within the next week. Discharge instructions regarding sinusitis and bronchitis are provided. The patient is discharged home in stable condition with good prognosis Diagnosis - -: 1. Sinusitis and bronchitis. Scribe Disclosure I, Tim Quiroz, am serving as a scribe to document services personally performed by Dr. De Santiago, based on my observations and the provider's statements to me. Electronically signed on 08/09/2010 01:58 by ALEXUS DE SANTIAGO MD As dictated by TIM QUIROZ MT: Name: BRADY ESCOBAR MRN: [id number] Account: [id number] : 1940 Visit Date: 08/09/2010 Document: [id number] BUILDER documented in this encounter Plan of Treatment Not on filedocumented as of this encounter Visit Diagnoses Not on filedocumented in this encounter Care Teams Ballpoint Pen Cartridge Tester Relationship Specialty Start Date End Date Ranjith Hughes MD PCP - General 07/11/02 12/17/13 [address] [place] [address] documented as of this encounter
--- OUTSIDE RECORDS SUMMARY | 2022-07-19 23:01 | XMS_ITS | Encounter Summary ---
:1940 Author Organization [place] Address [address] [place] [address]. [place] [address] Care Team Providers Name Role Phone Ranjith Hughes MD Primary Care Provider Encounter Details Date Type Department Care Team Description 04/08/[address] [facility] Results EMERGENCY PHYSI JENNIFER GRIDER [address] [place] [address] (Wo rk) Social History Tobacco Use Types Packs/Day Years Used Date Smoking Tobacco: Never Alcohol Use Standard Drinks/Week Comments No 0 (1 standard drink = 0.6 oz pure alcoho l) Sex Assigned at Date Recorded Not on file documented as of this encounter Progress Notes Interface, Green Feed Attendant - 07/08/2009 7:07 AM CDT FINAL CHIEF COMPLAINT: Right ankle and foot pain. HISTORY OF PRESENT ILLNESS: Brady Escobar is a 68-year-old female who has had surgery on her left ankle. She uses a walker and has a put a lot of pressure on her right ankle and now she is having right ankle and foot pain. No falls, no injuries. No other complaints. PAST MEDICAL HISTORY: Positive for right and left knee surgery and recent left ankle surgery. PAST SURGICAL HISTORY: As stated above. SOCIAL HISTORY: The patient lives alone, but her daughter lives in [place]. FAMILY HISTORY: Negative. MEDICATIONS: The patient has been taking Vicodin at home but she is pretty much out. ALLERGIES: Vancomycin, really sensitive to a lot of medications she says and penicillin. REVIEW OF SYSTEMS: As noted in HPI. All other systems are negative. PHYSICAL EXAMINATION: GENERAL: The patient is alert and cooperative. VITAL SIGNS: The patient's blood pressure is 142/90, pulse 103, respirations 24, temperature 98.1 and O2 saturation is 95% on room air. HEENT: Head is normocephalic and atraumatic. Pupils are equal, round and reactive to light. EOMs are intact. Oropharynx is normal. NECK: Normal. CARDIOPULMONARY: Normal. GASTROINTESTINAL: Normal. NEUROLOGIC: Normal. SKIN: Normal. MUSCULOSKELETAL: Normal with exception of the right and left foot. She has a cast on her left foot.Her right ankle is tender on the lateral side. No swelling at this time. Decreased range of motion secondary to pain. EMERGENCY DEPARTMENT COURSE: The patient had an x-ray of the ankle completed. I cannot appreciate any acute fractures present. At this time, I think this is secondary to overuse. I am going to have her continue her medications and her daughter is going to have to stay with her or maybe she can stay at her daughter's to help her with transfers. She does already have a wheelchair at home. Just try take it as easy as possible and the main transfers would be only just to the bathroom and back. I suggested using a leg Banda and she already has 1 of those as well, but she does not like to use it. DIAGNOSIS: Right ankle and foot pain secondary to overuse. PLAN: As outlined above. Follow up with primary care physician in 3-5 days, but return here if paingets worse. Electronically signed on 07/08/2009 07:07 by ZELDA SCHMITZ MD MT: JEOVANNY#[id number] Name: BRADY ESCOBAR MRN: [id number] Account: [id number] : 1940 Visit Date: 04/08/2009 Document: [id number] cc: Primary documented in this encounter Plan of Treatment Not on filedocumented as of this encounter Visit Diagnoses Not on filedocumented in this encounter Care Teams Canned Food Reconditioning Inspector Relationship Specialty Start Date End Date Ranjith Hughes MD PCP - General 07/11/02 12/17/13 [address] [place] [address] documented as of this encounter
--- OUTSIDE RECORDS SUMMARY | 2022-07-19 23:01 | XMS_ITS | Encounter Summary ---
:1940 Author Organization [facility] Address [address] [place] [address]. [place] [address] Care Team Providers Name Role Phone Ranjith Hughes MD Primary Care Provider Reason for Visit Reason Comments Pre-Op Exam 03/08/09 Encounter Details Date Type Department Care Team Description 02/24/2009 Office Visit [facility] Ranjith Hughes, Other Specified Clinic Adri Reynoso MD Pre-Operative [address] [facility] [id number] [place] [address] Examination (Primary [place], [place], [place] Dx) [phone] Social History Tobacco Use Types Packs/Day Years Used Date Smoking Tobacco: Never Alcohol Use Standard Drinks/Week Comments No 0 (1 standard drink = 0.6 oz pure alcoho l) Sex Assigned at Date Recorded Not on file documented as of this encounter Last Filed Vital Signs Vital Sign Reading Time Taken Comments Blood Pressure 136/82 02/24/2009 3:53 PM CDT Pulse - - Temperature - - Respiratory Rate - - Oxygen Saturation - - Inhaled Oxygen Concentration - - Weight 88.5 kg (195 lb) 02/24/2009 3:53 PM CDT Height 160 cm (5' 3) 02/24/2009 3:53 PM CDT Body Mass Index 34.54 02/24/2009 3:53 PM CDT documented in this encounter Progress Notes Kristi Cruz - 02/24/2009 3:56 PM CDT PRE-OP EVALUATION: Today's date: 02/24/2009 Lee Ann Herndon (: 1940) presents for pre-operative evaluation as requested by Dr. Darnell Mosqueda M.D.. She requires evaluation and anesthesia clearance prior to undergoing surgery/procedure for treatment of Left Foot . Proposed procedure:Repair left foot and ankle Date of Surgery/ Procedure: 03/08/09 Time of Surgery/ Procedure: 11am Hospital/Surgical Facility: [facility] Fax number for surgical facility: Primary Physician: Dr. Hughes Type of Anesthesia Anticipated: Spinal or general? History of anesthesia complications: NONE History of abnormal bleeding: YES: Personal HX - last knee surgery, no transfusion needed History of blood transfusions: NO Patient has a Health Care Directive or Living Will: NO 1- NO - Do you ever have any pain or discomfort in your chest? 2- NO - Have you ever had a severe pain across the front of your chest lasting for half an hour or more? 3- YES - Do you have swelling in your feet or ankles at times? 4- NO - Are you troubled by shortness of breath when: walking on the level/ up a slight hill/ at night? 5- NO - Does your chest ever sound wheezy or whistling? 6- NO - Do you currently have a cold, bronchitis or other respiratory infection? 7- NO - Have you had a cold, bronchitis or other respiratory infection within the last 2 weeks? 8- NO - Do you usually have a cough? 9- YES - Do you sometimes get pains in the calves of your legs when you walk? 10-NO - Do you or anyone in your family have previous history of blood clots? 11-NO - Do you or does anyone in your family have serious bleeding problem such as prolonged bleeding following surgeries or cuts? 12-NO - Have you ever had problems with anemia or been told to take iron pills? 13-NO - Have you had any abnormal blood loss such as black, tarry or bloody stools, or abnormal vaginal bleeding? 14-NO - Have you or any of your relatives ever had problems with anesthesia? 15-NO - Do you snore or stop breathing at night? 16-YES - Do you have any prosthetic heart valves or joints? Knees 17-NO - Is there any chance that you may be ? HPI: See problem list for active medical problems. Problems all longstanding and stable, except as noted/documented. See ROS for pertinent symptoms related to these conditions. . Patient Active Problem List Diagnoses Date Noted ??? MED EXAM NEC-ADMIN PURP [V70.3] 12/19/2004 ??? CONGESTIVE HEART FAILURE, UNSPEC [428.0] 10/23/2003 ??? EDEMA [782.3] 10/23/2003 ??? DEPRESSIVE DISORDER NEC [311] 10/23/2003 ??? JOINT PAIN-LOWER LEG [719.46] 10/23/2003 ??? GENERAL OSTEOARTHROSIS [715.00] 10/23/2003 Past Medical History Diagnosis Date ??? Esophageal Reflux ??? Depressive Disorder, not Elsewhere Classified Past Surgical History Procedure Date ??? Nonspecific procedure s/p x 2, spAb x 1 ??? Nonspecific procedure s/p appendectomy ??? Nonspecific procedure s/p D&C after spAb ??? Surgical history of - hernia repair, rt inguinal ??? Surgical history of - knee replacement on the rt Current outpatient prescriptions Medication Sig ??? LEXAPRO 20 MG OR TABS ONE DAILY ??? PRILOSEC 20 MG OR CPDR 1 TAB PO QD (Once per day) OTC products: None, except as noted above Allergies Allergen Reactions ??? Penicillins ??? Cephalosporins keflex ??? Erythromycin ??? Tetracyclines ??? Sympathomimetics resperidol ??? Ethanol zoloft ??? Clindamycin Diarrhea ??? Levaquin Yeast infection Latex Allergy: NO History Substance Use Topics ??? Tobacco Use: Never ??? Alcohol Use: No History Drug Use Not on file REVIEW OF SYSTEMS: C: NEGATIVE for fever, chills, change in weight E/M: NEGATIVE for ear, mouth and throat problems R: NEGATIVE for significant cough or SOB CV: NEGATIVE for chest pain, palpitations or peripheral edema MUSCULOSKELETAL: per surgery EXAM: BP 136/82 Ht 5' 3 (1.6 m) Wt 195 lb (88.451 kg) LMP Postmenopausal GENERAL APPEARANCE: healthy, alert and no distress HENT: ear canals and TM's normal and nose and mouth without ulcers or lesions RESP: lungs clear to auscultation - no rales, rhonchi or wheezes CV: regular rate and rhythm, normal S1 S2, no S3 or S4 and no murmur, click or rub ABDOMEN: soft, nontender, no HSM or masses and bowel sounds normal MS: per surgery NEURO: Normal strength and tone, sensory exam grossly normal, mentation intact and speech normal DIAGNOSTICS: EKG: appears normal, NSR, normal axis, normal intervals, no acute ST/T changes c/w ischemia, no LVH by voltage criteria, unchanged from previous tracings IMPRESSION: Clear for surgery For above listed surgery and anesthesia: Patient is at MODERATE risk for surgery/procedure and perioperative/procedure complications. RECOMMENDATIONS: Approval given to proceed with proposed procedure, without further diagnostic evaluation. Signed Electronically by: Ranjith Hughes MD Copy of this evaluation report is provided to requesting physician. HPI ROS Physical Exam documented in this encounter Nursing Notes 02/24/2009 4:00 PM CDT >> KRISTI CRUZ Wed February 24, 2009 3:59 PM Patient presents with: Pre-Op Exam - 03/08/09 Initial BP 136/82 Ht 5' 3 (1.6 m) Wt 195 lb (88.451 kg) LMP Postmenopausal Body mass index is34.54 kg/(m^2).. BP completed using cuff size large Kristi Woods CMA documented in this encounter Plan of Treatment Not on filedocumented as of this encounter Procedures Procedure Name Priority Date/Time Associated Diagnosis Comme nts HCL HEMOGLOBIN Routine 02/24/2009 4:10 PM Other Specified Resu lts for this NONLAB CDT Pre-Operative procedure are in Examination the results section. ZZC Routine 02/24/2009 4:04 PM Other Specified Result s for this ELECTROCARDIOGRAM, CDT Pre-Operative procedur e are in COMP W/READ Examination the results section. documented in this encounter Results HGB (02/24/2009 4:10 PM CDT) athologist Signature Hemoglobin 13.9 11.7 - 15.7 [place] g/dL [facility] Specimen Anatomical Collection Method Collection Time Receive d Time (Source) Location / / Volume Laterality 02/24/2009 4:10 PM 05/27/200 9 4:12 CDT PM CDT Ranjith Hughes MD LABORATORY Performing Organization Address City/State/ZIP Code Phon e Number [facility] [address] [place] [address] [facility] ELECTROCARDIOGRAM, COMP W/READ (02/24/2009 4:04 PM CDT) Narrative This result has an attachment that is no t available. Ranjith Hughes MD EKG TECHNICAL documented in this encounter Visit Diagnoses Diagnosis Other specified pre-operative examinatio n - Primary documented in this encounter Care Teams Composition Siding Worker Relationship Specialty Start Date End Date Ranjith Hughes MD PCP - General 07/11/02 12/17/13 [address] [place] [address] documented as of this encounter
--- OUTSIDE RECORDS SUMMARY | 2022-07-19 23:01 | XMS_ITS | Encounter Summary ---
:1940 Author Organization [facility] Address [address] [place] [id number] Care Team Providers Name Role Phone Ranjith Hughes MD Primary Care Provider Encounter Details Date Type Department Care Team Description 03/01/2009 Historic Notes INTERFACED REPORT Interface, Transcript on, Social History Tobacco Use Types Packs/Day Years Used Date Smoking Tobacco: Never Alcohol Use Standard Drinks/Week Comments No 0 (1 standard drink = 0.6 oz pure alcoho l) Sex Assigned at Date Recorded Not on file documented as of this encounter Progress Notes Interface, Customs Consultant - 12/18/2010 2:17 AM CDT General Information - How to be Addressed Claude - Source of Information patient - model and dye person #1: - Sacha - Contact Location: Home Local - Phone 1: [phone] - Cell - model and dye person #2: daughter - Brenda Kinney - Contact Location: Home Local - Phone 1: [phone] - Patient's spoken language; Urdu or Bilingual communication style Advance Directive - Do you have an No Advanced Health Care Directive? - Can patient name a Yes Surrogate Decision Maker? (Not legally binding) - Surrogate Name: Sacha - Surrogate relationship to patient: - Would you like more No information about Advanced Health Care Directives? Allergies ?? Ampicillin;Hives f0?? penicillin;Hives f0?? Keflex;Hives f0?? tetracycline;Hives f0?? Erythromycin;Hives f0?? Zoloft;Hives f0?? Wellbutrin;Hives f0?? Celexa;Hives f0?? Effexor;Hives f0?? Risperdal;Rash f0?? cephalosporins;Hives pard par Health and Illness - Reason for Admission left foot surgery as Stated by Patient - Previous Reaction to none Anesthesia - Blood none Avoidance/Restrictio_ ns - Previous Blood no Transfusion Role Relationships/Living Environment - Limitations on none Visitors/Phone Calls/TV - Lives With spouse - Living Arrangements house - Home Accessibility bed and bath are not on the first floor; stairs (1 railing present) Substance Use - Tobacco Use None. - Caffeine Use Yes - Caffeine Type Coffee - Caffeine Amount < 3 cups/day - Alcohol Use none - History of street No drug/inhalant/ medication abuse Review of Systems - Neurological none Conditions/Symptoms - Pain: 6 Comfort/Acceptable Pain Level (0-10) - Chronic Pain no - Problem Sleeping none - Head none Conditions/Symptoms - Eye LASIK surgery; visual acuity: decreased Conditions/Symptoms - Ear none Conditions/Symptoms - Nose none Conditions/Symptoms - Mouth/Throat/Neck none Conditions/Symptoms - Dental Care yes - Device/Implant glasses - Cardiac none Conditions/Symptoms - Peripheral/Neurovasc_ edema; left foot swelling ular Conditions/Symptoms - Respiratory none Conditions/Symptoms - Diet Regular - Nutrition Risk Screen No risk indicators present - GI GERD Conditions/Symptoms - none Conditions/Symptoms - Musculoskeletal osteoarthritis; joint pain/swelling Conditions/Symptoms - Ambulation 0 - Independent with ambulation - Transferring 0 - Independent with transfers - Toileting 0- Independent with toileting - Bathing 0- Independent with bathing - Dressing 0- Independent with dressing - Eating 0- Independent with eating - Swallowing no swallowing issues reported - Cognition no cognition issues reported - Communication/speech no speech or language problems - Fall history within No history of falls last six months - Which of the above none functional risks had a recent onset or change? - Skin none reported Conditions/Symptoms - Endocrine none Conditions/Symptoms - Hematological none Conditions/Symptoms - Immune /Infections none - Recent Exposure to none Communicable Disease - Oncology none Conditions/Symptoms - Mental Health depression Conditions/Symptoms Coping Stress/Abuse - Major none Change/Loss/Stressor - QUESTION TO PATIENT: No Has a member of your family or a partner(now or in the past) intimidated, hurt, manipulated, or controlled you in any way? Values/Beliefs/Spiritual Care - C: Community: In hospital derrick man support of your spiritual health, is there someone we may contact for you? (identify all that apply) Mutuality/Individual Preferences - What information would like like spinal anes. would help us give you more personalized care? DIDIER Farris (RN)[Signed 12:31] Authored: General Information, Advance Directive, Allergies, Health and Illness, Role Relationships/Living Environment, Substance Use, Review of Systems, Coping Stress/Abuse, Values/Beliefs/Spiritual Care, Mutuality/Individual Preferences documented in this encounter Plan of Treatment Not on filedocumented as of this encounter Visit Diagnoses Not on filedocumented in this encounter Care Teams Coil Repair Technician Relationship Specialty Start Date End Date Ranjith Hughes MD PCP - General 07/11/02 12/17/13 [address] [place] [address] documented as of this encounter
--- OUTSIDE RECORDS SUMMARY | 2022-07-19 23:01 | XMS_ITS | Encounter Summary ---
:1940 Author Organization [facility] Address [facility] [place] [address] Care Team Providers Name Role Phone Ranjith Hughes MD Primary Care Provider Reason for Visit Reason Comments Foot Problems had surgery last winter/spri ng - really sore, difficult to walk on Sinus Problem pain, congestion, draining, ear pops Encounter Details Date Type Department Care Team Description 06/14/2009 Office Visit [facility] Ranjith Hughes, Acute Maxillary Sinusitis (Primary Dx); Clinic [facility]; [address] [place] [address] [place] [address] [id number] Social History Tobacco Use Types Packs/Day Years Used Date Smoking Tobacco: Never Alcohol Use Standard Drinks/Week Comments No 0 (1 standard drink = 0.6 oz pure alcoho l) Sex Assigned at Date Recorded Not on file documented as of this encounter Last Filed Vital Signs Vital Sign Reading Time Taken Comments Blood Pressure 126/90 06/14/2009 1:38 PM CDT Pulse - - Temperature 36.7 ??C (98 ??F) 06/14/2009 1:38 PM CDT Respiratory Rate - - Oxygen Saturation - - Inhaled Oxygen Concentration - - Weight 88.5 kg (195 lb) 06/14/2009 1:38 PM CDT Height 160 cm (5' 3) 06/14/2009 1:38 PM CDT Body Mass Index 34.54 06/14/2009 1:38 PM CDT documented in this encounter Progress Notes Ranjith Hughes - 06/14/2009 11:30 PM CDT SUBJECTIVE: Lee Ann Herndon, a 69 year old female scheduled an appointment to discuss the following issues: ACUTE MAXILLARY SINUSITIS PARONYCHIA VAGINITIS Medical, social, surgical, and family histories reviewed. ROS: C: NEGATIVE for fever, chills, change in weight I: NEGATIVE for worrisome rashes, moles or lesions ENT/MOUTH: sinus painand congestion R: NEGATIVE for significant cough or SOB CV: NEGATIVE for chest pain, palpitations or peripheral edema GI: NEGATIVE for nausea, abdominal pain, heartburn, or change in bowel habits : NEGATIVE for frequency, dysuria, or hematuria MUSCULOSKELETAL:as above. OBJECTIVE: BP 126/90 Temp 98 ??F (36.7 ??C) Ht 5' 3 (1.6 m) Wt 195 lb (88.451 kg) LMP Postmenopausal EXAM: GENERAL APPEARANCE: healthy, alert and no distress EYES: EOMI, PERRL HENT: inferior turbs enlarged with drainage. RESP: lungs clear to auscultation - no rales, rhonchi or wheezes CV: regular rates and rhythm, normal S1 S2, no S3 or S4 and no murmur, click or rub - ABDOMEN: soft, nontender, no HSM or masses and bowel sounds normal MS: rt great toe with medial swelling and pain. NEURO: Normal strength and tone, sensory exam grossly normal, mentation intact and speech normal ASSESSMENT/PLAN: 461.0 Acute Maxillary Sinusitis (primary encounter diagnosis) Comment: see the above. Plan: BIAXIN 500 MG OR TABS, FLONASE INHA 50 MCG/DOSE NA 681.9D [place] Comment: would like to try meds first. Plan: BIAXIN 500 MG OR TABS 616.10Y Vaginitis Comment: gets yeast infections with antibiotics. Plan: DIFLUCAN 150 MG OR TABS documented in this encounter Nursing Notes 06/14/2009 1:45 PM CDT >> KRISTI RUBIO Mon Jun 14, 2009 1:40 PM Patient presents with: Foot Problems - had surgery last winter/spring - really sore, difficult to walk on Sinus Problem - pain, congestion, draining, ear pops Initial BP 126/90 Temp 98 ??F (36.7 ??C) Ht 5' 3 (1.6 m) Wt 195 lb (88.451 kg) LMP Postmenopausal Body mass index is 34.54 kg/(m^2).. BP completed using cuff size: large HEALTH MAINTENANCE REVIEWED WITH PT: colonoscopy and mammogram due Kristi Rubio CMA documented in this encounter Plan of Treatment Not on filedocumented as of this encounter Visit Diagnoses Diagnosis Acute maxillary sinusitis - Primary Paronychia Cellulitis and abscess of unspecified di git Vaginitis Vaginitis and vulvovaginitis, unspecifie d documented in this encounter Care Teams Qa Software Test Engineer Relationship Specialty Start Date End Date Ranjith Hughes MD PCP - General 07/11/02 12/17/13 [address] [place] [address] documented as of this encounter
--- OUTSIDE RECORDS SUMMARY | 2022-07-19 23:01 | XMS_ITS | Encounter Summary ---
:1940 Author Organization [place] Address [address] [facility] [place] [address] Care Team Providers Name Role Phone Ranjith Hughes MD Primary Care Provider Reason for Referral Referral not Required - Closed Specialty Diagnoses / Procedures Referred By Contact Refer red To Contact Diagnoses Vagina itching Radha Coffman, OBSTETRICS & GYNECOLOGY SH[facility]A [facility] [address] [facility] [address] [address] [facility] TUSHAR SAENZ [address] [address] [id number] Referral ID Status Reason Start Date Expiration Date Visits Requ ested Visits Authorized [id number] Closed 07/16/2009 09/30/2011 1 1 Reason for Visit Reason Comments Vaginal Problem itching, inflammation, x5 da ys - frequent vaginal infections Encounter Details Date Type Department Care Team Description 07/16/2009 Office Visit [facility] Radha Coffman V[facility] [place] SHIMA Field (Primary Dx) [address] [place], [place] [address] [facility] [address] VD JEROMY [address] 553 79 Social History Tobacco Use Types Packs/Day Years Used Date Smoking Tobacco: Never Alcohol Use Standard Drinks/Week Comments No 0 (1 standard drink = 0.6 oz pure alcoho l) Sex Assigned at Date Recorded Not on file documented as of this encounter Last Filed Vital Signs Vital Sign Reading Time Taken Comments Blood Pressure 140/78 07/16/2009 11:37 AM CDT Pulse - - Temperature 36.5 ??C (97.7 ??F) 07/16/2009 11:37 AM CDT Respiratory Rate - - Oxygen Saturation - - Inhaled Oxygen Concentration - - Weight 88.5 kg (195 lb) 07/16/2009 11:37 AM CDT Height - - Body Mass Index 34.54 06/14/2009 1:38 PM CDT documented in this encounter Progress Notes Radha Lam - 07/19/2009 1:26 PM CDT SUBJECTIVE: 69 year old female presents with abnormal vaginal itching for 5 days. No LMP date recorded. Reason: Postmenopausal. General medical, surgical, border measurer and social histories reviewed and updated in Histories section of [facility]. Vaginal symptoms: local irritation and vulvar itching. Vulvar symptoms: vulvar itching. Discharge described as: none. Pt is very sensative to getting yeast infx. Therefore, pt declines abx if possible, to prevent a triggered yeast infx. Pt has not seen a Math Interventionist provider. OBJECTIVE: Patient appears well, vital signs normal. Abdomen normal, soft without tenderness, guarding, mass or organomegaly. No inguinal adenopathy or CVA tenderness. Pelvic Exam:External genitalia and vagina normal with mild erythema. Bimanual and rectovaginal normal. Cultures obtained: bacterial culture. ASSESSMENT: vaginitis. 698.1S Vagina Itching (primary encounter diagnosis) Comment: continue to avoid perfumed soaps, lotions, TP. Pt will trial a steroid cream. Pt given referral to Math Interventionist since this has been an issue for years. Pt will f/u with PCP as needed. Plan: UA MICRO IF POSITIVE, A WET PREP, CONSULT JAVA WEB USER INTERFACE DEVELOPER, TRIAMCINOLONE ACETONIDE 0.5 % EX CREA PLAN: Treatment plan per orders in [facility]. STD prevention discussed. Abstain from intercourse for duration of treatment. Return if symptoms do not resolve as anticipated. documented in this encounter Nursing Notes 07/16/2009 11:45 AM CDT >> AUGUST ONEALSHERICE Fri Jul 16, 2009 11:41 AM Patient presents with: Vaginal Problem - itching, inflammation, x5 days - frequent vaginal infections Initial BP 140/78 Temp (Src) 97.7 ??F (36.5 ??C) (Oral) Wt 195 lb (88.451 kg) LMP Postmenopausal Estimated Body mass index is 34.54 kg/(m^2) as calculated from: Height of 5' 3 (1.6 m) as of 06/14/09 Weight of 195 lb (88.451 kg) as of this encounter. BP completed using cuff size large - RA. Health [facility] was reviewed with patient jennifer Busch, Lab Coordinator documented in this encounter Plan of Treatment Not on filedocumented as of this encounter Procedures Procedure Name Priority Date/Time Associated Diagnosis Comme nts HCL UA MICRO IF Routine 07/16/2009 12:02 PM Vagina Itching Res ults for this POSITIVE CDT procedure are i n the results section. CL AFF MICRO Routine 07/16/2009 12:02 PM Results for this EXAM-URINE CDT procedure are i n the results section. HCL WET PREP Routine 07/16/2009 11:57 AM Vagina Itching Result s for this CDT procedure are i n the results section. documented in this encounter Results (ABNORMAL) MICRO EXAM-URINE (07/16/2009 12:02 PM CDT) [facility] gist Method Time Signature WBC Urine O - 2 0 - 2 [facility] /HPF [facility] RBC Urine 2-5 (A) 0 - 2 [facility] /HPF [facility] Squamous EPI Few FEW /LPF [facility] Bacteria Urine Few (A) NEG /HPF [facility] Mucous Urine Present (A) NEG /LPF [facility] Specimen Anatomical Collection Method Collection Time Receive d Time (Source) Location / / Volume Laterality 07/16/2009 12:02 07/16/2009 PM CDT 12:05 PM CDT Radha Coffman PA-C LABORATORY Performing Organization Address [facility] Phon e Number [facility] [id number] [place] [id number] [facility] (ABNORMAL) UA MICRO IF POSITIVE (07/16/2009 12:02 PM CDT) Patholo gist Method Time Signature Color Urine Yellow [facility] Appearance Urine Clear [facility] Glucose Urine Negative NEG mg/dL [facility] Bilirubin Urine Negative NEG [facility] Ketones Urine Negative NEG mg/dL [facility] Specific [place] 1.015 1.003 - [place] Urine 1.035 [facility] Blood Urine Trace (A) NEG [facility] pH Urine 6.0 5.0 - 7.[address] [place] [address] [facility] Protein Albumin Negative NEG mg/dL [place] Urine [facility] Urobilinogen 1.0 0.2 - 1.0 [place] Urine EU/dL [facility] Nitrite Urine Negative NEG [facility] Leukocyte Trace (A) NEG [place] Esterase Urine [facility] Source Midstream [place] Urine [facility] Specimen Anatomical Collection Method Collection Time Receive d Time (Source) Location / / Volume Laterality 07/16/2009 12:02 07/16/2009 PM CDT 12:05 PM CDT Radha Coffman PA-C LABORATORY Performing Organization Address [facility]/ZIP Code Phon e Number [facility] [phone] [place] [id number] [facility] A WET PREP (07/16/2009 11:57 AM CDT) [facility] gist Method Time Signature Specimen Vagina [place] Description [facility] Wet Prep No Trichomonas seen [place] No clue cells seen [facility] No yeast seen [facility] Report status FINAL [place] 07/16/2009 [facility] Specimen Anatomical Collection Method Collection Time Receive d Time (Source) Location / / Volume Laterality 07/16/2009 11:57 07/16/2009 AM CDT 12:00 PM CDT Radha Coffman PA-C LABORATORY Performing Organization Address City/State/ZIP Code Phon e Number [facility] [address] [place] [address] [facility] documented in this encounter Visit Diagnoses Diagnosis Vagina itching - Primary Pruritus of genital organs documented in this encounter Care Teams Academy Education Director Relationship Specialty Start Date End Date Ranjith Hughes MD PCP - General 07/11/02 12/17/13 [address] [place] [address] documented as of this encounter
--- OUTSIDE RECORDS SUMMARY | 2022-07-19 23:01 | XMS_ITS | Encounter Summary ---
:1940 Author Organization [place] Address [address] [place] [address]. [place] [address] Care Team Providers Name Role Phone Ranjith Hughes MD Primary Care Provider Encounter Details Date Type Department Care Team Description 07/17/2009 Emergency room [facility] Marixa Justin, Hospital Results [address] [id number] (Wo rk) Social History Tobacco Use Types Packs/Day Years Used Date Smoking Tobacco: Never Alcohol Use Standard Drinks/Week Comments No 0 (1 standard drink = 0.6 oz pure alcoho l) Sex Assigned at Date Recorded Not on file documented as of this encounter Progress Notes Marixa Justin MD - 07/26/2009 1:52 PM CDT FINAL CHIEF COMPLAINT: Perineal itching. HISTORY OF PRESENT ILLNESS: Brady Escobar is a pleasant 69-year-old female who on Sunday startedto have itching and discomfort in her perineal region. She wondered if she could have a yeast infection. She states that she has been trying Lotrimin and other medications [id number] and it has not helped. She saw her primary care clinic today and had a wet prep that was negative. She had a urinalysis that was normal. She describes itching and stinging. She has tried to put some of the triamcinolone cream which was just started today (steroid cream) on that area. She states that that made it worse. The pain is excruciating and she has never had this before. She reports that she has no STD history and she has not recently had any new partners. No vaginal discharge or bleeding, otherwise no vomiting or abdominal pain. PAST MEDICAL HISTORY: Obesity, gastroesophageal reflux, depression. PAST SURGICAL HISTORY: Includes orthopedic foot surgery, bilateral knee replacement. MEDICATIONS: Antidepressants, omeprazole, Vigamox that she put on the rash in addition to steroid cream. ALLERGIES: The patient's allergies include penicillin, erythromycin, Keflex, Kefzol and tetracycline. SOCIAL HISTORY: Does not smoke or drink. REVIEW OF SYSTEMS: She describes the pain as 10/10 in the perineal region. No abdominal pain, no nausea, vomiting, no melena or hematochezia, no dysuria, no vaginal discharge or bleeding. All other review of systems negative. PHYSICAL EXAM: VITAL SIGNS: Blood pressure is 146/93, pulse 94, respirations 16, temperature 98.7, O2 sats 95%. GENERAL: The patient is conversive, alert and oriented. CHEST: Clear to auscultation. CARDIOVASCULAR: Regular rate and rhythm. ABDOMEN: She is obese. No guarding or rebound, positive bowel sounds. No organomegaly. No masses. BACK: Shows no costovertebral angle tenderness, no midline spinal tenderness. EXTREMITIES: Intact pulses x4, no clubbing, cyanosis or edema. MUSCULOSKELETAL: Full range of motion. SKIN: Warm and dry with no acute rashes or ulcerations. She does have venous stasis. NEUROLOGICAL: Normal. HEME: Shows no bruising or petechia. LYMPHATIC: No neck or groin lymphadenopathy. GENITOURINARY: The patient does have thinning and excoriation where the labia majora meets the minora over the clitoris in addition to atrophy of the mucosal lining inside the introitus. There are no ulcerations, no yeast or vulvar redness. She does have some slight satellite lesions in addition to in tertriginous redness on her bilateral femoral vessel area. LABORATORY AND DIAGNOSTICS: I did review the patient's chart and she just had a wet mount today andthat was completely negative, in addition to her urinalysis that looks normal. EMERGENCY DEPARTMENT COURSE: I do think her symptoms could be consistent with lymphangitis, tinea cruris, candidiasis, herpes, atrophic vaginitis and allergic contact, but the patient has not had any new clothes or irritants in that area. Likely this is atrophic vaginitis with superimposed candidiasis. We will be stopping the steroid cream and placing lidocaine cream, Estrace cream x2 weeks and 1 dose of Diflucan. I did recommend that she follow up with her primary care physician again or possibly dermatology. The patient was given lidocaine cream here in the emergency department and that providedrelief to that area in addition to lubricant. DISPOSITION: Home. DISCHARGE DIAGNOSIS: Atrophic vaginitis, rule out candidiasis. DISCHARGE MEDICATIONS: Prescriptions as previously outlined. Electronically signed on 07/26/2009 13:51 by MARIXA JUSTIN MD MT: [id number]#[id number] Name: BRADY ESCOBAR MRN: [id number] Account: [id number] : 1940 Visit Date: 07/17/2009 Document: [id number] documented in this encounter Plan of Treatment Not on filedocumented as of this encounter Visit Diagnoses Not on filedocumented in this encounter Care Teams Principal Clerk Typist Relationship Specialty Start Date End Date Ranjith Hughes MD PCP - General 07/11/02 12/17/13 [address] [place] [address] documented as of this encounter
--- OUTSIDE RECORDS SUMMARY | 2022-07-19 23:01 | XMS_ITS | Encounter Summary ---
:1940 Author Organization [place] Address [address] [place] [address] Care Team Providers Name Role Phone Ranjith Hughes MD Primary Care Provider Encounter Details Date Type Department Care Team Description 02/26/2007 Historic Results [place] Theodore Morrissey MD Hospitalists [facility] [address] ORTHOPEDICS [place], [place] [address] [facility] [phone] [address] [place], [place] [address] (Wo rk) Social History [...] Name Priority Date/Time Associated Diagnosis Comme nts INR Routine 02/26/2007 3:30 PM Results f or this CDT procedure are i n the results section . documented in this encounter Results (ABNORMAL) INR (02/26/2007 3:30 PM CDT) P athologist Signature INR 2.62 (H) 0.86 - 1.14 [facility] Specimen Anatomical Collection Method Collection Time Receive d Time (Source) Location / / Volume Laterality 02/26/2007 3:30 PM 7 3:29 CDT PM CDT Theodore Palmer MD LAB - BLOOD ORDERABLES Performing Organization Address City/State/ZIP Code Phon e Number [facility] documented in this encounter Visit Diagnoses Not on filedocumented in this encounter Care Teams Clicking Machine Operator Relationship Specialty Start Date End Date Ranjith Hughes MD PCP - General 07/11/02 12/17/13 [address] [place] [address] documented as of this encounter
--- OUTSIDE RECORDS SUMMARY | 2022-07-19 23:01 | XMS_ITS | Encounter Summary ---
:1940 Author Organization [place] Address [address] [place] [address]. [place] [address] Care Team Providers Name Role Phone Ranjith Hughes MD Primary Care Provider Reason for Visit Reason Onset Date Comments Refill Request 05/31/2009 Lexapro Encounter Details Date Type Department Care Team Description 05/31/2009 Refill [facility] Ranjith Hughes MD Refill Request (Lexapro) [address] [phone] Social History Tobacco Use Types Packs/Day Years Used Date Smoking Tobacco: Never Alcohol Use Standard Drinks/Week Comments No 0 (1 standard drink = 0.6 oz pure alcoho l) Sex Assigned at Date Recorded Not on file documented as of this encounter Miscellaneous Notes Telephone Encounter - Siri Gonzales - 05/31/2009 10:56 AM CDT Last OV: 02/24/09 Reason: Pre-op Provider: Dr. Hughes Last PHQ-9 score on record= No Value exists for the TUCKER: [id number] Unable to fill. Siri Gonzales RN Telephone Encounter - Siri Gonzales - 05/31/2009 10:54 AM CDT Staff Message copied by SIRI GONZALES on SunMay 31, 2009 10:54 AM ------ Message from: CORINNE VALDIVIA Created: SunMay 31, 2009 9:12 AM Regarding: RF First and Last name of caller: pt Relationship to patient: pt Reason for call: rf Is it in regards to a medication: yes Med Name: antidepressant/lexapro Pharmacy name and location: [facility] Provider they see: Phone number they can be reached at: [phone] Ok to leave a message: yes [place] Pt had two major surgeries this summer and it is difficult to come in. Healing is slow/Plz refill. documented in this encounter Plan of Treatment Not on filedocumented as of this encounter Visit Diagnoses Diagnosis DEPRESSIVE DISORDER NEC - Primary Depressive disorder, not elsewhere class ified documented in this encounter Care Teams Phlebotomy Services Technician Relationship Specialty Start Date End Date Ranjith Hughes MD PCP - General 07/11/02 12/17/13 [address] [place] [address] documented as of this encounter
--- OUTSIDE RECORDS SUMMARY | 2022-07-19 23:01 | XMS_ITS | Encounter Summary ---
:1940 Author Organization [place] Address [address] [place] [address] Care Team Providers Name Role Phone Ranjith Hughes MD Primary Care Provider Encounter Details Date Type Department Care Team Description 03/09/2009 Historic Notes INTERFACED REPORT Interface, Transcript onMD Social History Tobacco Use Types Packs/Day Years Used Date Smoking Tobacco: Never Alcohol Use Standard Drinks/Week Comments No 0 (1 standard drink = 0.6 oz pure alcoho l) Sex Assigned at Date Recorded Not on file documented as of this encounter Progress Notes Interface, Long Term Care Pharmacist - 12/18/2010 1:42 AM CDT SH--Visited per referral from pt. Pt discussed her treatment and said her pain is well-controlled and she was feeling okay. Her daughter was visiting. Pt requested prayer for her family, which I provided, along with prayer for her healing. She was very appreciative, as she prays for her family several times throughout each day. Pt is [employer], so I informed her of the [place]. I will follow up for additional prayer as available. [Signature] Author: MINO ESTEVEZ (Concrete Pipe Making Machine Operator [place] [employer] [place]) [Signed 10:43] Interface, Long Term Care Pharmacist - 12/18/2010 1:40 AM CDT General Information - Patient Profile See Profile for full history and prior level of Review: function - Onset Date: - Referring Physician: Dr Gregory Mosqueda - Patient/Family Goals: go home domenic, increase ability to ambulate once healed, amb safely with PUW - History of Present chronic foot, ankle pain, rt fallen arch Problem: - Treatment Diagnosis: gait impairment - Precautions/Limitati_ No known precautions/limitations ons: - Weight Bearing Non weight bearing Status: Cognitive Status - Orientation: orientation to person, place and time - Level of alert Consciousness: - Follows Commands and 100% of the time Answers Questions: - Personal Safety and intact Judgment: - Memory: intact Pain - Pain: Yes (see Vital Signs flowsheet) Strength - Strength: Strength was appropriate in all areas - Comments: Had to teach the patient how to use her shoulder, stabilizers versus arms with walker, crutch and rail. Bed Mobility: Rolling/Turning - Level of stand-by assist [place]: - Physical verbal cues; supervision Assist/Nonphysical Assist: Bed Mobility: Scooting/Bridging - Level of stand-by assist [place]: - Physical supervision; verbal cues Assist/Nonphysical Assist: Bed Mobility: Sit to Supine - Level of stand-by assist [place]: - Physical supervision; verbal cues Assist/Nonphysical Assist: Bed Mobility: Supine to Sit - Level of stand-by assist [place]: - Physical supervision; verbal cues Assist/Nonphysical Assist: Transfer: Bed to Chair/Chair to Bed - Level of stand-by assist [place]: - Physical supervision; verbal cues Assist/Nonphysical Assist: Transfer: Sit to Stand - Level of stand-by assist, CGA [place]: - Physical verbal cues; nonverbal cues (demo/gestures) Assist/Nonphysical Assist: Transfer: Stand to Sit - Level of minimum assist (75% patients effort), CGA [place]: - Physical supervision; verbal cues Assist/Nonphysical Assist: Gait Skills - Level of stand-by assist, CGA [place]: - Physical supervision; verbal cues; nonverbal cues Assist/Nonphysical (demo/gestures) Assist: - Weight-Bearing nonweight-bearing Restrictions: - Assistive Device: standard walker - Gait Distance: bed to chair, 10 ft, turns Treatment Plan - Treatments: Gait Training Clinical Impression - Skilled Criteria for Yes Therapy Intervention Met: - PT Practice Pattern: Musculoskeletal - Assessment: The pt will benefit from skilled Physical Therapy for gait and transfer training. - Rehabilitation Good, to achieve stated therapy goals Potential: - Predicted Duration of one day Therapy: - Predicted Frequency 2 visits of Therapy: - Discharge Home; has help from family Destination: - Risks and Benefits of Yes Treatment have been explained.: - Patient, family Yes and/or staff in agreement with Plan of Care: Michael Ayers (PT)[Signed 16:15] Authored: General Information, Cognitive Status, Pain, Strength, Bed Mobility: Rolling/Turning, Bed Mobility: Scooting/Bridging, Bed Mobility: Sit to Supine, Bed Mobility: Supine to Sit, Transfer: Bed to Chair/Chair to Bed, Transfer: Sit to Stand, Transfer: Stand to Sit, Gait Skills, Treatment Plan, Clinical Impression Interface, Long Term Care Pharmacist - 12/18/2010 1:39 AM CDT Discharge Summary - Reason for Discharge All goals and outcomes met, no further needs identified - Progress toward Goals met achieving short term goals/exterminator termite goals - Comments The patient will disch to home with her family today. - Continued Therapy No Recommended Michael Ayers (PT)[Signed 16:19] Authored: Discharge Summary documented in this encounter Plan of Treatment Not on filedocumented as of this encounter Visit Diagnoses Not on filedocumented in this encounter Care Teams Hadoop Admin Relationship Specialty Start Date End Date Ranjith Hughes MD PCP - General 07/11/02 12/17/13 [address] [place] [address] documented as of this encounter
--- OUTSIDE RECORDS SUMMARY | 2022-07-19 23:01 | XMS_ITS | Encounter Summary ---
:1940 Author Organization [place] Address [address] [place] [address] Care Team Providers Name Role Phone Ranjith uHghes MD Primary Care Provider Encounter Details Date Type Department Care Team Description 08/09/2010 Historic Results INTERFACED REPORT Leo De Santiago MD [facility] [address] [place], [place] [address] (Wo rk) Social History Tobacco Use Types Packs/Day Years Used Date Smoking Tobacco: Never Alcohol Use Standard Drinks/Week Comments No 0 (1 standard drink = 0.6 oz pure alcoho l) Sex Assigned at Date Recorded Not on file documented as of this encounter Plan of Treatment Not on filedocumented as of this encounter Procedures Procedure Name Priority Date/Time Associated Comments Diagnosis BLOOD CULTURE STAT 08/09/2010 12:40 Results fo r this AM OIL WELL DIRECTIONAL SURVEYOR procedure are i n the results section. CBC WITH PLATELETS & STAT 08/09/2010 12:20 Res ults for this DIFFERENTIAL AM OIL WELL DIRECTIONAL SURVEYOR procedure are i n the results section. BASIC METABOLIC PANEL STAT 08/09/2010 12:20 Re sults for this AM OIL WELL DIRECTIONAL SURVEYOR procedure are i n the results section. BLOOD CULTURE STAT 08/09/2010 12:19 Results fo r this AM OIL WELL DIRECTIONAL SURVEYOR procedure are i n the results section. documented in this encounter Results Blood culture (08/09/2010 12:40 AM OIL WELL DIRECTIONAL SURVEYOR) [facility] Method Time Signature Specimen Left Arm MISYS Description Culture Micro No growth MISYS after 6 days Micro Report FINAL MISYS Status [id number] Specimen Anatomical Collection Method Collection Time Receive d Time (Source) Location / / Volume Laterality 08/09/2010 12:40 08/09/2010 AM OIL WELL DIRECTIONAL SURVEYOR 12:11 AM OIL WELL DIRECTIONAL SURVEYOR Leo De Santiago MD LAB - MICRO GENERAL ORDERABL ES Performing Organization Address City/State/ZIP Code Phon e Number MISYS (ABNORMAL) CBC with platelets differential (08/09/2010 12:20 AM OIL WELL DIRECTIONAL SURVEYOR) [facility] gist Method Time Signature MCV 95 78 - 100 MISYS fl MCH 30.7 26.5 - MISYS 33.0 pg MCHC 32.2 31.5 - MISYS 36.5 g/dL RDW 13.3 10.0 - MISYS 15.0 % WBC 6.9 4.0 - MISYS 11.0 10e9/L RBC Count 4.46 3.8 - 5.2 MISYS 10e12/L Hemoglobin 13.7 11.7 - MISYS 15.7 g/dL Hematocrit 42.5 35.0 - MISYS 47.0 % % Neutrophils 69 40 - 75 % MISYS % Lymphocytes 20 20 - 48 % MISYS % Monocytes 7 0 - 12 % MISYS % Eosinophils 4 0 - 6 % MISYS % Basophils 0 0 - 2 % MISYS Platelet Count 113 (L) 150 - 450 MISYS 10e9/L Absolute 4.8 1.6 - 8.3 MISYS Neutrophil 10e9/L Absolute 1.4 0.8 - 5.3 MISYS Lymphocytes 10e9/L Absolute 0.5 0.0 - 1.3 MISYS Monocytes 10e9/L Absolute 0.3 0.0 - 0.7 MISYS Eosinophils 10e9/L Absolute 0.0 0.0 - 0.2 MISYS Basophils 10e9/L Diff Method Automated MISYS Method Specimen Anatomical Collection Method Collection Time Receive d Time (Source) Location / / Volume Laterality 08/09/2010 12:20 08/09/2010 AM OIL WELL DIRECTIONAL SURVEYOR 12:11 AM OIL WELL DIRECTIONAL SURVEYOR Leo De Santiago MD LAB - BLOOD ORDERABLES Performing Organization Address City/State/ZIP Code Phon e Number MISYS (ABNORMAL) Basic metabolic panel (08/09/2010 12:20 AM OIL WELL DIRECTIONAL SURVEYOR) athologist Signature Sodium 140 133 - 144 MISYS mmol/L Potassium 4.2 3.4 - 5.3 MISYS mmol/L Chloride 105 94 - 109 MISYS mmol/L Carbon Dioxide 25 20 - 32 MISYS mmol/L Glucose 97 60 - 99 MISYS mg/dL Urea Nitrogen 15 7 - 30 MISYS mg/dL Creatinine 0.92 0.52 - 1.04 MISYS mg/dL Comment: New IDMS-traceable calibration beginning 01/30/08 GFR Estimate 61 >60 mL/min/1.7m2 MISYS GFR Estimate If Black 73 >60 mL/min/1.7m2 M ISYS Calcium 11.0 (H) 8.5 - 10.4 mg/dL MISYS Anion Gap 9 6 - 17 mmol/L MISYS Specimen Anatomical Collection Method Collection Time Receive d Time (Source) Location / / Volume Laterality 08/09/2010 12:20 08/09/2010 AM OIL WELL DIRECTIONAL SURVEYOR 12:11 AM OIL WELL DIRECTIONAL SURVEYOR Leo De Santiago MD LAB - BLOOD ORDERABLES Performing Organization Address City/State/ZIP Code Phon e Number MISYS Blood culture (08/09/2010 12:19 AM OIL WELL DIRECTIONAL SURVEYOR) [facility] gist Method Time Signature Specimen Right Hand MISYS Description Culture Micro No growth MISYS after 6 days Micro Report FINAL MISYS Status [id number] Specimen Anatomical Collection Method Collection Time Receive d Time (Source) Location / / Volume Laterality 08/09/2010 12:19 08/09/2010 AM OIL WELL DIRECTIONAL SURVEYOR 12:11 AM OIL WELL DIRECTIONAL SURVEYOR Leo De Santiago MD LAB - MICRO GENERAL ORDERABL ES Performing Organization Address City/[facility] Phon e Number MISYS documented in this encounter Visit Diagnoses Not on filedocumented in this encounter Care Teams Application Manager Relationship Specialty Start Date End Date Ranjith Hughes MD PCP - General 07/11/02 12/17/13 [address] [place] [address] documented as of this encounter
--- OUTSIDE RECORDS SUMMARY | 2022-07-19 23:01 | XMS_ITS | Encounter Summary ---
:1940 Author Organization [place] Address [facility] [place] [address] Care Team Providers Name Role Phone Ranjith Hughes MD Primary Care Provider Reason for Visit Reason Onset Date Comments Refill Request 03/11/2007 Pt asking if coul d okay her lexapro Encounter Details Date Type Department Care Team Description 03/11/2007 Refill [facility] Ranjith Hughes MD Refill Request (Pt [place] [id number] [place] [address] S asking if could okay [id number] [place] [address] her lexapro) [place], [place] [phone] Social History Tobacco Use Types Packs/Day Years Used Date Smoking Tobacco: Never Alcohol Use Standard Drinks/Week Comments No 0 (1 standard drink = 0.6 oz pure alcoho l) Sex Assigned at Date Recorded Not on file documented as of this encounter Miscellaneous Notes Telephone Encounter - Sofia Pitts - 03/19/2007 9:03 AM CDT Called to inform pt. She had already picked up rx. Hellen Morse R.N. Telephone Encounter - Aaliyah Reynolds - 03/12/2007 11:27 AM CDT Pt calling back to ck status, please review Aaliyah Reynolds RN Telephone Encounter - Sofia Pitts - 03/11/2007 2:30 PM CDT Pt is calling to ask if could okay refills on her lexapro? She states she typically gets this through her psychiatrist, but doesn't feel the need to keep going through him. Please authorize refills. Last OV:02/12/07 Reason: PReop exam RTC: none. Please call pt back only if any problems. Thanks, Hellen Pitts R.N. documented in this encounter Plan of Treatment Not on filedocumented as of this encounter Visit Diagnoses Diagnosis Other specified pre-operative examinatio n documented in this encounter Care Teams Customer Operations Intern Relationship Specialty Start Date End Date Ranjith Hughes MD PCP - General 07/11/02 12/17/13 [address] [place] [address] documented as of this encounter
--- OUTSIDE RECORDS SUMMARY | 2022-07-19 23:01 | XMS_ITS | Encounter Summary ---
:1940 Author Organization [facility] Address [address] [place] [address] Care Team Providers Name Role Phone Ranjith Hughes MD Primary Care Provider Encounter Details Date Type Department Care Team Description 02/25/2007 Emergency room [facility] [address] [place] [address] Social History Tobacco Use Types Packs/Day Years Used Date Smoking Tobacco: Never Alcohol Use Standard Drinks/Week Comments No 0 (1 standard drink = 0.6 oz pure alcoho l) Sex Assigned at Date Recorded Not on file documented as of this encounter Progress Notes Interface, Ultra Sound Technician - 02/27/2007 12:29 AM CDT FINAL CHIEF COMPLAINT: I have a sore area on my foot. HISTORY OF PRESENT ILLNESS: A 66-year-old female presents with left plantar foot pain which developed yesterday morning when she was walking. She states it feels like there is a pain on the underside of her foot. It is not painful unless she is stepping on it. She had a knee replacement surgery on her left knee on Sunday, 02/18. She has not had coughing, chest pain or shortness of breath. She is on Coumadin and states that she was concerned about a possible blood clot. She rates her pain as 0/10. REVIEW OF SYSTEMS: As noted in her HPI. PAST MEDICAL HISTORY: Significant for left total knee arthroplasty and depression. MEDICATIONS: Celebrex, Lexapro, Coumadin, Darvocet and Prilosec. ALLERGIES: Penicillin, Keflex, ampicillin, tetracycline, erythromycin, Zoloft, Wellbutrin and Celexa as well as Effexor. SOCIAL HISTORY: Nonsmoker. PHYSICAL EXAMINATION: VITAL SIGNS: Blood pressure 154/82, pulse 83, respirations 24, temperature 97 and O2 sat 95%. GENERAL: She is awake, alert, nontoxic female sitting upright. HEENT: Sclerae nonicteric. She has fair eye contact. Mucous membranes are moist. LUNGS: Has no accessory muscle use or increase work of breathing. Lungs are clear. HEART: Regular rate and rhythm. EXTREMITIES: Evaluation of left knee reveals a dressing without evidence of bleeding. Her foot reveals no swelling, ecchymosis or edema. She has some mild tenderness on the plantar part of her foot. There is no bony tenderness on her calcaneus, malleoli or base of her fifth metatarsal: EMERGENCY DEPARTMENT COURSE: She denies any calf or thigh pain. I think this is possibly plantar fasciitis or related to tendonitis. She feels relieved that I do not think this is related to a blood clot. She does not have pain in an area that is consistent with that diagnosis. She will follow up with Dr. Palmer. Weightbear as tolerated. She can put ice her foot. She is to return with chest pain, shortness of breath and calf or thigh pain and/or swallowing. DIAGNOSES: 1. Evaluation for left foot with pain. 2. Evaluation for deep venous thrombosis. Electronically signed on 02/27/2007 00:29 by SHY ANDERSON MD MT: [id number] Name: BRADY ESCOBAR MRN: [id number] Account: [id number] : 1940 Visit Date: 02/25/2007 Document: [id number] cc: Ranjith Palmer MD documented in this encounter Plan of Treatment Not on filedocumented as of this encounter Visit Diagnoses Not on filedocumented in this encounter Care Teams Database Support Relationship Specialty Start Date End Date Ranjith Hughes MD PCP - General 07/11/02 12/17/13 [address] [place] [address] documented as of this encounter
--- OUTSIDE RECORDS SUMMARY | 2022-07-19 23:01 | XMS_ITS | Encounter Summary ---
:1940 Author Organization [facility] Address [facility] [place] [address] Care Team Providers Name Role Phone Ranjith Hughes MD Primary Care Provider Reason for Visit Reason Onset Date Comments Medication Request 03/20/2009 Encounter Details Date Type Department Care Team Description 03/20/2009 Telephone [facility] Ranjith Hughes MD Medication Request [address] [phone] Social History Tobacco Use Types Packs/Day Years Used Date Smoking Tobacco: Never Alcohol Use Standard Drinks/Week Comments No 0 (1 standard drink = 0.6 oz pure alcoho l) Sex Assigned at Date Recorded Not on file documented as of this encounter Miscellaneous Notes Telephone Encounter - Ewelina Farias - 03/20/2009 10:24 AM CDT Gave Rx for yeast infection. If pt is not improving, she needs to come in. Marifer Farias M.D Telephone Encounter - Eduardo Borja - 03/20/2009 10:22 AM CDT Pt informed Dr. Farias [facility] Pt wishes to thank you, Dr. Farias! Eduardo Borja LPN Telephone Encounter - Eduardo Borja - 03/20/2009 10:20 AM CDT Per medical front desk specialist staff, pt requesting medication for yeast infection. Pt stated she was on vancomycin during hospitalization for surgery 03/08/09. Pt requesting oral medication for vaginal yeast infection. Pt informed of options: visit required, OTC Monistat, or call [facility] on-call physician. Eduardo Borja LPN documented in this encounter Plan of Treatment Not on filedocumented as of this encounter Visit Diagnoses Diagnosis Yeast infection of the vagina - Primary Candidiasis of vulva and vagina documented in this encounter Care Teams Mobile Plant Operators Relationship Specialty Start Date End Date Ranjith Hughes MD PCP - General 07/11/02 12/17/13 [address] [place] [address] documented as of this encounter
--- OUTSIDE RECORDS SUMMARY | 2022-07-19 23:01 | XMS_ITS | Encounter Summary ---
:1940 Author Organization [facility] Address [address] [place] [address]. [place] [address] Care Team Providers Name Role Phone Ranjith Hughes MD Primary Care Provider Reason for Visit Reason Onset Date Comments [employer] MEMBER - INPATIENT 03/09/2009 [facility], Left Foot Surgery Encounter Details Date Type Department Care Team Description 03/09/2009 Telephone [facility] Blank Morales [employer] - [facility]OC[facility] - CARE [facility] INPATIENT ([facility] Left Foot Surgery) [address] [place] [address] [place] [phone] Social History Tobacco Use Types Packs/Day Years Used Date Smoking Tobacco: Never Alcohol Use Standard Drinks/Week Comments No 0 (1 standard drink = 0.6 oz pure alcoho l) Sex Assigned at Date Recorded Not on file documented as of this encounter Miscellaneous Notes Telephone Encounter - Anna Arthur - 03/11/2009 2:02 PM CDT This [facility] member was discharged 03/09/09. DX: Lt Foot Surgery. PASS, ERV, EPIC and FCIS reviewed. Discharged to home without services. Reports understanding of discharge medications and instructions. Has made follow up appt with MD. Anna Arthur LPN [facility]PA Telephone Encounter - Jacqueline Morales - 03/10/2009 12:56 PM CDT PASS, ERV, EPIC and FCIS reviewed. PASS indicates member discharged to home on 03/09/09. Jacqueline Morales RN CM FPA Telephone Encounter - Alix Bush - 03/09/2009 10:58 AM CDT This [facility] member was admitted to [facility] on 03/08/09 , DX: Left Foot Surgery. PASS, ERV, EPIC and FCIS reviewed. SW Contact is mAena Palmer [phone]. Monika Bush LPN FPA [phone] documented in this encounter Plan of Treatment Not on filedocumented as of this encounter Visit Diagnoses Not on filedocumented in this encounter Care Teams Char Dust Cleaner And Salvager Relationship Specialty Start Date End Date Ranjith Hughes MD PCP - General 07/11/02 12/17/13 [address] [place] [address] documented as of this encounter
--- OUTSIDE RECORDS SUMMARY | 2022-07-19 23:01 | XMS_ITS | Encounter Summary ---
:1940 Author Organization [place] Address [address] [place] [address] Care Team Providers Name Role Phone Ranjith Hughes MD Primary Care Provider Encounter Details Date Type Department Care Team Description 02/22/2007 [facility] [address] ORTHOPEDICS [place], [place] [address] [facility] [phone] [address] [place], [place] [address] (Wo rk) Social History [...] Date/Time Associated Diagnosis Comme nts INR Routine 02/22/2007 10:53 AM Results for this CDT procedure are i n the results section . documented in this encounter Results (ABNORMAL) INR (02/22/2007 10:53 AM CDT) P athologist Signature INR 1.54 (H) 0.86 - 1.14 MISYS Specimen Anatomical Collection Method Collection Time Receive d Time (Source) Location / / Volume Laterality 02/22/2007 10:53 02/22/2007 AM CDT 10:44 AM CDT Theodore Palmer MD LAB - BLOOD ORDERABLES Performing Organization Address City/State/ZIP Code Phon e Number MISYS documented in this encounter Visit Diagnoses Not on filedocumented in this encounter Care Teams Green Building Materials Distributor Relationship Specialty Start Date End Date Ranjith Hughes MD PCP - General 07/11/02 12/17/13 [address] [place] [address] documented as of this encounter
--- OUTSIDE RECORDS SUMMARY | 2022-07-19 23:01 | XMS_ITS | Encounter Summary ---
:1940 Author Organization [place] Address [address] [place] [address] Care Team Providers Name Role Phone Ranjith Hughes MD Primary Care Provider Encounter Details Date Type Department Care Team Description 08/09/2010 [facility] Results EMERG[facility]Y [facility] [address] [place], [place] [address] (Wo rk) Social History [...] Priority Date/Time Associated Diagnosis Comme nts XR CHEST 2 VIEWS Routine 08/09/2010 1:17 AM Resul ts for this [facility] procedure are i n the results section. documented in this encounter Results X-ray Chest 2 vws* (08/09/2010 1:17 AM [facility]) Anatomical Region Laterality Modality Chest Other Specimen (Source) Anatomical Collection Method Collection Time Re ceived Time Location / / Volume Laterality 08/09/2010 1:17 AM [facility] Impressions 08/09/2010 7:12 AM [facility] CHEST TWO VIEW* Aug 09, 2010 1:17:00 AM HISTORY: Pneumonia. FINDINGS: Emphysematous and fibrotic matthieu nges in both lungs. Chest otherwise negative. Leo De Santiago MD IMG DIAGNOSTIC IMAGING ORDER BERNARDO documented in this encounter Visit Diagnoses Not on filedocumented in this encounter Care Teams Director Of Global Talent Relationship Specialty Start Date End Date Ranjith Hughes MD PCP - General 07/11/02 12/17/13 [address] [place] [address] documented as of this encounter
--- OUTSIDE RECORDS SUMMARY | 2022-07-19 23:01 | XMS_ITS | Encounter Summary ---
:1940 Author Organization [facility] Address [address] [place] [address] Care Team Providers Name Role Phone Ranjith Hughes MD Primary Care Provider Reason for Visit Reason Comments Sinus Problem started with sore throat and now into the sinuses, fever, headaches, and aches, sx x 1 week Encounter Details Date Type Department Care Team Description 07/27/[address] [facility] TYLER Martinez [facility][note 3] SHIMA Landaverde SINUSITIS (Primary Dx) [address] [place] [address] [place] [id number] [place], [place] [phone] [address] Social History Tobacco Use Types Packs/Day Years Used Date Smoking Tobacco: Never Alcohol Use Standard Drinks/Week Comments No 0 (1 standard drink = 0.6 oz pure alcoho l) Sex Assigned at Date Recorded Not on file documented as of this encounter Last Filed Vital Signs Vital Sign Reading Time Taken Comments Blood Pressure 140/86 07/27/2007 10:00 AM CDT Pulse - - Temperature 36.7 ??C (98 ??F) 07/27/2007 10:00 AM CDT Respiratory Rate - - Oxygen Saturation - - Inhaled Oxygen Concentration - - Weight - - Height - - Body Mass Index - - documented in this encounter Progress Notes Saima Martinez - 07/27/2007 10:46 AM CDT SUBJECTIVE: Lee Ann Herndon is a 67 year old female patient complaining of sinus congestion, ear pain, headache and cough for 1 week(s). Sinus pain and eyes aching. Fever and chills off and on. Getting worse. All of family sick. Cough due to post nasal drip. OTC meds help some. OBJECTIVE: The patient appears healthy,hoarse, alert and no distress. EARS: External ears normal. Canals clear. TM's normal. NOSE/SINUS: positive findings: mucosa erythematous and swollen Sinus palpation: Frontal sinus and Maxillary sinus tender to palpation R>L THROAT: moderate erythema and no exudates present NECK: Neck supple. No adenopathy. CHEST: Clear to auscultation, heart RRR ASSESSMENT: Acute Sinusitis PLAN: See orders. In addition, I have suggested that the patient use OTC symptomatic cares prn. Call or RTC if needed. documented in this encounter Nursing Notes 07/27/2007 10:00 AM CDT >> WILLOW HUI 07/27/2007 10:13 am Lee Ann Herndon presents for: Sinus Problem - started with sore throat and now into the sinuses, fever, headaches, and aches, sx x 1 week.PATIENT REFUSED WEIGHT CHECK. Initial BP 140/86 Temp (Src) 98 (Oral) LMP Postmenopausal Estimated Body mass index is 41.11 kg/(m^2) as calculated from: Height of 5' 3 (1.600 m) as of 02/12/07 Weight of 232 lbs (105.235 kg) as of 02/12/07. BP completed using cuff size: large Willow Hui CMA documented in this encounter Plan of Treatment Not on filedocumented as of this encounter Visit Diagnoses Diagnosis Acute maxillary sinusitis - Primary documented in this encounter Care Teams Agriscience Teacher Relationship Specialty Start Date End Date Ranjith Hughes MD PCP - General 07/11/02 12/17/13 [address] [place] [address] documented as of this encounter
--- OUTSIDE RECORDS SUMMARY | 2022-07-19 23:01 | XMS_ITS | Encounter Summary ---
:1940 Author Organization [place] Address [facility] [place] [address] Care Team Providers Name Role Phone Ranjith Hughes MD Primary Care Provider Reason for Visit Reason Comments Depression follow up medications Sinus Problem sinus drainage Encounter Details Date Type Department Care Team Description 01/13/2010 Office Visit [facility] Ranjith Hughes DEPRES SIVSkylar DISORDER NEC (Primary Dx); [facility] [place] MD JOINT PAIN-LOWER LEG; [address] [facility] [id number] [place] [address] URI (Upper Respiratory Infection) [place] [address] [phone] Social History Tobacco Use Types Packs/Day Years Used Date Smoking Tobacco: Never Alcohol Use Standard Drinks/Week Comments No 0 (1 standard drink = 0.6 oz pure alcoho l) Sex Assigned at Date Recorded Not on file documented as of this encounter Last Filed Vital Signs Vital Sign Reading Time Taken Comments Blood Pressure 128/78 01/13/2010 5:48 PM CDT Pulse 72 01/13/2010 5:48 PM CDT Temperature 37.1 ??C (98.8 ??F) 01/13/2010 5:48 PM CDT Respiratory Rate - - Oxygen Saturation 92% 01/13/2010 5:48 PM CDT Inhaled Oxygen Concentration - - Weight - - Height 160 cm (5' 3) 01/13/2010 5:48 PM CDT Body Mass Index - - documented in this encounter Progress Notes Ranjith Hughes - 01/13/2010 7:26 PM CDT SUBJECTIVE: Lee Ann Herndon, a 69 year old female scheduled an appointment to discuss the following issues: DEPRESSIVE DISORDER, NOT ELSEWHERE CLASSIFIED PAIN IN JOINT, LOWER LEG URI (UPPER RESPIRATORY INFECTION) Medical, social, surgical, and family histories reviewed. ROS: C: NEGATIVE for fever, chills, change in weight I: NEGATIVE for worrisome rashes, moles or lesions ENT/MOUTH: as above R: NEGATIVE for significant cough or SOB CV: NEGATIVE for chest pain, palpitations or peripheral edema GI: NEGATIVE for nausea, abdominal pain, heartburn, or change in bowel habits : NEGATIVE for frequency, dysuria, or hematuria MUSCULOSKELETAL:hip pain for aseveral weeks , no injury PSYCHIATRIC: HX depression OBJECTIVE: BP 128/78 Pulse 72 Temp(Src) 98.8 ??F (37.1 ??C) (Oral) Ht 5' 3 (1.6 m) SpO2 92% EXAM: GENERAL APPEARANCE: healthy, alert and no distress EYES: EOMI, PERRL HENT: ear canals and TM's normal and inferior turbs are enlarged. RESP: lungs clear to auscultation - no rales, rhonchi or wheezes CV: regular rates and rhythm, normal S1 S2, no S3 or S4 and no murmur, click or rub - ABDOMEN: soft, nontender, no HSM or masses and bowel sounds normal MS: extremities normal- no gross deformities noted, no evidence of inflammation in joints, FROM in all extremities. NEURO: Normal strength and tone, sensory exam grossly normal, mentation intact and speech normal ASSESSMENT/PLAN: 311 DEPRESSIVE DISORDER NEC (primary encounter diagnosis) Plan: EFFEXOR XR# 37.5 MG OR CP24, CELEBREX 100 MG OR CAPS, BACTRIM DS 800-160 MG OR TABS Comment: 719.46 JOINT PAIN-LOWER LEG Plan: EFFEXOR XR# 37.5 MG OR CP24, CELEBREX 100 MG OR CAPS, BACTRIM DS 800-160 MG OR TABS Comment: 465.9J URI (Upper Respiratory Infection) Plan: EFFEXOR XR# 37.5 MG OR CP24, CELEBREX 100 MG OR CAPS, BACTRIM DS 800-160 MG OR TABS Comment: documented in this encounter Nursing Notes 01/13/2010 5:15 PM CDT >> JULIA GASCA Sandy Jan 13, 2010 5:50 PM Patient presents with: RECHECK - follow up medications Sinus Problem - sinus drainage Initial BP 128/78 Pulse 72 Temp(Src) 98.8 ??F (37.1 ??C) (Oral) Ht 5' 3 (1.6 m) SpO2 92% Estimated Body mass index is 34.54 kg/(m^2) as calculated from the following: Height as of this encounter: 5' 3(1.6 m). Weight as of 07/16/09: 195 lb(88.451 kg). BP completed using cuff size large Right Arm Health Maintenance reviewed - Yes: Tobacco Verified: Yes Payor/Verify RX Benefits/Reconcile Disp Completed if allowed: Yes Family History Updated: Yes MyChart Offered: Yes Immunizations Up to Date: Yes Patient refused new weight Julia Gasca PYROTECHNIC ASSEMBLER documented in this encounter Plan of Treatment Not on filedocumented as of this encounter Visit Diagnoses Diagnosis DEPRESSIVE DISORDER NEC - Primary Depressive disorder, not elsewhere class ified JOINT PAIN-LOWER LEG Pain in joint, lower leg URI (upper respiratory infection) Acute upper respiratory infections of un specified site documented in this encounter Care Teams Social Services Manager Relationship Specialty Start Date End Date Ranjith Hughes MD PCP - General 07/11/02 12/17/13 [address] [place] [address] documented as of this encounter
--- OUTSIDE RECORDS SUMMARY | 2022-07-19 23:01 | XMS_ITS | Encounter Summary ---
:1940 Author Organization [place] Address [facility] [place] [address] Care Team Providers Name Role Phone Ranjith Hughes MD Primary Care Provider Reason for Visit Reason Comments Depression Patient wants to talk about med. Refill Request Refill Blood Draw Creatine blood draw Ear Problem Back in 1999 problem with in ner ear. Episode around 9 days ago: Dizziness and nausea. 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; [address] [place] [address] [phone] Social History Tobacco Use Types Packs/Day Years Used Date Smoking Tobacco: Never Alcohol Use Standard Drinks/Week Comments No 0 (1 standard drink = 0.6 oz pure alcoho l) Sex Assigned at Date Recorded Not on file documented as of this encounter Last Filed Vital Signs Vital Sign Reading Time Taken Comments Blood Pressure 152/98 02/28/2008 9:15 AM CDT Pulse 92 02/28/2008 9:15 AM CDT Temperature 37 ??C (98.6 ??F) 02/28/2008 9:15 AM CDT Respiratory Rate - - Oxygen Saturation - - Inhaled Oxygen Concentration - - Weight - - Height - - Body Mass Index - - documented in this encounter Progress Notes Ranjith Hughes - 02/28/2008 9:39 AM CDT She needs a DT update. Celebrex helps with tinnitus SUBJECTIVE: Lee Ann Herndon, a 67 year old female scheduled an appointment to discuss the following issues: PAIN IN JOINT, LOWER LEG ANXIETY UNSPECIFIED VERTIGINOUS SYNDROMES AND LABYRINTHINE DISORDERS TDAP VACCINE Medical, social, surgical, and family histories reviewed. ROS: C: NEGATIVE for fever, chills, change in weight I: NEGATIVE for worrisome rashes, moles or lesions E/M: NEGATIVE for ear, mouth and throat problems R: NEGATIVE for significant cough or SOB CV: NEGATIVE for chest pain, palpitations or peripheral edema GI: NEGATIVE for nausea, abdominal pain, heartburn, or change in bowel habits M: NEGATIVE for significant arthralgias or myalgia OBJECTIVE: BP 152/98 Pulse 92 Temp (Src) 98.6 ??F (37 ??C) (Oral) LMP Postmenopausal EXAM: GENERAL APPEARANCE: healthy, alert and no distress EYES: nystagmus HENT: ear canals and TM's normal and nose and mouth without ulcers or lesions HENT: ear canals and TM's normal RESP: lungs clear to auscultation - no rales, rhonchi or wheezes CV: regular rates and rhythm, normal S1 S2, no S3 or S4 and no murmur, click or rub - ABDOMEN: soft, nontender, no HSM or masses and bowel sounds normal Psych; he appears anxious Ms; knee pain bilaterally; otherwise stable knees. ASSESSMENT/PLAN: 719.46 Pain in Joint, Lower Leg (primary encounter diagnosis) Comment: Plan: CELEBREX 200 MG OR CAPS 300.00E Anxiety Comment: Plan: ZOLOFT 50 MG OR TABS, CREATININE 386.9 Unspecified Vertiginous Syndromes and Labyrinthine Disorders Comment: Plan: Please see the above orders V06.1K TDaP Vaccine Comment: Updated today on her immunizations. Plan: TDAP (ADACEL AGES 11-64) documented in this encounter Nursing Notes 02/28/2008 9:15 AM CDT >> NATIVIDAD GODDARD SunFebruary 28, 2008 9:11 AM Patient presents with: Depression - Patient wants to talk about med. Refill Request - Refill Blood Draw - Creatine blood draw Ear Problem - Back in 1999 problem with inner ear. Episode around 9 days ago: Dizziness and nausea. Initial BP 152/98 Pulse 92 Temp (Src) 98.6 ??F (37 ??C) (Oral) LMP Postmenopausal Estimated Body mass index is 41.10 kg/(m^2) as calculated from: Height of 5' 3 (1.6 m) as of 02/12/07 Weight of 232 lb (105.235 kg) as of 02/12/07 BP completed using cuff size large right arm. Patient declined wt. Natividad Goddard-NURSE MONITORING documented in this encounter Plan of Treatment Not on filedocumented as of this encounter Procedures Procedure Name Priority Date/Time Associated Diagnosis Comme nts HCL CREATININE Routine 02/28/2008 9:49 AM Anxiety Results for this CDT procedure are i n the results section . documented in this encounter Results CREATININE (02/28/2008 9:49 AM CDT) athologist Signature Creatinine 0.78 0.52 - 1.04 [facility]dL [facility] Comment: New IDMS-traceable calibration beginning 01/30/08 GFR Estimate 74 >60 mL/min/1.7m2 [facility] GFR Estimate If Black 90 >60 mL/min/1.7m2 [facility] Specimen Anatomical Collection Method Collection Time Receive d Time (Source) Location / / Volume Laterality 02/28/2008 9:49 AM 8 9:51 CDT AM CDT Ranjith Hughes MD LABORATORY Performing Organization Address City/State/ZIP Code Phon e Number [facility] [address] [place] [address] [facility] documented in this encounter Visit Diagnoses Diagnosis Pain in joint, lower leg - Primary Anxiety Anxiety state, unspecified 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
--- OUTSIDE RECORDS SUMMARY | 2022-07-19 23:01 | XMS_ITS | Encounter Summary ---
:1940 Author Organization [place] Address [facility] [place] [address] Care Team Providers Name Role Phone Ranjith Hughes MD Primary Care Provider Reason for Visit Reason Onset Date Comments Patient/info Update 03/02/2008 Would like you to in crease her Lexapro Slk Encounter Details Date Type Department Care Team Description 03/02/[address] [facility] Ranjith Hughes Patien t/info Update Clinic [place] (Would like you to [address] [place] [address] increase her Lexapro [place], [place] Slk) [phone] [id number] Social History Tobacco Use Types Packs/Day Years Used Date Smoking Tobacco: Never Alcohol Use Standard Drinks/Week Comments No 0 (1 standard drink = 0.6 oz pure alcoho l) Sex Assigned at Date Recorded Not on file documented as of this encounter Miscellaneous Notes Telephone Encounter - Fely Cordero - 03/02/2008 10:41 AM CDT Pt called and would like you to increase her Lexapro, she is currently taking 10mg daily. Please advise and call her back at [phone].Fely Cordero RN. documented in this encounter Plan of Treatment Not on filedocumented as of this encounter Visit Diagnoses Diagnosis DEPRESSIVE DISORDER NEC - Primary Depressive disorder, not elsewhere class ified documented in this encounter Care Teams Steel Placer Relationship Specialty Start Date End Date Ranjith Hughes MD PCP - General 07/11/02 12/17/13 [address] [place] [address] documented as of this encounter
--- OUTSIDE RECORDS SUMMARY | 2022-07-19 23:01 | XMS_ITS | Encounter Summary ---
:1940 Author Organization [place] Address [address] [place] [address]. [place] [address] Care Team Providers Name Role Phone Ranjith Hughes MD Primary Care Provider Reason for Visit Reason Onset Date Comments SOLAR SALES REP - FOLLOW UP 05/16/2008 ED - Eval (Paro tiditis) Encounter Details Date Type Department Care Team Description 05/19/2008 Telephone [place] [facility] Blank Morales SOLAR SALES REP - FOLLOW ASSOCIATES - CARE [facility] PHYSICIAN UP (ED - E magen [facility] (Parotiditis)) [address] [place] [address] [place] [address] [phone] Social History Tobacco Use Types Packs/Day Years Used Date Smoking Tobacco: Never Alcohol Use Standard Drinks/Week Comments No 0 (1 standard drink = 0.6 oz pure alcoho l) Sex Assigned at Date Recorded Not on file documented as of this encounter Miscellaneous Notes Telephone Encounter - Jacqueline Morales - 05/19/2008 3:27 PM CDT Made post ED follow-up call to member. Her facial swelling is subsiding. She has a high tolerance for pain and is taking Ibuprofen for the pain rather than Darvocet. She is still taking the Cleocin andknows that she needs to finish it. She is also icing her face and says that is beneficial. She didn't see much benefit in sucking on the hard candies, so stopped that. She was not told to follow-up with her PCP and said she would if she has more problems or if it does not completely resolve. She denies any other problems and says, I am healthy and feel good otherwise. No other needs identified at this time. Jacqueline Morales RN CM FPA documented in this encounter Plan of Treatment Not on filedocumented as of this encounter Visit Diagnoses Not on filedocumented in this encounter Care Teams Law Professor Relationship Specialty Start Date End Date Ranjith Hughes MD PCP - General 07/11/02 12/17/13 [address] [place] [address] documented as of this encounter
--- OUTSIDE RECORDS SUMMARY | 2022-07-19 23:01 | XMS_ITS | Encounter Summary ---
:[address] [place] Address [facility] [place] [address] Care Team Providers Name Role Phone Ranjith Hughes MD Primary Care Provider Reason for Visit Reason Onset Date Comments BANK AND SAVINGS SECURITIES TRADER - FOLLOW UP 07/19/2009 ED follow up ca ll. Encounter Details Date Type Department Care Team Description 07/19/2009 Telephone [place] [facility] Blank Morales B[employer]INGS SECURITIES TRADER - FOLLOW ASSOCIATES - CARE PHYSICIAN UP (ED fol low up [facility] call.) [address] [place] [address] [place] [address] [phone] Social History Tobacco Use Types Packs/Day Years Used Date Smoking Tobacco: Never Alcohol Use Standard Drinks/Week Comments No 0 (1 standard drink = 0.6 oz pure alcoho l) Sex Assigned at Date Recorded Not on file documented as of this encounter Miscellaneous Notes Telephone Encounter - Alix Bush - 07/19/2009 3:23 PM CDT 07/19/09 This FPA [facility] member [facility] 07[facility]17[facility]09, DX:Perineal Itching and Foot Pain. PASS, ERV, EPIC and FCIS reviewed. Discharged to home without services. Reports understanding of discharge medications and instructions. Has made a follow up appt with PCP as recommended. Monika Bush LPN CC FPA [phone] documented in this encounter Plan of Treatment Not on filedocumented as of this encounter Visit Diagnoses Not on filedocumented in this encounter Care Teams Nailing Machine Operator Automatic Relationship Specialty Start Date End Date Ranjith Hughes MD PCP - General 07/11/02 12/17/13 [address] [place] [address] documented as of this encounter
--- OUTSIDE RECORDS SUMMARY | 2022-07-19 23:01 | XMS_ITS | Encounter Summary ---
:1940 Author Organization [place] Address [facility] [place] [address] Care Team Providers Name Role Phone Ranjith Hughes MD Primary Care Provider Reason for Visit Reason Onset Date Comments Refill Request 09/20/2007 celebrex Encounter Details Date Type Department Care Team Description 09/20/2007 Refill [facility] Ranjith Hughes MD Refill Request [address] (celebrex) [id number] [place] [address] [id number] [phone] Social History Tobacco Use Types Packs/Day Years Used Date Smoking Tobacco: Never Alcohol Use Standard Drinks/Week Comments No 0 (1 standard drink = 0.6 oz pure alcoho l) Sex Assigned at Date Recorded Not on file documented as of this encounter Miscellaneous Notes Telephone Encounter - Shemar Catherine - 09/20/2007 4:32 PM CST ,Refill approved. Rx faxed. Shemar Catherine MD [facility] R SCRAPMAN Telephone Encounter - Natividad Carver - 09/20/2007 3:55 PM CST Last office visit: [id number] Reason for visit: sinusitis Date last filled: #[id number] CREATININE Date Value Range Status 03/11/2006 0.90 - (mg/dL) Final ] CANNOT FILL PSO CR IS NOT UP-TO-DATE FUTURE LAB ORDER PLACED LETTER SENT Acacia Carver RN R SCRAPMAN documented in this encounter Plan of Treatment Not on filedocumented as of this encounter Visit Diagnoses Diagnosis Pain in joint, lower leg - Primary documented in this encounter Care Teams Woodworker Helper Relationship Specialty Start Date End Date Ranjith Hughes MD PCP - General 07/11/02 12/17/13 [address] [place] [address] documented as of this encounter
--- OUTSIDE RECORDS SUMMARY | 2022-07-19 23:01 | XMS_ITS | Encounter Summary ---
:1940 Author Organization [place] Address [address] [place] [address]. [place] [address] Care Team Providers Name Role Phone Ranjith Hughes MD Primary Care Provider Reason for Visit Reason Onset Date Comments Refill Request 09/01/2009 Lexapro Encounter Details Date Type Department Care Team Description 09/01/2009 Refill [facility] Ranjith Hughes MD Refill Request (Lexapro) [address] [phone] Social History Tobacco Use Types Packs/Day Years Used Date Smoking Tobacco: Never Alcohol Use Standard Drinks/Week Comments No 0 (1 standard drink = 0.6 oz pure alcoho l) Sex Assigned at Date Recorded Not on file documented as of this encounter Miscellaneous Notes Telephone Encounter - Eduardo Borja - 09/03/2009 10:54 AM CST Pt informed. She agreed to schedule f/u visit. Eduardo Borja LPN R WORKER WELL SERVICE Telephone Encounter - Ranjith Hughes - 09/01/2009 1:20 PM CST Filled but she needs to come in . This is part of manter policy. I would like to deviate but cant R WORKER WELL SERVICE Telephone Encounter - Adriane Echeverria - 09/01/2009 10:32 AM CST Patient calling- She is requesting a refill for Lexapro as she is almost out of it. With her last refill she was advised that she needs a follow up office visit. She is calling today to let you know that she doesn;t feel that she needs to see you, states she is doing well on this dose. Would like to get more refills without coming in. Doesn;t want to expose herself or her grandaughter to illness if not needed. Last OV was 07/16/09 with Radha Pleasants No PHQ9 in her chart. Unable to do PSO Would you like to refill this? She would like us to let her know at [phone] (home) Adriane Echeverria RN R WORKER WELL SERVICE documented in this encounter Plan of Treatment Not on filedocumented as of this encounter Visit Diagnoses Diagnosis DEPRESSIVE DISORDER NEC Depressive disorder, not elsewhere class ified documented in this encounter Care Teams Fish Filleter Relationship Specialty Start Date End Date Ranjith Hughes MD PCP - General 07/11/02 12/17/13 [address] [place] [address] documented as of this encounter
--- OUTSIDE RECORDS SUMMARY | 2022-07-19 23:01 | XMS_ITS | Encounter Summary ---
:1940 Author Organization [place] Address [facility] [place] [address] Care Team Providers Name Role Phone Ranjith Hughes MD Primary Care Provider Reason for Visit Reason Onset Date Comments DIRECTOR DIGITAL COMMUNICATIONS - FOLLOW UP 08/09/2010 ED f/u call Encounter Details Date Type Department Care Team Description 08/09/2010 Telephone [place] [facility] Nimo Sarah DIRECTOR DIGITAL COMMUNICATIONS - FOLLOW UP ASSOCIATES - CARE (ED f/u ca ll) MANAGEMENT DEPT [address] [place] [address] Social History Tobacco Use Types Packs/Day Years Used Date Smoking Tobacco: Never Alcohol Use Standard Drinks/Week Comments No 0 (1 standard drink = 0.6 oz pure alcoho l) Sex Assigned at Date Recorded Not on file documented as of this encounter Miscellaneous Notes Telephone Encounter - Nimo Sarah - 08/11/2010 3:04 PM CST Patient returned call on 08/11/10 to say she isn't much better yet but is continuing taking the Clindamycin and Albuterol inhaler even though she is very concerned she will develop diarrhea as she has in the past when taking any antibiotics. Does have imodium at home. Has not called to make f/u appt yet to see Dr. Hughes but will. Encouraged to call to be seen sooner or to call and speak w/Dr Hughes's nurse if diarrhea not controlled by OTC meds. Agreed. No further questions or concerns at this time. Nimo Sarah RN, Mower Sharpener. FPA [phone] USER CONSULTANT Telephone Encounter - Nimo Sarah - 08/09/2010 2:38 PM CST vm left regarding 08/09/10 ED visit for sinusitis/bronchitis. Was started on Clindamyacin and Albuterol. Directed to make f/u appt to see pcp next week. Nimo Sarah RN, Mower Sharpener. FPA [phone] USER CONSULTANT documented in this encounter Plan of Treatment Not on filedocumented as of this encounter Visit Diagnoses Not on filedocumented in this encounter Care Teams Core Loader Relationship Specialty Start Date End Date Ranjith Hughes MD PCP - General 07/11/02 12/17/13 [address] [place] [address] documented as of this encounter
--- OUTSIDE RECORDS SUMMARY | 2022-07-19 23:01 | XMS_ITS | Encounter Summary ---
:1940 Author Organization [place] Address [address] [facility] [place] [address] Care Team Providers Name Role Phone Ranjith Hughes MD Primary Care Provider Reason for Visit Reason Onset Date Comments Medication Problem 02/08/2010 pt had bad nightmare s on effexor, asking to go back on zoloft Encounter Details Date Type Department Care Team Description 02/08/2010 [facility] Ranjith Hughes MD Medication Problem (pt [place] [address] [place] [address] [place], [place] effexor, [place] [address] back on zoloft) [address] [phone] Social History Tobacco Use Types Packs/Day Years Used Date Smoking Tobacco: Never Alcohol Use Standard Drinks/Week Comments No 0 (1 standard drink = 0.6 oz pure alcoho l) Sex Assigned at Date Recorded Not on file documented as of this encounter Miscellaneous Notes Telephone Encounter - Sofia Pitts - 02/08/2010 12:02 PM CDT Called pt to inform that is out this week, and that she would need to see antoher provider to geta change in her depression medication. We did set up an appt. For pt to come in tomorrow to see FLACA regarding her depression, and medication. V. Jahr, R.N. Telephone Encounter - Sofia Pitts - 02/08/2010 11:47 AM CDT Message copied by SOFIA PITTS on SunFebruary 08, 2010 11:47 AM ------ Message from: RACHID DAVIS Created: SunFebruary 08, 2010 10:52 AM Regarding: -Zoloft request First and Last name of caller: Lee Ann Katrina Relationship to patient: self Reason for call: pt having nightmares on Effexor, has dicontinued it. Pt would like to go back to Zoloft 50mg for depression Is it in regards to a medication: yes Med Name: Zoloft Pharmacy name and location: [facility] Provider they see: Saul Phone number they can be reached at: [phone] Ok to leave a message: please call pt when done/or if questions Rachid Dunn documented in this encounter Plan of Treatment Not on filedocumented as of this encounter Visit Diagnoses Diagnosis Anxiety Anxiety state, unspecified documented in this encounter Care Teams Net Mobile Developer Relationship Specialty Start Date End Date Ranjith Hughes MD PCP - General 07/11/02 12/17/13 [address] [place] [address] documented as of this encounter
--- OUTSIDE RECORDS SUMMARY | 2022-07-19 23:01 | XMS_ITS | Encounter Summary ---
:1940 Author Organization [facility] Address [address] [place] [address]. [place] [address] Care Team Providers Name Role Phone Ranjith Hughes MD Primary Care Provider Reason for Visit Reason Onset Date Comments Refill Request 03/16/2009 lexapro Encounter Details Date Type Department Care Team Description 03/16/2009 Refill [facility] Ranjith Hughes MD Refill Request (lexapro) [address] [phone] Social History Tobacco Use Types Packs/Day Years Used Date Smoking Tobacco: Never Alcohol Use Standard Drinks/Week Comments No 0 (1 standard drink = 0.6 oz pure alcoho l) Sex Assigned at Date Recorded Not on file documented as of this encounter Miscellaneous Notes Telephone Encounter - Nimo Davis - 03/16/2009 3:01 PM CDT Date of last OV: 02/24/09 Reason for visit: pre-op L foot ankle repair Date last filled: 08/25/08 390 Labs pertaining to med: Last PHQ-9 score on record= No Value exists for the TUCKER: [id number] Medication approved per standing orders for one month only- needs OV, letter sent. Nimo Davis RN documented in this encounter Plan of Treatment Not on filedocumented as of this encounter Visit Diagnoses Diagnosis DEPRESSIVE DISORDER NEC - Primary Depressive disorder, not elsewhere class ified documented in this encounter Care Teams Knit Goods Mender Relationship Specialty Start Date End Date Ranjith Hughes MD PCP - General 07/11/02 12/17/13 [address] [place] [address] documented as of this encounter
--- OUTSIDE RECORDS SUMMARY | 2022-07-19 23:01 | XMS_ITS | Encounter Summary ---
:1940 Author Organization [facility] Address [address] [place] [address] Care Team Providers Name Role Phone Ranjith Hughes MD Primary Care Provider Encounter Details Date Type Department Care Team Description 07/17/2009 Emergency room [facility] Salazar Alcantar MD Hospital Results EMERGENCY [facility]YSI [facility] [address] [place], [place] [address] (Wo rk) Social History Tobacco Use Types Packs/Day Years Used Date Smoking Tobacco: Never Alcohol Use Standard Drinks/Week Comments No 0 (1 standard drink = 0.6 oz pure alcoho l) Sex Assigned at Date Recorded Not on file documented as of this encounter Progress Notes Salazar Spears - 08/08/2009 11:05 AM CORPORATE PHYSICAL SECURITY SUPERVISOR FINAL CHIEF COMPLAINT: The patient fell out of bed, right great toe injury. HISTORY OF PRESENT ILLNESS: Brady Escobar is a 69-year-old female who presents to emergency department after she fell out of bed at night. She did not hit her head. She did not lose consciousness. She just complains of 10/10 right great toe pain. She has never injured this toe in the past. She haddifficulty ambulating on this. She has bilateral knee arthroplasties, a fairly recent left foot surgery. Her house is set up for a wheelchair. She has a wheelchair, walker and cane at home. PAST MEDICAL HISTORY: Depression, GERD. SOCIAL HISTORY: The patient ambulates with a cane and walker depending on the day. She lives with her . FAMILY MEDICAL HISTORY: Noncontributory. MEDICATIONS: Lexapro, omeprazole. ALLERGIES: 1. Penicillin. 2. Risperdal. 3. Keflex. 4. Tetracycline. 5. Azithromycin 6. Zoloft. 7. Algitrin. 8. Celexa. 9. Effexor. 10. Ampicillin 11. Cephalosporins. REVIEW OF SYSTEMS: Ten-point review of systems completed and negative except for elements in the HPI. PHYSICAL EXAMINATION: VITAL SIGNS: Temperature 97.6, heart rate 84, respiratory rate 20, blood pressure 135/86, oxygen saturation 95% on room air. GENERAL: The patient is alert, oriented, in no acute distress. She is calm and cooperative. There is no diaphoresis. HEENT: Normocephalic, atraumatic. Pupils equal, round, react to light. There is no scleral icterus. There is no conjunctival pallor. Nares are patent bilaterally. Oropharynx is clear, no lesion or exudate. NECK: Supple. There is no cervical spine tenderness. BACK: No T or L spine tenderness. RESPIRATORY: Lungs are clear to auscultation bilaterally, no wheezes, rales or rhonchi. HEART: Regular rate and rhythm, no murmurs, rubs or gallops. ABDOMEN: Obese, soft, nondistended, nontender, normoactive bowel sounds. EXTREMITIES: Warm and well perfused. Radial pulses 2+ symmetric bilaterally. Right dorsalis pedis pulse 2+. On examination of her right foot, there is no medial or lateral malleolar tenderness, no midfoot tenderness, only tenderness and erythema and edema over the first MTP joint. She can wiggle hertoes. There are no breaks in the skin. Sensation to light touch is intact throughout all the toes. Capillary refill distally in all toes is less than 2 seconds. NEUROLOGIC: The patient is alert and oriented. GCS 15. Moving all 4 extremities spontaneously. Sensation to light touch intact over extremities. SKIN: Warm and dry. LABORATORY AND DIAGNOSTIC IMAGING: X-ray of the right foot shows no acute fracture or dislocation. EMERGENCY DEPARTMENT COURSE: A 69-year-old female status post fall out of bed. She has tenderness and pain in her right great toe only. X-ray shows no fracture. She has a recent significant surgery toher left foot and her house is set up for a wheelchair. She also has a walker to use at home as needed. As such, I do not think she needs any type of assist device. I told to follow up with her primarycare physician in 3-4 days as she is having persistent pain as sometimes there can be an early fracture that is not seen initially on x-ray. She was given a right postop shoe and discharged home. She does have multiple pain medications at home. As such, she declined the need for any here. She was given 1 Darvocet for her discomfort. ASSESSMENT: Right great toe injury. DISPOSITION: Stable to home. Electronically signed on 08/08/2009 11:05 by SALAZAR SPEARS MD MT: JEOVANNY#[id number] Name: BRADY ESCOBAR Account: [id number] : 1940 Visit Date: 07/17/2009 Document: [id number] cc: Ranjith Hughes MD ORATE PHYSICAL SECURITY SUPERVISOR documented in this encounter Plan of Treatment Not on filedocumented as of this encounter Visit Diagnoses Not on filedocumented in this encounter Care Teams Die Cutter Relationship Specialty Start Date End Date Ranjith Hughes MD PCP - General 07/11/02 12/17/13 [address] [place] [address] documented as of this encounter
--- OUTSIDE RECORDS SUMMARY | 2022-07-19 23:01 | XMS_ITS | Encounter Summary ---
:1940 Author Organization [facility] Address [facility] [place] [address] Care Team Providers Name Role Phone Ranjith Hughes MD Primary Care Provider Reason for Visit Reason Comments Hypertension blood pressure follow up and refills Encounter Details Date Type Department Care Team Description 07/05/2010 Office Visit [facility] Ranjith Hughes, Anxiet y; [facility] [place] MD JOINT PAIN-LOWER LEG; [address] [facility] [id number] [place] [address] DEPRESSIVE DISORDER NEC; [place], [place] URI (up per respiratory infection); [id number] GERD (GASTROESOPHAGEAL REFLUX DISEASE) [phone] Social History Tobacco Use Types Packs/Day Years Used Date Smoking Tobacco: Never Alcohol Use Standard Drinks/Week Comments No 0 (1 standard drink = 0.6 oz pure alcoho l) Sex Assigned at Date Recorded Not on file documented as of this encounter Last Filed Vital Signs Vital Sign Reading Time Taken Comments Blood Pressure 140/80 07/05/2010 10:23 AM CDT Pulse 90 07/05/2010 10:23 AM CDT Temperature 37.1 ??C (98.8 ??F) 07/05/2010 10:23 AM CDT Respiratory Rate 20 07/05/2010 10:23 AM CDT Oxygen Saturation 95% 07/05/2010 10:23 AM CDT Inhaled Oxygen Concentration - - Weight - - Height - - Body Mass Index - - documented in this encounter Progress Notes Ranjith Hughes - 07/05/2010 5:09 PM CDT SUBJECTIVE: Lee Ann Herndon, a 70 year old female scheduled an appointment to discuss the following issues: ANXIETY PAIN IN JOINT, LOWER LEG DEPRESSIVE DISORDER, NOT ELSEWHERE CLASSIFIED URI (UPPER RESPIRATORY INFECTION) She does need A refill of her medications. Medical, social, surgical, and family histories reviewed. [...] : NEGATIVE for frequency, dysuria, or hematuria MUSCULOSKELETAL:A history of joint pain PSYCHIATRIC: Depression OBJECTIVE: BP 140/80 Pulse 90 Temp(Src) 98.8 ??F (37.1 ??C) (Oral) Resp 20 SpO2 95% EXAM: GENERAL APPEARANCE: healthy, alert and no [...] HSM or masses and bowel sounds normal NEURO: Normal strength and tone, sensory exam grossly normal, mentation intact and speech normal PSYCH: mentation appears normal. and affect normal/bright ASSESSMENT/PLAN: 300.00E Anxiety Comment: Plan: sertraline (ZOLOFT) 50 MG tablet 719.46 JOINT PAIN-LOWER LEG Comment: Plan: celecoxib (CELEBREX) 100 MG capsule 311 DEPRESSIVE DISORDER NEC Comment: Plan: celecoxib (CELEBREX) 100 MG capsule 465.9J URI (upper respiratory infection) Comment: Plan: celecoxib (CELEBREX) 100 MG capsule documented in this encounter Nursing Notes 07/05/2010 10:15 AM CDT >> JULIA Jackson Jul 05, 2010 4:06 PM Patient refused new height and weight. Julia Alicia SUPERVISOR PRINTING AND STAMPING >> JULIA Jackson Jul 05, 2010 10:29 AM Patient presents with: Blood Pressure - blooe pressure follow up and refills Initial BP 140/80 Pulse 90 Temp(Src) 98.8 ??F (37.1 ??C) (Oral) Resp 20 SpO2 95% Estimated Body mass index is 34.54 kg/(m^2) as calculated from the following: Height as of 01/13/10: 5' 3(1.6 m). Weight as of 07/16/09: 195 lb(88.451 kg). BP completed using cuff size large Right Arm Health Maintenance reviewed - Yes: Tobacco Verified: Yes Payor/Verify RX Benefits/Reconcile Disp Completed if allowed: Yes Family History Updated: Yes MyChart Offered: Yes Immunizations Up to Date: Yes Julia Alicia LPN documented in this encounter Plan of Treatment Not on filedocumented as of this encounter Visit Diagnoses Diagnosis Anxiety Anxiety state, unspecified JOINT PAIN-LOWER LEG Pain in joint, lower leg DEPRESSIVE DISORDER NEC Depressive disorder, not elsewhere class ified URI (upper respiratory infection) Acute upper respiratory infections of un specified site GERD (gastroesophageal reflux disease) Esophageal reflux documented in this encounter Care Teams Willow Worker Relationship Specialty Start Date End Date Ranjith Hughes MD PCP - General 07/11/02 12/17/13 [address] [place] [address] documented as of this encounter
--- OUTSIDE RECORDS SUMMARY | 2022-07-19 23:01 | XMS_ITS | Encounter Summary ---
:1940 Author Organization [facility] Address [address] [place] [address] Care Team Providers Name Role Phone Ranjith Hughes MD Primary Care Provider Encounter Details Date Type Department Care Team Description 05/16/[address] [facility] Vivienne Owen MD Hospital Results [address] [place] [address] Social History Tobacco Use Types Packs/Day Years Used Date Smoking Tobacco: Never Alcohol Use Standard Drinks/Week Comments No 0 (1 standard drink = 0.6 oz pure alcoho l) Sex Assigned at Date Recorded Not on file documented as of this encounter Progress Notes Interface, Academic Vice President - 05/24/2008 6:41 PM CDT FINAL CHIEF COMPLAINT: Facial swelling. HISTORY OF PRESENT ILLNESS: The patient is a 68-year-old female who had just finished eating supperwhen she noted swelling in the left check area of her face that extends to her upper neck. She says she has had some numb feeling around her left lower lip. She had been well prior to the onset of her symptoms, she has not had any fevers or chills. She is here with her daughter. MEDICATIONS: Celebrex, omeprazole, an antidepressant, Lexapro, and possibly Coumadin. ALLERGIES: Multiple, she can only take Cleocin. PHYSICAL EXAM: GENERAL: Alert female. VITALS: Temperature 98.1, pulse 98, respirations 18, blood pressure 149/100, pulse ox 9% on room air. HEENT: She has mild swelling and tenderness of the left parotid. Her ears are normal. Her mouth and pharynx show tenderness around the left parotid pupilla that reproduces her symptoms. NECK: Supple. LYMPHATICS: Negative. EMERGENCY DEPARTMENT COURSE: The situation was discussed with the patient, this looks like a parotid duct stone, I doubt she has a hemorrhage in to her gland or an infection at this point, still we will cover her with cleocin and treat her symptomatically. She will need to followup in the office if she does not improve over the next couple of days. DISCHARGE PLAN: The patient was prescribed cleocin 300 mg 4 times a day for 7 days and Darvocet 100, 1 every four hours as needed for pain 20. She can apply ice to the painful area. She should suck onhard candy to promote secretion. She is to be rechecked with her doctor in 3 days, sooner if needed and may return to the emergency department as needed. DIAGNOSIS: Left parotiditis. Electronically signed on 05/24/2008 18:40 by VIVIENNE OWEN MD MT: [id number] Name: BRADY ESCOBAR Account: [id number] : 1940 Visit Date: 05/16/2008 Document: [id number] documented in this encounter Plan of Treatment Not on filedocumented as of this encounter Visit Diagnoses Not on filedocumented in this encounter Care Teams Permit Coordinator Relationship Specialty Start Date End Date Ranjith Hughes MD PCP - General 07/11/02 12/17/13 [address] [place] [address] documented as of this encounter
--- OUTSIDE RECORDS SUMMARY | 2022-07-19 23:01 | XMS_ITS | Encounter Summary ---
:1940 Author Organization [facility] Address [facility] [place] [address] Care Team Providers Name Role Phone Ranjith Hughes MD Primary Care Provider Reason for Visit Reason Comments Depression DC'ed Effexor due to horrifi c nightmares, personality changes and feet swelling. Would like to go b ack to [facility] Encounter Details Date Type Department Care Team Description 02/09/2010 Office Visit [facility] Julia White, Anxiety (Primary Dx) Clinic [address] [address] [phone] Social History Tobacco Use Types Packs/Day Years Used Date Smoking Tobacco: Never Alcohol Use Standard Drinks/Week Comments No 0 (1 standard drink = 0.6 oz pure alcoho l) Sex Assigned at Date Recorded Not on file documented as of this encounter Last Filed Vital Signs Vital Sign Reading Time Taken Comments Blood Pressure 140/90 02/09/2010 5:17 PM CDT (from Ex tended Vitals) Pulse - - Temperature - - Respiratory Rate - - Oxygen Saturation - - Inhaled Oxygen Concentration - - Weight - - Height - - Body Mass Index - - documented in this encounter Progress Notes Julia Figueroa - 02/09/2010 5:13 PM CDT Subjective: Lee Ann Herndon is a 69 year old female who presents for follow up of depression. Lee Ann is on effexor but quit a week ago for treatment and is having side effects. She is having nightmares and lotsof swelling on this. she would like to go back to zoloft which she was on 2-3 years ago. Past Medical History Diagnosis Date ??? Esophageal Reflux ??? Depressive Disorder, not Elsewhere Classified Current outpatient prescriptions Medication Sig ??? ZOLOFT 50 MG PO TABS 1/2 tab orally per day for 8 days, then one tab per day ??? CELEBREX 100 MG OR CAPS 1 CAPSULE TWICE DAILY ??? PRILOSEC 20 MG OR CPDR 1 TAB PO QD (Once per day) History Substance Use Topics ??? Tobacco Use: Never ??? Alcohol Use: No Objective: Blood pressure 144/104. Chest: clear to auscultation bilaterally CV: Regular rate and rhythm without murmurs Affect: full Mood: good The patient denies suicidal thoughts. PHQ-9: 16 Assessment: 1. depression Plan: 1. Will start ZOLOFT 50 MG PO TABS 2. We discussed/reviewed the side effects of the prescribed medications 3. Follow up in 4-6 weeks for recheck on zoloft and recheck on her blood pressure documented in this encounter Nursing Notes 02/09/2010 4:30 PM CDT >> NATIVIDAD WRIGHT Wed February 09, 2010 4:45 PM Patient presents with: Depression - DC'ed Effexor due to horrific nightmares, personality changes and feet swelling. Wouldlike to go back to Zoloft HT/WT DECLINED BY PATIENT Initial BP 144/104 Estimated Body mass index is 34.54 kg/(m^2) as calculated from the following: Height as of 01/13/10: 5' 3(1.6 m). Weight as of 07/16/09: 195 lb(88.451 kg). BP completed using cuff size large Natividad Wright/LUIS EDUARDO documented in this encounter Plan of Treatment Not on filedocumented as of this encounter Visit Diagnoses Diagnosis Anxiety - Primary Anxiety state, unspecified documented in this encounter Care Teams Silk Screen Layout Drafter Relationship Specialty Start Date End Date Ranjith Hughes MD PCP - General 07/11/02 12/17/13 [address] [place] [address] documented as of this encounter
--- OUTSIDE RECORDS SUMMARY | 2022-07-19 23:01 | XMS_ITS | Encounter Summary ---
:1940 Author Organization [facility] Address [address] [place] [address] Care Team Providers Name Role Phone Ranjith Hughes MD Primary Care Provider Encounter Details Date Type Department Care Team Description 03/08/2007 Historic Results [facility] Theodore Morrissey MD Hospitalists [facility] [address] ORTHOPEDICS [place], [place] [address] [facility] [address] [address] [place], [place] [address] (Wo rk) Social History [...] Date/Time Associated Diagnosis Comme nts INR Routine 03/08/2007 1:00 PM Results f or this CDT procedure are i n the results section . documented in this encounter Results (ABNORMAL) INR (03/08/2007 1:00 PM CDT) P athologist Signature INR 1.96 (H) 0.86 - 1.14 MISYS Specimen Anatomical Collection Method Collection Time Receive d Time (Source) Location / / Volume Laterality 03/08/2007 1:00 PM 7 CDT 12:49 PM CDT Theodore Palmer MD LAB - BLOOD ORDERABLES Performing Organization Address City/State/ZIP Code Phon e Number MISYS documented in this encounter Visit Diagnoses Not on filedocumented in this encounter Care Teams Armature Varnisher Relationship Specialty Start Date End Date Ranjith Hughes MD PCP - General 07/11/02 12/17/13 [address] [place] [address] documented as of this encounter
--- OUTSIDE RECORDS SUMMARY | 2022-07-19 23:01 | XMS_ITS | Encounter Summary ---
:1940 Author Organization [facility] Address [facility] [place] [address] Care Team Providers Name Role Phone Ranjith Hughes MD Primary Care Provider Reason for Visit Reason Onset Date Comments Refill Request 06/16/2010 Zoloft 50mg Encounter Details Date Type Department Care Team Description 06/16/[address] [facility] Ranjith Hughes MD Refill Request (Zoloft [place] [address] 50mg) [address] [place] [id number] [phone] Social History Tobacco Use Types Packs/Day Years Used Date Smoking Tobacco: Never Alcohol Use Standard Drinks/Week Comments No 0 (1 standard drink = 0.6 oz pure alcoho l) Sex Assigned at Date Recorded Not on file documented as of this encounter Miscellaneous Notes Telephone Encounter - Eduardo Borja - 06/16/2010 8:27 AM CDT Medication: Zoloft 50mg 1 tab daily Last OV: 02/09/10 Provider: Dr. White Reason for visit: anxiety Last refill: 05/21/10 #30 Last PHQ-9 score on record 02/09/10= 15 No future appointments scheduled. Dr. White's note: Assessment: 1.?? depression Plan: 1. Will start ZOLOFT 50 MG PO TABS 2. We discussed/reviewed the side effects of the prescribed medications 3. Follow up in 4-6 weeks for recheck on zoloft and recheck on her blood pressure?? Medication approved per standing orders 30 days only - Letter sent due for visit. Eduardo Borja RN documented in this encounter Plan of Treatment Not on filedocumented as of this encounter Visit Diagnoses Diagnosis Anxiety - Primary Anxiety state, unspecified documented in this encounter Care Teams First Assistant Relationship Specialty Start Date End Date Ranjith Hughes MD PCP - General 07/11/02 12/17/13 [address] [place] [address] documented as of this encounter
--- OUTSIDE RECORDS SUMMARY | 2022-07-19 23:01 | XMS_ITS | Encounter Summary ---
:1940 Author Organization [place] Address [address] [place] [address] Care Team Providers Name Role Phone Ranjith Hughes MD Primary Care Provider Encounter Details Date Type Department Care Team Description 03/04/2007 Historic Results [place] Theodore Morrissey MD Hospitalists [facility] [address] ORTHOPEDICS [place], [place] [address] [facility] [address] [address] [place], [place] [address] (Wo rk) Social History [...] Date/Time Associated Diagnosis Comme nts INR Routine 03/04/2007 2:10 PM Results f or this CDT procedure are i n the results section . documented in this encounter Results (ABNORMAL) INR (03/04/2007 2:10 PM CDT) P athologist Signature INR 3.16 (H) 0.86 - 1.14 MISYS Specimen Anatomical Collection Method Collection Time Receive d Time (Source) Location / / Volume Laterality 03/04/2007 2:10 PM 7 2:07 CDT PM CDT Theodore Palmer MD LAB - BLOOD ORDERABLES Performing Organization Address City/State/ZIP Code Phon e Number MISYS documented in this encounter Visit Diagnoses Not on filedocumented in this encounter Care Teams Counter Caser Relationship Specialty Start Date End Date Ranjith Hughes MD PCP - General 07/11/02 12/17/13 [address] [place] [address] documented as of this encounter
--- OUTSIDE RECORDS SUMMARY | 2022-07-19 23:01 | XMS_ITS | Encounter Summary ---
:1940 Author Organization [facility] Address [address] [place] [address] Care Team Providers Name Role Phone Ranjith Hughes MD Primary Care Provider Encounter Details Date Type Department Care Team Description 04/09/2009 Results Only [facility] Chris Stanley [facility] Results [facility]ENCY [facility] [place] [address] [place] [address] (Wo rk) Social History Tobacco Use Types Packs/Day Years Used Date Smoking Tobacco: Never Alcohol Use Standard Drinks/Week Comments No 0 (1 standard drink = 0.6 oz pure alcoho l) Sex Assigned at Date Recorded Not on file documented as of this encounter Plan of Treatment Not on filedocumented as of this encounter Procedures Procedure Name Priority Date/Time Associated Diagnosis Comme [facility] RT X-RAY ANKLE Routine 04/09/2009 12:12 AM Re sults for this 3+ VW CDT procedure are i n the results section. documented in this encounter Results RT X-RAY ANKLE 3+ VW (04/09/2009 12:12 AM CDT) Anatomical Region Laterality Modality Other Specimen (Source) Anatomical Collection Method Collection Time Re ceived Time Location / / Volume Laterality 04/09/2009 12:12 AM CDT Impressions 04/09/2009 8:49 AM CDT ANKLE G/E 3 VIEW RIGHT* Apr 09, 2009 12: 12:00 AM HISTORY: Ankle pain. COMPARISON: None FINDINGS: Degenerative change without ev idence of fracture. IMPRESSION: No fracture. Chris [facility] documented in this encounter Visit Diagnoses Not on filedocumented in this encounter Care Teams Supervisor Counseling And Guidance Relationship Specialty Start Date End Date Ranjith Hughes MD PCP - General 07/11/02 12/17/13 [address] [place] [address] documented as of this encounter
--- OUTSIDE RECORDS SUMMARY | 2022-07-19 23:01 | XMS_ITS | Encounter Summary ---
:1940 Author Organization [place] Address [address] [place] [address] Care Team Providers Name Role Phone Ranjith Hughes MD Primary Care Provider Encounter Details Date Type Department Care Team Description 03/08/2009 Operative Report [facility] Harvey Garrett (Agricultural And Forestry Supervisor) [facility] MD Juan Daniel Results [facility] [address] [place] [address] (Wo rk) Social History Tobacco Use Types Packs/Day Years Used Date Smoking Tobacco: Never Alcohol Use Standard Drinks/Week Comments No 0 (1 standard drink = 0.6 oz pure alcoho l) Sex Assigned at Date Recorded Not on file documented as of this encounter Progress Notes Harvey Garrett - 03/25/2009 9:51 PM CDT FINAL PREOPERATIVE DIAGNOSES: 1. Stage II posterior tibial tendon dysfunction, left. 2. Hallux valgus, left. POSTOPERATIVE DIAGNOSES: 1. Stage II posterior tibial tendon dysfunction, left. 2. Hallux valgus, left. PROCEDURE: 1. Gastroc recession, left. 2. Lateral column lengthening with iliac crest allograft, left. 3. Flexor digitorum profundus transfer to navicular, left foot. 4. Excision os navicularis with advancement of posterior tibial tendon, left foot. 5. Chevron osteotomy, left great toe (hallux valgus correction). IMPLANTS: 2.4 mm plate (modular foot), 2.4 mm screws, 8 mm DePuy staple. SURGEON: Harvey Garrett MD VOCATIONAL DIRECTOR: MARY Wyman ANESTHESIA: Regional plus general. ESTIMATED BLOOD LOSS: 50 cc. DRAINS: No drains. SPECIMENS: No specimens. COMPLICATIONS: Fracture first metatarsal head, fixed with internal fixation. INDICATIONS FOR PROCEDURE: Brady Escobar is a 68-year-old woman who presented with both a symptomatic posterior tibial tendon dysfunction and a left hallux valgus. She felt she had failed nonoperative management for both problems and wished to proceed with surgical intervention. Risks and benefitswere discussed. PROCEDURE IN DETAIL AND FINDINGS: The patient underwent a regional anesthetic in the preoperative area and was brought to the operating room where general anesthetic was administered and airway secured without difficulty. Preoperative antibiotics were given. The left leg was prepped and draped in sterile fashion. We initially did not apply a tourniquet, to allow the gastroc recession. A sterile tourniquet was placed after completion of that portion of the case. I began by making a straight medial incision over the gastrocnemius junction. This was carried downthrough the fascial layer and the gastric tendon was fully isolated with 2 malleables, protecting the underlying soleus and the overlying neurovascular bundle. The lateral border of the gastroc was identified visually. I then released the gastroc tendon from medial to lateral under direct visualization on the undersurface of the muscle. The tendon itself was released, but the overlying gastroc musclebelly was intact. I was then able to dorsiflex the ankle 15-20 degrees with the knee extended. The wound was irrigated with sterile saline and closed in layers. At this point, a sterile tourniquet was applied to the thigh. The limb was elevated for exsanguination and the tourniquet inflated. We then turned our attention to the lateral column. A straight incision was made from the tip of the fibula along the path of the fourth metatarsal extending to the anterior process of the calcaneus. This was carried down, avoiding the neurovascular structures. The peroneal tendons were identified, released and mobilized. We used a C-arm to identify the level and angleof the cut. The cut was then made with an oscillating saw. I opened this with an Mita and viewed thecorrection under direct visualization. I then used a femoral head allograft to cut a large block to fit the opening wedge osteotomy. This was impacted into place. Excellent fit. The distal fragment of the calcaneus was brought down to the appropriate level, and this was ensured by x-ray. I then secured this with a 2.4 mm plate and 2 screws. AP, lateral and oblique views were taken and reviewed, and the osteotomy appeared to be in good position and there was good talar head coverage. After this x-ray evaluation, I did not feel that a medializing calcaneal osteotomy was necessary. Therefore, I turned my attention to the medial side of the foot. A curvilinear incision was made over the distal aspect of the posterior tibial tendon extending from the tip of the fibula to the navicular insertion. Hemostasis was obtained as we carried the dissection to the deep posterior tibial tendonsheath. The sheath was split and the insertion of the tendon identified. There was a large os navicularis. This was removed. The tendon itself had good excursion and therefore was saved for later implantation. With the posterior tibial tendon dysfunction identified preoperatively, however, I felt thatreinforcement with an FDP transfer was still an appropriate step. Therefore, the flexor digitorum profundus tendon was identified through its sheath in the plantar aspect of the wound. This was released as distally as possible. I placed a punch for the Arthrex Bio-Corkscrew into the medial navicular. Position was confirmed with C-arm. I then placed a Bio-Corkscrew with excellent purchase. I secured the posterior tibial tendon and the flexor digitorum profundus tendon, both back to the medial/plantarnavicular. This was done with 2 absorbable sutures. I then reinforced the repair by sewing the surrounding tissue border of the posterior tibial tendon with a PDS suture. With this completed, I turned my attention to the great toe. A medial incision was made along the first MTP joint. The dorsomedial cutaneous nerve was protected. The capsule was exposed. An inverted L capsulotomy was performed. The excess tissue was debrided. The medial eminence was resected. It was quite large in this case. A long plantar limb chevron osteotomy was performed. I mobilized the capital fragment laterally. As I held the capital fragment for fixation, it became clear that there was a split extending plantarly from the vertical limb of the osteotomy. It was an incomplete split. I was, therefore, able to place 2 screws through the chevron osteotomy correction, 1 capturing the proximal capital fragment and 1 capturing the distal capital fragment.Then, for reinforcement, placed an 8 mm DePuy staple between the 2 fragments of the capital section.The excess medial bone was trimmed from the proximal fragment. The fibular sesamoid ligament and lateral capsule were released in a transarticular approach with a 15 blade scalpel. This allowed 20 degrees of passive varus. The medial capsule was then repaired, completing the correction. AP and lateralx-rays were taken and reviewed. The toe had good position. The wounds were all irrigated with sterile saline and closed in layers. Adaptic, sterile dressings and a well-padded short-leg cast were applied. This had a toe sling as well. The patient tolerated the procedure well and there were no complications. All sponge and needle counts were correct. PLAN: She will be nonweightbearing for 6-8 weeks, pending bony healing. She will follow up in 2 weeks for cast off, wound check and sutures out. She will go back into a short leg nonweightbearing castand can use a large bunion wrap over the cast to hold her toe in neutral. She can have this off for gentle range of motion after week 4. She will then follow up at 6 weeks for cast off, AP, lateral andoblique views of the left foot and a reexamination. Electronically signed on 03/25/2009 21:50 by HARVEY GARRETT MD [place]: [id number] Name: BRADY ESCOBAR Account: [id number] : 1940 Procedure Date: 03/08/2009 Document: [id number] documented in this encounter Plan of Treatment Not on filedocumented as of this encounter Visit Diagnoses Not on filedocumented in this encounter Care Teams Pegger Relationship Specialty Start Date End Date Ranjith Hughes MD PCP - General 07/11/02 12/17/13 [address] [place] [address] documented as of this encounter
--- OUTSIDE RECORDS SUMMARY | 2022-07-19 23:02 | XMS_ITS | Encounter Summary ---
:1940 Author Organization [place] Address [facility] [place] [address] Care Team Providers Name Role Phone Ranjith Hughes MD Primary Care Provider Encounter Details Date Type Department Care Team Description 03/11/2006 Orders Only [facility] Ranjith Hughes, DIAGNO SIS NOT YET [facility] [place] DEFINED (Primary Dx) [id number] [place] [id number] [place] [id number] [phone] Social History Tobacco Use Types Packs/Day Years Used Date Smoking Tobacco: Never Alcohol Use Standard Drinks/Week Comments No 0 (1 standard drink = 0.6 oz pure alcoho l) Sex Assigned at Date Recorded Not on file documented as of this encounter Plan of Treatment Not on filedocumented as of this encounter Procedures Procedure Name Priority Date/Time Associated Diagnosis Comme nts ABSTRACT LABCARE Routine 03/11/2006 DIAGNOSIS NOT YET REPORT DEFINED HCL POTASSIUM Routine 03/11/2006 DIAGNOSIS NOT YET Results f or this DEFINED procedure are i n the results section . HCL GLUCOSE Routine 03/11/2006 DIAGNOSIS NOT YET Results fo r this DEFINED procedure are i n the results section . HCL CREATININE Routine 03/11/2006 DIAGNOSIS NOT YET Results for this DEFINED procedure are i n the results section . documented in this encounter Results CREATININE [[id number]] (03/11/2006) athologist Signature Creatinine 0.90 mg/dL [facility] Ranjith Hughes MD LABORATORY Performing Organization Address City/[facility]/ZIP Code Phon e Number [facility] POTASSIUM [[phone]] (03/11/2006) P athologist Signature Potassium 4.6 mmol/L [facility] Ranjith Hughes MD LABORATORY Performing Organization Address [facility] Phon e Number M[facility]YS GLUCOSE [[phone]] (03/11/2006) P athologist Signature Glucose 94 mg/dL [facility] Ranjith Hughes MD LABORATORY Performing Organization Address City/[facility]/ZIP [facility] Phon e Number [facility] ABSTRACT LABCARE REPORT (03/11/2006) Specimen (Source) Anatomical Location Collection Method / Collectio n Time Received Time / Laterality Volume 03/11/2006 Narrative This result has an attachment that is no t available. Ranjith Hughes MD LABORATORY Performing Organization Address [facility] Phon e Number MISYS documented in this encounter Visit Diagnoses Diagnosis DIAGNOSIS NOT YET DEFINED - Primary documented in this encounter Care Teams Cable Dispatcher Relationship Specialty Start Date End Date Ranjith Hughes MD PCP - General 07/11/02 12/17/13 [address] [place] [address] documented as of this encounter
--- OUTSIDE RECORDS SUMMARY | 2022-07-19 23:02 | XMS_ITS | Encounter Summary ---
:1940 Author Organization [place] Address [address] [place] [address] Care Team Providers Name Role Phone Ranjith Hughes MD Primary Care Provider Encounter Details Date Type Department Care Team Description 02/19/2007 Historic Notes INTERFACED REPORT Interface, Transcript on, Social History Tobacco Use Types Packs/Day Years Used Date Smoking Tobacco: Never Alcohol Use Standard Drinks/Week Comments No 0 (1 standard drink = 0.6 oz pure alcoho l) Sex Assigned at Date Recorded Not on file documented as of this encounter Progress Notes Interface, Alumina Refinery Operator - 12/19/2010 3:28 PM CDT Notification - Notified Person:: MD - Notified Persons Name: Dr. demarco - Notification Time:: 19-Feb-2007 08:18 - Notification Interaction:: Paged - Was a message left?: No - Comments:: pt would like to take Darvocet for pain, no orders for this medication. Signatures Nadia Hancock (RN) Authored: Notification Interface, Alumina Refinery Operator - 12/19/2010 3:28 PM CDT General Information General Information - Type of Note Initial Evaluation - Patient Profile Review Yes - Onset Date 18-Feb-07 - Referring Physician Dr. Theodore Palmer - Patient/Family Goals patient wants to return to home - History of Present Problem patient presents with increased knee pain - Treatment Diagnosis L TKA - Precautions/Limitations No known precautions/limitations - Weight Bearing Status Weight bearing as tolerated; L LE Previous Level of Function Previous Level of Function - Ambulation/Mobility Skills Independent - Transfer Skills Independent - ADL Skills Independent Cognitive Status Cognitive Status - Level of Consciousness Alert - Follows Commands and 100% of the time Answers Questions - Personal Safety/Judgement Intact - Sequencing Intact Pain Presence of pain - Do you have pain now Yes (See Assessment and Intervention Flowsheet) Range of Motion ROM - ROM Deficits were identified as indicated in ROM assessment Range of Motion (Assessment) Comments: PT: L LE ROM limited secondary to pain and TKA Functional Performance Bed Mobility - Scooting/Bridging: Stand by assist, 1 person assist - Supine to sit: Minimal assist, 1 person assist Transfer - Transfer: Minimal assist, 1 person assist - Stand to Sit: Minimal assist, 1 person assist - Bed to Chair: Minimal assist, 1 person assist Gait - Gait: Minimal assist, 1 person assist, 6 feet with grain picker walker - Side Stepping: Minimal assist, 1 person assist, 4 feet with grain picker walker - Backward Stepping: Minimal assist, 1 person assist, 4 feet with grain picker walker Sensation Sensation - Sensation Sensation was appropriate in all areas Muscle Tone Tone - Tone Tone was appropriate in all areas Treatment Plan/Modalities Treatments - Treatments Gait Training, Transfer Training, Bed Mobility Training, Strengthening, Stretching, Range of Motion, Neuromuscular Reeducation, Balance/Coordinating Training Techniques Prognosis/Impression Impression - Skilled Criteria for Yes Therapy Intervention Met - PT Practice Pattern Musculoskeletal - Assessment Patient presents with difficulty with ambulation and balance secondary to L TKA. Patient would benefit from PT to address these issues during hospital stay. - Rehabilitation Potential Good, to achieve stated therapy goals - Predicted Duration of 3 days Therapy - Predicted Frequency of 2 times/day Therapy - Discharge Destination Home with outpatient services - Anticipated Equipment at unsure at this time Discharge - Risks and Benefits of Yes Treatment have been explained. - Patient, family and/or Yes staff in agreement with Plan of Care Roselyn Clayton (PT) Authored: General Information, Previous Level of Function, Cognitive Status, Pain, Range of Motion, Range of Motion (Assessment), Functional Performance, Sensation, Muscle Tone, Treatment Plan/Modalities, Prognosis/Impression Interface, Alumina Refinery Operator - 12/19/2010 3:27 PM CDT SWS D: Received MD order to see reagrding discharge planning. Chart reviewed, noted PT assessment and anticipated eturn to home upon discharge. At this point, no discharge needs identified, family support available on discharge. P: SWS to follow, available as needed should discharge needs arise. [Signature] Author:Amena Palmer (VICE PRESIDENT SUPPLY CHAIN) [Signed 19-Feb-2007 11:33] documented in this encounter Plan of Treatment Not on filedocumented as of this encounter Visit Diagnoses Not on filedocumented in this encounter Care Teams Commercial Sewing Instructor Relationship Specialty Start Date End Date Ranjith Hughes MD PCP - General 07/11/02 12/17/13 [address] [place] [address] documented as of this encounter
--- OUTSIDE RECORDS SUMMARY | 2022-07-19 23:02 | XMS_ITS | Encounter Summary ---
:1940 Author Organization [place] Address [address] [place] [address] Care Team Providers Name Role Phone Ranjith Hughes MD Primary Care Provider Reason for Visit Reason Comments Anticoagulation Encounter Details Date Type Department Care Team Description 02/12/2006 Office Visit [facility] [employer] [address] ANTICOAG USE (Primary Dx) [address] [place] [address] Social History Tobacco Use Types Packs/Day Years Used Date Smoking Tobacco: Never Alcohol Use Standard Drinks/Week Comments No 0 (1 standard drink = 0.6 oz pure alcoho l) Sex Assigned at Date Recorded Not on file documented as of this encounter Progress Notes Shahnaz Chambers - 02/12/2006 5:47 PM CDT ANTICOAGULATION FOLLOW-UP CLINIC VISIT Patient Name: Lee Ann Herndon Date: 02/12/2006 SUBJECTIVE: Bleeding Signs/Symptoms: None Thromboembolic Signs/Symptoms: None Medication Changes: NO Dietary Changes: NO Bacterial/Viral Infection: NO Missed Coumadin Doses: None Other Concerns: NO ASSESSMENT/PLAN: See: ANTICOAGULATION QIC flow sheet. CR ANTICOAGULATION CLINIC documented in this encounter Plan of Treatment Not on filedocumented as of this encounter Procedures Procedure Name Priority Date/Time Associated Diagnosis Comme nts HCL INR POCT Routine 02/12/2006 [facility] Results for this Anticoag Use procedure are i n the results section . documented in this encounter Results INR POINT OF CARE (02/12/2006) P athologist Signature INR Point of 3.7 [facility] Ranjith Hughes MD LABORATORY Performing Organization Address City/State/ZIP Code Phon e Number [facility] documented in this encounter Visit Diagnoses Diagnosis buttermaker (current) use of anticoagulant s - Primary Long-term (current) use of anticoagulant s documented in this encounter Care Teams Business Services Associate Relationship Specialty Start Date End Date Ranjith Hughes MD PCP - General 07/11/02 3 [address] [place] [address] documented as of this encounter
--- OUTSIDE RECORDS SUMMARY | 2022-07-19 23:02 | XMS_ITS | Encounter Summary ---
:1940 Author Organization [place] Address [address] [facility] [place] [address] Care Team Providers Name Role Phone Ranjith Hughes MD Primary Care Provider Reason for Visit Reason Onset Date Comments Medication Request 08/27/2006 Pt given samples of celebrex, would like rx faxed in Encounter Details Date Type Department Care Team Description 08/27/2006 Telephone [facility] Ranjith Hughes, Medica tion Request (Pt Clinic [place] [address] celebrex, would like rx [place], [place] faxed i n) [phone] Social History Tobacco Use Types Packs/Day Years Used Date Smoking Tobacco: Never Alcohol Use Standard Drinks/Week Comments No 0 (1 standard drink = 0.6 oz pure alcoho l) Sex Assigned at Date Recorded Not on file documented as of this encounter Miscellaneous Notes Telephone Encounter - Sofia Pitts - 08/27/2006 3:19 PM CST Pt is calling, states she was given samples of celebrex, and would like to get an rx faxed in. Last ov: 02/05/06 Reason: F/u knee replacement Provider: RTC: 1 month Hellen Morse RTimothy UMER EDUCATION SPECIALIST documented in this encounter Plan of Treatment Not on filedocumented as of this encounter Visit Diagnoses Not on filedocumented in this encounter Care Teams Quartz Miner Blasting Relationship Specialty Start Date End Date Ranjith Hughes MD PCP - General 07/11/02 12/17/13 [address] [place] [address] documented as of this encounter
--- OUTSIDE RECORDS SUMMARY | 2022-07-19 23:02 | XMS_ITS | Encounter Summary ---
:1940 Author Organization [place] Address [address] [place] [address] Care Team Providers Name Role Phone Ranjith Hughes MD Primary Care Provider Encounter Details Date Type Department Care Team Description 03/11/2006 Results Only [facility] Rogelio Huber MD Hospital Results EMERGENCY [facility]YSI JENNIFER GRIDER [address] [facility] [address] [place] [address] (Wo rk) Social History Tobacco Use Types Packs/Day Years Used Date Smoking Tobacco: Never Alcohol Use Standard Drinks/Week Comments No 0 (1 standard drink = 0.6 oz pure alcoho l) Sex Assigned at Date Recorded Not on file documented as of this encounter Plan of Treatment Not on filedocumented as of this encounter Procedures Procedure Name Priority Date/Time Associated Comments Diagnosis HC DUPLEX EXTREMITY Routine 03/11/2006 3:08 AM Re sults for this VENOUS, LIMITED CDT procedure ar e in UNILATERAL the results section. HC X-RAY KNEE 1-2 Routine 03/11/2006 3:06 AM Resu lts for this VIEWS CDT procedure are i n the results section. documented in this encounter Results DUPLEX EXTREM VENOUS,UNI OR LTD (03/11/2006 3:08 AM CDT) Anatomical Region Laterality Modality Other Specimen (Source) Anatomical Collection Method Collection Time Re ceived Time Location / / Volume Laterality 03/11/2006 3:08 AM CDT Impressions 03/11/2006 4:30 PM CDT RIGHT LOWER EXTREMITY VENOUS ULTRASOUND WITH DOPPLER - 03/11/06 CLINICAL INFORMATION: ??Pain and edema. COMPARISON: ??None. FINDINGS: ??No evidence of thrombus with in the right common femoral, femoral, popliteal, posterior tibial, or greater saphenous veins. ?? IMPRESSION: 1. ??No evidence of thrombus within the major veins of the left lower extremity. Preliminary interpretation was conveyed to the clinical service by Dr. Lubin on 03/11/06 at 0328 hours. Rogelio Huber MD SPECIAL IMAGING STUDIES X-RAY KNEE 1 OR 2 VIEW (03/11/2006 3:06 AM CDT) Anatomical Region Laterality Modality Other Specimen (Source) Anatomical Collection Method Collection Time Re ceived Time Location / / Volume Laterality 03/11/2006 3:06 AM CDT Impressions 03/11/2006 5:57 PM CDT TWO VIEWS OF RIGHT KNEE - 03/11/06, 0306 HOURS CLINICAL INFORMATION: ??Pain. COMPARISON: ??03/05/06. IMPRESSION: 1. ??Prior right total knee arthroplasty again noted. 2. ??No evidence of hardware failure or loosening. 3. ??No visualized fracture or malalignm ent in the right knee. Rogelio Huber MD GENERAL IMAGING documented in this encounter Visit Diagnoses Not on filedocumented in this encounter Care Teams Alignment Mechanic Relationship Specialty Start Date End Date Ranjith Hughes MD PCP - General 07/11/02 12/17/13 [address] [place] [address] documented as of this encounter
--- OUTSIDE RECORDS SUMMARY | 2022-07-19 23:02 | XMS_ITS | Encounter Summary ---
:1940 Author Organization [facility] Address [address] [place] [address] Care Team Providers Name Role Phone Ranjith Hughes MD Primary Care Provider Encounter Details Date Type Department Care Team Description 03/11/2006 Historic Results INTERFACED REPORT Shubham Huber MD [facility] [address] [facility] [address] [place] [address] (Wo rk) Social History Tobacco Use Types [...] Date/Time Associated Comments Diagnosis BLOOD CULTURE STAT 03/11/2006 3:25 AM Results for this CDT procedure are i n the results section. HEMOGRAM DIFFERENTIAL STAT 03/11/2006 2:15 AM Results for this AND PLATELET CDT procedure are i n the results section. ERYTHROCYTE STAT 03/11/2006 2:15 AM Results f or this SEDIMENTATION RATE CDT procedure are in AUTO the results section. CRP INFLAMMATION STAT 03/11/2006 2:15 AM Resul ts for this CDT procedure are i n the results section. BLOOD CULTURE STAT 03/11/2006 2:15 AM Results for this CDT procedure are i n the results section. BASIC METABOLIC PANEL STAT 03/11/2006 2:15 AM Results for this CDT procedure are i n the results section. documented in this encounter Results Blood culture (03/11/2006 3:25 AM CDT) Component Value Ref Test Analysis Performed At [facility] [employer] Range Method Time Signature Specimen Blood MISYS Description Culture Micro Cultured on the MISYS 1st day of incubation: Staphylococcus epidermidis Comment: Critical Value called to and read back kong Appiah @ 0368 on 03.12.06 and faxed to [facility] ER ([phone]) / Culture in progress Special Requests Right Arm MISYS Micro Report Status FINAL [id number] MISYS Specimen Anatomical Collection Method Collection Time Receive d Time (Source) Location / / Volume Laterality 03/11/2006 3:25 AM 6 2:04 CDT AM CDT Organism Antibiotic Method Susceptibility Cultured on the 1st day of incubation: Cefazolin <=4 Susceptible staphylococcus epidermidis (kalia) Cultured on the 1st day of incubation: Clindamycin Resistant staphylococcus epidermidis (kalia) Comment: This Staph demonstrated delta cible clindamycin resistance in vitro and may develop clindamycin resista nce during therapy. Cultured on the 1st day of incubation: Erythromycin >=8 Resistant staphylococcus epidermidis (kalia) Cultured on the 1st day of incubation: Gentamicin <=0.5 Susceptible staphylococcus epidermidis (kalia) Cultured on the 1st day of incubation: Levofloxacin <=0.12 Susceptible staphylococcus epidermidis (kalia) Cultured on the 1st day of incubation: Oxacillin <=0.25 Susceptible staphylococcus epidermidis (kalia) Cultured on the 1st day of incubation: Penicillin 0.25 Resistant staphylococcus epidermidis (kalia) Cultured on the 1st day of incubation: Vancomycin 2 Susceptible staphylococcus epidermidis (kalia) Rogelio Huber MD LAB - MICRO GENERAL ORDERABL ES Performing Organization Address City/State/ZIP Code Phon e Number MISYS (ABNORMAL) Hemogram differential and platelet (03/11/2006 2:15 AM CDT) [facility] [employer] Method Time Signature MCV 95 78 - 100 MISYS fl MCH 30.8 26.5 - MISYS 33.0 pg MCHC 32.3 32.0 - MISYS 36.0 g/dL RDW 12.5 10.0 - MISYS 15.0 % WBC 6.3 4.0 - MISYS 11.0 10e9/L RBC Count 3.86 3.8 - 5.2 MISYS 10e12/L Hemoglobin 11.9 11.7 - MISYS 15.7 g/dL Hematocrit 36.8 35.0 - MISYS 47.0 % % Neutrophils 60 40 - 75 % MISYS % Lymphocytes 29 20 - 48 % MISYS % Monocytes 6 0 - 12 % MISYS % Eosinophils 5 0 - 6 % MISYS % Basophils 0 0 - 2 % MISYS Platelet Count 148 (L) 150 - 450 MISYS 10e9/L Absolute 3.7 1.6 - 8.3 MISYS Neutrophil 10e9/L Absolute 1.8 0.8 - 5.3 MISYS Lymphocytes 10e9/L Absolute 0.4 0.0 - 1.3 MISYS Monocytes 10e9/L Absolute 0.3 0.0 - 0.7 MISYS Eosinophils 10e9/L Absolute 0.0 0.0 - 0.2 MISYS Basophils 10e9/L Diff Method Automated MISYS Method Specimen Anatomical Collection Method Collection Time Receive d Time (Source) Location / / Volume Laterality 03/11/2006 2:15 AM 6 2:04 CDT AM CDT Rogelio Huber MD LAB - BLOOD ORDERABLES Performing Organization Address City/State/ZIP Code Phon e Number MISYS (ABNORMAL) Basic metabolic panel (03/11/2006 2:15 AM CDT) P athologist Signature Sodium 141 133 - 144 MISYS mmol/L Comment: Results confirmed by repeat yanira t Potassium 4.6 3.4 - 5.3 mmol/L MISYS Chloride 109 94 - 109 mmol/L MISYS Carbon Dioxide 27 20 - 32 mmol/L MISYS Glucose 94 60 - 110 mg/dL MISYS Urea Nitrogen 20 7 - 30 mg/dL MISYS Creatinine 0.90 0.60 - 1.30 mg/dL MISYS GFR Estimate 67 >60 mL/min/1.7m2 MISYS GFR Estimate If Black 81 >60 mL/min/1.7m2 M ISYS Calcium 10.6 (H) 8.5 - 10.4 mg/dL MISYS Anion Gap 5 (L) 6 - 17 mmol/L MISYS Specimen Anatomical Collection Method Collection Time Receive d Time (Source) Location / / Volume Laterality 03/11/2006 2:15 AM 6 2:04 CDT AM CDT Rogelio Huber MD LAB - BLOOD ORDERABLES Performing Organization Address City/[facility]/ZIP Code Phon e Number MISYS CRP inflammation (03/11/2006 2:15 AM CDT) athologist Signature CRP Inflammation 7.7 0.0 - 8.0 MISYS mg/L Specimen Anatomical Collection Method Collection Time Receive d Time (Source) Location / / Volume Laterality 03/11/2006 2:15 AM 6 3:15 CDT AM CDT Rogelio Huber MD LAB - BLOOD ORDERABLES Performing Organization Address City/[facility] Phon e Number MISYS Erythrocyte sedimentation rate auto (03/11/2006 2:15 AM CDT) athologist Signature Sed Rate 11 0 - 30 mm/h MISYS Specimen Anatomical Collection Method Collection Time Receive d Time (Source) Location / / Volume Laterality 03/11/2006 2:15 AM 6 3:17 CDT AM CDT Rogelio Huber MD LAB - BLOOD ORDERABLES Performing Organization Address [facility] Phon e Number MISYS Blood culture (03/11/2006 2:15 AM CDT) [facility] gist Method Time Signature Specimen Left Arm MISYS Description Culture Micro No growth MISYS after 6 days Micro Report FINAL MISYS Status [id number] Specimen Anatomical Collection Method Collection Time Receive d Time (Source) Location / / Volume Laterality 03/11/2006 2:15 AM 6 2:04 CDT AM CDT Rogelio Huber MD LAB - MICRO GENERAL ORDERABL ES Performing Organization Address [facility] Phon e Number MISYS documented in this encounter Visit Diagnoses Not on filedocumented in this encounter Care Teams Painting Technician Relationship Specialty Start Date End Date Ranjith Hughes MD PCP - General 07/11/02 12/17/13 [address] [place] [address] documented as of this encounter
--- OUTSIDE RECORDS SUMMARY | 2022-07-19 23:02 | XMS_ITS | Encounter Summary ---
:1940 Author Organization [facility] Address [address] [place] [address] Care Team Providers Name Role Phone Ranjith Hughes MD Primary Care Provider Reason for Visit Reason Onset Date Comments PSYCHOLOGICAL EXAMINER - INPATIENT 01/31/2006 [facility] - RTK A Encounter Details Date Type Department Care Team Description 02/01/2006 Telephone [facility] Sandra Palmer PSYCHOLOGICAL EXAMINER - ASSOCIATES - CARE [facility] PHYSICIAN INPATIENT ([facility] - MANAGEMENT DEPT [facility] RTKA) [address] [place] [address] [place] [address] [phone] Social History Tobacco Use Types Packs/Day Years Used Date Smoking Tobacco: Never Alcohol Use Standard Drinks/Week Comments No 0 (1 standard drink = 0.6 oz pure alcoho l) Sex Assigned at Date Recorded Not on file documented as of this encounter Miscellaneous Notes Telephone Encounter - Caden Palmer - 02/05/2006 10:33 AM CDT PASS, ERV, EPIC and FCIS reviewed. PASS indicates member discharged on 02/02/06. FRANK Chew CM FPA Telephone Encounter - So Ordaz - 02/02/2006 7:49 AM CDT PASS, ERV, FCIS, and Epic reviewed. So Ordaz RN Case Manager FPA Telephone Encounter - So Ordaz - 02/01/2006 12:35 PM CDT This FPA [facility] member was admitted to [facility] 01/31/06, MS 2 ([id number]), DX: DJD, RTKA. PASS, ERV, FCIS, and Epic reviewed. LVM for Amenarosy PalmerCARMEN MS 2 ([phone]) regarding discharge planning - that this member should stay within the [facility] to optimize continuity of care and coordination of benefits. Also provided in this VM was my contact information and request for a return call with any questions or concerns and discharge plans (this member is CM's by Caden Palmer RN CM out of office today). So Ordaz RN Case Manager FPA documented in this encounter Plan of Treatment Not on filedocumented as of this encounter Visit Diagnoses Not on filedocumented in this encounter Care Teams Training Manager Relationship Specialty Start Date End Date Ranjith Hughes MD PCP - General 07/11/02 12/17/13 [address] [place] [address] documented as of this encounter
--- OUTSIDE RECORDS SUMMARY | 2022-07-19 23:02 | XMS_ITS | Encounter Summary ---
:1940 Author Organization [facility] Address [address] [place] [address]. [place] [address] Care Team Providers Name Role Phone Ranjith Hughes MD Primary Care Provider Encounter Details Date Type Department Care Team Description 01/31/2006 Operative Report [facility] Sarah López, (Weaving Supervisor) Hospitalists [address] [place], [place] [facility] [address] [phone] [address] [place] [address] Social History Tobacco Use Types Packs/Day Years Used Date Smoking Tobacco: Never Alcohol Use Standard Drinks/Week Comments No 0 (1 standard drink = 0.6 oz pure alcoho l) Sex Assigned at Date Recorded Not on file documented as of this encounter Progress Notes Sarah López - 01/31/2006 12:07 PM CDT PRELIMINARY PREOPERATIVE DIAGNOSIS: Severe right knee degenerative joint disease. POSTOPERATIVE DIAGNOSIS: Severe right knee degenerative joint disease. PROCEDURE: Right total knee arthroplasty. COMPONENTS USED: Spencer and Psencer rotating platform, size 3 tibia, size 4 femur and 35 mm patellar button. SURGEON: Sarah López MD TAILOR WOMEN'S GARMENT ALTERATION: MARY Benson. ANESTHESIA: General and femoral block. ESTIMATED BLOOD LOSS: 100 ml. DRAINS: x1. COMPLICATIONS: None. INDICATIONS: Brady is a 65-year-old female who presented with severe right knee degenerative changes. She had pain and a flexion contracture and had done minimal conservative therapy, but based on her pain at night, she requested total knee arthroplasty. We discussed risks, benefits and alternatives preoperatively. She understands and presented for the above procedure. DESCRIPTION OF PROCEDURE: Brady was brought to the operating room, placed supine on the operating room table. Spinal anesthetic was delivered distal as well as a femoral nerve block in the PACU. She was positioned, prepped and draped in a usual sterile fashion for total knee. Standard midline incision anterior to the knee cap was taken, sharp dissection down to the kneecap. Dissection both mediallyand laterally to the patellar tendon was identified. Paramedial arthrotomy was then performed, identifying fairly severe gydl-wq-ohyl arthritis within her joint. We used osteotomes and rongeurs to remove the arthritic bone from around the condyles. We did a small medial release, staying within 1 cm ofthe joint line, removing the capsule. With that, we were able then to bring her back into more of a valgus alignment. With that completed, the fat pad was removed, the knee cap was everted. The knee was flexed up. Again, osteophytes were removed from around the femur. I then drilled for the intramedullary guide that was placed, resecting 10 mm off the end of the femur. I then sized her to a 4 femur and pinned it for external rotation. A cutting block was then placed. Standard cuts and chamfers were then placed. I opted to do the cruciate substituting, so I then placed a size 4 block in appropriate p osition and cut out the middle. With that completed, I then removed some of the osteophytes from posteriorly, removed the rest of meniscus tissue and then did a slight posterior release based on her knee flexion contracture using the Bovie and Maya to remove the tissues from the back side of the femur. Once the femur was completed, I then trialed and was happy with the overall position. I then turnedmy attention to the tibia, where the extramedullary tibial guide was placed, measuring 4 off the medial side, approximately 8 off the lateral side. A standard cut was made and sized to a 3. I then marked this in place as a trial, making sure the alignment was in line with the femur. I then pinned, used the standard cutting guides on the tibia, initially reaming and then using the flange. I then trialed with a 10 mm poly, and this gave me excellent stability in the anterior, posterior, varus and valgus stress. Once the tibia was finished, I then removed the osteophytes from the patella, sized to a 35, removed approximately 9 mm of bone off the patella. The patellar was basically 23 mm in thickness.This was cut, and then the template was used to drill holes, and I again trialed all the components in the knee, got an excellent stable knee in both flexion and extension and with varus and valgus stressing. With that completed, the trial components removed. The bones were irrigated and cleaned down to the white surface. The components were then cemented in in appropriate position. With that completed, we then trialed again with a 10 mm. This gave me excellent stability in flexion, extension and varus and valgus stress. The final component was placed after a thorough irrigation and removal of someof the cement that had hardened. Once that was completed, again I trial with the final component in.I was very happy with its position. With that completed, final irrigation, drain was placed, closurein standard fashion. She was brought to the PACU in stable condition and started on CPM. X-rays pending at the time of dictation. She will be given 24 hours of IV antibiotics, started on Coumadin for DVT prophylaxis. SARAH LÓPEZ MD MT: [id number] Name: BRADY ESCOBAR MRN: [id number] Account: [id number] : 1940 Procedure Date: 01/31/2006 Document: [id number] documented in this encounter Plan of Treatment Not on filedocumented as of this encounter Visit Diagnoses Not on filedocumented in this encounter Care Teams Registered Dental Assistant Relationship Specialty Start Date End Date Ranjith Hughes MD PCP - General 07/11/02 12/17/13 [address] [place] [address] documented as of this encounter
--- OUTSIDE RECORDS SUMMARY | 2022-07-19 23:02 | XMS_ITS | Encounter Summary ---
:1940 Author Organization [facility] Address [address] [place] [address] Care Team Providers Name Role Phone Ranjith Hughes MD Primary Care Provider Reason for Referral - Closed Specialty Diagnoses / Procedures Referred By Contact Refer red To Contact Diagnoses Pain in joint, lower [place] R[place] [id number] [place] [phone] Referral ID Status Reason Start Date Expiration Date Visits Requ ested Visits Authorized [id number] Closed 01/23/2006 09/30/2011 1 1 Reason for Visit Reason Comments Knee Pain right knee pain Encounter Details Date Type Department Care Team Description 01/23/2006 Office Visit [facility] Ranjith Hughes, JOINT PAIN-LOWER LEG [facility] [place] MD (Primary Dx) [id number] [place] [address] [phone] Social History Tobacco Use Types Packs/Day Years Used Date Smoking Tobacco: Never Alcohol Use Standard Drinks/Week Comments No 0 (1 standard drink = 0.6 oz pure alcoho l) Sex Assigned at Date Recorded Not on file documented as of this encounter Last Filed Vital Signs Vital Sign Reading Time Taken Comments Blood Pressure 130/90 01/23/2006 10:15 AM CDT Pulse 84 01/23/2006 10:15 AM CDT Temperature - - Respiratory Rate - - Oxygen Saturation - - Inhaled Oxygen Concentration - - Weight 101.6 kg (224 lb) 01/23/2006 10:15 AM CDT Height 162.6 cm (5' 4) 01/23/2006 10:15 AM CDT Body Mass Index 38.45 01/23/2006 10:15 AM CDT documented in this encounter Progress Notes Ranjith Hughes - 01/23/2006 10:40 AM CDT SUBJECTIVE: Brady Escobar is a 65 year old female who sustained a both sides knee injury several years ago.Mechanism of injury: overuse and ddjd. Immediate symptoms: delayed pain. Symptoms have been gradual since that time. Prior history of related problems: previous knee problems. OBJECTIVE: Vital signs as noted above. Appearance: in no apparent distress. Knee exam: soft tissue tenderness over anterior aspect of knee.. X-ray: no fracture or dislocation noted but there is significant djd ASSESSMENT: Knee exacerbation of ddjd. I suspect she needs knee replacement. PLAN:see orders rest the injured area as much as practical, apply ice packs See orders in [employer] documented in this encounter Nursing Notes 01/23/2006 10:15 AM CDT >> JULIA GASCA 01/23/2006 10:29 am Patient presents with: Knee Pain - right knee pain Initial BP 130/90 Pulse 84 Ht 5' 4 (1.63m) Wt 224 lbs (101.6kg) LMP Postmenopausal Body mass index is 38.43 kg/(m^2).. BP completed using cuff size: large Julia Gasca SALES ADMINISTRATION MANAGER documented in this encounter Plan of Treatment Not on filedocumented as of this encounter Procedures Procedure Name Priority Date/Time Associated Comments Diagnosis ZZ CONSULT MC Routine 02/04/2007 Joint Pain-Lower ORTHOPEDIC GENERAL Leg HC X-RAY KNEE AP Routine 01/23/2006 1:50 PM Joint Pain-Lower R esults for this STANDING BILATERAL CDT Leg procedure are in the results section. HC X-RAY KNEE 1-2 Routine 01/23/2006 1:49 PM Joint Pain-Lower Results for this VIEWS CDT Leg procedure are i n the results section. documented in this encounter Results CONSULT ORTHOPEDIC GENERAL (02/04/2007) Narrative This result has an attachment that is no t available. Ranjith Hughes MD REFERRAL X-RAY KNEE BILAT STANDING (AP ONLY) (01/23/2006 1:50 PM CDT) Anatomical Region Laterality Modality Other Impressions 01/23/2006 1:50 PM CDT REPORT OF OUTSIDE FILMS FROM [facility] BRADY ESCOBAR : ??44 2-VIEW RIGHT KNEE: ??01/23/06 FINDINGS: ??Severe degenerative changes are seen with joint space narrowing medially and spur formation. ? ?Patellofemoral joint shows severe degenerative spurring. Pradeep Hamilton M.D./dmp D/T: ??01/25/06 2-VIEW LEFT KNEE: ??01/23/06 FINDINGS: ??Again prominent degenerative changes are seen with joint space narrowing medially and spur formation both medially and laterally. ??The patellofemoral join t has severe degenerative spurring. Pradeep Hamilton M.D./dmp D/T: ??01/25/06 Ordering MD/Provider Initial Interpretat ion: Abnormal with Chronic Stable Findings. Electronically filed by Alix George ??01/23/2006 ??1:50 PM Ranjith Hughes MD GENERAL IMAGING X-RAY KNEE 1 OR 2 VIEW (01/23/2006 1:49 PM CDT) Anatomical Region Laterality Modality Other Impressions 01/23/2006 1:49 PM CDT REPORT OF OUTSIDE FILMS FROM [facility] BRADY ESCOBAR : ??44 2-VIEW RIGHT KNEE: ??01/23/06 FINDINGS: ??Severe degenerative changes are seen with joint space narrowing medially and spur formation. ? ?Patellofemoral joint shows severe degenerative spurring. Pradeep Hamilton M.D./dmp D/T: ??01/25/06 2-VIEW LEFT KNEE: ??01/23/06 FINDINGS: ??Again prominent degenerative changes are seen with joint space narrowing medially and spur formation both medially and laterally. ??The patellofemoral join t has severe degenerative spurring. Pradeep Hamilton M.D./kimmie D/T: ??01/25/06 Ordering MD/Provider Initial Interpretat ion: No Initial Interpretation. Electronically filed by Alix George ??01/23/2006 ??1:50 PM Ranjith Hughes MD GENERAL IMAGING documented in this encounter Visit Diagnoses Diagnosis Pain in joint, lower leg - Primary documented in this encounter Care Teams Bounty Trapper Relationship Specialty Start Date End Date Ranjith Hughes MD PCP - General 07/11/02 3 [address] [place] [address] documented as of this encounter
--- OUTSIDE RECORDS SUMMARY | 2022-07-19 23:02 | XMS_ITS | Encounter Summary ---
:1940 Author Organization [place] Address [address] [place] [address] Care Team Providers Name Role Phone Ranjith Hughes MD Primary Care Provider Encounter Details Date Type Department Care Team Description 12/21/2006 Emergency room Jesica Cazares MD EMERGENCY PHYSIC [facility] [address] [place] [address] (Wo rk) Social History Tobacco Use Types Packs/Day Years Used Date Smoking Tobacco: Never Alcohol Use Standard Drinks/Week Comments No 0 (1 standard drink = 0.6 oz pure alcoho l) Sex Assigned at Date Recorded Not on file documented as of this encounter Progress Notes Shemar Cazares - 01/14/2007 6:39 AM CDT FINAL CHIEF COMPLAINT: Headache, vomiting and diarrhea. HISTORY OF PRESENT ILLNESS: This 66-year-old female who reports that yesterday she started to have abrupt onset of a headache, it is her whole head, worse in the frontal region, associated with vomiting and diarrhea at approximately the same time the other symptoms started. The diarrhea was not bloody, nonbilious. She said that her headache pain is a 6/10, not associated with any trauma. She has hadno URI symptoms except for a constant postnasal drip. She describes it as a dull headache. She has had no neck stiffness. She says that the headache is worse with position changes. She has found nothing that has made the headache better. She has taken Darvocet which did improve her headache. She says that she has had some abdominal cramping; however, she has no abdominal pain. No dysuria and she is urinating as much as usual. Her stools have been very watery. She has not traveled anywhere. She stillfeels nauseated currently at this time. MEDICATIONS: Darvocet, Celebrex and an antidepressant. ALLERGIES: Cephalosporin, erythromycin, penicillin and a particular antidepressant which causes side effects. PAST MEDICAL HISTORY: Knee surgery, depression. FAMILY HISTORY: Negative for migraines. SOCIAL HISTORY: The patient denies alcohol, tobacco or drug use. REVIEW OF SYSTEMS: As in the HPI, all other systems are negative. PHYSICAL EXAMINATION: The patient is a well-developed, overweight 66-year-old female who appears slightly uncomfortable. She is alert, oriented and appropriate. VITAL SIGNS: Temperature 98.4, blood pressure 140/88, pulse 98, respirations 18, 02 saturation 93% on room air, discharge oxygen saturation was 95%. HEENT: Normocephalic, atraumatic. Her pupils are equally round and reactive to light. Extraocular muscles are intact without nystagmus. Funduscopic exam is normal. There is no papilledema. Cranial nerves II-XII are intact. She does have some tenderness to percussion over the frontal sinuses. Her TMs are clear bilaterally. There is no meningismus. There is no CT or L-spine tenderness. HEART: Regular. LUNGS: Clear to auscultation bilaterally without wheezes or crackles. ABDOMEN: Soft, there is some discomfort with palpation; however, there is no guarding or rebound. EXTREMITIES: Her lower extremities are without swelling. The patient is neurovascularly intact in all 4 extremities. Capillary refill is 2-3 seconds. SKIN: Cool, pink and dry without rashes or petechiae. LABORATORY AND DIAGNOSTIC STUDIES: White count normal at 4.6, there is no anemia. BMP significantlyonly for a calcium of 10.7, glucose normal at 89, creatinine 0.7, carbon monoxide 4. Her daughter who lives with her reported a headache, no one else has reported headache. Her urine does not demonstrate any signs of infection. Head CT was performed which demonstrated no abnormality within the brain parenchyma, however, there is some sinus disease. EMERGENCY DEPARTMENT COURSE: The patient reports she has had a headache associated with vomiting and diarrhea. There has been no neck stiffness or meningismus, however, I did discuss the risk that this could be related to meningitis or bleeding inside of her head. I did talk the patient into having a head CT, however, she said that she did not want a lumbar puncture. I discussed with her the risk ofmissing an infection or bleeding and she said she is aware of this and she would rather just be treated for her headache. She had an IV placed. She was rehydrated due to being dehydrated with 2 liters of normal saline. She was treated with Tylenol 650 mg which did not improve it and she was then treated with Darvocet which she requested which did take the pain away. She said that she had a family member who was also having headaches and had a carbon monoxide level checked which was 4%. She denies that she has been smoking, but I did correctional substance abuse counselor her that this level is somewhat elevated, but not grossly elevated and I counseled her to have the [employer] come by and check her level. She is aware of thepossible complications of not undergoing the head CT and aware of the need for symptoms to return for as well as the need to follow up. PLAN: 1. Drink plenty of fluids. 2. May take Compazine for nausea and Darvocet for pain. 3. May take Imodium for diarrhea. 4. Follow up with primary care doctor in the next 1-2 days. 5. Return to the ER if headache worsens, changes, lightheadedness, neck stiffness or any concerns. DIAGNOSES: 1. Sinusitis. 2. Gastroenteritis. 3. Headache. 4. Dehydration. 5. Depression. Electronically signed on 01/14/2007 06:37 by SHEMAR CAZARES MD [place]: [id number] Name: BRADY ESCOBAR Account: [id number] : 1940 Visit Date: 12/21/2006 Document: [id number] cc: Ranjith Hughes MD documented in this encounter Plan of Treatment Not on filedocumented as of this encounter Visit Diagnoses Not on filedocumented in this encounter Care Teams Plodder Operator Relationship Specialty Start Date End Date Ranjith Hughes MD PCP - General 07/11/02 12/17/13 [address] [place] [address] documented as of this encounter
--- OUTSIDE RECORDS SUMMARY | 2022-07-19 23:02 | XMS_ITS | Encounter Summary ---
:1940 Author Organization [place] Address [address] [place] [address] Care Team Providers Name Role Phone Ranjith Hughes MD Primary Care Provider Reason for Visit Reason Comments Anticoagulation Encounter Details Date Type Department Care Team Description 02/19/2006 Office Visit [facility] AFT ERCARE TUBE WASHER [place] ANTICOAG USE (Primary Dx) [address] [place] [address] Social History Tobacco Use Types Packs/Day Years Used Date Smoking Tobacco: Never Alcohol Use Standard Drinks/Week Comments No 0 (1 standard drink = 0.6 oz pure alcoho l) Sex Assigned at Date Recorded Not on file documented as of this encounter Progress Notes Melly Casper - 02/19/2006 2:27 PM CDT ANTICOAGULATION FOLLOW-UP CLINIC VISIT Patient Name: Lee Ann Herndon Date: 02/19/2006 SUBJECTIVE: Bleeding Signs/Symptoms: Minor - nose bleed today Thromboembolic Signs/Symptoms: None Medication Changes: NO Dietary Changes: NO Bacterial/Viral Infection: NO Missed Coumadin Doses: Took two doses 02/16/06 and then held 02/17/06 dose Other Concerns: NO ASSESSMENT/PLAN: See: ANTICOAGULATION QIC flow sheet. CR ANTICOAGULATION CLINIC Melly Casper RN documented in this encounter Plan of Treatment Not on filedocumented as of this encounter Procedures Procedure Name Priority Date/Time Associated Diagnosis Comme nts HCL INR POCT Routine 02/19/2006 Aftercare Longterm Results for this Anticoag Use procedure are i n the results section . 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
--- OUTSIDE RECORDS SUMMARY | 2022-07-19 23:02 | XMS_ITS | Encounter Summary ---
:1940 Author Organization [place] Address [address] [place] [address] Care Team Providers Name Role Phone Ranjith Hughes MD Primary Care Provider Reason for Visit Reason Comments Anticoagulation Encounter Details Date Type Department Care Team Description 02/05/2006 Office Visit [facility] AFT ERCARE DECORATING KILN OPERATOR [place] ANTICOAG USE (Primary Dx) [address] [place] [address] Social History Tobacco Use Types Packs/Day Years Used Date Smoking Tobacco: Never Alcohol Use Standard Drinks/Week Comments No 0 (1 standard drink = 0.6 oz pure alcoho l) Sex Assigned at Date Recorded Not on file documented as of this encounter Progress Notes Melly Casper - 02/05/2006 5:24 PM CDT ANTICOAGULATION INITIAL CLINIC VISIT Patient Name: Lee Ann Herndon Date: 02/05/2006 Referred by: Dr Theodore briggs and Dr Hughes SUBJECTIVE: Coumadin education was completed today. Topics covered include: -Introduction to coumadin -Proper Administration -INR Testing -Sign/Symptoms of Bleeding -Signs/Symptoms of Clot Formation or Stroke -Dietary Intake of Vitamin K -Drug Interactions -Anticoagulation Identification (bracelet, necklace or wallet card) -Future Surgery -Effects of Alcohol, Tobacco, and Exercise on Coumadin Coumadin Education Booklet and Coumadin Identification Wallet Card were given to the patient. Bleeding Signs/Symptoms: None Thromboembolic Signs/Symptoms: None Medication Changes: NO Dietary Changes: NO Bacterial/Viral Infection: NO Missed Coumadin Doses: None Other Concerns: NO ASSESSMENT/PLAN: See: ANTICOAGULATION QIC flowsheet. CR ANTICOAGULATION CLINIC Melly Casper RN documented in this encounter Plan of Treatment Not on filedocumented as of this encounter Procedures Procedure Name Priority Date/Time Associated Diagnosis Comme nts HCL INR POCT Routine 02/05/2006 [facility]care [facility] Results for this Anticoag Use procedure are i n the results section . documented in this encounter Results INR POINT OF CARE (02/05/2006) P athologist Signature INR Point of 2.1 [facility] Ranjith Hughes MD LABORATORY Performing Organization Address City/State/ZIP Code Phon e Number [facility] documented in this encounter Visit Diagnoses Diagnosis [facility] (current) use of anticoagulant s - Primary Long-term (current) use of anticoagulant s documented in this encounter Care Teams Compressor Station Chief Engineer Relationship Specialty Start Date End Date Ranjith Hughes MD PCP - General 07/11/02 12/17/13 [address] [place] [address] documented as of this encounter
--- OUTSIDE RECORDS SUMMARY | 2022-07-19 23:02 | XMS_ITS | Encounter Summary ---
:1940 Author Organization [place] Address [address] [place] [address] Care Team Providers Name Role Phone Ranjith Hughes MD Primary Care Provider Reason for Visit Reason Onset Date Comments POLITICAL REPORTER - INPATIENT 02/19/2007 Encounter Details Date Type Department Care Team Description 02/19/2007 Telephone [facility] PH[facility]ICIAN Sandra Palmer POLITICAL REPORTER - [facility] - [facility]ARE PHYSIC[facility] [address] [place] [address] [place] [id number] [phone] Social History Tobacco Use Types Packs/Day Years Used Date Smoking Tobacco: Never Alcohol Use Standard Drinks/Week Comments No 0 (1 standard drink = 0.6 oz pure alcoho l) Sex Assigned at Date Recorded Not on file documented as of this encounter Miscellaneous Notes Telephone Encounter - Caden Palmer - 02/28/2007 4:34 PM CDT PASS, ERV, EPIC and FCIS reviewed. PASS indicates member discharged to home on 02/20/07, no services.FRANK Chew CM FPA Telephone Encounter - Aaliyah Andrews - 02/19/2007 9:14 AM CDT This FPA [facility] member was admitted to [facility] 02/18/07 with dx: degenerative arthritis. LV for CARMEN Beckwith [facility] hosp [phone] re: this patient is a member of the [facility] Managed Care Plan and should remain within those systems at the time of d/c to optimize continuity of care and maximize her coverage benefit. Left the contact information for Caden Spencer ([phone]) the FPA foster care case manager assigned to this patient's clinic for questions or updates. Aaliyah Andrews RN CM FPA documented in this encounter Plan of Treatment Not on filedocumented as of this encounter Visit Diagnoses Not on filedocumented in this encounter Care Teams Entry Level Receptionist Relationship Specialty Start Date End Date Ranjith Hguhes MD PCP - General 07/11/02 12/17/13 [address] [place] [address] documented as of this encounter
--- OUTSIDE RECORDS SUMMARY | 2022-07-19 23:02 | XMS_ITS | Encounter Summary ---
:1940 Author Organization [place] Address [address] [place] [address] Care Team Providers Name Role Phone Ranjith Hughes MD Primary Care Provider Encounter Details Date Type Department Care Team Description 12/21/2006 Historic Results INTERFACED REPORT John Chen MD EMERGENCY PHYSIC [facility] [address] [place] [address] (Wo rk) Social History [...] Associated Comments Diagnosis ROUTINE UA WITH STAT 12/21/2006 7:45 PM Result s for this MICROSCOPIC CDT procedure are i n the results section. HEMOGRAM DIFFERENTIAL STAT 12/21/2006 5:50 PM Results for this AND PLATELET CDT procedure are i n the results section. CARBON MONOXIDE STAT 12/21/2006 5:50 PM Result s for this CDT procedure are i n the results section. BASIC METABOLIC PANEL STAT 12/21/2006 5:50 PM Results for this CDT procedure are i n the results section. documented in this encounter Results (ABNORMAL) Routine UA with microscopic (12/21/2006 7:45 PM CDT) [facility] Method Time Signature Source Midstream [facility] Urine Color Urine Light Yellow [facility] Appearance Urine Clear [facility] Glucose Urine Negative NEG mg/dL [facility] Bilirubin Urine Negative NEG [facility] Ketones Urine 10 (A) NEG mg/dL [facility] Specific [place] 1.006 1.003 - [facility] Urine 1.035 Blood Urine Negative NEG [facility] pH Urine 5.5 5.0 - 7.0 [facility] pH Protein Albumin Negative NEG mg/dL [facility] Urine Urobilinogen Normal 0.0 - 2.0 [facility] mg/dL mg/dL Nitrite Urine Negative NEG [facility] Leukocyte Negative NEG [facility] Esterase Urine WBC Urine <1 0 - 2 [facility] /HPF RBC Urine 2 0 - 2 [facility] /HPF Squamous 1 0 - 1 [facility] Epithelial /HPF /HPF Urine Renal Tub Epi <1 (A) NEG /HPF [facility] Mucous Urine Present (A) NEG /LPF [facility] Specimen Anatomical Collection Method Collection Time Receive d Time (Source) Location / / Volume Laterality 12/21/2006 7:45 PM 7 5:27 CDT PM CDT Shemar Chen MD LAB - URINE ORDERABLES Performing Organization Address City/State/ZIP Code Phon e Number [facility] (ABNORMAL) Hemogram differential and platelet (12/21/2006 5:50 PM CDT) [facility] gist Method Time Signature MCV 93 78 - 100 [facility] fl MCH 30.2 26.5 - [facility] 33.0 pg MCHC 32.7 31.5 - [facility] 36.5 g/dL RDW 13.7 10.0 - [facility] 15.0 % WBC 4.6 4.0 - [facility] 11.0 10e9/L RBC Count 4.93 3.8 - 5.2 [facility] 10e12/L Hemoglobin 14.9 11.7 - [facility] 15.7 g/dL Hematocrit 45.6 35.0 - MIS[facility] 47.0 % % Neutrophils 68 40 - 75 % [facility] % Lymphocytes 23 20 - 48 % [facility] % Monocytes 8 0 - 12 % [facility] % Eosinophils 1 0 - 6 % [facility] % Basophils 0 0 - 2 % [facility] Platelet Count 121 (L) 150 - 450 [facility] 10e9/L Absolute 3.1 1.6 - 8.3 [facility] Neutrophil 10e9/L Absolute 1.1 0.8 - 5.3 [facility] Lymphocytes 10e9/L Absolute 0.4 0.0 - 1.3 [facility] Monocytes 10e9/L Absolute 0.0 0.0 - 0.7 [facility] Eosinophils 10e9/L Absolute 0.0 0.0 - 0.2 [facility] Basophils 10e9/L Diff Method Automated [facility] Method Specimen Anatomical Collection Method Collection Time Receive d Time (Source) Location / / Volume Laterality 12/21/2006 5:50 PM 7 5:27 CDT PM CDT Shemar Chen MD LAB - BLOOD ORDERABLES Performing Organization Address City/State/ZIP Code Phon e Number [facility] (ABNORMAL) Basic metabolic panel (12/21/2006 5:50 PM CDT) Analysis Performed At Patho logist Time Signature Sodium 141 133 - 144 [facility] mmol/L Potassium 4.1 3.4 - 5.3 [facility] mmol/L Chloride 106 94 - 109 [facility] mmol/L Carbon Dioxide 25 20 - 32 [facility] mmol/L Glucose 89 60 - 110 [facility] mg/dL Urea Nitrogen 12 7 - 30 [facility] mg/dL Creatinine 0.71 0.60 - [facility] 1.30 mg/dL GFR Estimate 88 >60 [facility] mL/min/1.7 m2 GFR Estimate If >90 >60 [facility] Black mL/min/1.7 m2 Calcium 10.7 (H) 8.5 - 10.4 [facility] mg/dL Anion Gap 9 6 - 17 [facility] mmol/L Specimen Anatomical Collection Method Collection Time Receive d Time (Source) Location / / Volume Laterality 12/21/2006 5:50 PM 7 5:27 CDT PM CDT Shemar Chen MD LAB - BLOOD ORDERABLES Performing Organization Address City/State/ZIP Code Phon e Number [facility] (ABNORMAL) Carbon monoxide (12/21/2006 5:50 PM CDT) P athologist Signature Carbon Monoxide 4 (H) 0 - 2 % [facility] Specimen Anatomical Collection Method Collection Time Receive d Time (Source) Location / / Volume Laterality 12/21/2006 5:50 PM 7 5:27 CDT PM CDT Shemar Chen MD LAB - BLOOD ORDERABLES Performing Organization Address City/State/ZIP Code Phon e Number [facility] documented in this encounter Visit Diagnoses Not on filedocumented in this encounter Care Teams Swing Saw Operator Relationship Specialty Start Date End Date Ranjith Hughes MD PCP - General 07/11/02 12/17/13 [address] [place] [address] documented as of this encounter
--- OUTSIDE RECORDS SUMMARY | 2022-07-19 23:02 | XMS_ITS | Encounter Summary ---
:1940 Author Organization [facility] Address [address] [place] [address] Care Team Providers Name Role Phone Ranjith Hughes MD Primary Care Provider Encounter Details Date Type Department Care Team Description 02/20/2007 Historic Results [facility] Thedoore Morrissey MD Hospitalists [facility] [address] ORTHOPEDICS [place], [place] [address] [phone] [id number] [address] [place], [place] [address] (Wo rk) Social History [...] Date/Time Associated Diagnosis Comme nts INR Routine 02/20/2007 7:06 AM Results f or this CDT procedure are i n the results section . HEMOGLOBIN Routine 02/20/2007 7:06 AM Results f or this CDT procedure are i n the results section . documented in this encounter Results (ABNORMAL) Hemoglobin (02/20/2007 7:06 AM CDT) P athologist Signature Hemoglobin 10.3 (L) 11.7 - 15.7 [facility] g/dL Specimen (Source) Anatomical Collection Method Collection Time Re ceived Time Location / / Volume Laterality 02/20/2007 7:06 AM 7 CDT Theodore Palmer MD LAB - BLOOD ORDERABLES Performing Organization Address City/State/ZIP Code Phon e Number [facility] (ABNORMAL) INR (02/20/2007 7:06 AM CDT) P athologist Signature INR 1.26 (H) 0.86 - 1.14 [facility] Specimen (Source) Anatomical Collection Method Collection Time Re ceived Time Location / / Volume Laterality 02/20/2007 7:06 AM 7 CDT Theodore Palmer MD LAB - BLOOD ORDERABLES Performing Organization Address [facility] Phon e Number [facility] documented in this encounter Visit Diagnoses Not on filedocumented in this encounter Care Teams Reading Professor Relationship Specialty Start Date End Date Ranjith Hughes MD PCP - General 07/11/02 12/17/13 [address] [place] [address] documented as of this encounter
--- OUTSIDE RECORDS SUMMARY | 2022-07-19 23:02 | XMS_ITS | Encounter Summary ---
:1940 Author Organization [place] Address On license of [facility] [address] Care Team Providers Name Role Phone Ranjith Hughes MD Primary Care Provider Reason for Visit Reason Comments RECHECK knee replacement 01/31/06. Her e for INR follow up and hosp follow up Encounter Details Date Type Department Care Team Description 02/05/2006 Office Visit [facility] Ranjith Hughes DEPRES SIVSkylar DISORDER NEC (Primary Dx); [facility] [place] JOINT PAIN-LOWER LEG [address] [place] [phone] [id number] Social History Tobacco Use Types Packs/Day Years Used Date Smoking Tobacco: Never Alcohol Use Standard Drinks/Week Comments No 0 (1 standard drink = 0.6 oz pure alcoho l) Sex Assigned at Date Recorded Not on file documented as of this encounter Last Filed Vital Signs Vital Sign Reading Time Taken Comments Blood Pressure 120/70 02/05/2006 4:00 PM CDT Pulse - - Temperature - - Respiratory Rate - - Oxygen Saturation - - Inhaled Oxygen Concentration - - Weight - - Height - - Body Mass Index - - documented in this encounter Progress Notes Ranjith Hughes - 02/05/2006 4:58 PM CDT SUBJECTIVE: Lee Ann Herndon is a 65 year old female complains of knee pain after surgery for replacement; doing well, in pt no fever chills or sob. Past Medical History Diagnosis Date ??? ESOPHAGEAL REFLUX ??? DEPRESSIVE DISORDER NEC Past Surgical History Procedure Date ??? Nonspecific procedure s/p x 2, spAb x 1 ??? Nonspecific procedure s/p appendectomy ??? Nonspecific procedure s/p D&C after spAb ??? Surgical history of - hernia repair, rt inguinal ??? Surgical history of - knee replacement on the rt Current outpatient prescriptions Medication Sig ??? PROZAC 20 MG OR CAPS 1 CAP PO QD (Once per day) in AM ??? DARVOCET-N 100 100-650 MG OR TABS 1 TABLET EVERY 4 HOURS NEEDED ??? TYLENOL ARTHRITIS PAIN 650 MG OR TBCR 2 TABLETS EVERY 8 HOURS NEEDED ??? PRILOSEC 20 MG OR CPDR 1 TAB PO QD (Once per day) ??? PIROXICAM 20 MG OR CAPS 1 CAPSULE DAILY ??? ULTRAM 50 MG OR TABS 1 po bid Review Of Systems Skin: negative Eyes: negative Ears/Nose/Throat: negative Respiratory: negative Cardiovascular: negative Gastrointestinal: negative Genitourinary: negative Musculoskeletal: as above Neurologic: negative Psychiatric: negative Hematologic/Lymphatic/Immunologic: negative Endocrine: as above OBJECTIVE: BP 120/70 LMP Postmenopausal Exam; Ears normal. Throat and pharynx normal. Neck supple. No adenopathy or masses in the neck or supraclavicular regions. Sinuses non tender. The neck is supple and free of adenopathy or masses, the thyroid is normal without enlargement or nodules. Chest is clear, no wheezing or rales. Normal symmetric air entry throughout both lung cash. No chest wall deformities or tenderness. S1 and S2 normal, no murmurs, clicks, gallops or rubs. Regular rate and rhythm. Chest is clear; no wheezes or rales. No edema or JVD. The abdomen is soft without tenderness, guarding, mass, rebound or organomegaly. Bowel sounds are normal. No CVA tenderness or inguinal adenopathy noted. Ext; rt knee with covering and decreased rom. ASSESSMENT: 1. JOINT PAIN-LOWER LEG [719.46] 2.DEPRESSIVE DISORDER NEC [311] 3. Knee replacement 4. Anemia; no replacement in the hopital so we recheck PLAN: 1. see orders 2. Check inr today. 3. Rtc in 1 month. 4. Continue present meds documented in this encounter Nursing Notes 02/05/2006 4:00 PM CDT >> RD AVILEZ 02/05/2006 4:23 pm Patient presents with: RECHECK - knee replacement 01/31/06. Here for INR follow up and hosp follow up Initial BP 120/70 LMP Postmenopausal Estimated Body mass index is 38.43 kg/(m^2) as calculated from: Height of 5' 4 (1.626 m) as of 01/24/06 Weight of 224 lbs (101.606 kg) as of 01/24/06. BP completed using cuff size large Letty Avilez [employer] documented in this encounter Plan of Treatment Not on filedocumented as of this encounter Procedures Procedure Name Priority Date/Time Associated Comments Diagnosis HCL HEMOGLOBIN Routine 02/05/2006 4:56 PM Depressive Disorder Results for this NONLAB CDT Nec procedure are i n the results section. documented in this encounter Results (ABNORMAL) HGB (02/05/2006 4:56 PM CDT) P athologist Signature Hemoglobin 11.6 (L) 11.7 - 15.7 [facility] Specimen Anatomical Collection Method Collection Time Receive d Time (Source) Location / / Volume Laterality 02/05/2006 4:56 PM 6 5:01 CDT PM CDT Ranjith Hughes MD LABORATORY Performing Organization Address City/State/ZIP Code Phon e Number [facility] [address] [place] [address] [facility] documented in this encounter Visit Diagnoses Diagnosis Depressive disorder, not elsewhere class ified - Primary Pain in joint, lower leg documented in this encounter Care Teams Roving Frame Tender Relationship Specialty Start Date End Date Ranjith Hughes MD PCP - General 07/11/02 12/17/13 [address] [place] [address] documented as of this encounter
--- OUTSIDE RECORDS SUMMARY | 2022-07-19 23:02 | XMS_ITS | Encounter Summary ---
:1940 Author Organization [place] Address [address] [place] [address] Care Team Providers Name Role Phone Ranjith Hughes MD Primary Care Provider Encounter Details Date Type Department Care Team Description 02/18/2007 Results Only [facility] Theodore Palmer MD Hospital Results [facility] [address] [place], [place] [address] (Wo rk) Social History [...] Procedure Name Priority Date/Time Associated Diagnosis Comme [facility] LT X-RAY KNEE 1 Routine 02/18/2007 4:06 PM Re sults for this OR 2 VIEW CDT procedure are i n the results section. documented in this encounter Results LT X-RAY KNEE 1 OR 2 VIEW (02/18/2007 4:06 PM CDT) Anatomical Region Laterality Modality Other Specimen (Source) Anatomical Collection Method Collection Time Re ceived Time Location / / Volume Laterality 02/18/2007 4:06 PM CDT Impressions 02/19/2007 7:32 AM CDT EXAM: ??KNEE 1- 2 VW PORTABLE LEFT HISTORY: ??Postop. FINDINGS: TKA well positioned. Drain in place. Theodore Palmer MD GENERAL IMAGING documented in this encounter Visit Diagnoses Not on filedocumented in this encounter Care Teams Advertising Statistical Clerk Relationship Specialty Start Date End Date Ranjith Hughes MD PCP - General 07/11/02 12/17/13 [address] [place] [address] documented as of this encounter
--- OUTSIDE RECORDS SUMMARY | 2022-07-19 23:02 | XMS_ITS | Encounter Summary ---
:1940 Author Organization [place] Address [address] [place] [address] Care Team Providers Name Role Phone Ranjith Hughes MD Primary Care Provider Encounter Details Date Type Department Care Team Description 02/02/2006 Historic Results [place] Theodore Morrissey MD Hospitalists [facility] [address] [place]ED[place], [place] [address] [facility] [address] [address] [place], [place] [address] (Wo rk) Social History [...] Date/Time Associated Diagnosis Comme nts INR Routine 02/02/2006 6:35 AM Results f or this CDT procedure are i n the results section . HEMOGLOBIN Routine 02/02/2006 6:35 AM Results f or this CDT procedure are i n the results section . documented in this encounter Results (ABNORMAL) Hemoglobin (02/02/2006 6:35 AM CDT) P athologist Signature Hemoglobin 10.5 (L) 11.7 - 15.7 [facility] g/dL Specimen (Source) Anatomical Collection Method Collection Time Re ceived Time Location / / Volume Laterality 02/02/2006 6:35 AM 6 CDT Theodore Palmer MD LAB - BLOOD ORDERABLES Performing Organization Address City/State/ZIP Code Phon e Number [facility] (ABNORMAL) INR (02/02/2006 6:35 AM CDT) P athologist Signature INR 1.27 (H) 0.86 - 1.14 [facility] Specimen (Source) Anatomical Collection Method Collection Time Re ceived Time Location / / Volume Laterality 02/02/2006 6:35 AM 6 CDT Theodore Palmer MD LAB - BLOOD ORDERABLES Performing Organization Address [facility] Phon e Number [facility] documented in this encounter Visit Diagnoses Not on filedocumented in this encounter Care Teams Orthotic Assistant Relationship Specialty Start Date End Date Ranjith Hughes MD PCP - General 07/11/02 12/17/13 [address] [place] [address] documented as of this encounter
--- OUTSIDE RECORDS SUMMARY | 2022-07-19 23:02 | XMS_ITS | Encounter Summary ---
:1940 Author Organization [place] Address [address] [place] [address] Care Team Providers Name Role Phone Ranjith Hughes MD Primary Care Provider Encounter Details Date Type Department Care Team Description 02/19/2007 Historic Results [place] Theodore Morrissey MD Hospitalists [facility] [address] [place]ED[place], [place] [address] [facility] [phone] [address] [place], [place] [address] (Wo rk) Social History [...] Priority Date/Time Associated Diagnosis Comme nts INR Timed 02/19/2007 8:30 AM Results f or this CDT procedure are i n the results section. ELECTROLYTE PANEL Routine 02/19/2007 7:05 AM Resu lts for this CDT procedure are i n the results section. HEMOGLOBIN Routine 02/19/2007 7:05 AM Results f or this CDT procedure are i n the results section. documented in this encounter Results (ABNORMAL) INR (02/19/2007 8:30 AM CDT) P athologist Signature INR 1.16 (H) 0.86 - 1.14 [facility] Specimen Anatomical Collection Method Collection Time Receive d Time (Source) Location / / Volume Laterality 02/19/2007 8:30 AM 7 8:10 CDT AM CDT Theodore Palmer MD LAB - BLOOD ORDERABLES Performing Organization Address City/[facility] Phon e Number [facility] (ABNORMAL) Hemoglobin (02/19/2007 7:05 AM CDT) P athologist Signature Hemoglobin 11.0 (L) 11.7 - 15.7 [facility] g/dL Comment: Results confirmed by repeat yanira t Specimen (Source) Anatomical Collection Method Collection Time Re ceived Time Location / / Volume Laterality 02/19/2007 7:05 AM 7 CDT Theodore Palmer MD LAB - BLOOD ORDERABLES Performing Organization Address City/[facility] Phon e Number [facility] (ABNORMAL) Electrolyte panel (02/19/2007 7:05 AM CDT) P athologist Signature Sodium 134 133 - 144 [facility] mmol/L Potassium 4.2 3.4 - 5.3 [facility] mmol/L Chloride 103 94 - 109 [facility] mmol/L Carbon Dioxide 28 20 - 32 [facility] mmol/L Anion Gap 3 (L) 6 - 17 [facility] mmol/L Specimen (Source) Anatomical Collection Method Collection Time Re ceived Time Location / / Volume Laterality 02/19/2007 7:05 AM 7 CDT Theodore Palmer MD LAB - BLOOD ORDERABLES Performing Organization Address City/[facility] Phon e Number [facility] documented in this encounter Visit Diagnoses Not on filedocumented in this encounter Care Teams Case Specialist Relationship Specialty Start Date End Date Ranjith Hughes MD PCP - General 07/11/02 12/17/13 [address] [place] [address] documented as of this encounter
--- OUTSIDE RECORDS SUMMARY | 2022-07-19 23:02 | XMS_ITS | Encounter Summary ---
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[place] ANTICOAG USE (Primary Dx) [address] [place] [address] Social History Tobacco Use Types Packs/Day Years Used Date Smoking Tobacco: Never Alcohol Use Standard Drinks/Week Comments No 0 (1 standard drink = 0.6 oz pure alcoho l) Sex Assigned at Date Recorded Not on file documented as of this encounter Progress Notes Shahnaz Chambers - 02/08/2006 3:41 PM CDT ANTICOAGULATION FOLLOW-UP CLINIC VISIT Patient Name: Lee Ann Herndon Date: 02/08/2006 SUBJECTIVE: Bleeding Signs/Symptoms: None Thromboembolic Signs/Symptoms: None Medication Changes: NO Dietary Changes: NO Bacterial/Viral Infection: NO Missed Coumadin Doses: None Other Concerns: NO ASSESSMENT/PLAN: See: ANTICOAGULATION QIC flow sheet. [facility] ANTICOAGULATION CLINIC documented in this encounter Plan of Treatment Not on filedocumented as of this encounter Procedures Procedure Name Priority Date/Time Associated Diagnosis Comme nts HCL INR POCT Routine 02/08/2006 [facility] Results for this Anticoag Use procedure are i n the results section . 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
--- OUTSIDE RECORDS SUMMARY | 2022-07-19 23:02 | XMS_ITS | Encounter Summary ---
:1940 Author Organization [place] Address [address] [place] [address] Care Team Providers Name Role Phone Ranjith Hughes MD Primary Care Provider Encounter Details Date Type Department Care Team Description 02/01/2006 [facility] [address] OR[place]OPEDICS [place], [place] [address] [facility] [address] [address] [place], [place] [address] (Wo rk) Social History [...] Name Priority Date/Time Associated Diagnosis Comme nts ELECTROLYTE PANEL Routine 02/01/2006 7:11 AM Resu lts for this CDT procedure are i n the results section. INR Routine 02/01/2006 7:11 AM Results f or this CDT procedure are i n the results section. HEMOGLOBIN Routine 02/01/2006 7:11 AM Results f or this CDT procedure are i n the results section. documented in this encounter Results (ABNORMAL) Hemoglobin (02/01/2006 7:11 AM CDT) P athologist Signature Hemoglobin 10.6 (L) 11.7 - 15.7 [facility] g/dL Specimen (Source) Anatomical Collection Method Collection Time Re ceived Time Location / / Volume Laterality 02/01/2006 7:11 AM 6 CDT Theodore Palmer MD LAB - BLOOD ORDERABLES Performing Organization Address City/[facility] Phon e Number [facility] (ABNORMAL) Electrolyte panel (02/01/2006 7:11 AM CDT) P athologist Signature Sodium 128 (L) 133 - 144 [facility] mmol/L Comment: Results confirmed by repeat yanira t Potassium 4.1 3.4 - 5.3 mmol/L [facility] Chloride 100 94 - 109 mmol/L [facility] Carbon Dioxide 26 20 - 32 mmol/L [facility] Anion Gap <1 (L) 6 - 17 mmol/L [facility] Specimen (Source) Anatomical Collection Method Collection Time Re ceived Time Location / / Volume Laterality 02/01/2006 7:11 AM 6 CDT Theodore Palmer MD LAB - BLOOD ORDERABLES Performing Organization Address [facility] Phon e Number [facility] INR (02/01/2006 7:11 AM CDT) P athologist Signature INR 1.14 0.86 - 1.14 [facility] Specimen (Source) Anatomical Collection Method Collection Time Re ceived Time Location / / Volume Laterality 02/01/2006 7:11 AM 6 CDT Theodore Palmer MD LAB - BLOOD ORDERABLES Performing Organization Address [facility] Phon e Number [facility] documented in this encounter Visit Diagnoses Not on filedocumented in this encounter Care Teams Email Marketing Manager Relationship Specialty Start Date End Date Ranjith Hughes MD PCP - General 07/11/02 12/17/13 [address] [place] [address] documented as of this encounter
--- OUTSIDE RECORDS SUMMARY | 2022-07-19 23:02 | XMS_ITS | Encounter Summary ---
:1940 Author Organization [place] Address [address] [place] [address] Care Team Providers Name Role Phone Ranjith Hughes MD Primary Care Provider Encounter Details Date Type Department Care Team Description 01/30/2006 Historic Results [place] Theodore Morrissey MD Hospitalists [facility] [address] [place], [place] [address] [facility] [address] [address] [place], [place] [address] (Wo rk) Social History [...] Priority Date/Time Associated Comments Diagnosis INR Routine 01/30/2006 8:00 AM Results f or this CDT procedure are i n the results section. PARTIAL THROMBOPLASTIN Routine 01/30/2006 8:00 AM Results for this TIME CDT procedure are i n the results section. HEMOGLOBIN Routine 01/30/2006 8:00 AM Results f or this CDT procedure are i n the results section. ABO/RH TYPE AND SCREEN Routine 01/30/2006 8:00 AM Results for this CDT procedure are i n the results section. BASIC METABOLIC PANEL Routine 01/30/2006 8:00 AM Results for this CDT procedure are i n the results section. documented in this encounter Results (ABNORMAL) Basic metabolic panel (01/30/2006 8:00 AM CDT) Analysis Performed At Patho logist Time Signature Sodium 137 133 - 144 [facility] mmol/L Potassium 4.7 3.4 - 5.3 [facility] mmol/L Chloride 106 94 - 109 [facility] mmol/L Carbon Dioxide 27 20 - 32 [facility] mmol/L Glucose 91 60 - 110 [facility] mg/dL Urea Nitrogen 24 7 - 30 [facility] mg/dL Creatinine 0.90 0.60 - [facility] 1.30 mg/dL GFR Estimate 67 >60 [facility] mL/min/1.7 m2 GFR Estimate If 81 >60 [facility] Black mL/min/1.7 m2 Calcium 10.8 (H) 8.5 - 10.4 [facility] mg/dL Anion Gap 5 (L) 6 - 17 [facility] mmol/L Specimen Anatomical Collection Method Collection Time Receive d Time (Source) Location / / Volume Laterality 01/30/2006 8:00 AM 6 7:52 CDT AM CDT Theodore Palmer MD LAB - BLOOD ORDERABLES Performing Organization Address City/State/[facility] Phon e Number [facility] Hemoglobin (01/30/2006 8:00 AM CDT) athologist Signature Hemoglobin 13.7 11.7 - 15.7 [facility] g/dL Specimen Anatomical Collection Method Collection Time Receive d Time (Source) Location / / Volume Laterality 01/30/2006 8:00 AM 6 7:52 CDT AM CDT Theodore Palmer MD LAB - BLOOD ORDERABLES Performing Organization Address City/[facility]/ZIP Code Phon e Number [facility] INR (01/30/2006 8:00 AM CDT) athologist Signature INR 0.88 0.86 - 1.14 [facility] Specimen Anatomical Collection Method Collection Time Receive d Time (Source) Location / / Volume Laterality 01/30/2006 8:00 AM 6 7:52 CDT AM CDT Theodore Palmer MD LAB - BLOOD ORDERABLES Performing Organization Address City/[facility]/ZIP [facility] Phon e Number [facility] Partial thromboplastin time (01/30/2006 8:00 AM CDT) P athologist Signature PTT 28 22 - 37 sec [facility] Specimen Anatomical Collection Method Collection Time Receive d Time (Source) Location / / Volume Laterality 01/30/2006 8:00 AM 6 7:52 CDT AM CDT Theodore Palmer MD LAB - BLOOD ORDERABLES Performing Organization Address [facility] Phon e Number [facility] ABO/Rh type and screen (01/30/2006 8:00 AM CDT) Analysis Performed At Patho logist Time Signature ABO A [facility] RH(D) Pos [facility] Antibody Neg [facility] Screen Specimen 02/02/2006 [facility] Expires Specimen Anatomical Collection Method Collection Time Receive d Time (Source) Location / / Volume Laterality 01/30/2006 8:00 AM 6 7:52 CDT AM CDT Theodore Palmer MD LAB - BLOOD BANK TEST ORDER Performing Organization Address [facility] Phon e Number [facility] documented in this encounter Visit Diagnoses Not on filedocumented in this encounter Care Teams Asphalt Mixer Relationship Specialty Start Date End Date Ranjith Hughes MD PCP - General 07/11/02 12/17/13 [address] [facility] [place] [address] documented as of this encounter
--- OUTSIDE RECORDS SUMMARY | 2022-07-19 23:02 | XMS_ITS | Encounter Summary ---
:1940 Author Organization [place] Address [address] [place] [address] Care Team Providers Name Role Phone Ranjith Hughes MD Primary Care Provider Encounter Details Date Type Department Care Team Description 02/13/2007 Historic Notes INTERFACED REPORT Interface, Transcript on, Social History Tobacco Use Types Packs/Day Years Used Date Smoking Tobacco: Never Alcohol Use Standard Drinks/Week Comments No 0 (1 standard drink = 0.6 oz pure alcoho l) Sex Assigned at Date Recorded Not on file documented as of this encounter Progress Notes Interface, Traffic Operations Manager - 12/19/2010 3:44 PM CDT General Information General Information - <R> How to be addressed Claude - <R> Loan Auditor Needed No Patient Contact Information - <R> automotive parts counter person to Sacha Herndon notify: - <R> Phone 1: [phone] Advance Directive Advanced Health Care Directive Information - <R> Do you have a Advance No Health Care Directive? - Can patient name a Yes Surrogate Decision Maker? (Not legally binding) - Surrogate Name: Sacha Herndon - Surrogate Number: - <R> Would you like to No receive information about Advanced Directives? Health and Illness History Health and Illness History - <R> Reason for Left knee pain. admission/chief complaint as stated by patient Previous reaction to anesthesia - Previous reaction to No anesthesia Prosthetic Implants - Prosthetic Implants Knee replacement; Right knee Vascular Access Device - Does the patient have a VAD No (Vascular Access Device)? Allergies Drug ?? Ampicillin;Hives, Active f0?? penicillin;Hives, Active f0?? Keflex;Hives, Active f0?? tetracycline;Hives, Active f0?? Erythromycin;Hives, Active f0?? Zoloft;Hives, Active f0?? Wellbutrin;Hives, Active f0?? Celexa;Hives, Active f0?? Effexor;Hives, Active pard par Substance Use Tobacco Use - <R> Tobacco Use None Caffeine Use - <R> Caffeine Use Yes - Caffeine Type Coffee - Caffeine Amount < 3 cups/day Alcohol Use - <R> History of Alcohol Use No Street/Recreational Drug Use - <R> History of No Street/Recreational Drug Use Review of Systems Cardiac - Cardiac Problems No Pulmonary - Pulmonary Problems No Peripheral Vascular - Peripheral Vascular No Problems Neuro-Muscular - Neuro Muscular Problems Yes - Neuro Muscular Stiffness Joint pain/swelling Conditions/Symptoms Osteoarhtritis ENT - ENT Problems No GI - GI Problems No - Problems No Skin - Skin Problems No Immune - <R> Immune Problems No - <R> Immunizations Current Immunizations not current - Influenza vaccine Date of last influenza vaccine, 1999 - Pneumococcal Vaccine Date of last Pneumococcal vaccine - Tetanus/Diphtheria Date of last tetanus vaccine, 1998 - Recent Exposure to No Communicable Disease - Communicable Disease No History - Resistant Organism None Endocrine - <R> Endocrine Problems No Mental Health - <R> Mental Health Problems Yes - Mental Health Depression Conditions/Symptoms Cognitive Perceptual Sensory Deficits/Cognition - <R> Vision Problems No - <R> Hearing Problems No - <R> Use of Sensory Yes Assistive Devices - Sensory Assistive Devices Glasses; Reading only. - <R> Reading Problems No - <R> Communication Problems No - <R> Changes in thought No Process/Behavior Activity-Exercise/Self Care Functional Screen - <R> Ambulation 1 - Requires assistive equipment for ambulation - <R> Transferring 0 - Independent with transfers - <R> Toileting 0- Independent with toileting - <R> Bathing 0- Independent with bathing - <R> Dressing 0- Independent with dressing - <R> Eating 0- Independent with eating - <R> Swallowing None - <R> Fall history within No history of falls last six months - <R> Which of the above Ambulation functional risks had a recent onset or change? Home Equipment - Equipment Used at Home Yes - Equipment Cane Living Environment - Lives with Spouse - Describe living environment House - Any physical barriers in Yes home - Barriers in home Bed and bath are not on the first floor; Number of stairs; Tub/shower is not walk in; 7 Nutrition/Metabolic Diet Information - Diet Regular Nutrition Risk Screen - <R> Nutrition Risk Screen No risk indicators present - Perception of nutritional Good health Dental Information - Dental Care Receives routine dental care - Dental/Oral Status Teeth intact, good condition - Dentures No Sleep/Relaxation Sleep Pattern - <R> Problems Sleeping Yes - Problems Trouble falling asleep; Awakens in the middle of the night Role Relationships Significant Relationships/Roles - What is your most Spouse significant relationship Abuse Risk Screen - <R> QUESTION TO PATIENT: No Are you now or have you ever been in a relationship where you have been abused physically, emotionally or sexually? Coping-Stress Tolerance Coping-Stress - <R> Have you had a recent Yes major change/significant loss/stressor in your life - Major Change/ Loss ; Brother in-law Values/Beliefs/Spiritual Care Values/Beliefs/Spiritual Care - <R> Would you like pastoral Does not wish to have anyone contacted care/clergy/comprehensive advisor notified? Mutuality/Individual Preferences Mutuality/Preferences - <R> What information would None help us give you more personalized care? - <R> What if any limitations None on visitors, TV or phone calls would you like FARNAZ Tmaayo (RN) Authored: General Information, Advance Directive, Health and Illness History, Allergies, Substance Use, Review of Systems, Cognitive Perceptual, Activity- Exercise/Self Care, Nutrition/Metabolic, Sleep/Relaxation, Role Relationships, Coping-Stress Tolerance, Values/Beliefs/Spiritual Care, Mutuality/Individual Preferences documented in this encounter Plan of Treatment Not on filedocumented as of this encounter Visit Diagnoses Not on filedocumented in this encounter Care Teams Granular Operator Relationship Specialty Start Date End Date Ranjith Hughes MD PCP - General 07/11/02 12/17/13 [address] [place] [address] documented as of this encounter
--- OUTSIDE RECORDS SUMMARY | 2022-07-19 23:02 | XMS_ITS | Encounter Summary ---
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 [place] ANTICOAG USE (Primary Dx) [address] [place] [address] Social History Tobacco Use Types Packs/Day Years Used Date Smoking Tobacco: Never Alcohol Use Standard Drinks/Week Comments No 0 (1 standard drink = 0.6 oz pure alcoho l) Sex Assigned at Date Recorded Not on file documented as of this encounter Progress Notes Shahnaz Chambers - 02/27/2006 4:18 PM CDT ANTICOAGULATION FOLLOW-UP CLINIC VISIT Patient Name: Lee Ann Herndon Date: 02/27/2006 SUBJECTIVE: Bleeding Signs/Symptoms: None Thromboembolic Signs/Symptoms: None Medication Changes: YES - Darvocet dc'd/on Aleve/ESTylenol Dietary Changes: NO Bacterial/Viral Infection: NO Missed Coumadin Doses: None Other Concerns: NO ASSESSMENT/PLAN: See: ANTICOAGULATION QIC flow sheet. CR ANTICOAGULATION CLINIC documented in this encounter Plan of Treatment Not on filedocumented as of this encounter Procedures Procedure Name Priority Date/Time Associated Diagnosis Comme nts HCL INR POCT Routine 02/27/2006 Aftercare Long-Term Results for this Anticoag Use procedure are i n the results section . 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
--- OUTSIDE RECORDS SUMMARY | 2022-07-19 23:02 | XMS_ITS | Encounter Summary ---
:1940 Author Organization [place] Address [facility] [place] [address] Care Team Providers Name Role Phone Ranjith Hughes MD Primary Care Provider Encounter Details Date Type Department Care Team Description 02/07/2006 Therapy Visit [place] for Athletic [facility] [place] [facility] FOLLOW[facility] JOINT REPLACEMENT; Medicine - [facility] PT luceroPARDEEP CHOU NT REPLACEMENT [facility] Physical Therapy [address] [facility] [address] [place], [place] [address] Social History Tobacco Use Types Packs/Day Years Used Date Smoking Tobacco: Never Alcohol Use Standard Drinks/Week Comments No 0 (1 standard drink = 0.6 oz pure alcoho l) Sex Assigned at Date Recorded Not on file documented as of this encounter Progress Notes Rudi Tobin - 05/23/2006 8:52 AM CDT Discharge due to patient did not return for further Physical Therapy visits. More [place] - 02/07/2006 12:19 PM CDT Initial evaluation was completed. Please refer to the daily flowsheet for treatment today. documented in this encounter Plan of Treatment Not on filedocumented as of this encounter Procedures Procedure Name Priority Date/Time Associated Diagnosis Comme [facility] Z THERAPEUTIC Routine 02/07/2006 12:21 PM iamAFTERCARE FOLLO WING ACTIVITIES CDT JOINT REPLACEMEN T iamKNEE JOINT REPLACEMENT STATUS ZZC HOT OR COLD PACKS Routine 02/07/2006 12:21 PM iamAFTERCARE FOLLOWING THERAPY CDT JOINT REPLACEMEN T iamKNEE JOINT REPLACEMENT STATUS documented in this encounter Visit Diagnoses Diagnosis iamAFTERCARE FOLLOWING JOINT REPLACEMENT Aftercare following joint replacement iamKNEE JOINT REPLACEMENT STATUS Knee joint replacement by other means documented in this encounter Care Teams Rag Washer Relationship Specialty Start Date End Date Ranjith Hughes MD PCP - General 07/11/02 12/17/13 [address] [place] [address] documented as of this encounter
--- OUTSIDE RECORDS SUMMARY | 2022-07-19 23:02 | XMS_ITS | Encounter Summary ---
:1940 Author Organization [place] Address [address] [place] [address] Care Team Providers Name Role Phone Ranjith Hughes MD Primary Care Provider Encounter Details Date Type Department Care Team Description 03/05/2006 Historic Results INTERFACED REPORT Rozina Feldman MD [facility] [address] [place], [place] [address] (Wo rk) Social History [...] Name Priority Date/Time Associated Comments Diagnosis INR STAT 03/05/2006 5:30 AM Results f or this CDT procedure are i n the results section. HEMOGRAM DIFFERENTIAL STAT 03/05/2006 5:15 AM Results for this AND PLATELET CDT procedure are i n the results section. ERYTHROCYTE STAT 03/05/2006 5:15 AM Results f or this SEDIMENTATION RATE CDT procedure are in AUTO the results section. CRP INFLAMMATION STAT 03/05/2006 5:15 AM Resul ts for this CDT procedure are i n the results section. documented in this encounter Results (ABNORMAL) INR (03/05/2006 5:30 AM CDT) P athologist Signature INR 2.69 (H) 0.86 - 1.14 [facility] Specimen Anatomical Collection Method Collection Time Receive d Time (Source) Location / / Volume Laterality 03/05/2006 5:30 AM 6 5:38 CDT AM CDT Juan Daniel Feldman MD LAB - BLOOD ORDERABLES Performing Organization Address City/State/ZIP Code Phon e Number [facility] Hemogram differential and platelet (03/05/2006 5:15 AM CDT) [facility] Method Time Signature MCV 95 78 - 100 [facility] fl MCH 30.5 26.5 - [facility] 33.0 pg MCHC 32.2 32.0 - [facility] 36.0 g/dL RDW 12.7 10.0 - [facility] 15.0 % WBC 5.3 4.0 - [facility] 11.0 10e9/L RBC Count 4.18 3.8 - 5.2 [facility] 10e12/L Hemoglobin 12.8 11.7 - [facility] 15.7 g/dL Hematocrit 39.7 35.0 - [facility] 47.0 % % Neutrophils 48 40 - 75 % [facility] % Lymphocytes 38 20 - 48 % [facility] % Monocytes 8 0 - 12 % [facility] % Eosinophils 6 0 - 6 % [facility] % Basophils 0 0 - 2 % [facility] Platelet Count 152 150 - 450 [facility] 10e9/L Absolute 2.5 1.6 - 8.3 [facility] Neutrophil 10e9/L Absolute 2.1 0.8 - 5.3 [facility] Lymphocytes 10e9/L Absolute 0.4 0.0 - 1.3 [facility] Monocytes 10e9/L Absolute 0.3 0.0 - 0.7 [facility] Eosinophils 10e9/L Absolute 0.0 0.0 - 0.2 [facility] Basophils 10e9/L Diff Method Automated [facility] Method Specimen Anatomical Collection Method Collection Time Receive d Time (Source) Location / / Volume Laterality 03/05/2006 5:15 AM 6 5:15 CDT AM CDT Juan Daniel Feldman MD LAB - BLOOD ORDERABLES Performing Organization Address City/State/ZIP Code Phon e Number [facility] Erythrocyte sedimentation rate auto (03/05/2006 5:15 AM CDT) athologist Signature Sed Rate 10 0 - 30 mm/h [facility] Specimen Anatomical Collection Method Collection Time Receive d Time (Source) Location / / Volume Laterality 03/05/2006 5:15 AM 6 5:15 CDT AM CDT Juan Daniel Feldman MD LAB - BLOOD ORDERABLES Performing Organization Address City/[facility] Code Phon e Number [facility] CRP inflammation (03/05/2006 5:15 AM CDT) P athologist Signature CRP Inflammation 3.4 0.0 - 8.0 [facility] mg/L Specimen Anatomical Collection Method Collection Time Receive d Time (Source) Location / / Volume Laterality 03/05/2006 5:15 AM 6 5:15 CDT AM CDT Juan Daniel Feldman MD LAB - BLOOD ORDERABLES Performing Organization Address City/[facility] Phon e Number [facility] documented in this encounter Visit Diagnoses Not on filedocumented in this encounter Care Teams Playground Aide Relationship Specialty Start Date End Date Ranjith Hughes MD PCP - General 07/11/02 12/17/13 [address] [place] [address] documented as of this encounter
--- OUTSIDE RECORDS SUMMARY | 2022-07-19 23:02 | XMS_ITS | Encounter Summary ---
:1940 Author Organization [place] Address [address] [place] [address]. [place] [address] Care Team Providers Name Role Phone Ranjith Hughes MD Primary Care Provider Reason for Visit Reason Comments Pre-Op Exam total left knee replacement Encounter Details Date Type Department Care Team Description 02/12/2007 Office Visit [facility] Ranjith Hughes, PREOP EXAM OTHER Clinic Adri Reynoso MD SPECIFIED (Primary Dx) [address] [facility] [id number] [place] [id number] Social History Tobacco Use Types Packs/Day Years Used Date Smoking Tobacco: Never Alcohol Use Standard Drinks/Week Comments No 0 (1 standard drink = 0.6 oz pure alcoho l) Sex Assigned at Date Recorded Not on file documented as of this encounter Last Filed Vital Signs Vital Sign Reading Time Taken Comments Blood Pressure 130/80 02/12/2007 4:00 PM CDT Pulse 76 02/12/2007 4:00 PM CDT Temperature 37 ??C (98.6 ??F) 02/12/2007 4:00 PM CDT Respiratory Rate - - Oxygen Saturation - - Inhaled Oxygen Concentration - - Weight 105.2 kg (232 lb) 02/12/2007 4:00 PM CDT Height 160 cm (5' 3) 02/12/2007 4:00 PM CDT Body Mass Index 41.1 02/12/2007 4:00 PM CDT documented in this encounter Progress Notes Julia Gasca - 02/12/2007 4:13 PM CDT PRE-OP EVALUATION: Today's date: 02/12/2007 Lee Ann Herndon (: 1940) presents for pre-operative evaluation as requested by Dr. Theodore Palmer. She requires evaluation and anesthesia clearance prior to undergoing surgery/procedure for treatment of left knee pain . Proposed procedure: total left knee replacement Date of Surgery/ Procedure: 02/18/2007 Time of Surgery/ Procedure: 12:00 [facility] Facility: [facility] Primary Physician: Saul Type of Anesthesia Anticipated: Spinal History of anesthesia complications: NONE History of abnormal bleeding: YES: Personal HX following last surgery History of blood transfusions: NO Patient has a Health Care Directive or Living Will: NO PREOP QUESTIONNAIRE 1- NO - Do you ever have any pain or discomfort in your chest? 2- NO - Have you ever had a severe pain across the front of your chest lasting for half an hour or more? 3- NO - Do you have swelling in your [...] Do you usually have a cough? 9- NO - Do you sometimes get pains [...] have any prosthetic heart valves or joints? Right total knee replacement 17-NO - Is there any chance that [...] 10/23/2003 Past Medical History Diagnosis Date ??? ESOPHAGEAL [...] Current outpatient prescriptions Medication Sig ??? LEXAPRO 10 MG OR TABS ONE DAILY ??? CELEBREX 200 MG OR CAPS ONE DAILY ??? PRILOSEC 20 MG OR CPDR 1 TAB PO QD (Once per day) OTC products: no recent use of OTC ASA, NSAIDS or Steroids Allergies Allergen Reactions ??? Penicillins ??? Cephalosporins keflex ??? Erythromycin ??? Tetracyclines ??? Sympathomimetics resperidol ??? Ethanol zoloft Latex Allergy: NO History Substance Use Topics ??? Tobacco Use: Never ??? Alcohol Use: No History Drug Use Not on file REVIEW OF SYSTEMS: C: NEGATIVE for fever, chills, change in weight E/M: NEGATIVE for ear, mouth and throat problems R: NEGATIVE for significant cough or SOB CV: NEGATIVE for chest pain, palpitations or peripheral edema MUSCULOSKELETAL: Per surgery EXAM: BP 130/80 Pulse 76 Temp (Src) 98.6 (Oral) Ht 5' 3 (1.60m) Wt 232 lbs (105.2kg) LMP Postmenopausal GENERAL APPEARANCE: healthy, alert and [...] normal, mentation intact and speech normal DIAGNOSTICS: HGB Date Value Range Status 02/12/2007 13.9 11.7-15.7 (g/dL) Final ] EKG was done. Sinus rhythum With no evidence of acute changes. IMPRESSION: Clear for surgery, left knee replacement. She has no chest pain. There is no evidence of congestive heart failure. Her pulmonary status as normal. For above listed surgery and anesthesia: Patient is at MODERATE risk for surgery/procedure and perioperative/procedure complications. RECOMMENDATIONS: Approval given to proceed with proposed procedure, without further diagnostic evaluation. Signed Electronically by: Ranjith Hughes M.D. Copy of this evaluation report is provided to requesting physician. documented in this encounter Nursing Notes 02/12/2007 4:00 PM CDT >> JULIA GASCA 02/12/2007 4:17 pm Patient presents with: Pre-Op Exam - total left knee replacement Initial BP 130/80 Pulse 76 Temp (Src) 98.6 (Oral) Ht 5' 3 (1.60m) Wt 232 lbs (105.2kg) LMP Postmenopausal Body mass index is 41.11 kg/(m^2).. BP completed using cuff size: large Julia Gasca SOLUTIONS OPERATOR documented in this encounter Plan of Treatment Not on filedocumented as of this encounter Procedures Procedure Name Priority Date/Time Associated Comments Diagnosis ZZC Routine 02/12/2007 4:36 PM Preop Exam Other ELECTROCARDIOGRAM, CDT Specified COMP W/READ HCL HEMOGLOBIN Routine 02/12/2007 4:25 PM Preop Exam Other Res ults for this NONLAB CDT Specified procedure are i n the results section. documented in this encounter Results ELECTROCARDIOGRAM, COMP W/READ (02/12/2007 4:36 PM CDT) Narrative This result has an attachment that is no t available. Ranjith Hughes MD EKG TECHNICAL HGB (02/12/2007 4:25 PM CDT) athologist Signature Hemoglobin 13.9 11.7 - 15.7 [facility] g/dL [facility] Specimen Anatomical Collection Method Collection Time Receive d Time (Source) Location / / Volume Laterality 02/12/2007 4:25 PM 7 4:30 CDT PM CDT Ranjith Hughes MD LABORATORY Performing Organization Address City/State/ZIP Code Phon e Number [facility] [address] [place] [address] [facility] documented in this encounter Visit Diagnoses Diagnosis Other specified pre-operative examinatio n - Primary documented in this encounter Care Teams Laundry Laborer Relationship Specialty Start Date End Date Ranjith Hughes MD PCP - General 07/11/02 12/17/13 [address] [place] [address] documented as of this encounter
--- OUTSIDE RECORDS SUMMARY | 2022-07-19 23:02 | XMS_ITS | Encounter Summary ---
:1940 Author Organization [place] Address [address] [place] [address] Care Team Providers Name Role Phone Ranjith Hughes MD Primary Care Provider Encounter Details Date Type Department Care Team Description 12/21/2006 Results Only [facility] Shemar Chen MD Hospital Results [facility] [address] [place] [address] (Wo rk) Social History [...] Procedure Name Priority Date/Time Associated Diagnosis Comme [facility] CT HEAD WO Routine 12/21/2006 6:42 PM Results for this CONTRAST CDT procedure are i n the results section. documented in this encounter Results CT SCAN HEAD/BRAIN (12/21/2006 6:42 PM CDT) Anatomical Region Laterality Modality Other Specimen (Source) Anatomical Collection Method Collection Time Re ceived Time Location / / Volume Laterality 12/21/2006 6:42 PM CDT Impressions 12/21/2006 6:46 PM CDT EXAM: ?? CT HEAD W/O CONTRAST* CLINICAL INFORMATION: ? Headache, ?? CONTRAST: ??noncontrast COMPARISON: ??none FINDINGS: 1. ??Brain parenchyma and ventricles are within normal limits. ? 2. ??There is some sphenoid sinus diseas e. ? IMPRESSION: ??Sphenoid sinus disease. Shemar Chen MD SPECIAL IMAGING STUDIES documented in this encounter Visit Diagnoses Not on filedocumented in this encounter Care Teams Podiatric Aide Relationship Specialty Start Date End Date Ranjith Hughes MD PCP - General 07/11/02 12/17/13 [address] [place] [address] documented as of this encounter
--- OUTSIDE RECORDS SUMMARY | 2022-07-19 23:02 | XMS_ITS | Encounter Summary ---
:1940 Author Organization [place] Address [address] [place] [address] Care Team Providers Name Role Phone Ranjith Hughes MD Primary Care Provider Encounter Details Date Type Department Care Team Description 03/05/2006 Results Only [facility] Juan Daniel Feldman, Hospital Results MD [facility] [address] [place], [place] [address] (Wo rk) Social History [...] Name Priority Date/Time Associated Comments Diagnosis HC X-RAY KNEE 3 Routine 03/05/2006 6:10 AM Result s for this VIEWS CDT procedure are i n the results section. HC DUPLEX EXTREMITY Routine 03/05/2006 5:57 AM Re sults for this VENOUS, LIMITED CDT procedure ar e in UNILATERAL the results section. documented in this encounter Results X-RAY KNEE 3 VIEW (03/05/2006 6:10 AM CDT) Anatomical Region Laterality Modality Other Specimen (Source) Anatomical Collection Method Collection Time Re ceived Time Location / / Volume Laterality 03/05/2006 6:10 AM CDT Impressions 03/06/2006 11:28 AM CDT THREE VIEW RIGHT KNEE ? 03/05/2006 ?? CLINICAL HISTORY: ??Knee pain. ??Knee re placement 01/31/2006 ?? FINDINGS: ??Right total knee arthroplast y. ??Alignment appears unchanged from the prior exam of 006. ? Juan Daniel Feldman MD GENERAL IMAGING DUPLEX EXTREM VENOUS,UNI OR LTD (03/05/2006 5:57 AM CDT) Anatomical Region Laterality Modality Other Specimen (Source) Anatomical Collection Method Collection Time Re ceived Time Location / / Volume Laterality 03/05/2006 5:57 AM CDT Impressions 03/05/2006 4:14 PM CDT ULTRASOUND DEEP VENOUS SYSTEM RIGHT LEG - 03/05/2006 ?? HISTORY: Knee replacement with pain. ?? FINDINGS: Negative. No evidence for DVT. Juan Daniel Feldman MD SPECIAL IMAGING STUDIES documented in this encounter Visit Diagnoses Not on filedocumented in this encounter Care Teams Stallion Manager Relationship Specialty Start Date End Date Ranjith Hughes MD PCP - General 07/11/02 12/17/13 [address] [place] [address] documented as of this encounter
--- OUTSIDE RECORDS SUMMARY | 2022-07-19 23:02 | XMS_ITS | Encounter Summary ---
:1940 Author Organization [facility] Address [address] [place] [address] Care Team Providers Name Role Phone Ranjith Hughes MD Primary Care Provider Encounter Details Date Type Department Care Team Description 02/17/2007 [facility] [address] [place]OPED[place], [place] [address] [facility] [id number] [address] [place], [place] [address] (Wo rk) Social History [...] Priority Date/Time Associated Comments Diagnosis INR Routine 02/17/2007 9:38 AM Results f or this CDT procedure are i n the results section. PARTIAL THROMBOPLASTIN Routine 02/17/2007 9:38 AM Results for this TIME CDT procedure are i n the results section. HEMOGLOBIN Routine 02/17/2007 9:38 AM Results f or this CDT procedure are i n the results section. ABO/RH TYPE AND SCREEN Routine 02/17/2007 9:38 AM Results for this CDT procedure are i n the results section. BASIC METABOLIC PANEL Routine 02/17/2007 9:38 AM Results for this CDT procedure are i n the results section. documented in this encounter Results (ABNORMAL) Basic metabolic panel (02/17/2007 9:38 AM CDT) Analysis Performed At Patho logist Time Signature Sodium 142 133 - 144 [facility] mmol/L Potassium 4.3 3.4 - 5.3 [facility] mmol/L Chloride 107 94 - 109 [facility] mmol/L Carbon Dioxide 27 20 - 32 [facility] mmol/L Glucose 88 60 - 99 [facility] mg/dL Urea Nitrogen 15 7 - 30 [facility] mg/dL Creatinine 0.95 0.60 - [facility] 1.30 mg/dL GFR Estimate 63 >60 [facility] mL/min/1.7 m2 GFR Estimate If 76 >60 [facility] Black mL/min/1.7 m2 Calcium 10.8 (H) 8.5 - 10.4 [facility] mg/dL Anion Gap 8 6 - 17 [facility] mmol/L Specimen Anatomical Collection Method Collection Time Receive d Time (Source) Location / / Volume Laterality 02/17/2007 9:38 AM 7 9:34 CDT AM CDT Theodore Palmer MD LAB - BLOOD ORDERABLES Performing Organization Address City/[facility] Phon e Number MISYS Hemoglobin (02/17/2007 9:38 AM CDT) P athologist Signature Hemoglobin 14.3 11.7 - 15.7 [facility] g/dL Specimen Anatomical Collection Method Collection Time Receive d Time (Source) Location / / Volume Laterality 02/17/2007 9:38 AM 7 9:34 CDT AM CDT Theodore Palmer MD LAB - BLOOD ORDERABLES Performing Organization Address City/[facility] Phon e Number MISYS INR (02/17/2007 9:38 AM CDT) P athologist Signature INR 0.97 0.86 - 1.14 [facility] Comment: Results confirmed by repeat yanira t Specimen Anatomical Collection Method Collection Time Receive d Time (Source) Location / / Volume Laterality 02/17/2007 9:38 AM 7 9:34 CDT AM CDT Theodore Palmer MD LAB - BLOOD ORDERABLES Performing Organization Address City/[facility]/ZIP [facility] Phon e Number [facility] Partial thromboplastin time (02/17/2007 9:38 AM CDT) P athologist Signature PTT 28 22 - 37 sec [facility] Specimen Anatomical Collection Method Collection Time Receive d Time (Source) Location / / Volume Laterality 02/17/2007 9:38 AM 7 9:34 CDT AM CDT Theodore Palmer MD LAB - BLOOD ORDERABLES Performing Organization Address [facility] Phon e Number MISYS ABO/Rh type and screen (02/17/2007 9:38 AM CDT) Analysis Performed At Patho logist Time Signature ABO A [facility] RH(D) Pos [facility] Antibody Neg [facility] Screen Specimen 02/20/2007 [facility] Expires Specimen Anatomical Collection Method Collection Time Receive d Time (Source) Location / / Volume Laterality 02/17/2007 9:38 AM 7 9:34 CDT AM CDT Theodore Palmer MD LAB - BLOOD BANK TEST ORDER Performing Organization Address [facility] Phon e Number MISYS documented in this encounter Visit Diagnoses Not on filedocumented in this encounter Care Teams Track Laminating Machine Tender Relationship Specialty Start Date End Date Ranjith Hughes MD PCP - General 07/11/02 12/17/13 [address] [place] [address] documented as of this encounter
--- OUTSIDE RECORDS SUMMARY | 2022-07-19 23:02 | XMS_ITS | Encounter Summary ---
:1940 Author Organization [facility] Address [address] [place] [address] Care Team Providers Name Role Phone Ranjith Hughes MD Primary Care Provider Encounter Details Date Type Department Care Team Description 03/05/2006 Emergency room Juan Daniel Reyna MD EMERGENCY PHYSIC [facility] [address] [place], [place] [address] (Wo rk) Social History Tobacco Use Types Packs/Day Years Used Date Smoking Tobacco: Never Alcohol Use Standard Drinks/Week Comments No 0 (1 standard drink = 0.6 oz pure alcoho l) Sex Assigned at Date Recorded Not on file documented as of this encounter Progress Notes Juan Daniel Reyna MD - 03/08/2006 6:35 AM CDT FINAL CHIEF COMPLAINT: The patient is a 65-year-old female with chief complaint of right knee pain and redness. HISTORY OF PRESENT ILLNESS: Brady Escobar is a 65-year-old female with a known history of depression. The patient is status post right knee replacement on 01/31/06. This was done by Dr. Theodore Palmer. The patient reports to the emergency room at 5:00 a.m. as she has noticed increasing pain over the course of last 4 or 5 days. She has had no chest pain or shortness of breath. She has been on Coumadin. She was told to stop this by Dr. Palmer. She has noticed increased pain in her right knee and shehas noticed redness and warmth and she reports to emergency room at 5:00 a.m. as she has had worsening pain this evening and could not sleep. PAST MEDICAL HISTORY: Depression, knee surgery 01/31/06. MEDICATIONS: Coumadin, last dose on Sunday, Celebrex stopped on Sunday, Darvocet which she is taking for pain. ALLERGIES: The patient is allergic to multiple medications including penicillin and erythromycin and cephalosporins. FAMILY HISTORY: Negative. SOCIAL HISTORY: Here with daughter. REVIEW OF SYSTEMS: No chest pain, no shortness of breath, no trauma to the knee. All other systems negative except as above. PHYSICAL EXAMINATION: GENERAL: This is a well-appearing 65-year-old female, seated upright. VITAL SIGNS: Blood pressure 130/81, pulse 78, respirations 20, oral temperature 98.0 and room air saturation 98%. HEENT: Head atraumatic and normocephalic. ABDOMEN: Soft and nontender femoral pulses intact and symmetric. EXTREMITIES: Right knee, there is midline scar over the right knee joint consistent with at a totalright knee replacement. The sutures are removed as well as joelle. The wound is intact. There is nodehiscence. There is confluent erythema over the lateral aspect of the right knee up to the mid thigh. There is no streaking or lymphangitis. It is slightly warm to the touch. There is no asymmetric swelling. No calf tenderness. There is intact dorsalis pedis and posterior tibial as well as popliteal pulse, symmetric with the left side consistent with a normal neurovascular exam. EMERGENCY DEPARTMENT COURSE: Due to complaints of knee pain and knee redness, I discussed symptoms with the patient. Ultimately I was concerned for infection. I did send lab tests on the patient. Thisincluded CBC, ESR and CRP, all of which were normal. The patient did have an INR sent. This was 2.76. The patient was sent for x-ray of the right knee that showed no change from her previous x-ray of 01/31/06. The patient was sent for ultrasound even though she was anticoagulated to rule out DVT. This was also negative. I did return to discuss symptoms with the patient. I am most likely convinced this is more likely to be bleeding related as there is redness and warmth but there was no trauma. Due to the fact that she is anticoagulated, we will discharge the patient. She is due to followup with Dr. Palmer today. We will have her reevaluated there. We will discharge with followup. I did offer patient with different pain medications, she refused. She felt Darvocet was enough. PLAN: Ice and elevation of the right knee. Darvocet p.r.n. pain. Follow with Dr. Palmer today for reevaluation. DISCHARGE DIAGNOSES: 1. Right knee pain. 2. Probable right knee hemarthrosis. Electronically signed on 03/08/2006 06:34 by JUAN DANIEL REYNA MD MT: [id number] Name: BRADY ESCOBAR MRN: [id number] Account: [id number] : 1940 Visit Date: 03/05/2006 Document: [id number] Juan Daniel Reyna MD - 03/07/2006 7:47 AM CDT PRELIMINARY CHIEF COMPLAINT: The patient is a 65-year-old female with chief complaint of right knee pain and redness. HISTORY OF PRESENT ILLNESS: Brady Escobar is a 65-year-old female with a known history of depression. The patient is status post right knee replacement on 01/31/06. This was done by Dr. Theodore Palmer. The patient reports to the emergency room at 5:00 a.m. as she has noticed increasing pain over the course of last 4 or 5 days. She has had no chest pain or shortness of breath. She has been on Coumadin. She was told to stop this by Dr. Palmer. She has noticed increased pain in her right knee and shehas noticed redness and warmth and she reports to emergency room at 5:00 a.m. as she has had worsening pain this evening and could not sleep. PAST MEDICAL HISTORY: Depression, knee surgery 01/31/06. MEDICATIONS: Coumadin, last dose on Sunday, Celebrex stopped on Sunday, Darvocet which she is taking for pain. ALLERGIES: The patient is allergic to multiple medications including penicillin and erythromycin and cephalosporins. FAMILY HISTORY: Negative. SOCIAL HISTORY: Here with daughter. REVIEW OF SYSTEMS: No chest pain, no shortness of breath, no trauma to the knee. All other systems negative except as above. PHYSICAL EXAMINATION: GENERAL: This is a well-appearing 65-year-old female, seated upright. VITAL SIGNS: Blood pressure 130/81, pulse 78, respirations 20, oral temperature 98.0 and room air saturation 98%. HEENT: Head atraumatic and normocephalic. ABDOMEN: Soft and nontender femoral pulses intact and symmetric. EXTREMITIES: Right knee, there is midline scar over the right knee joint consistent with at a totalright knee replacement. The sutures are removed as well as joelle. The wound is intact. There is nodehiscence. There is confluent erythema over the lateral aspect of the right knee up to the mid thigh. There is no streaking or lymphangitis. It is slightly warm to the touch. There is no asymmetric swelling. No calf tenderness. There is intact dorsalis pedis and posterior tibial as well as popliteal pulse, symmetric with the left side consistent with a normal neurovascular exam. EMERGENCY DEPARTMENT COURSE: Due to complaints of knee pain and knee redness, I discussed symptoms with the patient. Ultimately I was concerned for infection. I did send lab tests on the patient. Thisincluded CBC, ESR and CRP, all of which were normal. The patient did have an INR sent. This was 2.76. The patient was sent for x-ray of the right knee that showed no change from her previous x-ray of 01/31/06. The patient was sent for ultrasound even though she was anticoagulated to rule out DVT. This was also negative. I did return to discuss symptoms with the patient. I am most likely convinced this is more likely to be bleeding related as there is redness and warmth but there was no trauma. Due to the fact that she is anticoagulated, we will discharge the patient. She is due to followup with Dr. Palmer today. We will have her reevaluated there. We will discharge with followup. I did offer patient with different pain medications, she refused. She felt Darvocet was enough. PLAN: Ice and elevation of the right knee. Darvocet p.r.n. pain. Follow with Dr. Palmer today for reevaluation. DISCHARGE DIAGNOSES: 1. Right knee pain. 2. Probable right knee hemarthrosis. JUAN DANIEL REYNA MD MT: [id number] Name: BRADY ESOCBAR MRN: [id number] Account: [id number] : 1940 Visit Date: 03/05/2006 Document: [id number] documented in this encounter Plan of Treatment Not on filedocumented as of this encounter Visit Diagnoses Not on filedocumented in this encounter Care Teams Mechanical Engineering Intern Relationship Specialty Start Date End Date Ranjith Hughes MD PCP - General 07/11/02 12/17/13 [address] [place] [address] documented as of this encounter
--- OUTSIDE RECORDS SUMMARY | 2022-07-19 23:02 | XMS_ITS | Encounter Summary ---
:1940 Author Organization [facility] Address [address] [place] [address]. [place] [address] Care Team Providers Name Role Phone Ranjith Boo MD Primary Care Provider Reason for Visit Reason Comments Pre-Op Exam right total knee repair Encounter Details Date Type Department Care Team Description 01/24/2006 Office Visit [facility] Ranjith Boo, PREOP EXAM OTHER Clinic Adri Reynoso MD SPECIFIED (Primary Dx) [address] [facility] [address] [place] [phone] [id number] Social History Tobacco Use Types Packs/Day Years Used Date Smoking Tobacco: Never Alcohol Use Standard Drinks/Week Comments No 0 (1 standard drink = 0.6 oz pure alcoho l) Sex Assigned at Date Recorded Not on file documented as of this encounter Last Filed Vital Signs Vital Sign Reading Time Taken Comments Blood Pressure 120/70 01/24/2006 1:15 PM CDT Pulse 80 01/24/2006 1:15 PM CDT Temperature 36.9 ??C (98.5 ??F) 01/24/2006 1:15 PM CDT Respiratory Rate - - Oxygen Saturation - - Inhaled Oxygen Concentration - - Weight 101.6 kg (224 lb) 01/24/2006 1:15 PM CDT Height 162.6 cm (5' 4) 01/24/2006 1:15 PM CDT Body Mass Index 38.45 01/24/2006 1:15 PM CDT documented in this encounter Progress Notes Ravin, Julia - 01/24/2006 1:11 PM CDT PRE-OP CONSULTATION: Lee Ann Herndon is referred by Dr. Palmer for a pre-op consultation. She requires evaluation andanesthesia clearance prior to undergoing surgery for right total knee repair . Date of Surgery: 01/31/2006 Hospital/Surgical Facility: [facility] Primary Physician: Saul Type of Anesthesia Anticipated: General History of anesthesia complications: NONE History of abnormal bleeding : NONE History of blood tranfusions NO If applicable, last menstrual period: No LMP date recorded. Reason: Postmenopausal. PREOP QUESTIONNAIRE: 1- NO - Do you ever have [...] you snore or stop breathing at night? 16-NO - Do you have any prosthetic heart valves or joints? 17-NO - Is there any chance that you may be ? Do you have a Health Care Directive or Living Will: NO PROBLEM LIST: Patient Active Problem List Diagnoses Code ??? CONGESTIVE HEART FAILURE, UNSPEC 428.0 ??? EDEMA 782.3 ??? DEPRESSIVE DISORDER NEC 311 ??? JOINT PAIN-LOWER LEG 719.46 ??? GENERAL OSTEOARTHROSIS 715.00 ??? MED EXAM NEC-ADMIN PURP V70.3 PAST MEDICAL HISTORY: Past Medical History Diagnosis Date ??? ESOPHAGEAL REFLUX ??? DEPRESSIVE DISORDER NEC PAST SURGICAL HISTORY: Past Surgical History Procedure Date ??? Nonspecific procedure s/p x 2, spAb x 1 ??? Nonspecific procedure s/p appendectomy ??? Nonspecific procedure s/p D&C after spAb CURRENT MEDICATIONS: Current outpatient prescriptions Medication Sig ??? TYLENOL ARTHRITIS PAIN 650 MG OR TBCR 2 TABLETS EVERY 8 HOURS NEEDED ??? PRILOSEC 20 MG OR CPDR 1 TAB PO QD (Once per day) ??? PAXIL CR 12.5 MG OR TB24 1 TABLET EVERY MORNING ??? PIROXICAM 20 MG OR CAPS 1 CAPSULE DAILY ??? ULTRAM 50 MG OR TABS 1 po bid Recent use of: No recent use of ASA, NSAIDS or Steroids Over the counter vitamins, herbal, and other supplements: none ALLERGIES: Allergies as of 01/24/2006 - reviewed 01/24/2006 Allergen Reaction Noted ??? Penicillins 10/23/2003 ??? Cephalosporins 10/23/2003 ??? Erythromycin 10/23/2003 ??? Tetracyclines 10/23/2003 ??? Sympathomimetics 10/23/2003 ??? Ethanol 10/23/2003 Latex Allergy: NO HABITS: ======= History Substance Use Topics ??? Tobacco Use: Never ??? Alcohol Use: No History Drug Use Not on file REVIEW OF SYSTEMS: NEGATIVE for fever, chills, change in weight NEGATIVE for ear, mouth and throat problems NEGATIVE for significant cough or SOB NEGATIVE for chest pain, palpitations or peripheral edema MUSCULOSKELETAL: ABOVE NEURO: NEGATIVE for weakness, dizziness or paresthesias EXAM: ===== BP 120/70 Pulse 80 Temp (Src) 98.5 (Oral) Ht 5' 4 (1.63m) Wt 224 lbs (101.6kg) LMP Postmenopausal GENERAL APPEARANCE: healthy, alert and [...] or masses and bowel sounds normal MS: PER SURGERY NEURO: Normal strength and tone, sensory exam grossly normal, mentation intact and speech normal DIAGNOSTICS: Not indicated HGB Date Value Range Status 01/24/2006 14.1 11.7-15.7 (g/dL) Final ] IMPRESSION: CLEAR FOR SURGERY; NO EVIDENCE OF CHF, CARDIAC WORKUP IN . SHE IS CURRENTLY WITH NO SYMPTOMS.. KNEE PAIN INCREASING , XRAY BONE AND BONE. KNEE REPLACEMENT. For above listed surgery and anesthesia: Patient is MODERATE risk for surgery and perioperative complications. RECOMMENDATIONS: Below recommendations were reviewed with patient Approval given to proceed with proposed procedure, without further diagnostic evaluation. Signed Electronically by: RANJITH BOO MD A copy of this consultation has been provided to the referring provider. documented in this encounter Nursing Notes 01/24/2006 1:15 PM CDT >> JULIA GASCA 01/24/2006 1:14 pm Patient presents with: Pre-Op Exam - right total knee repair Initial BP 120/70 Pulse 80 Temp (Src) 98.5 (Oral) Ht 5' 4 (1.63m) Wt 224 lbs (101.6kg) LMP Postmenopausal Body mass index is 38.43 kg/(m^2).. 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 documented in this encounter Results ELECTROCARDIOGRAM, COMP W/READ (01/24/2006 1:48 PM CDT) Narrative This result has an attachment that is no t available. Ranjith Boo MD EKG TECHNICAL HGB (01/24/2006 1:35 PM CDT) athologist Signature Hemoglobin 14.1 11.7 - 15.7 [facility] g/dL [facility] LAB Specimen Anatomical Collection Method Collection Time Receive d Time (Source) Location / / Volume Laterality 01/24/2006 1:35 PM 6 1:37 CDT PM CDT Ranjith Boo MD LABORATORY Performing Organization Address City/State/ZIP Code Phon e Number [facility] [address] [place] [address] [facility] documented in this encounter Visit Diagnoses Diagnosis Other specified pre-operative examinatio n - Primary documented in this encounter Care Teams Family Program Specialist Relationship Specialty Start Date End Date Ranjith Boo MD PCP - General 07/11/02 12/17/13 [address] [place] [address] documented as of this encounter
--- OUTSIDE RECORDS SUMMARY | 2022-07-19 23:02 | XMS_ITS | Encounter Summary ---
:1940 Author Organization [facility] Address [address] [place] [address] Care Team Providers Name Role Phone Ranjith Hughes MD Primary Care Provider Encounter Details Date Type Department Care Team Description 01/31/2006 Consultation [facility] Alesia Logan MD [address] [phone] (W ork) [address] [phone] Social History Tobacco Use Types Packs/Day Years Used Date Smoking Tobacco: Never Alcohol Use Standard Drinks/Week Comments No 0 (1 standard drink = 0.6 oz pure alcoho l) Sex Assigned at Date Recorded Not on file documented as of this encounter Progress Notes Vic Logan - 02/01/2006 4:53 AM CDT PRELIMINARY DATE OF CONSULTATION: 01/31/2006 HISTORY OF PRESENT ILLNESS: The patient is a 65-year-old female who underwent right totalknee arthroplasty today 01/31/2006 for 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 We are asked to provide medical consultation and followup for this patient in her postoperative care. PAST MEDICAL HISTORY: 1. Osteoarthritis. 2. Depression. 3. Congestive heart failure. 4. Esophageal reflux. PAST SURGICAL HISTORY: 1. Appendectomy. 2. Dilatation and curettage after a spontaneous miscarriage. ALLERGIES: Penicillin, cephalosporins, macrolides, tetracycline, sympathomimetics, alcohol. CURRENT MEDICATIONS: 1. Tylenol 1,300 mg every eight hours as needed. 2. Prilosec 20 mg p.o. every day. 3. Paxil-CR 12.5 mg p.o. q.a.m. 4. Piroxicam 20 mg p.o. every day. 5. Ultram 50 mg p.o. b.i.d. SOCIAL HISTORY: This patient has no history of tobacco or regular alcohol use. REVIEW OF SYSTEMS: Aside from her right knee pain, her Review of Systems was reportedly negative during her preoperative evaluation. CARDIAC: She has had cardiac evaluation in 2003 and remains asymptomatic. Evaluation in 11/2003 by [facility] was essentially a gated myocardial perfusion scintography with intravenous pharmacologic vasodilatation. During this adenosine stress test her EKG portion was negative for ischemia, and she showed no significant perfusion defects during the perfusion scintography. The ejection fraction was noted to be normal, if not somewhat hyperdynamic at 75%. This seemed to have been done at the time when she presented to her physicians with congestive heart failure, and there was reported paracontractility of her heart on echocardiogram. PHYSICAL EXAMINATION: VITAL SIGNS: She is afebrile with a temperature of 99.3 orally, heart rate 79 beats/minute, blood pressure 102/50, respiratory rate 16, room air oxygen saturation 93%. GENERAL: In her postoperative state the patient seems to be reasonably comfortable. She defines her pain on a scale of 1-10 as a 6/10prior to intervention and a 3/10 after intervention. Her physical exam is otherwise unchanged from that of her preoperative history and physical performed by Dr. Hughes. IMPRESSION/PLAN: This woman is immediately status post right total knee arthroplasty. Her preoperative hemoglobin measured on 01/24/2006 at her primary care clinic was 14.1 gm/dcl and when measured [id number] hrs on 01/30/2006 noted to be 13.7 gm/dcl. She appears to be doing reasonably well in her postoperative state, and we will continue to follow for medical management. All of her preoperative medications have been resumed with the exception of piroxicam. The patient will be put on DVT prophylaxis per Orthopedic Surgery protocol using Coumadin. Anticoagulation dosing of Coumadin is to be managed bythe primary service which is Dr. Theodore Palmer's orthopedic service. VIC LOGAN MD MT: [id number] Name: BRADY ESCOBAR Account: [id number] : 1940 Consult Date: 01/31/2006 Document: [id number] cc: Ranjith Palmer MD documented in this encounter Plan of Treatment Not on filedocumented as of this encounter Visit Diagnoses Not on filedocumented in this encounter Care Teams Operations Officer Relationship Specialty Start Date End Date Ranjith Hughes MD PCP - General 07/11/02 12/17/13 [address] [place] [address] documented as of this encounter
--- OUTSIDE RECORDS SUMMARY | 2022-07-19 23:02 | XMS_ITS | Encounter Summary ---
:1940 Author Organization [place] Address [address] [place] [address] Care Team Providers Name Role Phone Ranjith Hughes MD Primary Care Provider Encounter Details Date Type Department Care Team Description 01/31/2006 Results Only [facility] Theodore Palmer MD Hospital Results [facility] [address] [place], [place] [address] (Wo rk) Social History [...] Procedure Name Priority Date/Time Associated Diagnosis Comme [facility] X-RAY KNEE 1-2 Routine 01/31/2006 11:09 AM Res ults for this VIEWS CDT procedure are i n the results section. documented in this encounter Results X-RAY KNEE 1 OR 2 VIEW (01/31/2006 11:09 AM CDT) Anatomical Region Laterality Modality Other Specimen (Source) Anatomical Collection Method Collection Time Re ceived Time Location / / Volume Laterality 01/31/2006 11:09 AM CDT Impressions 01/31/2006 12:44 PM CDT 2 VIEW PORTABLE RIGHT KNEE - 01/31/2006 ?? HISTORY: Postoperative. ?? FINDINGS: Total prosthetic right knee re placement is present in normal alignment. Surgical drain is in p lace. Theodore Palmer MD GENERAL IMAGING documented in this encounter Visit Diagnoses Not on filedocumented in this encounter Care Teams Lead Retail Sales Associate Relationship Specialty Start Date End Date Ranjith Hughes MD PCP - General 07/11/02 12/17/13 [address] [place] [address] documented as of this encounter
--- OUTSIDE RECORDS SUMMARY | 2022-07-19 23:02 | XMS_ITS | Encounter Summary ---
:1940 Author Organization [place] Address [address] [place] [address]. [place] [address] Care Team Providers Name Role Phone Ranjith Hughes MD Primary Care Provider Encounter Details Date Type Department Care Team Description 02/18/2007 [facility] (Pharmacy Retail Support Specialist) Hospitalists [address] [place], [place] ORTHOPEDICS [address] [phone] [address] [place] [address] Social History Tobacco Use Types Packs/Day Years Used Date Smoking Tobacco: Never Alcohol Use Standard Drinks/Week Comments No 0 (1 standard drink = 0.6 oz pure alcoho l) Sex Assigned at Date Recorded Not on file documented as of this encounter Progress Notes Sarah López - 02/26/2007 11:26 AM CDT FINAL PREOPERATIVE DIAGNOSIS: Left knee degenerative joint disease. POSTOPERATIVE DIAGNOSIS: Left knee degenerative joint disease. PROCEDURE: Left total knee arthroplasty. COMPONENTS USED: The components used included a size 3 femur and size 3 tibia 12.5 mm poly. ESTIMATED BLOOD LOSS: Estimated blood loss was less than 20 cc. DRAINS: X1. COMPLICATIONS: None. SURGEON: Sarah López MD ILLUSTRATOR SET: MARY Benson INDICATIONS FOR PROCEDURE PERFORMED: Brady is a 66-year-old female who I have treated for longstanding degenerative joint disease. She has done quite well to right total knee replacement and requestsher left one to be done. She refused conservative treatment and wanted to proceed. Consent was signed. DESCRIPTION OF PROCEDURE: Brady was brought to the operating room, placed supine on the operating room table after a spinal anesthetic had been delivered. The left lower extremity was prepped and draped in a sterile fashion and the limb was then exsanguinated and tourniquet was raised. Total tourniquet time was 110 minutes. Her leg was prepped. After prep and drape, midline incision with sharp dissection down to the kneecap. A medial parapatellar incision was made with removal of the fat pad was performed. I tried remove as much of the meniscus and medial lateral meniscus as possible. The medial release was then performed. With that completed the knee was then flexed up, ACL was removed and I drilled down the intramedullary canal and placed the distal cut. I left 5 degrees taking 11 mm off the distal femur. This cut nicely. After that was completed, at this point I sized her to a 3. This was posterior referencing. It was pinned in external rotation and the appropriate cuts were made. I then tr ialed the size 3 and that fit excellent. With that completed, I then used a reset saw to cut out themiddle notch for the stabilized knee. With that completed, again a trial was performed. At that point, I turned attention to the where the extramedullary guide was placed, taking 4 mm off the medial side which would take about 8 off the lateral side. This was pinned in placed and the standard cut was made. This was removed without difficulty. With that completed, I made sure that the PCL was freed upoff the back side of the femur, removed the meniscus tissue, and used the saw to cut off the posterior aspect of the knee to remove any osteophytes posteriorly. With that I was happy with the removal of all of the soft tissue. I then sized her to a size 3. This was trialed with a 10 mm poly. I used the femur to guide the placement of my poly. This was marked. The knee was then again flexed up and standard guides were used to make the appropriate cuts on the tibia. With that completed, I then measured the kneecap to approximately 22. She sized to a 35 and this was taking off 8.5 mm of bone. I set itat about 13.5 and made the appropriate cut and then used the jig to make the drill holes in the patella and then I trialed all of the components. She was still slightly loose with the 10 mm poly and soI tried a 12.5 and this fit perfectly. She then got out to full extension and full flexion. With that completed, irrigation was performed. With the knee flexed up the cement was mixed. The components were cemented with no problem and once the cement dried we then removed the rest of the cement. I did a final trial and I was happy with the 12.5. This was put in and the final irrigation was performed. Drain was placed. Wound was closed in layers. Sterile dressings were applied. She was placed into an Krish wrap. POSTOPERATIVE CONDITION/DISPOSITION: The patient was brought to PACU in stable condition. FINAL COUNTS: Needle and sponge count was correct. POSTOPERATIVE PLAN: The patient will be placed on Coumadin for deep venous thrombosis prophylaxis and 24 hours of IV antibiotics. She will begin physical therapy and be discharge in 2-3 days. Electronically signed on 02/26/2007 11:26 by SARAH LÓPEZ MD MT: [id number] Name: BRADY ESCOBAR MRN: [id number] Account: [id number] : 1940 Procedure Date: 02/18/2007 Document: [id number] documented in this encounter Plan of Treatment Not on filedocumented as of this encounter Visit Diagnoses Not on filedocumented in this encounter Care Teams Repairer Cylinder Heads Relationship Specialty Start Date End Date Ranjith Hughes MD PCP - General 07/11/02 12/17/13 [id number] [facility] [place] [address] documented as of this encounter
--- OUTSIDE RECORDS SUMMARY | 2022-07-19 23:02 | XMS_ITS | Encounter Summary ---
:1940 Author Organization [place] Address [facility] [place] [address] Care Team Providers Name Role Phone Ranjith Hughes MD Primary Care Provider Encounter Details Date Type Department Care Team Description 03/05/[address] [facility] Ranjith Hughes, DIAGNO SIS NOT YET [facility] [place] MD DEFINED (Primary Dx) [id number] [place] [id number] [place] [phone] Social History Tobacco Use Types Packs/Day Years Used Date Smoking Tobacco: Never Alcohol Use Standard Drinks/Week Comments No 0 (1 standard drink = 0.6 oz pure alcoho l) Sex Assigned at Date Recorded Not on file documented as of this encounter Plan of Treatment Not on filedocumented as of this encounter Procedures Procedure Name Priority Date/Time Associated Diagnosis Comme nts ABSTRACT [facility] REPORT Routine 03/05/2006 DIAGNOSIS NOT YET DEFINED CL AFF PROTHROMBIN TIME Routine 03/05/2006 DIAGNOSIS NOT YET Results for this DEFINED procedure are i n the results section . documented in this encounter Results PROTHROMBIN TIME [[id number]] (03/05/2006) P athologist Signature INR 2.69 MISYS Ranjith Hughes MD LABORATORY Performing Organization Address City/State/ZIP Code Phon e Number MISYS ABSTRACT [facility] REPORT (03/05/2006) Specimen (Source) Anatomical Location Collection Method / Collectio n Time Received Time / Laterality Volume 03/05/2006 Narrative This result has an attachment that is no t available. Ranjith Hughes MD LABORATORY Performing Organization Address City/State/ZIP Code Phon e Number MISYS documented in this encounter Visit Diagnoses Diagnosis DIAGNOSIS NOT YET DEFINED - Primary documented in this encounter Care Teams Casing Crew Pusher Relationship Specialty Start Date End Date Ranjith Hughes MD PCP - General 07/11/02 12/17/13 [address] [place] [address] documented as of this encounter
--- OUTSIDE RECORDS SUMMARY | 2022-07-19 23:02 | XMS_ITS | Encounter Summary ---
:1940 Author Organization [place] Address [address] [place] [address] Care Team Providers Name Role Phone Ranjith Hughes MD Primary Care Provider Encounter Details Date Type Department Care Team Description 03/11/2006 Emergency room Azra Huber MD EMERGENCY PHYSIC [facility] [address] [facility] [address] [place] [address] (Wo rk) Social History Tobacco Use Types Packs/Day Years Used Date Smoking Tobacco: Never Alcohol Use Standard Drinks/Week Comments No 0 (1 standard drink = 0.6 oz pure alcoho l) Sex Assigned at Date Recorded Not on file documented as of this encounter Progress Notes Azra Huber - 03/13/2006 1:05 PM CDT FINAL CHIEF COMPLAINT: Right knee pain. HISTORY OF PRESENT ILLNESS: This woman has been having her right knee totally replaced 1 month ago and during this last week she has been somewhat sore and swollen and she has been using it quite a bit. She has been off Coumadin for this last week. She was worked up a week ago and everything was negative. There was no sign of any DVT and no sign of infection at that time. Now she feels it is a little bit red and swollen. She has had no other recent injuries. She has had no fever or chills. ALLERGIES: Cephalosporins, EES, Keflex and antidepressants and penicillin. MEDICATIONS: Prozac, Celebrex and Prilosec. PAST MEDICAL HISTORY: Total right knee surgery. SOCIAL HISTORY: Nonsmoker. FAMILY HISTORY: Negative for DVT. REVIEW OF SYSTEMS: GENERAL: She has been feeling well except for the knee pain. SKIN: See history present illness. HEENT: Eyes, ears, nose and throat are negative. MUSCULOSKELETAL: See history of present illness. All other systems are negative. PHYSICAL EXAMINATION: VITAL SIGNS: Blood pressure 131/98, pulse 92, respiratory rate is 16, temperature is 97.8 and pulseoximetry 95% on room air. GENERAL: This is an alert, cooperative woman complaining of a painful right knee and concerned that it might be infected. SKIN: Warm and dry. EXTREMITIES: Right knee does have good range of motion but it is a little bit swollen, however, compared to the other knee they both measure 50 cm and the calves measure 47 cm. The right ankle is 30 cm compared to 26 cm on the left ankle. Right foot measures 29 cm left foot 25 cm so there is a littlebit of pedal swelling. The dorsipedal pulses are intact, popliteal pulses are intact and femoral pulses are intact. She has good range of motion of the right hip and good range of motion of the right ankle. Around the surgical site there are some very mild erythematous areas that are warm to touch. LABORATORY DATA: Her basic metabolic battery is normal except for potassium at 10.6, C-reactive protein inflammatory is 7.7 and sed rate is 11. Two blood cultures were done, right knee x-ray looks normal and Doppler ultrasound was negative for DVT, white count 6,300 with a normal differential. Hemoglobin is 11.9, platelets 148,000. EMERGENCY DEPARTMENT COURSE: Darvocet-N 100, one tablet for her pain. IV normal saline TKO was started and I predosed her with Benadryl 25 mg IV and gave her 500 mg of Levaquin IV. She is doing very nicely at this time. DISCHARGE PLAN: See Ortho or primary medical doctor for follow-up tomorrow, Levaquin 500 mg daily x10 days. DIAGNOSIS: Right knee pain, possible cellulitis. CONDITION: Stable. Electronically signed on 03/13/2006 13:04 by AZRA HUBER MD MT: [id number] Name: BRADY ESCOBAR MRN: [id number] Account: [id number] : 1940 Visit Date: 03/11/2006 Document: [id number] cc: Ranjith Palmer MD Azra Huber - 03/12/2006 6:01 AM CDT PRELIMINARY CHIEF COMPLAINT: Right knee pain. HISTORY OF PRESENT ILLNESS: This woman has been having her right knee totally replaced 1 month ago and during this last week she has been somewhat sore and swollen and she has been using it quite a bit. She has been off Coumadin for this last week. She was worked up a week ago and everything was negative. There was no sign of any DVT and no sign of infection at that time. Now she feels it is a little bit red and swollen. She has had no other recent injuries. She has had no fever or chills. ALLERGIES: Cephalosporins, EES, Keflex and antidepressants and penicillin. MEDICATIONS: Prozac, Celebrex and Prilosec. PAST MEDICAL HISTORY: Total right knee surgery. SOCIAL HISTORY: Not helpful. FAMILY HISTORY: Not helpful. REVIEW OF SYSTEMS: GENERAL: She has been feeling well except for the knee pain. SKIN: See history present illness. HEENT: Eyes, ears, nose and throat are negative. MUSCULOSKELETAL: See history of present illness. All other systems are negative. PHYSICAL EXAMINATION: VITAL SIGNS: Blood pressure 131/98, pulse 92, respiratory rate is 16, temperature is 97.8 and pulseoximetry 95% on room air. GENERAL: This is an alert, cooperative woman complaining of a painful right knee and concerned that it might be infected. SKIN: Warm and dry. EXTREMITIES: Right knee does have good range of motion but it is a little bit swollen, however, compared to the other knee they both measure 50 cm and the calves measure 47 cm. The right ankle is 30 cm compared to 26 cm on the left ankle. Right foot measures 29 cm left foot 25 cm so there is a littlebit of pedal swelling. The dorsipedal pulses are intact, popliteal pulses are intact and femoral pulses are intact. She has good range of motion of the right hip and good range of motion of the right ankle. Around the surgical site there are some very mild erythematous areas that are warm to touch. LABORATORY DATA: Her basic metabolic battery is normal except for potassium at 10.6, C-reactive protein inflammatory is 7.7 and sed rate is 11. Two blood cultures were done, right knee x-ray looks normal and Doppler ultrasound was negative for DVT, white count 6,300 with a normal differential. Hemoglobin is 11.9, platelets 148,000. EMERGENCY DEPARTMENT COURSE: Darvocet-N 100, one tablet for her pain. IV normal saline TKO was started and I predosed her with Benadryl 25 mg IV and gave her 500 mg of Levaquin IV. She is doing very nicely at this time. DISCHARGE PLAN: See Ortho or primary medical doctor for follow-up tomorrow, Levaquin 500 mg daily x10 days. DIAGNOSIS: Right knee pain, possible cellulitis. CONDITION: Stable. AZRA HUBER MD MT: [id number] Name: BRADY ESCOBAR Account: [id number] : 1940 Visit Date: 03/11/2006 Document: [id number] cc: Ranjith Palmer MD documented in this encounter Plan of Treatment Not on filedocumented as of this encounter Visit Diagnoses Not on filedocumented in this encounter Care Teams Burr Sander Relationship Specialty Start Date End Date Ranjith Hughes MD PCP - General 07/11/02 12/17/13 [address] [place] [address] documented as of this encounter
--- OUTSIDE RECORDS SUMMARY | 2022-07-19 23:03 | XMS_ITS | Encounter Summary ---
:1940 Author Organization [place] Address [address] [place] [address] Care Team Providers Name Role Phone Ranjith Hughes MD Primary Care Provider Encounter Details Date Type Department Care Team Description 10/12/2003 Scan Legal Document [facility] MD Quan [address] [place] [phone] (Wo rk) Social History Tobacco Use Types Packs/Day Years Used Date Smoking Tobacco: Never Assessed Sex Assigned at Date Recorded Not on file documented as of this encounter Plan of Treatment Not on filedocumented as of this encounter Visit Diagnoses Not on filedocumented in this encounter Care Teams Device Engineer Relationship Specialty Start Date End Date Ranjith Hughes MD PCP - General 07/11/02 12/17/[id number] [place] [address] documented as of this encounter
--- OUTSIDE RECORDS SUMMARY | 2022-07-19 23:03 | XMS_ITS | Encounter Summary ---
:1940 Author Organization [place] Address [address] [place] [address] Care Team Providers Name Role Phone Ranjith Hughes MD Primary Care Provider Encounter Details Date Type Department Care Team Description 02/11/2003 Medical Correspondence [facility] Robin Stone [facility] MD Quan [address] [place] [phone] [phone] Social History Tobacco Use Types Packs/Day Years Used Date Smoking Tobacco: Never Assessed Sex Assigned at Date Recorded Not on file documented as of this encounter Plan of Treatment Not on filedocumented as of this encounter Visit Diagnoses Not on filedocumented in this encounter Care Teams Gate Manager Relationship Specialty Start Date End Date Ranjith Hughes MD PCP - General 07/11/02 12/17/[id number] [place] [id number] documented as of this encounter
--- OUTSIDE RECORDS SUMMARY | 2022-07-19 23:03 | XMS_ITS | Encounter Summary ---
:1940 Author Organization [place] Address [address] [place] [address]. [place] [address] Care Team Providers Name Role Phone Ranjith Hughes MD Primary Care Provider Reason for Visit Reason Comments Nausea RECHECK Encounter Details Date Type Department Care Team Description 06/13/2005 Office Visit [facility] Ranjith Hughes, ALLERG IC RHINITIS NOS (Primary Dx); [facility] [place] POLYURIA; [address] [facility] [id number] [place] [address] [place] [address] [id number] Social History Tobacco Use Types Packs/Day Years Used Date Smoking Tobacco: Never Alcohol Use Standard Drinks/Week Comments No 0 (1 standard drink = 0.6 oz pure alcoho l) Sex Assigned at Date Recorded Not on file documented as of this encounter Last Filed Vital Signs Vital Sign Reading Time Taken Comments Blood Pressure 132/90 06/13/2005 8:45 AM CDT Pulse - - Temperature - - Respiratory Rate - - Oxygen Saturation - - Inhaled Oxygen Concentration - - Weight 101.2 kg (223 lb) 06/13/2005 8:45 AM CDT Height 158.8 cm (5' 2.5) 06/13/2005 8:45 AM CDT Body Mass Index 40.14 06/13/2005 8:45 AM CDT documented in this encounter Progress Notes Ranjith Hughes - 06/13/2005 9:25 AM CDT SUBJECTIVE: Brady Escobar, a 65 year old female scheduled an appointment to discuss the following issues: ALLERGIC RHINITIS NOS; still drainaing POLYURIA; she is concerned about infection or dm NAUSEA ALONE; every morning with no vomiting Medical, social, surgical, and family histories reviewed. ROS: CONSTITUTIONAL:as above I: NEGATIVE for worrisome rashes, moles or lesions ENT/MOUTH: as above R: NEGATIVE for significant cough or SOB CV: NEGATIVE for chest pain, palpitations or peripheral edema GI: NEGATIVE for nausea, abdominal pain, heartburn, or change in bowel habits male :as above OBJECTIVE: BP 132/90 Ht 5' 2.5 (1.59m) Wt 223 lbs (101.2kg) LMP Postmenopausal EXAM: GENERAL APPEARANCE: healthy, alert and no distress EYES: EOMI, fundi benign- PERRL HENT: inferior turbs enlarged with drainage RESP: lungs clear to auscultation - no rales, rhonchi or wheezes CV: regular rates and rhythm, normal S1 S2, no S3 or S4 and no murmur, click or rub - ABDOMEN: soft, nontender, no HSM or masses and bowel sounds normal ASSESSMENT/PLAN: 477.9 ALLERGIC RHINITIS NOS (primary encounter diagnosis) Note: Plan: CLARITIN-D 24 HOUR 10-240 MG OR TB24 788.42 POLYURIA Note: no evidence of infection or sugar n urine Plan: UA MICRO IF POSITIVE, GLUCOSE observation rtc in 1 month 787.02 NAUSEA ALONE Note: suspect from darainge from her nose Plan: X-RAY ABDOMEN 1 VW documented in this encounter Nursing Notes 06/13/2005 8:45 AM CDT >> RD AVILEZ 06/13/2005 9:00 am Brady Escobar presents for follow up depression and nausea. Nausea past 2 weeks. Initial BP 132/90 Ht 5' 2.5 (1.59m) Wt 223 lbs (101.2kg) LMP Postmenopausal Body Mass Index is 40.11 kg/(m^2).. BP completed using cuff size: large. Letty Avilez LPN documented in this encounter Plan of Treatment Not on filedocumented as of this encounter Procedures Procedure Name Priority Date/Time Associated Diagnosis Comme nts HCL UA MICRO IF Routine 06/13/2005 9:34 AM Polyuria Result s for this POSITIVE CDT procedure are i n the results section. HCL GLUCOSE Routine 06/13/2005 9:34 AM Polyuria Results f or this CDT procedure are i n the results section. CL AFF MICRO Routine 06/13/2005 9:34 AM Results f or this EXAM-URINE CDT procedure are i n the results section. HC X-RAY ABDOMEN AP Routine 06/13/2005 Nausea Alone Results for this VIEW (KUB) procedure are i n the results section. documented in this encounter Results MICRO EXAM-URINE (06/13/2005 9:34 AM CDT) athologist Signature WBC Urine O - 2 0 - 2 /HPF [facility] RBC Urine O - 2 0 - 2 /HPF [facility] Squamous EPI Few FEW /LPF [facility] Specimen Anatomical Collection Method Collection Time Receive d Time (Source) Location / / Volume Laterality 06/13/2005 9:34 AM 5 9:39 CDT AM CDT Ranjith Hughes MD LABORATORY Performing Organization Address [facility]/ZIP Code Phon e Number [address] [address] [facility] GLUCOSE (06/13/2005 9:34 AM CDT) athologist Signature Glucose 93 60 - 110 [place] mg/dL [facility] Specimen Anatomical Collection Method Collection Time Receive d Time (Source) Location / / Volume Laterality 06/13/2005 9:34 AM 5 9:39 CDT AM CDT Ranjith Hughes MD LABORATORY Performing Organization Address City/[facility] Phon e Number [address] [address] [facility] (ABNORMAL) UA MICRO IF POSITIVE (06/13/2005 9:34 AM CDT) [facility] gist Method Time Signature Color Urine Yellow [facility] Appearance Urine Clear [facility] Glucose Urine Negative NEG mg/dL [facility] Bilirubin Urine Negative NEG [facility] Ketones Urine Negative NEG mg/dL [facility] Specific [place] 1.020 1.001 - [place] Urine 1.035 [facility] Blood Urine Negative NEG [facility] pH Urine 7.5 (H) 5.0 - 7.0 [place] pH [facility] Protein Albumin Negative NEG mg/dL [place] Urine [facility] Urobilinogen 0.2 0.2 - 1.0 [place] Urine EU/dL [facility] Nitrite Urine Negative NEG [facility] Leukocyte Trace (A) NEG [place] Esterase Urine [facility] Source Midstream [place] Urine [facility] Specimen Anatomical Collection Method Collection Time Receive d Time (Source) Location / / Volume Laterality 06/13/2005 9:34 AM 5 9:39 CDT AM CDT Ranjith Hughes MD LABORATORY Performing Organization Address City/State/[facility] Phon e Number [facility] [address] [place] [address] [facility] X-RAY ABDOMEN 1 VW (06/13/2005) Anatomical Region Laterality Modality Other Impressions 06/13/2005 REPORT OF OUTSIDE FILMS FROM [facility] BRADY ESCOBAR : ??42 FLAT AND UPRIGHT ABDOMEN: ??06/13/05 FINDINGS: ??There is a fair amount of fe hector content within the colon. ??Otherwise nondiagnostic bowel g as pattern. ??There is no distended bowel. ??There is no free air. ??No abnormal calcifications are seen. ?? CONCLUSION: ??Constipated colon and nond iagnostic abdomen. Incidentally there is a moderate leftwar d spinal curvature centered at the L1 vertebral body. ??The re may be some compression of L1 and degenerative disc changes. ??I would recommend a followup lateral view if clinically cody cated. ??Additionally there are some phleboliths in the pelvis , small calcifications. Sherif Campoverde M.D./kimmie D/T: ??06/14/05 Ordering MD/Provider Initial Interpretat ion: Normal/Negative, vertebral body curve ? compression Electronically filed by Marlin Stewart ??06/13/2005 ??11:14 AM . Ranjith Hughes MD GENERAL IMAGING documented in this encounter Visit Diagnoses Diagnosis Allergic rhinitis, cause unspecified - P rimary Polyuria Nausea alone documented in this encounter Care Teams Hot Wort Settler Relationship Specialty Start Date End Date Ranjith Hughes MD PCP - General 07/11/02 12/17/13 [address] [place] [address] documented as of this encounter
--- OUTSIDE RECORDS SUMMARY | 2022-07-19 23:03 | XMS_ITS | Encounter Summary ---
:1940 Author Organization [place] Address [facility] [place] [address] Care Team Providers Name Role Phone Ranjith Hughes MD Primary Care Provider Reason for Visit Reason Comments Sinus Problem Encounter Details Date Type Department Care Team Description 05/15/[address] [facility] [place], ACUTE NASO PHARYNGITIS Clinic [place]gardo Kasper MD (Primary Dx) [address] [address] [place], [place] [id number] Social History Tobacco Use Types Packs/Day Years Used Date Smoking Tobacco: Never Alcohol Use Standard Drinks/Week Comments No 0 (1 standard drink = 0.6 oz pure alcoho l) Sex Assigned at Date Recorded Not on file documented as of this encounter Progress Notes Cheryl Barrett - 05/17/2005 3:29 PM CDT 05/15/05 BRADY ESCOBAR : 1940 S: Complaining of four weeks of sinus congestion in her face. She hurts all over, her headaches. Sheis just not feeling well. Sweating. Not feeling like herself. She has had a low grade fever at home. Her past medical history is not significant for major medical problems. She has allergies to penicillin, tetracycline, and erythromycin. O: Her examination shows her vital signs are stable. Blood pressure of 130/70. Pulse of 88. Temperature of 98.9. Exam shows general: She appears to be not acutely ill. ENT: Shows inferior turbinates are enlarged and there is drainage that is evident. Her oropharynx slightly erythematous. She did have neck adenopathy. Her lungs were clear. Extremities clear. Neuro appeared intact. I: Sinusitis. P: Levaquin 500 mg b.i.d. for ten days, Charisse D b.i.d. for ten days. Samples were given. She was to return to clinic in two weeks for follow-up evaluation. Sonia Hughes MD/[id number] Electronically filed by Cheryl Barrett 05/17/2005 3:29 PM documented in this encounter Plan of Treatment Not on filedocumented as of this encounter Visit Diagnoses Diagnosis Acute nasopharyngitis (common cold) - Pr imary documented in this encounter Care Teams Amortization Schedule Clerk Relationship Specialty Start Date End Date Ranjith Hughes MD PCP - General 07/11/02 12/17/13 [address] [place] [address] documented as of this encounter
--- OUTSIDE RECORDS SUMMARY | 2022-07-19 23:03 | XMS_ITS | Encounter Summary ---
:1940 Author Organization [place] Address [facility] [place] [address] Care Team Providers Name Role Phone Ranjith Hughes MD Primary Care Provider Julia White MD Primary Care Provider Fely [place] MD Primary Care Provider [phone] Julia White MD Primary Care Provider Fely [place] MD Primary Care Provider [phone] Korin Gutierrez DO Primary Care Provider Encounter Details Date Type Department Care Team Description 07/29/2002 Historic Results [facility] Heart Unknown, [address] [place] [address] Social History Tobacco Use Types Packs/Day Years Used Date Smoking Tobacco: Never Assessed Sex Assigned at Date Recorded Not on file documented as of this encounter Plan of Treatment Not on filedocumented as of this encounter Procedures Procedure Name Priority Date/Time Associated Diagnosis Comme nts ECHO CARDIAC - HIM SCAN 07/29/2002 12:00 AM CENTER HOLE REAMER - ARCHIVE documented in this encounter Results ECHO CARDIAC - HIM SCAN - ARCHIVE (07/29/2002 12:00 AM CENTER HOLE REAMER) Anatomical Region Laterality Modality Echocardiography Specimen (Source) Anatomical Location Collection Method / Collectio n Time Received Time / Laterality Volume 07/29/2002 Narrative This result has an attachment that is no t available. Provider Scan CV ECHO ORDERABLES documented in this encounter Visit Diagnoses Not on filedocumented in this encounter Care Teams Sub Plant Manager Relationship Specialty Start Date End Date Ranjith Hughes MD PCP - General 07/11/02 12/17/13 [address] [place], [place] [id number] Julia White MD PCP - General Family Practice 12/18/13 11/01/14 [address] [place] [address] Fely [place] MD PCP - General Family Practice 11/02/14 01/28/16 Julia White MD PCP - General Family Practice 01/29/16 02/09/16 [address] [place], [place] [id number] Fely [place] MD PCP - General Family Practice 02/10/16 03/08/16 Korin Gutierrez DO PCP - General Family Practice 03/09/16 06/18/16 documented as of this encounter
--- OUTSIDE RECORDS SUMMARY | 2022-07-19 23:03 | XMS_ITS | Encounter Summary ---
:1940 Author Organization [place] Address [address] [place] [address] Care Team Providers Name Role Phone Ranjith Hughes MD Primary Care Provider Encounter Details Date Type Department Care Team Description 10/22/2003 Abstract [facility] Cheryl Barrett [address] [place], [place] [address] Social History Tobacco Use Types Packs/Day Years Used Date Smoking Tobacco: Never Assessed Sex Assigned at Date Recorded Not on file documented as of this encounter Plan of Treatment Not on filedocumented as of this encounter Procedures Procedure Name Priority Date/Time Associated Diagnosis Comme nts ABSTRACT PAP (HIM EXTERNAL RESULT) Routine 04/23/2000 documented in this encounter Results ABSTRACT PAP-NO CHARGE (04/23/2000) Cheryl Barrett LAB - HIM EXTERNAL RESULT Performing Organization Address City/State/ZIP Code Phon e Number [facility] documented in this encounter Visit Diagnoses Not on filedocumented in this encounter Care Teams Provider Relations Representative Relationship Specialty Start Date End Date Ranjith Hughes MD PCP - General 07/11/02 12/17/13 [address] [place] [address] documented as of this encounter
--- OUTSIDE RECORDS SUMMARY | 2022-07-19 23:03 | XMS_ITS | Encounter Summary ---
:1940 Author Organization [place] Address [facility] [place] [address] Care Team Providers Name Role Phone Ranjith Hughes MD Primary Care Provider Julia White MD Primary Care Provider Fely [place] MD Primary Care Provider [phone] Julia White MD Primary Care Provider Fely [place] MD Primary Care Provider [phone] Korin Gutierrez DO Primary Care Provider Encounter Details Date Type Department Care Team Description 11/03/2003 Historic Results [facility] Heart Unknown, [address] [place] [address] Social History Tobacco Use Types Packs/Day Years Used Date Smoking Tobacco: Never Assessed Sex Assigned at Date Recorded Not on file documented as of this encounter Plan of Treatment Not on filedocumented as of this encounter Procedures Procedure Name Priority Date/Time Associated Diagnosis Comme nts NUCLEAR CARDIAC - HIM 11/03/2003 12:00 AM UTILITY AIDE SCAN - ARCHIVE documented in this encounter Results NUCLEAR CARDIAC - HIM SCAN - ARCHIVE (11/03/2003 12:00 AM UTILITY AIDE) Anatomical Region Laterality Modality Other Specimen (Source) Anatomical Location Collection Method / Collectio n Time Received Time / Laterality Volume 11/03/2003 Narrative This result has an attachment that is no t available. Provider Scan IMG NM ORDERABLES documented in this encounter Visit Diagnoses Not on filedocumented in this encounter Care Teams Blanching Machine Operator Relationship Specialty Start Date End Date Ranjith Hughes MD PCP - General 07/11/02 12/17/13 [address] [place], [place] [id number] Julia White MD PCP - General Family Practice 12/18/13 11/01/14 [address] [place] [address] Fely [place] MD PCP - General Family Practice 11/02/14 01/28/16 Julia White MD PCP - General Family Practice 01/29/16 02/09/16 [address] [place], [place] [phone] Fely [place] MD PCP - General Family Practice 02/10/16 03/08/16 Korin Gutierrez DO PCP - General Family Practice 03/09/16 06/18/16 documented as of this encounter
--- OUTSIDE RECORDS SUMMARY | 2022-07-19 23:03 | XMS_ITS | Encounter Summary ---
:1940 Author Organization [place] Address [address] [place] [address] Care Team Providers Name Role Phone Ranjith Hughes MD Primary Care Provider Encounter Details Date Type Department Care Team Description 11/30/2003 Medical Correspondence [facility] MD Quan [address] [place] [address] [phone] Social History Tobacco Use Types Packs/Day Years Used Date Smoking Tobacco: Never Assessed Sex Assigned at Date Recorded Not on file documented as of this encounter Plan of Treatment Not on filedocumented as of this encounter Visit Diagnoses Not on filedocumented in this encounter Care Teams Traffic Superintendent Relationship Specialty Start Date End Date Ranjith Hughes MD PCP - General 07/11/02 12/17/[id number] [place] [address] documented as of this encounter
--- OUTSIDE RECORDS SUMMARY | 2022-07-19 23:03 | XMS_ITS | Encounter Summary ---
:1940 Author Organization [place] Address [facility] [place] [address] Care Team Providers Name Role Phone Ranjith Hughes MD Primary Care Provider Reason for Visit Reason Comments Physical physical --NO PAP--med check --Questions Encounter Details Date Type Department Care Team Description 12/19/2004 Office Visit [facility] Ranjith Hughes DEPRES SIVSkylar DISORDER NEC; Clinic [place] MD ESOPHAGEAL REFLUX; [address] [facility] [address] [facility] ARTHROPATHY NOS-UNSPEC; [place], [place] ABNORMA L WEIGHT GAIN; [address] MED EXAM NEC-ADMIN PURP [phone] Social History Tobacco Use Types Packs/Day Years Used Date Smoking Tobacco: Never Alcohol Use Standard Drinks/Week Comments No 0 (1 standard drink = 0.6 oz pure alcoho l) Sex Assigned at Date Recorded Not on file documented as of this encounter Last Filed Vital Signs Vital Sign Reading Time Taken Comments Blood Pressure 115/72 12/19/2004 12:45 PM SUBSORTER Pulse - - Temperature - - Respiratory Rate - - Oxygen Saturation - - Inhaled Oxygen Concentration - - Weight 103 kg (227 lb) 12/19/2004 12:45 PM SUBSORTER Height 158.8 cm (5' 2.5) 12/19/2004 12:45 PM SUBSORTER Body Mass Index 40.86 12/19/2004 12:45 PM SUBSORTER documented in this encounter Progress Notes Ranjith Hughes - 12/19/2004 1:08 PM CST SUBJECTIVE: Lee Ann Herndon, a 64 year old female scheduled an appointment to discuss the following issues: DEPRESSIVE DISORDER NEC; she is doing well when she takes her med. we need to refill although there is no paxil cr. we will change her to regular paxil ESOPHAGEAL REFLUX; heartburn that is resolved with ppi ARTHROPATHY NOS-UNSPEC; hx of arthritis with no deformity ABNORMAL WEIGHT GAIN; because of her arthritis.she is unable to get exercise Medical, social, surgical, and family histories reviewed. ROS:as above C: NEGATIVE for fever, chills, change in [...] M: NEGATIVE for significant arthralgias or myalgia E: NEGATIVE for temperature intolerance, skin/hair changes OBJECTIVE: BP 115/72 Ht 5' 2.5 (1.59m) Wt 227 lbs (103.0kg) LMP Postmenopausal EXAM: GENERAL APPEARANCE: healthy, alert and no distress EYES: EOMI, fundi benign- PERRL HENT: ear canals and TM's normal [...] or masses and bowel sounds normal MS: no deformities or synovitis noted. ASSESSMENT/PLAN: 311 DEPRESSIVE DISORDER NEC Note: doig well with meds. Plan: cont. same 530.81 ESOPHAGEAL REFLUX Note: good symptoms eliminated. Plan: cont. protonix 716.90 ARTHROPATHY NOS-UNSPEC Note: arthralgia Plan: mobic, since she thinks that feldene is to harsh. 783.1 ABNORMAL WEIGHT GAIN Note: Plan: phentermine. ORTER documented in this encounter Nursing Notes 12/19/2004 12:45 PM CST >> FAITH TROYT 12/19/2004 12:56 pm Lee Ann Herndon presents for pt here for physical --NO PAP--med check--pt is fasting for bloodwork--has questions?. Initial BP 115/72 Ht 5' 2.5 (1.59m) Wt 227 lbs (103.0kg) LMP Postmenopausal Body Mass Index is 40.83 kg/(m^2). . BP completed using cuff size: large. Stephania Troy CLOTH CUTTER Last TD--1996 Last pap--1999--Negative Last mammo--NA Bone density--NA Stephania Troy CLOTH CUTTER documented in this encounter Plan of Treatment Not on filedocumented as of this encounter Visit Diagnoses Diagnosis Depressive disorder, not elsewhere class ified Esophageal reflux Arthropathy, unspecified, site unspecifi ed Abnormal weight gain Other general medical examination for ad ministrative purposes documented in this encounter Care Teams Veterinary Assistant Relationship Specialty Start Date End Date Ranjith Hughes MD PCP - General 07/11/02 12/17/13 [address] [place] [address] documented as of this encounter
--- OUTSIDE RECORDS SUMMARY | 2022-07-19 23:03 | XMS_ITS | Encounter Summary ---
:1940 Author Organization [place] Address [facility] [place] [address] Care Team Providers Name Role Phone Ranjith Hughes MD Primary Care Provider Reason for Visit Reason Onset Date Comments Medication Request 11/06/2005 [email or web address] Encounter Details Date Type Department Care Team Description [facility] MD Medication Request [place] [id number] [place] [address] (cymbyax) [address] [place], [place] [phone] [phone] Social History Tobacco Use Types Packs/Day Years Used Date Smoking Tobacco: Never Alcohol Use Standard Drinks/Week Comments No 0 (1 standard drink = 0.6 oz pure alcoho l) Sex Assigned at Date Recorded Not on file documented as of this encounter Miscellaneous Notes Telephone Encounter - Aaliyah Reynolds - 11/06/2005 12:34 PM CST pt wonders if would rx symbyax, is $30.00 cheaper, has used before, will route to , t-up for you, call pt only if tbl @ [phone] (home) may lmom Aaliyah Reynolds RN K TYPIST documented in this encounter Plan of Treatment Not on filedocumented as of this encounter Visit Diagnoses Not on filedocumented in this encounter Care Teams Machine Operator Packaging Relationship Specialty Start Date End Date Ranjith Hughes MD PCP - General 07/11/02 12/17/13 [address] [place] [address] documented as of this encounter
--- OUTSIDE RECORDS SUMMARY | 2022-07-19 23:03 | XMS_ITS | Encounter Summary ---
:1940 Author Organization [place] Address [facility] [place] [address] Care Team Providers Name Role Phone Ranjith Hughes MD Primary Care Provider Reason for Visit Reason Comments Patient Request Encounter Details Date Type Department Care Team Description 10/15/2003 Telephone [facility] Kameron Stone Patient Request [place]aret Glass MD [address] [place] [address] [place] [phone] Social History Tobacco Use Types Packs/Day Years Used Date Smoking Tobacco: Never Assessed Sex Assigned at Date Recorded Not on file documented as of this encounter Miscellaneous Notes Telephone Encounter - 10/15/2003 11:59 PM SPRAYER OPERATOR >> KAMERON Nagy Oct 16, 2003 12:05 PM ok jm >> ADRIANE Nagy Oct 16, 2003 9:43 AM Yessica is working with [employer] on her disability case. She is wondering if you have been in contact at all with her insurance company or her workplace. I was unable to tell in her EMR. She is going to be faxing over the pt's signed release. Adriane Echeverria RN >> YUDELKA Delgado Oct 15, 2003 3:34 PM >> CALL RECEIVED. Contact: Left message to call back. Yudelka Martinez RN >> YUDELKA Delgado Oct 15, 2003 3:30 PM Staff Message copied by YUDELKA MARTINEZ on 10/15/2003 at 3:30 PM ------ Message from: CHARLES BABIN Created: 10/15/2003 at 10:28 AM Regarding: jm appeals jv please call [facility] at [phone]. Is helping chandler with a disability case. they are going to appeal and would like to know if her work or [employer] company has gotten in contact with you thanks documented in this encounter Plan of Treatment Not on filedocumented as of this encounter Visit Diagnoses Not on filedocumented in this encounter Care Teams Mechanical Engineering Coop Relationship Specialty Start Date End Date Ranjith Hughes MD PCP - General 07/11/02 12/17/13 [address] [place] [address] documented as of this encounter
--- OUTSIDE RECORDS SUMMARY | 2022-07-19 23:03 | XMS_ITS | Encounter Summary ---
:1940 Author Organization [place] Address Formerly [facility], [facility] [place] [address] Care Team Providers Name Role Phone Ranjith Hughes MD Primary Care Provider Reason for Visit Reason Onset Date Comments HAND HARDENER - INTRODUCTION 12/08/2004 [facility] FOR SENIOR MEMBER EFF 11/29/04 Encounter Details Date Type Department Care Team Description 12/08/2004 Telephone [facility] Demarco Ordaz HAND HARDENER - ASSOCIATES - CARE PHYSICIAN INTRODUCTI ON (NEW [facility] S[facility]IOR MEM[facility] [address] EFF 11/29/04) [facility] [address] [address] [address] [phone] Social History Tobacco Use Types Packs/Day Years Used Date Smoking Tobacco: Never Assessed Sex Assigned at Date Recorded Not on file documented as of this encounter Miscellaneous Notes Telephone Encounter - So Ordaz - 12/08/2004 2:24 PM CST LATE ENTRY: This patient is a [employer] for Senior member within the [facility] care system effective November 29, 2004. A letter of introduction with patient program information has been mailed to this member including my name and contact information as the [facility] for strategic marketing manager. [facility] EMR reviewed. The followingpatient programs are available for this are for Senior member and my assistance in care plannin. CHF - are partners with [employer] to offer a heart failure program to members through the use of a high tech scale and heart failure nurses to facilitate symptom and weight gain identification allowing for early intervention. 2. Falls Prevention - a free home safety visit coordinated through [facility]. 3. Smoking Cessation Program-[facility] Tobacco Quitline ( ). 4. Advanced Care Planning - Palliative Care Choices Consult Services (PCCCS) is a free visit (up to a total of six visits) from a team of [facility] professionals for planning palliative care (physical, emotional, social and spiritual needs). 5. Memory Loss - Case Management, Geriatric Services and referral resource to Alzheimer Association programs and information. So Ordaz manager paper FPA OR TECHNICAL PROGRAM MANAGER documented in this encounter Plan of Treatment Not on filedocumented as of this encounter Visit Diagnoses Not on filedocumented in this encounter Care Teams Rate Supervisor Relationship Specialty Start Date End Date Ranjith Hughes MD PCP - General 07/11/02 12/17/13 [address] [place] [address] documented as of this encounter
--- OUTSIDE RECORDS SUMMARY | 2022-07-19 23:03 | XMS_ITS | Encounter Summary ---
:1940 Author Organization [place] Address [facility] [place] [address] Care Team Providers Name Role Phone Ranjith Hughes MD Primary Care Provider Reason for Visit Reason Onset Date Comments Pt. Information/instruction 01/16/2005 - Pt need s LoOvral Encounter Details Date Type Department Care Team Description 01/16/2005 Telephone [facility] Ranjith Hughes, Pt. Clinic [place] MD Information/instruction [address] [facility] [id number] [place] [address] ( - Pt needs LoOvral) [place] [address] [phone] Social History Tobacco Use Types Packs/Day Years Used Date Smoking Tobacco: Never Alcohol Use Standard Drinks/Week Comments No 0 (1 standard drink = 0.6 oz pure alcoho l) Sex Assigned at Date Recorded Not on file documented as of this encounter Miscellaneous Notes Telephone Encounter - Dana Gonsalez - 01/16/2005 9:06 AM CDT Pt states she was told to call you to let you know how she is doing. Doing well on Mobic. Needs rx for lo ovral faxed to [facility] Dana Cortes RN documented in this encounter Plan of Treatment Not on filedocumented as of this encounter Visit Diagnoses Diagnosis Other general medical examination for ad ministrative purposes Depressive disorder, not elsewhere class ified Esophageal reflux Arthropathy, unspecified, site unspecifi ed Abnormal weight gain documented in this encounter Care Teams Frozen Foods Manager Relationship Specialty Start Date End Date Ranjith Hughes MD PCP - General 07/11/02 12/17/13 [address] [place] [address] documented as of this encounter
--- OUTSIDE RECORDS SUMMARY | 2022-07-19 23:03 | XMS_ITS | Encounter Summary ---
:1940 Author Organization [place] Address [address] [place] [address]. [place] [address] Care Team Providers Name Role Phone Ranjith Hughes MD Primary Care Provider Reason for Referral - Closed Specialty Diagnoses / Procedures Referred By Contact Refer red To Contact Diagnoses Edema Congestive heart failure, unspecified [place] [id number] [place] [address] [phone] Referral ID Status Reason Start Date Expiration Date Visits Requ ested Visits Authorized [id number] Closed 10/23/2003 09/30/2011 1 1 O AND SOUND RECORDER - Closed Specialty Diagnoses / Procedures Referred By Contact Refer red To Contact Diagnoses Congestive heart failure, [place] [id number] [place] [address] [phone] Referral ID Status Reason Start Date Expiration Date Visits Requ ested Visits Authorized [id number] Closed 10/23/2003 09/30/2011 1 1 O AND SOUND RECORDER Reason for Visit Reason Comments froms Encounter Details Date Type Department Care Team Description 10/23/2003 Office Visit [facility] Lio Stone TIVE HEART FAILURE, UNSPEC; Clinic Adri Glass MD EDEMA; [address] DEPRESSIVE DISORDER NEC; [place], [place] JOINT P AIN-LOWER LEG; [phone] GENERAL OSTEOARTHROSIS; [phone] LABYRINTHITIS N OS; (Work) LUMBOSACRAL NEURITIS NOS Social History Tobacco Use Types Packs/Day Years Used Date Smoking Tobacco: Never Assessed Sex Assigned at Date Recorded Not on file documented as of this encounter Last Filed Vital Signs Vital Sign Reading Time Taken Comments Blood Pressure 118/90 10/23/2003 1:30 PM VIDEO AND SOUND RECORDER Pulse - - Temperature - - Respiratory Rate - - Oxygen Saturation - - Inhaled Oxygen Concentration - - Weight - - Height - - Body Mass Index - - documented in this encounter Progress Notes 10/23/2003 1:30 PM VIDEO AND SOUND RECORDER SUBJECTIVE: Lee Ann Escobar, a 63 year old female scheduled an appointment to discuss the followin g issues: CONGESTIVE HEART FAILURE, UNSPEC-echo showed impaired contractility:get up to date study, she's now willing EDEMA-intermittent with itchy rash and joint aches and often swelling:question of ssri reaction DEPRESSIVE DISORDER NEC-twice yearly psychologist follow up with adolfo felix and elliot white-doesn't see her psychiatrist now JOINT PAIN-LOWER LEG-severe oa both legs-see xray reports GENER AL OSTEOARTHROSIS LABYRINTHITIS NOS-intermittent dizziness, can't tolerate heights LUMBOSACRAL NEURIT IS NOS-sciatic nerve pain and limited bending-previous lumbar scans Medical, social, surgical, and f amily histories reviewed. OBJECTIVE: ROS: C: NEGATIVE for fever, chills, change in weight INTEGUMEN TARY/SKIN: flushing and edema either leg and also elbows and forearms E: NEGATIVE for vision changes or irritation E/M: NEGATIVE for ear, mouth and throat problems R: NEGATIVE for significant cough or S OB CV: NEGATIVE for chest pain, palpitations or peripheral edema GI: NEGATIVE for nausea, abdominal p ain, heartburn, or change in bowel habits : NEGATIVE for frequency, dysuria, or hematuria MUSCULOSK ELETAL:arthralgias knees, hips , back pain, joint stiffness knees,hips and joint swelling ankles and knees see HPI N: NEGATIVE for weakness, dizziness or paresthesias E: NEGATIVE for temperature intoler ance, skin/hair changes H: NEGATIVE for bleeding problems PSYCHIATRIC: anhedonia, anxiety, concentrat ion difficulty, depressed mood, HX depression and psychomotor retardation. EXAM: BP 118/90 GENERAL APPEARANCE: healthy, alert and no distress EYES: EOMI, fundi benign- PERRL HENT: ear canals and TM's normal and nose and mouth without ulcers or lesions NECK: no adenopathy, no asymmetry, masses, or sc ars and thyroid normal to palpation RESP: lungs clear to auscultation - no rales, rhonchi or wheezes BREAST: normal without masses, tenderness or nipple discharge and no palpable axillary masses or kelly opathy CV: no murmur, click or rub, PMI laterally displaced and tachycardia Abdomen: soft, nontender, no HSM or masses and bowel sounds normal MS: normal muscle tone, loss of extension right knee with c repitus, restricted hip rotation motion slight edema left ankle with crepitus and right ankle with n o crepitus, crepitus over both knees SKIN: no suspicious lesions or rashes NEURO: Normal strength and tone, sensory exam grossly normal, mentation intact and speech normal, Romberg borderline PSYCH: men tation appears normal. and affect normal/bright LYMPHATICS: No axillary, cervical, inguinal, or supra clavicular nodes. PLAN: 428.0 CONGESTIVE HEART FAILURE, UNSPEC Note: Plan: CONSULT [facility] HE ART she agrees to both consult and stress echo-refused in 2001 782.3 EDEMA Note: variable Plan : she says predictable when she uses ssri 311 DEPRESSIVE DISORDER NEC Notemental status improved fro m previous Plan: 719.46 JOINT PAIN-LOWER LEG Note: Plan: 715.00 GENERAL OSTEOARTHROSIS Note: Pl an: X-RAY KNEE BILAT STANDING, X-RAY HIPS 4 VW + PELVIS 386.30 LABYRINTHITIS NOS Note: Plan: had head MRI normal 724.4 LUMBOSACRAL NEURITIS NOS Note: refused surgery, overweight,intermi ttent and activity related Plan: documented in this encounter Nursing Notes 10/23/2003 1:30 PM CST >> JAE CRUZ 10/23/2003 2:01 pm Pt is in for to have disability forms filled out. ERICKSON Seaman documented in this encounter Plan of Treatment Not on filedocumented as of this encounter Procedures Procedure Name Priority Date/Time Associated Diagnosis Comme nts HC X-RAY KNEE AP Routine 10/23/2003 2:52 PM General Osteoarthr osis Results for this STANDING BILATERAL VIDEO AND SOUND RECORDER procedure are in the results section. HC X-RAY HIPS Routine 10/23/2003 2:52 PM General Osteoarthrosi s Results for this BILATERAL 2 OR VIDEO AND SOUND RECORDER procedure are in >VIEWS EA HIP, W the results PELVIS section. documented in this encounter Results X-RAY HIPS 4 VW + PELVIS (10/23/2003 2:52 PM VIDEO AND SOUND RECORDER) Anatomical Region Laterality Modality Other Impressions 10/23/2003 2:52 PM VIDEO AND SOUND RECORDER REPORT OF OUTSIDE FILMS FROM [facility] LEE ANN ESCOBAR : ??42 STANDING KNEES ONE VIEW: ??10/23/03 REASON FOR EXAM: ??General osteoarthrosi s. FINDINGS: ??Degenerative arthritic kruger es medial compartments of both knees, moderately a dvanced right, moderate left. ?? PELVIS AND HIPS TWO VIEWS: ??10/23/03 REASON FOR EXAM: ??Osteoarthrosis. FINDINGS: ??Mild degenerative change at the hips, slightly more right than left. ??No foca l bone lesions. Torin Godfrey M.D./kimmie D/T: ??10/27/03 Ordering MD/Provider Initial Interpretat ion: No Initial Interpretation. Electronically filed by Marlin Stewart ??10/23/2003 ??2:52 PM Electronically filed by Bijal Aguilar ??10/27/2003 ??1:09 PM Lio Stone MD GENERAL IMAGING X-RAY KNEE BILAT STANDING (10/23/2003 2:52 PM VIDEO AND SOUND RECORDER) Anatomical Region Laterality Modality Other Impressions 10/23/2003 2:52 PM VIDEO AND SOUND RECORDER REPORT OF OUTSIDE FILMS FROM [facility] LEE ANN ESCOBAR : ??42 STANDING KNEES ONE VIEW: ??10/23/03 REASON FOR EXAM: ??General osteoarthrosi s. FINDINGS: ??Degenerative arthritic kruger es medial compartments of both knees, moderately a dvanced right, moderate left. ?? PELVIS AND HIPS TWO VIEWS: ??10/23/03 REASON FOR EXAM: ??Osteoarthrosis. FINDINGS: ??Mild degenerative change at the hips, slightly more right than left. ??No foca l bone lesions. Torin Godfrey M.D./dmp D/T: ??10/27/03 Ordering MD/Provider Initial Interpretat ion: No Initial Interpretation. Electronically filed by Marlin Stewart ??10/23/2003 ??2:52 PM . Electronically filed by Bijal Aguilar ??10/27/2003 ??1:09 PM Lio Stone MD GENERAL IMAGING documented in this encounter Visit Diagnoses Diagnosis Congestive heart failure, unspecified Edema Depressive disorder, not elsewhere class ified Pain in joint, lower leg Generalized osteoarthrosis, unspecified site Labyrinthitis, unspecified Thoracic or lumbosacral neuritis or radi culitis, unspecified documented in this encounter Care Teams Senior Case Manager Relationship Specialty Start Date End Date Ranjith Hughes MD PCP - General 07/11/02 12/17/13 [address] [place] [address] documented as of this encounter
--- OUTSIDE RECORDS SUMMARY | 2022-07-19 23:03 | XMS_ITS | Encounter Summary ---
:1940 Author Organization [place] Address [facility] [place] [address] Care Team Providers Name Role Phone Ranjith Hughes MD Primary Care Provider Reason for Visit Reason Comments disability JM Encounter Details Date Type Department Care Team Description 10/06/2003 Telephone [facility] Kameron Stone, (RALF ) Adri Reynoso MD [address] [place] [address] [phone] [place] [address] (Wo rk) Social History Tobacco Use Types Packs/Day Years Used Date Smoking Tobacco: Never Assessed Sex Assigned at Date Recorded Not on file documented as of this encounter Miscellaneous Notes Telephone Encounter - 10/06/2003 11:59 PM DIESEL DINKEY OPERATOR >> CONRADO Delgado Oct 08, 2003 12:[address] Corbett and NANDINI relaying message below. (Message at Dr Looney # said she would not be in until the ) Conrado Davis RN >> KAMERON Santoyo Oct 07, 2003 9:52 AM I need a signed release from the patient and i prefer to field enquiries in writing (fax)as I can't take patient time to do this. The patients disability is significantly related to her Negative Notcher Tiffany Leon MD [phone] who will no doubt also require a release. RALF >> BETH Jackson Oct 06, 2003 3:05 PM >> CALL RECEIVED. Contact: Dr. Annelise Corbett calling from [facility]. Requests call back from Dr. ARAMBULA regarding pt's functional capacity . Call Dr. Corbett at [phone]. Chart requested to 's [facility]. Beth Brown RN documented in this encounter Plan of Treatment Not on filedocumented as of this encounter Visit Diagnoses Not on filedocumented in this encounter Care Teams Chemical Unit Operator Relationship Specialty Start Date End Date Ranjith Hughes MD PCP - General 07/11/02 12/17/13 [address] [place] [address] documented as of this encounter
--- OUTSIDE RECORDS SUMMARY | 2022-07-19 23:03 | XMS_ITS | Encounter Summary ---
:1940 Author Organization [place] Address Pending sale to [facility] [place] [address] Care Team Providers Name Role Phone Ranjith Hughes MD Primary Care Provider Reason for Visit Reason Comments Patient/info Update JM Encounter Details Date Type Department Care Team Description 03/03/[address] [facility] Kameron Morataya t/info Update Clinic [place] MD Quan () [address] [place] [phone] (Wo rk) Social History Tobacco Use Types Packs/Day Years Used Date Smoking Tobacco: Never Assessed Sex Assigned at Date Recorded Not on file documented as of this encounter Miscellaneous Notes Telephone Encounter - 03/03/2004 11:59 PM CDT >> HARSH BRANTLEY SunMar 03, 2004 12:27 PM Letter sent. Florecita Brantley RN >> KAMERON MORATAYA SunMar 03, 2004 12:14 PM see letter >> BETH CAM SunMar 03, 2004 11:37 AM >> CALL RECEIVED. Contact: FYI Pt. calling, is upset because [facility] back [facility] Advised pt. it was normal and faxed her a copy to [phone] (home Fax). States is still not feeling wel l.Has continued off and on pain lower left chest and nausea. Is waiting to be placed on Medicare. Not sure how long it will take. Will call back when has insurance. Beth Cam RN documented in this encounter Plan of Treatment Not on filedocumented as of this encounter Visit Diagnoses Not on filedocumented in this encounter Care Teams Mortgage Loan Processing Clerk Relationship Specialty Start Date End Date Ranjith Hughes MD PCP - General 07/11/02 12/17/13 [address] [place] [address] documented as of this encounter
--- OUTSIDE RECORDS SUMMARY | 2022-07-19 23:03 | XMS_ITS | Encounter Summary ---
:1940 Author Organization [place] Address [facility] [place] [address] Care Team Providers Name Role Phone Ranjith Hughes MD Primary Care Provider Encounter Details Date Type Department Care Team Description 11/04/2003 Orders Only [facility] Lio Stone SIS NOT YET Clinic [place] MD Quan DEFINED (Primary Dx) [address] [facility] [address] [place] [id number] Social History Tobacco Use Types Packs/Day Years Used Date Smoking Tobacco: Never Assessed Sex Assigned at Date Recorded Not on file documented as of this encounter Plan of Treatment Not on filedocumented as of this encounter Procedures Procedure Name Priority Date/Time Associated Diagnosis Comme nts C MYOCARDIAL IMAGE Routine 11/04/2003 DIAGNOSIS NOT YET DEFI MARGARITA SINGLE,SPECT documented in this encounter Results MYOCARDIAL IMAGE SINGLE,SPECT (11/04/2003) Anatomical Region Laterality Modality Other Specimen (Source) Anatomical Location Collection Method / Collectio n Time Received Time / Laterality Volume 11/04/2003 Narrative This result has an attachment that is no t available. Lio Stone MD SPECIAL IMAGING STUDIES documented in this encounter Visit Diagnoses Diagnosis DIAGNOSIS NOT YET DEFINED - Primary documented in this encounter Care Teams Geography Faculty Member Relationship Specialty Start Date End Date Ranjith Hughes MD PCP - General 07/11/02 12/17/[id number] [place] [address] documented as of this encounter
--- OUTSIDE RECORDS SUMMARY | 2022-07-19 23:03 | XMS_ITS | Encounter Summary ---
:1940 Author Organization [place] Address [address] [place] [address] Care Team Providers Name Role Phone Ranjith Hughes MD Primary Care Provider Reason for Visit Reason Onset Date Comments Refill Request 06/14/2005 Encounter Details Date Type Department Care Team Description 06/14/2005 Refill [facility] Ranjith Hughes MD Refill Request [place] [address] [phone] Social History Tobacco Use Types Packs/Day Years Used Date Smoking Tobacco: Never Alcohol Use Standard Drinks/Week Comments No 0 (1 standard drink = 0.6 oz pure alcoho l) Sex Assigned at Date Recorded Not on file documented as of this encounter Miscellaneous Notes Telephone Encounter - Aaliyah Reynolds - 06/14/2005 12:08 PM CDT pt went to pharmacy and rx not there, saw yesterday, rx sent to [facility] per pt request and canceled rx [facility] Aaliyah Reynolds RN documented in this encounter Plan of Treatment Not on filedocumented as of this encounter Visit Diagnoses Diagnosis Allergic rhinitis, cause unspecified Nausea alone documented in this encounter Care Teams Risk Management Analyst Relationship Specialty Start Date End Date Ranjith Hughes MD PCP - General 07/11/02 12/17/13 [address] [place] [address] documented as of this encounter
[2022-07-19 23:06] LABS: PCR FLU A Negative PCR FLU A (Negative); PCR FLU B Negative PCR FLU B (Negative); PCR RSV Negative PCR RSV (Negative)
[2022-07-19 23:17] LABS: SARS PCR* POSITIVE SARS-CoV-2 (Negative)
[2022-07-19 23:49] VITALS: BP 138/78; PULSE 71; RESP 18; TEMP 36.9; O2SAT 95
[2022-07-19 23:50] VITALS: BP 138/78; PULSE 71; RESP 18; TEMP 36.9
== END 2022-07-19 23:50 | disposition home or self-care (01) ==
PROVIDERS: Emergency Provider Family Medicine
DX: U07.1 COVID-19 (principal); K52.9 Noninfective gastroenteritis and colitis, unspecified
CPT/HCPCS: 36415; 80048; 85025; 87502; 87634; 87635; 94761; 96374; 99284; J2405; J7030

== ENCOUNTER 2023-08-24 15:12 | Outpatient (CLI) | payer MEDICARE, SELFPAY ==
[2023-08-24 22:10] LABS: Total Protein Urine < 5 mg/dL
[2023-08-24 22:12] LABS: Creatinine Urine 164.9 mg/dL
[2023-08-24 22:16] LABS: Microalbumin Creatinine Ratio 10 mg/g (0-30); Microalbumin Urine 2 mg/dL
[2023-08-25 06:03] LABS: Iron* 101 ug/dL (37-170)
[2023-08-25 06:13] LABS: Percent Iron Saturation 36 % (20-50); Total Iron Binding Capacity 278 ug/dL (265-497)
[2023-08-25 06:53] LABS: Vitamin B12* 254 pg/mL (243-894)
== END 2023-08-24 15:13 | disposition home or self-care (01) ==
PROVIDERS: Visit Provider Family Medicine
DX: I10 Essential (primary) hypertension (principal); R73.9 Hyperglycemia, unspecified; E55.9 Vitamin D deficiency, unspecified; R53.83 Other fatigue; I50.9 Heart failure, unspecified
CPT/HCPCS: 80053; 82043; 82306; 82310; 82570; 82607; 83540; 83550; 83880; 83970; 84156

== ENCOUNTER 2025-04-20 13:55 | Outpatient (CLI) | payer MEDICARE, SELFPAY | END 2025-04-20 13:56 | disposition home or self-care (01) | PROVIDERS: PCP Family Medicine; Visit Provider Physician Assistant Medical | DX: I50.9 Heart failure, unspecified (principal) | CPT/HCPCS: 80053; 80061; 84443 ==

== ENCOUNTER 2025-05-04 03:29 | Emergency (ER) | payer MEDICARE, SELFPAY ==
[2025-05-04 03:35] VITALS: BP 147/100; PULSE 71; RESP 20; TEMP 36.7; O2SAT 93; BMI 32.0
--- NOTE | 2025-05-04 04:11 | ED.GENADULT ---
HPI - General Adult General Chief complaint: Chest Pain Stated complaint: chest pain Time Seen by Provider: 05/04/25 03:56 Source: patient, family and EMS Mode of arrival: EMS History of Present Illness HPI narrative: 85-year-old female presents to the emergency department by EMS for pain underneath her right rib area. Denies any trauma or injury. She has a history of cognitive decline and is an incredibly poor historian. She reports to me that she takes no medications despite the fact that several or listed in her chart it appears that she had an outpatient visit less than 2 weeks ago refilling multiple medications. She denies a history of blood clots in the legs or lungs though documentation suggests that she had these very recently. She is reporting pain underneath her right rib area. Worse with movement and with deep breath. Reports that this started early in the day, she cannot estimate when but does believe it was present by around lunchtime, worsening over night, waking her from sleep but has been present for at least 12 hours. No fever. No productive cough, no illness exposures. She denies any recent pertinent travel but review of the records shows that she was recently discharged from a transitional care unit. She denies a prior history of abdominal surgeries but I still need to gather more records on that as it is clear she is a terrible historian. She does believe that she still has her gallbladder. She does not recall what she had for dinner. EMS placed an IV but per reports, she did not receive any medications through it. Denies abdominal pain, dysuria or hematuria. Points to the right lower rib, upper abdominal area as the source of her pain. No central or substernal area chest pain. Past medical history gathered from records shows a history of heart failure, recent pulmonary embolism, anxiety and memory loss. Medications reviewed from visit on 04/20. Uncertain if she is properly taking these based on her description and the fact that her denies that she is taking medications also. It does appear as though patient's daughter and granddaughter accompanied her to the clinic visit. Unfortunately, they are not present in the wee hours of this ED visit. She denies tobacco use. ROS is notable for the chest area symptoms only, otherwise denies times 12 systems but very poor historian. Multiple antibiotic allergies that she cannot list and name. Related Data Previous Rx's ?Medication ?Instructions ?Recorded donepezil 5 mg tablet 5 mg PO QPM #90 tabs 04/20/25 fluoxetine 40 mg capsule 40 mg PO QPM #90 caps 04/20/25 gabapentin 100 mg capsule 100 mg PO BID #180 caps 04/20/25 olanzapine 2.5 mg tablet 2.5 mg PO BID #180 tabs 04/20/25 rivaroxaban 20 mg tablet (Xarelto) 20 mg PO QDAY #90 tabs 04/20/25 trazodone 50 mg tablet 50 mg PO QHS #90 tabs 04/20/25 Allergies Allergy/AdvReac Type Severity Reaction Status Date / Time ampicillin Allergy Mild Hives Verified 08/24/23 15:48 Cephalosporins Allergy Mild Hives Verified 08/24/23 15:48 erythromycin base Allergy Mild Hives, Verified 08/24/23 15:48 Nausea/Vomiting Penicillins Allergy Mild Hives Verified 08/24/23 15:48 tetracycline Allergy Mild Hives Verified 08/24/23 15:48 clindamycin AdvReac Mild Diarrhea Verified 08/24/23 15:48 [facility] Medical History GERD (gastroesophageal reflux disease) ?K21.9 - Gastro-esophageal reflux disease without esophagitis (ICD-10) Hyperglycemia ?R73.9 - Hyperglycemia, unspecified (ICD-10) Hypocalcemia ?E83.51 - Hypocalcemia (ICD-10) Primary hyperparathyroidism ?E21.0 - Primary hyperparathyroidism (ICD-10) Hypertension ?I10 - Essential (primary) hypertension (ICD-10) Obesity ?E66.9 - Obesity, unspecified (ICD-10) Gout ?M10.9 - Gout, unspecified (ICD-10) Lumbago ?M54.50 - Low back pain, unspecified (ICD-10) Surgical History S/P cecostomy ?Z93.3 - Colostomy status (ICD-10) History of orthopedic surgery ?Z98.890 - Other specified postprocedural states (ICD-10) History of total right knee replacement ?Z96.651 - Presence of right artificial knee joint (ICD-10) History of left knee replacement ?Z96.652 - Presence of left artificial knee joint (ICD-10) History of parathyroidectomy ?E89.2 - Postprocedural hypoparathyroidism (ICD-10) History of appendectomy ?Z90.49 - Acquired absence of other specified parts of digestive tract (ICD-10) History of ankle surgery ?Z98.890 - Other specified postprocedural states (ICD-10) H/O hernia repair ?Z98.890 - Other specified postprocedural states (ICD-10) ?Z87.19 - Personal history of other diseases of the digestive system (ICD-10) H/O dilation and curettage ?Z98.890 - Other specified postprocedural states (ICD-10) Social History Smoking Status: Never smoker Do you use any of these nicotine containing products: None How often do you have a drink containing alcohol: never How often do you have six or more drinks on one occasion: Never AUDIT-C Alcohol total score: 0 Non-prescribed substance use: denies use Exam Const: Vital Signs, click to edit/add: Vital Signs - 24 hr 05/04/25 03:35 05/04/25 05:20 05/04/25 06:02 Temperature 98.1 F Pulse Rate [Pulse Oximeter] 71 76 Respiratory Rate 20 18 Blood Pressure [Ri ght Upper Arm] 147/100 H 161/94 H Pulse Oximetry 93 93 94 Oxygen Delivery Me thod Room Air Room Air Documenting provider has reviewed patient's vital signs: yes Common normals: alert Other: Anxious, very poor historian. Appears well nourished and well hydrated. HENMT: Common normals: normocephalic, moist oral mucous membranes and oropharynx normal Head and scalp: normocephalic Face and sinus: normal facial exam Mouth: oral and palatal mucosa normal Eye: Common normals: conjunctivae normal General eye: normal appearance of both eyes Conjunctiva: conjunctiva(e) normal Neck & C-Spine: Common normals: full ROM and no lymphadenopathy Chest: Common normals: inspection of chest normal and palpation of chest normal Resp: Common normals: normal respiratory effort, no use of accessory muscles and clear to auscultation bilaterally Effort & inspection: able to speak in complete sentences Auscultation: clear to auscultation bilaterally Cardio: Common normals: regular rate, regular rhythm, S1 normal heart sound, S2 normal heart sound and no murmurs Rate: regular rate Rhythm: regular rhythm Heart sounds: S1 normal and S2 normal GI: Common normals: Normal to inspection, nondistended, normoactive bowel sounds present, no hepatosplenomegaly and no masses Palpation: no hepatosplenomegaly Other: Tender to palpation of right upper quadrant with positive Aguilar sign. : Common normals: no CVA tenderness Bladder/kidney exam: no CVA tenderness Back & Pelvis: Common normals: no CVA tenderness Thoracic spine/upper back: normal to inspection Extremity: Common normals: normal capillary refill General: normal exam except as noted Neuro: Common normals: moves all extremities Sensorium/orientation: alert Psych: Appearance: grossly normal Memory/cognition: memory grossly impaired Insight: limited Judgement: fair Skin: Common normals: no rashes or lesions noted General skin exam: no rashes or lesions noted Course Course ED Course: 85-year-old female with pain underneath the right ribs with positive Aguilar sign on exam. Differential diagnosis including cholecystitis, colitis, gastritis, pancreatitis, pulmonary embolism, acute versus subacute versus chronic on that. Acute cardiac process, heart failure, pneumonia, musculoskeletal etiology, referred pain, many others. Unfortunately patient's insight does make the interview and medical decision making a bit more difficult. Will place peripheral IV, obtain EKG. Placed on hoop riveter. Labs to workup acute cardiac, pulmonary and GI issues. D-dimer is likely to be positive will likely require CT of the chest abdomen and pelvis in order to sort this out. Await findings. Will give cord a mg of Dilaudid for pain in the interim. Reevaluation(s) Time of Reevaluation #1: 06:32 Reevaluation #1: Counseled patient and has been on CT findings. It is clear they retained none of what I discussed. Symptoms seem consistent with flare up of hiatal hernia. Remainder of imaging appears normal. This certainly would not evaluate for any new PE but since there is no tachycardia and no signs of hypoxia, I do not think that there is a new pulmonary embolism the other certainly could be some pleural irritation from the healing of these, especially as she is not properly using her blood thinners. Will give a dose of Tylenol and omeprazole to help with hiatal hernia and I have discussed use of [id number] famotidine once daily to help reduce inflammation. I have also discussed that this is likely to continue to flare up and it is okay to try the antacids and Tylenol if symptoms are mild and see if they improve within a 1/2 hour or so. I verbalized significant concern to them that I do not think it is appropriate that she continues to live independently without a strong minded adult watching over her, managing her medications and everyday life. I think it is time for them to consider a memory care facility, assisted living or other more confined living arrangement. She does not seem to have the medical decision making ability to troubleshoot the simple medical concerns or remember enough of her medical history to safely navigate the healthcare system. Patient and her report that they will talk this over with her daughter and are not interested in additional resources at this time or a social media director consult. I have asked them to make a follow-up appointment with her primary care provider next week to ensure that symptoms continue to improve, to ensure that she is properly taking her medications and to discuss alternative living arrangements if this is not the case. I am not confident that they have the ability to navigate the healthcare system enough to do so but there is no absolute emergent need to detain her at this time as she is well-nourished, well-hydrated and her does seem to be meeting her basic needs though not able to help her navigate the healthcare system adequately. I have asked the nursing team to call family to see if they can help get her home and review the recommendations outlined as above. Vital Signs Vital signs: Initial Vital Signs Temperature 98.1 F 05/04/25 03:35 Temperature Source Temporal Artery Scan 05/04/25 03:35 Pulse Rate 71 05/04/25 03:35 Respiratory Rate 20 05/04/25 03:35 Blood Pressure 147/100 H 05/04/25 03:35 Blood Pressure Mean 115 H 05/04/25 03:35 Blood Pressure Position Sitting 05/04/25 03:35 Pulse Oximetry 93 05/04/25 03:35 Oxygen Delivery Method Room Air 05/04/25 03:35 Vital Signs Temperature 98.1 F 05/04/25 03:35 Pulse Rate 71 05/04/25 03:35 Respiratory Rate 20 05/04/25 03:35 Blood Pressure 147/100 H 05/04/25 03:35 Pulse Oximetry 93 05/04/25 03:35 Oxygen Delivery Method Room Air 05/04/25 03:35 Temperature 98.1 F 05/04/25 03:35 Pulse Rate 76 05/04/25 06:02 Respiratory Rate 18 05/04/25 06:02 Blood Pressure 161/94 H 05/04/25 06:02 Pulse Oximetry 94 05/04/25 06:02 Oxygen Delivery Method Room Air 05/04/25 06:02 Medications Administered Medications: Generic Name Dose Route Start Last Admin Trade Name Freq PRN Reason Stop Dose Admin Acetaminophen 1,000 mg 05/04/25 06:31 05/04/25 06:39 Acetaminophen 500 Mg Tablet PO 05/04/25 06:32 1,000 mg ONCE ONE Administration Omeprazole 20 mg 05/04/25 06:31 05/04/25 06:39 Omeprazole [address] PO 05/04/25 06:32 20 mg ONCE ONE Administration Discontinued Medications Generic Name Dose Route Start Last Admin Trade Name Freq PRN Reason Stop Dose Admin Hydromorphone HCl 0.25 mg 05/04/25 04:09 05/04/25 04:16 Hydromorphone 0.5 Mg/0.5 Ml Inj IVP 05/04/25 04:10 0.25 mg ONCE ONE Administration Medical Decision Making Lab Data Lab results reviewed: Yes I reviewed the patient's lab results Lab results narrative: Labs are reassuring. No significant signs of infection, inflammation, elevated liver enzymes or abnormal creatinine. D-dimer is of course elevated from known recent pulmonary emboli but there does not seem to be signs of worsening, necrosis or infarct on imaging. I do suspect that the hiatal hernia seen is the etiology of her symptoms and she is feeling much better at the time of my repeat examination. Labs: Lab Results 05/04/25 05/04/25 05/04/25 Range/Units 03:57 04:05 05:19 WBC 6.17 (4.50-11.00) K/uL RBC 4.08 (4.00-5.20) m/uL Hgb 12.9 (12.0-16.0) gm/dL Hct 40.3 (33.0-51.0) % MCV 99 (80-100) fL MCH 32 (26-34) pg MCHC 32 (32-36) gm/dL RDW Coeff of Lori 14.2 (11.5-15.5) % Plt Count 101 L (140-440) K/uL Neut % (Auto) 62.8 (42.0-72.0) % Lymph % (Auto) 25.9 (20-44) % [place] % (Auto) 7.6 (0.0-11.0) % Eos % (Auto) 3.1 (0.0-7.0) % Baso % (Auto) 0.3 (0.0-3.0) % Neut # (Auto) 3.87 (1.7-7.0) K/uL Lymph # (Auto) 1.60 (0.90-2.90) K/uL [place] # (Auto) 0.50 (0.00-0.90) K/UL Eos # (Auto) 0.19 (0.00-0.50) K/uL Baso # (Auto) 0.02 (0.00-0.30) K/uL Abs Immat Gran (auto) 0.02 (0.00-0.30) K/uL Imm/Tot Granulo (auto) 0.3 % D-Dimer Quant (PE/DVT) 2.43 H (0.00-0.50) ug/ml Sodium 139 (135-149) mmol/L Potassium 3.3 L (3.6-5.1) mmol/L Chloride 105 (96-114) mmol/L Carbon Dioxide 30 (20-32) mmol/L Anion Gap 4 L (7-15) mEq/L BUN 16 (7-30) mg/dL Creatinine 0.8 (0.5-1.5) mg/dL Estimated Creat Clear 33.71 Estimated GFR 73 ml/min Glucose 114 (60-115) mg/dL Calcium 9.2 (8.4-10.6) mg/dL Total Bilirubin 0.8 (0.1-1.5) mg/dL AST 18 (12-35) U/L ALT 11 (4-35) U/L Alkaline Phosphatase 69 (40-150) U/L Troponin I < 0.01 (0.01-0.04) ng/mL C-Reactive Protein < 0.5 L (0.5-1.0) mg/dL NT-Pro-B Natriuret Pep 152 (See Note) pg/mL Total Protein 6.2 (6.0-8.3) g/dL Albumin 3.6 (3.3-5.0) g/dL Lipase 32 (23-300) U/L Urine Color Yellow (Yellow) Urine Appearance Cloudy A (Clear) Urine pH 6.0 (5.0-8.5) Ur Specific [place] 1.025 (1.000-1.030) Urine Protein 1+ A (Negative) Urine Glucose (UA) Negative (Negative) Urine Ketones Trace A (Negative) Urine Blood Negative (Negative) Urine Nitrite Negative (Negative) Urine Bilirubin Negative (Negative) Urine Urobilinogen 1.0 (0.2-1.0) Ur Leukocyte Esterase Trace A (Negative) Urine RBC 5-10 A (0-2) Urine WBC 2-5 (0-5) Ur Squamous Epith Cells Moderate A (None-Few) Urine Bacteria Moderate A (None) POC Troponin I 0.01 (0.01-0.04) ng/ml Imaging Data CT Chest/Ab/Pelvis: Attestation: I have reviewed the pertinent imaging results. My impression: Large hiatal hernia. There is no evidence of a large pneumonia or area of ischemic lung would explain the patient's symptoms. Does not seem to be evidence of gallbladder disease. Radiologist's impression: CHEST Airway: Normal tracheobronchial tree. Lungs: Mild atelectasis around the hernia sac. Minimal peripheral basilar reticular opacities. No nodules or masses. No consolidations. Pleura: No pleural effusion. No pneumothorax. Lymph nodes: No thoracic adenopathy. Mediastinum: No pneumomediastinum. Large hiatal hernia containing most of the stomach, the pancreatic tail, and parts of the splenic artery and vein. No inflammatory stranding or fluid within the hernia sac. Heart and great vessels: No pericardial effusion. Normal cardiac chamber size. No substantial calcified atherosclerotic plaques. No aortic aneurysm. Normal caliber main pulmonary artery. This exam was not ordered to evaluate for pulmonary thromboembolism. Only the central pulmonary arteries are well opacified. No pulmonary embolism seen. Chest wall: Normal. No masses. ABDOMEN AND PELVIS Liver: There is a cyst in the dome of the liver that measures 3.5 cm. There is a 1 centimeter cyst in the left lobe of the liver. There is a 1.5 centimeter cyst in the right lobe of the liver. There is a dystrophic calcification along the dome of the right diaphragm anteriorly. Gallbladder and bile ducts: Normal gallbladder. No bile duct dilation. Pancreas: Pancreas is partially herniated through the hiatal hernia into the chest. No pancreatitis. Pancreatic duct is not dilated. Spleen: Normal. Adrenal glands: Normal. Kidneys: Normal overall renal size and position. There are bilateral renal cysts including parapelvic left renal cysts. No calculi. No urinary tract dilation. Urinary bladder: Partially filled. Pelvis: Multiple phleboliths. Streak artifact from the hip arthroplasty. Vessels: Minimal atherosclerosis. The splenic artery and vein are herniated through the hiatal hernia. No acute vascular abnormality seen. Bowel: No gastritis or gastric volvulus. No dilated or inflamed small bowel or colon. Appendectomy sutures.. [id number] stool burden. Lymph nodes: No adenopathy. Peritoneum: No ascites. Abdominal wall: Diastasis at the umbilicus. No bowel containing hernia. BONES: Right hip arthroplasty. Partially visualized lipomatous mass in the left adductor compartment. As included in the field of view measures 3.8 x 11.1 cm. No focal bone lesions. Advanced disc and facet degeneration. No acute fracture. IMPRESSION: 1. No acute findings to explain the patient`s symptoms of right upper quadrant pain. 2. Numerous incidental findings as above. Discharge Plan Discharge Clinical Impression: Hernia, hiatal Patient Disposition: Home w/ Parent or Adult Condition: Improved Instructions: Hiatal Hernia (DC) Additional Instructions: I am glad that the medicines were helpful for you today. There were no signs of heart attack, worsening of your blood clots or any other serious condition. The CT revealed that you have a flare up of your hiatal hernia. This is a common condition in older women where the stomach pushes up into the chest cavity causing a pressure sensation. It is common after large meals and more so likely to happen at night. This will likely flare-up again on you in the future. I would recommend that you take [id number] famotidine 1 pill once daily to help reduce stomach acid and irritation. I do have significant concerns with your memory and do not think that living independently is safe for you. Since you do have family to look in on you and you are no longer driving, I think that there is a little time to sort out these concerns. You have told me that you are not taking any medications and based on your blood clots and recent outpatient clinic visit, you really should be taking medication. You do not seem to have memory of your recent primary care visit. I have reviewed these notes. I do think it is time for you to consider moving into a memory care facility or assisted living. Please discuss this with your family and or primary care provider as soon as possible. Please call to make a follow-up appointment next week to discuss safe living options. Activity Level: No Restrictions Discharge Diet: Regular Prescriptions: No Action Xarelto 20 mg tablet 20 mg PO QDAY Qty: 90 0RF Rx Instructions: must administer with evening meal fluoxetine 40 mg capsule 40 mg PO QPM Qty: 90 0RF olanzapine 2.5 mg tablet 2.5 mg PO BID Qty: 180 0RF gabapentin 100 mg capsule 100 mg PO BID Qty: 180 0RF donepezil 5 mg tablet 5 mg PO QPM Qty: 90 3RF trazodone 50 mg tablet 50 mg PO QHS Qty: 90 0RF Follow Up/Referrals: Marisela Lincoln PA-C [Primary Care Provider, Family Practice] Stand Alone Forms: [employer] Info Instructions
--- NOTE | 2025-05-04 04:12 | PC.NURSE ---
nursing-pt asked if she could go to [facility]. I don't think I can go right now.
[2025-05-04 04:13] LABS: Hematocrit 40.3 % (33.0-51.0); Hemoglobin* 12.9 gm/dL (12.0-16.0); Immature Granulocytes Abs Auto 0.02 K/uL (0.00-0.30); Immature Granulocytes Pct Auto 0.3 %; Lymphocytes Absolute Auto 1.60 K/uL (0.90-2.90); Mean Corpuscular HGB Conc 32 gm/dL (32-36); Mean Corpuscular Hemoglobin 32 pg (26-34); Mean Corpuscular Volume 99 fL (80-100); RDW Coefficient of Variation % 14.2 % (11.5-15.5); Red Blood Count 4.08 m/uL (4.00-5.20); White Blood Count* 6.17 K/uL (4.50-11.00)
[2025-05-04 04:20] LABS: Troponin, Point-of-Care* 0.01 ng/ml (0.01-0.04)
[2025-05-04 04:20] LABS: Slide Review Reflex No
[2025-05-04 04:26] LABS: Albumin* 3.6 g/dL (3.3-5.0); Chloride* 105 mmol/L (96-114); Potassium* 3.3 mmol/L (3.6-5.1); Sodium* 139 mmol/L (135-149)
[2025-05-04 04:28] LABS: Alanine Aminotransferase* 11 U/L (4-35); Aspartate Amino Transferase* 18 U/L (12-35); Blood Urea Nitrogen* 16 mg/dL (7-30); Creatinine* 0.8 mg/dL (0.5-1.5); Est. Creatinine Clearance* 33.71; Estimated Glomerular Filt Rate 73 ml/min
[2025-05-04 04:29] LABS: Alkaline Phosphatase* 69 U/L (40-150); Anion Gap 4 mEq/L (7-15); Bilirubin Total* 0.8 mg/dL (0.1-1.5); Calcium* 9.2 mg/dL (8.4-10.6); Carbon Dioxide* 30 mmol/L (20-32); Glucose* 114 mg/dL (60-115); Total Protein* 6.2 g/dL (6.0-8.3)
[2025-05-04 04:32] LABS: D Dimer Quantitative* 2.43 ug/ml (0.00-0.50)
--- NOTE | 2025-05-04 04:38 | CRLHL7_ITS ---
For Patients: As a result of the 21st Century Cures Act, medical imaging exams and procedure reports are released immediately into your electronic medical record. You may view this report before your referring provider. If you have questions, please contact your health care provider. INDICATION: Right upper quadrant pain. History of pulmonary embolism. COMPARISON: None TECHNIQUE: CT chest, abdomen, and pelvis with contrast. Multiplanar axial, coronal, and sagittal reformats are included. MIP images to improve detection of pulmonary nodules are included. Intravenous contrast: 85 mL Isovue 370. FINDINGS: CHEST Airway: Normal tracheobronchial tree. Lungs: Mild atelectasis around the hernia sac. Minimal peripheral basilar reticular opacities. No nodules or masses. No consolidations. Pleura: No pleural effusion. No pneumothorax. Lymph nodes: No thoracic adenopathy. Mediastinum: No pneumomediastinum. Large hiatal hernia containing most of the stomach, the pancreatic tail, and parts of the splenic artery and vein. No inflammatory stranding or fluid within the hernia sac. Heart and great vessels: No pericardial effusion. Normal cardiac chamber size. No substantial calcified atherosclerotic plaques. No aortic aneurysm. Normal caliber main pulmonary artery. This exam was not ordered to evaluate for pulmonary thromboembolism. Only the central pulmonary arteries are well opacified. No pulmonary embolism seen. Chest wall: Normal. No masses. ABDOMEN AND PELVIS Liver: There is a cyst in the dome of the liver that measures 3.5 cm. There is a 1 centimeter cyst in the left lobe of the liver. There is a 1.5 centimeter cyst in the right lobe of the liver. There is a dystrophic calcification along the dome of the right diaphragm anteriorly. Gallbladder and bile ducts: Normal gallbladder. No bile duct dilation. Pancreas: Pancreas is partially herniated through the hiatal hernia into the chest. No pancreatitis. Pancreatic duct is not dilated. Spleen: Normal. Adrenal glands: Normal. Kidneys: Normal overall renal size and position. There are bilateral renal cysts including parapelvic left renal cysts. No calculi. No urinary tract dilation. Urinary bladder: Partially filled. Pelvis: Multiple phleboliths. Streak artifact from the hip arthroplasty. Vessels: Minimal atherosclerosis. The splenic artery and vein are herniated through the hiatal hernia. No acute vascular abnormality seen. Bowel: No gastritis or gastric volvulus. No dilated or inflamed small bowel or colon. Appendectomy sutures.. Bgcm-sp-[id number] stool burden. Lymph nodes: No adenopathy. Peritoneum: No ascites. Abdominal wall: Diastasis at the umbilicus. No bowel containing hernia. BONES: Right hip arthroplasty. Partially visualized lipomatous mass in the left adductor compartment. As included in the field of view measures 3.8 x 11.1 cm. No focal bone lesions. Advanced disc and facet degeneration. No acute fracture. IMPRESSION: 1. No acute findings to explain the patient`s symptoms of right upper quadrant pain. 2. Numerous incidental findings as above. Please note that all CT scans at this facility use dose modulation, iterative reconstruction, and/or weight-based dosing when appropriate to reduce radiation dose to as low as reasonably achievable. Dictated by Shira Moore MD @ 05/04/2025 6:08:34 AM (Electronically Signed)
[2025-05-04 04:41] LABS: NT Pro B Type NatriureticPept* 152 pg/mL (See Note)
[2025-05-04 05:20] VITALS: O2SAT 93
[2025-05-04 05:26] LABS: Appearance Urine Cloudy (Clear)
[2025-05-04 06:02] VITALS: BP 161/94; PULSE 76; RESP 18; O2SAT 94
[2025-05-04] MEDS: ACETAMINOPHEN 500 MG TABLET 1000 MG PO (06:39)
[2025-05-04] MEDS: OMEPRAZOLE 20 MG CAPSULE DR PO (06:39)
--- NOTE | 2025-05-04 12:54 | PC.SOCIAL ---
Social Service Consult: CARMEN met with patient, patient's spouse, daughter and granddaughter. Patient's daughter states that they are in the process of trying to get patient and spouse into an [facility] or penitentiary. Daughter reports that her nephew is doing the Medical Assistance side of things and that they have a RN coming out to complete an assessment on 05/26. Daughter reports that patient is already on medical assistance. SW discussed this is likely to get patient on a waiver program to then assist with getting patient into a facility. Daughter states feeling like she doesn't know where to turn. Daughter explains that they have already been in contact with [facility] in [place], but it isn't going anywhere yet. SW provided information for the Senior Linkage Line, [facility], a list of [facility] in case [facility] doesn't accept or has a long waitlist, and information for a navigator who assists people with getting into assisted livings in the area they are looking (close to [place]). Daughter states she has no other questions or concerns at this time, and patient had no questions or concerns either.
== END 2025-05-04 08:19 | disposition home or self-care (01) ==
PROVIDERS: Emergency Provider Family Medicine; PCP Physician Assistant Medical
DX: K44.9 Diaphragmatic hernia without obstruction or gangrene (principal); R07.9 Chest pain, unspecified; Z91.89 Other specified personal risk factors, not elsewhere classified; Z79.01 Long term (current) use of anticoagulants; Z91.148 Patient's other noncompliance with medication regimen for other reason
CPT/HCPCS: 36415; 71260; 74177; 80053; 81001; 83690; 83880; 84484; 85025; 85379; 86140; 87086; 93005; 94761; 96374; 99284; 99285; A9270; J1171; Q9967